=== PATIENT | male | born 1950 | race Caucasian/White ===

== ENCOUNTER 2016-10-02 22:45 | Emergency (ER) | payer BC ==
[~2016-10-02] VITALS: Ht 170.2 cm; Wt 103.9 kg
[~2016-10-02 22:45] MED LIST: ALT5 PO; ASPITAB67 PO; ATOR-24 PO; CLX20 PO; CYAN1TAB17 PO; INSDGIPEN SQ; INSU100I2 SQ; LEVO150T9 PO; METF500T5 PO; MULT-190 PO; MULT-506 PO
[2016-10-02 22:48] VITALS: TEMP 36.8; Ht 170.2 cm; Wt 103.9 kg
--- NOTE | 2016-10-02 23:25 | EMERGENCY ROOM VISIT NOTE ---
History Report prepared by Qing: Roverto Stone Under the Supervision of: Dr. Rafiq Larson M.D. First contact with patient: 23:08 Chief Complaint: OVERDOSE (ACCIDENTAL) Stated Complaint: TOOK 30 UNITS OF HUMALOG INSTEAD OF LANTUS History of Present Illness The patient is a 66 year old male who presents to the Emergency Room with complaints of a sudden insulin overdose occurring around 2200 tonight. The patient states that his sugar was up around 313, and he took 33 units of Humalog by accident, instead of his Lantus. The patient states that when his sugars get low he gets very argumentative. The patient denies any chest pain. Source of History: patient, spouse/significant other Onset: 2200 Position: other (global) Quality: other (insulin overdose) Timing: other (sudden) Associated Symptoms: No chest pain Review of Systems See HPI for pertinent positives & negatives. A total of 10 systems reviewed and were otherwise negative. Past Medical & Surgical Medical Problems: (1) Altered level of consciousness (2) Diabetes (3) Diabetic foot ulcer (4) Diabetic peripheral neuropathy associated with type 2 diabetes mellitus (5) Hyperlipidemia Nec/Nos (6) Hypertension Nos (7) Hypoglycemia (8) Hypothyroidism Nos (9) Loss of sensation Family History Cancer Diabetes mellitus Hypertension Social History Smoking Status: Never Smoker Marital Status: Housing Status: lives with significant other Occupation Status: employed, retired Current/Historical Medications Scheduled Atorvastatin (Lipitor), 40 MG PO QAM Brinzolamide-Brimonidine Tartr (Simbrinza), 1 DROP OP BID Citalopram (Citalopram Hydrobromide), 20 MG PO QAM Cyanocobalamin (B-12), 2,500 MCG PO QAM Insulin Glargine (Lantus Solostar), 32 UNITS SQ QPM Insulin Lispro (Human) (Humalog Kwikpen), UNITS SQ UD Levothyroxine Sodium (Levothyroxine Sodium), 1 TAB PO QAM Metformin Hcl Er (Glucophage Er), 1,000 MG PO DAILY @ EVENING MEAL Multivitamin (Multivitamin), 1 TAB PO QAM Ocuvite Preservision (Ocuvite Preservision), 1 TAB PO QAM Ramipril (Ramipril), 5 MG PO QAM Scheduled PRN Zogszqk-Ycxftqwredlxg-Bpaxujnz (Vanquish), 1 TAB PO TID PRN for Migraine Allergies Coded Allergies: Iodinated Diagnostic Agents (Verified Allergy, Unknown, PT UNSURE OF EXACT RXN BUT HAD ISSUE DURING TEST, 10/02/16) Iodine (Verified Allergy, Unknown, TOPICAL REDNESS AND EDEMA, 10/02/16) Physical Exam Vital Signs Date Time Temp Pulse Resp B/P Pulse Ox O2 Delivery O2 Flow Rate FiO2 10/03/16 00:48 73 18 139/71 97 10/03/16 00:32 73 18 139/71 97 Room Air 10/02/16 22:48 36.8 92 20 166/82 99 Room Air Physical Exam GENERAL: Patient is well appearing and in no acute distress. HEENT: No acute trauma, normocephalic atraumatic, mucous membranes moist, no nasal congestion, no scleral icterus. NECK: No stridor, no adenopathy, no meningismus, trachea is midline. LUNGS: No dyspnea. Clear to auscultation and equal bilaterally. No wheeze, no rhonchi. HEART: Regular rate and rhythm. No murmurs, rubs, gallops appreciated. ABDOMEN: Soft, nontender, bowel sounds positive, no masses appreciated, no peritonitis. BACK: No midline tenderness, no CVA tenderness EXTREMITIES: Normal motion all extremities, no cyanosis, no edema. NEUROLOGIC: Alert and oriented, no acute motor or sensory deficits, no focal weakness, cranial nerves grossly intact. SKIN: No rash, no jaundice, no diaphoresis. Medical Decision & Procedures Laboratory Results Test 10/03/16 00:35 Bedside Glucose 138 mg/dl (70-99) Laboratory results as reviewed by me. ED Course 2308: The patient was evaluated in room A2. A complete history and physical exam was performed. 0049: Reevaluated the patient, and he feels well. Discussed results and discharge instructions: He verbalized understanding and agreement. The patient is ready for discharge. Medical Decision Pleasant 66 yr old male arrives after accidentally giving himself 30 U of Humalog rather than his long acting lantus. This was not suicide attempt nor attempt at self harm. Given food on arrival. At 1.5-2 hours his BG troughed and then started coming back up. Stable, no distress and feels well. With improvement in BG and stable no indication for further monitoring, especially as he has at home. Will take half dose his Lantus when he gets home and monitor BG closely over next 12-24 hours. Impression Primary Impression: Accidental medication overdose Scribe Attestation The scribe's documentation has been prepared under my direction and personally reviewed by me in its entirety. I confirm that the note above accurately reflects all work, treatment, procedures, and medical decision making performed by me. Departure Information Dispostion Home / Self-Care Referrals Addy Dewitt M.D. (PCP) Forms HOME CARE DOCUMENTATION FORM, IMPORTANT VISIT INFORMATION Patient Instructions My [facility] Additional Instructions Take a half dose of your base Lantus dosing for the evening. Monitor your blood sugars closely over the next few hours and closely throughout the day. If confusion, altered mental status, seizures, vomiting, or other concerns, call 911 or return immediately. Problem Qualifiers Primary Impression: Accidental medication overdose Encounter type: initial encounter Qualified Codes: T50.901A - Poisoning by unspecified drugs, medicaments and biological substances, accidental ( unintentional), initial encounter
[2016-10-02] MEDS ORDERED: BRIN3SUS OP (23:36)
[2016-10-02] MEDS ORDERED: CLX20 PO (23:36)
[2016-10-02] MEDS ORDERED: RAMI5CAP PO (23:36)
[2016-10-03 00:48] VITALS: BP 139/71; PULSE 73; O2SAT 97
[2017-01-10] MEDS ORDERED: OXYC-57 PO (15:31)
[2017-01-10] MEDS ORDERED: INSDGIPEN SQ (15:31)
== END 2016-10-03 00:49 | disposition home or self-care (01) ==
LOC: C.EDB 22:46 → C.EDA 10-03 00:49
DX: T38.3X1A Poisoning by insulin and oral hypoglycemic [antidiabetic] drugs, accidental (unintentional), initial encounter (principal); X58.XXXA Exposure to other specified factors, initial encounter; E11.40 Type 2 diabetes mellitus with diabetic neuropathy, unspecified; E78.5 Hyperlipidemia, unspecified; I10 Essential (primary) hypertension; E03.9 Hypothyroidism, unspecified; Z79.4 Long term (current) use of insulin; Z79.84 Long term (current) use of oral hypoglycemic drugs; Z83.3 Family history of diabetes mellitus; Z82.49 Family history of ischemic heart disease and other diseases of the circulatory system

== ENCOUNTER 2017-01-08 13:01 | Inpatient (IN) | payer BC, OTHER ==
[~2017-01-08] VITALS: Ht 170.2 cm; Wt 100.4 kg
[~2017-01-08 13:01] MED LIST changes: -ALT5 PO; +BRIN3SUS OP; +RAMI5CAP PO
--- NOTE | 2017-01-08 13:26 | EMERGENCY ROOM VISIT NOTE ---
History Report prepared by Qing: Rachelle Yoon Under the Supervision of: Dr. Gregor Gabriel M.D. First contact with patient: 13:06 Chief Complaint: CHEST PAIN Stated Complaint: CHEST PAIN History of Present Illness The patient is a 66 year old white male who presents to the Emergency Room with complaints of a sudden fall that occurred around 0900. The patient states that he woke at 0900 and went go to upstairs to go to the bathroom. He states that he fell down approximately 6 stairs. The patient reports a positive LOC, noting that he woke up on the ground. He states that laid on the ground for an extended period of time, noting that he developed back pain and central chest pain. The patient denies any diaphoresis, shortness of breath, or chest pain prior to the fall. He denies being on any anti-coagulants. The patient denies any change in medications. He denies any headache, fever, chills, or abdominal pain. The patient denies taking anything for his pain. He states that he has noticed new pain to his bilateral legs due to the fall. Source of History: patient Onset: around 0900 Position: other (global) Quality: other (fall) Timing: other (sudden) Associated Symptoms: + LOC, + chest pain, + back pain, No fevers, No chills , No headache, No SOB, No abdominal pain Review of Systems See HPI for pertinent positives and negatives. A total of ten systems were reviewed and were otherwise negative. Past Medical & Surgical Medical Problems: (1) Altered level of consciousness (2) Diabetes (3) Diabetic foot ulcer (4) Diabetic peripheral neuropathy associated with type 2 diabetes mellitus (5) Fall (6) Hyperlipidemia Nec/Nos (7) Hypertension Nos (8) Hypoglycemia (9) Hypothyroidism Nos (10) Loss of sensation Family History Cancer Diabetes mellitus Hypertension Social History Smoking Status: Never Smoker Marital Status: Housing Status: lives with significant other Occupation Status: employed, retired Current/Historical Medications Scheduled Atorvastatin (Lipitor), 40 MG PO QAM Citalopram (Citalopram Hydrobromide), 20 MG PO QAM Cyanocobalamin (B-12), 2,500 MCG PO QAM Escitalopram Oxalate (Lexapro), 20 MG PO DAILY Insulin Glargine (Lantus Solostar), 32 UNITS SQ QPM Insulin Lispro (Human) (Humalog Kwikpen), UNITS SQ UD Levothyroxine Sodium (Levothyroxine Sodium), 1 TAB PO QAM Metformin Hcl Er (Glucophage Er), 1,000 MG PO DAILY @ EVENING MEAL Ramipril (Ramipril), 5 MG PO QAM Scheduled PRN Hydrocodone/Acetaminophen 5MG/325MG ([place] 5MG/325MG), 1 TABLET PO Q4 PRN for Pain Allergies Coded Allergies: Iodinated Diagnostic Agents (Verified Allergy, Unknown, PT UNSURE OF EXACT RXN BUT HAD ISSUE DURING TEST, 10/02/16) Iodine (Verified Allergy, Unknown, TOPICAL REDNESS AND EDEMA, 10/02/16) Physical Exam Vital Signs Date Time Temp Pulse Resp B/P (MAP) Pulse Ox O2 Delivery O2 Flow Rate FiO2 01/08/17 14:50 88 18 152/80 96 Room Air 01/08/17 13:22 96 Room Air 01/08/17 13:22 96 Room Air 01/08/17 13:22 36.9 85 16 169/82 96 Room Air 01/08/17 13:13 93 Physical Exam GENERAL: Awake, alert, well-appearing, NAD HENT: Normocephalic, atraumatic. EYES: Normal conjunctiva. Sclera non-icteric. Right greater than left anisocoria, but equally reactive to light, EOMI. Vision is grossly normal NECK: Supple. No nuchal rigidity. FROM. No c-spine tenderness. RESPIRATORY: CTAB, no rhonchi, wheezing, crackles CARDIAC: RRR, no MRG ABDOMEN: Soft, NTND, BS+ BACK: No paraspinal tenderness, no step-off, no lumbar or thoracic tenderness. MSK: Anterior chest wall pain, no crepitus, no bruising, mild right hip pain, left medial tibial pain, right lateral fibular pain, no LE edema NEURO: GCS 15, CN 2-12 intact, 5/5 upper and lower extremity strength, moves all 4s on command SKIN: No rash or jaundice noted. Medical Decision & Procedures ER Provider Diagnostic Interpretation: Radiology results as stated below per my review and radiologist interpretation: RIGHT TIBIA AND FIBULA 2 VIEWS CLINICAL HISTORY: Fall with leg pain. FINDINGS: AP and lateral views of the right tibia and fibula are obtained. No prior studies are available for comparison at the time of dictation. The skeletal structures are osteopenic. There is no radiographic evidence of right tibial or fibular fracture. The knee and ankle joints are grossly maintained. Dermal calcifications are noted in the calf. Mild soft tissue swelling is suggested. There is atherosclerotic calcification of the regional vessels. Advanced arthritic change is partially seen in the midfoot. There is a large plantar calcaneal enthesophyte. IMPRESSION: 1. Mild soft tissue swelling with no radiographic evidence of right tibial or fibular fracture. 2. Osteopenia and degenerative change as above. Electronically signed by: Ankit Lovell M.D. 01/08/2017 2:44 PM Dictated Date/Time: 01/08/2017 2:43 PM LEFT TIBIA/FIBULA 2 VIEWS ROUTINE CLINICAL HISTORY: Left lower leg pain status post trauma COMPARISON: None. DISCUSSION: The bones are osteopenic. No acute fractures or dislocations are visualized. There are vascular calcifications present. There is a plantar calcaneal spur. Arthritic changes are present within the midfoot. IMPRESSION: No acute fractures identified. Electronically signed by: Masoud Figueroa M.D. 01/08/2017 2:47 PM Dictated Date/Time: 01/08/2017 2:46 PM PELVIS MIN 3 VIEWS CLINICAL HISTORY: Pelvic pain status post trauma COMPARISON STUDY: No previous studies for comparison. FINDINGS: No acute fractures are visualized. There are mild degenerative changes within the hips. There is no SI joint diastases. There is no symphysis diastases. IMPRESSION: No fractures identified. Electronically signed by: Masoud Figueroa M.D. 01/08/2017 2:42 PM Dictated Date/Time: 01/08/2017 2:[address] HEAD WITHOUT CONTRAST (CT) CLINICAL HISTORY: Head trauma. Syncope. Anisocoria. COMPARISON STUDY: No previous studies for comparison. TECHNIQUE: Axial CT of the brain is performed from the vertex to the skull base. IV contrast was not administered for this examination. A dose lowering technique was utilized adhering to the principles of ALARA. CT DOSE: 1368.20 mGy.cm FINDINGS: No intra or extra-axial mass lesions are visualized. There is no CT evidence of acute cortical infarction. There is no evidence of midline shift. There is no acute hemorrhage. No calvarial fractures are visualized. There are patchy white matter hypodensities likely on a small vessel basis. There is no evidence of pathologic ventricular dilatation. There is no evidence of acute sinusitis. There is scalp edema at the right posterior at vertex IMPRESSION: No acute intracranial findings Electronically signed by: Masoud Figueroa M.D. 01/08/2017 2:12 PM Dictated Date/Time: 01/08/2017 2:11 PM (CHEST) THORAX WITHOUT CT DOSE: HISTORY: fall down stairs, anterior chest wall/sternal pain TECHNIQUE: Multiaxial CT images of the chest were performed without contrast. A dose lowering technique was utilized adhering to the principles of ALARA. COMPARISON: Chest 07/10/2007. FINDINGS: Nondisplaced bilateral upper manubrial fractures adjacent to the first rib articulations. Slightly displaced bilateral anterior first rib fractures. Mildly displaced right posterior right second through fifth rib fractures and nondisplaced right lateral third and fourth rib fractures. Nondisplaced fractures through the right anterior second and third costochondral junctions. No pneumothorax. The central airways are patent. A 4 mm nodule within the left lung apex on image 40. Mild dependent changes/atelectasis at the lung bases. Punctate calcified granulomas within the right middle lobe. A 4 mm nodule within the right lower lobe on image 209. Evaluation for mediastinal injury is suboptimal due to the lack of intravenous contrast. Small amount of retromanubrial hemorrhage. This is separate from the adjacent mediastinal vasculature structures. This is likely due to the manubrial fractures. The visualized liver, spleen, adrenal glands are unremarkable. No mediastinal or hilar lymphadenopathy. Normal caliber thoracic aorta. Trace pericardial fluid. Fluid-filled and mildly distended esophagus. Small amount pleural/extrapleural hemorrhage within the right lung apex adjacent to the rib fractures. IMPRESSION: 1. Multiple upper right rib fractures as described above. There is also an upper left first rib fracture. 2. Nondisplaced manubrial fractures near the bilateral first rib articulations. 3. Small amount of retromanubrial hemorrhage which is separate from the mediastinal vasculature structures. This is likely secondary to the manubrial fractures. Overall, there is suboptimal evaluation for injury to the mediastinal structures due to the lack of intravenous contrast. However, the aorta appears to be normal in caliber. 4. Small amount of pleural/extrapleural hemorrhage within the right lung apex adjacent to the rib fractures. 5. No pneumothorax. 6. Trace pericardial fluid. 7. There are total of 2 subcentimeter indeterminate pulmonary nodules within the lungs with the largest measuring 4 mm. Please refer to the chart below for recommended follow-up. Please refer to below summary of Fleischner criteria recommendations for follow-up of incidental CT nodules ([employer], Guidelines for management of small pulmonary nodules detected on CT scans: A statement from the Fleischner Society, Radiology 237: [phone].) SOLID NODULES Solitary nodule size: <6 mm * Low risk patients: no follow-up needed * high risk patients: optional CT at 12 months Solitary nodule size: 6-8 mm * Low risk patients: follow-up at 6-12 months, then consider further follow-up at 18-24 months * high risk patients: initial follow-up CT at 6-12 months and then at 18-24 months if no change Solitary nodule size: >8 mm * either low or high risk patients - consider follow-up CT at 3 months, and/or CT-PET, and/or biopsy Multiple nodules size: <6 mm * Low risk patients: no routine follow-up * high risk patients: optional CT at 12 months Multiple nodules size: 6-8 mm * Low risk patients: follow-up at 3-6 months, then consider further follow-up at 18-24 months * high risk patients: follow-up at 3-6 months, then at 18-24 months if no change Multiple nodules size: >8 mm * Low risk patients: follow-up at 3-6 months, then consider further follow-up at 18-24 months * high risk patients: follow-up at 3-6 months, then at 18-24 months if no change Note: newly detected indeterminate nodule in persons 35 years of age or older. * Low risk patients: minimal or absent history of smoking and/or other known risk factors * high risk patients: history of smoking or of other known risk factors (e.g. first degree relative with lung cancer, or exposure to asbestos, radon, uranium) * if a nodule up to 8 mm is partly solid or is ground glass further follow-up is required after 24 months to exclude possible slow growing adenocarcinoma (JESSICA) SUBSOLID NODULES Solitary pure ground-glass nodule * nodule size <6 mm - no CT follow-up required * nodule size >=6 mm - follow-up CT at 6-12 months, then every 2 years until 5 years Solitary part-solid nodule * nodule size <6 mm - no CT follow-up required * nodule size >=6 mm - follow-up CT at 3-6 months. If unchanged, and solid component remains <6 mm, then annual follow-up for 5 years Multiple subsolid nodules * nodule size <6 mm - follow-up CT at 3-6 months, consider further follow-up at 2 and 4 years if stable * nodule size >=6 mm - follow-up CT at 3-6 months, subsequent management based on the most suspicious nodule(s) Electronically signed by: Michael Cline M.D. 01/08/2017 2:26 PM Dictated Date/Time: 01/08/2017 2:11 PM Laboratory Results 01/08/17 13:40 Red Blood Count 4.13, Mean Corpuscular Volume 86.7, Mean Corpuscular Hemoglobin 30.0, Mean Corpuscular Hemoglobin Concent 34.6, Mean Platelet Volume 10.3, Neutrophils (%) (Auto) 87.1, Lymphocytes (%) (Auto) 7.1, Monocytes (%) (Auto) 4.9, Eosinophils (%) (Auto) 0.5, Basophils (%) (Auto) 0.1, Neutrophils # (Auto) 6.87, Lymphocytes # (Auto) 0.56, Monocytes # (Auto) 0.39, Eosinophils # (Auto) 0.04, Basophils # (Auto) 0.01 01/08/17 13:40 Test 01/08/17 13:40 01/08/17 13:47 01/08/17 13:48 01/08/17 14:52 White Blood Count 7.89 K/uL (4.8-10.8) Red Blood Count 4.13 M/uL (4.7-6.1) Hemoglobin 12.4 g/dL (14.0-18.0) Hematocrit 35.8 % (42-52) Mean Corpuscular Volume 86.7 fL (80-100) Mean Corpuscular Hemoglobin 30.0 pg (25-34) Mean Corpuscular Hemoglobin Concent 34.6 g/dl (32-36) Platelet Count 164 K/uL (130-400) Mean Platelet Volume 10.3 fL (7.4-10.4) Neutrophils (%) (Auto) 87.1 % Lymphocytes (%) (Auto) 7.1 % Monocytes (%) (Auto) 4.9 % Eosinophils (%) (Auto) 0.5 % Basophils (%) (Auto) 0.1 % Neutrophils # (Auto) 6.87 K/uL (1.4-6.5) Lymphocytes # (Auto) 0.56 K/uL (1.2-3.4) Monocytes # (Auto) 0.39 K/uL (0.11-0.59) Eosinophils # (Auto) 0.04 K/uL (0-0.5) Basophils # (Auto) 0.01 K/uL (0-0.2) RDW Standard Deviation 43.6 fL (36.4-46.3) RDW Coefficient of Variation 13.7 % (11.5-14.5) Immature Granulocyte % (Auto) 0.3 % Immature Granulocyte # (Auto) 0.02 K/uL (0.00-0.02) Prothrombin Time 10.0 SECONDS (9.0-12.0) Prothromb Time International Ratio 0.9 (0.9-1.1) Activated Partial Thromboplast Time 24.0 SECONDS (21.0-31.0) Partial Thromboplastin Ratio 0.9 Anion Gap 8.0 mmol/L (3-11) Est Creatinine Clear Calc Drug Dose 106.8 ml/min Estimated GFR () 109.2 Estimated GFR (Non- 94.3 BUN/Creatinine Ratio 18.4 (10-20) Calcium Level 8.6 mg/dl (8.5-10.1) Total Bilirubin 0.5 mg/dl (0.2-1) Direct Bilirubin 0.2 mg/dl (0-0.2) Aspartate Amino Transf (AST/SGOT) 31 U/L (15-37) Alanine Aminotransferase (ALT/SGPT) 31 U/L (12-78) Alkaline Phosphatase 101 U/L (45-117) Total Protein 6.2 gm/dl (6.4-8.2) Albumin 3.4 gm/dl (3.4-5.0) Bedside Troponin I < 0.030 ng/ml (0-0.045) Bedside Lactic Acid Venous 1.46 mmol/L (0.90-1.70) Venous Blood pH 7.35 (7.36-7.41) Venous Blood Partial Pressure CO2 48 mmHg (38.0-50.0) Venous Blood Partial Pressure O2 27 mmHg Venous Blood HCO3 26 mmol/L Venous Blood Oxygen Saturation < 60.0 % Venous Blood Base Excess 0.2 mEq/L Laboratory results reviewed by me Medications Administered Medications (Trade) Dose Ordered Sig/Victor Maunel Route Start Time Stop Time Status Last Admin Dose Admin Morphine Sulfate (MoRPHine SULFATE INJ) 2 mg Q3H PRN IV 01/08/17 16:30 01/22/17 16:29 01/08/17 17:27 2 MG Ondansetron HCl (Zofran Inj) 4 mg Q6H PRN IV 01/08/17 16:30 02/07/17 16:29 01/08/17 17:27 4 MG ECG Indication: chest pain Rate (beats per minute): 89 Rhythm: normal sinus Findings: other (normal MO and QRS intervals, questionable T wave flatteing in V2-V3, artifact noted, otherwise no ST-S changes or other T wave inversions) ED Course 1311: The patient was evaluated in room C5. A complete history and physical exam was performed. 1539: I reevaluated the patient and he is feeling breathing well. I discussed the exam findings with him and I discussed the treatment plan. He verbalized complete understanding and agreement. He will be evaluated for further treatment. 1546: I discussed the patients case with Dr. Smith, Cardiothoracic Surgery. He states that the patient should be evaluated under the hospitalist. He states that he will consult the patient. 1609: I discussed the patients [place] [facility] [place] is going to talk to Dr. Smith regarding who will evaluate the patient primarily. 1630: I spoke to Dr. Smith, Cardiothoracic Surgery. He is going to evaluate the patient primarily. Medical Decision Triage Nursing notes reviewed. The patient's presentation and history were concerning for syncope, electrolyte abnormality, anemia, dehydration, ACS, ICH, rib fracture, strain, sprain. Patient is 67-year-old history diabetes, hypothyroid, hypertension, hyperlipidemia presents with chief complaint of chest pain. Patient's chest pain is reproducible anterior left and right parts of the chest. Patient states he was going up some stairs and afterwards he had fallen down them and had been laying on his chest for a prolonged period time. Patient did have syncope. Patient denies any bleeding. He does not take any routine blood thinning medications. Patient had CT of the chest in addition to EKGs and blood work. Patient had a negative troponin presently normal EKG not concerning for acute ischemia. Patient did have multiple rib fractures. Patient was also noted to have a manubrial fracture and possible retrosternal hematoma. I spoke with CT surgery team who agreed that the patient would benefit from admission and observation. Patient's incentive spirometry was greater than 2000. Patient's pain is adequately controlled at the time of admission. Medication Reconcilliation Current Medication List: was personally reviewed by me Blood Pressure Screening Patient's blood pressure: Elevated blood pressure Blood pressure disposition: Elevated BP felt to be situational, Did not require urgent referral Consults Time Called: 1500 Consulting Physician: Dr. Smith, Cardiothoracic Surgery Returned Call: 1541 I discussed the patients case with Dr. Smith, Cardiothoracic Surgery. He states that the patient should be evaluated under the hospitalist. He states that he will consult the patient. Additional Consults: Time Called: 1558 Consulted Physician: SANDRITA Pereyra Returned Call: 1552 Additional Comments: I discussed the patients case with SANDRITA Pereyra. He is going to talk to Dr. Smith regarding who will evaluate the patient primarily. Impression Primary Impression: Fracture of manubrium Additional Impressions: Multiple fractures of ribs of right side Chest wall pain Chest wall hematoma Scribe Attestation The scribe's documentation has been prepared under my direction and personally reviewed by me in its entirety. I confirm that the note above accurately reflects all work, treatment, procedures, and medical decision making performed by me. Departure Information Dispostion Being Evaluated By Surgeon Addy No M.D. (PCP) Problem Qualifiers Primary Impression: Fracture of manubrium Encounter type: initial encounter Fracture type: closed Qualified Codes: S22.21XA - Fracture of manubrium, initial encounter for closed fracture Additional Impressions: Multiple fractures of ribs of right side Encounter type: initial encounter Fracture type: closed Qualified Codes: S22.41XA - Multiple fractures of ribs, right side, initial encounter for closed fracture Chest wall hematoma Encounter type: initial encounter Laterality: unspecified laterality Qualified Codes: S20.219A - Contusion of unspecified front wall of thorax, initial encounter
[2017-01-08 14:04] LABS: BASO % 0.1 %; BASO ABS # 0.01 K/uL (0-0.2); COMPLETE YES; EOS % 0.5 %; HEMATOCRIT 35.8 % (42-52); IG% 0.3 %; LYMPH % 7.1 %; LYMPH ABS # 0.56 K/uL (1.2-3.4); MEAN CELL VOLUME 86.7 fL (80-100); MEAN CORPUSCULAR HGB CONC 34.6 g/dl (32-36); MEAN PLATELET VOLUME 10.3 fL (7.4-10.4); MONO % 4.9 %; NEUT % 87.1 %; PLATELET COUNT 164 K/uL (130-400); RED BLOOD COUNT 4.13 M/uL (4.7-6.1); WHITE BLOOD COUNT 7.89 K/uL (4.8-10.8)
[2017-01-08 14:11] LABS: INR 0.9 (0.9-1.1); PARTIAL THROMBOPLASTIN RATIO 0.9
--- NOTE | 2017-01-08 14:13 | DIAGNOSTIC IMAGING REPORT ---
CT HEAD WITHOUT CONTRAST (CT) CLINICAL HISTORY: Head trauma. Syncope. Anisocoria. COMPARISON STUDY: No previous studies for comparison. TECHNIQUE: Axial CT of the brain is performed from the vertex to the skull base. IV contrast was not administered for this examination. A dose lowering technique was utilized adhering to the principles of ALARA. CT DOSE: 1368.20 mGy.cm FINDINGS: No intra or extra-axial mass lesions are visualized. There is no CT evidence of acute cortical infarction. There is no evidence of midline shift. There is no acute hemorrhage. No calvarial fractures are visualized. There are patchy white matter hypodensities likely on a small vessel basis. There is no evidence of pathologic ventricular dilatation. There is no evidence of acute sinusitis. There is scalp edema at the right posterior at vertex IMPRESSION: No acute intracranial findings Electronically signed by: Masoud Figueroa M.D. 01/08/2017 2:12 PM Dictated Date/Time: 01/08/2017 2:11 PM
[2017-01-08 14:20] LABS: BUN/CREATININE RATIO 18.4 (10-20); CALCIUM 8.6 mg/dl (8.5-10.1); CREATININE 0.75 mg/dl (0.60-1.40); POTASSIUM 3.8 mmol/L (3.5-5.1)
--- NOTE | 2017-01-08 14:28 | DIAGNOSTIC IMAGING REPORT ---
(CHEST) THORAX WITHOUT CT DOSE: HISTORY: fall down stairs, anterior chest wall/sternal pain TECHNIQUE: Multiaxial CT images of the chest were performed without contrast. A dose lowering technique was utilized adhering to the principles of ALARA. COMPARISON: Chest 07/10/2007. FINDINGS: Nondisplaced bilateral upper manubrial fractures adjacent to the first rib articulations. Slightly displaced bilateral anterior first rib fractures. Mildly displaced right posterior right second through fifth rib fractures and nondisplaced right lateral third and fourth rib fractures. Nondisplaced fractures through the right anterior second and third costochondral junctions. No pneumothorax. The central airways are patent. A 4 mm nodule within the left lung apex on image 40. Mild dependent changes/atelectasis at the lung bases. Punctate calcified granulomas within the right middle lobe. A 4 mm nodule within the right lower lobe on image 209. Evaluation for mediastinal injury is suboptimal due to the lack of intravenous contrast. Small amount of retromanubrial hemorrhage. This is separate from the adjacent mediastinal vasculature structures. This is likely due to the manubrial fractures. The visualized liver, spleen, adrenal glands are unremarkable. No mediastinal or hilar lymphadenopathy. Normal caliber thoracic aorta. Trace pericardial fluid. Fluid-filled and mildly distended esophagus. Small amount pleural/extrapleural hemorrhage within the right lung apex adjacent to the rib fractures. IMPRESSION: 1. Multiple upper right rib fractures as described above. There is also an upper left first rib fracture. 2. Nondisplaced manubrial fractures near the bilateral first rib articulations. 3. Small amount of retromanubrial hemorrhage which is separate from the mediastinal vasculature structures. This is likely secondary to the manubrial fractures. Overall, there is suboptimal evaluation for injury to the mediastinal structures due to the lack of intravenous contrast. However, the aorta appears to be normal in caliber. 4. Small amount of pleural/extrapleural hemorrhage within the right lung apex adjacent to the rib fractures. 5. No pneumothorax. 6. Trace pericardial fluid. 7. There are total of 2 subcentimeter indeterminate pulmonary nodules within the lungs with the largest measuring 4 mm. Please refer to the chart below for recommended follow-up. Please refer to below summary of Fleischner criteria recommendations for follow-up of incidental CT nodules ([employer] [facility], Guidelines for management of small pulmonary nodules detected on CT scans: A statement from the Fleischner Society, Radiology 237: [phone].) SOLID NODULES Solitary nodule size: <6 mm * Low risk patients: no follow-up needed * high risk patients: optional CT at 12 months Solitary nodule size: 6-8 mm * Low risk patients: follow-up at 6-12 months, then consider further follow-up at 18-24 months * high risk patients: initial follow-up CT at 6-12 months and then at 18-24 months if no change Solitary nodule size: >8 mm * either low or high risk patients - consider follow-up CT at 3 months, and/or CT-PET, and/or biopsy Multiple nodules size: <6 mm * Low risk patients: no routine follow-up * high risk patients: optional CT at 12 months Multiple nodules size: 6-8 mm * Low risk patients: follow-up at 3-6 months, then consider further follow-up at 18-24 months * high risk patients: follow-up at 3-6 months, then at 18-24 months if no change Multiple nodules size: >8 mm * Low risk patients: follow-up at 3-6 months, then consider further follow-up at 18-24 months * high risk patients: follow-up at 3-6 months, then at 18-24 months if no change Note: newly detected indeterminate nodule in persons 35 years of age or older. * Low risk patients: minimal or absent history of smoking and/or other known risk factors * high risk patients: history of smoking or of other known risk factors (e.g. first degree relative with lung cancer, or exposure to asbestos, radon, uranium) * if a nodule up to 8 mm is partly solid or is ground glass further follow-up is required after 24 months to exclude possible slow growing adenocarcinoma (JESSICA) SUBSOLID NODULES Solitary pure ground-glass nodule * nodule size <6 mm - no CT follow-up required * nodule size >=6 mm - follow-up CT at 6-12 months, then every 2 years until 5 years Solitary part-solid nodule * nodule size <6 mm - no CT follow-up required * nodule size >=6 mm - follow-up CT at 3-6 months. If unchanged, and solid component remains <6 mm, then annual follow-up for 5 years Multiple subsolid nodules * nodule size <6 mm - follow-up CT at 3-6 months, consider further follow-up at 2 and 4 years if stable * nodule size >=6 mm - follow-up CT at 3-6 months, subsequent management based on the most suspicious nodule(s) . Electronically signed by: Michael Cline M.D. 01/08/2017 2:26 PM Dictated Date/Time: 01/08/2017 2:11 PM
--- NOTE | 2017-01-08 14:44 | DIAGNOSTIC IMAGING REPORT ---
PELVIS MIN 3 VIEWS CLINICAL HISTORY: Pelvic pain status post trauma COMPARISON STUDY: No previous studies for comparison. FINDINGS: No acute fractures are visualized. There are mild degenerative changes within the hips. There is no SI joint diastases. There is no symphysis diastases. IMPRESSION: No fractures identified. Electronically signed by: Masoud Figueroa M.D. 01/08/2017 2:42 PM Dictated Date/Time: 01/08/2017 2:41 PM
--- NOTE | 2017-01-08 14:45 | DIAGNOSTIC IMAGING REPORT ---
RIGHT TIBIA AND FIBULA 2 VIEWS CLINICAL HISTORY: Fall with leg pain. FINDINGS: AP and lateral views of the right tibia and fibula are obtained. No prior studies are available for comparison at the time of dictation. The skeletal structures are osteopenic. There is no radiographic evidence of right tibial or fibular fracture. The knee and ankle joints are grossly maintained. Dermal calcifications are noted in the calf. Mild soft tissue swelling is suggested. There is atherosclerotic calcification of the regional vessels. Advanced arthritic change is partially seen in the midfoot. There is a large plantar calcaneal enthesophyte. IMPRESSION: 1. Mild soft tissue swelling with no radiographic evidence of right tibial or fibular fracture. 2. Osteopenia and degenerative change as above. Electronically signed by: Ankit Lovell M.D. 01/08/2017 2:44 PM Dictated Date/Time: 01/08/2017 2:43 PM
--- NOTE | 2017-01-08 14:49 | DIAGNOSTIC IMAGING REPORT ---
LEFT TIBIA/FIBULA 2 VIEWS ROUTINE CLINICAL HISTORY: Left lower leg pain status post trauma COMPARISON: None. DISCUSSION: The bones are osteopenic. No acute fractures or dislocations are visualized. There are vascular calcifications present. There is a plantar calcaneal spur. Arthritic changes are present within the midfoot. IMPRESSION: No acute fractures identified. Electronically signed by: Masoud Figueroa M.D. 01/08/2017 2:47 PM Dictated Date/Time: 01/08/2017 2:46 PM
[2017-01-08 15:03] LABS: VEN BLOOD GAS BASE EXCESS 0.2 mEq/L; VENOUS BLOOD GAS PCO2 48 mmHg (38.0-50.0); VENOUS BLOOD GAS PO2 27 mmHg
[2017-01-08 15:10] LABS: VEN BLD GAS O2 SATURATION < 60.0 %
[2017-01-08] MEDS ORDERED: ESCI1TAB10 PO (15:58)
[2017-01-08] MEDS ORDERED: HYDR-5688 PO (15:58)
[2017-01-08] MEDS ORDERED: ONDANSETRON INJ 2 MG/ML 2 ML VIAL IV PRN (16:30)
[2017-01-08] MEDS ORDERED: POLYETHYLENE (MIRALAX) 17 GM PACK PO PRN (16:30)
[2017-01-08] MEDS ORDERED: KETOROLAC TROMETHAMINE 15 MG/ML VIAL IV PRN (16:30)
[2017-01-08] MEDS ORDERED: GLUCOSE 40% GEL 15 GM TUBE PO PRN (17:00)
[2017-01-08] MEDS ORDERED: GLUCOSE 10 TABS/TUBE PO PRN (17:00)
[2017-01-08] MEDS ORDERED: GLUCAGON FOR INJ 1 MG VIAL SQ PRN (17:00)
[2017-01-08] MEDS ORDERED: DEXTROSE 50% 50 ML SYR IV PRN (17:00)
[2017-01-08 17:06] LABS: URINE APPEARANCE CLEAR (CLEAR); URINE BILIRUBIN NEG (NEG); URINE COLOR YELLOW; URINE NITRITE NEG (NEG); URINE PH 5.5 (4.5-7.5); UROBILINOGEN NEG (NEG)
[2017-01-08 17:14] LABS: MANUAL MICROSCOPIC REQUIRED? NO; REVIEW REQ? NO
[2017-01-08] MEDS ORDERED: KETOROLAC TROMETHAMINE 30 MG/ML VIAL ONE (17:23)
[2017-01-08] MEDS: MoRPHine SULFATE 2 MG/ML CARP IV PRN (17:27)
--- NOTE | 2017-01-08 18:30 | History and Physical ---
History & Physical Date of Service Jan 08, 2017. History & Physical H & P Dictated #[id number]
--- NOTE | 2017-01-08 18:34 | Medical Consult ---
Consultation Date of Consultation: Jan 08, 2017. Attending Physician: History of Present Illness This is a 66 yo M with PMHx of DM type 1 on insulin, retinopathy and peripheral neuropathy, hx of hypoglycemic episodes, HTN, HLD, hypothyroidism and depression who presents s/p fall this morning. He reports this occurred shortly after his went to work. He was carrying a watermelon up 6 steps to a landing from the first floor, and then had another 6 steps to go. He is unable to remember the even of falling, and it was unwitnessed. The patient admits to LOC, but no loss of bowel or bladder control. He reports waking up after an unknown amount of time on the step landing, and ate a piece of watermelon which was smashed into pieces near him on the landing because he thought he could have had a hypoglycemic episode. He did not take his morning insulin or other meds, but had not eaten. The patients chest pain led to being brought to the ER, here he was found to have multiple rib fractures, mostly on the R side. He sustained an injury to the R elbow, and a small abrasion on his right knee. He does not appear to have hit his head. Of note, the patient has been struggling with depression symptoms including excessive crying, low mood, and fatigue since last winter on outpatient record review. He reports his mother last Saturday, and that the was Saturday. He has been on Lexapro since end of August, and it was increased to 20 mg last month. He had been switched off celexa so had extra tablets so was taking both celexa 20 mg tab and Lexapro 20 mg together since Saturday. He denies any history of seizure activity. He denies any suicidal or homicidal ideations. Past Medical/Surgical History Medical Problems: (1) Accidental medication overdose Status: Acute (2) Chest wall hematoma Status: Acute (3) Chest wall pain Status: Acute (4) Diabetes Status: Chronic (5) Fracture of manubrium Status: Acute (6) Hyperlipidemia Nec/Nos Status: Chronic (7) Hypertension Nos Status: Chronic (8) Hypothyroidism Nos Status: Chronic (9) Multiple fractures of ribs of right side Status: Acute Family History Cancer Diabetes mellitus Hypertension Social History Smoking Status: Former Smoker (Remote 5-8 cigarrettes daily x 10 years while a teenager) Smokeless Tobacco Use: No Alcohol Use: none Drug Use: none Marital Status: Housing Status: lives with significant other Occupation Status: employed, retired Allergies Coded Allergies: Iodinated Diagnostic Agents (Verified Allergy, Unknown, PT UNSURE OF EXACT RXN BUT HAD ISSUE DURING TEST, 10/02/16) Iodine (Verified Allergy, Unknown, TOPICAL REDNESS AND EDEMA, 10/02/16) Current Inpatient Medications Current Inpatient Medications Medications (Trade) Dose Ordered Sig/Victor Manuel Route Start Time Stop Time Status Last Admin Dose Admin Atorvastatin Calcium (Lipitor Tab) 40 mg QAM PO 01/09/17 09:00 02/08/17 08:59 Citalopram Hydrobromide (celeXA TAB) 20 mg QAM PO 01/09/17 09:00 02/08/17 08:59 Escitalopram Oxalate (Lexapro Tab) 20 mg DAILY PO 01/09/17 09:00 02/08/17 08:59 Insulin Glargine (Lantus Solostar Pen) 32 units QPM SQ 01/08/17 21:00 02/07/17 20:59 Levothyroxine Sodium (Synthroid Tab) 150 mcg DAILYBB PO 01/09/17 07:00 02/08/17 06:59 Cyanocobalamin (Vitamin B-12 Tab) 2,500 mcg QAM PO 01/09/17 09:00 02/08/17 08:59 Enalapril Maleate (Vasotec Tab) 20 mg QAM PO 01/09/17 09:00 02/08/17 08:59 Insulin Aspart (novoLOG ASPART) SLIDING SCALE G... ACHS SC 01/08/17 21:00 02/07/17 20:59 Morphine Sulfate (MoRPHine SULFATE INJ) 2 mg Q3H PRN IV 01/08/17 16:30 01/22/17 16:29 Acetaminophen 1000 mg/Empty Bag 100 ml @ 400 mls/hr Q8H IV 01/08/17 16:30 02/07/17 16:29 UNV Oxycodone HCl (Roxicodone Immediate Rel Tab) 5 mg Q6H PRN PO 01/08/17 16:30 01/22/17 16:29 Ketorolac Tromethamine (Toradol Inj) 15 mg Q6H PRN IV 01/08/17 16:30 01/13/17 16:29 Enoxaparin Sodium (Lovenox Inj) 30 mg Q24H SC 01/08/17 21:00 02/07/17 20:59 Ondansetron HCl (Zofran Inj) 4 mg Q6H PRN IV 01/08/17 16:30 02/07/17 16:29 Polyethylene (Miralax Powder Packet) 17 gm DAILY PRN PO 01/08/17 16:30 02/07/17 16:29 Docusate Sodium (coLACE CAP) 100 mg BID PO 01/08/17 21:00 02/07/17 20:59 Glucose (Glucose 40% Gel) 15-30 GRAMS 15 GRAMS... UD PRN PO 01/08/17 17:00 02/07/17 16:59 Glucose (Glucose Chew Tab) 4-8 Tablets 4 Tabl... UD PRN PO 01/08/17 17:00 02/07/17 16:59 Dextrose (Dextrose 50% 50ML Syringe) 25-50ML OF 50% DW IV FOR... UD PRN IV 01/08/17 17:00 02/07/17 16:59 Glucagon (Glucagon Inj) 1 mg UD PRN SQ 01/08/17 17:00 02/07/17 16:59 Review of Systems Constitutional: No fever, No chills, No sweats Eyes: + problem reported (legally blind ), No worsening of vision, No redness ENT: No hearing loss, No trouble swallowing Respiratory: No cough, No shortness of breath, No dyspnea on exertion, No dyspnea at rest Cardiovascular: + chest pain, No edema, No palpitations Abdomen: No pain, No nausea, No vomiting, No diarrhea, No constipation Musculoskeletal: No joint pain, No swelling, No calf pain Neurologic: No memory loss, No paralysis, No weakness, No numbness/tingling, No balance problems Psychiatric: + depression symptoms, No anxiety, No substance abuse Endocrine: No fatigue Hematologic / Lymphatic: No abnormal bleeding/bruising Integumentary: No rash, No itch Physical Exam Date Time Temp Pulse Resp B/P (MAP) Pulse Ox O2 Delivery O2 Flow Rate FiO2 01/08/17 16:48 93 16 168/80 97 Room Air 01/08/17 14:50 88 18 152/80 96 Room Air 01/08/17 13:22 96 Room Air 01/08/17 13:22 96 Room Air 01/08/17 13:22 36.9 85 16 169/82 96 Room Air 01/08/17 13:13 93 General Appearance: WD/WN, no apparent distress Head: normocephalic, atraumatic Eyes: PERRL, EOMI ENT: hearing grossly normal, pharynx normal Neck: supple, thyroid normal Respiratory/Chest: lungs clear, no respiratory distress, no accessory muscle use, + rales, + pertinent finding (chest wall tenderness with palpation) Cardiovascular: regular rate, rhythm, no murmur, normal peripheral pulses Abdomen/GI: normal bowel sounds, non tender, soft Back: normal inspection Extremities/Musculoskelatal: no calf tenderness, no pedal edema, + pertinent finding (R elbow with developing ecchymosis, + R knee with small abraision) Neurologic/Psych: alert, normal reflexes, oriented x 3 Skin: normal color, warm/dry Laboratory Results Last 24 Hours Test 01/08/17 13:40 01/08/17 13:47 01/08/17 13:48 01/08/17 14:52 White Blood Count 7.89 K/uL Red Blood Count 4.13 M/uL Hemoglobin 12.4 g/dL Hematocrit 35.8 % Mean Corpuscular Volume 86.7 fL Mean Corpuscular Hemoglobin 30.0 pg Mean Corpuscular Hemoglobin Concent 34.6 g/dl Platelet Count 164 K/uL Mean Platelet Volume 10.3 fL Neutrophils (%) (Auto) 87.1 % Lymphocytes (%) (Auto) 7.1 % Monocytes (%) (Auto) 4.9 % Eosinophils (%) (Auto) 0.5 % Basophils (%) (Auto) 0.1 % Neutrophils # (Auto) 6.87 K/uL Lymphocytes # (Auto) 0.56 K/uL Monocytes # (Auto) 0.39 K/uL Eosinophils # (Auto) 0.04 K/uL Basophils # (Auto) 0.01 K/uL RDW Standard Deviation 43.6 fL RDW Coefficient of Variation 13.7 % Immature Granulocyte % (Auto) 0.3 % Immature Granulocyte # (Auto) 0.02 K/uL Prothrombin Time 10.0 SECONDS Prothromb Time International Ratio 0.9 Activated Partial Thromboplast Time 24.0 SECONDS Partial Thromboplastin Ratio 0.9 Sodium Level 142 mmol/L Potassium Level 3.8 mmol/L Chloride Level 110 mmol/L Carbon Dioxide Level 24 mmol/L Anion Gap 8.0 mmol/L Blood Urea Nitrogen 14 mg/dl Creatinine 0.75 mg/dl Est Creatinine Clear Calc Drug Dose 106.8 ml/min Estimated GFR () 109.2 Estimated GFR (Non- 94.3 BUN/Creatinine Ratio 18.4 Random Glucose 179 mg/dl Calcium Level 8.6 mg/dl Total Bilirubin 0.5 mg/dl Direct Bilirubin 0.2 mg/dl Aspartate Amino Transf (AST/SGOT) 31 U/L Alanine Aminotransferase (ALT/SGPT) 31 U/L Alkaline Phosphatase 101 U/L Total Protein 6.2 gm/dl Albumin 3.4 gm/dl Bedside Troponin I < 0.030 ng/ml Bedside Lactic Acid Venous 1.46 mmol/L Venous Blood pH 7.35 Venous Blood Partial Pressure CO2 48 mmHg Venous Blood Partial Pressure O2 27 mmHg Venous Blood HCO3 26 mmol/L Venous Blood Oxygen Saturation < 60.0 % Venous Blood Base Excess 0.2 mEq/L Test 01/08/17 16:42 Assessment & Plan This is a 66 yo M with PMHx of DM type 1 on insulin, retinopathy and peripheral neuropathy, hx of hypoglycemic episodes, HTN, HLD, hypothyroidism and depression who presents s/p fall this morning. S/p fall suffering Multiple Rib fractures - Thoracic medicine as the primary team - CT chest reviewed showing nondisplaced upper manubrial fractures, displaced bilateral anterior 1st rib fractures, R posterior 2-5th rib fx, small retromanubrial hemorrhage, pleural/extrapleural hemorrhage in the R lung apex, and a 2 subcentimeter pulmonary nodule - Analgesia per the primary team - Etiology of the fall possibly hypoglycemic vs seizure? Pt was doubling antidepressants- see below. DM Type I - Continue on home lantus 30 U QPM - Holding metformin 1000 mg QPM with contrast - ISS with accuchecks - Pt did not receive his medications this morning prior to the fall episode, so would less likely a hypoglycemic episode. Depression - major depressive disorder, recurrent - Continue on Lexapro 20 mg daily: The patient had been taking his old prescription of Celexa 20 mg and Lexapro 20 mg since his mothers last Saturday because of his excessive crying episodes. I have concern for seizure possibility since the patient was taking two SSRIs together which would decrease the seizure threshold, and had increased the dosage of Lexapro to 20 mg approximately 4 weeks ago. - Would consult neurology if this is not thought to be hypoglycemic - He does not see a counselor, so would recommend this as an outpatient HTN - Continue ramipril 5 mg daily HLD - Cont statin therapy Hypothyroidism - Continue levothyroxine 150 mcg daily Neutraceuticals - Continue MVI, Vit B 12 and Vit D as per [facility] meds DVT ppx: Teds, scds CODE STATUS: FULL CODE Disposition: From home, discharge when medically stable Consult Note & Attending Attestation: Pt seen/examined, chart reviewed, care plan d/w DON Hudson. I agree w/ the frank components of her consult documentation. 66yo male with T1DM on complex insulin regimen who presents after having been found on the landing of his stairs at his home by his family. He fell down at least 6-7 steps. He had loss of consciousness. He denies having had prodromal symptoms prior to the event. W/u in ER revealed numerous rib fractures and other intra-thoracic injuries. He was admitted by the thoracic surgical service. PMH, PSH, allergies, meds, sochx, famhx, ros - reviewed VSS gen - comfortable neck - no JVD heart - RRR lungs - CTA b/l chest - tender to palpation over sternal region abd - soft, NT, ND ext - no edema CT chest results reviewed CPK just over 1000 troponin neg cbc, bmp wnl A/P: 1. probable syncopal episode on stair well leading to a fall with numerous thoracic injuries including rib fractures etc 2. cannot r/o hypoglycemia as cause of #1 3. cannot r/o seizure as cause of #1 but odds of such are low 4. mild rhabdomyolysis from fall 5. uncontrolled T1DM with frequent hypoglycemia at home appreciate thoracic surgery service for assuming this patient's care continue lantus + novolog hydrate with NSS due to #4; serial CPK levels; hold statin while CPK is elevated will need PT, OT tez ANDRES MD
[2017-01-08 19:01] VITALS: BP 149/79; PULSE 89; TEMP 36.9; O2SAT 97
[2017-01-08 19:13] VITALS: BP 149/79; PULSE 89; TEMP 36.9; O2SAT 97; BMI 33.5
[2017-01-08] MEDS: ACETAMINOPHEN IV 1,000 MG in EMPTY BAG 0 ML IV SCH (19:30)
[2017-01-08] MEDS: INSULIN ASPART 100 UNITS/ML 3 ML PEN SC SCH ×2 (19:31→21:38)
--- NOTE | 2017-01-08 20:08 | DIAGNOSTIC IMAGING REPORT ---
CAROTID DOPPLER NECK ART HISTORY: Mental status change syncope COMPARISON: None. TECHNIQUE: Real-time, grayscale, and color Doppler sonography of the carotid arteries was performed. Imaging reviewed in the transverse and longitudinal planes. All measurements were calculated based on NASCET criteria. FINDINGS: Antegrade flow is seen in the bilateral vertebral arteries. The brachial pressures are hemodynamically similar. Moderate plaque bilaterally The peak systolic velocity within the right ICA is 112. The right systolic ratio is 1.5. The peak systolic velocity within the left ICA is 95. The left systolic ratio is 1.4. IMPRESSION: No hemodynamically significant stenosis seen within the carotid arteries. Moderate atherosclerotic narrowing of the external carotid arteries bilaterally. The above report was generated using voice recognition software. It may contain grammatical, syntax or spelling errors. Electronically signed by: Carlos Poole M.D. 01/08/2017 8:07 PM Dictated Date/Time: 01/08/2017 8:06 PM
[2017-01-08 20:26] LABS: CKMB/CK RATIO 0.9 (0-3.0)
[2017-01-08 20:30] VITALS: O2SAT 96
[2017-01-08] MEDS ORDERED: INSULIN GLARGINE SOLOSTAR 100 UNITS/ML 3 ML PEN SQ SCH (21:00)
[2017-01-08] MEDS ORDERED: IV FLUIDS COMPLETED PRN (21:30)
[2017-01-08] MEDS: ENOXAPARIN 30 MG/0.3 ML SYR SC SCH (21:37)
[2017-01-08] MEDS: DOCUSATE SODIUM 100 MG CAP PO SCH (21:37)
--- NOTE | 2017-01-08 22:21 | SURGICAL CONSULTATION ---
DATE OF CONSULTATION: 01/08/2017 Mr. Yoder was seen today, on 01/08/2017, on a referral, in the Emergency Room. He is a 66-year-old male, who is legally blind for many years due to his diabetic retinopathy. He was, apparently, going up the stairs and found himself at the bottom of the stairs. He does not remember falling. He had a syncopal episode. This happened about 7 hours before I saw him. A CT scan was obtained and there were questionable fractures of the manubrium as well as the first rib, although I am not convinced that those are actual fractures. He does have pain in his sternum when he coughs. I detect no crepitus. There is no evidence of pulmonary contusion. There is no evidence of any pleural fluid. There may be a hematoma in the retrosternal area or retro manubrial area; however, it is modest, at best. We are going to admit him to a monitored bed. I had a long talk with the patient and his 2 daughters. For specifics of this admission note, please refer to Mr. Rojelio Rodas's note.
[2017-01-08 23:43] VITALS: BP 122/67; PULSE 68; TEMP 36.9; O2SAT 95
[2017-01-09 02:54] LABS: CKMB/CK RATIO 0.7 (0-3.0)
[2017-01-09] MEDS: ACETAMINOPHEN IV 1,000 MG in EMPTY BAG 0 ML IV SCH ×3 (03:01→19:19)
[2017-01-09] MEDS: SODIUM CHLORIDE 0.9% 1000ML 1,000 ML IV SCH ×3 (04:02→19:20)
[2017-01-09 04:04] VITALS: BP 145/69; PULSE 74; TEMP 36.8; O2SAT 98
[2017-01-09] MEDS: LEVOTHYROXINE 150 MCG TAB PO SCH (06:09)
[2017-01-09 06:25] LABS: BASO % 0.2 %; BASO ABS # 0.01 K/uL (0-0.2); COMPLETE YES; EOS % 4.4 %; HEMATOCRIT 36.6 % (42-52); IG% 0.2 %; LYMPH ABS # 1.93 K/uL (1.2-3.4); MEAN CELL VOLUME 88.4 fL (80-100); MEAN CORPUSCULAR HEMOGLOBIN 28.5 pg (25-34); MEAN CORPUSCULAR HGB CONC 32.2 g/dl (32-36); MEAN PLATELET VOLUME 9.5 fL (7.4-10.4); MONO % 12.4 %; NEUT % 52.8 %; PLATELET COUNT 167 K/uL (130-400); RED BLOOD COUNT 4.14 M/uL (4.7-6.1); WHITE BLOOD COUNT 6.43 K/uL (4.8-10.8)
[2017-01-09] MEDS: INSULIN ASPART 100 UNITS/ML 3 ML PEN SC SCH ×4 (06:30→20:48)
[2017-01-09 07:05] LABS: BUN/CREATININE RATIO 19.9 (10-20); CALCIUM 8.3 mg/dl (8.5-10.1); CREATININE 0.88 mg/dl (0.60-1.40)
--- NOTE | 2017-01-09 07:43 | DIAGNOSTIC IMAGING REPORT ---
CHEST ONE VIEW PORTABLE CLINICAL HISTORY: 66 years-old Male presenting with blunt chest trauma. TECHNIQUE: Portable upright AP view of the chest was obtained. COMPARISON: CT chest from 01/08/2017. FINDINGS: Cardiomediastinal silhouette normal. Previously noted subcentimeter nodules at the left apex and right base are not visible on this radiograph. No focal infiltrate. Small amount of apparent pleural thickening along the apices laterally likely indicating extrapleural hematoma secondary to rib fractures. Previously identified fractures of the anterior first left rib and multiple posterior upper right ribs better appreciated on recent CT. Manubrial fracture not appreciated on this radiograph. Degenerative changes of the thoracic spine. Upper abdomen normal. IMPRESSION: 1. Small amount of extrapleural hematoma at the lung apices secondary to bilateral upper rib fractures. No other evidence of acute cardiopulmonary disease. Electronically signed by: Addy Bullock M.D. 01/09/2017 7:42 AM Dictated Date/Time: 01/09/2017 7:39 AM
[2017-01-09 07:55] VITALS: BP 148/78; PULSE 90; TEMP 36.6; O2SAT 92
[2017-01-09] MEDS: ESCITALOPRAM OXALATE 20 MG TAB PO SCH (08:10)
[2017-01-09] MEDS: DOCUSATE SODIUM 100 MG CAP PO SCH ×2 (08:10→20:48)
[2017-01-09] MEDS: ENALAPRIL MALEATE 10 MG TAB PO SCH (08:10)
[2017-01-09] MEDS: CYANOCOBALAMIN 2,500 MCG SUBL TAB PO SCH (08:11)
[2017-01-09] MEDS: OXYCODONE HCL IR 5 MG TAB (IMMEDIATE RELEASE) PO PRN (08:15)
[2017-01-09] MEDS ORDERED: ATORVASTATIN 40 MG TAB PO SCH (09:00)
[2017-01-09] MEDS ORDERED: CITALOPRAM 20 MG TAB PO SCH (09:00)
[2017-01-09] MEDS: MoRPHine SULFATE 2 MG/ML CARP IV PRN ×2 (09:13→19:21)
--- NOTE | 2017-01-09 09:27 | Neurology Consultation ---
Neurology Consultation Date of Consultation: Jan 09, 2017. Attending Physician: Dominick Smith MD Primary Care Physician: Addy Dewitt M.D. Reason for Consultation: Seizure? History of Present Illness Source: patient, hospital records The patient is a 66-year-old male who [facility] an unwitnessed fall that occurred at home yesterday morning while he was walking up the steps. He has a history of insulin-dependent diabetes mellitus for many years and had not eaten breakfast prior to the fall. He was carrying a watermelon at the time and may have fallen awkwardly as he fractured his sternum and several ribs. The patient is actually amnestic for the fall but recalls awakening on the floor. He states that he had difficulty getting up on his own mostly due to pain. 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 He has a history of recurrent falls and reports that he often has difficulty standing up afterwards. The patient also indicates that he consumed part of the broken watermelon while he was lying on the floor. He does not have a known history of seizure disorder or epilepsy either personally or in any immediate family member. He has experienced episodes of hypoglycemia in the past characterized by dizziness and other presyncopal symptoms. A blood glucose obtained this morning was 32. Past Medical/Surgical History Medical Problems: (1) Accidental medication overdose Status: Acute (2) Chest wall hematoma Status: Acute (3) Chest wall pain Status: Acute (4) Diabetes Status: Chronic (5) Fracture of manubrium Status: Acute (6) Hyperlipidemia Nec/Nos Status: Chronic (7) Hypertension Nos Status: Chronic (8) Hypothyroidism Nos Status: Chronic (9) Multiple fractures of ribs of right side Status: Acute Family History Patient denies a family history of epilepsy or seizure disorder Social History Smokeless Tobacco Use: No Alcohol Use: none Drug Use: none Marital Status: Housing Status: lives with significant other Occupation Status: employed, retired Allergies Coded Allergies: Iodinated Diagnostic Agents (Verified Allergy, Unknown, PT UNSURE OF EXACT RXN BUT HAD ISSUE DURING TEST, 10/02/16) Iodine (Verified Allergy, Unknown, TOPICAL REDNESS AND EDEMA, 10/02/16) Current Inpatient Medications Current Inpatient Medications Medications (Trade) Dose Ordered Sig/Victor Manuel Route Start Time Stop Time Status Last Admin Dose Admin Atorvastatin Calcium (Lipitor Tab) 40 mg QAM PO 01/09/17 09:00 02/08/17 08:59 Future Hold Citalopram Hydrobromide (celeXA TAB) 20 mg QAM PO 01/09/17 09:00 02/08/17 08:59 01/09/17 08:11 20 MG Escitalopram Oxalate (Lexapro Tab) 20 mg DAILY PO 01/09/17 09:00 02/08/17 08:59 01/09/17 08:10 20 MG Insulin Glargine (Lantus Solostar Pen) 32 units QPM SQ 01/08/17 21:00 02/07/17 20:59 01/08/17 21:38 32 UNITS Levothyroxine Sodium (Synthroid Tab) 150 mcg DAILYBB PO 01/09/17 06:30 02/08/17 06:59 01/09/17 06:09 150 MCG Cyanocobalamin (Vitamin B-12 Tab) 2,500 mcg QAM PO 01/09/17 09:00 02/08/17 08:59 01/09/17 08:11 2,500 MCG Enalapril Maleate (Vasotec Tab) 20 mg QAM PO 01/09/17 09:00 02/08/17 08:59 01/09/17 08:10 20 MG Insulin Aspart (novoLOG ASPART) SLIDING SCALE G... ACHS SC 01/08/17 21:00 02/07/17 20:59 01/08/17 21:38 3 UNITS Morphine Sulfate (MoRPHine SULFATE INJ) 2 mg Q3H PRN IV 01/08/17 16:30 01/22/17 16:29 01/08/17 17:27 2 MG Acetaminophen 1000 mg/Empty Bag 100 ml @ 400 mls/hr Q8H IV 01/08/17 19:00 02/07/17 16:29 01/09/17 03:01 400 MLS/HR Oxycodone HCl (Roxicodone Immediate Rel Tab) 5 mg Q6H PRN PO 01/08/17 16:30 01/22/17 16:29 01/09/17 08:15 5 MG Ketorolac Tromethamine (Toradol Inj) 15 mg Q6H PRN IV 01/08/17 16:30 01/13/17 16:29 Enoxaparin Sodium (Lovenox Inj) 30 mg Q24H SC 01/08/17 21:00 02/07/17 20:59 01/08/17 21:37 30 MG Ondansetron HCl (Zofran Inj) 4 mg Q6H PRN IV 01/08/17 16:30 02/07/17 16:29 01/08/17 17:27 4 MG Polyethylene (Miralax Powder Packet) 17 gm DAILY PRN PO 01/08/17 16:30 02/07/17 16:29 Docusate Sodium (coLACE CAP) 100 mg BID PO 01/08/17 21:00 02/07/17 20:59 01/09/17 08:10 100 MG Glucose (Glucose 40% Gel) 15-30 GRAMS 15 GRAMS... UD PRN PO 01/08/17 17:00 02/07/17 16:59 Glucose (Glucose Chew Tab) 4-8 Tablets 4 Tabl... UD PRN PO 01/08/17 17:00 02/07/17 16:59 Dextrose (Dextrose 50% 50ML Syringe) 25-50ML OF 50% DW IV FOR... UD PRN IV 01/08/17 17:00 02/07/17 16:59 Glucagon (Glucagon Inj) 1 mg UD PRN SQ 01/08/17 17:00 02/07/17 16:59 Miscellaneous (Iv Fluids Completed) 1 ea PRN PRN N/A 01/08/17 21:30 01/08/18 21:29 Sodium Chloride 1,000 ml @ 125 mls/hr Q8H IV 01/09/17 03:30 02/08/17 03:29 01/09/17 04:02 125 MLS/HR Review of Systems Constitutional: No fever or chills Eyes: No vision loss or diplopia ENT: No vertigo or hearing loss Neurological: As per history of present illness. Patient also complains of chronic numbness of the feet. Musculoskeletal: Patient complains of chest wall pain and low back pain A full 10 point review of systems was obtained in this patient with pertinent positives and negatives described in the history of present illness and otherwise listed above. All remaining systems reviewed and are negative Physical Exam Vital Signs (Past 24 Hrs): Date Time Temp Pulse Resp B/P (MAP) Pulse Ox O2 Delivery O2 Flow Rate FiO2 01/09/17 07:55 36.6 90 18 148/78 (101) 92 Room Air 01/09/17 04:04 36.8 74 18 145/69 (94) 98 Room Air 01/09/17 04:00 Room Air 01/09/17 00:00 Room Air 01/08/17 23:43 36.9 68 20 122/67 (85) 95 Room Air 01/08/17 20:30 96 Room Air 01/08/17 20:30 Room Air 01/08/17 19:13 36.9 89 18 149/79 97 Room Air 01/08/17 19:01 36.9 89 18 149/79 (102) 97 Room Air 01/08/17 18:12 91 20 139/84 97 01/08/17 17:21 91 20 139/84 Room Air 94 01/08/17 16:48 93 16 168/80 97 Room Air 01/08/17 14:50 88 18 152/80 96 Room Air 01/08/17 13:22 96 Room Air 01/08/17 13:22 96 Room Air 01/08/17 13:22 36.9 85 16 169/82 96 Room Air 01/08/17 13:13 93 The patient is an obese elderly male. He is lying comfortably in bed, no acute distress. The patient is alert and oriented to person place and time area recent and remote memory intact. Attention and concentration normal. Exhibits a normal spontaneous speech pattern as well as an age-appropriate fund of knowledge and normal vocabulary. Visual vines full to confrontation. Visual acuity normal. Pupils equal round reactive to light and accommodation. Eye movements normal. No nystagmus. Facial sensation intact. There is normal facial symmetry and strength. Hearing intact to finger rub bilaterally. Palate elevates to midline. Shoulder shrug strength intact bilaterally. Tongue protrudes to midline. Sensory examination reveals a rather profound length dependent deficits all modalities including vibration, proprioception, light touch, and temperature. Deep tendon reflexes are diffusely diminished. Plantar responses are silent. There is no dysmetria with finger to nose or heel to zamudio. Ophthalmoscopic examination reveals normal-appearing optic disks and posterior segments. No papilledema or hemorrhages. Carotid pulses normal bilaterally, no bruits to auscultation. Gait and station are ataxic. Patient exhibits normal muscle strength and tone for the arms and legs bilaterally. There is no atrophy. No abnormal movements observed. Laboratory Results Past 24 Hours: 01/09/17 06:05 Red Blood Count 4.14, Mean Corpuscular Volume 88.4, Mean Corpuscular Hemoglobin 28.5, Mean Corpuscular Hemoglobin Concent 32.2, Mean Platelet Volume 9.5, Neutrophils (%) (Auto) 52.8, Lymphocytes (%) (Auto) 30.0, Monocytes (%) (Auto) 12.4, Eosinophils (%) (Auto) 4.4, Basophils (%) (Auto) 0.2, Neutrophils # (Auto ) 3.40, Lymphocytes # (Auto) 1.93, Monocytes # (Auto) 0.80, Eosinophils # (Auto ) 0.28, Basophils # (Auto) 0.01 01/09/17 06:05 Test 01/08/17 13:40 01/08/17 13:47 01/08/17 13:48 01/08/17 14:52 Prothrombin Time 10.0 SECONDS (9.0-12.0) Prothromb Time International Ratio 0.9 (0.9-1.1) Activated Partial Thromboplast Time 24.0 SECONDS (21.0-31.0) Partial Thromboplastin Ratio 0.9 Total Bilirubin 0.5 mg/dl (0.2-1) Direct Bilirubin 0.2 mg/dl (0-0.2) Aspartate Amino Transf (AST/SGOT) 31 U/L (15-37) Alanine Aminotransferase (ALT/SGPT) 31 U/L (12-78) Alkaline Phosphatase 101 U/L (45-117) Total Protein 6.2 gm/dl (6.4-8.2) Albumin 3.4 gm/dl (3.4-5.0) Bedside Troponin I < 0.030 ng/ml (0-0.045) Bedside Lactic Acid Venous 1.46 mmol/L (0.90-1.70) Venous Blood pH 7.35 (7.36-7.41) Venous Blood Partial Pressure CO2 48 mmHg (38.0-50.0) Venous Blood Partial Pressure O2 27 mmHg Venous Blood HCO3 26 mmol/L Venous Blood Oxygen Saturation < 60.0 % Venous Blood Base Excess 0.2 mEq/L Test 01/08/17 16:42 01/09/17 01:51 01/09/17 06:05 01/09/17 07:53 Urine Color YELLOW Urine Appearance CLEAR (CLEAR) Urine pH 5.5 (4.5-7.5) Urine Specific [place] 1.020 (1.000-1.030) Urine Protein TRACE (NEG) Urine Glucose (UA) NEG (NEG) Urine Ketones 2+ (NEG) Urine Occult Blood NEG (NEG) Urine Nitrite NEG (NEG) Urine Bilirubin NEG (NEG) Urine Urobilinogen NEG (NEG) Urine Leukocyte Esterase NEG (NEG) Urine WBC (Auto) 1-5 /hpf (0-5) Urine RBC (Auto) 0-4 /hpf (0-4) Urine Hyaline Casts (Auto) 1-5 /lpf (0-5) Urine Epithelial Cells (Auto) 5-10 /lpf (0-5) Urine Bacteria (Auto) NEG (NEG) Total Creatine Kinase 1246 U/L (39-308) Creatine Kinase MB 8.4 ng/ml (0.5-3.6) Creatine Kinase MB Ratio 0.7 (0-3.0) Troponin I 0.018 ng/ml (0-0.045) White Blood Count 6.43 K/uL (4.8-10.8) Red Blood Count 4.14 M/uL (4.7-6.1) Hemoglobin 11.8 g/dL (14.0-18.0) Hematocrit 36.6 % (42-52) Mean Corpuscular Volume 88.4 fL (80-100) Mean Corpuscular Hemoglobin 28.5 pg (25-34) Mean Corpuscular Hemoglobin Concent 32.2 g/dl (32-36) Platelet Count 167 K/uL (130-400) Mean Platelet Volume 9.5 fL (7.4-10.4) Neutrophils (%) (Auto) 52.8 % Lymphocytes (%) (Auto) 30.0 % Monocytes (%) (Auto) 12.4 % Eosinophils (%) (Auto) 4.4 % Basophils (%) (Auto) 0.2 % Neutrophils # (Auto) 3.40 K/uL (1.4-6.5) Lymphocytes # (Auto) 1.93 K/uL (1.2-3.4) Monocytes # (Auto) 0.80 K/uL (0.11-0.59) Eosinophils # (Auto) 0.28 K/uL (0-0.5) Basophils # (Auto) 0.01 K/uL (0-0.2) RDW Standard Deviation 46.3 fL (36.4-46.3) RDW Coefficient of Variation 14.2 % (11.5-14.5) Immature Granulocyte % (Auto) 0.2 % Immature Granulocyte # (Auto) 0.01 K/uL (0.00-0.02) Anion Gap 4.0 mmol/L (3-11) Est Creatinine Clear Calc Drug Dose 89.7 ml/min Estimated GFR () 102.3 Estimated GFR (Non- 88.3 BUN/Creatinine Ratio 19.9 (10-20) Calcium Level 8.3 mg/dl (8.5-10.1) Bedside Glucose 94 mg/dl (70-99) Imaging I reviewed the images and radiologist's interpretation of the CT of the head completed upon presentation. There is no evidence of hemorrhage or other acute process. No significant abnormalities observed. A carotid duplex is unremarkable as well. An ECG reveals a normal sinus rhythm 89 bpm. Impression This is a 66-year-old male with a history of insulin-dependent diabetes mellitus who had an unwitnessed fall on the steps at home yesterday morning. He sustained fractures to several ribs and the sternum as a consequence of this fall. It is notable that he had eaten some watermelon that he had dropped after awakening on the floor potentially masking some hypoglycemia that I think was likely a factor. His blood glucose this morning was 30 and he may have had a similarly low blood glucose yesterday morning. Thus, I suspect this patient suffered a fall and associated loss of consciousness as a result of hypoglycemia rather than a seizure as questioned. Of course, the event was unwitnessed. One could also postulated as to whether or not this patient could have a significant cardiac arrhythmia that may predispose to loss of consciousness. There is no evidence of stroke or head injury at this time. 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 Plan I do not believe additional neurological testing is required at this time. This patient will need to optimize his blood glucose control to avoid episodes of significant hypoglycemia. He follows regularly with endocrinology and she should continue to do so. I do not have a specific treatment for his sensory ataxia related to diabetic peripheral neuropathy although he may benefit some PT for gait and balance. I've no further recommendations at this time. Please contact me if I may be of further assistance.
[2017-01-09 11:00] VITALS: BP 158/67; PULSE 76; TEMP 36.5; O2SAT 96
[2017-01-09 15:52] VITALS: BP 141/72; PULSE 72; TEMP 36.8; O2SAT 93
[2017-01-09] MEDS ORDERED: PHARMACY GLYCEMIC MGMT CONSULT PRN ×2 (16:15→16:38)
--- NOTE | 2017-01-09 16:40 | Pharmacy Progress Note ---
Glycemic Control Intl Consult Date of Service Jan 09, 2017. Scope Glycemic Pharmacist consulted by Dr Ambrocio on 01/10/17 for glycemic control and to write orders per [facility] inpatient glycemic control protocol Objective Weight (Kilograms): 98.200 Accuchecks BSG (last 24hrs): Test 01/08/17 19:04 01/08/17 21:34 01/09/17 06:05 01/09/17 07:08 Bedside Glucose 146 mg/dl (70-99) 202 mg/dl (70-99) 40 mg/dl (70-99) Random Glucose 32 mg/dl (70-99) Test 01/09/17 07:53 01/09/17 11:43 Bedside Glucose 94 mg/dl (70-99) 135 mg/dl (70-99) Laboratory Data (last 24hrs) Test 01/09/17 06:05 Anion Gap 4.0 mmol/L BUN/Creatinine Ratio 19.9 Blood Urea Nitrogen 18 mg/dl Creatinine 0.88 mg/dl Potassium Level 4.0 mmol/L Sodium Level 144 mmol/L White Blood Count 6.43 K/uL Red Blood Count 4.14 M/uL Hemoglobin 11.8 g/dL Hematocrit 36.6 % Mean Corpuscular Volume 88.4 fL Mean Corpuscular Hemoglobin 28.5 pg Mean Corpuscular Hemoglobin Concent 32.2 g/dl Platelet Count 167 K/uL Mean Platelet Volume 9.5 fL Neutrophils (%) (Auto) 52.8 % Lymphocytes (%) (Auto) 30.0 % Monocytes (%) (Auto) 12.4 % Eosinophils (%) (Auto) 4.4 % Basophils (%) (Auto) 0.2 % Neutrophils # (Auto) 3.40 K/uL Lymphocytes # (Auto) 1.93 K/uL Monocytes # (Auto) 0.80 K/uL Eosinophils # (Auto) 0.28 K/uL Basophils # (Auto) 0.01 K/uL Recent Pertinent Medications Outpatient Anti-diabetic Regimen: * Lantus 30 units qpm, Humalog sliding scale 35-50 units/day, Metformin ER 1000 mg w/supper * A1c = 7.3 % 04/16/16 (repeat pending 01/10/17 The patient is currently receiving: * Basal insulin: Lantus 32 units every pm * Correctional Insulin: Novolog Correction per scale ACHS Goal Range: Low 120 mg/dL - High 150 mg/dL Correction Factor: 25 mg/dL/unit * Prandial insulin: Per carb ratio of 1 unit per 20 grams CHO consumed * Oral Agents: none Risk Factors for Insulin Resistance: * Steroids: no * Infection: no * Pressors: no * IVF: NS @ 125 ml/hr * Recent Surgery: no * Diet: type 2 diabetic * Mechanical Ventilation: no Assessment & Plan ASSESSMENT: * ADA & AACE recommend a goal blood sugar range 140-180 mg/dl for the majority of critically ill & non-critically ill patients. However, more stringent targets may be selected in individual cases. * 66 yo type 1 diabetic with history of hypoglycemic episodes. Per [facility] records, A1c goal is 7.8% (higher to decrease risk of hypoglycemia). Admitted S/ P fall. Hypoglycemic this am following slightly higher than home dose of Lantus (resolved with orange juice). Will decrease Lantus ,tighten carb ratio, and check BSG overnight. Will reassess in am. PLAN FOR INPATIENT GLYCEMIC CONTROL: * Decreasing Lantus to 24 units SQ qpm * Continuing correction factor 25 mg/dl/unit * Changing carb ratio to 1 unit per 8 grams CHO consumed * Continuing goal range Low 120 mg/dL - High 150 mg/dL * Please note that the plan above was derived based on current level of insulin resistance and hospital stress. These recommendations are appropriate for inpatient admission only. Plan of care upon discharge will need to be reassessed to avoid potential outpatient hypo/hyperglycemia. Thank you.
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
--- NOTE | 2017-01-09 19:58 | SURGERY PROGRESS NOTE ---
DATE: 01/09/2017 Mr. Yoder was seen today. A chest x-ray was obtained and he is having bit more pain than he did yesterday. We are giving him narcotics. We are also giving stool softeners. Chest x-ray showed no evidence of pleural effusion, no contusions and he is still on room air with excellent saturations, although there was a questionable hematoma under both first ribs. Quite frankly, clinically, I do not believe this patient has first rib fracture, but I believe he does have manubrial fracture. He is in a bit more pain. We are going to watch him for another day given all of his comorbidities. It is important to note the fact that this patient has a manubrial fracture, possibly first rib fractures which connotes a high impact injury and they can develop major problems after such injuries. NORRIS
[2017-01-09 20:00] VITALS: BP 158/71; PULSE 71; TEMP 36.9; O2SAT 96
[2017-01-09] MEDS: ENOXAPARIN 30 MG/0.3 ML SYR SC SCH (20:48)
[2017-01-09] MEDS ORDERED: INSULIN GLARGINE SOLOSTAR 100 UNITS/ML 3 ML PEN SQ SCH (21:00)
[2017-01-09 23:05] VITALS: BP 160/74; PULSE 82; TEMP 36.9; O2SAT 95
[2017-01-10] VITALS (8 sets, daily range): BP systolic 132–169; BP diastolic 68–76; PULSE 66–78; TEMP 36.8–37; O2SAT 95–97; Ht 170.2 cm; Wt 100.4 kg
[2017-01-10] MEDS ORDERED: INSULIN ASPART 100 UNITS/ML 3 ML PEN SC SCH (02:00)
[2017-01-10] MEDS: ACETAMINOPHEN IV 1,000 MG in EMPTY BAG 0 ML IV SCH (02:21)
[2017-01-10] MEDS: SODIUM CHLORIDE 0.9% 1000ML 1,000 ML IV SCH (03:39)
[2017-01-10] MEDS: LEVOTHYROXINE 150 MCG TAB PO SCH (06:12)
[2017-01-10 07:51] LABS: BASO % 0.4 %; BASO ABS # 0.02 K/uL (0-0.2); COMPLETE YES; EOS % 4.8 %; HEMATOCRIT 33.2 % (42-52); IG% 0.2 %; LYMPH ABS # 1.29 K/uL (1.2-3.4); MEAN CORPUSCULAR HGB CONC 33.7 g/dl (32-36); MONO % 9.9 %; NEUT % 59.7 %; PLATELET COUNT 161 K/uL (130-400); RED BLOOD COUNT 3.73 M/uL (4.7-6.1); WHITE BLOOD COUNT 5.16 K/uL (4.8-10.8)
[2017-01-10] MEDS: OXYCODONE HCL IR 5 MG TAB (IMMEDIATE RELEASE) PO PRN (07:56)
[2017-01-10] MEDS: DOCUSATE SODIUM 100 MG CAP PO SCH (07:57)
[2017-01-10] MEDS: ENALAPRIL MALEATE 10 MG TAB PO SCH (07:57)
[2017-01-10] MEDS: CYANOCOBALAMIN 2,500 MCG SUBL TAB PO SCH (07:57)
[2017-01-10] MEDS: ESCITALOPRAM OXALATE 20 MG TAB PO SCH (07:57)
[2017-01-10 08:16] LABS: BUN/CREATININE RATIO 15.8 (10-20); CALCIUM 8.2 mg/dl (8.5-10.1); CREATININE 0.67 mg/dl (0.60-1.40); POTASSIUM 4.3 mmol/L (3.5-5.1)
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
[2017-01-10] MEDS: INSULIN ASPART 100 UNITS/ML 3 ML PEN SC SCH ×3 (08:56→17:59)
[2017-01-10] MEDS: IBUPROFEN 200 MG TAB PO PRN ×2 (08:58→12:50)
[2017-01-10 09:29] LABS: ESTIMATED AVERAGE GLUCOSE 157 mg/dl; HA1C FLAG Normal (Normal)
[2017-01-10] MEDS: OXYCODONE/ACETAMINOPHEN 5-325 TAB PO PRN ×2 (10:08→14:13)
--- NOTE | 2017-01-10 10:32 | Pharmacy Progress Note ---
Glycemic Control Progress Note Date of Service Jan 10, 2017. Scope Glycemic Pharmacist consulted for glycemic control to write orders per [facility] inpatient glycemic control protocol. Objective Accuchecks BSG (last 24hrs): Test 01/09/17 11:43 01/09/17 17:44 01/09/17 20:40 01/10/17 02:03 Bedside Glucose 135 mg/dl (70-99) 193 mg/dl (70-99) 234 mg/dl (70-99) 175 mg/dl (70-99) Test 01/10/17 06:58 01/10/17 07:34 Random Glucose 168 mg/dl (70-99) Bedside Glucose 156 mg/dl (70-99) HbA1c: Test 01/10/17 06:58 Hemoglobin A1c 7.1 % (4.5-5.6) H Recent Pertinent Medications The patient is currently receiving: * Basal insulin: Lantus 24 units every 24 hours - just decreased last night * Correctional Insulin: Novolog Correction per scale ACHS Goal Range: Low 120 mg/dL - High 150 mg/dL Correction Factor: 25 mg/dL/unit * Prandial insulin: Per carb ratio of 1 unit per 8 grams CHO consumed * Oral Agents: None at this time Outpatient Anti-Diabetic Meds * Lantus 30 units qpm, Humalog sliding scale 35-50 units/day, Metformin ER 1000 mg w/supper * A1c = 7.3 % 04/16/16 (repeat pending 01/10/17 Assessment & Plan ASSESSMENT: * See progress note from 01/09 for more background info, in short: * Pt receiving SQ basal bolus insulin regimen for hyperglycemia secondary to baseline DM (outpatient regimen on hold) * Patient is currently receiving an average of 40 units of insulin per day * 24 units of basal insulin * BSGs ranging 135 - 234 mg/dl over the past 24hrs * Changes needed to insulin regimen: * AM Fasting BSG = 156 mg/dl. This is improved significantly from yesterday so will continue same basal dose. May need to increase slightly if fasting continues to increase but hesitant to do so with recent episode of severe hypoglycemia * Post-prandial BSGs are somewhat elevated but CR was just tightened last evening so I would like to see how this does today prior to making any changes. PLAN FOR INPATIENT GLYCEMIC CONTROL: * Continue Lantus 24 units SQ qHS * Continue correction factor of 25 mg/dl/unit * Continue carb ratio of 1 unit per 8 grams CHO consumed * Continue goal range of Low 120 mg/dL - High 150 mg/dL RECOMMENDATIONS FOR DISCHARGE: * A1c acceptable but slightly below goal of 7.8%, as per outpatient provider. Also, patient having lows at home and may have had one that contributed to this admission. * Would recommend decreasing Lantus to 27 units qHS * Continue Humalog * Continue metformin * Continue to follow-up with outpatient endo office for adjustment of insulin Thank you.
[2017-01-10] MEDS ORDERED: PERFLUTREN LIPID MICROSPHERE (DEFINITY) IV ONE (13:05)
--- NOTE | 2017-01-10 15:21 | Hospitalist Progress Note ---
Hospitalist Progress Note Date of Service Jan 10, 2017. Subjective Pt evaluation today including: conversation w/ patient Pt feeling much better this afternoon. Pain controlled with po meds. He is getting his IS all the way up to the top consistently. He denies any other problems. Glucose readings much improved today. He was recommended for inpt rehab but he really wants to go home All Other Systems: Reviewed and Negative Objective Vital Signs Date Time Temp Pulse Resp B/P (MAP) Pulse Ox O2 Delivery O2 Flow Rate FiO2 01/10/17 12:00 96 Room Air 01/10/17 08:00 96 Room Air 01/10/17 07:42 36.8 78 16 169/76 (107) 96 Room Air 01/10/17 04:00 Room Air 01/10/17 03:11 37.0 76 20 146/70 (95) 95 Room Air 01/10/17 00:00 Room Air 01/09/17 23:05 36.9 82 20 160/74 (102) 95 Room Air 01/09/17 20:00 36.9 71 18 158/71 (100) 96 Room Air 01/09/17 20:00 Room Air 01/09/17 16:00 Room Air 01/09/17 15:52 36.8 72 18 141/72 (95) 93 Room Air Physical Exam General Appearance: WD/WN, no apparent distress Eyes: normal inspection, sclerae normal ENT: hearing grossly normal Neck: trachea midline Respiratory/Chest: lungs clear, normal breath sounds, no respiratory distress, no accessory muscle use Cardiovascular: regular rate, rhythm, no gallop, no murmur, + pertinent finding (trace pitting edema legs bilat) Abdomen: normal bowel sounds, non tender, soft Extremities: non-tender, no pedal edema Neurologic/Psychiatric: alert, normal mood/affect Skin: normal color, warm/dry, no rash Laboratory Results Last 24 Hours Test 01/09/17 17:44 01/09/17 20:40 01/10/17 02:03 01/10/17 06:58 Bedside Glucose 193 mg/dl 234 mg/dl 175 mg/dl White Blood Count 5.16 K/uL Red Blood Count 3.73 M/uL Hemoglobin 11.2 g/dL Hematocrit 33.2 % Mean Corpuscular Volume 89.0 fL Mean Corpuscular Hemoglobin 30.0 pg Mean Corpuscular Hemoglobin Concent 33.7 g/dl Platelet Count 161 K/uL Mean Platelet Volume 10.0 fL Neutrophils (%) (Auto) 59.7 % Lymphocytes (%) (Auto) 25.0 % Monocytes (%) (Auto) 9.9 % Eosinophils (%) (Auto) 4.8 % Basophils (%) (Auto) 0.4 % Neutrophils # (Auto) 3.08 K/uL Lymphocytes # (Auto) 1.29 K/uL Monocytes # (Auto) 0.51 K/uL Eosinophils # (Auto) 0.25 K/uL Basophils # (Auto) 0.02 K/uL RDW Standard Deviation 45.9 fL RDW Coefficient of Variation 14.0 % Immature Granulocyte % (Auto) 0.2 % Immature Granulocyte # (Auto) 0.01 K/uL Sodium Level 142 mmol/L Potassium Level 4.3 mmol/L Chloride Level 111 mmol/L Carbon Dioxide Level 29 mmol/L Anion Gap 2.0 mmol/L Blood Urea Nitrogen 11 mg/dl Creatinine 0.67 mg/dl Est Creatinine Clear Calc Drug Dose 119.1 ml/min Estimated GFR () 114.4 Estimated GFR (Non- 98.7 BUN/Creatinine Ratio 15.8 Random Glucose 168 mg/dl Estimated Average Glucose 157 mg/dl Hemoglobin A1c 7.1 % Calcium Level 8.2 mg/dl Total Creatine Kinase 823 U/L Test 01/10/17 07:34 01/10/17 11:58 Bedside Glucose 156 mg/dl 216 mg/dl Assessment and Plan This is a 66 yo M with PMHx of DM type 1 on insulin, retinopathy with legal blindness, frequent hypoglycemic episodes with unawareness, 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 Syncope vs severe hypoglycemia causing fall suffering Multiple Rib fractures and manubrium fracture-most likely secondary to hypoglycemic episode. Glucose check in EMS was 160 but he had eaten watermelon prior to having it checked. No h/o syncope or cardiac issues - Thoracic medicine as the primary team - CT chest reviewed showing nondisplaced upper manubrial fractures, displaced bilateral anterior 1st rib fractures, R posterior 2-5th rib fx, small retromanubrial hemorrhage, pleural/extrapleural hemorrhage in the R lung apex, and a 2 subcentimeter pulmonary nodule -repeat CRX improved today with less density at apices/resolving hemorrhage -no events on tele - Analgesia per the primary team-oxycodone, advil -DVT prophylaxis -IS encouraged -PT/OT bhanu recommending acute rehab but pt prefers to go home -advised moving bedroom (his recliner chair) to the main floor to avoid going up and down stairs as much -check ECHO for structural cardiac disease-awaiting result but if nothing significantly abnormal, fine for discharge Mild traumatic rhabdomyolysis from fall-CK stable at 2292-2018 down to 600 -stop IVFs -holding statin but can restart on dc DM Type I on insulin, retinopathy with legal blindness, frequent hypoglycemic episodes with unawareness, 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 Has not seen Endocrine since last Mar 2016. Glucose 32 on AM labs the day after admission and pt was asymptomatic. Lantus dose lowered to 24 units and glucose much improved today. HgbA1C 7.1% which is too low for him. - continue lower dose of Lantus at 24 units - Holding metformin due to recent IV contrast but can restart on dc - ISS with accuchecks -needs to f/u with Endo shortly after discharge Pulm nodule- seen on CT chest 4mm x two nodules -recommend repeat CT CHest in 12 months as he is a nonsmoker Depression-stable - major depressive disorder, recurrent - Continue on Lexapro 20 mg daily: The patient had been taking his old prescription of Celexa 20 mg and Lexapro 20 mg since his mother's last Saturday because of his excessive crying episodes. -Celexa was meant to be discontinued yesterday as he does not need 2 SSRIs--> dc Celexa today - He does not see a counselor, so would recommend this as an outpatient HTN-stable - Continue ramipril 5 mg daily HLD-stable - Cont statin therapy after rhabdo resolved Hypothyroidism-no recent TSH - Continue levothyroxine 150 mcg daily -check TSH in AM Neutraceuticals - Continue MVI, Vit B 12 and Vit D as per [employer] meds DVT ppx: Teds, scds, Lovenox CODE STATUS: FULL CODE Disposition: to home today
[2017-01-10] MEDS ORDERED: OXYC-57 PO (15:31)
[2017-01-10] MEDS ORDERED: INSDGIPEN SQ (15:31)
--- NOTE | 2017-01-10 15:35 | Discharge Instructions ---
Discharge Instructions Date of Service Jan 10, 2017. Admission Reason for Admission: FALL Discharge Discharge Diagnosis / Problem: Fracture Discharge Goals Goal(s): Decrease discomfort Activity Recommendations Activity Limitations: as noted below Lifting Limitations: gradually increase as tolerated Exercise/Sports Limitations: gradually increase as tolerated May Resume Sexual Activity: when tolerated Shower/Bathe: no limitations Driving or Machine Use: no driving for other reasons . Instructions / Follow-Up Instructions / Follow-Up My office will call for appointment and will set up chest xray. Current Hospital Diet Patient's current hospital diet: Diabetes Type 2 Diet Discharge Diet Recommended Diet: Diabetes Type 2 Diet Pending Studies Studies pending at discharge: no Laboratory Results Hemoglobin A1c Test 01/10/17 06:58 Range/Units Estimated Average Glucose 157 mg/dl Hemoglobin A1c 7.1 H 4.5-5.6 % Medical Emergencies . Who to Call and When: Medical Emergencies: If at any time you feel your situation is an emergency, please call 911 immediately. . Non-Emergent Contact Non-Emergency issues call your: Primary Care Provider . . "Provider Documentation" section prepared by Dominick Smith. . VTE Core Measure Inpt VTE Proph given/why not?: Enoxaparin (Lovenox)SQ
--- NOTE | 2017-01-10 18:41 | ECHOCARDIOGRAM REPORT ---
*NOTICE TO RECEIVING [employer]Y This information is strictly Confidential and protected under [place] law. [place] law prohibits you from making any further disclosure of this information unless further disclosure is expressly permitted by the written consent of the person to whom it pertains or is authorized by law. A general authorization for the release of medical or other information is not sufficient for this purpose. Hospital accepts no responsibility if the information is made available to any other person, INCLUDING THE PATIENT. Interpretation Summary * Name: MILLICENT HARVEY Study Date: 01/10/2017 11:21 AM BP: 146/70 mmHg * Patient Location: [facility]\S\N281\S\1 HR: 83 * : 1950 (M/d/yyyy) Gender: Male Height: 67 in * Age: 66 yrs Ethnicity: [place] Weight: 216 lb * Ordering Physician: Tosin Ambrocio * Referring Physician: Self, Referred * * BSA: 2.1 m2 * -- Conclusions -- * Technically difficult study. * 1. Normal LV size and wall thickness. * 2. Normal LV systolic function. LVEF 60-65%. No regional wall motion abnormalities. * 3. Normal RV size and function. * 4. No significant valvular pathology. * 5. No prior studies for comparison. Procedure Details * A contrast injection of Definity was performed to improve assessment of LV function. * Contrast was injected into an intravenous site in the left arm. * One vial of Definity ultrasound contrast was diluted in normal saline to a total volume of 10 ml. A total of '4' ml of solution was administered during imaging. * Lot # [id number] of Definity utilized for procedure. * Expiration date 1AUG18. * The attending nurse who injected the contrast agent was Rhiannon Chapa RN. Left Ventricle * The left ventricle is grossly normal size. * There is normal left ventricular wall thickness. * Ejection Fraction = 60-65%. * No regional wall motion abnormalities noted. Right Ventricle * The right ventricle is grossly normal size. * The right ventricular systolic function is normal as assessed by tricuspid annular plane systolic excursion (TAPSE) (normal >1.5 cm). Atria * The left atrial size is normal. * Right atrial size is normal. Mitral Valve * The mitral valve is grossly normal. * There is no mitral valve stenosis. * Significant mitral regurgitation is absent. Tricuspid Valve * The tricuspid valve is not well visualized. * Significant tricuspid regurgitation is absent. Aortic Valve * The aortic valve is not well visualized. * No hemodynamically significant valvular aortic stenosis. * There is no significant aortic regurgitation. Pulmonic Valve * The pulmonic valve is not well visualized. Great Vessels * The aortic root and proximal ascending aorta are normal sized. Pericardium/Pleural * There is no pericardial effusion. MMode 2D Measurements and Calculations IVSd 1.1 cm LVIDd 4.4 cm LVIDs 2.3 cm LVPWd 1.2 cm IVS/LVPW 0.93 FS 47.4 % EDV(Teich) 90.0 ml ESV(Teich) 18.9 ml EF(Teich) 79.0 % EDV(cubed) 88.1 ml ESV(cubed) 12.8 ml EF(cubed) 85.5 % LV mass(C)d 176.6 grams LV mass(C)dI 84.5 grams/m\S\2 SV(Teich) 71.1 ml SI(Teich) 34.0 ml/m\S\2 SV(cubed) 75.3 ml SI(cubed) 36.0 ml/m\S\2 Ao root diam 3.0 cm Ao root area 7.1 cm\S\2 LVOT diam 2.3 cm LVOT area 4.0 cm\S\2 LVAd ap4 22.0 cm\S\2 LVLd ap4 6.4 cm EDV(MOD-sp4) 62.2 ml EDV(sp4-el) 64.0 ml LVAs ap4 13.4 cm\S\2 LVLs ap4 5.9 cm ESV(MOD-sp4) 25.8 ml ESV(sp4-el) 25.7 ml EF(MOD-sp4) 58.4 % EF(sp4-el) 59.9 % LVAd ap2 22.4 cm\S\2 LVLd ap2 6.5 cm EDV(MOD-sp2) 64.6 ml EDV(sp2-el) 65.4 ml LVAs ap2 11.5 cm\S\2 LVLs ap2 5.6 cm ESV(MOD-sp2) 19.2 ml ESV(sp2-el) 20.2 ml EF(MOD-sp2) 70.3 % EF(sp2-el) 69.1 % LVLd %diff 1.8 % EDV(MOD-bp) 63.4 ml LVLs %diff -6.33 % ESV(MOD-bp) 22.6 ml EF(MOD-bp) 64.4 % SV(MOD-sp4) 36.4 ml SI(MOD-sp4) 17.4 ml/m\S\2 SV(MOD-sp2) 45.4 ml SI(MOD-sp2) 21.7 ml/m\S\2 SV(MOD-bp) 40.9 ml SI(MOD-bp) 19.6 ml/m\S\2 SV(sp4-el) 38.3 ml SI(sp4-el) 18.3 ml/m\S\2 SV(sp2-el) 45.2 ml SI(sp2-el) 21.6 ml/m\S\2 Doppler Measurements and Calculations MV E max cait 103.3 cm/sec MV A max cait 73.2 cm/sec MV E/A 1.4 MV dec time 0.12 sec Ao V2 max 119.4 cm/sec Ao max PG 5.7 mmHg Ao max PG (full) 1.7 mmHg TIFFANY(V,A) 3.4 cm\S\2 TIFFANY(V,D) 3.4 cm\S\2 LV V1 max PG 4.0 mmHg LV V1 max 100.4 cm/sec
[2017-01-11] MEDS ORDERED: INSULIN ASPART 100 UNITS/ML 3 ML PEN SC ONE (02:00)
--- NOTE | 2017-01-11 07:04 | DISCHARGE SUMMARY ---
DISCHARGE DIAGNOSES: Multiple fractures from blunt trauma: 1. Bilateral first rib fractures. 2. Manubrial fracture. 3. Right 2nd, 3rd, 4th and 5th rib fractures. 4. Retromanubrial hematoma. HOSPITAL COURSE: Mr. Paresh rick is a 66-year-old male who has type 1 diabetes mellitus and he is blind due to diabetic retinopathy as well as other problems with his eyes. He awoke at the bottom of the stairs and states about 6 hours before I evaluated him in the Emergency Room. He has multiple fractures as noted above. He looks fine on room air; however, I was quite concerned about him. He continued to have pain with deep breathing. I admitted him to the hospital and we followed him for a couple of days. We weaned him off of his parenteral narcotics and I was quite happy to see his x-ray had not really changed. He did become hypoglycemic with blood sugar of 32 and we did decrease his Lantus from 32-24 units. In addition, he had been on Lexapro and Celexa inadvertently and we discontinued his Celexa. He did not complain of seizures but one wonders as we did not really find a reason for his syncope. He could have been hyperglycemic also. The patient did quite well on his 3rd hospital day, he had improved and I elected to discharge him at his request. He was still on room air with excellent saturations. He was working hard on the incentive spirometer and actually walking with help. He is legally blind. We will discharge him home. I will see him back next week with a chest x-ray. I have instructed him to call me should any problems arise.
--- NOTE | 2017-01-11 08:35 | HISTORY & PHYSICAL EXAMINATION ---
DATE OF ADMISSION: 01/08/2017 CHIEF COMPLAINT: "I fell." HISTORY OF PRESENT ILLNESS: This is a 66-year-old male we are asked to evaluate in the Emergency Department following a fall, suffering a manubrial fracture. I visited with the patient in the Emergency Department and he said approximately 09:00 a.m. this morning, he fell while going up the steps. He could not provide any specific details. He did note, however, that he did not have any chest pain, shortness breath, nausea, or vomiting prior to falling. He also does not recollect any lightheadedness prior to falling. He says that he merely woke up at the bottom of the stairs after suffering an apparent fall. He is unsure if he lost consciousness. He is unsure if he hit his head and he is unsure what part of his body he landed on. At the time of my exam, he is only complaining of some pain at the top of his sternum that appeared to be worse with palpation and with deep inspirations. Concerning other symptomatology, the patient says that he has not had any recent falls or head injuries prior to today's episode. He says that he is legally blind. He denies any tinnitus, vertigo, epistaxis, or sore throat. He denies any neck pain. He does note some manubrial pain, but does not note any other substernal chest pain or pleurisy. He denies shortness of breath. He has no recent fevers, shakes or chills or other illnesses. He denies any nausea, vomiting, diarrhea or weight loss. He denies dysuria. The patient denies any myalgias. He has no history of stroke, seizure, migraine headache, anxiety, depression, DVT, or PE. In the Emergency Department, the patient had labs, where a chemistry profile showed sodium, potassium, BUN and creatinine were all normal. Cardiac enzymes were not elevated. CBC showed hemoglobin and hematocrit of 12.4 and 35.8. White blood cell count and platelet count are normal. Coagulation studies are normal. The patient had bilateral tib-fib x-rays that did not reveal any fractures. A pelvic x-ray was negative for fractures and a head CT was negative for acute intracranial pathology. The patient had a CT scan of his chest that did note nondisplaced manubrial fractures bilaterally near the articulation of the first ribs with a small amount of retromanubrial hemorrhage. There is no evidence of pneumothorax. Only trace pericardial fluid was noted. The patient was noted to have fractures in a nondisplaced fashion of the right anterior 2nd and 3rd ribs at the costochondral junctions. The patient was also noted to have 2 nodules noted in his lungs with the large measuring 4 mm. In addition, as noted above, the patient had an EKG that showed sinus rhythm without any evidence of heart block or ischemic changes. PAST MEDICAL HISTORY: Includes, 1. Diabetes. 2. Hypertension. 3. Hyperlipidemia. PAST SURGICAL HISTORY: Includes teeth extractions. ALLERGIES: IV CONTRAST AND IODINE. OUTPATIENT MEDICATIONS: Include the followin. Lipitor 40 mg daily. 2. Celexa 20 mg daily. 3. Vitamin B12 at 2500 mcg daily. 4. Lexapro 20 mg daily. 5. [place] 5/325 one tab every 4 hours as needed. 6. Lantus 32 units in the evening. 7. Humalog sliding scale insulin. 8. Levothyroxine 150 mcg daily. 9. Glucophage 1000 mg daily. 10. Ramipril 5 mg daily. SOCIAL HISTORY: The patient smoked for about 10 years, less than 1 pack of cigarettes per day, quit at age 48. FAMILY HISTORY: Positive for diabetes. REVIEW OF SYSTEMS: See above. PHYSICAL EXAMINATION: VITAL SIGNS: The patient is afebrile with temperature 36.9, pulse 80 and regular, respirations are 18 and unlabored, blood pressure 152/80, and pulse ox 96% on room air. SKIN: Warm with good turgor. GENERAL: He is alert and he is oriented x3, in no distress. HEENT: Head is atraumatic and normocephalic. There is no sign of mei signs or raccoon eyes. EYES: Pupils equal, round and reactive to light and accommodation. Extraocular motions are intact. EARS: Auditory acuity is grossly intact. There is no hemotympanum. NOSE: Nasal patency is intact. Sinuses are nontender. There is no epistaxis. MOUTH: Moist without exudates. His jaw and teeth appear to be in good alignment. NECK: Supple without tracheal shift or JVD. He has no cervical tenderness with palpation. CARDIOVASCULAR: Regular rate and rhythm with no rubs. LUNGS: Clear to auscultation. CHEST: Chest wall was examined. He did have some pain with palpation of the manubrium. There is no crepitus in the soft tissue. There is no bruising. ABDOMEN: Soft, nontender, and nondistended. There is no pain with palpation in all quadrants. There is no bruising. EXTREMITIES: Revealed no cyanosis or clubbing. The patient did have palpable radial and DP pulses bilaterally. NEUROLOGIC: Revealed cranial nerves II through XII are grossly intact. No focal deficits are noted. DIAGNOSTIC DATA: As noted above. IMPRESSION: A 66-year-old man with a fall with the above noted injuries. PLAN: It is unsure if the patient had a syncopal episode. The hospitalist will be consulted for medical management and we will place the patient on telemetry. We will trend his cardiac enzymes and EKGs and also get a carotid ultrasound to evaluate for potential syncope. Concerning the patient's fractures noted above, the mainstay of this will be incentive spirometry, early ambulation and pain management, all which will be undertaken. Concerning his diabetes, we will maintain him on insulin as well as his dose of Lantus. We will initiate Lovenox for DVT prevention. He will be a level 1 full code. In addition , we will also repeat labs in the morning to ensure stability. Finally, because of his fall, we will get PT and OT evaluations in help of discharge planning to help a safe disposition. The patient was evaluated at the bedside with Dr. Smith and the patient and his family at the bedside was updated and they agree with the above. NORRIS
== END 2017-01-10 19:37 | disposition home or self-care (01) | DRG 184 ==
LOC: EDBD 13:01 → C.EDC 13:02 → C.MED 16:36 → ENRESERV 16:52 → OBSVTOIN 01-09 13:46 → C.MED 01-10 11:22
PROVIDERS: ADMIT Surgery; ATTEND Surgery
DX: S22.43XA Multiple fractures of ribs, bilateral, initial encounter for closed fracture (principal); S22.21XA Fracture of manubrium, initial encounter for closed fracture; S20.211A Contusion of right front wall of thorax, initial encounter; M62.82 Rhabdomyolysis; H54.8 Legal blindness, as defined in USA; E11.40 Type 2 diabetes mellitus with diabetic neuropathy, unspecified; E78.5 Hyperlipidemia, unspecified; F32.9 Major depressive disorder, single episode, unspecified; E03.9 Hypothyroidism, unspecified; Z83.3 Family history of diabetes mellitus; E11.319 Type 2 diabetes mellitus with unspecified diabetic retinopathy without macular edema; W10.9XXA Fall (on) (from) unspecified stairs and steps, initial encounter; Y92.018 Other place in single-family (private) house as the place of occurrence of the external cause; Y93.01 Activity, walking, marching and hiking

== ENCOUNTER → 2017-01-15 | Outpatient (CLI) | payer BC ==
[~2017-01-15] MED LIST changes: -ASPITAB67 PO; -BRIN3SUS OP; +BRIN3SUS OPB; -CLX20 PO; +ESCI1TAB10 PO; +HYDR-5688 PO; +INSDGI SC; +NAPR1TAB9 PO; +OXYC-57 PO
--- NOTE | 2017-01-15 13:30 | DIAGNOSTIC IMAGING REPORT ---
CHEST 2 VIEWS ROUTINE HISTORY: Bilateral rib fractures. Bilateral chest pain. Sternal fracture. COMPARISON: Chest 01/10/2017. FINDINGS: The right apical pleural thickening has improved. Bilateral upper rib fractures are again noted. No pneumothorax. The heart is normal in size. Small right pleural effusion has progressed. There is suggestion of a trace left pleural effusion. No new focal lung consolidations. IMPRESSION: 1. Right apical pleural thickening has improved and almost completely resolved. 2. Upper rib fractures are again noted. 3. No pneumothorax. 4. Small right and trace left pleural effusions which have developed in the interval. Electronically signed by: Michael Cline M.D. 01/15/2017 1:29 PM Dictated Date/Time: 01/15/2017 1:19 PM
== END | disposition home or self-care (01) ==
LOC: C.RAD 12:44
PROVIDERS: ATTEND Surgery
DX: S22.39XA Fracture of one rib, unspecified side, initial encounter for closed fracture (principal); X58.XXXA Exposure to other specified factors, initial encounter

== ENCOUNTER → 2017-02-04 | Outpatient (CLI) | payer BC ==
--- NOTE | 2017-02-04 09:47 | DIAGNOSTIC IMAGING REPORT ---
CHEST 2 VIEWS ROUTINE CLINICAL HISTORY: Broken ribs COMPARISON STUDY: 01/15/2017 FINDINGS: The cardiac and mediastinal contours are normal. There is no focal pulmonary consolidation. There is been resolution of the previous identified pleural effusions. There is no pneumothorax. Bilateral rib fractures are again evident.[ There is a linear atelectasis the left lung base. IMPRESSION: 1. Interval resolution of the bilateral pleural effusions 2. No active disease in the chest. Electronically signed by: Masoud Figueroa M.D. 02/04/2017 9:46 AM Dictated Date/Time: 02/04/2017 9:44 AM
== END | disposition home or self-care (01) ==
LOC: C.RAD 09:18
PROVIDERS: ATTEND Physician Assistant
DX: S22.39XA Fracture of one rib, unspecified side, initial encounter for closed fracture (principal); X58.XXXA Exposure to other specified factors, initial encounter

== ENCOUNTER 2017-02-14 13:37 | Emergency (ER) | payer BC ==
[~2017-02-14] VITALS: Ht 170.2 cm; Wt 99.2 kg
[~2017-02-14 13:37] MED LIST changes: -BRIN3SUS OPB; -HYDR-5688 PO; -INSDGI SC; -MULT-190 PO; -MULT-506 PO; -NAPR1TAB9 PO
[2017-02-14 13:43] VITALS: Ht 170.2 cm; Wt 99.2 kg
[2017-02-14] MEDS ORDERED: ONDANSETRON INJ 2 MG/ML 2 ML VIAL IV STA (13:49)
[2017-02-14] MEDS ORDERED: MoRPHine SULFATE 4 MG/ML 1 ML CARP\\VIAL IV PRN (14:00)
--- NOTE | 2017-02-14 14:00 | EMERGENCY ROOM VISIT NOTE ---
History Report prepared by Qing: Timbo Jefferson Under the Supervision of: Dr. Ankit Willard M.D. First contact with patient: 13:47 Chief Complaint: SHOULDER PAIN Stated Complaint: rt arm pain History of Present Illness The patient is a 66 year old male who presents to the Emergency Room via EMS with complaints of persistent right shoulder pain that started a couple days ago. He says that the pain goes around his right shoulder blade and movement worsens the pain a lot. He adds that the pain was really bad last night. He states that he called 's office and his primary care physician's office, and was told to come here for evaluation. The patient had a fall around a month ago--he fell down the stairs while carrying a watermelon, and suffered a sternum fracture and 6 right rib fractures. He was in the hospital for 3 days , and was discharged on January 10 with pain medications. He had further x- rays on February 04, and things were improving. The patient adds that both nurses from the offices he called this morning said that his current shoulder pain is not related to the fall. He says that he has been taking Hydrocodone, Acetaminophen, and Aleve for the pain, but it has not worked since last night. He notes no history of shoulder issues. He is not on any blood thinners. Source of History: patient Onset: A few days ago Position: shoulder (right) Timing: other (persistent) Modifying Factors (Worsening): movement Associated Symptoms: + back pain (right shoulder blade) Note: No other associated symptoms noted. Review of Systems See HPI for pertinent positives & negatives. A total of 10 systems reviewed and were otherwise negative. Past Medical & Surgical Medical Problems: (1) Altered level of consciousness (2) Diabetes (3) Diabetic foot ulcer (4) Diabetic peripheral neuropathy associated with type 2 diabetes mellitus (5) Fall (6) Hyperlipidemia Nec/Nos (7) Hypertension Nos (8) Hypoglycemia (9) Hypothyroidism Nos (10) Loss of sensation Family History Cancer Diabetes mellitus Hypertension Social History Smoking Status: Former Smoker Drug Use: none Marital Status: Housing Status: lives with significant other Occupation Status: employed, retired Current/Historical Medications Scheduled Brinzolamide-Brimonidine Tartr (Simbrinza), 2 DROPS OPB DAILY Insulin Glargine (Lantus), 40 UNITS SC QPM Insulin Lispro (Human) (Humalog Kwikpen), UNITS SQ UD Levothyroxine Sodium (Levothyroxine Sodium), 1 TAB PO QAM Metformin Hcl Er (Glucophage Er), 1,000 MG PO DAILY @ EVENING MEAL Multivitamin (Multivitamin), 1 TAB PO DAILY Naproxen (Aleve), 220 MG PO DAILY Ocuvite Preservision (Ocuvite Preservision), 1 TAB PO DAILY Ramipril (Ramipril), 5 MG PO QAM Scheduled PRN Hydrocodone/Acetaminophen 5MG/325MG (Udall 5MG/325MG), 1 TABLET PO Q6 PRN for Pain Allergies Coded Allergies: Iodinated Diagnostic Agents (Verified Allergy, Unknown, PT UNSURE OF EXACT RXN BUT HAD ISSUE DURING TEST, 02/14/17) Iodine (Verified Allergy, Unknown, TOPICAL REDNESS AND EDEMA, 02/14/17) Physical Exam Vital Signs Date Time Temp Pulse Resp B/P (MAP) Pulse Ox O2 Delivery O2 Flow Rate FiO2 02/14/17 17:28 37.0 87 18 131/70 96 02/14/17 16:01 86 18 151/73 98 Room Air 02/14/17 14:07 82 18 169/80 98 Room Air 02/14/17 13:43 37.0 82 18 171/97 98 Room Air Physical Exam GENERAL: Patient is in no acute distress. HEENT: No acute trauma, normocephalic atraumatic, mucous membranes moist, no nasal congestion, no scleral icterus. NECK: No stridor, no adenopathy, no meningismus, trachea is midline. LUNGS: Clear to auscultation bilaterally, no wheeze, no rhonchi, breath sounds equal. HEART: Without murmurs gallops or rubs, regular rate and rhythm. ABDOMEN: Soft, nontender, bowel sounds positive, no hernias, no peritonitis. EXTREMITIES: Tender about entire right shoulder especially over right AC joint. No obvious dislocation to shoulder clinically. Pain worsens with shoulder movement, no contusion. NEUROLOGIC: Oriented x 3, no acute motor or sensory deficits, no focal weakness. SKIN: No rash, no jaundice, no diaphoresis. Medical Decision & Procedures ER Provider Diagnostic Interpretation: Radiology results as stated below per my review and radiologist interpretation: R SHOULDER MIN 3 VIEWS ROUTINE CLINICAL HISTORY: Right shoulder pain. Trauma. COMPARISON: None. DISCUSSION: No fractures or dislocations of the right proximal humerus are visualized. There are mild degenerative changes. There is borderline widening of the right acromial clavicular joint. This could indicate an AC joint separation. Supplemental views of the AC joints without and with weights could be obtained in follow-up as deemed clinically indicated. There are multiple old right-sided rib fractures. IMPRESSION: 1. No acute fractures 2. Multiple old right-sided rib fractures 3. Borderline widening of the AC joint. This could indicate an AC joint separation. Electronically signed by: Masoud Figueroa M.D. 02/14/2017 3:26 PM Dictated Date/Time: 02/14/2017 3:24 PM TWO VIEW CHEST CLINICAL HISTORY: Right-sided chest pain.. FINDINGS: PA and lateral chest radiographs are compared to study dated 02/04/2017. Correlation is made with chest CT dated 01/08/2017. The PA view is degraded by patient rotation. The cardiomediastinal silhouette is unremarkable. Chronic interstitial thickening similar to previous. Linear atelectasis is noted at the left lung base. No airspace consolidation is seen typical for pneumonia and there is no pleural effusion. There is no pneumothorax. The skeletal structures are osteopenic. Degenerative change is seen throughout the thoracic spine. There are healed bilateral rib fractures. IMPRESSION: No active disease in the chest. Electronically signed by: Ankit Lovell M.D. 02/14/2017 3:25 PM Dictated Date/Time: 02/14/2017 3:[address] SCAN OF THE ABDOMEN AND PELVIS WITHOUT CONTRAST CLINICAL HISTORY: Abdominal pain status post trauma. Patient allergic to contrast. COMPARISON STUDY: 2007 TECHNIQUE: CT scan of the abdomen and pelvis was performed from the lung bases to the proximal femurs. Images are reviewed in the axial, sagittal, and coronal planes. IV contrast was not administered for this examination. A dose lowering technique was utilized adhering to the principles of ALARA. CT DOSE: 898.31 mGycm FINDINGS: Lower chest: No pneumothorax is visualized. The lung bases are unremarkable. The exception of minor atelectatic change. Liver: The unenhanced liver is normal in size, contour, and attenuation. There is no intrahepatic biliary ductal dilatation. Gallbladder: Unremarkable. Spleen: Normal in size and attenuation. Pancreas: Unremarkable. Adrenal glands: Unremarkable. Kidneys: The unenhanced kidneys are normal in size without hydronephrosis. There is no contour deforming renal mass lesion. No renal calculi are identified. Bowel: There are no transition zones indicate bowel obstruction. There is no interloop fluid. There are no extraluminal gas collections. Peritoneum: There is no intraperitoneal free air or abdominal ascites. There is a small fat-containing umbilical hernia. There is minimal infiltration of the central mesentery, finding unchanged from the 2008 study. Vasculature: The abdominal aorta is normal in course and caliber. Adenopathy: There are mildly prominent central mesenteric lymph nodes, finding also similar to the preceding 2008 examination. Pelvic viscera: The bladder, and pelvic viscera are unremarkable. Skeletal structures: No destructive osseous lesions are seen. IMPRESSION: No acute intra-abdominal or pelvic findings. No evidence of acute intra-abdominal or pelvic injury given the limitations of a noncontrast study Electronically signed by: Masoud Figueroa M.D. 02/14/2017 2:40 PM Dictated Date/Time: 02/14/2017 2:37 PM Laboratory Results 02/14/17 14:05 02/14/17 14:05 Test 02/14/17 14:05 Red Blood Count 3.99 M/uL (4.7-6.1) Mean Corpuscular Volume 90.0 fL (80-100) Mean Corpuscular Hemoglobin 29.1 pg (25-34) Mean Corpuscular Hemoglobin Concent 32.3 g/dl (32-36) RDW Standard Deviation 46.2 fL (36.4-46.3) RDW Coefficient of Variation 14.0 % (11.5-14.5) Mean Platelet Volume 9.8 fL (7.4-10.4) Anion Gap 9.0 mmol/L (3-11) Est Creatinine Clear Calc Drug Dose 107.2 ml/min Estimated GFR () 109.8 Estimated GFR (Non- 94.8 BUN/Creatinine Ratio 22.7 (10-20) Calcium Level 9.1 mg/dl (8.5-10.1) Troponin I < 0.015 ng/ml (0-0.045) Laboratory results reviewed by me. Medications Administered Medications (Trade) Dose Ordered Sig/Victor Manuel Route Start Time Stop Time Status Last Admin Dose Admin Morphine Sulfate (MoRPHine SULFATE INJ) 4 mg Q15M PRN IV 02/14/17 14:00 02/14/17 17:53 DC 02/14/17 16:00 4 MG Ondansetron HCl (Zofran Inj) 4 mg STK-MED ONCE .ROUTE 02/14/17 15:56 02/14/17 15:57 DC 02/14/17 15:56 4 MG ECG Indication: other (shoulder pain) Rate (beats per minute): 85 Rhythm: normal sinus Findings: no acute ischemic change, prolonged QT (mildly), no ectopy ED Course 1347: The patient was evaluated in room C5. A complete history and physical exam was performed. 1349: Ordered Zofran Inj 4 mg IV. 1400: Ordered Morphine Sulfate Inj 4 mg IV PRN. 1537: Reevaluated the patient and he is resting comfortably. Discussed results and discharge instructions: he verbalized understanding and agreement. The patient is ready for discharge. Medical Decision Differential diagnosis includes but is not limited to intraabdominal bleeding, arthritis, shoulder strain, shoulder dislocation, AC strain, pneumonia, rib fracture, cardiac ischemia. There is no concerning leukocytosis or concerning anemia. No significant electrolyte abnormality or kidney failure. EKG shows a sinus rhythm, no acute ischemia. Cardiac enzyme testing times one is not consistent with acute cardiac injury. Abdominal and pelvis CT does not show any acute traumatic process. The liver and spleen were not bleeding. Right shoulder film showed a possible AC separation. No shoulder fracture, no dislocation. Chest film did not show pneumothorax or pulmonary contusion. Patient was tender at the area of the right AC joint. I suspect he does have a sprain to this ligament. The patient was placed in a sling. During the ER stay , he was given IV Zofran, IV saline, he was given IV morphine. He seems more comfortable. The patient is being discharged to follow with orthopedics. A small prescription of Udall was provided for pain control. [place] Drug [place] Search Results: patient reviewed within database Drug Monitoring Findings: Patient received Udall on the 6th of this month, no issues. Medication Reconcilliation Current Medication List: was personally reviewed by me Blood Pressure Screening Patient's blood pressure: Elevated blood pressure Blood pressure disposition: Elevated BP felt to be situational Impression Primary Impression: Right shoulder pain Additional Impression: Status post fall Scribe Attestation The scribe's documentation has been prepared under my direction and personally reviewed by me in its entirety. I confirm that the note above accurately reflects all work, treatment, procedures, and medical decision making performed by me. Departure Information Dispostion Home / Self-Care Prescriptions Hydrocodone/Acetaminophen 5MG/325MG (Udall 5MG/325MG) Tab 1 TABLET PO Q6 Y for Pain, #10 TAB Prov: Ankit Willard M.D. 02/14/17 Referrals Addy Dewtit M.D. (PCP) Devang Mcfadden M.D. Patient Instructions My [facility] Additional Instructions wear the sling for comfort call orthopedics for an appt--call kerwin to set things up ice for 30 minutes at a time for help with the pain norco 1-2 tab every 4 hours for pain return if worsening liver and blood work was ok today, ECG was ok Problem Qualifiers Primary Impression: Right shoulder pain Chronicity: acute Qualified Codes: M25.511 - Pain in right shoulder
[2017-02-14 14:17] LABS: HEMATOCRIT 35.9 % (42-52); MEAN CORPUSCULAR HEMOGLOBIN 29.1 pg (25-34); MEAN CORPUSCULAR HGB CONC 32.3 g/dl (32-36); MEAN PLATELET VOLUME 9.8 fL (7.4-10.4); PLATELET COUNT 166 K/uL (130-400); RED BLOOD COUNT 3.99 M/uL (4.7-6.1); WHITE BLOOD COUNT 3.73 K/uL (4.8-10.8)
[2017-02-14 14:33] LABS: BLOOD UREA NITROGEN 17 mg/dl (7-18); BUN/CREATININE RATIO 22.7 (10-20); CALCIUM 9.1 mg/dl (8.5-10.1); CARBON DIOXIDE 25 mmol/L (21-32); CHLORIDE 106 mmol/L (98-107); CREATININE 0.74 mg/dl (0.60-1.40); GLUCOSE 194 mg/dl (70-99); POTASSIUM 3.9 mmol/L (3.5-5.1); SODIUM 140 mmol/L (136-145)
--- NOTE | 2017-02-14 14:42 | DIAGNOSTIC IMAGING REPORT ---
CT SCAN OF THE ABDOMEN AND PELVIS WITHOUT CONTRAST CLINICAL HISTORY: Abdominal pain status post trauma. Patient allergic to contrast. COMPARISON STUDY: 2008 TECHNIQUE: CT scan of the abdomen and pelvis was performed from the lung bases to the proximal femurs. Images are reviewed in the axial, sagittal, and coronal planes. IV contrast was not administered for this examination. A dose lowering technique was utilized adhering to the principles of ALARA. CT DOSE: 898.31 mGycm FINDINGS: Lower chest: No pneumothorax is visualized. The lung bases are unremarkable. The exception of minor atelectatic change. Liver: The unenhanced liver is normal in size, contour, and attenuation. There is no intrahepatic biliary ductal dilatation. Gallbladder: Unremarkable. Spleen: Normal in size and attenuation. Pancreas: Unremarkable. Adrenal glands: Unremarkable. Kidneys: The unenhanced kidneys are normal in size without hydronephrosis. There is no contour deforming renal mass lesion. No renal calculi are identified. Bowel: There are no transition zones indicate bowel obstruction. There is no interloop fluid. There are no extraluminal gas collections. Peritoneum: There is no intraperitoneal free air or abdominal ascites. There is a small fat-containing umbilical hernia. There is minimal infiltration of the central mesentery, finding unchanged from the 2008 study. Vasculature: The abdominal aorta is normal in course and caliber. Adenopathy: There are mildly prominent central mesenteric lymph nodes, finding also similar to the preceding 2008 examination. Pelvic viscera: The bladder, and pelvic viscera are unremarkable. Skeletal structures: No destructive osseous lesions are seen. IMPRESSION: No acute intra-abdominal or pelvic findings. No evidence of acute intra-abdominal or pelvic injury given the limitations of a noncontrast study Electronically signed by: Masoud Figueroa M.D. 02/14/2017 2:40 PM Dictated Date/Time: 02/14/2017 2:37 PM
[2017-02-14] MEDS ORDERED: D5W AND 1/2NSS 1,000 ML IV STA (15:05)
[2017-02-14] MEDS ORDERED: DEXTROSE 50% 50 ML SYR IV ONE (15:15)
--- NOTE | 2017-02-14 15:26 | DIAGNOSTIC IMAGING REPORT ---
TWO VIEW CHEST CLINICAL HISTORY: Right-sided chest pain.. FINDINGS: PA and lateral chest radiographs are compared to study dated 02/04/2017. Correlation is made with chest CT dated 01/08/2017. The PA view is degraded by patient rotation. The cardiomediastinal silhouette is unremarkable. Chronic interstitial thickening similar to previous. Linear atelectasis is noted at the left lung base. No airspace consolidation is seen typical for pneumonia and there is no pleural effusion. There is no pneumothorax. The skeletal structures are osteopenic. Degenerative change is seen throughout the thoracic spine. There are healed bilateral rib fractures. IMPRESSION: No active disease in the chest. Electronically signed by: Ankit Lovell M.D. 02/14/2017 3:25 PM Dictated Date/Time: 02/14/2017 3:23 PM
[2017-02-14] MEDS ORDERED: MULT-190 PO (15:27)
[2017-02-14] MEDS ORDERED: MULT-506 PO (15:27)
[2017-02-14] MEDS ORDERED: INSDGI SC (15:27)
[2017-02-14] MEDS ORDERED: NAPR1TAB9 PO (15:28)
[2017-02-14] MEDS ORDERED: BRIN3SUS OPB (15:28)
--- NOTE | 2017-02-14 15:28 | DIAGNOSTIC IMAGING REPORT ---
R SHOULDER MIN 3 VIEWS ROUTINE CLINICAL HISTORY: Right shoulder pain. Trauma. COMPARISON: None. DISCUSSION: No fractures or dislocations of the right proximal humerus are visualized. There are mild degenerative changes. There is borderline widening of the right acromial clavicular joint. This could indicate an AC joint separation. Supplemental views of the AC joints without and with weights could be obtained in follow-up as deemed clinically indicated. There are multiple old right-sided rib fractures. IMPRESSION: 1. No acute fractures 2. Multiple old right-sided rib fractures 3. Borderline widening of the AC joint. This could indicate an AC joint separation. Electronically signed by: Masoud Figueroa M.D. 02/14/2017 3:26 PM Dictated Date/Time: 02/14/2017 3:24 PM
[2017-02-14] MEDS ORDERED: ONDANSETRON INJ 2 MG/ML 2 ML VIAL ONE (15:56)
[2017-02-14] MEDS ORDERED: HYDR-5688 PO (16:07)
[2017-02-14 17:28] VITALS: BP 131/70; PULSE 87; TEMP 37; O2SAT 96
== END 2017-02-14 17:30 | disposition home or self-care (01) ==
LOC: EDBD 13:37 → C.EDC 13:38
DX: M25.511 Pain in right shoulder (principal); W10.9XXD Fall (on) (from) unspecified stairs and steps, subsequent encounter; E11.43 Type 2 diabetes mellitus with diabetic autonomic (poly)neuropathy; E78.5 Hyperlipidemia, unspecified; I10 Essential (primary) hypertension; E03.9 Hypothyroidism, unspecified; Z80.9 Family history of malignant neoplasm, unspecified; Z83.3 Family history of diabetes mellitus; Z82.49 Family history of ischemic heart disease and other diseases of the circulatory system; Z87.891 Personal history of nicotine dependence; Z79.899 Other long term (current) drug therapy

== ENCOUNTER → 2017-06-05 | Outpatient (CLI) | payer BC ==
[~2017-06-05] MED LIST changes: -ATOR-24 PO; +BRIN3SUS OPB; -CYAN1TAB17 PO; -ESCI1TAB10 PO; +HYDR-5688 PO; +INSDGI SC; -INSDGIPEN SQ; +MULT-190 PO; +MULT-506 PO; +NAPR1TAB9 PO; -OXYC-57 PO
[2017-06-05 13:41] LABS: BASO % 0.5 %; BASO ABS # 0.02 K/uL (0-0.2); EOS ABS # 0.13 K/uL (0-0.5); HEMATOCRIT 38.1 % (42-52); HEMOGLOBIN 12.3 g/dL (14.0-18.0); IG# 0.01 K/uL (0.00-0.02); LYMPH ABS # 0.99 K/uL (1.2-3.4); MEAN CELL VOLUME 90.5 fL (80-100); MEAN CORPUSCULAR HEMOGLOBIN 29.2 pg (25-34); MEAN CORPUSCULAR HGB CONC 32.3 g/dl (32-36); MEAN PLATELET VOLUME 10.4 fL (7.4-10.4); MONO % 7.2 %; MONO ABS # 0.31 K/uL (0.11-0.59); NEUT % 66.1 %; NEUT ABS # 2.84 K/uL (1.4-6.5); PLATELET COUNT 184 K/uL (130-400); RED CELL DISTRIBUTION WIDTH CV 13.5 % (11.5-14.5); RED CELL DISTRIBUTION WIDTH SD 44.9 fL (36.4-46.3)
[2017-06-05 14:26] LABS: ALBUMIN 3.5 gm/dl (3.4-5.0); ALKALINE PHOSPHATASE 121 U/L (45-117); ALT/SGPT 33 U/L (12-78); AST/SGOT 19 U/L (15-37); BLOOD UREA NITROGEN 16 mg/dl (7-18); CALCIUM 8.9 mg/dl (8.5-10.1); CARBON DIOXIDE 27 mmol/L (21-32); CREATININE 0.94 mg/dl (0.60-1.40); GLUCOSE 237 mg/dl (70-99); POTASSIUM 4.3 mmol/L (3.5-5.1); SODIUM 138 mmol/L (136-145); TOTAL PROTEIN 6.5 gm/dl (6.4-8.2)
[2017-06-05 14:39] LABS: CHOLESTEROL 158 mg/dl (0-200); LDL CHOLESTEROL CALCULATED 73 mg/dl
[2017-06-06 05:52] LABS: HEMOGLOBIN A1C 8.2 % (4.5-5.6)
== END | disposition home or self-care (01) ==
LOC: C.LABBC 09:32
PROVIDERS: ATTEND Internal Medicine
DX: E03.9 Hypothyroidism, unspecified (principal); D63.8 Anemia in other chronic diseases classified elsewhere; E06.3 Autoimmune thyroiditis; E10.9 Type 1 diabetes mellitus without complications; I10 Essential (primary) hypertension; E55.9 Vitamin D deficiency, unspecified; E10.649 Type 1 diabetes mellitus with hypoglycemia without coma

== ENCOUNTER 2017-07-25 14:28 | Emergency (ER) | payer BC ==
[~2017-07-25] VITALS: Ht 170.2 cm; Wt 98.0 kg
[2017-07-25 14:30] VITALS: TEMP 36.9; Ht 170.2 cm; Wt 98.0 kg
[2017-07-25] MEDS ORDERED: LXP/20 PO (14:51)
--- NOTE | 2017-07-25 15:05 | EMERGENCY ROOM VISIT NOTE ---
ED Visit Note First contact with patient: 14:43 CHIEF COMPLAINT: knee pain HISTORY OF PRESENT ILLNESS: This 67-year-old male patient presents to the emergency department approximately 10 hours after sustaining an injury to the right knee while walking upstairs. He states he was walking up the steps when he heard and felt a loud snap in the right knee. He states the pain has been in the right anterior/medial aspect of the knee. He did not fall, simply felt the discomfort while walking up the steps. The patient denies any other injuries besides their knee. The patient denies swelling or bruising. There is pain in the anterior/medial aspect. They rate the pain as sharp and 8/10. The patient states they are able to walk on it with his walking stick/cane. No numbness or tingling. No previous injuries to this knee. No ankle, foot or hip pain. The patient has taken 2 doses of Thornwood with significant improvement in pain. He is in no pain at this time. The patient denies history of injury to the right knee. REVIEW OF SYSTEMS: A 6 system review of systems was completed with positives and pertinent negatives listed in the HPI. ALLERGIES: Iodine, contrast PMH: Diabetes, anemia, hypertension, dyslipidemia, Selma's, vitamin D deficiency, blindness SOCIAL HISTORY: The patient lives locally with family. He denies drug, alcohol , tobacco use. PHYSICAL EXAM: Vital Signs: Reviewed Nurse's notes, vital signs stable. GENERAL : This is a 67-year-old white male, no acute distress, but appears in pain, well -developed, well-nourished. MENTAL STATUS: Alert, oriented to person place and time, and cooperative. MUSCULOSKELETAL: The right knee is not swollen. There is no ecchymosis. There is no joint effusion present. The patient has no tenderness at this time. There is no joint line tenderness. The patella does appropriately subluxate. Range of motion is full. Strength of the quads and hamstrings is 5/5. Genaro's is negative. Malka's and Anterior Drawer tests are negative. There is no discomfort or laxity with varus and valgus stressing. The foot and toes are warm and well-perfused. Dorsalis pedis pulse 2+. Sensation to pain and light touch is intact. Capillary refill less than 2 seconds. RADIOLOGY: R KNEE 3 VIEWS CLINICAL HISTORY: Right knee pain following injury. COMPARISON: Right tibia and fibula radiographs January 08, 2017. FINDINGS: Alignment of the right knee is anatomic. There is minimal medial compartment joint space narrowing. There is no acute fracture. A small right knee joint effusion is noted. There is spurring of the tibial tubercle. There is moderate vascular calcification. IMPRESSION: 1. No acute fracture. 2. Small right knee joint effusion. Electronically signed by: Ang Park M.D. 07/25/2017 3:44 PM Dictated Date/Time: 07/25/2017 3:43 PM EMERGENCY DEPARTMENT COURSE: I examined the patient. X-rays of the right knee were reviewed by myself and read by radiology and reveal no acute fracture, but a small joint effusion. The patient was offered an KYLE wrap and walker, and declines. There is no indication on the patient's x-ray for acute injury or fracture, and I suspect a sprain or strain. I did discuss the case with Dr. Willard, who did independently see and evaluate the patient. Discharge instructions reviewed, and the patient was discharged home in good condition. I attest that I have personally reviewed the patient's current medication list. Patient was found to have normal blood pressure on screening and does not require follow-up. DIFFERENTIAL DIAGNOSIS: sprain/strain, contusion, fracture, lyme, arthritis, abscess, Yin's Cyst, malignancy, and others DIAGNOSIS: Right knee pain Problem List Medical Problems: (1) Altered level of consciousness Status: Resolved (2) Diabetes Status: Chronic (3) Hyperlipidemia Nec/Nos Status: Chronic (4) Hypertension Nos Status: Chronic (5) Hypoglycemia Status: Resolved (6) Hypothyroidism Nos Status: Chronic Current/Historical Medications Scheduled Brinzolamide-Brimonidine Tartr (Simbrinza), 2 DROPS OPB DAILY Escitalopram Oxalate (Escitalopram Oxalate), 20 MG PO DAILY Insulin Glargine (Lantus), 10 UNITS SC QAM Insulin Lispro (Human) (Humalog Kwikpen), UNITS SQ UD Levothyroxine Sodium (Levothyroxine Sodium), 1 TAB PO QAM Metformin Hcl Er (Glucophage Er), 1,000 MG PO DAILY @ EVENING MEAL Multivitamin (Multivitamin), 1 TAB PO DAILY Naproxen (Aleve), 220 MG PO DAILY Ocuvite Preservision (Ocuvite Preservision), 1 TAB PO DAILY Ramipril (Ramipril), 5 MG PO QAM Scheduled PRN Hydrocodone/Acetaminophen 5MG/325MG (Thornwood 5MG/325MG), 1 TABLET PO Q6 PRN for Pain Allergies Coded Allergies: Iodinated Diagnostic Agents (Verified Allergy, Unknown, PT UNSURE OF EXACT RXN BUT HAD ISSUE DURING TEST, 07/25/17) Iodine (Verified Allergy, Unknown, TOPICAL REDNESS AND EDEMA, 07/25/17) Vital Signs Date Time Temp Pulse Resp B/P (MAP) Pulse Ox O2 Delivery O2 Flow Rate FiO2 07/25/17 16:50 70 20 135/66 96 07/25/17 14:30 36.9 87 18 145/69 96 Room Air Departure Information Impression Primary Impression: Knee pain Dispostion Home / Self-Care Condition GOOD Referrals Addy Dewitt M.D. (PCP) Patient Instructions ED Knee Pain [facility]i [facility] Additional Instructions You have been treated in the Emergency Department for Knee Pain. Use the Hydrocodone-acetaminophen you have been previously prescribed for pain. This is a narcotic medication. You cannot drive or consume alcohol while on this medicine. This medicine should only be used for pain that cannot be controlled with [id number] pain medicines. For pain control, you can use the following [id number] medicines (if >12 yo): - Regular strength (325mg/tab) Tylenol (acetaminophen) 2 tabs every 4-6 hours as needed. Do not exceed 9 tablets in a 24 hour period. Avoid taking more than 3 grams (3000 mg) of Tylenol per day. This includes any other sources of acetaminophen you may take on a regular basis. - Regular strength (200 mg/tab) Advil (ibuprofen) 1-2 tabs every 4-6 hours as needed. Do not exceed a dose of 2400 mg per day. If this is a recent injury (<24 hrs), ice can be applied to the area of pain for the first 3 days to help decrease pain and inflammation. Ice massages can be performed by freezing water in a paper cup, peeling back the cup to expose the ice and then massaging over the affected area. Use your assistive devices to help with ambulation. Follow-up with your PCP within 1 week for re-evaluation and follow-up. Return to the Emergency Department if your current symptoms worsen despite treatment course outlined above. Problem Qualifiers Primary Impression: Knee pain Chronicity: acute Laterality: right Qualified Codes: M25.561 - Pain in right knee
--- NOTE | 2017-07-25 15:45 | DIAGNOSTIC IMAGING REPORT ---
R KNEE 3 VIEWS CLINICAL HISTORY: Right knee pain following injury. COMPARISON: Right tibia and fibula radiographs January 08, 2017. FINDINGS: Alignment of the right knee is anatomic. There is minimal medial compartment joint space narrowing. There is no acute fracture. A small right knee joint effusion is noted. There is spurring of the tibial tubercle. There is moderate vascular calcification. IMPRESSION: 1. No acute fracture. 2. Small right knee joint effusion. Electronically signed by: Ang Park M.D. 07/25/2017 3:44 PM Dictated Date/Time: 07/25/2017 3:43 PM
--- NOTE | 2017-07-25 16:08 | EMERGENCY ROOM VISIT NOTE ---
ED Visit Note First contact with patient: 14:43 Patient was seen by our PA/BILLBOARD MECHANIC. I was involved in the patient's care and did evaluate the patient myself. I was involved in the care throughout the ER stay. The patient presents with some right knee pain that began while walking upstairs. On exam, his knee is stable, there is no cellulitis. No evidence for patellar tendon rupture. Films show no fracture, a small joint effusion was appreciated. The patient is being discharged with conservative measures, the knee appears strained.
[2017-07-25 16:50] VITALS: BP 135/66; PULSE 70; O2SAT 96
== END 2017-07-25 16:53 | disposition home or self-care (01) ==
LOC: C.EDB 14:29 → C.EDD 16:53
DX: S89.91XA Unspecified injury of right lower leg, initial encounter (principal); M25.561 Pain in right knee; X58.XXXA Exposure to other specified factors, initial encounter

== ENCOUNTER → 2017-08-29 | Outpatient (CLI) | payer BC ==
--- NOTE | 2017-08-27 11:30 | DIAGNOSTIC IMAGING REPORT ---
ORBITS FOR MRI CLINICAL HISTORY: 67 years-old Male presenting with MRI CLEARANCE. TECHNIQUE: 3 views of the orbits were obtained. COMPARISON: CT head from 01/08/2017. FINDINGS: No radiopaque intraorbital foreign body. Bony orbits grossly intact. Paranasal sinuses grossly clear. Visualized portion of the calvarium intact. IMPRESSION: No intraorbital metallic foreign body to preclude MRI exam. Electronically signed by: Addy Bullock M.D. 08/27/2017 11:29 AM Dictated Date/Time: 08/27/2017 11:28 AM
[~2017-08-29] MED LIST changes: -HYDR-5688 PO; +LXP/20 PO
--- NOTE | 2017-08-29 08:39 | DIAGNOSTIC IMAGING REPORT ---
RIGHT KNEE MRI HISTORY: RT KNEE PAIN, EFFUSION OF RT KNEE COMPARISON STUDY: Right knee 07/25/2017. TECHNIQUE: Multiplanar multisequence MRI of the right knee was performed according to standard department protocol without the use of contrast. FINDINGS: Menisci: The lateral meniscus is intact. Focal 1 cm defect seen within the posterior horn of the medial meniscus near the meniscal root consistent with a tear. There is also abnormal signal within the junction of the body and posterior horn of the medial meniscus consistent with an additional tear. The medial meniscus is slightly extruded from the joint space. Ligaments: Slight increased signal within the proximal MCL best seen on coronal image 18. This suggests a partial tear. The ACL, PCL, and LCL are intact. Extensor mechanism: The quadriceps tendon and patellar ligament are intact. Articular cartilage and bone: Marrow edema within the medial femoral condyle and medial tibial plateau. Greater than 50% cartilage thinning within the medial compartment of the knee small focal areas of hypointense signal within the subchondral location of the medial femoral condyle and medial tibial plateau. This is likely due to to long-standing chondrosis. Small subchondral fractures or osteochondral defects are considered less likely but not entirely excluded. Joint effusion: Small. Soft tissues: Extensive subcutaneous edema throughout the knee. IMPRESSION: 1. Medial meniscal tears as described above. 2. Partial tear at the proximal attachment of the MCL. 3. Marrow edema within the medial femoral condyle and medial tibial plateau with small focal areas of subchondral hypointense signal. This is likely due to the long-standing chondrosis at this location. Small subchondral fractures or osteochondral defects could also have a similar appearance but are considered less likely. 4. Small joint effusion. 5. Extensive subcutaneous edema throughout the knee. Electronically signed by: Michael Cline M.D. 08/29/2017 8:23 AM Dictated Date/Time: 08/29/2017 8:13 AM
== END | disposition home or self-care (01) ==
LOC: C.MRIBC 08-27 10:58
PROVIDERS: ATTEND Internal Medicine
DX: M25.461 Effusion, right knee (principal); M25.561 Pain in right knee

== ENCOUNTER → 2018-01-01 | Outpatient (CLI) | payer BC, OTHER ==
[2017-12-30 08:34] VITALS: BMI 31.0
[~2018-01-01] VITALS: Ht 170.2 cm; Wt 100.9 kg
[~2018-01-01] MED LIST changes: +CEFAZOLIN 2000MG IV PUSH 15 ML IV SCH; +LACTATED RINGER'S 1000ML IV SCH; +LACTATED RINGER'S 500 ML IV SCH
--- NOTE | 2018-01-01 10:23 | HISTORY & PHYSICAL EXAMINATION ---
DATE OF ADMISSION: 01/02/2018 CHIEF COMPLAINT: Right knee pain. HISTORY OF PRESENT ILLNESS: Patient is a 67-year-old male with known osteoarthritis about his right knee. He has had several previous corticosteroid injections, the most recent giving him minimal relief. He continues to have ongoing pain and disability with activities of daily living. He has pain with prolonged weightbearing and standing activities. He has difficulty with any kneeling, bending, or squatting activities. Due to ongoing pain and disability, he now desires to proceed with total knee arthroplasty. PAST MEDICAL HISTORY: Type 1 diabetes, hypercholesterolemia. PAST SURGICAL HISTORY: Oral surgery, thumb surgery, foot surgery. MEDICATIONS: Atorvastatin 40 mg daily, vitamin B12 daily, citalopram 20 mg daily, Humalog insulin as directed, Lantus insulin as directed, Tirosint 150 mcg daily, metformin 500 mg 2 times daily, multivitamin daily, ramipril 5 mg daily. ALLERGIES: IODINE, CONTRAST DYE, SEASONAL ALLERGIES. SOCIAL HISTORY: Noncontributory. REVIEW OF SYSTEMS: Noncontributory. PHYSICAL EXAMINATION: GENERAL: Well-nourished and well-developed elderly male who appears his stated age. HEENT: Normocephalic and atraumatic. Extraocular movements intact. Oropharynx is pink and moist. NECK: Supple, without adenopathy. LUNGS: Clear to auscultation bilaterally. HEART: Regular rate and rhythm. ABDOMEN: Soft, nontender, nondistended. EXTREMITIES: Upper extremities are within normal limits. The right knee has a slight varus alignment. He complains primarily of medial compartment pain. His range of motion is approximately 0-120 degrees. IMAGING: X-rays are reviewed. He has a varus aligned knee. He has near bone on bone arthritis of the medial compartment. He has an osteochondral lesion of the medial femoral condyle. He has moderate degenerative change about the patellofemoral joint. ASSESSMENT: Right knee degenerative joint disease. PLAN: Risks versus benefits were discussed. Consent was obtained. We will proceed with right total knee arthroplasty as indicated.
[2018-01-01 11:55] VITALS: Ht 170.2 cm; Wt 100.9 kg
--- NOTE | 2018-01-01 12:16 | PAT Medication Instructions ---
Service Date Jan 01, 2018. Current Home Medication List Brinzolamide-Brimonidine Tartr (Simbrinza), 2 DROPS OPB DAILY Escitalopram Oxalate (Escitalopram Oxalate), 20 MG PO DAILY Insulin Glargine (Lantus), 10 UNITS SC QAM Insulin Lispro (Human) (Humalog Kwikpen), UNITS SQ UD Levothyroxine Sodium (Levothyroxine Sodium), 1 TAB PO QAM Metformin Hcl Er (Glucophage Er), 1,000 MG PO DAILY @ EVENING MEAL Multivitamin (Multivitamin), 1 TAB PO DAILY Naproxen (Aleve), 220 MG PO DAILY Ocuvite Preservision (Ocuvite Preservision), 1 TAB PO DAILY Ramipril (Ramipril), 5 MG PO QAM Medication Instructions For Your Scheduled Surgery - Hold the following medications the morning of surgery: Insulin Lispro (Human) (Humalog Kwikpen), UNITS SQ UD Multivitamin (Multivitamin), 1 TAB PO DAILY Naproxen (Aleve), 220 MG PO DAILY Ocuvite Preservision (Ocuvite Preservision), 1 TAB PO DAILY Ramipril (Ramipril), 5 MG PO QAM - Take the following medications the morning of surgery with a sip of water: Brinzolamide-Brimonidine Tartr (Simbrinza), 2 DROPS OPB DAILY Escitalopram Oxalate (Escitalopram Oxalate), 20 MG PO DAILY Levothyroxine Sodium (Levothyroxine Sodium), 1 TAB PO QAM - Take the following medications as scheduled the night before surgery: Brinzolamide-Brimonidine Tartr (Simbrinza), 2 DROPS OPB DAILY Metformin Hcl Er (Glucophage Er), 1,000 MG PO DAILY @ EVENING MEAL Insulin Lispro (Human) (Humalog Kwikpen), UNITS SQ UD - For Insulin Dependent Diabetic patients: Test blood sugar A.M. of surgery. - CONTINUE YOUR CGM AT THE BASAL RATE -- DO NOT BOLUS If you have any questions please call us at [phone] or [phone] or [phone]
[2018-01-01 12:23] LABS: BASO % 0.4 %; BASO ABS # 0.02 K/uL (0-0.2); EOS ABS # 0.19 K/uL (0-0.5); HEMATOCRIT 35.2 % (42-52); HEMOGLOBIN 11.7 g/dL (14.0-18.0); IG# 0.01 K/uL (0.00-0.02); LYMPH % 24.1 %; LYMPH ABS # 1.15 K/uL (1.2-3.4); MEAN CELL VOLUME 89.3 fL (80-100); MEAN CORPUSCULAR HEMOGLOBIN 29.7 pg (25-34); MEAN CORPUSCULAR HGB CONC 33.2 g/dl (32-36); MEAN PLATELET VOLUME 9.7 fL (7.4-10.4); MONO % 7.1 %; MONO ABS # 0.34 K/uL (0.11-0.59); NEUT % 64.2 %; NEUT ABS # 3.06 K/uL (1.4-6.5); PLATELET COUNT 179 K/uL (130-400); RED CELL DISTRIBUTION WIDTH CV 13.6 % (11.5-14.5); RED CELL DISTRIBUTION WIDTH SD 44.6 fL (36.4-46.3); WHITE BLOOD COUNT 4.77 K/uL (4.8-10.8)
[2018-01-01 12:49] LABS: INR 0.9 (0.9-1.1); PTT PATIENT 24.6 SECONDS (21.0-31.0)
[2018-01-01 13:37] LABS: ALBUMIN 3.5 gm/dl (3.4-5.0); CALCIUM 8.8 mg/dl (8.5-10.1); CREATININE 0.92 mg/dl (0.60-1.40); POTASSIUM 5.2 mmol/L (3.5-5.1)
--- NOTE | 2018-01-10 06:59 | CODING QUERY MEDICAL NECESSITY ---
: 1950 SUPPORTING DIAGNOSIS NEEDED A supporting diagnosis is required for the test/procedure performed on this patient in order for us to be reimbursed by the patient's insurance. Please provide a supporting diagnosis for the following test/procedure listed below next to the test name along with your signature. *If there is no additional diagnosis for this patient that would support the following test/procedure please document that below next to the test/procedure. Test(s)/Procedure(s) that require a supporting diagnosis: DOS: 01/01/18 * CBC WITH AUTO DIFFERENTIAL DIAGNOSIS: * PARTIAL RENAL PROFILE DIAGNOSIS: * PTT DIAGNOSIS: * PROTHROMBIN TIME PROFILE DIAGNOSIS: * TYPE/SCREEN PROFILE DIAGNOSIS: * UA CLEAN CATCH CULTURE DIAGNOSIS: * ALBUMIN DIAGNOSIS: * HEMOGLOBIN A1C DIAGNOSIS: * ECG ROUTINE DIAGNOSIS: Provider Signature: Date: Thank you Maryann Jernigan [employer] Information [employer] Once completed, please kindly fax back to [phone] For questions please call [phone]
== END | disposition home or self-care (01) ==
LOC: C.LAB 08:00 → EDSTATUS 01-02 07:47
DX: Z01.818 Encounter for other preprocedural examination (principal)

== ENCOUNTER 2020-02-22 10:30 | Observation (INO) ==
[2020-02-22] MEDS ORDERED: SODIUM CHLORIDE 0.9% 500 ML IV ONE (11:55)
--- NOTE | 2020-02-22 12:03 | Emergency Department Note ---
Impression & Plan Fracture, ribs, Fall, Fever, Tachycardia ED Provider Note NAME: MILLICENT HARVEY AGE: 69 SEX: M : 1950 ARRIVES VIA: Walk-In INFORMANT: Patient ED PROVIDER(S): Wilfred Wu DO CHIEF COMPLAINT: Left-sided chest and abdomen pain HPI: Patient is a 69-year-old diabetic who presents the ER following a mechanical fall on Saturday and Saturday. On Saturday he fell and hit his head. At that time he was holding an object that he was working on and it started to lean and he went down with it. He did hit his head. No loss consciousness. Saturday he tripped over an electrical cord while working and fell. He caught himself with his arms but did hit his left chest and abdomen. Since then he has been having pain in his left belly and chest with any kind of deep breaths. Denies any nausea vomiting. Notes his sugars have been up. He denies any fevers. No headache or neck pain. No cough or runny nose. No loss of taste or smell. Denies any dysuria urgency or frequency. He notes it was his right foot that got caught and following that he noticed a blister and some bruising on his right first and second toes. His pain is a 9 out of 10 with taking a deep breath. Taking shallow breaths improves the symptoms. ROS: See above HPI for pertinent positives & negatives. A total of 10 systems reviewed and were otherwise negative. PAST MEDICAL HISTORY:See Below PAST SURGICAL HISTORY:See Below FAMILY HISTORY:See Below SOCIAL HISTORY:See Below HOME MEDICATIONS:See Below ALLERGIES:See Below VITALS:See Below PHYSICAL EXAMINATION: GENERAL: alert, well appearing, well nourished, no distress, non-toxic HEAD: normal cephalic, small abrasion to right frontal forehead EYE EXAM: normal conjunctiva, PERRL and EOM's grossly intact OROPHARYNX: no exudate, no erythema, lips, buccal mucosa, and tongue normal and mucous membranes are moist NECK: supple, no nuchal rigidity, no adenopathy, non-tender CHEST: stable to compression anteriorly and posteriorly. Tenderness throughout the left mid axillary line tracking down to the left abdomen LUNGS: clear to auscultation. Normal chest wall mechanics HEART: no murmurs, S1 normal and S2 normal ABDOMEN: abdomen soft, non-tender, normo-active bowel sounds, no masses, no rebound or guarding. PELVIS: stable to compression anteriorly and posteriorly BACK: Back is symmetrical on inspection and there is no deformity, no midline tenderness, no CVA tenderness. UPPER EXTREMITIES: full active and passive range of motion of all joints without tenderness to palpation LOWER EXTREMITIES: Flexion-extension of bilateral hips, knees, and ankles intact. No tenderness throughout bilateral femurs or shins. Right first and second digit with bruising and a burst blister over the dorsal surface just proximal to the right first nailbed NEURO EXAM: Normal sensorium, cranial nerves II-XII grossly intact, normal speech, no gross weakness of arms, no gross weakness of legs. GCS: 15. MEDICAL DECISION MAKING: Patient is a 69-year-old male who presents the ER following mechanical fall Saturday. Complaining of left-sided chest pain. IV was established blood work was obtained. Upon presentation he was found to be tachycardic and febrile. Temperature was 38.3. Labs show no significant leukocytosis or anemia. INR was unremarkable. BMP with slightly elevated glucose at 254. Lactate was elevated at 2. LFTs bilirubin and troponin was negative. UA does show bacteria, epithelial cells and white cells. CT of the chest shows 2 rib fractures, CT abdomen pelvis was fairly unremarkable CT head and cervical spine was negative. X-rays of show no obvious foreign body. Patient was updated bedside. He has been on doxycycline. He was given IV vancomycin and cefepime for Pseudomonas and MRSA. Discussed with hospitalist for further evaluation. Triage Nursing notes reviewed. Prior medical records reviewed Vital Signs: reviewed and remarkable for febrile and tachycardic Differential diagnosis: Differential diagnosis includes etiologies such as sepsis, UTI, pneumonia, metabolic, electrolyte abnormalities, cardiac sources, intracerebral event, toxicologic, neurological, as well as others were entertained. ER treatment provided: See below Diagnostics interpreted by me: ECG: Sinus rhythm rate of 99 Normal axis No PVCs Normal QTC Cardiac Monitoring: An order was placed for continuous cardiac monitoring. The monitor shows a rate of 92 with sinus rhythm. Laboratory studies: As stated above and show below. Imaging studies: CTs as discussed above Consultation(s): Discussed with Dr. Kiran Davis for admission ED COURSE: Procedures: none Critical Care: None Past Med/Surg History Medical History (Updated 02/22/20 @ 18:25 by Wilfred Wu DO) Altered level of consciousness Anemia CHRONIC; BASELINE HGB 11-12 RANGE PER CHART REVIEW Anemia of chronic disease Balance problem Chronic pain of right knee Depression Diabetes mellitus IDDM "TYPE 1" PER ENDOCRINE (DIAGNOSED IN LATE 20'S, ON INSULIN WITHIN 2 Y EARS) Diabetes mellitus type 1, uncontrolled Diabetic peripheral neuropathy associated with type 1 diabetes mellitus Dyslipidemia Glaucoma Selma's thyroiditis Hypertension Hypoglycemia unawareness in type 1 diabetes mellitus Hypothyroidism Legally blind Loss of sensation Obesity Osteoarthritis Personal history of diabetic foot ulcer Proliferative diabetic retinopathy associated with type 1 diabetes mellitus Reactive depression (situational) Rib fractures Sensorineural hearing loss of both ears Temporomandibular joint disorder NO LOCKING Type 1 diabetes mellitus with complication Vitamin D deficiency Surgical History (Updated 02/22/20 @ 16:13 by Kiran Odonnell) H/O colonoscopy H/O cystoscopy H/O hand surgery RIGHT THUMB History of cataract surgery R/L History of tonsillectomy History of tooth extraction Hx of foot surgery DEBRIDEMENT RIGHT FOOT Family History (Updated 02/22/20 @ 15:25 by Kiran Odonnell) Father , age 84 - pulmonary embolism after hip surgery Pulmonary embolism Unknown Leukemia Diabetes Cancer Hypertension Mother , age 98 - biliary sepsis/cholecystitis? No problems noted. Denies family history of Ovarian cancer Prostate cancer Myocardial infarction Breast cancer Colorectal cancer Stroke Social History Smoking Status: Former smoker Tobacco Type: Cigarettes packs per day: 0.5; Years Smoked: 5; Second Hand Exposure: No; Hx Alcohol Use: No Hx Substance Use: No Preferred Language: Uzbek Communication Ability: Effective Communication Ability Comment: legally blind Visual Impairment: Severely Limited Hearing Ability: Normal Anesthesiology Physician Required: No Beliefs That Will Affect Care: None marital status: Current Living Situation: Spouse Current Living Situation Comment: lives with in [place] current 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 status: 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 How many Children do You have: 2 How many Children do You have Comment: daughters Other Information That Helps Us Care for You: No Feels Safe at Home: Yes Safety Concerns: Feels Safe At This Time Childhood Exposure to Second-Hand Smoke: Yes caffeine: Yes Dental Care, Regularly: Yes Physical Activity Frequency: Does not Exercise Seatbelt Use: always Sunscreen Use: No Assistive Devices: Special Shoe Allergies Allergies Allergy/AdvReac Type Severity Reaction Status Date / Time Iodinated Contrast Media Allergy Unknown UNKNOWN Verified 02/22/20 13:18 REACTION iodine Allergy Unknown TOPICAL Verified 02/22/20 13:18 REDNESS AND EDEMA Home Meds Home Medications Medication Instructions Recorded Confirmed Humalog U-100 Insulin 15 sliding scale dose SUBCUT UD 07/08/18 02/22/20 Ocuvite Adult 50 Plus 1 cap PO QAM 07/08/18 02/22/20 Simbrinza 1 drp OPHTHALMIC (EYE) BID 07/08/18 02/22/20 ibuprofen [Advil] 400 mg PO QID PRN 07/08/18 02/22/20 multivitamin 1 tab PO QAM 07/08/18 02/22/20 ammonium lactate 12 % topical cream 1 appln TOPICAL BID #1 gm 12/08/18 02/22/20 aspirin 81 mg tablet,delayed 81 mg PO DAILY #30 tab 12/08/18 02/22/20 release cholecalciferol (vitamin D3) 50 2,000 units PO DAILY 12/08/18 02/22/20 mcg (2,000 unit) capsule cyanocobalamin (vitamin B-12) 2,500 mcg PO DAILY tab 12/08/18 02/22/20 2,500 mcg tablet Previous Rx's Medication Instructions Recorded escitalopram oxalate 20 mg tablet 20 mg PO DAILY #90 tab 04/16/19 ramipril 5 mg capsule 5 mg PO DAILY #90 cap 04/16/19 levothyroxine 175 mcg tablet 175 mcg PO DAILY #90 tab 08/13/19 Lantus Solostar U-100 Insulin 100 See Rx Instructions SUBCUT HS #45 09/02/19 unit/mL (3 mL) subcutaneous pen ml NS metformin 500 mg tablet,extended 1,000 mg PO DAILY #180 tab 10/26/19 release 24hr atorvastatin 40 mg tablet 80 mg PO QPM #90 tab 12/02/19 diclofenac sodium 1 % topical gel 4 gm TOP QID #100 gm 12/16/19 Results & Data (ED) Vital Signs Vital Signs - 24 hr 02/22/20 10:48 02/22/20 12:43 02/22/20 12:45 Temperature 38.3 C H Temperature Source Oral Pulse Rate 103 H 97 H 92 H Respiratory Rate 20 19 16 Respiratory Effort / Characteristics Non-Labored Spontaneous Blood Pressure 171/77 H 133/77 Blood Pressure Mean 108 95 Pulse Oximetry 95 97 97 Oxygen Delivery Method Room Air Room Air Sepsis Recent Fever Within 48 Hours No Sepsis New/Unexplained Change in Mental Status N/A Sepsis Action Taken by Nursing No Action Required 02/22/20 14:26 02/22/20 14:28 02/22/20 15:00 Temperature Temperature Source Pulse Rate 100 H 94 H 94 H Respiratory Rate 23 16 Respiratory Effort / Characteristics Blood Pressure 151/73 H Blood Pressure Mean 110 Pulse Oximetry Oxygen Delivery Method Sepsis Recent Fever Within 48 Hours Sepsis New/Unexplained Change in Mental Status Sepsis Action Taken by Nursing 02/22/20 15:30 02/22/20 15:35 Temperature Temperature Source Pulse Rate 100 H 102 H Respiratory Rate 22 19 Respiratory Effort / Characteristics Blood Pressure 172/92 H Blood Pressure Mean 107 Pulse Oximetry Oxygen Delivery Method Sepsis Recent Fever Within 48 Hours Sepsis New/Unexplained Change in Mental Status Sepsis Action Taken by Nursing Laboratory Data Result diagrams: 02/22/20 12:48 02/22/20 12:48 Lab Results 02/22/20 02/22/20 02/22/20 Range/Units 12:48 12:48 12:48 WBC 6.71 (4.8-10.8) K/uL RBC 4.10 L (4.7-6.1) M/uL Hgb 11.9 L (14.0-18.0) g/dL Hct 36.9 L (42-52) % MCV 90.0 (80-100) fL MCH 29.0 (25-34) pg MCHC 32.2 (32-36) g/dL RDW Std Deviation 47.0 H (36.4-46.3) fL RDW Coeff of Roland 14.2 (11.5-14.5) % Plt Count 153 (130-400) K/uL MPV 10.6 H (7.4-10.4) fL Immature Gran % (Auto) 0.1 % Neut % (Auto) 80.4 % Lymph % (Auto) 10.7 % [place] % (Auto) 5.7 % Eos % (Auto) 3.0 % Baso % (Auto) 0.1 % Neut # (Auto) 5.39 (1.4-6.5) K/uL Lymph # (Auto) 0.72 L (1.2-3.4) K/uL [place] # (Auto) 0.38 (0.11-0.59) K/uL Eos # (Auto) 0.20 (0-0.5) K/uL Baso # (Auto) 0.01 (0-0.2) K/uL Immature Gran # (Auto) 0.01 (0.00-0.02) K/uL PT 10.3 (9.0-12.0) Seconds INR 1.0 (0.9-1.1) APTT 26.5 (21.0-31.0) Seconds PTT Ratio 0.9 Sodium 139 (136-145) mmol/L Potassium 4.2 (3.5-5.1) mmol/L Chloride 107 (98-107) mmol/L Carbon Dioxide 25 (21-32) mmol/L Anion Gap 7.0 (3-11) BUN 21 H (7-18) mg/dl Creatinine 0.98 (0.6-1.4) mg/dl Est Cr Clr Drug Dosing 80.2 ml/min Est GFR ( Amer) 89.5 Est GFR (Non-Af Amer) 77.3 BUN/Creatinine Ratio 20.9 H (10-20) Glucose 254 H (70-99) mg/dl Lactate (0.4-2.0) mmol/L Calcium 9.4 (8.5-10.1) mg/dl Magnesium 1.9 (1.8-2.4) mg/dl Total Bilirubin 0.6 (0.2-1) mg/dl AST 22 (15-37) U/L ALT 36 (12-78) U/L Alkaline Phosphatase 109 (45-117) U/L Troponin I < 0.015 (0-0.045) ng/ml Total Protein 7.1 (6.4-8.2) gm/dl Albumin 3.6 (3.4-5.0) gm/dl Globulin 3.5 (2.5-4.0) gm/dl Albumin/Globulin Ratio 1.0 (0.9-2) 02/22/20 Range/Units 12:48 WBC (4.8-10.8) K/uL RBC (4.7-6.1) M/uL Hgb (14.0-18.0) g/dL Hct (42-52) % MCV (80-100) fL MCH (25-34) pg MCHC (32-36) g/dL RDW Std Deviation (36.4-46.3) fL RDW Coeff of Roland (11.5-14.5) % Plt Count (130-400) K/uL MPV (7.4-10.4) fL Immature Gran % (Auto) % Neut % (Auto) % Lymph % (Auto) % [place] % (Auto) % Eos % (Auto) % Baso % (Auto) % Neut # (Auto) (1.4-6.5) K/uL Lymph # (Auto) (1.2-3.4) K/uL [place] # (Auto) (0.11-0.59) K/uL Eos # (Auto) (0-0.5) K/uL Baso # (Auto) (0-0.2) K/uL Immature Gran # (Auto) (0.00-0.02) K/uL PT (9.0-12.0) Seconds INR (0.9-1.1) APTT (21.0-31.0) Seconds PTT Ratio Sodium (136-145) mmol/L Potassium (3.5-5.1) mmol/L Chloride (98-107) mmol/L Carbon Dioxide (21-32) mmol/L Anion Gap (3-11) BUN (7-18) mg/dl Creatinine (0.6-1.4) mg/dl Est Cr Clr Drug Dosing ml/min Est GFR ( Amer) Est GFR (Non-Af Amer) BUN/Creatinine Ratio (10-20) Glucose (70-99) mg/dl Lactate 2.0 (0.4-2.0) mmol/L Calcium (8.5-10.1) mg/dl Magnesium (1.8-2.4) mg/dl Total Bilirubin (0.2-1) mg/dl AST (15-37) U/L ALT (12-78) U/L Alkaline Phosphatase (45-117) U/L Troponin I (0-0.045) ng/ml Total Protein (6.4-8.2) gm/dl Albumin (3.4-5.0) gm/dl Globulin (2.5-4.0) gm/dl Albumin/Globulin Ratio (0.9-2) Administered Medications Discontinued Medications Acetaminophen (Acetaminophen 325 Mg Tab) 650 mg PO NOW STA Stop: 02/22/20 13:57 Last Admin: 02/22/20 15:21 Dose: 650 mg Documented by: [id number] Sodium Chloride (Nss) 500 mls @ 999 mls/hr IV .Q31M ONE Stop: 02/22/20 12:25 Last Infusion: 02/22/20 13:15 Dose: 0 mls/hr Documented by: [id number] Admin: 02/22/20 12:44 Dose: 999 mls/hr Documented by: [id number] Ceftriaxone Sodium (Rocephin) 1,000 mg in 50 mls @ 100 mls/hr IV NOW STA Stop: 02/22/20 14:25 Last Infusion: 02/22/20 16:00 Dose: 0 mls/hr Documented by: [id number] Admin: 02/22/20 15:20 Dose: 100 mls/hr Documented by: [id number] Sodium Chloride (Nss 1000ml) 1,000 mls @ 999 mls/hr IV .Q1H1M ONE Stop: 02/22/20 14:56 Last Infusion: 02/22/20 16:28 Dose: 0 mls/hr Documented by: [id number] Admin: 02/22/20 15:20 Dose: 999 mls/hr Documented by: [id number] Ceftriaxone Sodium (Rocephin) 1,000 mg in 50 mls @ 100 mls/hr IV NOW STA Stop: 02/22/20 16:28 Last Admin: 02/22/20 16:36 Dose: Not Given Documented by: [id number] Morphine Sulfate (Morphine Sulfate 4 Mg/Ml 1 Ml Carp\\Vial) 4 mg IV NOW STA Stop: 02/22/20 14:23 Last Admin: 02/22/20 15:37 Dose: 4 mg Documented by: [id number] Discharge Plan Visit Data Chief Complaint: Fall Stated Complaint: FELL/PAIN UNDER LEFT ARM PIT ED Provider: Wilfred Wu Discharge Problem: Fracture, ribs, Fall, Fever, Tachycardia Patient Disposition: Admitted As Inpatient Discharge Instructions Interventions: ED Discharge Assessment Last Done: 02/22/20 17:19 Discharge Problem: Fracture, ribs Qualifiers: Encounter type: initial encounter Rib fracture type: multiple ribs Fracture type: closed Laterality: left Qualified Code(s): S22.42XA - Multiple fractures of ribs, left side, initial encounter for closed fracture Fall Qualifiers: Encounter type: initial encounter Qualified Code(s): W19.XXXA - Unspecified fall, initial encounter Fever Qualifiers: Fever type: unspecified Qualified Code(s): R50.9 - Fever, unspecified
--- NOTE | 2020-02-22 12:33 | XRay Report ---
SINGLE VIEW CHEST CLINICAL HISTORY: Sepsis. FINDINGS: An AP, portable, upright chest radiograph is compared to study dated 07/16/2018 and correlat ed with chest CT dated 01/08/2017. The heart is top normal for projection. The mediastinal contour is within normal limits. Chronic interstitial thickening is similar to previous. No airspace consolidati on or large pleural effusion is identified. There is mild bibasilar scarring/atelectasis. No pneumoth orax is seen. The skeletal structures are osteopenic. There are healed bilateral rib fractures. IMPRESSION: No active disease in the chest. ACT 112: Negative or not required by law. Electronically signed by: Ankit Lovell M.D. 02/22/2020 12:32 PM
[2020-02-22 12:59] LABS: Basophils # (auto) 0.01 K/uL (0-0.2); Basophils % (auto) 0.1 %; Hematocrit (blood only) 36.9 % (42-52); Hemoglobin 11.9 g/dL (14.0-18.0); Immature Granulocytes # (auto) 0.01 K/uL (0.00-0.02); Immature Granulocytes % (auto) 0.1 %; Lymphocytes # (auto) 0.72 K/uL (1.2-3.4); Lymphocytes % (auto) 10.7 %; Mean Corpuscular Hgb Conc 32.2 g/dL (32-36); Mean Platelet Volume 10.6 fL (7.4-10.4); Monocytes # (auto) 0.38 K/uL (0.11-0.59); Monocytes % (auto) 5.7 %; Neutrophils # (auto) 5.39 K/uL (1.4-6.5); Neutrophils % (auto) 80.4 %; Platelet Count 153 K/uL (130-400); RDW Coefficient of Variation 14.2 % (11.5-14.5); White Blood Count 6.71 K/uL (4.8-10.8)
--- NOTE | 2020-02-22 13:03 | XRay Report ---
XR foot RT min 3V routine CLINICAL HISTORY: Right foot pain. Great toe wound. COMPARISON: None FINDINGS: Tarsometatarsal joints are intact. Alignment of the right foot is anatomic. There is moder ate vascular calcification. There is an equivocal acute nondisplaced fracture within the lateral base of the distal phalanx of the right great toe. There is no evidence for osteomyelitis within the righ t foot. There is moderate mid foot osteoarthritis. Moderate plantar calcaneal spurring is noted. IMPRESSION: 1. Equivocal acute nondisplaced fracture within the lateral base of the distal phalanx of the right g reat toe. 2. No evidence for osteomyelitis within the right foot. ACT 112: Negative or not required by law. Electronically signed by: Ang Park M.D. 02/22/2020 1:02 PM
[2020-02-22 13:04] LABS: Appearance Urine Slightly Cloudy (Clear); Bilirubin Urine Negative (Negative); Blood Urine 1+ (Negative); Color Urine Yellow; Glucose Urine UA 2+ (Negative); Ketones Urine 3+ (Negative); Leukocyte Esterase Urine 1+ (Negative); Nitrite Urine Negative (Negative); Protein Urine 1+ (Negative); Specific Gravity Urine >= 1.030 (1.000-1.030); Urobilinogen Urine Negative (Negative); pH Urine 5.5 (4.5-7.5)
[2020-02-22 13:10] LABS: Epithelial Cell Urine >30 /lpf (0-5); RBC Urine >30 /hpf (0-4); WBC Urine >30 /hpf (0-5)
[2020-02-22 13:11] LABS: Bacteria Urine 2+ (Negative)
[2020-02-22 13:12] LABS: Partial Thromboplastin Ratio 0.9; Partial Thromboplastin Time 26.5 Seconds (21.0-31.0); Prothrombin Time 10.3 Seconds (9.0-12.0)
[2020-02-22 13:19] LABS: Alanine Aminotransferase 36 U/L (12-78); Albumin Level 3.6 gm/dl (3.4-5.0); Aspartate Aminotransferase 22 U/L (15-37); BUN Creatinine Ratio 20.9 (10-20); Blood Urea Nitrogen 21 mg/dl (7-18); Calcium 9.4 mg/dl (8.5-10.1); Carbon Dioxide 25 mmol/L (21-32); Chloride 107 mmol/L (98-107); Creatinine Clr Calc Pharmacy 80.2 ml/min; Est GFR (African American) 89.5; Est GFR (Non-African American) 77.3; Glucose 254 mg/dl (70-99); Magnesium 1.9 mg/dl (1.8-2.4); Potassium 4.2 mmol/L (3.5-5.1); Sodium 139 mmol/L (136-145)
--- NOTE | 2020-02-22 13:20 | CT Scan Report ---
HEAD CT NONCONTRAST CT DOSE: HISTORY: fall hit head TECHNIQUE: Multiaxial CT images of the head were performed without the use of intravenous contrast. A utomated exposure control was utilized for this study. A dose lowering technique was utilized adheri ng to the principles of ALARA. Comparison: Head CT 01/08/2017. Findings: The paranasal sinuses and mastoid air cells are clear. The calvarium and skull base are int act. There is no mass, hematoma, midline shift, acute infarct. White matter hypodensity is nonspecifi c but suggestive of microvascular ischemic change. The ventricles and sulci demonstrate mild age-rela louis involutional changes. Old punctate lacunar infarcts seen within the right basal ganglia, unchange d. Impression: No acute intracranial abnormality. Atrophy and microvascular ischemic changes. ACT 112: Negative or not required by law. Electronically signed by: Michael Cline M.D. 02/22/2020 1:19 PM
--- NOTE | 2020-02-22 13:21 | CT Scan Report ---
CT OF THE CERVICAL SPINE CLINICAL HISTORY: Neck pain status post trauma COMPARISON STUDY: No previous studies for comparison. CT DOSE: 3877.13 mGy.cm TECHNIQUE: CT scan of the cervical spine was performed from the skull base to the thoracic inlet. Sabina ges are reviewed in the axial, sagittal, and coronal planes. IV contrast was not administered for thi s examination. A dose lowering technique was utilized adhering to the principles of ALARA. FINDINGS: The visualized portions of the lung apices reveal no evidence of pneumothorax. The prevertebral soft tissues are normal. No fractures or subluxations are visualized. There are multilevel degenerative changes IMPRESSION: No evidence of acute fracture or traumatic subluxation. ACT 112: Negative or not required by law. Electronically signed by: Masoud Figueroa M.D. 02/22/2020 1:19 PM
[2020-02-22 13:24] LABS: Alkaline Phosphatase 109 U/L (45-117); Bilirubin,Total 0.6 mg/dl (0.2-1); Globulin 3.5 gm/dl (2.5-4.0); Total Protein 7.1 gm/dl (6.4-8.2); Troponin I < 0.015 ng/ml (0-0.045)
--- NOTE | 2020-02-22 13:30 | CT Scan Report ---
CT SCAN OF THE CHEST WITHOUT IV CONTRAST CLINICAL HISTORY: Recent fall. Left-sided chest wall pain. COMPARISON STUDY: Chest x-ray dated 02/22/2020. Chest CT dated 01/08/2017. TECHNIQUE: CT scan of the thorax was performed from the thoracic inlet to the upper abdomen. Images are reviewed in the axial, sagittal, and coronal planes. IV contrast was not administered for this ex amination as per the referring clinician. A dose lowering technique was utilized adhering to the caitlin reyes of RAMIRO. FINDINGS: Thyroid: Imaged atrophic and heterogeneous. Thoracic aorta: The thoracic aorta is normal in caliber and demonstrates standard 3-vessel arch anato my. Heart: The heart is top normal in size noting trace pericardial effusion. The coronary arteries are d ensely calcified. Lungs and pleural spaces: Trace pleural fluid is seen at the left lung base. No airspace consolidatio n is identified typical for pneumonia. There is no pneumothorax. There are foci of scarring/atelectas is seen at both lung bases. The trachea and central airways are clear. There are numerous (greater th an 10) tiny pulmonary nodules scattered throughout both lungs. The largest nodules measure up to 3 mm as seen in the right lower lobe on image #143 and at the left apex on image #38. These have not appr eciably changed in size or distribution as compared 01/08/2017 and are of low suspicion. Mediastinum: There is no mediastinal lymphadenopathy. Andree: Not well assessed without IV contrast. Axillae: There is no axillary lymphadenopathy. Upper abdomen: There is a small hiatal hernia. A 3 mm nonobstructing calculus is noted in the left ki dney. Skeletal structures: The skeletal structures are osteopenic. Degenerative change and mild hyperkyphos is is seen in the thoracic spine. No lytic or blastic bony lesions are seen. There are numerous chron ic/healed bilateral rib fractures. There are acute left lateral 9th and 10th rib fractures. IMPRESSION: 1. Acute left-sided rib fractures as above. 2. Trace pleural fluid is seen at the left lung base. 3. There is no airspace consolidation typical for pneumonia or pneumothorax. 4. Advanced coronary artery calcification. 5. Left-sided nephrolithiasis. 6. Scattered low suspicion pulmonary nodules measuring up to 3 mm have not significantly changed dati ng back to 01/08/2017. These are of doubtful significance. 7. Additional findings as above. ACT 112: Negative or not required by law. Electronically signed by: Ankit Lovell M.D. 02/22/2020 1:28 PM
--- NOTE | 2020-02-22 13:34 | CT Scan Report ---
CT SCAN OF THE ABDOMEN AND PELVIS WITHOUT CONTRAST CLINICAL HISTORY: Left-sided abdominal pain status post trauma. COMPARISON STUDY: January 2017 TECHNIQUE: CT scan of the abdomen and pelvis was performed from the lung bases to the proximal femurs . Images are reviewed in the axial, sagittal, and coronal planes. IV contrast was not administered fo r this examination. A dose lowering technique was utilized adhering to the principles of ALARA. CT DOSE: FINDINGS: Lower chest: There are coronary artery calcifications. No pneumothorax is visualized. There is basila r atelectasis. There are no pleural effusions. Liver: The unenhanced liver is normal in size, contour, and attenuation. There is no intrahepatic romel iary ductal dilatation. Gallbladder: Unremarkable. Spleen: Normal in size and attenuation. Pancreas: Unremarkable. Adrenal glands: Unremarkable. Kidneys: There is a nonobstructive 2 mm left renal calculus. There is no hydronephrosis. No ureteral or bladder calculi are visualized. Bowel: There are no transition zones indicate bowel obstruction. There is no evidence of acute divert iculitis. The appendix appears normal. Peritoneum: There is a fat-containing umbilical hernia. There is a 3.5 cm density within the hernia s ac possibly representing loculated fluid. Vasculature: The abdominal aorta is normal in course and caliber. Adenopathy: None. Pelvic viscera: There is mild prostatomegaly Skeletal structures: There are nondisplaced fractures of the left ninth and 10th ribs. IMPRESSION: 1. Nondisplaced fractures of the left ninth and 10th ribs 2. No evidence of intra-abdominal or pelvic injury given the limitations of a noncontrast study. 3. Nonobstructing 2 mm left renal calculus ACT 112: Negative or not required by law. Electronically signed by: Masoud Figueroa M.D. 02/22/2020 1:32 PM
[2020-02-22] MEDS ORDERED: SODIUM CHLORIDE 0.9% 1000ML 1,000 ML IV ONE (13:56)
[2020-02-22] MEDS ORDERED: ACETAMINOPHEN 325 MG TAB PO STA (13:56)
[2020-02-22] MEDS ORDERED: cefTRIAXone SODIUM 1,000 MG/50 ML BAG IV STA ×2 (13:56→15:59)
[2020-02-22] MEDS ORDERED: MoRPHine SULFATE 4 MG/ML 1 ML CARP\\VIAL IV STA (14:22)
--- NOTE | 2020-02-22 15:08 | History & Physical Report ---
Date of Service February 22, 2020 Assessment & Plan (1) Rib fractures: left 9th and 10th rib fractures, s/p fall this past weekend. lidoderm patches. norco prn. toradol prn. k-pad ordered. check 25-OH vit D in am. fortunately no complicating pneumothorax or hemothorax. incentive spirometry. (2) Fracture of right great toe: s/p fall this weekend. consulted Dr Cope for assessment and recommendations. in meantime - since nailbed is traumatized (apparently had had a blister that he popped yesterday) - bactroban ointment BID, kerlex dressing, and stiff post-op surgical shoe for ambulation. TDaP as below. (3) Fall: x 2 -- one on Saturday, one on Saturday. accidental falls. however, diabetic neuropathy likely contributes to balance issues and gait instability. brewing UTI may have contributed as well. PT, OT. fall precautions. (4) UTI (urinary tract infection): febrile at presentation from such. rocephin 2gm daily. follow blood and urine cx's. NO symptoms/signs of COVID-19 -- defer on testing for now. (5) Type 1 diabetes mellitus with complication: long-standing Type 1 diabetic going back to his 20s. reports frequent nocturnal lows -- cut lantus at HS from 40 units to 35 units. novolog correction and carb coverage. pharmacy consult for glycemic control. check a1c am. bsgs ac/hs. hold metformin. (6) Proliferative diabetic retinopathy associated with type 1 diabetes mellitus: patient is legally blind which likely enhances fall risk as well (7) Vitamin D deficiency: history of such. recheck 25-OH vit D level am. (8) Hypothyroidism: TSH 11/2019 wnl. cont synthroid. (9) Hypertension: continue KYLE. adjust as needed. (10) Dyslipidemia: cont statin. (11) Balance problem: diabetic peripheral neuropathy, blindness, etc likely all contribute to gait and ambulatory dysfunction with increased fall risk. PT/OT. (12) Vaccine for iiqxevtrgj-[id number], combined: patient's first fall involved hitting a large metal trailer for his car. multiple abrasions, etc from such. last TDaP - unknown. will give Adacel booster x 1. (13) DVT prophylaxis: lovenox daily NS x 1 liter repeat labs in am History of Present Illness Chief Complaint: falls Primary Care Provider: Addy Dewitt MD 69yo male with long-standing Type 1 DM who presents with multiple falls. First fall was Saturday, and then he had another on Saturday. On Saturday he was working on a metal trailer for his vehicle and fell forward into the trailer striking his head. He also struck his right great toe and right knee on Saturday. He denies syncope with Saturday's event - it was simply an accident. On Saturday he was working again on the trailer and tripped over an extension cord. He went to the ground on his porch. The left side of his body took the brunt of the fall on Saturday. No loss of consciousness. No head injury. Had mild pain over the left chest on Saturday pm. This pain got worse on Saturday, and then today it was severe. In the ER today he was noted to have a low-grade fever. No rigors/chills, loss of taste or smell, sore throat, nasal congestion, cough or dyspnea. No abdominal pain, nausea or emesis. No diarrhea. No dysuria, foul-smelling urine or incontinence. No rashes. Last Td booster? Denies sick contacts or travel outside the immediate area over the last 2 weeks. Has 2 daughters neither of which have been ill. 1 of the daughters visited with he and his this past . DM - lantus 40 units HS; 6-8 units of humalog with meals. He has a continuous glucose monitor. He reports lability in his sugars - low of 45 recently, and highs into the 300 range. Lows are typically about 0200/0300 in the middle of the night. His continuous monitor alarms waking him up. Denies feeling sweaty, etc about the time of the lows. Drinks OJ to get the sugars up. Allergies Allergy/AdvReac Type Severity Reaction Status Date / Time Iodinated Contrast Media Allergy Unknown UNKNOWN Verified 02/22/20 13:18 REACTION iodine Allergy Unknown TOPICAL Verified 02/22/20 13:18 REDNESS AND EDEMA Home Medications Home Medications Medication Instructions Recorded Confirmed Type Humalog U-100 Insulin 15 sliding scale dose SUBCUT UD 07/08/18 02/22/20 History Ocuvite Adult 50 Plus 1 cap PO QAM 07/08/18 02/22/20 History Simbrinza 1 drp OPHTHALMIC (EYE) BID 07/08/18 02/22/20 History ibuprofen [Advil] 400 mg PO QID PRN 07/08/18 02/22/20 History multivitamin 1 tab PO QAM 07/08/18 02/22/20 History ammonium lactate 12 % topical cream 1 appln TOPICAL BID #1 gm 12/08/18 02/22/20 History aspirin 81 mg tablet,delayed 81 mg PO DAILY #30 tab 12/08/18 02/22/20 History release cholecalciferol (vitamin D3) 50 2,000 units PO DAILY 12/08/18 02/22/20 History mcg (2,000 unit) capsule cyanocobalamin (vitamin B-12) 2,500 mcg PO DAILY tab 12/08/18 02/22/20 History 2,500 mcg tablet escitalopram oxalate 20 mg tablet 20 mg PO DAILY #90 tab 04/16/19 02/22/20 Rx ramipril 5 mg capsule 5 mg PO DAILY #90 cap 04/16/19 02/22/20 Rx levothyroxine 175 mcg tablet 175 mcg PO DAILY #90 tab 08/13/19 02/22/20 Rx Lantus Solostar U-100 Insulin 100 See Rx Instructions SUBCUT HS #45 09/02/19 02/22/20 Rx unit/mL (3 mL) subcutaneous pen ml NS metformin 500 mg tablet,extended 1,000 mg PO DAILY #180 tab 10/26/19 02/22/20 Rx release 24hr atorvastatin 40 mg tablet 80 mg PO QPM #90 tab 12/02/19 02/22/20 Rx diclofenac sodium 1 % topical gel 4 gm TOP QID #100 gm 12/16/19 02/22/20 Rx Past Med/Surg History Medical History (Updated 02/22/20 @ 18:25 by Wilfred Wu DO) Altered level of consciousness Anemia CHRONIC; BASELINE HGB 11-12 RANGE PER CHART REVIEW Anemia of chronic disease Balance problem Chronic pain of right knee Depression Diabetes mellitus IDDM "TYPE 1" PER ENDOCRINE (DIAGNOSED IN LATE , ON INSULIN WITHIN 2 YEARS) Diabetes mellitus type 1, uncontrolled Diabetic peripheral neuropathy associated with type 1 diabetes mellitus Dyslipidemia Glaucoma Selma's thyroiditis Hypertension Hypoglycemia unawareness in type 1 diabetes mellitus Hypothyroidism Legally blind Loss of sensation Obesity Osteoarthritis Personal history of diabetic foot ulcer Proliferative diabetic retinopathy associated with type 1 diabetes mellitus Reactive depression (situational) Rib fractures Sensorineural hearing loss of both ears Temporomandibular joint disorder NO LOCKING Type 1 diabetes mellitus with complication Vitamin D deficiency Surgical History (Updated 02/22/20 @ 16:13 by Kiran dOonnell) H/O colonoscopy H/O cystoscopy H/O hand surgery RIGHT THUMB History of cataract surgery R/L History of tonsillectomy History of tooth extraction Hx of foot surgery DEBRIDEMENT RIGHT FOOT Family History (Updated 02/22/20 @ 15:25 by Kiran Odonnell) Father , age 84 - pulmonary embolism after hip surgery Pulmonary embolism Unknown Leukemia Diabetes Cancer Hypertension Mother , age 98 - biliary sepsis/cholecystitis? No problems noted. Denies family history of Ovarian cancer Prostate cancer Myocardial infarction Breast cancer Colorectal cancer Stroke Social History Smoking Status: Former smoker Tobacco Type: Cigarettes packs per day: 0.5; Years Smoked: 5; Second Hand Exposure: No; Hx Alcohol Use: No Hx Substance Use: No Preferred Language: Turkmen Communication Ability: Effective Communication Ability Comment: legally blind Visual Impairment: Severely Limited Hearing Ability: Normal Certified Dialysis Technician Required: No Beliefs That Will Affect Care: None marital status: Current Living Situation: Spouse Current Living Situation Comment: lives with in [place] current 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 status: 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 How many Children do You have: 2 How many Children do You have Comment: daughters Other Information That Helps Us Care for You: No Feels Safe at Home: Yes Safety Concerns: Feels Safe At This Time Childhood Exposure to Second-Hand Smoke: Yes caffeine: Yes Dental Care, Regularly: Yes Physical Activity Frequency: Does not Exercise Seatbelt Use: always Sunscreen Use: No Assistive Devices: Special Shoe Review of Systems Constitutional: no fever, no chills, no fatigue, no weakness, no anorexia and no weight loss Eyes: legally blind Ear, Nose, Mouth, Throat: no nasal congestion, no sore throat and no dysphagia Respiratory: + pain on inspiration; no cough and no dyspnea Cardiovascular: as per Subjective / HPI, + chest pain and + edema (worse in the am, improves at night ) Gastrointestinal: + constipation; no abdominal pain, no nausea, no vomiting and no blood in stools Genitourinary: no dysuria and no difficulty urinating Musculoskeletal: + back pain (low back pain ); no neck pain denies big toe pain Integumentary: no rash Neurologic: + loss of sensation (hands/feet ) Psychiatric: no depression Endocrine: no fatigue and no cold intolerance Hematologic / Lymphatic: no easy bleeding and no easy bruising Physical Exam Constitutional: no acute distress, not obese and no altered mental status wearing a vision-assisted device around his head; abrasion right forehead Eyes: + anicteric sclerae right pupil is larger than left pupil; slightly irregular b/l; reactive; lens implants b/l ENMT: external ear and nose normal, oropharynx normal Neck: trachea midline, no thyromegaly Respiratory: normal respiratory effort, lungs clear to auscultation Cardiovascular: Rate/Rhythm: regular rate and regular rhythm Heart Sounds: normal S1 and normal S2; no murmur Vessels: posterior tibial pulses present and dorsalis pedis pulses present; no JVD Extremities: + edema (trace b/l; firm ) Chest (Breasts): Additional Comments: tender to palpation over lateral left chest Gastrointestinal (Abdomen): Inspection/Auscultation: + abdomen distended (marked) and normal bowel sounds Percussion/Palpation: + hernia (umbilical ); abdomen nontender and no hepatosplenomegaly Musculoskeletal: scar over right knee, vertical; abrasion b/l anterior knees. right great toe with trauma to base of toe. ecchymoses present. nontender to palpation over the right great toe. no ulcerations of either foot. Skin: no rashes Trauma: + evidence of skin trauma (right greaet toe ) and + abrasion (b/l knees) Neurologic: deep tendon reflexes 2+ bilaterally (upper extremities; 1+ knees; absent achilles b/l ) and moves all extremities; no focal motor deficits Psychiatric: A+Ox3, euthymic affect Lymphatic: no cervical lymphadenopathy Results & Data Results & Data ([facility]) Vital Signs (Past 12 Hours) Vital Signs Temp Pulse Resp BP Pulse Ox 02/22/20 14:28 94 H 23 02/22/20 14:26 100 H 151/73 H 02/22/20 12:45 92 H 16 97 02/22/20 12:43 97 H 19 133/77 97 02/22/20 10:48 38.3 C H 103 H 20 171/77 H 95 Laboratory Results Laboratory Results - last 24 hr 02/22/20 02/22/20 02/22/20 12:48 12:48 12:48 WBC 6.71 RBC 4.10 L Hgb 11.9 L Hct 36.9 L MCV 90.0 MCH 29.0 MCHC 32.2 RDW Std Deviation 47.0 H RDW Coeff of Roland 14.2 Plt Count 153 MPV 10.6 H Immature Gran % (Auto) 0.1 Neut % (Auto) 80.4 Lymph % (Auto) 10.7 [place] % (Auto) 5.7 Eos % (Auto) 3.0 Baso % (Auto) 0.1 Neut # (Auto) 5.39 Lymph # (Auto) 0.72 L [place] # (Auto) 0.38 Eos # (Auto) 0.20 Baso # (Auto) 0.01 Immature Gran # (Auto) 0.01 PT 10.3 INR 1.0 APTT 26.5 PTT Ratio 0.9 Sodium 139 Potassium 4.2 Chloride 107 Carbon Dioxide 25 Anion Gap 7.0 BUN 21 H Creatinine 0.98 Est Cr Clr Drug Dosing 80.2 Est GFR ( Amer) 89.5 Est GFR (Non-Af Amer) 77.3 BUN/Creatinine Ratio 20.9 H Glucose 254 H Lactate Calcium 9.4 Magnesium 1.9 Total Bilirubin 0.6 AST 22 ALT 36 Alkaline Phosphatase 109 Troponin I < 0.015 Total Protein 7.1 Albumin 3.6 Globulin 3.5 Albumin/Globulin Ratio 1.0 Urine Color Urine Appearance Urine pH Ur Specific Edwards Urine Protein Urine Glucose (UA) Urine Ketones Urine Blood Urine Nitrite Urine Bilirubin Urine Urobilinogen Ur Leukocyte Esterase Urine RBC Urine WBC Ur Epithelial Cells Urine Bacteria 02/22/20 02/22/20 12:48 Unknown WBC RBC Hgb Hct MCV MCH MCHC RDW Std Deviation RDW Coeff of Roland Plt Count MPV Immature Gran % (Auto) Neut % (Auto) Lymph % (Auto) [place] % (Auto) Eos % (Auto) Baso % (Auto) Neut # (Auto) Lymph # (Auto) [place] # (Auto) Eos # (Auto) Baso # (Auto) Immature Gran # (Auto) PT INR APTT PTT Ratio Sodium Potassium Chloride Carbon Dioxide Anion Gap BUN Creatinine Est Cr Clr Drug Dosing Est GFR ( Amer) Est GFR (Non-Af Amer) BUN/Creatinine Ratio Glucose Lactate 2.0 Calcium Magnesium Total Bilirubin AST ALT Alkaline Phosphatase Troponin I Total Protein Albumin Globulin Albumin/Globulin Ratio Urine Color Yellow Urine Appearance Slightly Cloudy Urine pH 5.5 Ur Specific Edwards >= 1.030 Urine Protein 1+ H Urine Glucose (UA) 2+ H Urine Ketones 3+ H Urine Blood 1+ H Urine Nitrite Negative Urine Bilirubin Negative Urine Urobilinogen Negative Ur Leukocyte Esterase 1+ H Urine RBC >30 H Urine WBC >30 H Ur Epithelial Cells >30 H Urine Bacteria 2+ H Diagnostic Findings 1. CT chest: IMPRESSION: 1. Acute left-sided rib fractures as above. 2. Trace pleural fluid is seen at the left lung base. 3. There is no airspace consolidation typical for pneumonia or pneumothorax. 4. Advanced coronary artery calcification. 5. Left-sided nephrolithiasis. 6. Scattered low suspicion pulmonary nodules measuring up to 3 mm have not significantly changed dating back to 01/08/2017. These are of doubtful significance. 2. CT abd/pelvis: IMPRESSION: 1. Nondisplaced fractures of the left ninth and 10th ribs 2. No evidence of intra-abdominal or pelvic injury given the limitations of a noncontrast study. 3. Nonobstructing 2 mm left renal calculus 3. CT head: no acute pathology, ICH, or fracture. Old punctate lacunar infarcts seen within the right basal ganglia, unchanged. 4. right foot x-rays: IMPRESSION: 1. Equivocal acute nondisplaced fracture within the lateral base of the distal phalanx of the right great toe. 2. No evidence for osteomyelitis within the right foot. 5. cervical spine CT: IMPRESSION: No evidence of acute fracture or traumatic subluxation. 6. chest x-ray: healed b/l rib fractures. Chronic interstitial thickening. No acute infiltrates. 7. EKG - my reading - NSR, no ST changes, mildly prolonged QTc. Code Status & VTE Plan Code Status full code VTE Prophylaxis Plan VTE Prophylaxis will be ordered: Yes PG Care Time/CCT Total # of Minutes Spent Total Time Spent with Patient: Total time spent is greater than 50% in coordination of care (as documented) at patient's floor/unit and/or counseling patient: Coding Level of Care Code 10731 Initial Inpt Care Lvl 3 Diagnoses Rib fractures S22.42XA Encounter type: initial encounter Fracture type: closed Laterality: left Rib fracture type: multiple ribs Fracture of right great toe S92.424A Encounter type: initial encounter Fracture alignment: nondisplaced Fracture type: closed Phalanx: distal Fall W19.XXXA Encounter type: initial encounter UTI (urinary tract infection) N30.00 Hematuria presence: without hematuria Urinary tract infection type: acute cystitis Type 1 diabetes mellitus with complication E10.8 Proliferative diabetic retinopathy associated with type 1 diabetes mellitus E10.3599 Laterality: unspecified laterality Proliferative retinopathy type: unspecified Vitamin D deficiency E55.9 Hypothyroidism E03.9 Hypothyroidism type: acquired Hypertension I10 Hypertension type: essential hypertension Dyslipidemia E78.5 Balance problem R26.89 Vaccine for [id number], combined Z23 DVT prophylaxis Z29.9 (1) UTI (urinary tract infection) Hematuria presence: without hematuria Urinary tract infection type: acute cystitis Qualified Code(s): N30.00 - Acute cystitis without hematuria (2) Rib fractures Encounter type: initial encounter Fracture type: closed Laterality: left Rib fracture type: multiple ribs Qualified Code(s): S22.42XA - Multiple fractures of ribs, left side, initial encounter for closed fracture (3) Hypothyroidism Hypothyroidism type: acquired Qualified Code(s): E03.9 - Hypothyroidism, unspecified (4) Proliferative diabetic retinopathy associated with type 1 diabetes mellitus Laterality: unspecified laterality Proliferative retinopathy type: unspecified Qualified Code(s): E10.3599 - Type 1 diabetes mellitus with prolife rative diabetic retinopathy without macular edema, unspecified eye (5) Fracture of right great toe Encounter type: initial encounter Fracture alignment: nondisplaced Fracture type: closed Phalanx: distal Qualified Code(s): S92.424A - Nondisplaced fracture of distal phalanx of right great toe, initial encounter for closed fracture (6) Hypertension Hypertension type: essential hypertension Qualified Code(s): I10 - Essential (primary) hypertension (7) Fall Encounter type: initial encounter Qualified Code(s): W19.XXXA - Unspecified fall, initial encounter
[2020-02-22] MEDS ORDERED: PHARMACY GLYCEMIC MGMT CONSULT STA (16:04)
[2020-02-22] MEDS ORDERED: SODIUM CHLORIDE 0.9% 1000ML 1,000 ML IV SCH (17:19)
[2020-02-22] MEDS ORDERED: ONDANSETRON INJ 2 MG/ML 2 ML VIAL IV PRN (17:19)
[2020-02-22] MEDS ORDERED: ACETAMINOPHEN 325 MG TAB PO PRN (17:19)
[2020-02-22] MEDS ORDERED: KETOROLAC TROMETHAMINE 15 MG/ML VIAL IV PRN (17:19)
[2020-02-22] MEDS: DICLOFENAC SOD 1% GEL 100 GM TUBE EXT SCH ×2 (18:38→20:17)
[2020-02-22] MEDS: LACTOBACILLUS ACIDOPHILUS (FLORANEX) TAB PO SCH (18:39)
[2020-02-22] MEDS: LIDOCAINE 5% 1 PATCH TD SCH (18:41)
[2020-02-22] MEDS: INSULIN ASPART 100 UNITS/ML 3 ML PEN SC SCH ×2 (18:42→20:14)
[2020-02-22] MEDS ORDERED: PHARMACY GLYCEMIC MGMT CONSULT PRN (19:24)
[2020-02-22] MEDS ORDERED: DIPHTHERIA/TETANUS/PERTUSSIS 0.5 ML SYR/VIAL IM ONE (20:00)
[2020-02-22] MEDS ORDERED: ENOXAPARIN INJ 40 MG/0.4 ML SYR SQ SCH (20:00)
[2020-02-22] MEDS: MUPIROCIN 2% OINT 22 GM TUBE EXT SCH (20:12)
[2020-02-22] MEDS: AMMONIUM LACTATE 12% LOTION 225 GM BTL EXT SCH (20:12)
[2020-02-22] MEDS ORDERED: ATORVASTATIN 40 MG TAB PO SCH (21:00)
[2020-02-22] MEDS ORDERED: INSULIN GLARGINE SOLOSTAR 100 UNITS/ML 3 ML PEN SQ SCH ×2 (21:00)
--- NOTE | 2020-02-22 21:54 | Pharmacy Report ---
Pharmacy Glycemic Short Note 2 - Date of Service February 22, 2020 - Glycemic Short BSG Results (Last 24 hours): 02/22/20 02/22/20 02/22/20 12:48 17:22 20:12 Glucose 254 H POC Glucose 200 H 279 H OUTPATIENT ANTIDIABETIC REGIMEN: * Lantus 30-40 units qhs * Humalog Sliding scake ASSESSMENT: * Patient admitted after multiple falls since Saturday. He also presents with acute cystitis. * He has a continuous glucose monitor and reports fluctuations (low 45/high 300s) with his blood sugars recently. PLAN FOR INPATIENT GLYCEMIC CONTROL: * Hold outpatient oral diabetes medications * Basal insulin * Lantus 30 units SQ HS * Bolus insulin * NovoLog per scale ACHS or Q6hrs while NPO * Goal Range: Low 120 mg/dL - High 160 mg/dL * Correction Factor: 20 mg/dL/unit * Nutritional / Prandial insulin per carb ratio of 1 unit per 7 grams CHO consumed PLAN FOR DISCHARGE: *
[2020-02-22] MEDS: HYDROCODONE/ACETAMOPHEN 5/325MG TAB PO PRN (23:54)
[2020-02-23] MEDS ORDERED: INSULIN ASPART 100 UNITS/ML 3 ML PEN SC SCH
[2020-02-23] MEDS ORDERED: HydrALAZINE HCL 20 MG/ML VIAL IV PRN (03:31)
[2020-02-23] MEDS ORDERED: LEVOTHYROXINE SODIUM 175 MCG TABLET PO SCH (06:30)
[2020-02-23] MEDS: HYDROCODONE/ACETAMOPHEN 5/325MG TAB PO PRN ×2 (06:36→12:54)
--- NOTE | 2020-02-23 06:48 | Electrocardiogram Report ---
Test Reason : Blood Pressure : / mmHG Vent. Rate : 099 BPM Atrial Rate : 099 BPM P-R Int : 178 ms QRS Dur : 092 ms QT Int : 378 ms P-R-T Axes : 063 036 052 degrees QTc Int : 485 ms Sinus rhythm with occasional Premature ventricular complexes Prolonged QT Abnormal ECG When compared with ECG of 16-JUL-2018 08:28, Premature ventricular complexes are now Present Confirmed by Xavier Vasquez ([id number]) on 02/23/2020 6:48:19 AM Referred By: REFERRED SELF Confirmed By:Xavier Vasquez
[2020-02-23 08:18] LABS: BUN Creatinine Ratio 18.4 (10-20); Creatinine Clr Calc Pharmacy 98.2 ml/min; Est GFR (African American) 104.2; Est GFR (Non-African American) 89.9
[2020-02-23] MEDS: LIDOCAINE 5% 1 PATCH TD SCH (08:34)
[2020-02-23] MEDS: AMMONIUM LACTATE 12% LOTION 225 GM BTL EXT SCH (08:35)
[2020-02-23] MEDS: DICLOFENAC SOD 1% GEL 100 GM TUBE EXT SCH ×2 (08:36→12:49)
[2020-02-23] MEDS: LACTOBACILLUS ACIDOPHILUS (FLORANEX) TAB PO SCH ×2 (08:36→12:48)
[2020-02-23] MEDS: MUPIROCIN 2% OINT 22 GM TUBE EXT SCH (08:36)
[2020-02-23] MEDS: INSULIN ASPART 100 UNITS/ML 3 ML PEN SC SCH ×2 (08:38→12:49)
[2020-02-23 09:00] LABS: Estimated Average Glucose 180 mg/dl; Hemoglobin A1C 7.9 % (4.5-5.6)
[2020-02-23] MEDS ORDERED: MULTIVITAMIN TAB PO SCH (09:00)
[2020-02-23] MEDS ORDERED: ESCITALOPRAM OXALATE 20 MG TAB PO SCH (09:00)
[2020-02-23] MEDS ORDERED: ENALAPRIL MALEATE 10 MG TAB PO SCH (09:00)
[2020-02-23] MEDS ORDERED: cefTRIAXone SODIUM 2,000 MG in DEXTROSE 5% 50 ML IV SCH (09:00)
[2020-02-23] MEDS ORDERED: CEROVITE ADV FORMULA TAB PO SCH (09:00)
[2020-02-23] MEDS ORDERED: ASPIRIN 81 MG ECTAB PO SCH (09:00)
[2020-02-23] MEDS ORDERED: SENNA 8.6 MG TAB PO SCH (09:00)
[2020-02-23] MEDS ORDERED: CYANOCOBALAMIN (VITAMIN B-12) 2,500 MCG TAB.SUBL SL SCH (09:00)
[2020-02-23] MEDS ORDERED: POLYETHYLENE (MIRALAX) 17 GM PACK PO SCH (09:00)
[2020-02-23] MEDS ORDERED: CHOLECALCIFEROL 1,000 UNITS 25 MCG TAB PO SCH ×2 (09:00)
--- NOTE | 2020-02-23 12:23 | Pharmacy Report ---
Pharmacy Glycemic Short Note 2 - Date of Service February 23, 2020 - Glycemic Short BSG Results (Last 24 hours): 02/22/20 02/22/20 02/22/20 12:48 17:22 20:12 Glucose 254 H POC Glucose 200 H 279 H 02/22/20 02/23/20 02/23/20 23:57 06:49 07:33 Glucose 135 H POC Glucose 75 129 H 02/23/20 11:35 Glucose POC Glucose 164 H OUTPATIENT ANTIDIABETIC REGIMEN: * Lantus 30-40 units qhs * Humalog Sliding scale * Metformin ASSESSMENT: 02/22 * Per H&P - long-standing Type 1 diabetic going back to his 20s. Patient reports frequent nocturnal lows. 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 Will add a scale to decrease dose if BSG on the lower side, but only a very mild reduction due to T1DM and AM fasing in goal range * Will loosen Novolog parameters based on estimation for a current basal dose of 30 units 02/21 * Patient admitted after multiple falls since Saturday. He also presents with acute cystitis. * He has a continuous glucose monitor and reports fluctuations (low 45/high 300s) with his blood sugars recently. PLAN FOR INPATIENT GLYCEMIC CONTROL: * Hold outpatient oral diabetes medications * Basal insulin * Lantus 28-30 units SQ HS * Bolus insulin * NovoLog per scale ACHS or Q6hrs while NPO * Goal Range: Low 120 mg/dL - High 150 mg/dL * Correction Factor: 25 mg/dL/unit * Nutritional / Prandial insulin per carb ratio of 1 unit per 8 grams CHO consumed
--- NOTE | 2020-02-23 12:59 | Podiatry Consultation ---
Date of Consultation February 23, 2020 Assessment & Plan (1) Diabetic nephropathy associated with type 1 diabetes mellitus: (2) Legally blind: (3) Toe fracture, right: History of Present Illness Attending Physician: Kiran Odonnell Patient is a very pleasant 69 year old diabetic male seen at bedside today due to an acute non displaced fracture of the right distal phalanx. Patient has a dressing over the toe from wound care due to a blister present dorsally, otherwise toe is stable. Patient is also in need of diabetic foot care and a new celery packer. Allergies Allergy/AdvReac Type Severity Reaction Status Date / Time Iodinated Contrast Media Allergy Unknown UNKNOWN Verified 02/22/20 13:18 REACTION iodine Allergy Unknown TOPICAL Verified 02/22/20 13:18 REDNESS AND EDEMA Home Medications Home Medications Medication Instructions Recorded Confirmed Type Humalog U-100 Insulin 15 sliding scale dose SUBCUT UD 07/08/18 02/22/20 History Ocuvite Adult 50 Plus 1 cap PO QAM 07/08/18 02/22/20 History Simbrinza 1 drp OPHTHALMIC (EYE) BID 07/08/18 02/22/20 History ibuprofen [Advil] 400 mg PO QID PRN 07/08/18 02/22/20 History multivitamin 1 tab PO QAM 07/08/18 02/22/20 History ammonium lactate 12 % topical cream 1 appln TOPICAL BID #1 gm 12/08/18 02/22/20 History aspirin 81 mg tablet,delayed 81 mg PO DAILY #30 tab 12/08/18 02/22/20 History release cholecalciferol (vitamin D3) 50 2,000 units PO DAILY 12/08/18 02/22/20 History mcg (2,000 unit) capsule cyanocobalamin (vitamin B-12) 2,500 mcg PO DAILY tab 12/08/18 02/22/20 History 2,500 mcg tablet escitalopram oxalate 20 mg tablet 20 mg PO DAILY #90 tab 04/16/19 02/22/20 Rx ramipril 5 mg capsule 5 mg PO DAILY #90 cap 04/16/19 02/22/20 Rx levothyroxine 175 mcg tablet 175 mcg PO DAILY #90 tab 08/13/19 02/22/20 Rx Lantus Solostar U-100 Insulin 100 See Rx Instructions SUBCUT HS #45 09/02/19 02/22/20 Rx unit/mL (3 mL) subcutaneous pen ml NS metformin 500 mg tablet,extended 1,000 mg PO DAILY #180 tab 10/26/19 02/22/20 Rx release 24hr atorvastatin 40 mg tablet 80 mg PO QPM #90 tab 12/02/19 02/22/20 Rx diclofenac sodium 1 % topical gel 4 gm TOP QID #100 gm 12/16/19 02/22/20 Rx Patient History Medical History Altered level of consciousness Anemia CHRONIC; BASELINE HGB 11-12 RANGE PER CHART REVIEW Anemia of chronic disease Balance problem Chronic pain of right knee Depression Diabetes mellitus IDDM "TYPE 1" PER ENDOCRINE (DIAGNOSED IN LATE , ON INSULIN WITHIN 2 YEARS) Diabetes mellitus type 1, uncontrolled Diabetic peripheral neuropathy associated with type 1 diabetes mellitus Dyslipidemia Glaucoma Selma's thyroiditis Hypertension Hypoglycemia unawareness in type 1 diabetes mellitus Hypothyroidism Legally blind Loss of sensation Obesity Osteoarthritis Personal history of diabetic foot ulcer Proliferative diabetic retinopathy associated with type 1 diabetes mellitus Reactive depression (situational) Rib fractures Sensorineural hearing loss of both ears Temporomandibular joint disorder NO LOCKING Type 1 diabetes mellitus with complication Vitamin D deficiency Surgical History H/O colonoscopy H/O cystoscopy H/O hand surgery RIGHT THUMB History of cataract surgery R/L History of tonsillectomy History of tooth extraction Hx of foot surgery DEBRIDEMENT RIGHT FOOT Family History Father , age 84 - pulmonary embolism after hip surgery Pulmonary embolism Unknown Leukemia Diabetes Cancer Hypertension Mother , age 98 - biliary sepsis/cholecystitis? No problems noted. Denies family history of Ovarian cancer Prostate cancer Myocardial infarction Breast cancer Colorectal cancer Stroke Social History Smoking Status: Former smoker Tobacco Type: Cigarettes packs per day: 0.5; Years Smoked: 5; Second Hand Exposure: No; Hx Alcohol Use: No Hx Substance Use: No Preferred Language: Kazakh Communication Ability: Effective Communication Ability Comment: legally blind Visual Impairment: Severely Limited Hearing Ability: Normal Weather Teacher Required: No Beliefs That Will Affect Care: None marital status: Current Living Situation: Spouse Current Living Situation Comment: lives with in [place] current 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 status: 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 How many Children do You have: 2 How many Children do You have Comment: daughters Other Information That Helps Us Care for You: No Feels Safe at Home: Yes Safety Concerns: Feels Safe At This Time Childhood Exposure to Second-Hand Smoke: Yes caffeine: Yes Dental Care, Regularly: Yes Physical Activity Frequency: Does not Exercise Seatbelt Use: always Sunscreen Use: No Assistive Devices: Special Shoe Review of Systems Review of Systems: All systems reviewed & are unremarkable except as noted in HPI & below Physical Exam Physical Exam: right hallux with blister present at the base of toenail, there is some mild swelling present but not severe, patient has neuropathy and has no sensation present. pedal pulses difficult to palpate secondary to swelling. wound care applying allyven foam dressing over the toe. No fluctuance of ascending erythema noted and WBC is within normal limits. Patient was recommended to use the surgical shoe when he is in his house, and to use a stiff soled shoe like his diabetic shoe for ambulation bc he is a fall risk and felt unstable in the surgical shoe. Patient will f/u with me 1 week after d/c in my office and I will continue to treat him for his diabetic foot care. Results & Data ([facility]) Vital Signs (Past 12 Hours) Vital Signs Temp Pulse Pulse Resp BP Pulse Ox 02/23/20 11:09 37.2 C 89 16 175/69 H 96 02/23/20 08:00 73 02/23/20 07:22 36.7 C 76 16 153/71 H 96 02/23/20 04:14 36.5 C 77 18 175/64 H 97
[2020-02-23 14:44] LABS: Appearance Urine Clear (Clear); Bilirubin Urine Negative (Negative); Blood Urine Negative (Negative); Color Urine Yellow; Glucose Urine UA 2+ (Negative); Ketones Urine 1+ (Negative); Leukocyte Esterase Urine Negative (Negative); Nitrite Urine Negative (Negative); Protein Urine Negative (Negative); Specific Gravity Urine 1.009 (1.000-1.030); Urobilinogen Urine Negative (Negative); pH Urine 6.5 (4.5-7.5)
--- NOTE | 2020-02-23 16:01 | Discharge Summary ---
Date of Service date of admission - February 22, 2020 date of discharge - February 23, 2020 Admission HPI Per Admitting Provider 69yo male with long-standing Type 1 DM who presents with multiple falls. First fall was Saturday, and then he had another on Saturday. On Saturday he was working on a metal trailer for his vehicle and fell forward into the trailer striking his head. He also struck his right great toe and right knee on Saturday. He denies syncope with Saturday's event - it was simply an accident. On Saturday he was working again on the trailer and tripped over an extension cord. He went to the ground on his porch. The left side of his body took the brunt of the fall on Saturday. No loss of consciousness. No head injury. Had mild pain over the left chest on Saturday pm. This pain got worse on Saturday, and then today it was severe. In the ER today he was noted to have a low-grade fever. No rigors/chills, loss of taste or smell, sore throat, nasal congestion, cough or dyspnea. No abdominal pain, nausea or emesis. No diarrhea. No dysuria, foul-smelling urine or incontinence. No rashes. Last Td booster? Denies sick contacts or travel outside the immediate area over the last 2 weeks. Has 2 daughters neither of which have been ill. 1 of the daughters visited with he and his this past . DM - lantus 40 units HS; 6-8 units of humalog with meals. He has a continuous glucose monitor. He reports lability in his sugars - low of 45 recently, and highs into the 300 range. Lows are typically about 0200/0300 in the middle of the night. His continuous monitor alarms waking him up. Denies feeling sweaty, etc about the time of the lows. Drinks OJ to get the sugars up. Principal Diagnosis 1. left-sided rib fractures and right great toe fracture 2nd to fall 2. likely UTI Discharge Exam Constitutional + obese; no acute distress and no altered mental status ENMT external ear and nose normal, oropharynx normal Neck trachea midline, no thyromegaly Respiratory normal respiratory effort, lungs clear to auscultation Cardiovascular Rate/Rhythm: regular rate and regular rhythm Heart Sounds: normal S1 and normal S2; no murmur Vessels: posterior tibial pulses present and dorsalis pedis pulses present; no JVD Extremities: + edema (trace b/l; firm ) Gastrointestinal (Abdomen) Inspection/Auscultation: + abdomen distended (similar to admission exam ) and normal bowel sounds Percussion/Palpation: + hernia (umbilical - reducible ); abdomen nontender and no hepatosplenomegaly Skin no rashes Trauma: + evidence of skin trauma (right great toe - nailbed area) and + abrasion (b/l knees, right forehead ) Neurologic moves all extremities; no focal motor deficits Psychiatric A+Ox3, euthymic affect Discharge Data Allergies Allergy/AdvReac Type Severity Reaction Status Date / Time Iodinated Contrast Media Allergy Unknown UNKNOWN Verified 02/22/20 13:18 REACTION iodine Allergy Unknown TOPICAL Verified 02/22/20 13:18 REDNESS AND EDEMA Vaccinations TDaP (Adacel) x 1 -- 02/22/2020 Consultations Podiatry - Mesha Cope DPM PT, OT Wound Care Ordered Studies 02/22/20 11:55 CT cervical spine wo con Stat - no evidence of fracture or subluxation. CT head/brain wo con Stat - Findings: The paranasal sinuses and mastoid air cells are clear. The calvarium and skull base are intact. There is no mass, hematoma, midline shift, acute infarct. White matter hypodensity is nonspecific but suggestive of microvascular ischemic change. The ventricles and sulci demonstrate mild age-related involutional changes. Old punctate lacunar infarcts seen within the right basal ganglia, unchanged. 02/22/20 11:59 CT abd pelvis wo con Stat - IMPRESSION: 1. Nondisplaced fractures of the left ninth and 10th ribs 2. No evidence of intra-abdominal or pelvic injury given the limitations of a noncontrast study. 3. Nonobstructing 2 mm left renal calculus CT chest wo con Stat - IMPRESSION: 1. Acute left-sided rib fractures as above. 2. Trace pleural fluid is seen at the left lung base. 3. There is no airspace consolidation typical for pneumonia or pneumothorax. 4. Advanced coronary artery calcification. 5. Left-sided nephrolithiasis. 6. Scattered low suspicion pulmonary nodules measuring up to 3 mm have not significantly changed dating back to 01/08/2017. These are of doubtful significance. Hospital Course (1) Rib fractures: left 9th and 10th rib fractures, s/p fall several days prior to admission. fortunately no complicating pneumothorax or hemothorax. lidoderm patches, norco prn prescribed at discharge. may use OTC motrin prn if desired as well. 25-OH vitamin D level about 28; had been taking 2000 IU vitamin D supplementation prior to admission - recommended increasing to 4000 units daily. continue incentive spirometry upon discharge. no hypoxia during the hospital stay. (2) Fracture of right great toe: s/p fall the weekend prior to admission. consulted Dr Mesha Cope from podiatry for assessment and recommendations. stiff walking shoe recommended at all times while ambulating. Dr Cope to see him 1 week post-discharge. nailbed was traumatized (apparently had had a blister that he popped 24 hours prior to admission) - was seen by wound care who recommended saline rinse, followed by aquacel silver, followed by optifoam dressing. TDaP was given on hospital day #1 as a metal trailer caused the trauma to the great toe. (3) Fall: x 2 -- one on Saturday, one on Saturday prior to admission. no syncope, presyncope, chest pain, dizziness or dyspnea. falls were accidental -- however, baseline diabetic neuropathy likely contributes to balance issues and gait instability. he is also legally blind which is significant risk factor for falls. brewing UTI may have contributed as well. PT, OT both advised ongoing therapy post-discharge and use of walker at all times. Encouraged to utilize his walker at home. patient was very resistant to home PT/OT but was agreeable to outpatient PT. patient stated he would go to [facility] in [place] - prescription given for such. (4) UTI (urinary tract infection): febrile at time of ER presentation. received 2 days of rocephin IV. blood cultures remained negative. urine culture was contaminated, but I still suspect he had a UTI. will send home with 8 additional days of keflex 500mg BID. This will also cover his right great toe. NO symptoms/signs of COVID-19 -- testing deferred during this brief stay. (5) Type 1 diabetes mellitus with complication: long-standing Type 1 diabetic going back to his 20s. reports frequent nocturnal lows -- cut his lantus at HS from 40 units to 35 units. Hba1c 7.9%. continue humalog with meals. resume metformin. (6) Proliferative diabetic retinopathy associated with type 1 diabetes mellitus: patient is legally blind which likely enhances fall risk as well (7) Vitamin D deficiency: 25-OH vit D level about 28. advised increasing his vitamin D supplementation from 2000 units/day to 4000 units/day. (8) Hypothyroidism: TSH 11/2019 wnl. cont synthroid. (9) Hypertension: continue KYLE. (10) Dyslipidemia: cont statin. (11) Balance problem: diabetic peripheral neuropathy, blindness, etc likely all contribute to gait and ambulatory dysfunction with increased fall risk. brewing UTI may have also contributed to falls. see above re: outpatient PT. patient also takes B12 supplementation and previous B12 level was robust. (12) Vaccine for psjglqeduq-bqocwwa-ycsbesygk, combined: patient's first fall involved hitting a large metal trailer for his car. multiple abrasions, etc from such. last TDaP - unknown. thus Adacel booster x 1 was given 02/22/20. Total Time Total Time Spent Total Time Spent (In Minutes): 45 Total Time Includes: Examination of the Patient, Discharge Planning, Medication Reconciliation and Communication With Other Providers Discharge Plan Discharge Items Patient Disposition: Home - Self-Care Reason For Visit: UTI, FALLS, L RIB FRACTURES, R GREAT TOE FRACTURE Discharge Diagnosis: 1. suspected urinary tract infection 2. recent falls 3. diabetic neuropathy - likely contributing to your falls 4. left-sided rib fractures x 2 5. right great toe fracture Activity: As commented below Activity Comment: WEAR A STIFF-SOLED SHOE WITH AMBULATION ON YOUR RIGHT FOOT AT ALL TIMES Non-emergency contact: Primary Care Provider and Surgeon Call non-emergency contact if: you have any medication questions, your symptoms worsen, your pain is not controlled, your pain is worsening, you have a fever, your wound has increased redness, your wound has increased drainage and your wound pain has increased Follow-up/Referrals: Addy Dewitt MD [Primary Care Provider] - (see Dr Dewitt in 1 week ) Mesha Cope DPM [Physician] - (See Dr Cope in 1 week ) Diet: Carb Count or DM1 Addtl Attending Provider Instructions: You were treated for the problems listed above in "discharge diagnoses." 1. Because of abrasions on your legs and trauma to your right big toe we gave you a Tetanus booster. This will cover you for 10 years. 2. You were seen by the patrol lady, Dr Cope, for your right big toe fracture and wound. Dr Cope recommends that you wear a stiff shoe on the right foot any time you walk. The toe needs plenty of support and protection in order to heal. Avoid using your slippers if possible. Wear your diabetic shoes in your house and also when you leave your house. 3. You were seen by PT and OT. They recommend that you use your walker at any time that you walk. This is important whether you are within your home or outside your home. They have also recommended additional PT and OT. Please take the prescription for PT/OT and call [facility] in [place] to set this up. 4. When you came to the ER you had a low-grade fever. Your urine was suspicious for urinary tract infection. You received 2 days of IV antibiotics for this. Please complete 8 more days of antibiotic starting the AM of 02/24/20. Your antibiotic is cephalexin 500mg. Take the cephalexin twice a day. 5. You have 2 broken ribs in the left chest from one of your recent falls. You can take a combination of the following for pain - * hydrocodone/acetaminophen 1 tablet every 6 hours as needed * this medication contains tylenol so don't take bztd-asy-jsrvubo tylenol at the same time * this medication may cause sleepiness; do not drink alcohol while using this medication * this medication may cause constipation; please take a combination of jcpt-mjg-qrmyjri miralax and senna (senakot) for prevention and treatment of constipation * lidoderm patches - up to 3 applied to the skin - at site of pain; place on for 12 hours, remove for 12 hours * ulok-lil-ppxadnc ibuprofen 600mg three times a day as needed or desired The ribs will take about 6 weeks to heal. 6. For the wound on your right big toe - * every 2 days please do the following - * rinse the wound with saline * cover with aquacel * then finally cover with optifoam dressing * next dressing change - morning of 02/25/20 7. Your vitamin D level was mildly low. Please increase your vitamin D to 4000 units daily. 8. Lastly, to prevent low blood sugars in the middle of the night, please LOWER your night-time lantus to 35 units. Follow-up -- see separate section Return to [facility] if -- * you have fevers over 100 degrees * you have worsening pain not relieved by your pain medication * you have worsening drainage from the right big toe * you have difficulty breathing or severe chest pain * any other concerns Pending Studies at Discharge: Yes Studies:: blood cultures, but thus far they are negative (no blood stream infection) Stand-Alone Forms: My [facility], Smoking Cessation Medications and DC Order Prescriptions: New sennosides [Senokot] 8.6 mg Tablet 17.2 mg PO QAM Qty: 60 RF: 0 polyethylene glycol 3350 [Miralax] 17 gram Powder In Packet 17 g PO DAILY Qty: 1 RF: 0 hydrocodone-acetaminophen [Seaman] 5-325 mg Tablet 1 tab PO Q6H PRN (Reason: pain) Qty: 15 RF: 0 lidocaine 5 % Adhesive Patch,Medicated 3 patch transdermal QAM Qty: 30 RF: 0 cephalexin [Keflex] 500 mg capsule 500 mg PO BID 8 Days Qty: 16 RF: 0 cholecalciferol (vitamin D3) 100 mcg (4,000 unit) capsule 4,000 unit PO DAILY Qty: 30 RF: 0 Continued escitalopram oxalate 20 mg tablet 20 mg PO DAILY Qty: 90 RF: 3 ramipril 5 mg capsule 5 mg PO DAILY Qty: 90 RF: 3 levothyroxine 175 mcg tablet 175 mcg PO DAILY Qty: 90 RF: 1 metformin 500 mg tablet extended release 24hr 1,000 mg PO DAILY Qty: 180 RF: 3 atorvastatin 40 mg tablet 80 mg PO QPM Qty: 90 RF: 3 ammonium lactate 12 % cream 1 appln topical BID Qty: 1 RF: 0 aspirin 81 mg tablet,delayed release (DR/EC) 81 mg PO DAILY Qty: 30 RF: 0 cyanocobalamin (vitamin B-12) 2,500 mcg tablet 2,500 mcg PO DAILY RF: 0 diclofenac sodium 1 % gel 4 gm TOP QID Qty: 100 RF: 2 Humalog U-100 Insulin 100 unit/mL Cartridge 15 sliding scale dose SUBCUT UD RF: 0 multivitamin Tablet 1 tab PO QAM RF: 0 Ocuvite Adult 50 Plus 250-5-1 mg Capsule 1 cap PO QAM RF: 0 ibuprofen [Advil] 200 mg Tablet 400 mg PO QID PRN (Reason: Pain) RF: 0 Simbrinza 1-0.2 % Drops,Suspension 1 drp OPHTHALMIC (EYE) BID RF: 0 Changed Lantus Solostar U-100 Insulin 100 unit/mL (3 mL) insulin pen 35 unit subcut HS Qty: 45 RF: 3 Discharge Orders: Discharge Order (Routine); Ordered 02/23/20 Ordered By: Kiran Odonnell Admission Data Admit Date/Time: 02/22/20 16:04 Attending Provider: Kiran Odonnell Admit Provider: Kiran Odonnell Primary Care Provider: Addy Dewitt Other Providers: Kiran Davis ; Mesha Cope Other Interventions: Discharge Summary Assessment (RN) Last Done: 02/23/20 16:13 Coding Level of Care Code D/C Day Management >30 mins Diagnoses Rib fractures S22.42XA Encounter type: initial encounter Fracture type: closed Laterality: left Rib fracture type: multiple ribs Fracture of right great toe S92.424A Encounter type: initial encounter Fracture alignment: nondisplaced Fracture type: closed Phalanx: distal Fall W19.XXXA Encounter type: initial encounter UTI (urinary tract infection) N30.00 Hematuria presence: without hematuria Urinary tract infection type: acute cystitis Type 1 diabetes mellitus with complication E10.8 Proliferative diabetic retinopathy associated with type 1 diabetes mellitus E10.3599 Laterality: unspecified laterality Proliferative retinopathy type: unspecified Vitamin D deficiency E55.9 Hypothyroidism E03.9 Hypothyroidism type: acquired Hypertension I10 Hypertension type: essential hypertension Dyslipidemia E78.5 Balance problem R26.89 Vaccine for gpxntesahv-mgniuzq-xhmnydhhu, combined Z23
[2020-02-23] MEDS ORDERED: INSULIN GLARGINE SOLOSTAR 100 UNITS/ML 3 ML PEN SQ SCH (21:00)
== END 2020-02-23 17:35 | disposition home or self-care (01) ==
LOC: ED 10:30 → 2N 16:04 → INTOOBSV 16:04 → 2N 17:19
DX: Z87.891 Personal history of nicotine dependence; S92.424A Nondisplaced fracture of distal phalanx of right great toe, initial encounter for closed fracture; E06.3 Autoimmune thyroiditis; F32.9 Major depressive disorder, single episode, unspecified; E03.9 Hypothyroidism, unspecified; Z91.041 Radiographic dye allergy status; E10.3599 Type 1 diabetes mellitus with proliferative diabetic retinopathy without macular edema, unspecified eye; Z79.890 Hormone replacement therapy; E10.42 Type 1 diabetes mellitus with diabetic polyneuropathy; H54.8 Legal blindness, as defined in USA; R26.89 Other abnormalities of gait and mobility; E78.5 Hyperlipidemia, unspecified; Z79.82 Long term (current) use of aspirin; E55.9 Vitamin D deficiency, unspecified; Z79.899 Other long term (current) drug therapy; S22.42XA Multiple fractures of ribs, left side, initial encounter for closed fracture; R50.9 Fever, unspecified; W18.00XA Striking against unspecified object with subsequent fall, initial encounter; N30.00 Acute cystitis without hematuria; E10.69 Type 1 diabetes mellitus with other specified complication; E66.9 Obesity, unspecified; Z79.4 Long term (current) use of insulin; I10 Essential (primary) hypertension

== ENCOUNTER 2023-07-14 16:01 | Observation (INO) ==
[2023-07-14 17:01] LABS: Basophils # (auto) 0.03 K/uL (0.00-0.20); Basophils % (auto) 0.6 %; Eosinophils # (auto) 0.16 K/uL (0.00-0.50); Eosinophils % (auto) 3.4 %; Hematocrit (blood only) 33.8 % (42.0-52.0); Immature Granulocytes # (auto) 0.01 K/uL (0.01-0.20); Immature Granulocytes % (auto) 0.2 %; Lymphocytes # (auto) 0.84 K/uL (1.20-3.40); Lymphocytes % (auto) 18.1 %; Mean Corpuscular Hemoglobin 29.3 pg (25.0-34.0); Mean Corpuscular Hgb Conc 32.5 g/dL (32.0-36.0); Mean Corpuscular Volume 90.1 fL (80.0-100.0); Mean Platelet Volume 9.7 fL (9.4-12.4); Monocytes # (auto) 0.34 K/uL (0.11-0.59); Monocytes % (auto) 7.3 %; Neutrophils # (auto) 3.27 K/uL (1.40-6.50); Neutrophils % (auto) 70.4 %; Platelet Count 203 K/uL (130-400); RDW Coefficient of Variation 14.2 % (11.5-14.5); RDW Standard Deviation 46.6 fL (36.4-46.3); Red Blood Count 3.75 M/uL (4.70-6.10); White Blood Count 4.65 K/ul (4.8-10.8)
--- NOTE | 2023-07-14 17:15 | XRay Report ---
XR chest 1V not portable CLINICAL HISTORY: Chest pain, nonspecific COMPARISON STUDY: Chest CT July 27, 2021. FINDINGS: Lung volumes are normal. Lungs are clear. There is no pneumothorax or pleural effusion. Car diac size is normal. Mediastinal contours are normal. There is no evidence for pulmonary edema. Sever al old bilateral rib fractures are incidentally noted. IMPRESSION: No acute cardiopulmonary findings. ACT 112: Negative or not required by law. Electronically signed by: Ang Park M.D. 07/14/2023 5:14 PM
[2023-07-14 17:16] LABS: Alanine Aminotransferase 13 U/L (7-52); Albumin Globulin Ratio 1.4 (0.9-2); Albumin Level 3.9 gm/dl (3.4-5.0); Alkaline Phosphatase 85 U/L (34-104); Anion Gap 8 (3-11); Aspartate Aminotransferase 18 U/L (13-39); BUN Creatinine Ratio 14.9 (10-20); Bilirubin,Total 0.4 mg/dl (0.2-1.0); Blood Urea Nitrogen 13 mg/dl (6-23); Calcium 8.9 mg/dl (8.6-10.3); Carbon Dioxide 25 mmol/L (21-32); Chloride 104 mmol/L (98-107); Est GFR (African American) 97.8 ml/min; Est GFR (Non-African American) 84.4 ml/min; Globulin 2.7 gm/dl (2.5-4.0); Glucose 243 mg/dl (70-99(Fasting)); Potassium 4.1 mmol/L (3.5-5.1); Sodium 137 mmol/L (136-145); Total Protein 6.6 gm/dl (6.0-8.3)
[2023-07-14 17:22] LABS: Troponin I High Sensitivity 17.6 pg/ml (0-20)
[2023-07-14 17:24] LABS: INR 0.9 (0.9-1.1); Partial Thromboplastin Ratio 0.9; Partial Thromboplastin Time 26 Seconds (21-31); Prothrombin Time 9.9 Seconds (9.0-12.0)
[2023-07-14 17:51] LABS: Magnesium 1.8 mg/dl (1.7-2.4)
--- NOTE | 2023-07-14 18:33 | Emergency Department Note ---
Impression & Plan Bilateral edema of lower extremity ED Provider Note HISTORY OF PRESENT ILLNESS: Patient is a 73-year-old male presenting with bilateral lower extremity edema. Patient reports that for the last 1.5 weeks has been having progressively worsening swelling of his legs that now extends up into his bilateral groins. He states that normally he sleeps in a lazy boy recliner, but his recently fell and broke her nose and arm and is sleeping in the recliner and he is currently sleeping in a computer chair. He states that he is not currently on a diuretic. He denies any chest pain or shortness of breath. However, in the last 48 hours he has been having significant difficulties getting around his home secondary to how swollen his legs are. Denies any fevers. Denies any DVT or PE history. ROS: as above PHYSICAL EXAM: Constitutional: Patient appears in no acute distress. HENT: Head: Normocephalic and atraumatic. Eyes: EOMI, PERRL Mouth/Throat: Mucous membranes moist. Neck: Trachea midline. Neck supple. Cardiovascular: Tachycardic with regular rhythm. No murmurs, rubs or gallops. Intact distal pulses. Pulmonary/Chest: No respiratory distress. Breath sounds clear and equal bilaterally. No wheezes or rales. Abdominal: Abdomen soft, no tenderness, rebound or guarding. Musculoskeletal: No tenderness or deformity noted. +3 pitting edema extending to bilateral groins. Skin: Warm and dry. No rash, erythema, pallor or cyanosis Psychiatric: Appropriate mood and affect for situation. Neurological: Alert and keenly responsive. CN II-XII grossly intact, moving all extremities equally and fully. MDM: - Vitals signs showed hypertension and borderline tachycardia. - History obtained via patient. Patient presents with bilateral lower extremity edema. Patient reports for the last 1.5 weeks has been having progressively worsening swelling of his bilateral legs that now extends up to his groins. He denies any chest pain or shortness of breath. He is not currently on any anticoagulation or diuretic therapy. He states he is unable to get around in the last 48 hours secondary to how swollen his legs are. Denies any DVT or PE history. - Chronic conditions affecting care: osteoarthritis; DM-1; HTN; HLD; hypothyroidism - Differential diagnoses include, but are not limited to: DVT; proximal occlusion; CHF exacerbation; lymphedema; electrolyte abnormality - Order placed for continuous cardiac monitoring. At this time, monitor showed rate of 95 bpm with normal sinus rhythm, per my interpretation. - External medical records reviewed. Primary care visit note dated 03/15/2023 was reviewed. Patient follows in their clinic for HTN and HLD - EKG interpreted by myself showed normal sinus rhythm. Rate 94 bpm. QT is prolonged at 388. No acute ischemic changes - Laboratory workup interpreted by myself showed leukopenia (WBC 4.65); normal PT/INR; normal electrolytes; hyperglycemia (glucose 243); normal troponin; normal BNP - CXR negative for pneumonia or pleural effusion, per my interpretation - Patient is significantly swollen - up to groins bilaterally. Given 40 mg IV lasix. Patient expresses concern that he is unable to ambulate secondary to how swollen he is. No evidence in the chart that he has had an echocardiogram. Despite his normal BNP and no pulmonary edema on his chest x-ray, concern for potential heart failure in the setting of his profound edema. - Discussion was had with patient care manager about patient's case and need for admission - Hospitalist consulted for admission - [facility] ASSESSMENT AND PLAN: Diagnosis: bilateral lower extremity edema Plan: admit Past Med/Surg History Medical History (Updated 07/14/23 @ 19:42 by Viviana Moser MD) H/O osteoporotic pathological fracture ribs Osteoporosis Left leg cellulitis Edema, lower extremity Sensorineural hearing loss of both ears Chronic pain of right knee Osteoarthritis Glaucoma Temporomandibular joint disorder NO LOCKING Surgical History H/O cystoscopy History of tonsillectomy H/O colonoscopy Hx of foot surgery DEBRIDEMENT RIGHT FOOT H/O hand surgery RIGHT THUMB History of tooth extraction History of cataract surgery R/L Family History Father Pulmonary embolism Unknown Leukemia Diabetes Cancer Hypertension Mother No problems noted. Other No family history of adverse response to anesthesia No family history of bleeding disorder Denies family history of Ovarian cancer Prostate cancer Myocardial infarction Breast cancer Colorectal cancer Stroke Social History Smoking Status: Never smoker Tobacco Type: Cigarettes Age Started Using Tobacco: 16; Age Quit Using Tobacco: 21; packs per day: 1; Second Hand Exposure: No; Do You Dip or Chew Tobacco: No; Hx Alcohol Use: No Hx Substance Use: No Preferred Language: Romanian Communication Ability: Effective Communication Ability Comment: legally blind Visual Impairment: Severely Limited Hearing Ability: Normal Operations Manager Assistant Required: No Beliefs That Will Affect Care: None marital status: Current Living Situation: Spouse Current Living Situation Comment: lives with in [place] current 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 status: retired 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 How many Children do You have: 2 How many Children do You have Comment: daughters Feels Safe at Home: Yes Childhood Exposure to Second-Hand Smoke: Yes caffeine: Yes Dental Care, Regularly: No Physical Activity Frequency: Does not Exercise Seatbelt Use: always Sunscreen Use: No Assistive Devices: Special Shoe Allergies Allergies Allergy/AdvReac Type Severity Reaction Status Date / Time Iodinated Contrast Media Allergy Unknown UNKNOWN Verified 07/14/23 21:32 REACTION iodine Allergy Unknown TOPICAL Verified 07/14/23 21:32 REDNESS AND EDEMA Home Meds Home Medications Medication Instructions Recorded Confirmed brinzolamide 1 %-brimonidine 0.2 % 1 drp ophthalmic (eye) BID 07/08/18 07/14/23 eye drops,suspension (Simbrinza) multivitamin 1 tab PO QAM 07/08/18 07/14/23 vit C,E,zinc,copper-bwrlg2u 250 1 cap PO QAM 07/08/18 07/14/23 mg-lutein 5 mg-zeaxanthin 1 mg capsule (Ocuvite Adult 50 Plus) cyanocobalamin (vitamin B-12) 2,500 mcg PO DAILY 12/08/18 07/14/23 2,500 mcg tablet insulin glargine 100 unit/mL (3 25 unit subcut .Q NOON 07/14/23 07/14/23 mL) subcutaneous pen (Lantus Solostar U-100 Insulin) triamcinolone acetonide 55 mcg 2 spray intranasal DAILY PRN Nasal 07/14/23 07/14/23 nasal spray aerosol (Nasacort) Congestion Previous Rx's Medication Instructions Recorded blood-glucose sensor (Dexcom G6 #3 ea 10/09/21 Sensor device) BD Ultra-Fine Verito Pen Needle 32 #500 ea 12/04/21 gauge x 5/32" (pen needle, diabetic) metformin 500 mg tablet,extended 1,000 mg (2 x 500 mg) PO DAILY 05/31/22 release 24hr (osmotic) #180 tabs calcitriol 0.5 mcg capsule 0.5 mcg PO DAILY #90 caps 07/09/22 escitalopram oxalate 20 mg tablet 20 mg PO DAILY #90 tabs 07/25/22 Humalog KwikPen Insulin 100 See Rx Instructions .Route 10/30/22 unit/mL subcutaneous (insulin .COMPLEX #60 mL lispro) omeprazole 40 mg capsule,delayed 40 mg PO DAILY #30 caps 11/09/22 release atorvastatin 80 mg tablet 80 mg PO QPM #90 tabs 12/27/22 ramipril 10 mg capsule 10 mg PO DAILY #90 caps 03/18/23 levothyroxine 200 mcg tablet 200 mcg PO DAILY #90 tabs 04/02/23 levothyroxine 50 mcg tablet 50 mcg PO DAILY #90 tabs 04/02/23 spironolactone 25 mg tablet 25 mg PO DAILY #90 tabs 04/02/23 (Aldactone) Results & Data (ED) Vital Signs Vital Signs - 24 hr 07/14/23 16:16 07/14/23 17:39 07/14/23 17:39 Temperature 36.3 C L 36.8 C Temperature Source Temporal Artery Scan Oral Pulse Rate 96 H Pulse Rate [Apical] 96 H Pulse Rhythm Pulse Rhythm [Apical] Regular Pulse Strength [Apical] Normal Respiratory Rate 18 16 Respiratory Effort / Characteristics Non-Labored Non-Labored Spontaneous Respiratory Depth Normal Normal Respiratory Pattern Regular Regular Blood Pressure 181/85 H Blood Pressure [Right Arm] 169/83 H Blood Pressure Mean 117 Blood Pressure Mean [Right Arm] 111 Blood Pressure Position [Right Arm] Semi-fowlers Pulse Oximetry 99 97 98 Oxygen Delivery Method Room Air Room Air Room Air Sepsis Recent Fever Within 48 Hours No Sepsis New/Unexplained Change in Mental Status N/A Sepsis Action Taken by Nursing No Action Required 07/14/23 17:39 07/14/23 18:00 07/14/23 19:43 Temperature Temperature Source Pulse Rate 96 H 96 H Pulse Rate [Apical] 98 H Pulse Rhythm Regular Pulse Rhythm [Apical] Pulse Strength [Apical] Respiratory Rate 20 Respiratory Effort / Characteristics Respiratory Depth Respiratory Pattern Blood Pressure Blood Pressure [Right Arm] 182/90 H Blood Pressure Mean Blood Pressure Mean [Right Arm] 120 Blood Pressure Position [Right Arm] Pulse Oximetry 98 99 Oxygen Delivery Method Room Air Room Air Sepsis Recent Fever Within 48 Hours Sepsis New/Unexplained Change in Mental Status Sepsis Action Taken by Nursing Laboratory Data 07/14/23 16:37 07/14/23 16:37 Lab Results 07/14/23 Range/Units 16:37 WBC 4.65 L (4.8-10.8) K/ul RBC 3.75 L (4.70-6.10) M/uL Hgb 11.0 L (14.0-18.0) g/dl Hct 33.8 L (42.0-52.0) % MCV 90.1 (80.0-100.0) fL MCH 29.3 (25.0-34.0) pg MCHC 32.5 (32.0-36.0) g/dL RDW Std Deviation 46.6 H (36.4-46.3) fL RDW Coeff of Roland 14.2 (11.5-14.5) % Plt Count 203 (130-400) K/uL MPV 9.7 (9.4-12.4) fL Immature Gran % (Auto) 0.2 % Neut % (Auto) 70.4 % Lymph % (Auto) 18.1 % Newton % (Auto) 7.3 % Eos % (Auto) 3.4 % Baso % (Auto) 0.6 % Neut # (Auto) 3.27 (1.40-6.50) K/uL Lymph # (Auto) 0.84 L (1.20-3.40) K/uL Newton # (Auto) 0.34 (0.11-0.59) K/uL Eos # (Auto) 0.16 (0.00-0.50) K/uL Baso # (Auto) 0.03 (0.00-0.20) K/uL Immature Gran # (Auto) 0.01 (0.01-0.20) K/uL PT 9.9 (9.0-12.0) Seconds INR 0.9 (0.9-1.1) APTT 26 (21-31) Seconds PTT Ratio 0.9 Sodium 137 (136-145) mmol/L Potassium 4.1 (3.5-5.1) mmol/L Chloride 104 (98-107) mmol/L Carbon Dioxide 25 (21-32) mmol/L Anion Gap 8 (3-11) BUN 13 (6-23) mg/dl Creatinine 0.87 (0.6-1.4) mg/dl Est Cr Clr Drug Dosing OB GYN Est GFR ( Amer) 97.8 ml/min Est GFR (Non-Af Amer) 84.4 ml/min BUN/Creatinine Ratio 14.9 (10-20) Glucose 243 H (70-99(Fasting)) mg/dl Calcium 8.9 (8.6-10.3) mg/dl Magnesium 1.8 (1.7-2.4) mg/dl Total Bilirubin 0.4 (0.2-1.0) mg/dl AST 18 (13-39) U/L ALT 13 (7-52) U/L Alkaline Phosphatase 85 (34-104) U/L Troponin I High Sens 17.6 (0-20) pg/ml B-Natriuretic Peptide 83 (0-100) pg/ml Total Protein 6.6 (6.0-8.3) gm/dl Albumin 3.9 (3.4-5.0) gm/dl Globulin 2.7 (2.5-4.0) gm/dl Albumin/Globulin Ratio 1.4 (0.9-2) TSH 23.030 H (0.300-4.500) uIu/ml Free T4 0.69 (0.61-1.60) ng/dl Administered Medications Discontinued Medications Furosemide (Furosemide 40 Mg/4 Ml Vial) 40 mg IV ONE ONE Stop: 07/14/23 19:29 Last Admin: 07/14/23 19:44 Dose: 40 mg Documented By: JAQUAN Imaging Data Radiologist's Impression: Chest X-Ray 07/14/23 16:20 XR chest 1V not portable CLINICAL HISTORY: Chest pain, nonspecific COMPARISON STUDY: Chest CT July 27, 2021. FINDINGS: Lung volumes are normal. Lungs are clear. There is no pneumothorax or pleural effusion. Cardiac size is normal. Mediastinal contours are normal. There is no evidence for pulmonary edema. Several old bilateral rib fractures are incidentally noted. IMPRESSION: No acute cardiopulmonary findings. ACT 112: Negative or not required by law. Electronically signed by: Ang Park M.D. 07/14/2023 5:14 PM Discharge Plan Visit Data Chief Complaint: Swelling/Edema to Extremity Stated Complaint: HAND/LEGS SWOLLEN, TROUBLE WALKING, LEG PAIN ED Provider: Viviana Moser Discharge Problem: Bilateral edema of lower extremity Forms Stand Alone Forms: My [facility] Prescriptions Prescriptions: No Action (DME) pen needle, diabetic [BD Ultra-Fine Verito Pen Needle] 32 gauge x 5/32" needle See Rx Instructions .ROUTE .MEDSUPPLY Qty: 500 3RF Rx Instructions: Use 5 daily to inject insulin metformin 500 mg tablet extended release 24hr 1,000 mg PO DAILY Qty: 180 3RF calcitriol 0.5 mcg capsule 0.5 mcg PO DAILY Qty: 90 1RF escitalopram oxalate 20 mg tablet 20 mg PO DAILY Qty: 90 3RF insulin lispro [Humalog KwikPen Insulin] 100 unit/mL insulin pen See Rx Instructions .ROUTE .COMPLEX Qty: 60 3RF Rx Instructions: Inject per sliding scale up to 60 units per day; atorvastatin 80 mg tablet 80 mg PO QPM Qty: 90 3RF Rx Instructions: for cholesterol ramipril 10 mg capsule 10 mg PO DAILY Qty: 90 3RF cyanocobalamin (vitamin B-12) 2,500 mcg tablet 2,500 mcg PO DAILY (DME) Dexcom G6 Sensor Device See Rx Instructions .Route Qty: 3 0RF Rx Instructions: As directed omeprazole 40 mg capsule,delayed release(DR/EC) 40 mg PO DAILY Qty: 30 2RF spironolactone [Aldactone] 25 mg tablet 25 mg PO DAILY Qty: 90 3RF levothyroxine 50 mcg tablet 50 mcg PO DAILY MDD 250mcg Qty: 90 1RF Rx Instructions: Take daily with Levothyroxine 200mcg for total daily dose of 250mcg. levothyroxine 200 mcg tablet 200 mcg PO DAILY MDD 250 mcg Qty: 90 1RF Rx Instructions: Take daily with Levothyroxine 50mcg for total daily dose of 250mcg. multivitamin Tablet 1 tab PO QAM Ocuvite Adult 50 Plus 250-5-1 mg Capsule 1 cap PO QAM Simbrinza 1-0.2 % Drops,Suspension 1 drp OPHTHALMIC (EYE) BID triamcinolone acetonide [Nasacort] 55 mcg aerosol,spray 2 spray intranasal DAILY PRN (Reason: Nasal Congestion) Rx Instructions: administer into each nostril insulin glargine [Lantus Solostar U-100 Insulin] 100 unit/mL (3 mL) insulin pen 25 unit subcut .Q NOON Referrals Referrals: Belinda Moreira MD [Primary Care Provider] -
[2023-07-14] MEDS: FUROSEMIDE 40 MG/4 ML VIAL IV ONE (19:44)
[2023-07-14 21:21] LABS: T4 Free Thyroxine 0.69 ng/dl (0.61-1.60)
--- NOTE | 2023-07-14 21:36 | CT Scan Report ---
Exam(s): CT ABDOMEN + PELVIS Without Contrast EXAM: CT Abdomen and Pelvis Without Intravenous Contrast CLINICAL HISTORY: Reason for exam: bilateral LE edema; r/o compress mass. TECHNIQUE: Axial computed tomography images of the abdomen and pelvis without intravenous contrast. CTDI is 27.79 mGy and DLP is 1301.51 mGy-cm. Automated exposure control was utilized for the study. A dose lowering technique was utilized adhering to the principles of ALARA. COMPARISON: 02/22/2020. FINDINGS: Lung bases: Minimal bilateral lower lobe and lingular atelectasis . Heart: Unremarkable. No cardiomegaly. No significant pericardial effusion. Normal cardiac size with coronary artery calcifications. ABDOMEN: Liver: Unremarkable. Gallbladder and bile ducts: Unremarkable. No calcified stones. No ductal dilation. Pancreas: Unremarkable. No ductal dilation. Spleen: Unremarkable. No splenomegaly. Adrenals: Unremarkable. No mass. Kidneys and ureters: Unremarkable. No obstructing stones. No hydronephrosis. Stomach and bowel: Moderate fecal debris within the colon. No obstruction. No mucosal thickening. PELVIS: Appendix: Normal appendix. Bladder: Unremarkable. No stones. Reproductive: Unremarkable as visualized. ABDOMEN and PELVIS: Intraperitoneal space: Minimal stranding in the central mesenteric fat suggestive of mild mesenteric panniculitis. No free air. No significant fluid collection. Bones/joints: Multilevel degenerative disease of the spine, more significant to the lower lumbar spine. Degenerative disease of bilateral SI joints, hips and pubic symphysis. No acute fracture. No dislocation. Soft tissues: There is a ventral hernia at the level of the umbilicus traversed by a small bowel loop with no signs of obstruction. Vasculature: Mild atherosclerotic disease of aorta with no aneurysm. Lymph nodes: Mild fullness of the lymph nodes in the inguinal region which may indicate nonspecific inflammatory response. IMPRESSION: 1. 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 2. No acute appendicitis or bowel obstruction. 3. Ventral hernia at the umbilicus level containing a small bowel loop with no signs of bowel obstruction. 4. Unremarkable abdominal viscera. 5. Mild fullness of the lymph nodes in the inguinal region which may indicate nonspecific inflammatory response. Electronically signed by: Mecca Avila MD 07/14/23 21:35 PM
--- NOTE | 2023-07-14 22:20 | History & Physical Report ---
Date of Service July 14, 2023 Assessment & Plan (1) Bilateral edema of lower extremity: Plan: 73-year-old male presenting with 1-1/2 weeks of progressive bilateral lower extremity edema. This occurs in the setting of him sleeping in a chair with his legs dangling. Patient denies cough, shortness of breath or worsening orthopnea. Labs as above with elevated TSH = 23, normal T4 Urinalysis has been ordered but not yet sent or resulted Patient has been given Lasix 40 mg IV with good diuretic effect Adjustment of Synthroid as below Check 2D echo Lasix 40 mg IV daily, monitor response (2) Hypothyroidism: Plan: Chronic. Elevated TSH = 23 with normal T4. Patient reports that he takes his medication. He is currently taking Synthroid 250 mcg daily. Will increase to 275 mcg daily Patient should follow-up with outpatient PCP for repeat TFTs in 4 to 6 weeks (3) Hypertension: Plan: Elevated blood pressure. Continue spironolactone 25 mg p.o. daily Will give lisinopril 40 mg p.o. daily while inpatient is substitution for ramipril Continue to monitor blood pressure (4) GERD (gastroesophageal reflux disease): Plan: Chronic. Stable. Continue omeprazole (5) Dyslipidemia: Plan: Chronic. Stable. Continue atorvastatin 80 mg p.o. every afternoon (6) Diabetes mellitus type 1, uncontrolled: Plan: Last hemoglobin A1c = 8.7 on 07/12/2023 Lantus 10 units twice daily with insulin sliding scale Goal blood sugar [id number] F/E/Ndiuresis with Lasix 40 mg IV daily, monitor renal function and el ectrolytes, carb consistent diet as tolerated ProphylaxisLovenox for DVT prophylaxis Codefull per discussion with patient at time of admission Dispositionobservation to medical floor History of Present Illness Chief Complaint: Bilateral lower extremity edema Primary Care Provider: Belinda Moreira MD Kvng Yoder is a 73-year-old male presenting with progressive bilateral lower extremity edema. Patient reports that he typically sleeps in a recliner chair with his feet propped up. However, his recently fell and broke her arm and has been sleeping in his chair for the last 1.5 weeks. Patient has been sleeping in an office chair with his legs dangling down. He reports significant bilateral lower extremity edema and heaviness/pain progressive over the last 1.5 weeks. He denies fever or chills. No history of CHF, liver disease or kidney disease. He does get edema at the end of the day which typically resolves by elevating his legs. No chest pain, palpitations or shortness of breath. Patient denies orthopnea but reports that he sleeps sitting upright in a chair because he breathes easier. This is stable and unchanged. He reports swelling in his hands as well. No additional complaints In the ER he is afebrile, hypertensive otherwise hemodynamically stable. Adequate oxygenation on room air ER course: Lasix 40 mg IV Allergies Allergy/AdvReac Type Severity Reaction Status Date / Time Iodinated Contrast Media Allergy Unknown UNKNOWN Verified 07/14/23 21:32 REACTION iodine Allergy Unknown TOPICAL Verified 07/14/23 21:32 REDNESS AND EDEMA Home Medications Medication Instructions Recorded Confirmed Type brinzolamide 1 %-brimonidine 0.2 % 1 drp ophthalmic (eye) BID 07/08/18 07/14/23 History eye drops,suspension (Simbrinza) multivitamin 1 tab PO QAM 07/08/18 07/14/23 History vit C,E,zinc,copper-qzskz6p 250 1 cap PO QAM 07/08/18 07/14/23 History mg-lutein 5 mg-zeaxanthin 1 mg capsule (Ocuvite Adult 50 Plus) cyanocobalamin (vitamin B-12) 2,500 mcg PO DAILY 12/08/18 07/14/23 History 2,500 mcg tablet blood-glucose sensor (Dexcom G6 #3 ea 10/09/21 07/14/23 Rx Sensor device) BD Ultra-Fine Verito Pen Needle 32 #500 ea 12/04/21 07/14/23 Rx gauge x 5/32" (pen needle, diabetic) metformin 500 mg tablet,extended 1,000 mg (2 x 500 mg) PO DAILY 05/31/22 07/14/23 Rx release 24hr (osmotic) #180 tabs calcitriol 0.5 mcg capsule 0.5 mcg PO DAILY #90 caps 07/09/22 07/14/23 Rx escitalopram oxalate 20 mg tablet 20 mg PO DAILY #90 tabs 07/25/22 07/14/23 Rx Humalog KwikPen Insulin 100 See Rx Instructions .Route 10/30/22 07/14/23 Rx unit/mL subcutaneous (insulin .COMPLEX #60 mL lispro) omeprazole 40 mg capsule,delayed 40 mg PO DAILY #30 caps 11/09/22 07/14/23 Rx release atorvastatin 80 mg tablet 80 mg PO QPM #90 tabs 12/27/22 07/14/23 Rx ramipril 10 mg capsule 10 mg PO DAILY #90 caps 03/18/23 07/14/23 Rx levothyroxine 200 mcg tablet 200 mcg PO DAILY #90 tabs 04/02/23 07/14/23 Rx levothyroxine 50 mcg tablet 50 mcg PO DAILY #90 tabs 04/02/23 07/14/23 Rx spironolactone 25 mg tablet 25 mg PO DAILY #90 tabs 04/02/23 07/14/23 Rx (Aldactone) insulin glargine 100 unit/mL (3 25 unit subcut .Q NOON 07/14/23 07/14/23 History mL) subcutaneous pen (Lantus Solostar U-100 Insulin) triamcinolone acetonide 55 mcg 2 spray intranasal DAILY PRN Nasal 07/14/23 07/14/23 History nasal spray aerosol (Nasacort) Congestion Past Med/Surg History Medical History H/O osteoporotic pathological fracture ribs Osteoporosis Left leg cellulitis Edema, lower extremity Sensorineural hearing loss of both ears Chronic pain of right knee Osteoarthritis Glaucoma Temporomandibular joint disorder NO LOCKING Surgical History H/O cystoscopy History of tonsillectomy H/O colonoscopy Hx of foot surgery DEBRIDEMENT RIGHT FOOT H/O hand surgery RIGHT THUMB History of tooth extraction History of cataract surgery R/L Family History Father , age 84 - pulmonary embolism after hip surgery Pulmonary embolism Unknown Leukemia Diabetes Cancer Hypertension Mother , age 98 - biliary sepsis/cholecystitis? No problems noted. Other No family history of adverse response to anesthesia No family history of bleeding disorder Denies family history of Ovarian cancer Prostate cancer Myocardial infarction Breast cancer Colorectal cancer Stroke Social History Smoking Status: Never smoker Tobacco Type: Cigarettes Age Started Using Tobacco: 16; Age Quit Using Tobacco: 21; packs per day: 1; Second Hand Exposure: No; Do You Dip or Chew Tobacco: No; Hx Alcohol Use: No Hx Substance Use: No Preferred Language: Maltese Communication Ability: Effective Communication Ability Comment: legally blind Visual Impairment: Severely Limited Hearing Ability: Normal Ophthalmologist Retina Specialist Required: No Beliefs That Will Affect Care: None marital status: Current Living Situation: Spouse Current Living Situation Comment: lives with in [place] current 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 status: retired 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 How many Children do You have: 2 How many Children do You have Comment: daughters Feels Safe at Home: Yes Childhood Exposure to Second-Hand Smoke: Yes caffeine: Yes Dental Care, Regularly: No Physical Activity Frequency: Does not Exercise Seatbelt Use: always Sunscreen Use: No Assistive Devices: Special Shoe Review of Systems Review of Systems: All systems reviewed & are unremarkable except as noted in HPI & below Physical Exam Physical Exam: General: patient resting comfortably, NAD, non-toxic in appearance, AA&O x 4 Skin: warm, dry, intact, no rashes or lesions HEENT: NC/AT, PERRL, EOMI, anicteric sclera, conjunctiva without injection, ex ternal ear normal to inspection and nontender, nares patent, moist mucus membranes, dentition intact, no oropharyngeal lesions, neck supple, trachea midline, no LAD, no thyromegaly, no JVD Heart: +S1/S2, regular, no m/r/g Lungs: equal air entry bilaterally, no rales/rhonchi/wheezes Abd: +BS, soft, NT/ND, no masses/organomegaly/ascites Ext: warm, 2+ pulses in UE/LE bilaterally, no clubbing/cyanosis, 3+ pitting edema of the legs bilaterally extending to the knees. Some swelling noted in bilateral thighs as well. Neuro: nonfocal, patient AA&O x 4, speech intact, no facial droop, moving all e xtremities on command with equal strength 5/5 Results & Data Results & Data Vital Signs (Past 12 Hours) Vital Signs Temp Pulse Pulse Resp BP BP Pulse Ox 07/14/23 22:12 93 H 12 164/94 H 98 07/14/23 19:43 98 H 20 182/90 H 99 07/14/23 18:00 96 H 07/14/23 17:39 96 H 98 07/14/23 17:39 98 07/14/23 17:39 36.8 C 96 H 16 169/83 H 97 07/14/23 16:16 36.3 C L 96 H 18 181/85 H 99 O2 Del Method 07/14/23 22:12 Room Air 07/14/23 19:43 Room Air 07/14/23 18:00 07/14/23 17:39 Room Air 07/14/23 17:39 Room Air 07/14/23 17:39 Room Air 07/14/23 16:16 Room Air Laboratory Results Laboratory Results WBC 4.65 K/ul (4.8-10.8) L 07/14/23 16:37 RBC 3.75 M/uL (4.70-6.10) L 07/14/23 16:37 Hgb 11.0 g/dl (14.0-18.0) L 07/14/23 16:37 Hct 33.8 % (42.0-52.0) L 07/14/23 16:37 MCV 90.1 fL (80.0-100.0) 07/14/23 16:37 MCH 29.3 pg (25.0-34.0) 07/14/23 16:37 MCHC 32.5 g/dL (32.0-36.0) 07/14/23 16:37 RDW Std Deviation 46.6 fL (36.4-46.3) H 07/14/23 16:37 RDW Coeff of Roland 14.2 % (11.5-14.5) 07/14/23 16:37 Plt Count 203 K/uL (130-400) 07/14/23 16:37 MPV 9.7 fL (9.4-12.4) 07/14/23 16:37 Immature Gran % (Auto) 0.2 % 07/14/23 16:37 Neut % (Auto) 70.4 % 07/14/23 16:37 Lymph % (Auto) 18.1 % 07/14/23 16:37 [place] % (Auto) 7.3 % 07/14/23 16:37 Eos % (Auto) 3.4 % 07/14/23 16:37 Baso % (Auto) 0.6 % 07/14/23 16:37 Neut # (Auto) 3.27 K/uL (1.40-6.50) 07/14/23 16:37 Lymph # (Auto) 0.84 K/uL (1.20-3.40) L 07/14/23 16:37 [place] # (Auto) 0.34 K/uL (0.11-0.59) 07/14/23 16:37 Eos # (Auto) 0.16 K/uL (0.00-0.50) 07/14/23 16:37 Baso # (Auto) 0.03 K/uL (0.00-0.20) 07/14/23 16:37 Immature Gran # (Auto) 0.01 K/uL (0.01-0.20) 07/14/23 16:37 PT 9.9 Seconds (9.0-12.0) 07/14/23 16:37 INR 0.9 (0.9-1.1) 07/14/23 16:37 APTT 26 Seconds (21-31) 07/14/23 16:37 PTT Ratio 0.9 07/14/23 16:37 Sodium 137 mmol/L (136-145) 07/14/23 16:37 Potassium 4.1 mmol/L (3.5-5.1) 07/14/23 16:37 Chloride 104 mmol/L (98-107) 07/14/23 16:37 Carbon Dioxide 25 mmol/L (21-32) 07/14/23 16:37 Anion Gap 8 (3-11) 07/14/23 16:37 BUN 13 mg/dl (6-23) 07/14/23 16:37 Creatinine 0.87 mg/dl (0.6-1.4) 07/14/23 16:37 Est Cr Clr Drug Dosing TICKET COLLECTOR 07/14/23 16:37 Est GFR ( Amer) 97.8 ml/min 07/14/23 16:37 Est GFR (Non-Af Amer) 84.4 ml/min 07/14/23 16:37 BUN/Creatinine Ratio 14.9 (10-20) 07/14/23 16:37 Glucose 243 mg/dl (70-99(Fasting)) H 07/14/23 16:37 Calcium 8.9 mg/dl (8.6-10.3) 07/14/23 16:37 Magnesium 1.8 mg/dl (1.7-2.4) 07/14/23 16:37 Total Bilirubin 0.4 mg/dl (0.2-1.0) 07/14/23 16:37 AST 18 U/L (13-39) 07/14/23 16:37 ALT 13 U/L (7-52) 07/14/23 16:37 Alkaline Phosphatase 85 U/L (34-104) 07/14/23 16:37 Troponin I High Sens 17.6 pg/ml (0-20) 07/14/23 16:37 B-Natriuretic Peptide 83 pg/ml (0-100) 07/14/23 16:37 Total Protein 6.6 gm/dl (6.0-8.3) 07/14/23 16:37 Albumin 3.9 gm/dl (3.4-5.0) 07/14/23 16:37 Globulin 2.7 gm/dl (2.5-4.0) 07/14/23 16:37 Albumin/Globulin Ratio 1.4 (0.9-2) 07/14/23 16:37 TSH 23.030 uIu/ml (0.300-4.500) H 07/14/23 16:37 Free T4 0.69 ng/dl (0.61-1.60) 07/14/23 16:37 Impressions Chest X-Ray 07/14/23 16:20 XR chest 1V not portable CLINICAL HISTORY: Chest pain, nonspecific COMPARISON STUDY: Chest CT July 27, 2021. FINDINGS: Lung volumes are normal. Lungs are clear. There is no pneumothorax or pleural effusion. Cardiac size is normal. Mediastinal contours are normal. There is no evidence for pulmonary edema. Several old bilateral rib fractures are incidentally noted. IMPRESSION: No acute cardiopulmonary findings. ACT 112: Negative or not required by law. Electronically signed by: Ang Park M.D. 07/14/2023 5:14 PM Abdomen/Pelvis CT 07/14/23 19:42 Exam(s): CT ABDOMEN + PELVIS Without Contrast EXAM: CT Abdomen and Pelvis Without Intravenous Contrast CLINICAL HISTORY: Reason for exam: bilateral LE edema; r/o compress mass. TECHNIQUE: Axial computed tomography images of the abdomen and pelvis without intravenous contrast. CTDI is 27.79 mGy and DLP is 1301.51 mGy-cm. Automated exposure control was utilized for the study. A dose lowering technique was utilized adhering to the principles of ALARA. COMPARISON: 02/22/2020. FINDINGS: Lung bases: Minimal bilateral lower lobe and lingular atelectasis . Heart: Unremarkable. No cardiomegaly. No significant pericardial effusion. Normal cardiac size with coronary artery calcifications. ABDOMEN: Liver: Unremarkable. Gallbladder and bile ducts: Unremarkable. No calcified stones. No ductal dilation. Pancreas: Unremarkable. No ductal dilation. Spleen: Unremarkable. No splenomegaly. Adrenals: Unremarkable. No mass. Kidneys and ureters: Unremarkable. No obstructing stones. No hydronephrosis. Stomach and bowel: Moderate fecal debris within the colon. No obstruction. No mucosal thickening. PELVIS: Appendix: Normal appendix. Bladder: Unremarkable. No stones. Reproductive: Unremarkable as visualized. ABDOMEN and PELVIS: Intraperitoneal space: Minimal stranding in the central mesenteric fat suggestive of mild mesenteric panniculitis. No free air. No significant fluid collection. Bones/joints: Multilevel degenerative disease of the spine, more significant to the lower lumbar spine. Degenerative disease of bilateral SI joints, hips and pubic symphysis. No acute fracture. No dislocation. Soft tissues: There is a ventral hernia at the level of the umbilicus traversed by a small bowel loop with no signs of obstruction. Vasculature: Mild atherosclerotic disease of aorta with no aneurysm. Lymph nodes: Mild fullness of the lymph nodes in the inguinal region which may indicate nonspecific inflammatory response. IMPRESSION: 1. 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 2. No acute appendicitis or bowel obstruction. 3. Ventral hernia at the umbilicus level containing a small bowel loop with no signs of bowel obstruction. 4. Unremarkable abdominal viscera. 5. Mild fullness of the lymph nodes in the inguinal region which may indicate nonspecific inflammatory response. Electronically signed by: Mecca Avila MD 07/14/23 21:35 PM ECG Additional Comments: EKG per my interpretation reveals normal sinus rhythm at 94 bpm, normal axis, NE = 190, QRS = 98, QTc = 45, nonspecific ST changes but no acute ischemia PG Care Time/CCT Total # of Minutes Spent Total Time Spent with Patient: Total time spent is greater than 50% in coordination of care (as documented) at patient's floor/unit and/or counseling patient: Coding Level of Care Code 45908 INT INP/OBS CARE 75MIN Diagnoses Bilateral edema of lower extremity R60.0 Acquired hypothyroidism E03.9 Hypothyroidism type: acquired Essential hypertension I10 Hypertension type: essential hypertension GERD (gastroesophageal reflux disease) K21.9 Dyslipidemia E78.5 Diabetes mellitus type 1, uncontrolled E10.65 (2) Hypothyroidism Hypothyroidism type: acquired Qualified Code(s): E03.9 - Hypothyroidism, unspecified (3) Hypertension Hypertension type: essential hypertension Qualified Code(s): I10 - Essential (primary) hypertension
[2023-07-15] MEDS ORDERED: CARBOHYDRATES FOR HYPOGLYCEMIA PO PRN (01:23)
[2023-07-15] MEDS ORDERED: GLUCOSE 10 TAB/TUBE PO PRN (01:23)
[2023-07-15] MEDS ORDERED: GLUCAGON FOR INJ 1 MG VIAL SQ PRN (01:23)
[2023-07-15] MEDS ORDERED: GLUCOSE 40% GEL 15 GM TUBE PO PRN (01:23)
[2023-07-15] MEDS ORDERED: ONDANSETRON INJ 2 MG/ML 2 ML VIAL IV PRN (01:23)
[2023-07-15] MEDS ORDERED: DEXTROSE 50% 50 ML SYRINGE IV PRN (01:23)
[2023-07-15 01:55] LABS: Appearance Urine Clear (Clear); Bilirubin Urine Negative (Negative); Blood Urine Negative (Negative); Color Urine Yellow; Glucose Urine UA Negative (Negative); Ketones Urine Trace (Negative); Leukocyte Esterase Urine Negative (Negative); Nitrite Urine Negative (Negative); Protein Urine Negative (Negative); Specific Gravity Urine 1.009 (1.000-1.030); Urobilinogen Urine Negative (Negative); pH Urine 5.5 (4.5-7.5)
[2023-07-15] MEDS: LEVOTHYROXINE SODIUM 75 MCG TABLET PO SCH (06:03)
[2023-07-15] MEDS: LEVOTHYROXINE SODIUM 200 MCG TABLET PO SCH (06:04)
[2023-07-15] MEDS: ESCITALOPRAM OXALATE 20 MG TAB PO SCH (08:55)
[2023-07-15] MEDS: lisinopril 40 MG TAB PO SCH (08:55)
[2023-07-15] MEDS: SPIRONOLACTONE 25 MG TAB PO SCH (08:56)
[2023-07-15] MEDS: CALCITRIOL 0.25 MCG CAPSULE PO SCH (08:56)
[2023-07-15] MEDS: ENOXAPARIN INJ 40 MG/0.4 ML SYR SQ SCH (08:57)
[2023-07-15] MEDS ORDERED: LANTUS PER UNIT CHARGE SQ SCH (09:00)
[2023-07-15] MEDS: INSULIN ASPART PER UNIT CHARGE SC SCH (09:04)
[2023-07-15] MEDS: FUROSEMIDE 40 MG/4 ML VIAL IV SCH (09:15)
--- NOTE | 2023-07-15 09:25 | Hospitalist Progress Note ---
Date of Service July 15, 2023 Assessment & Plan (1) Bilateral edema of lower extremity: Plan: 73-year-old male presenting with 1-1/2 weeks of progressive bilateral lower extremity edema. This occurs in the setting of him sleeping in a chair with his legs dangling. Patient denies cough, shortness of breath or worsening orthopnea. Labs as above with elevated TSH = 23, normal T4 Patient has been given Lasix 40 mg IV with good diuretic effect, feels some subjective improvement and will be given pm dose 07/15/23 Adjustment of Synthroid Echo with preserved EF, elevated r heart pressures, mild diastolic dysfunction (2) Hypothyroidism: Plan: Chronic. Elevated TSH = 23 with normal T4. Patient reports that he takes his medication. He is currently taking Synthroid 250 mcg daily. did increase to 275 mcg daily Patient should follow-up with outpatient PCP for repeat TFTs in 4 to 6 weeks (3) Hypertension: Plan: Elevated blood pressure. Continue spironolactone 25 mg p.o. daily Will give lisinopril 40 mg p.o. daily while inpatient is substitution for ramipril (4) GERD (gastroesophageal reflux disease): Plan: Chronic. Stable. Continue omeprazole (5) Dyslipidemia: Plan: Chronic. Stable. Continue atorvastatin 80 mg p.o. every afternoon (6) Diabetes mellitus type 1, uncontrolled: Plan: Last hemoglobin A1c = 8.7 on 07/12/2023 Lantus 10 units twice daily with insulin sliding scale due to elevated glucose did have one dose NPH, and increased lantus to 15 ProphylaxisLovenox for DVT prophylaxis Codefull per discussion with patient at time of admission Admission and Anticipated Discharge Date Admission Date: July 14, 2023 Subjective pt feels that the sole reason his legs are swollen was not sleeping in his recliner as he gave up his recliner for his to sleep in due to her broken humerus he feels good improvement but not yet back to baseline Physical Exam Physical Exam: pt with distal leg edema and erythema consistent with chronic venous stasis changes does not appear to be cellulitic Results & Data Results & Data Vital Signs (Past 12 Hours) Vital Signs Temp Pulse Pulse Pulse Resp BP BP 07/15/23 07:40 97.7 F 100 H 18 152/76 H 07/15/23 02:20 07/15/23 01:27 98.2 F 18 179/88 H 07/15/23 01:23 98.2 F 18 179/88 H 07/15/23 00:05 89 20 170/87 H 07/15/23 00:04 89 20 170/87 H 07/14/23 22:29 94 H 07/14/23 22:12 93 H 12 164/94 H Pulse Ox O2 Del Method 07/15/23 07:40 96 Room Air 07/15/23 02:20 Room Air 07/15/23 01:27 97 Room Air 07/15/23 01:23 97 Room Air 07/15/23 00:05 97 Room Air 07/15/23 00:04 97 Room Air 07/14/23 22:29 07/14/23 22:12 98 Room Air Laboratory Results Reviewed CBC Reviewed chemistry Reviewed [id number] glucose adjusted insulin due to elevated levels PG Care Time/CCT Total # of Minutes Spent Total Time Spent with Patient: Total time spent is greater than 50% in coordination of care (as documented) at patient's floor/unit and/or counseling patient: Coding Level of Care Code 68370 SUB INP/OBS CARE 2/35MIN Diagnoses Bilateral edema of lower extremity R60.0 Acquired hypothyroidism E03.9 Hypothyroidism type: acquired Essential hypertension I10 Hypertension type: essential hypertension GERD (gastroesophageal reflux disease) K21.9 Dyslipidemia E78.5 Diabetes mellitus type 1, uncontrolled E10.65 (2) Hypothyroidism Hypothyroidism type: acquired Qualified Code(s): E03.9 - Hypothyroidism, unspecified (3) Hypertension Hypertension type: essential hypertension Qualified Code(s): I10 - Essential (primary) hypertension
[2023-07-15] MEDS: NovoLIN-N (NPH) PER UNIT CHARGE SC SCH (09:28)
[2023-07-15] MEDS: LANTUS PER UNIT CHARGE SQ SCH (09:28)
--- NOTE | 2023-07-15 10:17 | XCELERA ---
[id number] [id number]
--- NOTE | 2023-07-15 10:51 | Electrocardiogram Report ---
Test Reason : Blood Pressure : / mmHG Vent. Rate : 094 BPM Atrial Rate : 094 BPM P-R Int : 190 ms QRS Dur : 098 ms QT Int : 388 ms P-R-T Axes : 086 027 045 degrees QTc Int : 485 ms Normal sinus rhythm Prolonged QT Abnormal ECG When compared with ECG of 06-JUN-2021 19:52, No significant change was found Confirmed by Keshav Carballo ([id number] on 07/15/2023 10:50:53 AM Referred By: REFERRED SELF Confirmed By:Joao Carballo
[2023-07-15] MEDS: ACETAMINOPHEN 325 MG TAB PO PRN (15:15)
[2023-07-15] MEDS: POTASSIUM CHLORIDE CRTAB 20 MEQ TABCR PO STA (16:51)
[2023-07-15] MEDS: FUROSEMIDE 40 MG/4 ML VIAL IV ONE (16:52)
[2023-07-15] MEDS: ATORVASTATIN 40 MG TAB PO SCH (20:36)
[2023-07-16 09:50] LABS: BUN Creatinine Ratio 14.4 (10-20); Calcium 9.3 mg/dl (8.6-10.3); Creatinine Clr Calc Pharmacy 75.6 ml/min; Est GFR (African American) 88.1 ml/min; Est GFR (Non-African American) 76.1 ml/min; Magnesium 1.9 mg/dl (1.7-2.4)
--- NOTE | 2023-07-16 14:39 | Discharge Summary ---
Date of Service July 16, 2023 Admission HPI Per Admitting Provider Kvng Yoder is a 73-year-old male presenting with progressive bilateral lower extremity edema. Patient reports that he typically sleeps in a recliner chair with his feet propped up. However, his recently fell and broke her arm and has been sleeping in his chair for the last 1.5 weeks. Patient has been sleeping in an office chair with his legs dangling down. He reports significant bilateral lower extremity edema and heaviness/pain progressive over the last 1.5 weeks. He denies fever or chills. No history of CHF, liver disease or kidney disease. He does get edema at the end of the day which typically resolves by elevating his legs. No chest pain, palpitations or shortness of breath. Patient denies orthopnea but reports that he sleeps sitting upright in a chair because he breathes easier. This is stable and unchanged. He reports swelling in his hands as well. No additional complaints In the ER he is afebrile, hypertensive otherwise hemodynamically stable. Adequate oxygenation on room air ER course: Lasix 40 mg IV Principal Diagnosis venous stasis dermatitis Discharge Exam pt has reddened hardened lower legs, somewhat tender has some looseness of skin edema is 1+ but improved Discharge Data Allergies Allergy/AdvReac Type Severity Reaction Status Date / Time Iodinated Contrast Media Allergy Unknown UNKNOWN Verified 07/14/23 21:32 REACTION iodine Allergy Unknown TOPICAL Verified 07/14/23 21:32 REDNESS AND EDEMA Consultations 07/14/23 21:33 ED Decision to Admit Stat Ordered Studies 07/14/23 19:42 CT Abdomen and Pelvis [CT abd pelvis wo con] Stat Hospital Course (1) Bilateral edema of lower extremity: 73-year-old male presenting with 1-1/2 weeks of progressive bilateral lower extremity edema. This occurs in the setting of him sleeping in a chair with his legs dangling. Patient denies cough, shortness of breath or worsening orthopnea. Labs as above with elevated TSH = 23, normal T4 Patient has been given Lasix 40 mg IV with good diuretic effect, feels some subjective improvement and will be given pm dose 07/15/23 Adjustment of Synthroid Echo with preserved EF, elevated r heart pressures, mild diastolic dysfunction (2) Hypothyroidism: Chronic. Elevated TSH = 23 with normal T4. Patient reports that he takes his medication. He is currently taking Synthroid 250 mcg daily. did increase to 275 mcg daily Patient should follow-up with outpatient PCP for repeat TFTs in 4 to 6 weeks (3) Hypertension: chronic stable blood pressure. Continue spironolactone 25 mg p.o. daily ramipril (4) GERD (gastroesophageal reflux disease): Chronic. Stable. Continue omeprazole (5) Dyslipidemia: Chronic. Stable. Continue atorvastatin 80 mg p.o. every afternoon (6) Diabetes mellitus type 1, uncontrolled: Last hemoglobin A1c = 8.7 on 07/12/2023 Lantus 10 units twice daily with insulin sliding scale due to elevated glucose did have one dose NPH, and increased lantus to 15 Codefull per discussion with patient at time of admission Total Time Total Time Spent Total Time Spent (In Minutes): It required greater than 30 minutes to prepare this patient for discharge. Discharge Plan Discharge Items Patient Disposition: Home - Self-Care Reason For Visit: BILATERAL LE EDEMA Discharge Diagnosis: venous stasis dermatitis thyroid medicine adjustment Activity: Resume your previous activity Non-emergency contact: Primary Care Provider Call non-emergency contact if: your symptoms worsen Follow-up/Referrals: Belinda Moreira MD [Primary Care Provider] - Diet: Low Sodium (2gm) Addtl Attending Provider Instructions: Chronic venous insufficiency (CVI) happens when your leg veins become damaged and cant work as they should. Normally, valves in your leg veins keep blood flowing back up to your heart. But CVI damages those valves, causing blood to pool in your legs. This increases pressure in your leg veins and causes symptoms like swelling and ulcers. Treatment for chronic venous sufficiency involves lifestyle changes and compression therapy. If these measures arent enough, your provider may recommend a procedure or surgery. The best treatment for you depends on how far your condition has progressed and other medical conditions you have. Your provider will tailor treatment to your individual needs. The goals of treatment are to: * Help your blood flow better in your veins. * Help ulcers heal and limit their chances of coming back. * Improve your skins appearance. * Reduce pain and swelling. Lifestyle changes Usually, providers recommend lifestyle changes as the first method of treatment for CVI. These include: * Leg elevation: Lifting your legs above the level of your heart can help reduce pressure in your leg veins. Your provider may suggest you do this for 30 minutes or longer at least three times per day. * Exercise: Walking and otherforms of exercise [email or web address] can help blood flow better in your leg veins. Each time you take a step, your calf muscle squeezes and helps your veins pump blood back up to your heart. This calf muscle pump is known as your second heart. It helps blood in your legs defy gravity, and its vital for your circulation. So, making your calf muscles stronger can help improve your blood flow. Your provider may also recommend foot and ankle flexing exercises. * Weight management: Extra weight can put pressure on your veins and damage the valves. Ask your provider what a healthy weight is for you. Work with your provider to come up with a healthy and manageable plan for achieving that weight. Compression therapy Providers commonly recommend compression therapy for treating CVI. Compression therapy helps ease swelling and discomfort in your legs. There are many types of compression bandages and stockings. Some offer more compression than others. Very tight stockings require a prescription. Some stockings are graduated, meaning theyre tighter down by your ankles and less tight further up your leg. Its essential that you follow your providers guidance on the type of compression you need and when to use it. Many people with CVI struggle to wear compression stockings over the fdc. But compression therapy is very important to help your veins work better and ease your symptoms. If you struggle with compression therapy, talk with your provider. You may need a different type of stocking. Or, your provider may offer advice to make the treatment plan more doable for you. Living with chronic venous insufficiency? Your provider will tell you how to manage CVI at home. Some general tips include: * Avoid long periods of standing or sitting. On long car or plane rides, flex and extend your legs, feet and ankles about 10 times every 30 minutes. This helps your blood flow through your leg veins. If you have to stand for a while, take breaks often to sit down and elevate your feet. * Check your skin.Each time you shower, check your skin. If you notice any changes, like new ulcers, call your provider. * Elevate your legs. When sitting or lying down, elevate your legs above the level of your heart. * Exercise on a regular basis. Walking is especially helpful for your leg veins. * Manage your weight. Keep a weight thats healthy for you. Talk with your provider about what that weight is. * Practice good skin hygiene. Wash and moisturize your skin every day. Ask your provider what kind of moisturizer is best for your skin. Keeping your skin moisturized will help prevent flaking and cracks, which could become infected. Your provider may also recommend creams to reduce itching, protect your skin or prevent fungal infections. * Wear compression stockings if your provider recommends them. This is one of the best ways to manage CVI. There are many different types, so follow your providers guidance on which type is best for you. Also, ask your provider how best to wash and care for your stockings. When should I see my healthcare provider? See your provider if you have any risk factors for chronic venous insufficiency. Your provider can assess your risk factors and help you lower them. If you have CVI, keep all your medical appointments, and follow your providers guidance on when to return. Call your provider if: * You have any questions about your condition. * You have new or changing symptoms. * Your compression stockings dont fit right. There shouldnt be any bunching. Elastic stockings that dont fit right can make your condition worse by blocking blood flow in the area where theyre bunched up. Addtl Retirement Manager Provider Instructions: please hve your thyroid checked in about 6 weeks by your primary care Pending Studies at Discharge: No Stand-Alone Forms: [facility], Smoking Cessation Medications and DC Order Prescriptions: Continued (DME) pen needle, diabetic [BD Ultra-Fine Verito Pen Needle] 32 gauge x 5/32" needle See Rx Instructions .ROUTE .MEDSUPPLY Qty: 500 3RF Rx Instructions: Use 5 daily to inject insulin metformin 500 mg tablet extended release 24hr 1,000 mg PO DAILY Qty: 180 3RF calcitriol 0.5 mcg capsule 0.5 mcg PO DAILY Qty: 90 1RF escitalopram oxalate 20 mg tablet 20 mg PO DAILY Qty: 90 3RF insulin lispro [Humalog KwikPen Insulin] 100 unit/mL insulin pen See Rx Instructions .ROUTE .COMPLEX Qty: 60 3RF Rx Instructions: Inject per sliding scale up to 60 units per day; atorvastatin 80 mg tablet 80 mg PO QPM Qty: 90 3RF Rx Instructions: for cholesterol ramipril 10 mg capsule 10 mg PO DAILY Qty: 90 3RF cyanocobalamin (vitamin B-12) 2,500 mcg tablet 2,500 mcg PO DAILY (DME) Dexcom G6 Sensor Device See Rx Instructions .Route Qty: 3 0RF Rx Instructions: As directed omeprazole 40 mg capsule,delayed release(DR/EC) 40 mg PO DAILY Qty: 30 2RF spironolactone [Aldactone] 25 mg tablet 25 mg PO DAILY Qty: 90 3RF levothyroxine 200 mcg tablet 200 mcg PO DAILY MDD 250 mcg Qty: 90 1RF Rx Instructions: Take daily with Levothyroxine 50mcg for total daily dose of 250mcg. multivitamin Tablet 1 tab PO QAM Ocuvite Adult 50 Plus 250-5-1 mg Capsule 1 cap PO QAM Simbrinza 1-0.2 % Drops,Suspension 1 drp OPHTHALMIC (EYE) BID triamcinolone acetonide [Nasacort] 55 mcg aerosol,spray 2 spray intranasal DAILY PRN (Reason: Nasal Congestion) Rx Instructions: administer into each nostril insulin glargine [Lantus Solostar U-100 Insulin] 100 unit/mL (3 mL) insulin pen 25 unit subcut .Q NOON Changed levothyroxine 75 mcg capsule 75 mcg PO DAILY Qty: 30 4RF Discharge Orders: Discharge Order (Routine); Ordered 07/16/23 Ordered By: Jevon Barboza Admission Data Admit Date/Time: 07/14/23 22:19 Attending Provider: Jevon Barboza Admit Provider: Rachelle Yanes Primary Care Provider: Belinda Moreira Other Providers: Rachelle Yanes Coding Level of Care Code 32107 INP/OBS DISCH >30 MIN Diagnoses Bilateral edema of lower extremity R60.0 Acquired hypothyroidism E03.9 Hypothyroidism type: acquired Essential hypertension I10 Hypertension type: essential hypertension GERD (gastroesophageal reflux disease) K21.9 Dyslipidemia E78.5 Diabetes mellitus type 1, uncontrolled E10.65
== END 2023-07-16 18:05 | disposition home or self-care (01) ==
LOC: 3W 16:01 → ED 16:01 → SUATTDRO 22:19 → 3W 07-15 00:05
DX: Z91.041 Radiographic dye allergy status; I10 Essential (primary) hypertension; Z79.899 Other long term (current) drug therapy; E78.5 Hyperlipidemia, unspecified; E03.9 Hypothyroidism, unspecified; K21.9 Gastro-esophageal reflux disease without esophagitis; E10.65 Type 1 diabetes mellitus with hyperglycemia; I87.2 Venous insufficiency (chronic) (peripheral); Z79.84 Long term (current) use of oral hypoglycemic drugs; Z79.4 Long term (current) use of insulin

== ENCOUNTER 2023-08-03 10:49 | Inpatient (IN) ==
[2023-08-03] MEDS: SODIUM CHLORIDE 0.9% 500 ML IV ONE ×2 (11:07→12:39)
[2023-08-03] MEDS: fentaNYL citrate PF 100 MCG/2 ML VIAL IV STA (11:12)
--- NOTE | 2023-08-03 11:12 | Emergency Department Note ---
Impression & Plan DKA (diabetic ketoacidosis), Right rib fracture, Ground-level fall ED Provider Note Name: MILLICENT HARVEY Age: 73 Sex: Male Arrives Via: Ambulance Informant: Patient, EMS who gave report of bedside ED Provider: Rafiq Larson MD Chief Complaint: Rib pain Impression: As per impression above Medical Decision Makin-year-old gentleman with insulin-dependent diabetes and chronic ambulatory dysfunction arrives for evaluation of acute right chest trauma. Patient tripped and fell landing against PNO bench on right lateral chest. He has significant tenderness palpation of the right chest. Chest x-ray reveals no evidence of pneumothorax. He was sent for CT imaging of the head neck chest and abdomen pelvis given trauma. His laboratory workup during this reveals significant elevation of his blood sugar and moderate acidosis. This is consistent with DKA. He was started with 1 L normal saline bolus which was followed by insulin bolus/drip. CT of the chest reveals 2 right rib fractures without pneumothorax or hemothorax. Patient is tolerating pain a bit better with some IV narcotics. Given otherwise unremarkable imaging I do not feel he requires transfer to higher level of care trauma center. He will clearly need hospitalization given his DKA and need for pain medications. Hospitalist consulted for further management. At this point I do not see a clear evidence of infectious etiology. With normal white blood cell count, no hypotension I do not feel we need to do septic workup at this time. Of note patient with chronic falls. He has no neurodeficits on examination. I do not feel this is secondary to acute stroke. Triage/Nursing Notes reviewed by Me Differential:Infection, dehydration, metabolic abnormality, hypo/hyperglycemia, electrolyte disturbance, anemia, hypoxia, cardiac sources, intracerebral event, toxicologic, neurologic, as well as other pathologies. Vital Signs: reviewed and remarkable for mild tachycardia Interventions: Normal Saline bolus 1 L IV, insulin drip, fentanyl IV, Dilaudid IV Labs:ED labs Reviewed by me and remarkable for elevated blood sugar, acidosis Imagin view chest x-ray as per my interpretation questionable acute fractures of the lateral aspect of mid ribs. Old fracture of ribs [address] of the head without contrast as per my informal interpretation no intracranial hemorrhage or mass effect. Confirmed by radiologist CT of the cervical spine without contrast as per my informal interpretation reveals no evidence of fracture or dislocation. There is moderate arthritic findings noted. Confirmed by radiologist. CT of the chest without contrast as per my informal interpretation reveals 2 lateral rib fractures (seventh and eighth ribs) without evidence of hemo or pneumothorax. Old fractures noted throughout. Confirmed by radiologist. CT of the ab pelvis without contrast as per my informal interpretation reveals no intra-abdominal free fluid or perforation. Confirmed by radiologist. Cardiac/Tele Monitoring: Cardiac Monitoring: An Order was placed for continuous cardiac monitoring. The monitor shows a rate of 90 with a normal sinus rhythm. Consults:[place] Hospitalist Plan: Disposition:Hospitalization. Condition: Fair History of Present Illness: 73-year-old gentleman arrives for evaluation of chest trauma. Patient notes that he is chronically unsteady usually using a cane to get around. He tripped and fell this morning landing on his right side against a bench. He primarily hit his right mid chest. Notes significant pain with deep inspiration and movement. Also has some mild left hip pain. He did not strike his head and has no headache or neck pain. He has no neurodeficits. He states he follows pretty regularly. Does admit that his blood sugars been running a bit high recently. EMS reports blood sugar of over 500. Patient denies that he is any weaker or more unsteady than typical. Denies any focal neurologic deficits. Denies any chest pain other than the right rib pain. Denies any difficulty breathing recently other than the pain with breathing following trauma. He is not having any abdominal pain urinary symptoms or other concerns. Does have chronic edema in his legs which is relatively stable. Past Medical History:See Below Home Medications:See Below Allergies:iv dye Vitals:Blood Pressure: 151/62, Pulse 106, RR 14, T 36.8C, O2 99% on RA Physical Exam: GENERAL: Patient is uncomfortable appearing and in moderate distress. Dry appearing HEAD: AT/NC NECK: AT, no step off CHEST: Significant point TTP over right lower lateral ribs, no crepitus appreciated. RESPIRATORY: No dyspnea. Clear to auscultation and equal bilaterally. CARDIOVASCULAR: Tachy.No murmur appreciated. GASTROINTESTINAL: Abdomen soft, non-tender, no peritonitis. BACK: No midline tenderness, mild right CVA tenderness EXTREMITIES: Normal motion all extremities, no cyanosis, ++ bilateral lower leg edema. NEUROLOGIC: Alert and oriented. No focal neurologic deficits appreciated SKIN: No rash, no jaundice, no diaphoresis. PSYCH: Appropriate GCS: 15 ED Course: Times/Reassessments: Patient is feeling bit better after some IV narcotics. He is agreeable to hospitalization. Critical Care: I have personally spent 40 minutes of critical care time in the direct management of this patient. Acidosis secondary to DKA requiring IV insulin drip and need for extensive trauma work up due to fall/injury. This was a life/limb threatening event. This 40 minutes is in excess of all separately billable procedures. Rafiq Larson MD Past Med/Surg History Medical History H/O osteoporotic pathological fracture ribs Osteoporosis Left leg cellulitis Edema, lower extremity Sensorineural hearing loss of both ears Chronic pain of right knee Osteoarthritis Glaucoma Temporomandibular joint disorder NO LOCKING Surgical History H/O cystoscopy History of tonsillectomy H/O colonoscopy Hx of foot surgery DEBRIDEMENT RIGHT FOOT H/O hand surgery RIGHT THUMB History of tooth extraction History of cataract surgery R/L Family History Father , age 84 - pulmonary embolism after hip surgery Pulmonary embolism Unknown Leukemia Diabetes Cancer Hypertension Mother , age 98 - biliary sepsis/cholecystitis? No problems noted. Other No family history of adverse response to anesthesia No family history of bleeding disorder Denies family history of Ovarian cancer Prostate cancer Myocardial infarction Breast cancer Colorectal cancer Stroke Social History Smoking Status: Never smoker Tobacco Type: Cigarettes Age Started Using Tobacco: 16; Age Quit Using Tobacco: 21; packs per day: 1; Second Hand Exposure: No; Do You Dip or Chew Tobacco: No; Tobacco Cessation Education Requested by Patient: No Hx Alcohol Use: No Hx Substance Use: No Preferred Language: Greenlandic Communication Ability: Effective Communication Ability Comment: legally blind Visual Impairment: Severely Limited Hearing Ability: Normal Fruit Stuffer Required: No Beliefs That Will Affect Care: None marital status: Current Living Situation: Spouse Current Living Situation Comment: lives with in [place] current 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 status: 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 How many Children do You have: 2 How many Children do You have Comment: daughters Other Information That Helps Us Care for You: No Feels Safe at Home: Yes Safety Concerns: Feels Safe At This Time Childhood Exposure to Second-Hand Smoke: Yes caffeine: Yes Dental Care, Regularly: No Physical Activity Frequency: Does not Exercise Seatbelt Use: always Sunscreen Use: No Assistive Devices: None Allergies Allergies Allergy/AdvReac Type Severity Reaction Status Date / Time Iodinated Contrast Media Allergy Unknown UNKNOWN Verified 08/03/23 12:56 REACTION iodine Allergy Unknown TOPICAL Verified 08/03/23 12:56 REDNESS AND EDEMA Home Meds Home Medications Medication Instructions Recorded Confirmed brinzolamide 1 %-brimonidine 0.2 % 1 drp ophthalmic (eye) BID 07/08/18 08/03/23 eye drops,suspension (Simbrinza) multivitamin 1 tab PO QAM 07/08/18 08/03/23 vit C,E,zinc,copper-[id number] 250 1 cap PO QAM 07/08/18 08/03/23 mg-lutein 5 mg-zeaxanthin 1 mg capsule (Ocuvite Adult 50 Plus) cyanocobalamin (vitamin B-12) 2,500 mcg PO DAILY 12/08/18 08/03/23 2,500 mcg tablet insulin glargine 100 unit/mL (3 25 unit subcut UD 07/14/23 08/03/23 mL) subcutaneous pen (Lantus Solostar U-100 Insulin) doxycycline hyclate 100 mg tablet 100 mg PO BID 07/30/23 08/03/23 levothyroxine 200 mcg tablet See Rx Instructions .Route .COMPLEX 08/03/23 08/03/23 levothyroxine 50 mcg tablet See Rx Instructions .Route .COMPLEX 08/03/23 08/03/23 ramipril 10 mg capsule 10 mg PO HS 08/03/23 08/03/23 spironolactone 25 mg tablet 25 mg PO QAM 08/03/23 08/03/23 (Aldactone) Previous Rx's Medication Instructions Recorded blood-glucose sensor (Dexcom G6 #3 ea 10/09/21 Sensor device) metformin 500 mg tablet,extended 1,000 mg (2 x 500 mg) PO DAILY 05/31/22 release 24hr (osmotic) #180 tabs calcitriol 0.5 mcg capsule 0.5 mcg PO DAILY #90 caps 07/09/22 escitalopram oxalate 20 mg tablet 20 mg PO DAILY #90 tabs 07/25/22 Humalog KwikPen Insulin 100 See Rx Instructions .Route 10/30/22 unit/mL subcutaneous (insulin .COMPLEX #60 mL lispro) omeprazole 40 mg capsule,delayed 40 mg PO DAILY #30 caps 11/09/22 release atorvastatin 80 mg tablet 80 mg PO QPM #90 tabs 12/27/22 furosemide 40 mg tablet 40 mg PO DAILY 4 days #4 tabs 07/25/23 BD Ultra-Fine Verito Pen Needle 32 #500 ea 07/29/23 gauge x 5/32" (pen needle, diabetic) glucagon 1 mg/0.2 mL subcutaneous 1 mg (0.2 mL) subcut ONCE PRN 07/30/23 auto-injector (Gvoke HypoPen severe hypoglycemia #0.2 mL 1-Pack) Results & Data (ED) Vital Signs Vital Signs - 24 hr 08/03/23 10:56 08/03/23 10:59 08/03/23 11:17 Temperature 36.8 C Temperature Source Oral Pulse Rate 104 H 106 H 104 H Pulse Rate from SpO2 Sensor 104 H Respiratory Rate 20 14 Blood Pressure 151/62 H 151/62 H Blood Pressure Mean 91 91 Pulse Oximetry 98 99 Sepsis Recent Fever Within 48 Hours No Sepsis New/Unexplained Change in Mental Status No Sepsis Action Taken by Nursing No Action Required 08/03/23 11:30 08/03/23 12:21 08/03/23 12:30 Temperature Temperature Source Pulse Rate 107 H 110 H 111 H Pulse Rate from SpO2 Sensor 107 H 105 H Respiratory Rate 16 11 L 26 H Blood Pressure 154/68 H 150/66 H 149/76 H Blood Pressure Mean 96 94 100 Pulse Oximetry 97 91 Sepsis Recent Fever Within 48 Hours Sepsis New/Unexplained Change in Mental Status Sepsis Action Taken by Nursing 08/03/23 13:00 08/03/23 13:00 Temperature Temperature Source Pulse Rate 113 H Pulse Rate from SpO2 Sensor 114 H Respiratory Rate 21 Blood Pressure 132/75 Blood Pressure Mean 86 Pulse Oximetry 99 Sepsis Recent Fever Within 48 Hours Sepsis New/Unexplained Change in Mental Status Sepsis Action Taken by Nursing Laboratory Data 08/03/23 11:00 08/03/23 15:49 Lab Results 08/03/23 08/03/23 Range/Units 11:00 11:12 WBC 8.25 (4.8-10.8) K/ul RBC 3.88 L (4.70-6.10) M/uL Hgb 11.3 L (14.0-18.0) g/dl POC Hgb 12.2 L (14.0-18.0) g/dl Hct 36.5 L (42.0-52.0) % POC Hct 36 L (42-52) % MCV 94.1 (80.0-100.0) fL MCH 29.1 (25.0-34.0) pg MCHC 31.0 L (32.0-36.0) g/dL RDW Std Deviation 49.6 H (36.4-46.3) fL RDW Coeff of Roland 14.4 (11.5-14.5) % Plt Count 211 (130-400) K/uL MPV 10.1 (9.4-12.4) fL Immature Gran % (Auto) 0.5 % Neut % (Auto) 86.8 % Lymph % (Auto) 8.5 % [place] % (Auto) 3.2 % Eos % (Auto) 0.6 % Baso % (Auto) 0.4 % Neut # (Auto) 7.17 H (1.40-6.50) K/uL Lymph # (Auto) 0.70 L (1.20-3.40) K/uL [place] # (Auto) 0.26 (0.11-0.59) K/uL Eos # (Auto) 0.05 (0.00-0.50) K/uL Baso # (Auto) 0.03 (0.00-0.20) K/uL Immature Gran # (Auto) 0.04 (0.01-0.20) K/uL VBG pH 7.22 L (7.36-7.41) VBG pCO2 32 L (38-50) mmHg VBG pO2 43 mmHg VBG HCO3 13 mmol/L VBG O2 Saturation 69.2 % VBG Base Excess -13.4 mEq/L POC Sodium 133 L (135-144) mmol/L Sodium 133 L (136-145) mmol/L POC Potassium 4.9 (3.3-5.0) mmol/L Potassium 4.9 (3.5-5.1) mmol/L POC Chloride 103 (101-112) mmol/L Chloride 99 (98-107) mmol/L Carbon Dioxide 14 L (21-32) mmol/L POC Total CO2 16 L (24-31) mmol/L Anion Gap 20 H (3-11) POC Anion Gap 20.0 (16-25) mmol/L POC BUN 19 H (7-18) mg/dl BUN 21 (6-23) mg/dl Creatinine 1.12 (0.6-1.4) mg/dl POC Creatinine 1.0 (0.6-1.3) mg/dl Est Cr Clr Drug Dosing 68.8 ml/min Est GFR ( Amer) 74.1 ml/min Est GFR (Non-Af Amer) 63.9 ml/min BUN/Creatinine Ratio 18.8 (10-20) Glucose 628 H* (70-99(Fasting)) mg/dl POC Glucose (other) 640 H* (70-99) mg/dl Estimat Average Glucose 206 mg/dl Hemoglobin A1c 8.8 H (4.5-5.6) % Calcium 8.4 L (8.6-10.3) mg/dl POC Ioniz Calcium Guillermo 1.10 L (1.12-1.32) mmol/l Phosphorus 3.4 (2.5-4.9) mg/dl Magnesium 1.9 (1.7-2.4) mg/dl Total Bilirubin 0.7 (0.2-1.0) mg/dl Direct Bilirubin 0.2 (0-0.2) mg/dl AST 16 (13-39) U/L ALT 13 (7-52) U/L Alkaline Phosphatase 108 H (34-104) U/L Total Protein 6.6 (6.0-8.3) gm/dl Albumin 3.9 (3.4-5.0) gm/dl Lipase 4 L (11-82) U/L Administered Medications Acetaminophen (Acetaminophen 325 Mg Tab) 650 mg PO QID ALEX Stop: 09/02/23 16:59 Last Admin: 08/03/23 17:58 Dose: 650 mg Documented By: KJS Insulin Human Regular 250 (units/ Sodium Chloride) 250 mls @ 8.6 mls/hr IV .Q24H ALEX; Protocol Stop: 09/02/23 11:44 Last Titration: 08/03/23 17:43 Dose: 8.6 units/hr, 8.6 mls/hr Documented By: ALEJANDRINA Co-signed By: ELIAS Titration: 08/03/23 17:00 Dose: 0 units/hr, 0 mls/hr Documented By: ALEJANDRINA Co-signed By: ELIAS Titration: 08/03/23 15:15 Dose: 14.4 units/hr, 14.4 mls/hr Documented By: ALEJANDRINA Co-signed By: ELIAS Titration: 08/03/23 13:39 Dose: 12 units/hr, 12 mls/hr Documented By: DIVINA Co-signed By: VIVIAN Admin: 08/03/23 12:20 Dose: 10 units/hr, 10 mls/hr Documented By: DIVINA Co-signed By: VIVIAN Magnesium Sulfate/Dextrose (Magnesium Sulfate / D5w) 1 gm in 100 mls @ 50 mls/hr IV Q2H [facility] Stop: 08/03/23 21:14 Last Admin: 08/03/23 17:59 Dose: 50 mls/hr Documented By: ALEJANDRINA Potassium Chloride/Sodium Chloride (1/2 Nss + 20meq Kcl 1000ml) 20 meq in 1,000 mls @ 110 mls/hr IV .Q9H6M ALEX Stop: 09/02/23 17:59 Last Admin: 08/03/23 18:00 Dose: 110 mls/hr Documented By: ALEJANDRINA Insulin Aspart (Insulin Aspart Per Unit Charge) 0 units SC ACHS [facility] Stop: 09/02/23 16:29 Last Admin: 08/03/23 17:21 Dose: Not Given Documented By: ALEJANDRINA Morphine Sulfate (Morphine Sulfate 4 Mg/Ml 1 Ml Carp\\Vial) 3 mg IV Q3H PRN PRN Reason: Severe Pain (Scale 7, 8, 9,10) Stop: 08/17/23 15:37 Last Admin: 08/03/23 15:54 Dose: 3 mg Documented By: ALEJANDRINA Discontinued Medications Fentanyl Citrate (Fentanyl Citrate Pf 100 Mcg/2 Ml Vial) 50 mcg IV NOW STA Stop: 08/03/23 10:55 Last Admin: 08/03/23 11:12 Dose: 50 mcg Documented By: VIVIAN Hydromorphone HCl (Hydromorphone Inj 0.5 Mg/0.5 Ml Syr) 0.5 mg IV NOW STA Stop: 08/03/23 12:27 Last Admin: 08/03/23 12:37 Dose: 0.5 mg Documented By: DIVINA Sodium Chloride (Nss) 500 mls @ 999 mls/hr IV .Q31M ONE Stop: 08/03/23 11:24 Last Infusion: 08/03/23 11:39 Dose: Infused Documented By: Admin: 08/03/23 11:07 Dose: 999 mls/hr Documented By: DIVINA Sodium Chloride (Nss) 500 mls @ 999 mls/hr IV .Q31M ONE Stop: 08/03/23 12:56 Last Infusion: 08/03/23 14:53 Dose: Infused Documented By: Admin: 08/03/23 12:39 Dose: 999 mls/hr Documented By: DIVINA Lactated Ringer's (Lr) 1,000 mls @ 999 mls/hr IV .Q1H1M ONE Stop: 08/03/23 14:09 Last Infusion: 08/03/23 14:52 Dose: Infused Documented By: Admin: 08/03/23 13:35 Dose: 999 mls/hr Documented By: DIVINA Lactated Ringer's (Lr) 1,000 mls @ 110 mls/hr IV .Q9H6M ALEX Stop: 09/02/23 14:59 Last Admin: 08/03/23 16:33 Dose: 110 mls/hr Documented By: ALEJANDRNIA Piperacillin Sod/Tazobactam (Sod 4.5 gm/ Dextrose) 100 mls @ 200 mls/hr IV 1545 ONE; Protocol Stop: 08/03/23 16:14 Last Admin: 08/03/23 17:58 Dose: 200 mls/hr Documented By: ALEJANDRINA Lidocaine (Lidocaine 5% 1 Patch) 1 patch TD NOW STA Stop: 08/03/23 15:39 Last Admin: 08/03/23 17:58 Dose: 1 patch Documented By: ALEJANDRINA Miscellaneous (Stat Iv Infusion Titration Per Protocol) 1 each N/A NOW STA Stop: 08/03/23 11:45 Last Admin: 08/03/23 15:00 Dose: 1 each Documented By: ALEJANDRINA Potassium Chloride (Potassium Chloride Crtab 20 Meq Tabcr) 20 meq PO NOW STA Stop: 08/03/23 13:20 Last Admin: 08/03/23 13:36 Dose: 20 meq Documented By: [facility] Imaging Data Radiologist's Impression: Chest X-Ray 08/03/23 10:55 XR chest 1V portable CLINICAL HISTORY: trauma, right rib trauma TECHNIQUE: Single frontal radiograph of the chest was obtained. Comparison: Comparison is made to chest radiograph 08/03/2023 FINDINGS: No lines and tubes are seen. The cardiomediastinal silhouette is normal. The lungs are clear. No evidence of pleural effusion or pneumothorax. IMPRESSION: No acute chest disease. ACT 112: Negative or not required by law. Electronically signed by: Mahamed Gunter M.D. 08/03/2023 12:12 PM Abdomen/Pelvis CT 08/03/23 11:46 CT abd pelvis wo con CLINICAL HISTORY: Right upper flank trauma. Left Hip trauma TECHNIQUE: Helical axial images of the abdomen and pelvis were obtained. Automated dose lowering techniques and/or adjustment according to patient size were utilized for this exam. This exam was performed without intravenous contrast. CT DOSE: 3366.03 mGy.cm COMPARISON: Comparison is made to CT abdomen pelvis 07/14/2023 FINDINGS: Lower chest: For findings above the diaphragm, please see CT chest performed same day. Liver: Unremarkable. No focal lesions are seen. Gallbladder and biliary tree: No calcified gallstones. Normal caliber wall. No intra- or extrahepatic biliary ductal dilation. Pancreas: The pancreas is atrophic. Spleen: Unremarkable. Adrenals: Unremarkable. Kidneys and ureters: Nonobstructive nephrolithiasis is seen. Bladder: Unremarkable. Reproductive organs: Unremarkable. Bowel: The appendix is normal. Lymph nodes Retroperitoneal: Unremarkable. Pelvic: Unremarkable. Mesenteric: Subcentimeter lymph nodes are noted. Peritoneum: Normal. Vessels: Atherosclerotic calcifications are seen. Abdominal wall: A fat-containing umbilical hernia is seen. There is a small amount of fluid. Bones: Degenerative changes in the visualized spine. Fractures of the seventh through 10th ribs are seen. IMPRESSION: Acute fractures of the seventh through 10th ribs are seen. No other acute abnormalities. ACT 112: Negative or not required by law. Electronically signed by: Mahamed Gunter M.D. 08/03/2023 12:[address] 08/03/23 11:46 CT cervical spine wo con CLINICAL HISTORY: Trauma TECHNIQUE: Multidetector row helical CT of the cervical spine was performed without administration of intravenous contrast. Coronal and sagittal reformations were obtained. Automated dose lowering techniques and/or adjustment according to patient size were utilized for this exam. Comparison: Comparison is made to CT cervical spine 02/22/2020 FINDINGS: No acute fractures or subluxations are identified. Degenerative changes are seen in the visualized spine. The alignment is normal. Soft tissues are unremarkable. IMPRESSION: Degenerative changes without evidence of acute bony injury. ACT 112: Negative or not required by law. Electronically signed by: Mahamed Gunter M.D. 08/03/2023 12:[address] 08/03/23 11:46 CT chest diagnostic wo con CLINICAL HISTORY: Trauma, right chest. TECHNIQUE: Multidetector row helical CT of the chest was performed. Coronal and sagittal reformations were obtained. Automated dose lowering techniques and/or adjustment according to patient size were utilized for this exam. Comparison: Comparison is made to CT chest 07/27/2021 FINDINGS: Lungs and pleura: Atelectasis versus scarring is seen in the dependent portions of the lungs. There is a 3 mm nodule in the left upper lobe (series 10 image 33), a 3 mm nodule in the left upper lobe (image 70), 3 mm nodule in the right lower lobe (image #21), and 3 mm nodule in the left lung base (image 188), unchanged from prior exam. Heart and pericardium: Heart size is normal. No pericardial effusion. Vessels: Moderate atherosclerotic changes in the aorta and coronary arteries. Mediastinum and diamond: Subcentimeter lymph nodes are seen. Mildly patulous and fluid-filled esophagus is seen. Chest wall and lower neck: Unremarkable. Abdomen: For findings below the diaphragm, please refer to CT of the abdomen dated the same. Bones: Degenerative changes of the thoracic spine. Old healed rib fractures are seen. There are mildly displaced fractures of the right seventh and eighth ribs. IMPRESSION: 1. There are right seventh and eighth rib fractures. No pneumothorax or other acute abnormalities. 2. Stable pulmonary nodules as above. 3. Fluid-filled esophagus is noted, nonspecific. ACT 112: Negative or not required by law. Electronically signed by: Mahamed Gunter M.D. 08/03/2023 12:[address] 08/03/23 11:46 CT head/brain wo con CLINICAL HISTORY: Trauma Technique: Contiguous axial CT images of the head were acquired from the base of the skull to the vertex without intravenous contrast administration. Images were viewed in brain, subdural and bone windows. Automated dose lowering techniques and/or adjustment according to patient size were utilized for this exam. Comparison: Comparison is made to CT head 02/22/2020 Findings: Areas of decreased attenuation are present in the periventricular and subcortical white matter bilaterally consistent with small vessel ischemic disease. Generalized cerebral atrophy with commensurate enlargement of the ventricles, sulci, and cisterns is also present. There is no acute intracranial hemorrhage or evidence of acute territorial infarction. No shift of the midline structures, mass effect, or extra-axial abnormalities are shown. Atherosclerotic calcifications are present in the intracranial segments of the internal carotid arteries. 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 Imaged portions of the paranasal sinuses and mastoid air cells are clear. The orbits appear normal. There are no acute fractures of the calvaria or scalp swelling. Impression: No acute intracranial hemorrhage, no evidence of acute territorial infarction or other acute intracranial disease process. ACT 112: Negative or not required by law. Electronically signed by: Mahamed Gunter M.D. 08/03/2023 12:13 PM Discharge Plan Visit Data Chief Complaint: Fall ED Provider: Rafiq Larson Discharge Problem: DKA (diabetic ketoacidosis), Right rib fracture, Ground-level fall Patient Disposition: Admitted As Inpatient Discharge Instructions Interventions: ED Discharge Assessment Last Done: 08/03/23 15:00 Discharge Problem: DKA (diabetic ketoacidosis) Qualifiers: Diabetes mellitus type: type 1 Diabetes mellitus complication detail: without coma Qualified Code(s): E10.10 - Type 1 diabetes mellitus with ketoacidosis without coma Right rib fracture Qualifiers: Encounter type: initial encounter Rib fracture type: multiple ribs Fracture type: closed Qualified Code(s): S22.41XA - Multiple fractures of ribs, right side, initial encounter for closed fracture
[2023-08-03 11:25] LABS: iSTAT Hemoglobin 12.2 g/dl (14.0-18.0); iSTAT Ionized Calcium 1.1 mmol/l (1.12-1.32); iSTAT Potassium 4.9 mmol/L (3.3-5.0)
[2023-08-03 11:28] LABS: Base Excess VBG -13.4 mEq/L; HCO3 VBG 13 mmol/L; Oxygen Saturation VBG 69.2 %; PCO2 VBG 32 mmHg (38-50); PO2 VBG 43 mmHg; pH VBG 7.22 (7.36-7.41)
[2023-08-03 11:34] LABS: Basophils # (auto) 0.03 K/uL (0.00-0.20); Basophils % (auto) 0.4 %; Eosinophils # (auto) 0.05 K/uL (0.00-0.50); Eosinophils % (auto) 0.6 %; Hematocrit (blood only) 36.5 % (42.0-52.0); Hemoglobin 11.3 g/dl (14.0-18.0); Immature Granulocytes # (auto) 0.04 K/uL (0.01-0.20); Immature Granulocytes % (auto) 0.5 %; Lymphocytes % (auto) 8.5 %; Mean Corpuscular Hemoglobin 29.1 pg (25.0-34.0); Mean Corpuscular Volume 94.1 fL (80.0-100.0); Mean Platelet Volume 10.1 fL (9.4-12.4); Monocytes # (auto) 0.26 K/uL (0.11-0.59); Monocytes % (auto) 3.2 %; Neutrophils # (auto) 7.17 K/uL (1.40-6.50); Neutrophils % (auto) 86.8 %; Platelet Count 211 K/uL (130-400); RDW Coefficient of Variation 14.4 % (11.5-14.5); RDW Standard Deviation 49.6 fL (36.4-46.3); Red Blood Count 3.88 M/uL (4.70-6.10); White Blood Count 8.25 K/ul (4.8-10.8)
[2023-08-03] MEDS ORDERED: GLUCOSE 10 TAB/TUBE PO PRN (11:44)
[2023-08-03] MEDS ORDERED: GLUCOSE 40% GEL 15 GM TUBE PO PRN (11:44)
[2023-08-03] MEDS ORDERED: GLUCAGON FOR INJ 1 MG VIAL SQ PRN (11:44)
[2023-08-03 12:11] LABS: Albumin Level 3.9 gm/dl (3.4-5.0); BUN Creatinine Ratio 18.8 (10-20); Bilirubin Direct 0.2 mg/dl (0-0.2); Bilirubin,Total 0.7 mg/dl (0.2-1.0); Calcium 8.4 mg/dl (8.6-10.3); Creatinine Clr Calc Pharmacy 68.8 ml/min; Est GFR (African American) 74.1 ml/min; Est GFR (Non-African American) 63.9 ml/min; Magnesium 1.9 mg/dl (1.7-2.4); Potassium 4.9 mmol/L (3.5-5.1); Total Protein 6.6 gm/dl (6.0-8.3)
--- NOTE | 2023-08-03 12:13 | XRay Report ---
XR chest 1V portable CLINICAL HISTORY: trauma, right rib trauma TECHNIQUE: Single frontal radiograph of the chest was obtained. Comparison: Comparison is made to chest radiograph 08/03/2023 FINDINGS: No lines and tubes are seen. The cardiomediastinal silhouette is normal. The lungs are clear. No evid ence of pleural effusion or pneumothorax. IMPRESSION: No acute chest disease. ACT 112: Negative or not required by law. Electronically signed by: Mahamed Gunter M.D. 08/03/2023 12:12 PM
--- NOTE | 2023-08-03 12:14 | CT Scan Report ---
CT head/brain wo con CLINICAL HISTORY: Trauma Technique: Contiguous axial CT images of the head were acquired from the base of the skull to the milena mary without intravenous contrast administration. Images were viewed in brain, subdural and bone [facility]. Automated dose lowering techniques and/or adjustment according to patient size were utilized for this exam. Comparison: Comparison is made to CT head 02/22/2020 Findings: Areas of decreased attenuation are present in the periventricular and subcortical white matter bilate rally consistent with small vessel ischemic disease. Generalized cerebral atrophy with commensurate e nlargement of the ventricles, sulci, and cisterns is also present. There is no acute intracranial hem orrhage or evidence of acute territorial infarction. No shift of the midline structures, mass effect, or extra-axial abnormalities are shown. Atherosclerotic calcifications are present in the intracran ial segments of the internal carotid arteries. 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 Imaged portions of the paranasal sinuses and mastoid air cells are clear. The orbits appear normal. There are no acute fractures of the calvaria or scalp swelling. Impression: No acute intracranial hemorrhage, no evidence of acute territorial infarction or other acute intracra nial disease process. ACT 112: Negative or not required by law. Electronically signed by: Mahamed Gunter M.D. 08/03/2023 12:13 PM
--- NOTE | 2023-08-03 12:18 | CT Scan Report ---
CT cervical spine wo con CLINICAL HISTORY: Trauma TECHNIQUE: Multidetector row helical CT of the cervical spine was performed without administration of intravenous contrast. Coronal and sagittal reformations were obtained. Automated dose lowering techn iques and/or adjustment according to patient size were utilized for this exam. Comparison: Comparison is made to CT cervical spine 02/22/2020 FINDINGS: No acute fractures or subluxations are identified. Degenerative changes are seen in the visualized sp ine. The alignment is normal. Soft tissues are unremarkable. IMPRESSION: Degenerative changes without evidence of acute bony injury. ACT 112: Negative or not required by law. Electronically signed by: Mahamed Gunter M.D. 08/03/2023 12:15 PM
[2023-08-03] MEDS: INSULIN REGULAR 250 UNITS in SODIUM CHLORIDE 0.9% 247.5 ML IV SCH (12:20)
[2023-08-03 12:22] LABS: Phosphorus 3.4 mg/dl (2.5-4.9)
--- NOTE | 2023-08-03 12:29 | CT Scan Report ---
CT chest diagnostic wo con CLINICAL HISTORY: Trauma, right chest. TECHNIQUE: Multidetector row helical CT of the chest was performed. Coronal and sagittal reformations were obtained. Automated dose lowering techniques and/or adjustment according to patient size were u tilized for this exam. Comparison: Comparison is made to CT chest 07/27/2021 FINDINGS: Lungs and pleura: Atelectasis versus scarring is seen in the dependent portions of the lungs. There i s a 3 mm nodule in the left upper lobe (series 10 image 33), a 3 mm nodule in the left upper lobe (im age 70), 3 mm nodule in the right lower lobe (image #21), and 3 mm nodule in the left lung base (imag e 188), unchanged from prior exam. Heart and pericardium: Heart size is normal. No pericardial effusion. Vessels: Moderate atherosclerotic changes in the aorta and coronary arteries. Mediastinum and diamond: Subcentimeter lymph nodes are seen. Mildly patulous and fluid-filled esophagus is seen. Chest wall and lower neck: Unremarkable. Abdomen: For findings below the diaphragm, please refer to CT of the abdomen dated the same. Bones: Degenerative changes of the thoracic spine. Old healed rib fractures are seen. There are mildl y displaced fractures of the right seventh and eighth ribs. IMPRESSION: 1. There are right seventh and eighth rib fractures. No pneumothorax or other acute abnormalities. 2. Stable pulmonary nodules as above. 3. Fluid-filled esophagus is noted, nonspecific. ACT 112: Negative or not required by law. Electronically signed by: Mahamed Gunter M.D. 08/03/2023 12:30 PM
[2023-08-03] MEDS: HYDROmorphone INJ 0.5 MG/0.5 ML SYR IV STA (12:37)
--- NOTE | 2023-08-03 12:38 | CT Scan Report ---
CT abd pelvis wo con CLINICAL HISTORY: Right upper flank trauma. Left Hip trauma TECHNIQUE: Helical axial images of the abdomen and pelvis were obtained. Automated dose lowering tech niques and/or adjustment according to patient size were utilized for this exam. This exam was perfor med without intravenous contrast. CT DOSE: 3366.03 mGy.cm COMPARISON: Comparison is made to CT abdomen pelvis 07/14/2023 FINDINGS: Lower chest: For findings above the diaphragm, please see CT chest performed same day. Liver: Unremarkable. No focal lesions are seen. Gallbladder and biliary tree: No calcified gallstones. Normal caliber wall. No intra- or extrahepatic biliary ductal dilation. Pancreas: The pancreas is atrophic. Spleen: Unremarkable. Adrenals: Unremarkable. Kidneys and ureters: Nonobstructive nephrolithiasis is seen. Bladder: Unremarkable. Reproductive organs: Unremarkable. Bowel: The appendix is normal. Lymph nodes Retroperitoneal: Unremarkable. Pelvic: Unremarkable. Mesenteric: Subcentimeter lymph nodes are noted. Peritoneum: Normal. Vessels: Atherosclerotic calcifications are seen. Abdominal wall: A fat-containing umbilical hernia is seen. There is a small amount of fluid. Bones: Degenerative changes in the visualized spine. Fractures of the seventh through 10th ribs are s een. IMPRESSION: Acute fractures of the seventh through 10th ribs are seen. No other acute abnormalities. ACT 112: Negative or not required by law. Electronically signed by: Mahamed Gunter M.D. 08/03/2023 12:36 PM
[2023-08-03 12:59] LABS: Estimated Average Glucose 206 mg/dl; Hemoglobin A1C 8.8 % (4.5-5.6)
--- NOTE | 2023-08-03 13:28 | History & Physical Report ---
Date of Service August 03, 2023 Assessment & Plan (1) DKA (diabetic ketoacidosis): Plan: DKA with Glucose > 600PH <7.2, AGAP 20, HCO3 14 - Reports that he did not get any alerts for his BG until on his way to the hosptial - Possibly infective related secondary to left heel wound- see below - LR bolus [id number] now then 110 ML/HR - D5/12NSwith KCL when BG <250 - Replete K orally- 20meq now - Follow labs q4 hour - PH, BMP, MG - Can drink water - no food until glucose <250 - Transition when appropriate (2) Fracture, ribs: Plan: S/P Fall at home- 7th and 8th posterior without pneumothorax or hemothorax noted - multifaceted pain control- tyelnol, lidocaine patch, oxy 5mg q6 prn, morphine q3 for severe pain- rescue narcan available of needed - splinting of of righ side with ICS, CDB - ICS q 1 hour - OOB to chair with assistance TID (3) Foot ulceration: Plan: Left heel ulceration with open skin, errythema and serous drainage - scab on left top of foot- healing - blood cultures x2 and PCT ordered - Will cover with Zosyn at this time for diabetic foot ulcer (4) GERD (gastroesophageal reflux disease): Plan: Continue with PPI - consider Reglan if needed in regards to likely diabetic gastroparesis with vomiting - noted CT imaging with particles in esophagus (5) ROHIT (acute kidney injury): Plan: 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 - Likely related to volume status with DKA - replete intravascular volume- hold KYLE/ARB and diuretics for 24 hours - follow renal indices in morning (6) Hypothyroidism: Plan: Continue Synthroid- chronic stable (7) Hypertension: Plan: Chronic stable - Will hold KYLE/ARB currently with ROHIT - Hold Diuretic Therapy at this time with ROHIT and hypovolemic picture on assessment - replete intravascular volume- likely able to restart in 24 hours - BP likely to be elevated secondary to pain from rib fractures as above- tiered pain control and follow (8) Dyslipidemia: Plan: Continue high intensity statin - atorvastatin 80mg nightly (9) DVT prophylaxis: Plan: SCDS - chemoprophylaxis with Heparin 5000 units sub q q12 hours to start on 08/04/23 at 0900- follow for any bleeding post fall (10) Heart failure: Plan: HFpEF with elevated RVSP - chronic problem not an acute exacerbation at this time - Follow fluid volume status- currently appears hypovolemic with dry mucous membranes, thirst, poor skin turgor - allow to drink to thirst History of Present Illness Chief Complaint: fall Primary Care Provider: Paulina Johns, DO 73 YOM with history of: HFpEF with elevated RVSP, Hypothyroidism, HTN, HLD, DMI uncontrolled, GERD, edema of lower extremities. Patient presents to the EMD today via EMS after he reports getting up around 1030 this morning to go to the restroom, following this he fell over striking his right back on corner of piano bench. His was able to get him up and into chair while EMS came. He was also able to assist getting into stretcher. In the EMD the patient had routine labs performed, CXR, ECG, and VBG performed. He was noted on his imaging to have 7th and 8th rib fractures. These fractures were not associated with pneumothorax or hemothorax. His labs returned with elevated glucose >600, AGAP 20, PH 7.22 and Hco3 of 14- consistent with DKA. He was given 1L in 500ml aliquots for volume and started on insulin infusion. He did receive pain medication in the form of fentanyl for his rib fractures. Hospitalist was consulted for admission. Patient noted to have left heel ulceration and scab on top of left foot, he reports that he was recently started on Antibiotic (doxycycline by his PCP) while awaiting wound care appointment next week. He is with guarding to his right side and arm. Remains with dry mucous membranes as well and reporting of thirst. Patient will be admitted to PCU for insulin infusion and DKA management. He will be given 1L of crystalloid at this time followed by 110ml of LR/hour. Tiered pain control with rescue Narcan will be available. BLood culture and PCT will be drawn. Zosyn for foot ulceration until evaluation completed. CODE: FULL Allergies Allergy/AdvReac Type Severity Reaction Status Date / Time Iodinated Contrast Media Allergy Unknown UNKNOWN Verified 08/03/23 12:56 REACTION iodine Allergy Unknown TOPICAL Verified 08/03/23 12:56 REDNESS AND EDEMA Home Medications Medication Instructions Recorded Confirmed Type brinzolamide 1 %-brimonidine 0.2 % 1 drp ophthalmic (eye) BID 07/08/18 08/03/23 History eye drops,suspension (Simbrinza) multivitamin 1 tab PO QAM 07/08/18 08/03/23 History vit C,E,zinc,copper-momha6z 250 1 cap PO QAM 07/08/18 08/03/23 History mg-lutein 5 mg-zeaxanthin 1 mg capsule (Ocuvite Adult 50 Plus) cyanocobalamin (vitamin B-12) 2,500 mcg PO DAILY 12/08/18 08/03/23 History 2,500 mcg tablet blood-glucose sensor (Dexcom G6 #3 ea 10/09/21 07/30/23 Rx Sensor device) metformin 500 mg tablet,extended 1,000 mg (2 x 500 mg) PO DAILY 05/31/22 08/03/23 Rx release 24hr (osmotic) #180 tabs calcitriol 0.5 mcg capsule 0.5 mcg PO DAILY #90 caps 07/09/22 08/03/23 Rx escitalopram oxalate 20 mg tablet 20 mg PO DAILY #90 tabs 07/25/22 08/03/23 Rx Humalog KwikPen Insulin 100 See Rx Instructions .Route 10/30/22 08/03/23 Rx unit/mL subcutaneous (insulin .COMPLEX #60 mL lispro) omeprazole 40 mg capsule,delayed 40 mg PO DAILY #30 caps 11/09/22 08/03/23 Rx release atorvastatin 80 mg tablet 80 mg PO QPM #90 tabs 12/27/22 08/03/23 Rx insulin glargine 100 unit/mL (3 25 unit subcut UD 07/14/23 08/03/23 History mL) subcutaneous pen (Lantus Solostar U-100 Insulin) furosemide 40 mg tablet 40 mg PO DAILY 4 days #4 tabs 07/25/23 08/03/23 Rx BD Ultra-Fine Verito Pen Needle 32 #500 ea 07/29/23 07/30/23 Rx gauge x 5/32" (pen needle, diabetic) doxycycline hyclate 100 mg tablet 100 mg PO BID 07/30/23 08/03/23 History glucagon 1 mg/0.2 mL subcutaneous 1 mg (0.2 mL) subcut ONCE PRN 07/30/23 08/03/23 Rx auto-injector (Gvoke HypoPen severe hypoglycemia #0.2 mL 1-Pack) levothyroxine 200 mcg tablet See Rx Instructions .Route .COMPLEX 08/03/23 08/03/23 History levothyroxine 50 mcg tablet See Rx Instructions .Route .COMPLEX 08/03/23 08/03/23 History ramipril 10 mg capsule 10 mg PO HS 08/03/23 08/03/23 History spironolactone 25 mg tablet 25 mg PO QAM 08/03/23 08/03/23 History (Aldactone) Past Med/Surg History Medical History H/O osteoporotic pathological fracture ribs Osteoporosis Left leg cellulitis Edema, lower extremity Sensorineural hearing loss of both ears Chronic pain of right knee Osteoarthritis Glaucoma Temporomandibular joint disorder NO LOCKING Surgical History H/O cystoscopy History of tonsillectomy H/O colonoscopy Hx of foot surgery DEBRIDEMENT RIGHT FOOT H/O hand surgery RIGHT THUMB History of tooth extraction History of cataract surgery R/L Family History Father , age 84 - pulmonary embolism after hip surgery Pulmonary embolism Unknown Leukemia Diabetes Cancer Hypertension Mother , age 98 - biliary sepsis/cholecystitis? No problems noted. Other No family history of adverse response to anesthesia No family history of bleeding disorder Denies family history of Ovarian cancer Prostate cancer Myocardial infarction Breast cancer Colorectal cancer Stroke Social History Smoking Status: Never smoker Tobacco Type: Cigarettes Age Started Using Tobacco: 16; Age Quit Using Tobacco: 21; packs per day: 1; Second Hand Exposure: No; Do You Dip or Chew Tobacco: No; Tobacco Cessation Education Requested by Patient: No Hx Alcohol Use: No Hx Substance Use: No Preferred Language: Czech Communication Ability: Effective Communication Ability Comment: legally blind Visual Impairment: Severely Limited Hearing Ability: Normal Job Interviewer Required: No Beliefs That Will Affect Care: None marital status: Current Living Situation: Spouse Current Living Situation Comment: lives with in [place] current 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 status: 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 [employer] How many Children do You have: 2 How many Children do You have Comment: daughters Other Information That Helps Us Care for You: No Feels Safe at Home: Yes Safety Concerns: Feels Safe At This Time Childhood Exposure to Second-Hand Smoke: Yes caffeine: Yes Dental Care, Regularly: No Physical Activity Frequency: Does not Exercise Seatbelt Use: always Sunscreen Use: No Assistive Devices: None Review of Systems Review of Systems: REVIEW OF SYSTEMS: Constitutional: No fever, sweats or chills Eyes: (+) legally blind from DM ENT: normal hearing, no trouble swallowing, mouth dry Respiratory: No cough, sputum, dyspnea at rest or on exertion Cardiovascular: (+) back chest pain from fall, No epigastric or substernal chest pain, tightness or palpitations Abdomen: (+) reflux with nausea, No pain, nausea, vomiting, diarrhea or constipation Neurologic: No weakness, numbness/tingling, or balance problems Psychiatric: No anxiety or depression Skin: (+) dry skin, foot ulcerations Physical Exam Physical Exam: PHYSICAL EXAM: General: awake, alert, no apparent distress Head: Normocephalic, atraumatic ENT: PERRLA, EOMI, no pharyngeal exudate, mucous membranes dry Neuro: AAO x 3, speech clear and appropriate, strength intact bilaterally 5/5, sensation intact and equal all extremities, no pronator drift, cervical spine without pain full ROM without pain, pain to right back below scapula with palpation. Chest: equal rise and fall of the chest, no accessory muscle use, no heaves or thrills, Clear to auscultation, on room air, Cardiac: Regular rate and rhythm, telemetry reviewed- NSR, skin warm dry, cap refill <3 seconds, peripheral pulses +2 no JVD, no murmur, no edema GI: NABS x 4 quadrants, soft, nontender to palpation, no rebound, guarding or tenderness : Spontaneously voiding, no pain, no CVA tenderness, MSK: No cervical pain full ROM, right shoulder/flank pain, left shoulder with full ROM, hips non-tender, pelvis stable, no pain in femur or knees with palpation or manipulation. Psych: Normal mood and affect Skin: Left heel ulceration with peeled back skin, erythema, serous drainage, scab to top of left foot intact, dry scaly skin to bilateral lower extremities from knee to feet. Results & Data Results & Data Vital Signs (Past 12 Hours) Vital Signs Temp Pulse Resp BP Pulse Ox 08/03/23 12:30 111 H 26 H 149/76 H 91 08/03/23 12:21 110 H 11 L 150/66 H 08/03/23 11:30 107 H 16 154/68 H 97 08/03/23 11:17 104 H 08/03/23 10:59 36.8 C 106 H 14 151/62 H 99 08/03/23 10:56 104 H 20 151/62 H 98 Laboratory Results Home Medications brinzolamide 1 %-brimonidine 0.2 % eye drops,suspension (Simbrinza) 1 drp ophthalmic (eye) BID 07/08/18 [History Confirmed 08/03/23] multivitamin 1 tab PO QAM 07/08/18 [History Confirmed 08/03/23] vit C,E,zinc,copper-naboj6e 250 mg-lutein 5 mg-zeaxanthin 1 mg capsule (Ocuvite Adult 50 Plus) 1 cap PO QAM 07/08/18 [History Confirmed 08/03/23] cyanocobalamin (vitamin B-12) 2,500 mcg tablet 2,500 mcg PO DAILY 12/08/18 [History Confirmed 08/03/23] blood-glucose sensor (Live Life 360 G6 Sensor device) #3 ea 10/09/21 [Rx Confirmed 07/30/23] metformin 500 mg tablet,extended release 24hr (osmotic) 1,000 mg (2 x 500 mg) PO DAILY #180 tabs 05/31/22 [Rx Confirmed 08/03/23] calcitriol 0.5 mcg capsule 0.5 mcg PO DAILY #90 caps 07/09/22 [Rx Confirmed 08/03/23] escitalopram oxalate 20 mg tablet 20 mg PO DAILY #90 tabs 07/25/22 [Rx Confirmed 08/03/23] Humalog KwikPen Insulin 100 unit/mL subcutaneous (insulin lispro) See Rx Instructions .Route .COMPLEX #60 mL 10/30/22 [Rx Confirmed 08/03/23] omeprazole 40 mg capsule,delayed release 40 mg PO DAILY #30 caps 11/09/22 [Rx Confirmed 08/03/23] atorvastatin 80 mg tablet 80 mg PO QPM #90 tabs 12/27/22 [Rx Confirmed 08/03/23] insulin glargine 100 unit/mL (3 mL) subcutaneous pen (Lantus Solostar U-100 Insulin) 25 unit subcut UD 07/14/23 [History Confirmed 08/03/23] furosemide 40 mg tablet 40 mg PO DAILY 4 days #4 tabs 07/25/23 [Rx Confirmed 08/03/23] BD Ultra-Fine Verito Pen Needle 32 gauge x 5/32" (pen needle, diabetic) #500 ea 07/29/23 [Rx Confirmed 07/30/23] doxycycline hyclate 100 mg tablet 100 mg PO BID 07/30/23 [History Confirmed 08/03/23] glucagon 1 mg/0.2 mL subcutaneous auto-injector (Gvoke HypoPen 1-Pack) 1 mg (0.2 mL) subcut ONCE PRN severe hypoglycemia #0.2 mL 07/30/23 [Rx Confirmed 08/03/23] levothyroxine 200 mcg tablet See Rx Instructions .Route .COMPLEX 08/03/23 [History Confirmed 08/03/23] levothyroxine 50 mcg tablet See Rx Instructions .Route .COMPLEX 08/03/23 [History Confirmed 08/03/23] ramipril 10 mg capsule 10 mg PO HS 08/03/23 [History Confirmed 08/03/23] spironolactone 25 mg tablet (Aldactone) 25 mg PO QAM 08/03/23 [History Confirmed 08/03/23] Active Medications Dextrose (Dextrose 50% 50 Ml Syringe) 25 - 50 ml IV UD PRN; Protocol PRN Reason: Hypoglycemia Protocol Stop: 09/02/23 11:43 Glucagon (Glucagon For Inj 1 Mg Vial) 1 mg SQ UD PRN; Protocol PRN Reason: Hypoglycemia Protocol Stop: 09/02/23 11:43 Glucose (Glucose 10 Tab/Tube) 4 - 8 tab PO UD PRN; Protocol PRN Reason: Hypoglycemia Treatment Stop: 09/02/23 11:43 Glucose (Glucose 40% Gel 15 Gm Tube) 15 - 30 gm PO UD PRN; Protocol PRN Reason: Hypoglycemia Protocol Stop: 09/02/23 11:43 Insulin Human Regular 250 (units/ Sodium Chloride) 250 mls @ 10 mls/hr IV .Q24H ALEX; Protocol Stop: 09/02/23 11:44 Last Titration: 08/03/23 13:39 Dose: 12 units/hr, 12 mls/hr Lactated Ringer's (Lr) 1,000 mls @ 999 mls/hr IV .Q1H1M ONE Stop: 08/03/23 14:09 Last Admin: 08/03/23 13:35 Dose: 999 mls/hr Insulin Aspart (Insulin Aspart Per Unit Charge) 0 units SC ACHS ALEX Stop: 09/02/23 16:29 Miscellaneous (Carbohydrates For Hypoglycemia ) 15 - 30 gm PO UD PRN PRN Reason: Hypoglycemia Protocol Stop: 09/02/23 11:43 Diagnostic Findings Chest X-Ray 08/03/23 10:55 XR chest 1V portable CLINICAL HISTORY: trauma, right rib trauma TECHNIQUE: Single frontal radiograph of the chest was obtained. Comparison: Comparison is made to chest radiograph 08/03/2023 FINDINGS: No lines and tubes are seen. The cardiomediastinal silhouette is normal. The lungs are clear. No evidence of pleural effusion or pneumothorax. IMPRESSION: No acute chest disease. ACT 112: Negative or not required by law. Electronically signed by: Mahamed Gunter M.D. 08/03/2023 12:12 PM Abdomen/Pelvis CT 08/03/23 11:46 CT abd pelvis wo con CLINICAL HISTORY: Right upper flank trauma. Left Hip trauma TECHNIQUE: Helical axial images of the abdomen and pelvis were obtained. Automated dose lowering techniques and/or adjustment according to patient size were utilized for this exam. This exam was performed without intravenous contrast. CT DOSE: 3366.03 mGy.cm COMPARISON: Comparison is made to CT abdomen pelvis 07/14/2023 FINDINGS: Lower chest: For findings above the diaphragm, please see CT chest performed same day. Liver: Unremarkable. No focal lesions are seen. Gallbladder and biliary tree: No calcified gallstones. Normal caliber wall. No intra- or extrahepatic biliary ductal dilation. Pancreas: The pancreas is atrophic. Spleen: Unremarkable. Adrenals: Unremarkable. Kidneys and ureters: Nonobstructive nephrolithiasis is seen. Bladder: Unremarkable. Reproductive organs: Unremarkable. Bowel: The appendix is normal. Lymph nodes Retroperitoneal: Unremarkable. Pelvic: Unremarkable. Mesenteric: Subcentimeter lymph nodes are noted. Peritoneum: Normal. Vessels: Atherosclerotic calcifications are seen. Abdominal wall: A fat-containing umbilical hernia is seen. There is a small amount of fluid. Bones: Degenerative changes in the visualized spine. Fractures of the seventh through 10th ribs are seen. IMPRESSION: Acute fractures of the seventh through 10th ribs are seen. No other acute abnormalities. ACT 112: Negative or not required by law. Electronically signed by: Mahamed Gunter M.D. 08/03/2023 12:[address] 08/03/23 11:46 CT cervical spine wo con CLINICAL HISTORY: Trauma TECHNIQUE: Multidetector row helical CT of the cervical spine was performed without administration of intravenous contrast. Coronal and sagittal reformations were obtained. Automated dose lowering techniques and/or adjustment according to patient size were utilized for this exam. Comparison: Comparison is made to CT cervical spine 02/22/2020 FINDINGS: No acute fractures or subluxations are identified. Degenerative changes are seen in the visualized spine. The alignment is normal. Soft tissues are unremarkable. IMPRESSION: Degenerative changes without evidence of acute bony injury. ACT 112: Negative or not required by law. Electronically signed by: Mahamed Gunter M.D. 08/03/2023 12:[address] 08/03/23 11:46 CT chest diagnostic wo con CLINICAL HISTORY: Trauma, right chest. TECHNIQUE: Multidetector row helical CT of the chest was performed. Coronal and sagittal reformations were obtained. Automated dose lowering techniques and/or adjustment according to patient size were utilized for this exam. Comparison: Comparison is made to CT chest 07/27/2021 FINDINGS: Lungs and pleura: Atelectasis versus scarring is seen in the dependent portions of the lungs. There is a 3 mm nodule in the left upper lobe (series 10 image 33), a 3 mm nodule in the left upper lobe (image 70), 3 mm nodule in the right lower lobe (image #21), and 3 mm nodule in the left lung base (image 188), unc hanged from prior exam. Heart and pericardium: Heart size is normal. No pericardial effusion. Vessels: Moderate atherosclerotic changes in the aorta and coronary arteries. Mediastinum and diamond: Subcentimeter lymph nodes are seen. Mildly patulous and fluid-filled esophagus is seen. Chest wall and lower neck: Unremarkable. Abdomen: For findings below the diaphragm, please refer to CT of the abdomen dated the same. Bones: Degenerative changes of the thoracic spine. Old healed rib fractures are seen. There are mildly displaced fractures of the right seventh and eighth ribs. IMPRESSION: 1. There are right seventh and eighth rib fractures. No pneumothorax or other acute abnormalities. 2. Stable pulmonary nodules as above. 3. Fluid-filled esophagus is noted, nonspecific. ACT 112: Negative or not required by law. Electronically signed by: Mahamed Gunter M.D. 08/03/2023 12:[address] 08/03/23 11:46 CT head/brain wo con CLINICAL HISTORY: Trauma Technique: Contiguous axial CT images of the head were acquired from the base of the skull to the vertex without intravenous contrast administration. Images were viewed in brain, subdural and bone windows. Automated dose lowering techniques and/or adjustment according to patient size were utilized for this exam. Comparison: Comparison is made to CT head 02/22/2020 Findings: Areas of decreased attenuation are present in the periventricular and subcortical white matter bilaterally consistent with small vessel ischemic disease. Generalized cerebral atrophy with commensurate enlargement of the ventricles, sulci, and cisterns is also present. There is no acute intracranial hemorrhage or evidence of acute territorial infarction. No shift of the midline structures, mass effect, or extra-axial abnormalities are shown. Atherosclerotic calcifications are present in the intracranial segments of the internal carotid arteries. 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 Imaged portions of the paranasal sinuses and mastoid air cells are clear. The orbits appear normal. There are no acute fractures of the calvaria or scalp swelling. Impression: No acute intracranial hemorrhage, no evidence of acute territorial infarction or other acute intracranial disease process. ACT 112: Negative or not required by law. Electronically signed by: Mahamed Gunter M.D. 08/03/2023 12:13 PM Medications Administered Insulin Human Regular 250 (units/ Sodium Chloride) 250 mls @ 10 mls/hr IV .Q24H ON LICENSE OF [facility]; Protocol Stop: 09/02/23 11:44 Last Titration: 08/03/23 13:39 Dose: 12 units/hr, 12 mls/hr Documented By: DIVINA Co-signed By: VIVIAN Admin: 08/03/23 12:20 Dose: 10 units/hr, 10 mls/hr Documented By: DIVINA Co-signed By: VIVIAN Lactated Ringer's (Lr) 1,000 mls @ 999 mls/hr IV .Q1H1M ONE Stop: 08/03/23 14:09 Last Admin: 08/03/23 13:35 Dose: 999 mls/hr Documented By: DIVINA Discontinued Medications Fentanyl Citrate (Fentanyl Citrate Pf 100 Mcg/2 Ml Vial) 50 mcg IV NOW STA Stop: 08/03/23 10:55 Last Admin: 08/03/23 11:12 Dose: 50 mcg Documented By: VIVIAN Hydromorphone HCl (Hydromorphone Inj 0.5 Mg/0.5 Ml Syr) 0.5 mg IV NOW STA Stop: 08/03/23 12:27 Last Admin: 08/03/23 12:37 Dose: 0.5 mg Documented By: DIVINA Sodium Chloride (Nss) 500 mls @ 999 mls/hr IV .Q31M ONE Stop: 08/03/23 11:24 Last Infusion: 08/03/23 11:39 Dose: Infused Documented By: Admin: 08/03/23 11:07 Dose: 999 mls/hr Documented By: DIVINA Sodium Chloride (Nss) 500 mls @ 999 mls/hr IV .Q31M ONE Stop: 08/03/23 12:56 Last Admin: 08/03/23 12:39 Dose: 999 mls/hr Documented By: DIVINA Potassium Chloride (Potassium Chloride Crtab 20 Meq Tabcr) 20 meq PO NOW STA Stop: 08/03/23 13:20 Last Admin: 08/03/23 13:36 Dose: 20 meq Documented By: DIVINA ECG Additional Comments: Normal sinus rhythm Prolonged QT Abnormal ECG When compared with ECG of 06-JUN-2021 19:52, No significant change was found Confirmed by Keshav Carballo ([id number]) on 07/15/2023 10:50:53 AM Code Status & VTE Plan VTE Prophylaxis Plan VTE Prophylaxis will be ordered: Yes Critical Care Time Critical Care Time: Yes Total Critical Care Time: 35 Supervising Physician Co-Signing Physician Notes During face to face encounter, I obtained a history or present illness and a physical examination, discussed plan of care with patient as well as Vale ESPOSITO I reviewed above note and agree with it except for the following: Likely the fall was a product of the patient's DKA. DKA has a high mortality if not treated, and patient's blood work is showing significant metabolic acidosis with anion gap. Insulin dripped ordered with IVF, will monitor BMP and VBG closely. Plan is as discussed above. Please refer to orders for further planning. 35 minutes of critical care time spent in the management clinical coronation care of this patient today this critical care time spent independent of and in addition to any other time or critical care time any other practitioner today's date. PG Care Time/CCT Total # of Minutes Spent Total Time Spent with Patient: Total time spent is greater than 50% in coordination of care (as documented) at patient's floor/unit and/or counseling patient: Critical Care Time: Yes Total Critical Care Time: 35 Coding Level of Care Code 02024 INT INP/OBS CARE 3/75MIN (25 - SIGNIFICANT, SEPARATELY IDENTIFIABLE ) Diagnoses DKA (diabetic ketoacidosis) E11.10 Fracture, ribs S22.42XA Encounter type: initial encounter Fracture type: closed Laterality: left Rib fracture type: multiple ribs Foot ulceration L97.509 GERD (gastroesophageal reflux disease) K21.9 ROHIT (acute kidney injury) N17.9 Acquired hypothyroidism E03.9 Hypothyroidism type: acquired Essential hypertension I10 Hypertension type: essential hypertension Dyslipidemia E78.5 DVT prophylaxis Z29.9 Heart failure I50.9 Additional Codes Critical Care Time - Critical Care Time: Yes ([id number]) (2) Fracture, ribs Encounter type: initial encounter Fracture type: closed Laterality: left Rib fracture type: multiple ribs Qualified Code(s): S22.42XA - Multiple fractures of ribs, left side, initial encounter for closed fracture (6) Hypothyroidism Hypothyroidism type: acquired Qualified Code(s): E03.9 - Hypothyroidism, unspecified (7) Hypertension Hypertension type: essential hypertension Qualified Code(s): I10 - Essential (primary) hypertension
[2023-08-03] MEDS: LACTATED RINGER'S 1,000 ML IV ONE (13:35)
[2023-08-03] MEDS: POTASSIUM CHLORIDE CRTAB 20 MEQ TABCR PO STA ×2 (13:36→19:44)
[2023-08-03 14:16] LABS: Appearance Urine Clear (Clear); Bilirubin Urine Negative (Negative); Blood Urine Negative (Negative); Color Urine Yellow; Glucose Urine UA 3+ (Negative); Ketones Urine 4+ (Negative); Leukocyte Esterase Urine Negative (Negative); Nitrite Urine Negative (Negative); Protein Urine Negative (Negative); Specific Gravity Urine 1.034 (1.000-1.030); Urobilinogen Urine Negative (Negative)
[2023-08-03] MEDS: STAT IV Infusion **Titration per Protocol STA (15:00)
[2023-08-03] MEDS ORDERED: LACTATED RINGER'S 1,000 ML IV SCH (15:38)
[2023-08-03] MEDS ORDERED: DKA GOAL RANGE 150-250 mg/dl ONE (15:38)
[2023-08-03] MEDS ORDERED: STAT IV Infusion **Titration per Protocol STA (15:38)
[2023-08-03] MEDS ORDERED: NALOXONE HCL 0.4 MG/1 ML VIAL/CARP IV PRN (15:38)
[2023-08-03] MEDS ORDERED: PHARMACY GLYCEMIC MGMT CONSULT PRN (15:38)
[2023-08-03] MEDS ORDERED: INSULIN REGULAR 250 UNITS in SODIUM CHLORIDE 0.9% 247.5 ML IV SCH (15:38)
[2023-08-03] MEDS ORDERED: ACETAMINOPHEN 325 MG TAB PO PRN (15:38)
[2023-08-03] MEDS: MoRPHine SULFATE 4 MG/ML 1 ML CARP\\VIAL IV PRN (15:54)
[2023-08-03] MEDS ORDERED: PENDING D5 1/2NS+40mEq KCL IVF SCH (16:00)
[2023-08-03] MEDS: LACTATED RINGER'S 1,000 ML IV SCH (16:33)
[2023-08-03 17:02] LABS: BUN Creatinine Ratio 18.3 (10-20); Calcium 8.3 mg/dl (8.6-10.3); Creatinine Clr Calc Pharmacy 67.7 ml/min; Est GFR (African American) 76.5 ml/min; Magnesium 1.8 mg/dl (1.7-2.4); Phosphorus 2.2 mg/dl (2.5-4.9); Potassium 4.1 mmol/L (3.5-5.1)
[2023-08-03] MEDS: INSULIN ASPART PER UNIT CHARGE SC SCH (17:21)
[2023-08-03] MEDS ORDERED: POTASSIUM CHLORIDE 40 MEQ in D5W AND 1/2NSS 1,000 ML IV SCH (17:30)
[2023-08-03] MEDS ORDERED: PENDING D5 1/2NS+20mEq KCL IVF SCH (17:30)
[2023-08-03] MEDS: LIDOCAINE 5% 1 PATCH TD STA (17:58)
[2023-08-03] MEDS: ACETAMINOPHEN 325 MG TAB PO SCH (17:58)
[2023-08-03] MEDS: PIPERACILLIN/TAZOBACTAM 4.5 GM in DEXTROSE 5% MINI-B 100 ML IV ONE (17:58)
[2023-08-03] MEDS: MAGNESIUM SULFATE / D5W 1 GM/100 ML BAG IV SCH (17:59)
[2023-08-03] MEDS: SODIUM CHLOR 0.45% + 20MEQ KCL 20 MEQ/1,000 ML BAG IV SCH (18:00)
[2023-08-03] MEDS: D5W AND 1/2NSS + 20MEQ KCL 20 MEQ/1,000 ML BAG IV SCH (19:17)
[2023-08-03] MEDS: PENDING 1/2NSS+20mEq KCL IVF SCH (19:45)
[2023-08-03 20:08] LABS: BUN Creatinine Ratio 17.3 (10-20); Calcium 8.1 mg/dl (8.6-10.3); Est GFR (Non-African American) 69.9 ml/min; Potassium 3.9 mmol/L (3.5-5.1)
[2023-08-03 20:10] LABS: Magnesium 1.9 mg/dl (1.7-2.4); Phosphorus 1.4 mg/dl (2.5-4.9)
[2023-08-03] MEDS ORDERED: POTASSIUM PHOS 3 MMOL/1 ML INFUSION IV STA (20:43)
[2023-08-03] MEDS: LANTUS PER UNIT CHARGE SQ ONE (21:21)
[2023-08-03] MEDS: PIPERACILLIN/TAZOBACTAM 4.5 GM in DEXTROSE 5% MINI-B 100 ML IV SCH (21:23)
[2023-08-03] MEDS: ATORVASTATIN 40 MG TAB PO SCH (21:23)
[2023-08-03] MEDS: oxyCODONE HCL IR 5 MG TAB (IMMEDIATE RELEASE) PO PRN (21:32)
--- NOTE | 2023-08-03 21:46 | Pharmacy Report ---
Pharmacy Glycemic Short Note 2 - Date of Service August 03, 2023 - Glycemic Short BSG Results (Last 24 hours): 08/03/23 08/03/23 08/03/23 11:00 11:12 13:25 Glucose 628 H* POC Glucose 503 H* POC Glucose (other) 640 H* 08/03/23 08/03/23 08/03/23 14:35 15:15 15:49 Glucose 332 H* POC Glucose 385 H* 365 H* POC Glucose (other) 08/03/23 08/03/23 08/03/23 16:02 17:05 18:01 Glucose POC Glucose 326 H* 228 H 201 H POC Glucose (other) 08/03/23 08/03/23 08/03/23 19:03 19:37 20:35 Glucose 222 H POC Glucose 197 H 204 H POC Glucose (other) OUTPATIENT ANTIDIABETIC REGIMEN: * Lantus 25 units daily, lispro SSI, metformin ASSESSMENT: * 73 year old admitted with DKA - started on insulin infusion per DKA protocol. Gap closing this evening and labs improving - Provider reaching out to pharmacy to help with drip transition - reasonable to start SQ basal insulin to help with drip transition. Insulin drip rate still running at high rate ~8 units/hr this evening, anticipate rate to decrease over next few hours. Will give full weight based stress of 2 dosing for Lantus. Plan to overlap with insulin drip until BSG < 150 or 6 hours whichever is first. PLAN FOR INPATIENT GLYCEMIC CONTROL: * Hold outpatient oral diabetes medications * Basal insulin * Lantus 35 units x 1 - to overlap with drip * Bolus insulin - plan to start after insulin infusion d/c * NovoLog per scale ACHS or Q6hrs while NPO * Goal Range: Low 110 mg/dL - High 140 mg/dL * Correction Factor: 15 mg/dL/unit * Nutritional / Prandial insulin per carb ratio of 1 unit per 5 grams CHO consumed
[2023-08-03] MEDS: POTASSIUM PHOSPHATE 30 MMOL in SODIUM CHLORIDE 0.9% 500 ML IV ONE (22:40)
[2023-08-03 23:16] LABS: Calcium 8.3 mg/dl (8.6-10.3); Magnesium 2.1 mg/dl (1.7-2.4)
[2023-08-03 23:22] LABS: BUN Creatinine Ratio 17.9 (10-20); Creatinine Clr Calc Pharmacy 77.7 ml/min; Est GFR (African American) 90.4 ml/min
[2023-08-03 23:26] LABS: Phosphorus 1.4 mg/dl (2.5-4.9)
[2023-08-04] MEDS ORDERED: INSULIN ASPART PER UNIT CHARGE SC SCH
[2023-08-04] MEDS ORDERED: DC IV INSULIN INFUSION 1 EA DEVI ONE (02:00)
[2023-08-04] MEDS: INSULIN ASPART PER UNIT CHARGE SC SCH (03:04)
[2023-08-04] MEDS: SODIUM CHLOR 0.45% + 20MEQ KCL 20 MEQ/1,000 ML BAG IV SCH (04:04)
[2023-08-04 05:16] LABS: Basophils # (auto) 0.02 K/uL (0.00-0.20); Basophils % (auto) 0.2 %; Eosinophils # (auto) 0.18 K/uL (0.00-0.50); Eosinophils % (auto) 1.9 %; Hematocrit (blood only) 32.1 % (42.0-52.0); Hemoglobin 10.4 g/dl (14.0-18.0); Immature Granulocytes # (auto) 0.04 K/uL (0.01-0.20); Immature Granulocytes % (auto) 0.4 %; Lymphocytes % (auto) 17.7 %; Mean Corpuscular Hemoglobin 29.4 pg (25.0-34.0); Mean Corpuscular Hgb Conc 32.4 g/dL (32.0-36.0); Mean Corpuscular Volume 90.7 fL (80.0-100.0); Mean Platelet Volume 9.8 fL (9.4-12.4); Monocytes # (auto) 0.69 K/uL (0.11-0.59); Monocytes % (auto) 7.2 %; Neutrophils # (auto) 6.98 K/uL (1.40-6.50); Neutrophils % (auto) 72.6 %; Platelet Count 232 K/uL (130-400); RDW Coefficient of Variation 14.5 % (11.5-14.5); RDW Standard Deviation 47.7 fL (36.4-46.3); Red Blood Count 3.54 M/uL (4.70-6.10); White Blood Count 9.61 K/ul (4.8-10.8)
[2023-08-04 05:23] LABS: Calcium 7.6 mg/dl (8.6-10.3); Creatinine Clr Calc Pharmacy 78.5 ml/min; Est GFR (African American) 91.6 ml/min; Magnesium 2.1 mg/dl (1.7-2.4); Phosphorus 4.4 mg/dl (2.5-4.9); Potassium 4.7 mmol/L (3.5-5.1)
[2023-08-04] MEDS: LEVOTHYROXINE SODIUM 200 MCG TABLET PO SCH (06:17)
[2023-08-04] MEDS: LEVOTHYROXINE SODIUM 50 MCG TABLET PO SCH (06:17)
[2023-08-04] MEDS: CYANOCOBALAMIN (B-12) 2,500 MCG TABLET PO SCH (08:42)
[2023-08-04] MEDS: ESCITALOPRAM OXALATE 20 MG TAB PO SCH (08:42)
[2023-08-04] MEDS: PANTOprazole 40 MG TAB PO SCH (08:42)
[2023-08-04] MEDS: CALCITRIOL 0.25 MCG CAPSULE PO SCH (08:43)
[2023-08-04] MEDS: HEPARIN SOD 5,000 UNIT/0.5 ML VIAL SQ SCH (08:43)
[2023-08-04 08:55] LABS: Calcium 7.6 mg/dl (8.6-10.3); Magnesium 2.1 mg/dl (1.7-2.4); Potassium 4.8 mmol/L (3.5-5.1)
[2023-08-04 09:04] LABS: BUN Creatinine Ratio 16.7 (10-20); Creatinine Clr Calc Pharmacy 81.4 ml/min; Est GFR (African American) 96.5 ml/min; Est GFR (Non-African American) 83.3 ml/min; Phosphorus 3.3 mg/dl (2.5-4.9)
[2023-08-04 12:59] LABS: BUN Creatinine Ratio 16.7 (10-20); Calcium 7.6 mg/dl (8.6-10.3); Creatinine Clr Calc Pharmacy 76.3 ml/min; Est GFR (African American) 89.3 ml/min; Potassium 4.6 mmol/L (3.5-5.1)
[2023-08-04 13:00] LABS: Phosphorus 2.6 mg/dl (2.5-4.9)
--- NOTE | 2023-08-04 13:38 | Pharmacy Report ---
Pharmacy Glycemic Short Note 2 - Date of Service August 04, 2023 - Glycemic Short BSG Results (Last 24 hours): 08/03/23 08/03/23 08/03/23 13:25 14:35 15:15 Glucose POC Glucose 503 H* 385 H* 365 H* 08/03/23 08/03/23 08/03/23 15:49 16:02 17:05 Glucose 332 H* POC Glucose 326 H* 228 H 08/03/23 08/03/23 08/03/23 18:01 19:03 19:37 Glucose 222 H POC Glucose 201 H 197 H 08/03/23 08/03/23 08/03/23 20:35 22:42 22:47 Glucose 122 H POC Glucose 204 H 103 H 08/03/23 08/04/23 08/04/23 23:33 00:38 01:57 Glucose POC Glucose 101 H 146 H 159 H 08/04/23 08/04/23 08/04/23 04:41 07:45 08:14 Glucose 131 H 173 H POC Glucose 146 H 08/04/23 08/04/23 11:58 12:30 Glucose 262 H POC Glucose 214 H OUTPATIENT ANTIDIABETIC REGIMEN: * Lantus 25 units daily, lispro SSI, metformin ASSESSMENT: 08/03: * Patient transitioned from insulin infusion last PM, fasting 146 mg/dL this morning. Will continue with same lantus for now. * Reviewed diabetes visit from 07/29- patient is a type 1 diabetic, typically takes 24 units of rapid acting insulin when BSGs are >300 * Has history of hypoglycemia unawareness. * Continue with same novolog parameters today, consider tightening if BSGs trend upward again 08/02 * 73 year old admitted with DKA - started on insulin infusion per DKA protocol. Gap closing this evening and labs improving - Provider reaching out to pharmacy to help with drip transition - reasonable to start SQ basal insulin to help with drip transition. Insulin drip rate still running at high rate ~8 units/hr this evening, anticipate rate to decrease over next few hours. Will give full weight based stress of 2 dosing for Lantus. Plan to overlap with insulin drip until BSG < 150 or 6 hours whichever is first. PLAN FOR INPATIENT GLYCEMIC CONTROL: * Hold outpatient oral diabetes medications * Basal insulin * Lantus 35 units HS * Bolus insulin - * NovoLog per scale ACHS or Q6hrs while NPO * Goal Range: Low 110 mg/dL - High 140 mg/dL * Correction Factor: 15 mg/dL/unit * Nutritional / Prandial insulin per carb ratio of 1 unit per 5 grams CHO consumed
[2023-08-04 17:46] LABS: A calco-baum cmplx NotReported Not Detected (NotDetected); Bact fragilis Not Reported Not Detected (NotDetected); Blood Culture Id Panel PCR Panel Negative (NotDetected); C auris Not Reported Not Detected (NotDetected); Calbicans Not Reported Not Detected (NotDetected); Candida glabrata Not Reported Not Detected (NotDetected); Candida krusei Not Reported Not Detected (NotDetected); Cneoformans/gatti Not Reported Not Detected (NotDetected); Cparapsilosis Not Reported Not Detected (NotDetected); E cloacae compx Not Reported Not Detected (NotDetected); Efaecalis Not Reported Not Detected (NotDetected); Efaecium Not Reported Not Detected (NotDetected); Enterobacterales Not Reported Not Detected (NotDetected); Escherichia coli Not Reported Not Detected (NotDetected); H influenzae Not Reported Not Detected (NotDetected); K aerogenes Not Reported Not Detected (NotDetected); Koxytoca Not Reported Not Detected (NotDetected); Kpneumoniae grp Not Reported Not Detected (NotDetected); Lmonocyt Not Reported Not Detected (NotDetected); N meningitidis Not Reported Not Detected (NotDetected); P aeruginosa Not Reported Not Detected (NotDetected); Proteus spp Not Reported Not Detected (NotDetected); Salmonella spp Not Reported Not Detected (NotDetected); Smarcescens Not Reported Not Detected (NotDetected); Staph lugdunensis Not Reported Not Detected (NotDetected); Staph spp. Not Reported Not Detected (NotDetected); Staphaureus Not Reported Not Detected (NotDetected); Staphepi Not Reported Not Detected (NotDetected); Stenmaltophilia Not Reported Not Detected (NotDetected); Strep agal(GrpB) Not Reported Not Detected (NotDetected); Strep pneum Not Reported Not Detected (NotDetected); Strep pyog (GrpA) Not Reported Not Detected (NotDetected); Strep spp Not Reported Not Detected (NotDetected)
--- NOTE | 2023-08-04 18:43 | Hospitalist Progress Note ---
Date of Service August 04, 2023 Assessment & Plan (1) DKA (diabetic ketoacidosis): Plan: DKA with Glucose > 600PH <7.2, AGAP 20, HCO3 14 treated with Insulin drip frequent blood draws IVF anion gap now closed. tolerating diet. - Possibly infective related secondary to left heel wound- see below (2) Fracture, ribs: Plan: S/P Fall at home- 7th and 8th posterior without pneumothorax or hemothorax noted - multifaceted pain control- tyelnol, lidocaine patch, oxy 5mg q6 prn, morphine q3 for severe pain- rescue narcan available of needed - splinting of of righ side with ICS, CDB - ICS q 1 hour - OOB to chair with assistance TID (3) Foot ulceration: Plan: Left heel ulceration with open skin, errythema and serous drainage - scab on left top of foot- healing - blood cultures x2 and PCT ordered - Will cover with Zosyn at this time for diabetic foot ulcer will consult wound care. (4) GERD (gastroesophageal reflux disease): Plan: Continue with PPI - consider Reglan if needed in regards to likely diabetic gastroparesis with vomiting - noted CT imaging with particles in esophagus (5) ROHIT (acute kidney injury): Plan: TAJ II with BUTTON CUTTER 1.12 baseline .09 - Likely related to volume status with DKA - replete intravascular volume- hold KYLE/ARB and diuretics for 24 hours - follow renal indices in morning (6) Hypothyroidism: Plan: Continue Synthroid- chronic stable (7) Hypertension: Plan: Chronic stable - Will hold KYLE/ARB currently with ROHIT - Hold Diuretic Therapy at this time with ROHIT and hypovolemic picture on assessment - replete intravascular volume- likely able to restart in 24 hours - BP likely to be elevated secondary to pain from rib fractures as above- tiered pain control and follow (8) Dyslipidemia: Plan: Continue high intensity statin - atorvastatin 80mg nightly (9) DVT prophylaxis: Plan: SCDS - chemoprophylaxis with Heparin 5000 units sub q q12 hours to start on 08/04/23 at 0900- follow for any bleeding post fall (10) Heart failure: Plan: HFpEF with elevated RVSP - chronic problem not an acute exacerbation at this time - Follow fluid volume status- currently appears hypovolemic with dry mucous membranes, thirst, poor skin turgor - allow to drink to thirst Admission and Anticipated Discharge Date Admission Date: August 03, 2023 Subjective Patient reports feeling much better. His pain appears to be controlled. Review of Systems Review of Systems: All systems reviewed & are unremarkable except as noted in HPI & below Physical Exam Physical Exam: General: awake, alert, no apparent distress Head: Normocephalic, atraumatic ENT: PERRLA, EOMI Neuro: AAO x 3 Chest: Clear to auscultation, on room air, Cardiac: Regular rate and rhythm, \ GI: NABS x 4 quadrants, soft, nontender to palpation, no rebound, guarding or tenderness Results & Data Results & Data Vital Signs (Past 12 Hours) Vital Signs Temp Pulse Resp BP Pulse Ox O2 Del Method 08/04/23 15:06 36.4 C L 75 16 125/66 98 Room Air 08/04/23 11:33 36.7 C 83 18 135/77 99 Room Air 08/04/23 07:10 36.7 C 86 18 146/73 H 98 Room Air PG Care Time/CCT Total # of Minutes Spent Total Time Spent with Patient: Total time spent is greater than 50% in coordination of care (as documented) at patient's floor/unit and/or counseling patient: Coding Level of Care Code 74036 SUB INP/OBS CARE 2/35MIN Diagnoses DKA (diabetic ketoacidosis) E10.10 Diabetes mellitus complication detail: without coma Diabetes mellitus type: type 1 Fracture, ribs S22.42XA Encounter type: initial encounter Fracture type: closed Laterality: left Rib fracture type: multiple ribs Foot ulceration L97.509 GERD (gastroesophageal reflux disease) K21.9 ROHIT (acute kidney injury) N17.9 Acquired hypothyroidism E03.9 Hypothyroidism type: acquired Essential hypertension I10 Hypertension type: essential hypertension Dyslipidemia E78.5 DVT prophylaxis Z29.9 Heart failure I50.9 (1) DKA (diabetic ketoacidosis) Diabetes mellitus complication detail: without coma Diabetes mellitus type: type 1 Qualified Code(s): E10.10 - Type 1 diabetes mellitus with ketoacidosis without coma (2) Fracture, ribs Encounter type: initial encounter Fracture type: closed Laterality: left Rib fracture type: multiple ribs Qualified Code(s): S22.42XA - Multiple fractures of ribs, left side, initial encounter for closed fracture (6) Hypothyroidism Hypothyroidism type: acquired Qualified Code(s): E03.9 - Hypothyroidism, unspecified (7) Hypertension Hypertension type: essential hypertension Qualified Code(s): I10 - Essential (primary) hypertension
[2023-08-04] MEDS: LANTUS PER UNIT CHARGE SQ SCH ×2 (21:41→22:16)
[2023-08-05] MEDS ORDERED: VANCOMYCIN CONSULT ACTIVE PRN (01:08)
[2023-08-05] MEDS: VANCOMYCIN HCL 2,250 MG in SODIUM CHLORIDE 0.9% 500 ML IV ONE (01:27)
[2023-08-05] MEDS: INSULIN ASPART PER UNIT CHARGE SC ONE (02:03)
[2023-08-05 06:30] LABS: Basophils # (auto) 0.03 K/uL (0.00-0.20); Basophils % (auto) 0.5 %; Eosinophils # (auto) 0.22 K/uL (0.00-0.50); Eosinophils % (auto) 3.6 %; Hematocrit (blood only) 33.2 % (42.0-52.0); Hemoglobin 10.8 g/dl (14.0-18.0); Immature Granulocytes # (auto) 0.02 K/uL (0.01-0.20); Immature Granulocytes % (auto) 0.3 %; Lymphocytes # (auto) 1.37 K/uL (1.20-3.40); Lymphocytes % (auto) 22.4 %; Mean Corpuscular Hemoglobin 29.4 pg (25.0-34.0); Mean Corpuscular Hgb Conc 32.5 g/dL (32.0-36.0); Mean Corpuscular Volume 90.5 fL (80.0-100.0); Mean Platelet Volume 9.8 fL (9.4-12.4); Monocytes # (auto) 0.42 K/uL (0.11-0.59); Monocytes % (auto) 6.9 %; Neutrophils # (auto) 4.05 K/uL (1.40-6.50); Neutrophils % (auto) 66.3 %; Platelet Count 218 K/uL (130-400); RDW Coefficient of Variation 14.6 % (11.5-14.5); RDW Standard Deviation 48.7 fL (36.4-46.3); Red Blood Count 3.67 M/uL (4.70-6.10); White Blood Count 6.11 K/ul (4.8-10.8)
[2023-08-05 06:40] LABS: BUN Creatinine Ratio 13.3 (10-20); Calcium 7.8 mg/dl (8.6-10.3); Creatinine Clr Calc Pharmacy 81.3 ml/min; Est GFR (African American) 96.5 ml/min; Est GFR (Non-African American) 83.3 ml/min; Magnesium 2.1 mg/dl (1.7-2.4); Potassium 4.6 mmol/L (3.5-5.1)
--- NOTE | 2023-08-05 09:07 | Pharmacy Report ---
Pharmacy PK ABX Note - Date of Service August 05, 2023 - Assessment and Plan Assessment 73 year old M receiving vancomycin/Zosyn for treatment of bacteremia. Pertinent microbiologic data includes: blood culture growing GPCs in both aerobic bottles. Day # 1 of vancomycin therapy. Plan Vancomycin * Loading dose: 2250 mg IV x 1 * Maintenance dose: 1000 mg IV every 12 hours * Regimen is predicted to achieve target AUC/YAMILE of 400-600 mg/L.hr * Random level ordered for: 08/07/23 with AM labs Pharmacy will continue to follow and will adjust dose/frequency as necessary. Thank you. Pharmacy has transitioned to AUC monitoring for vancomycin. AUC/YAMILE is the preferred PK/PD target and is associated with decreased risk of nephrotoxicity compared to traditional trough targets.
[2023-08-05] MEDS: VANCOMYCIN HCL 1,000 MG in SODIUM CHLORIDE 0.9% 250 ML IV SCH (10:46)
--- NOTE | 2023-08-05 12:28 | Pharmacy Report ---
Pharmacy Glycemic Short Note 2 - Date of Service August 05, 2023 - Glycemic Short BSG Results (Last 24 hours): 08/04/23 08/04/23 08/04/23 12:30 16:15 20:44 Glucose 262 H POC Glucose 145 H 122 H 08/05/23 08/05/23 08/05/23 02:01 05:43 07:34 Glucose 80 POC Glucose 87 90 08/05/23 11:36 Glucose POC Glucose 138 H OUTPATIENT ANTIDIABETIC REGIMEN: * Lantus 25 units daily, lispro SSI, metformin ASSESSMENT: 08/04: * Kvng received 47 units of insulin yesterday (30 were basal) * Fasting BSG this AM below goal range, decrease basal insulin back to home dosage * He is receiving Zosyn and vancomycin currently as well as 1/2NS with 20mEq KCl @ 110mLs/hr * Novolog appears to be adequately addressing needs at this time, continue. 08/03: * Patient transitioned from insulin infusion last PM, fasting 146 mg/dL this morning. Will continue with same lantus for now. * Reviewed diabetes visit from 07/29- patient is a type 1 diabetic, typically takes 24 units of rapid acting insulin when BSGs are >300 * Has history of hypoglycemia unawareness. * Continue with same novolog parameters today, consider tightening if BSGs trend upward again 08/02 * 73 year old admitted with DKA - started on insulin infusion per DKA protocol. Gap closing this evening and labs improving - Provider reaching out to pharmacy to help with drip transition - reasonable to start SQ basal insulin to help with drip transition. Insulin drip rate still running at high rate ~8 units/hr this evening, anticipate rate to decrease over next few hours. Will give full weight based stress of 2 dosing for Lantus. Plan to overlap with insulin drip until BSG < 150 or 6 hours whichever is first. PLAN FOR INPATIENT GLYCEMIC CONTROL: * Hold outpatient oral diabetes medications * Basal insulin * Lantus 26 units HS * Bolus insulin - * NovoLog per scale ACHS or Q6hrs while NPO * Goal Range: Low 110 mg/dL - High 140 mg/dL * Correction Factor: 15 mg/dL/unit * Nutritional / Prandial insulin per carb ratio of 1 unit per 5 grams CHO consumed
[2023-08-05] MEDS ORDERED: LANTUS PER UNIT CHARGE SQ SCH (16:30)
--- NOTE | 2023-08-05 17:25 | XCELERA ---
[id number]
[2023-08-05] MEDS: LANTUS PER UNIT CHARGE SQ SCH (17:49)
--- NOTE | 2023-08-05 21:40 | Hospitalist Progress Note ---
Date of Service August 05, 2023 Assessment & Plan (1) DKA (diabetic ketoacidosis): Plan: DKA with Glucose > 600PH <7.2, AGAP 20, HCO3 14 treated with Insulin drip frequent blood draws IVF anion gap now closed. tolerating diet. - Possibly infective related secondary to left heel wound- see below awaiting blood culture results (2) Fracture, ribs: Plan: S/P Fall at home- 7th and 8th posterior without pneumothorax or hemothorax noted - multifaceted pain control- tyelnol, lidocaine patch, oxy 5mg q6 prn, morphine q3 for severe pain- rescue narcan available of needed - splinting of of righ side with ICS, CDB - ICS q 1 hour - OOB to chair with assistance TID (3) Foot ulceration: Plan: Left heel ulceration with open skin, errythema and serous drainage - scab on left top of foot- healing - blood cultures x2 and PCT ordered - Will cover with Zosyn at this time for diabetic foot ulcer will consult wound care. awaiting input. 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 1.12 baseline .09 - Likely related to volume status with DKA - replete intravascular volume- hold KYLE/ARB and diuretics for 24 hours - follow renal indices in morning (6) Hypothyroidism: Plan: Continue Synthroid- chronic stable (7) Hypertension: Plan: Chronic stable - Will hold KYLE/ARB currently with ROHIT - Hold Diuretic Therapy at this time with ROHIT and hypovolemic picture on assessment - replete intravascular volume- likely able to restart in 24 hours - BP likely to be elevated secondary to pain from rib fractures as above- tiered pain control and follow (8) Dyslipidemia: Plan: Continue high intensity statin - atorvastatin 80mg nightly (9) DVT prophylaxis: Plan: SCDS - chemoprophylaxis with Heparin 5000 units sub q q12 hours to start on 08/04/23 at 0900- follow for any bleeding post fall (10) Heart failure: Plan: HFpEF with elevated RVSP - chronic problem not an acute exacerbation at this time - Follow fluid volume status- currently appears hypovolemic with dry mucous membranes, thirst, poor skin turgor - allow to drink to thirst Admission and Anticipated Discharge Date Admission Date: August 03, 2023 Subjective Patient reports no new symptoms. Review of Systems Review of Systems: All systems reviewed & are unremarkable except as noted in HPI & below Physical Exam Physical Exam: General: awake, alert, no apparent distress Head: Normocephalic, atraumatic ENT: PERRLA, EOMI Neuro: AAO x 3 Chest: Clear to auscultation, on room air, Cardiac: Regular rate and rhythm, \ GI: NABS x 4 quadrants, soft, nontender to palpation, no rebound, guarding or tenderness Results & Data Results & Data Vital Signs (Past 12 Hours) Vital Signs Temp Pulse Resp BP Pulse Ox O2 Del Method 08/05/23 19:57 36.7 C 89 18 155/82 H 98 Room Air 08/05/23 15:30 36.7 C 60 19 147/77 H 96 Room Air 08/05/23 11:00 36.6 C 74 20 158/81 H 94 Room Air PG Care Time/CCT Total # of Minutes Spent Total Time Spent with Patient: Total time spent is greater than 50% in coordination of care (as documented) at patient's floor/unit and/or counseling patient: Coding Level of Care Code 64025 SUB INP/OBS CARE 2/35MIN Diagnoses DKA (diabetic ketoacidosis) E10.10 Diabetes mellitus complication detail: without coma Diabetes mellitus type: type 1 Fracture, ribs S22.42XA Encounter type: initial encounter Fracture type: closed Laterality: left Rib fracture type: multiple ribs Foot ulceration L97.509 GERD (gastroesophageal reflux disease) K21.9 ROHIT (acute kidney injury) N17.9 Acquired hypothyroidism E03.9 Hypothyroidism type: acquired Essential hypertension I10 Hypertension type: essential hypertension Dyslipidemia E78.5 DVT prophylaxis Z29.9 Heart failure I50.9 (1) DKA (diabetic ketoacidosis) Diabetes mellitus complication detail: without coma Diabetes mellitus type: type 1 Qualified Code(s): E10.10 - Type 1 diabetes mellitus with ketoacidosis without coma (2) Fracture, ribs Encounter type: initial encounter Fracture type: closed Laterality: left Rib fracture type: multiple ribs Qualified Code(s): S22.42XA - Multiple fractures of ribs, left side, initial encounter for closed fracture (6) Hypothyroidism Hypothyroidism type: acquired Qualified Code(s): E03.9 - Hypothyroidism, unspecified (7) Hypertension Hypertension type: essential hypertension Qualified Code(s): I10 - Essential (primary) hypertension
[2023-08-06 06:24] LABS: Basophils # (auto) 0.02 K/uL (0.00-0.20); Basophils % (auto) 0.4 %; Eosinophils % (auto) 1.9 %; Hematocrit (blood only) 35.1 % (42.0-52.0); Hemoglobin 11.3 g/dl (14.0-18.0); Immature Granulocytes # (auto) 0.02 K/uL (0.01-0.20); Immature Granulocytes % (auto) 0.4 %; Lymphocytes # (auto) 0.81 K/uL (1.20-3.40); Lymphocytes % (auto) 15.1 %; Mean Corpuscular Hemoglobin 29.3 pg (25.0-34.0); Mean Corpuscular Hgb Conc 32.2 g/dL (32.0-36.0); Mean Corpuscular Volume 90.9 fL (80.0-100.0); Mean Platelet Volume 9.7 fL (9.4-12.4); Monocytes # (auto) 0.45 K/uL (0.11-0.59); Monocytes % (auto) 8.4 %; Neutrophils # (auto) 3.95 K/uL (1.40-6.50); Neutrophils % (auto) 73.8 %; Platelet Count 220 K/uL (130-400); RDW Coefficient of Variation 14.5 % (11.5-14.5); RDW Standard Deviation 48.4 fL (36.4-46.3); Red Blood Count 3.86 M/uL (4.70-6.10); White Blood Count 5.35 K/ul (4.8-10.8)
[2023-08-06 06:36] LABS: BUN Creatinine Ratio 11.3 (10-20); Calcium 8.1 mg/dl (8.6-10.3); Creatinine Clr Calc Pharmacy 91.7 ml/min; Est GFR (African American) 101.3 ml/min; Est GFR (Non-African American) 87.4 ml/min; Phosphorus 3.6 mg/dl (2.5-4.9)
[2023-08-06] MEDS: CARBOHYDRATES FOR HYPOGLYCEMIA PO PRN (06:40)
[2023-08-06] MEDS: DEXTROSE 50% 50 ML SYRINGE IV PRN (07:02)
[2023-08-06] MEDS ORDERED: LANTUS PER UNIT CHARGE SQ SCH ×2 (12:00→15:00)
--- NOTE | 2023-08-06 14:31 | Pharmacy Report ---
Pharmacy Glycemic Short Note 2 - Date of Service August 06, 2023 - Glycemic Short BSG Results (Last 24 hours): 08/05/23 08/05/23 08/06/23 20:20 20:22 06:04 Glucose 47 L* POC Glucose 40 L* 90 08/06/23 08/06/23 08/06/23 06:38 06:57 07:21 Glucose POC Glucose 47 L* 45 L* 175 H 08/06/23 08/06/23 09:07 12:02 Glucose POC Glucose 108 H 93 OUTPATIENT ANTIDIABETIC REGIMEN: * Lantus 25 units daily, lispro SSI, metformin ASSESSMENT: 08/04: * Kvng received 55 units of insulin (26 were basal) * Symptomatic hypoglycemic (shakiness) event this morning, treated with 2 orange juices and 50mL of D5W, BSGs recovered and then back below goal range at lunch, basal insulin deferred back to dinner at least 50% dose reduction, more reduction if BSGs in goal range. Overnight checks added with loose correction factor to supplement if basal dose insufficient. * Cause of hypoglycemia unclear, potentially from stressed basal insulin doses when transitioning from drip or stacking of Novolog from too tight parameters yesterday. Novolog loosened to a weight based stress of 2. BSG goal range increased to also help prevent hypoglycemia. * He continues on Zosyn for his foot ulcer 08/03: * Kvng received 47 units of insulin yesterday (30 were basal) * Fasting BSG this AM below goal range, decrease basal insulin back to home dosage * He is receiving Zosyn and vancomycin currently as well as 1/2NS with 20mEq KCl @ 110mLs/hr * Novolog appears to be adequately addressing needs at this time, continue. 08/03: * Patient transitioned from insulin infusion last PM, fasting 146 mg/dL this morning. Will continue with same lantus for now. * Reviewed diabetes visit from 07/29- patient is a type 1 diabetic, typically takes 24 units of rapid acting insulin when BSGs are >300 * Has history of hypoglycemia unawareness. * Continue with same novolog parameters today, consider tightening if BSGs trend upward again 08/02 * 73 year old admitted with DKA - started on insulin infusion per DKA protocol. Gap closing this evening and labs improving - Provider reaching out to pharmacy to help with drip transition - reasonable to start SQ basal insulin to help with drip transition. Insulin drip rate still running at high rate ~8 units/hr this evening, anticipate rate to decrease over next few hours. Will give full weight based stress of 2 dosing for Lantus. Plan to overlap with insulin drip until BSG < 150 or 6 hours whichever is first. PLAN FOR INPATIENT GLYCEMIC CONTROL: * Hold outpatient oral diabetes medications * Basal insulin * Lantus 5-10 units SQ QDD (5 units for BSG 180mg/dL or less, 10 units if BSG is ) * Bolus insulin- * NovoLog per scale ACHS or Q6hrs while NPO * Goal Range: Low 120 mg/dL - High 160 mg/dL * Correction Factor: 20 mg/dL/unit * Nutritional / Prandial insulin per carb ratio of 1 unit per 7 grams CHO consumed * Bolus insulin- overnight checks * NovoLog per scale AC or Q6hrs while NPO * Goal Range: Low 120 mg/dL - High 160 mg/dL * Correction Factor: 50 mg/dL/unit
--- NOTE | 2023-08-06 16:26 | Infectious Disease Consult ---
Date of Consultation August 06, 2023 Assessment & Plan (1) Foot ulceration: (2) Positive blood culture: (3) Right rib fracture: (4) ROHIT (acute kidney injury): (5) DKA (diabetic ketoacidosis): Plan 73yo M with h/o CHF, T1DM uncontrolled, hypothyroidism, LE edema, HTN, HLD, right partial knee replacement, who presented on 08/02 with fall. He tripped and fell against a piano bench on his right lateral chest. Of note, he was noted to have a left heel ulcer and was recently started on doxycycline by his PCP while waiting to see wound care the following week. Here, he has been afebrile, vss. Initial labs with WBC 8.25, Cr 1.12, AST/ALT wnl. PCT 0.62. UA negative. CXR with fractures of the right 7th and 8th ribs, CTAP noted rib fractures. CT C spine without acute findings. CT chest with rib fractures, no PTX, stable pulmonary nodules. CTH without acute findings. TTE technically difficult, no visualized vegetations. He was admitted with DKA as well as concerns for left foot infection. BCx from admission returned positive for Micrococcus and ID was consulted. Micrococcus is a common contaminant, however his BCx have 2 bottles from 2 separate sites that are positive. Unclear if this is a true infection vs contamination. Repeat blood cx are in process. If its a true infection, it could be from his left heel ulcer, though there doesnt appear to be significant cellulitis there. I will narrow abx as Micrococcus is often quite sensitive and follow up on blood cx drawn on 08/04. Will use Unasyn as this will also cover for diabetic ulcer. Will plan for a short duration of abx. I did add sensitivities to micrococcus but this has been sent out and may take time to result. # BCx with Micrococcus - ?true infection vs contaminant # Left heel ulcer # DKA - resolved # Right sided rib fractures # ROHIT improved - Chanell stopped vancomycin and zosyn - Chanell started Unasyn 3g IV q6h - will f/u BCx from 08/04 - if repeat cx are negative, then will plan to complete a short PO regimen ID will continue to follow. If questions or concerns, contact Infectious Disease Call Center . Kayley Moore MD [facility], Division of Infectious Diseases IDConnect: [phone] Consultation Information Consultation was provided via telemedicine using two-way real-time interactive telecommunication between the patient and the telemedicine provider. For the duration of the visit, the provider was performing the assessment from a different facility than the patient. This includesuse of bluetooth stethoscope forauscultationperformed by the telepresenter that the telemedicine provider can hear if described in the physical exam. Chief Embalmer contact information: Please call ID Connect Call Center . (Phone Number For Physician Use Only) After establishing a telemedicine visit, patient was: Patient was verified with two unique identifiers, Patient/authorized rep acknowledged consent and understanding and Gave permission to continue telehealth session Time Spent with Patient: Initial => 75 min History of Present Illness Reason for Consultation: bacteremia, foot ulcer Attending Physician: John Reina History of Present Illness 73yo M with h/o CHF, T1DM uncontrolled, hypothyroidism, LE edema, HTN, HLD, right partial knee replacement, who presented on 08/02 with fall. He tripped and fell against a piano bench on his right lateral chest and developed significant tenderness on the right side. Of note, he was noted to have a left heel ulcer and was recently started on doxycycline by his PCP while waiting to see wound care next week. Here, he has been afebrile, vss. Initial labs with WBC 8.25, Cr 1.12, AST/ALT wnl. PCT 0.62. UA negative. CXR with fractures of the right 7th and 8th ribs, CTAP noted rib fractures. CT C spine without acute findings. CT chest with rib fractures, no PTX, stable pulmonary nodules. CTH without acute findings. TTE technicaly difficult, no visualized vegetations. He was admitted with DKA as well as concerns for left foot infection. BCx from admission returned positive for Micrococcus and ID was consulted. On evaluation, patient reports feeling well. He notes pain in his right side in the ribs and has difficulty moving around because of it. He says he has an ulcer on his left heel that developed about 6 days ago. No other rash. He says he has back pain ever since his fall. No pain in his knee or swelling. No other hardware. Allergies Allergy/AdvReac Type Severity Reaction Status Date / Time Iodinated Contrast Media Allergy Unknown UNKNOWN Verified 08/03/23 12:56 REACTION iodine Allergy Unknown TOPICAL Verified 08/03/23 12:56 REDNESS AND EDEMA Home Medications Medication Instructions Recorded Confirmed Type brinzolamide 1 %-brimonidine 0.2 % 1 drp ophthalmic (eye) BID 07/08/18 08/03/23 History eye drops,suspension (Simbrinza) multivitamin 1 tab PO QAM 07/08/18 08/03/23 History vit C,E,zinc,copper-akjxr4r 250 1 cap PO QAM 07/08/18 08/03/23 History mg-lutein 5 mg-zeaxanthin 1 mg capsule (Ocuvite Adult 50 Plus) cyanocobalamin (vitamin B-12) 2,500 mcg PO DAILY 12/08/18 08/03/23 History 2,500 mcg tablet blood-glucose sensor (Dexcom G6 #3 ea 10/09/21 07/30/23 Rx Sensor device) metformin 500 mg tablet,extended 1,000 mg (2 x 500 mg) PO DAILY 05/31/22 08/03/23 Rx release 24hr (osmotic) #180 tabs calcitriol 0.5 mcg capsule 0.5 mcg PO DAILY #90 caps 07/09/22 08/03/23 Rx escitalopram oxalate 20 mg tablet 20 mg PO DAILY #90 tabs 07/25/22 08/03/23 Rx Humalog KwikPen Insulin 100 See Rx Instructions .Route 10/30/22 08/03/23 Rx unit/mL subcutaneous (insulin .COMPLEX #60 mL lispro) omeprazole 40 mg capsule,delayed 40 mg PO DAILY #30 caps 11/09/22 08/03/23 Rx release atorvastatin 80 mg tablet 80 mg PO QPM #90 tabs 12/27/22 08/03/23 Rx insulin glargine 100 unit/mL (3 25 unit subcut UD 07/14/23 08/03/23 History mL) subcutaneous pen (Lantus Solostar U-100 Insulin) furosemide 40 mg tablet 40 mg PO DAILY 4 days #4 tabs 07/25/23 08/03/23 Rx BD Ultra-Fine Verito Pen Needle 32 #500 ea 07/29/23 07/30/23 Rx gauge x 5/32" (pen needle, diabetic) doxycycline hyclate 100 mg tablet 100 mg PO BID 07/30/23 08/03/23 History glucagon 1 mg/0.2 mL subcutaneous 1 mg (0.2 mL) subcut ONCE PRN 07/30/23 08/03/23 Rx auto-injector (Gvoke HypoPen severe hypoglycemia #0.2 mL 1-Pack) levothyroxine 200 mcg tablet See Rx Instructions .Route .COMPLEX 08/03/23 08/03/23 History levothyroxine 50 mcg tablet See Rx Instructions .Route .COMPLEX 08/03/23 08/03/23 History ramipril 10 mg capsule 10 mg PO HS 08/03/23 08/03/23 History spironolactone 25 mg tablet 25 mg PO QAM 08/03/23 08/03/23 History (Aldactone) Patient History Medical History H/O osteoporotic pathological fracture ribs Osteoporosis Left leg cellulitis Edema, lower extremity Sensorineural hearing loss of both ears Chronic pain of right knee Osteoarthritis Glaucoma Temporomandibular joint disorder NO LOCKING Surgical History H/O cystoscopy History of tonsillectomy H/O colonoscopy Hx of foot surgery DEBRIDEMENT RIGHT FOOT H/O hand surgery RIGHT THUMB History of tooth extraction History of cataract surgery R/L Family History Father , age 84 - pulmonary embolism after hip surgery Pulmonary embolism Unknown Leukemia Diabetes Cancer Hypertension Mother , age 98 - biliary sepsis/cholecystitis? No problems noted. Other No family history of adverse response to anesthesia No family history of bleeding disorder Denies family history of Ovarian cancer Prostate cancer Myocardial infarction Breast cancer Colorectal cancer Stroke Social History Smoking Status: Never smoker Tobacco Type: Cigarettes Age Started Using Tobacco: 16; Age Quit Using Tobacco: 21; packs per day: 1; Second Hand Exposure: No; Do You Dip or Chew Tobacco: No; Tobacco Cessation Education Requested by Patient: No Hx Alcohol Use: No Hx Substance Use: No Preferred Language: Grenadian Communication Ability: Effective Communication Ability Comment: legally blind Visual Impairment: Severely Limited Hearing Ability: Normal Application Security Specialist Required: No Beliefs That Will Affect Care: None marital status: Current Living Situation: Spouse Current Living Situation Comment: lives with in [place] current 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 status: 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 Physical Exam Physical Exam: General: Awake, alert, no acute distress HEENT: NC/AT, EOMI, mmm Neck: supple Lungs: respirations non-labored Heart: nl peripheral perfusion Abdomen: soft, distended, nontender Back: tenderness in thoracic/lumbar area - pt says related to ribs Ext: no LE edema, left heel with open ulcer, very mild pink discoloration, no drainage Skin: as above Neuro: O x 3 Results & Data Vital Signs (Past 12 Hours) Vital Signs Temp Pulse Resp BP Pulse Ox O2 Del Method 08/06/23 15:06 36.7 C 83 16 150/75 H 96 Room Air 08/06/23 12:06 37.0 C 84 18 175/84 H 97 Room Air 08/06/23 08:00 Room Air 08/06/23 07:28 36.7 C 90 16 168/93 H 99 Room Air Laboratory Results labs reviewed Diagnostic Findings imaging reviewed (3) Right rib fracture Encounter type: initial encounter Fracture type: closed Rib fracture type: multiple ribs Qualified Code(s): S22.41XA - Multiple fractures of ribs, right side, initial encounter for closed fracture (5) DKA (diabetic ketoacidosis) Diabetes mellitus complication detail: without coma Diabetes mellitus type: type 1 Qualified Code(s): E10.10 - Type 1 diabetes mellitus with ketoacidosis without coma
[2023-08-06] MEDS: LANTUS PER UNIT CHARGE SC SCH (17:30)
[2023-08-06] MEDS: AMPICILLIN/SULBACTAM SOD 3,000 MG in SODIUM CHLOR 0.9% MINI-B 100 ML IV SCH (20:27)
--- NOTE | 2023-08-06 22:33 | Hospitalist Progress Note ---
Date of Service August 06, 2023 Assessment & Plan (1) DKA (diabetic ketoacidosis): Plan: DKA with Glucose > 600PH <7.2, AGAP 20, HCO3 14 treated with Insulin drip frequent blood draws IVF anion gap now closed. tolerating diet. - Possibly infective related secondary to left heel wound- see below awaiting blood culture results (2) Fracture, ribs: Plan: S/P Fall at home- 7th and 8th posterior without pneumothorax or hemothorax noted - multifaceted pain control- tyelnol, lidocaine patch, oxy 5mg q6 prn, morphine q3 for severe pain- rescue narcan available of needed - splinting of of righ side with ICS, CDB - ICS q 1 hour - OOB to chair with assistance TID (3) Foot ulceration: Plan: Left heel ulceration with open skin, errythema and serous drainage - scab on left top of foot- healing - blood cultures x2 and PCT ordered - Will cover with Zosyn at this time for diabetic foot ulcer will consult wound care: appreciate input patient with bacteremia, awaiting ID input (4) GERD (gastroesophageal reflux disease): Plan: Continue with PPI - consider Reglan if needed in regards to likely diabetic gastroparesis with vomiting - noted CT imaging with particles in esophagus (5) ROHIT (acute kidney injury): Plan: TAJ II with SOFTWARE TESTER 1.12 baseline .09 - Likely related to volume status with DKA - replete intravascular volume- hold KYLE/ARB and diuretics for 24 hours - follow renal indices in morning (6) Hypothyroidism: Plan: Continue Synthroid- chronic stable (7) Hypertension: Plan: Chronic stable - Will hold KYLE/ARB currently with ROHIT - Hold Diuretic Therapy at this time with ROHIT and hypovolemic picture on assessment - replete intravascular volume- likely able to restart in 24 hours - BP likely to be elevated secondary to pain from rib fractures as above- tiered pain control and follow (8) Dyslipidemia: Plan: Continue high intensity statin - atorvastatin 80mg nightly (9) DVT prophylaxis: Plan: SCDS - chemoprophylaxis with Heparin 5000 units sub q q12 hours to start on 08/04/23 at 0900- follow for any bleeding post fall (10) Heart failure: Plan: HFpEF with elevated RVSP - chronic problem not an acute exacerbation at this time - Follow fluid volume status- currently appears hypovolemic with dry mucous membranes, thirst, poor skin turgor - allow to drink to thirst Admission and Anticipated Discharge Date Admission Date: August 03, 2023 Subjective 73 yo male reports no new symptoms Review of Systems Review of Systems: All systems reviewed & are unremarkable except as noted in HPI & below Physical Exam Physical Exam: General: awake, alert, no apparent distress Head: Normocephalic, atraumatic ENT: PERRLA, EOMI Neuro: AAO x 3 Chest: Clear to auscultation, on room air, Cardiac: Regular rate and rhythm, \ GI: NABS x 4 quadrants, soft, nontender to palpation, no rebound, guarding or tenderness Results & Data Results & Data Vital Signs (Past 12 Hours) Vital Signs Temp Pulse Resp BP Pulse Ox O2 Del Method 08/06/23 19:57 Room Air 08/06/23 19:17 37.1 C 78 18 157/76 H 97 Room Air 08/06/23 15:06 36.7 C 83 16 150/75 H 96 Room Air 08/06/23 12:06 37.0 C 84 18 175/84 H 97 Room Air PG Care Time/CCT Total # of Minutes Spent Total Time Spent with Patient: Total time spent is greater than 50% in coordination of care (as documented) at patient's floor/unit and/or counseling patient: Coding Level of Care Code 06535 SUB INP/OBS CARE 2/35MIN Diagnoses DKA (diabetic ketoacidosis) E10.10 Diabetes mellitus complication detail: without coma Diabetes mellitus type: type 1 Fracture, ribs S22.42XA Encounter type: initial encounter Fracture type: closed Laterality: left Rib fracture type: multiple ribs Foot ulceration L97.509 GERD (gastroesophageal reflux disease) K21.9 ROHIT (acute kidney injury) N17.9 Acquired hypothyroidism E03.9 Hypothyroidism type: acquired Essential hypertension I10 Hypertension type: essential hypertension Dyslipidemia E78.5 DVT prophylaxis Z29.9 Heart failure I50.9 (1) DKA (diabetic ketoacidosis) Diabetes mellitus complication detail: without coma Diabetes mellitus type: type 1 Qualified Code(s): E10.10 - Type 1 diabetes mellitus with ketoacidosis without coma (2) Fracture, ribs Encounter type: initial encounter Fracture type: closed Laterality: left Rib fracture type: multiple ribs Qualified Code(s): S22.42XA - Multiple fractures of ribs, left side, initial encounter for closed fracture (6) Hypothyroidism Hypothyroidism type: acquired Qualified Code(s): E03.9 - Hypothyroidism, unspecified (7) Hypertension Hypertension type: essential hypertension Qualified Code(s): I10 - Essential (primary) hypertension
[2023-08-07] MEDS: INSULIN ASPART PER UNIT CHARGE SC SCH (00:45)
[2023-08-07 08:34] LABS: BUN Creatinine Ratio 9.8 (10-20); Calcium 8.2 mg/dl (8.6-10.3); Creatinine Clr Calc Pharmacy 87.3 ml/min; Est GFR (African American) 100.3 ml/min; Est GFR (Non-African American) 86.5 ml/min; Magnesium 2.1 mg/dl (1.7-2.4); Phosphorus 3.1 mg/dl (2.5-4.9); Potassium 4.5 mmol/L (3.5-5.1)
[2023-08-07] MEDS: LANTUS PER UNIT CHARGE SC SCH ×2 (12:37→12:42)
--- NOTE | 2023-08-07 13:00 | Infectious Disease Progress Nt ---
Date of Service August 07, 2023 Assessment & Plan (1) Foot ulceration: (2) Positive blood culture: (3) Right rib fracture: (4) ROHIT (acute kidney injury): (5) DKA (diabetic ketoacidosis): Plan 73yo M with h/o CHF, T1DM uncontrolled, hypothyroidism, LE edema, HTN, HLD, right partial knee replacement, who presented on 08/02 with fall. He tripped and fell against a piano bench on his right lateral chest. Of note, he was noted to have a left heel ulcer and was recently started on doxycycline by his PCP while waiting to see wound care the following week. Here, he has been afebrile, vss. Initial labs with WBC 8.25, Cr 1.12, AST/ALT wnl. PCT 0.62. UA negative. CXR with fractures of the right 7th and 8th ribs, CTAP noted rib fractures. CT C spine without acute findings. CT chest with rib fractures, no PTX, stable pulmonary nodules. CTH without acute findings. TTE technically difficult, no visualized vegetations. He was admitted with DKA as well as concerns for left foot infection. BCx from admission returned positive for Micrococcus and ID was consulted. Micrococcus is a common contaminant, however his BCx have 2 bottles from 2 separate sites that are positive. Unclear if this is a true infection vs contamination. Repeat blood cx are so far no growth. If its a true infection, it could be from his left heel ulcer, though there doesnt appear to be significant cellulitis there and I suspect this is more likely a contaminant. Hes on Unasyn for coverage of foot ulcer. If BCx from 08/04 remain negative, then will plan to complete 2 more days of abx (eot 08/08), which can be done with augmentin. Vancomycin 08/04-08/05 Zosyn 08/02-08/05 Unasyn 08/05-present 08/02 BCX: micrococcus in aerobic bottles of both sets 08/04 BCX: ngtd # BCx with Micrococcus - ?true infection vs contaminant # Left heel ulcer # DKA - resolved # Right sided rib fractures # ROHIT improved - continue Unasyn 3g IV q6h - f/u BCx from 08/04 - if 08/04 BCX remain negative by this afternoon (at 48hrs), then complete 2 more days of abx with Augmentin 875mg PO twice daily (last day on 08/08) Kayley Moore MD [facility], Division of Infectious Diseases [facility]Connect: [phone] Admission and Anticipated Discharge Date Admission Date: August 03, 2023 Subjective This patient recommendation is based on a telemedicine consult request which was completed asynchronously through chart review and information provided by the primary physician. The patient was not seen or examined today. The evaluation is consultative in nature and all patient care and treatment decisions can either be accepted or rejected by the patient's primary hospital-based treating physician using their own independent medical judgment for their patient. Time Spent Reviewing Chart: 31+ minutes Results & Data Vital Signs (Past 12 Hours) Vital Signs Temp Pulse Resp BP BP Pulse Ox O2 Del Method 08/07/23 11:50 37.1 C 84 20 147/76 H 100 Room Air 08/07/23 08:00 Room Air 08/07/23 07:33 36.9 C 87 19 179/87 H 97 Room Air 08/07/23 03:33 36.9 C 86 18 150/81 H 97 Room Air (3) Right rib fracture Encounter type: initial encounter Fracture type: closed Rib fracture type: multiple ribs Qualified Code(s): S22.41XA - Multiple fractures of ribs, right side, initial encounter for closed fracture (5) DKA (diabetic ketoacidosis) Diabetes mellitus complication detail: without coma Diabetes mellitus type: type 1 Qualified Code(s): E10.10 - Type 1 diabetes mellitus with ketoacidosis without coma
--- NOTE | 2023-08-07 13:54 | Pharmacy Report ---
Pharmacy Glycemic Short Note 2 - Date of Service August 07, 2023 - Glycemic Short BSG Results (Last 24 hours): 08/06/23 08/06/23 08/07/23 16:49 20:22 00:27 Glucose POC Glucose 106 H 103 H 79 08/07/23 08/07/23 08/07/23 03:47 07:32 07:47 Glucose 143 H POC Glucose 83 148 H 08/07/23 08/07/23 11:47 11:49 Glucose POC Glucose 326 H* 290 H OUTPATIENT ANTIDIABETIC REGIMEN: * Lantus 25 units daily, lispro SSI, metformin ASSESSMENT: 08/06: * Kvng received 13 units of insulin yesterday (5 were basal) * Fasting BSG within goal range this AM, trends in basal insulin tend to be reflected in BSGs slightly slower than expected (36-48 hours), expect he will need more then 5 units of basal. Will take the difference between basal regimens yesterday and 2 days ago for today's dose. Will start at lunchtime since lunchtime BSG significantly elevated and to mimic patient's home regimen. * He was switched to Unasyn for his antibiotics, no other glycemic stressors noted. * Novolog significantly loosened due to hypoglycemia yesterday, will continue for now, may need tighter coverage. Loose overnight checks added to monitor for overnight hypoglycemia and correct if needed. 08/04: * Kvng received 55 units of insulin (26 were basal) * Symptomatic hypoglycemic (shakiness) event this morning, treated with 2 orange juices and 50mL of D5W, BSGs recovered and then back below goal range at lunch, basal insulin deferred back to dinner at least 50% dose reduction, more reduction if BSGs in goal range. Overnight checks added with loose correction factor to supplement if basal dose insufficient. * Cause of hypoglycemia unclear, potentially from stressed basal insulin doses when transitioning from drip or stacking of Novolog from too tight parameters yesterday. Novolog loosened to a weight based stress of 2. BSG goal range increased to also help prevent hypoglycemia. * He continues on Zosyn for his foot ulcer 08/03: * Kvng received 47 units of insulin yesterday (30 were basal) * Fasting BSG this AM below goal range, decrease basal insulin back to home dosage * He is receiving Zosyn and vancomycin currently as well as 1/2NS with 20mEq KCl @ 110mLs/hr * Novolog appears to be adequately addressing needs at this time, continue. 08/03: * Patient transitioned from insulin infusion last PM, fasting 146 mg/dL this morning. Will continue with same lantus for now. * Reviewed diabetes visit from 07/29- patient is a type 1 diabetic, typically takes 24 units of rapid acting insulin when BSGs are >300 * Has history of hypoglycemia unawareness. * Continue with same novolog parameters today, consider tightening if BSGs trend upward again 08/02 * 73 year old admitted with DKA - started on insulin infusion per DKA protocol. Gap closing this evening and labs improving - Provider reaching out to pharmacy to help with drip transition - reasonable to start SQ basal insulin to help with drip transition. Insulin drip rate still running at high rate ~8 units/hr this evening, anticipate rate to decrease over next few hours. Will give full weight based stress of 2 dosing for Lantus. Plan to overlap with insulin drip until BSG < 150 or 6 hours whichever is first. PLAN FOR INPATIENT GLYCEMIC CONTROL: * Hold outpatient oral diabetes medications * Basal insulin * Lantus 15 units SQ daily at noon * Bolus insulin- * NovoLog per scale ACHS or Q6hrs while NPO * Goal Range: Low 120 mg/dL - High 160 mg/dL * Correction Factor: 30 mg/dL/unit * Nutritional / Prandial insulin per carb ratio of 1 unit per 7 grams CHO consumed * Bolus insulin- overnight checks * NovoLog per scale AC or Q6hrs while NPO * Goal Range: Low 120 mg/dL - High 160 mg/dL * Correction Factor: 50 mg/dL/unit
--- NOTE | 2023-08-07 22:41 | Hospitalist Progress Note ---
Date of Service August 07, 2023 Assessment & Plan (1) DKA (diabetic ketoacidosis): Plan: DKA with Glucose > 600PH <7.2, AGAP 20, HCO3 14 treated with Insulin drip frequent blood draws IVF anion gap now closed. tolerating diet. Bacteremia - Possibly infection related secondary to left heel wound- see below blood cultures showed micrococcus which is likely a contaminant. However, it is strange that 2 cultures grew the same organism. ID consulted, plan is to discharge on Augmentin if repeat cultures are negative at the 48 hour layne. However given patient's weaness, will have PT/OT re-eval patient on 08/07 (2) Fracture, ribs: Plan: S/P Fall at home- 7th and 8th posterior without pneumothorax or hemothorax noted - multifaceted pain control- tyelnol, lidocaine patch, oxy 5mg q6 prn, morphine q3 for severe pain- rescue narcan available of needed - splinting of of righ side with ICS, CDB - ICS q 1 hour - OOB to chair with assistance TID (3) Foot ulceration: Plan: Left heel ulceration with open skin, errythema and serous drainage - scab on left top of foot- healing - blood cultures x2 and PCT ordered - Will cover with Zosyn at this time for diabetic foot ulcer will consult wound care: appreciate input patient with bacteremia, appreciate input. 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 .09 - Likely related to volume status with DKA - replete intravascular volume- hold KYLE/ARB and diuretics for 24 hours - follow renal indices in morning (6) Hypothyroidism: Plan: Continue Synthroid- chronic stable (7) Hypertension: Plan: Chronic stable - Will hold KYLE/ARB currently with ROHIT - Hold Diuretic Therapy at this time with ROHIT and hypovolemic picture on assessment - replete intravascular volume- likely able to restart in 24 hours - BP likely to be elevated secondary to pain from rib fractures as above- tiered pain control and follow (8) Dyslipidemia: Plan: Continue high intensity statin - atorvastatin 80mg nightly (9) DVT prophylaxis: Plan: SCDS - chemoprophylaxis with Heparin 5000 units sub q q12 hours to start on 08/04/23 at 0900- follow for any bleeding post fall (10) Heart failure: Plan: HFpEF with elevated RVSP - chronic problem not an acute exacerbation at this time - Follow fluid volume status- currently appears hypovolemic with dry mucous membranes, thirst, poor skin turgor - allow to drink to thirst Admission and Anticipated Discharge Date Admission Date: August 03, 2023 Subjective Patient reports no new symptoms. Nurse reports patient has not been out of bed. Patient has appeared to be very weak. Nurse expresses concern if he can handle himself at home. Review of Systems Review of Systems: All systems reviewed & are unremarkable except as noted in HPI & below Physical Exam Physical Exam: General: awake, alert, no apparent distress Head: Normocephalic, atraumatic ENT: PERRLA, EOMI Neuro: AAO x 3 Chest: Clear to auscultation, on room air, Cardiac: Regular rate and rhythm, \ GI: NABS x 4 quadrants, soft, nontender to palpation, no rebound, guarding or tenderness Results & Data Results & Data Vital Signs (Past 12 Hours) Vital Signs Temp Pulse Resp BP BP Pulse Ox O2 Del Method 08/07/23 20:40 Room Air 08/07/23 19:27 37.1 C 87 16 138/70 99 Room Air 08/07/23 15:15 36.9 C 83 20 135/68 96 Room Air 08/07/23 11:50 37.1 C 84 20 147/76 H 100 Room Air PG Care Time/CCT Total # of Minutes Spent Total Time Spent with Patient: Total time spent is greater than 50% in coordination of care (as documented) at patient's floor/unit and/or counseling patient: Coding Level of Care Code 70240 SUB INP/OBS CARE 2/35MIN Diagnoses DKA (diabetic ketoacidosis) E10.10 Diabetes mellitus complication detail: without coma Diabetes mellitus type: type 1 Fracture, ribs S22.42XA Encounter type: initial encounter Fracture type: closed Laterality: left Rib fracture type: multiple ribs Foot ulceration L97.509 GERD (gastroesophageal reflux disease) K21.9 ROHIT (acute kidney injury) N17.9 Acquired hypothyroidism E03.9 Hypothyroidism type: acquired Essential hypertension I10 Hypertension type: essential hypertension Dyslipidemia E78.5 DVT prophylaxis Z29.9 Heart failure I50.9 (1) DKA (diabetic ketoacidosis) Diabetes mellitus complication detail: without coma Diabetes mellitus type: type 1 Qualified Code(s): E10.10 - Type 1 diabetes mellitus with ketoacidosis without coma (2) Fracture, ribs Encounter type: initial encounter Fracture type: closed Laterality: left Rib fracture type: multiple ribs Qualified Code(s): S22.42XA - Multiple fractures of ribs, left side, initial encounter for closed fracture (6) Hypothyroidism Hypothyroidism type: acquired Qualified Code(s): E03.9 - Hypothyroidism, unspecified (7) Hypertension Hypertension type: essential hypertension Qualified Code(s): I10 - Essential (primary) hypertension
[2023-08-08] MEDS: INSULIN ASPART PER UNIT CHARGE SC SCH (00:34)
[2023-08-08 06:30] LABS: Hematocrit (blood only) 33.9 % (42.0-52.0); Hemoglobin 10.8 g/dl (14.0-18.0); Mean Corpuscular Hgb Conc 31.9 g/dL (32.0-36.0); Mean Corpuscular Volume 90.9 fL (80.0-100.0); Platelet Count 212 K/uL (130-400); RDW Coefficient of Variation 14.6 % (11.5-14.5); RDW Standard Deviation 48.7 fL (36.4-46.3); Red Blood Count 3.73 M/uL (4.70-6.10)
[2023-08-08 06:39] LABS: BUN Creatinine Ratio 14.9 (10-20); Calcium 8.4 mg/dl (8.6-10.3); Creatinine Clr Calc Pharmacy 82.2 ml/min; Est GFR (African American) 97.8 ml/min; Est GFR (Non-African American) 84.4 ml/min; Potassium 4.2 mmol/L (3.5-5.1)
[2023-08-08] MEDS: POLYETHYLENE (MIRALAX) 17 GM PACK PO SCH (08:20)
--- NOTE | 2023-08-08 09:55 | Hospitalist Progress Note ---
Date of Service August 08, 2023 Assessment & Plan (1) DKA (diabetic ketoacidosis): Plan: DKA with Glucose > 600PH <7.2, AGAP 20, HCO3 14 treated with Insulin drip frequent blood draws IVF anion gap now closed. tolerating diet. on basal bolus insulin Bacteremia - Possibly infection related secondary to left heel wound- see below blood cultures showed micrococcus which is likely a contaminant. However, concern that 2 cultures grew the same organism. ID consulted, plan is to discharge on Augmentin as repeat cultures are negative at the 48 hour layne. However given patient's weakness, consideration for subacute rehab (2) Foot ulceration: Plan: Left heel ulceration with open skin, errythema and serous drainage, POA - scab on left top of foot- healing - blood cultures x2 and PCT ordered - Will cover with Zosyn at this time for diabetic foot ulcer, transition to augmentin will consult wound care: appreciate input (3) GERD (gastroesophageal reflux disease): Plan: Continue with PPI - consider Reglan if needed in regards to likely diabetic gastroparesis with vomiting - noted CT imaging with particles in esophagus (4) ROHIT (acute kidney injury): Plan: TAJ II with ckd 3 - Likely related to volume status with DKA - replete intravascular volume- hold KYLE/ARB and diuretics for 24 hours - follow renal indices in morning (5) Hypothyroidism: Plan: Continue Synthroid- chronic stable (6) Hypertension: Plan: Chronic stable - Will hold KYLE/ARB currently with ROHIT - Hold Diuretic Therapy at this time with ROHIT and hypovolemic picture on assessment - replete intravascular volume- likely able to restart in 24 hours - BP likely to be elevated secondary to pain from rib fractures as above- tiered pain control and follow (7) Dyslipidemia: Plan: Continue high intensity statin - atorvastatin 80mg nightly (8) DVT prophylaxis: Plan: SCDS - chemoprophylaxis with Heparin 5000 units sub q q12 hours to start on 08/04/23 at 0900- follow for any bleeding post fall (9) Heart failure: Plan: Chronic and stable HFpEF with elevated RVSP - chronic problem not an acute exacerbation at this time - Follow fluid volume status- currently appears hypovolemic with dry mucous membranes, thirst, poor skin turgor - allow to drink to thirst Admission and Anticipated Discharge Date Admission Date: August 03, 2023 Subjective Patient has persistent pain. This limits his ability to move about care for himself. Patient has no coughing. He is eating food he has gone to the bathroom today. Physical Exam Physical Exam: Keep he appears in mild distress he has some splinting to his right ribs. His diminished breath sounds at the bases but no overt loss of breath sounds. Card exam is regular without murmurs Extremities are without edema Results & Data Results & Data Vital Signs (Past 12 Hours) Vital Signs Temp Pulse Pulse Pulse Resp BP BP 08/08/23 08:14 95 H 08/08/23 07:19 97.9 F 90 19 160/81 H 08/08/23 06:45 85 08/07/23 22:57 98.8 F 84 18 156/66 H 08/07/23 21:56 84 Pulse Ox O2 Del Method 08/08/23 08:14 08/08/23 07:19 95 Room Air 08/08/23 06:45 08/07/23 22:57 97 Room Air 08/07/23 21:56 PG Care Time/CCT Total # of Minutes Spent Total Time Spent with Patient: Total time spent is greater than 50% in coordination of care (as documented) at patient's floor/unit and/or counseling patient: Coding Level of Care Code 74534 SUB INP/OBS CARE 2/35MIN Diagnoses DKA (diabetic ketoacidosis) E10.10 Diabetes mellitus complication detail: without coma Diabetes mellitus type: type 1 Foot ulceration L97.509 GERD (gastroesophageal reflux disease) K21.9 ROHIT (acute kidney injury) N17.9 Acquired hypothyroidism E03.9 Hypothyroidism type: acquired Essential hypertension I10 Hypertension type: essential hypertension Dyslipidemia E78.5 DVT prophylaxis Z29.9 Heart failure I50.9 (1) DKA (diabetic ketoacidosis) Diabetes mellitus complication detail: without coma Diabetes mellitus type: type 1 Qualified Code(s): E10.10 - Type 1 diabetes mellitus with ketoacidosis without coma (5) Hypothyroidism Hypothyroidism type: acquired Qualified Code(s): E03.9 - Hypothyroidism, unspecified (6) Hypertension Hypertension type: essential hypertension Qualified Code(s): I10 - Essential (primary) hypertension
[2023-08-08] MEDS: traMADol HCL 50 MG TABLET PO STA (13:55)
[2023-08-08] MEDS ORDERED: ACETAMINOPHEN 500 MG TAB PO SCH (14:00)
--- NOTE | 2023-08-08 15:16 | Infectious Disease Progress Nt ---
Date of Service August 08, 2023 Assessment & Plan (1) Foot ulceration: (2) Positive blood culture: (3) Right rib fracture: (4) ROHIT (acute kidney injury): (5) DKA (diabetic ketoacidosis): Plan 73yo M with h/o CHF, T1DM uncontrolled, hypothyroidism, LE edema, HTN, HLD, right partial knee replacement, who presented on 08/02 with fall. He tripped and fell against a piano bench on his right lateral chest. Of note, he was noted to have a left heel ulcer and was recently started on doxycycline by his PCP while waiting to see wound care the following week. Here, he has been afebrile, vss. Initial labs with WBC 8.25, Cr 1.12, AST/ALT wnl. PCT 0.62. UA negative. CXR with fractures of the right 7th and 8th ribs, CTAP noted rib fractures. CT C spine without acute findings. CT chest with rib fractures, no PTX, stable pulmonary nodules. CTH without acute findings. TTE technically difficult, no visualized vegetations. He was admitted with DKA as well as concerns for left foot infection. BCx from admission returned positive for Micrococcus and ID was consulted. Micrococcus is a common contaminant, however his BCx have 2 bottles from 2 separate sites that are positive. Unclear if this is a true infection vs contamination. Repeat blood cx are so far no growth. If its a true infection, it could be from his left heel ulcer, though there doesnt appear to be significant cellulitis there and I suspect this is more likely a contaminant. Hes on Unasyn for coverage of foot ulcer. BCx from 08/04 remain negative. Plan to complete short course of abx (eot 08/08), which can be done with augmentin. Abx: Vancomycin 08/04-08/05 Zosyn 08/02-08/05 Unasyn 08/05- 08/02 BCX: micrococcus in aerobic bottles of both sets 08/04 BCX: ngtd # BCx with Micrococcus - ?true infection vs contaminant # Left heel ulcer # DKA - resolved # Right sided rib fractures # ROHIT improved - continue Unasyn 3g IV q6h - complete abx through 08/08, can be done with Augmentin 875mg PO twice daily ID will discontinue active follow up at this time. Please do not hesitate to reconsult the Infectious Diseases service as needed. Kayley Moore MD [facility], Division of Infectious Diseases [employer]Connect: [phone] Admission and Anticipated Discharge Date Admission Date: August 03, 2023 Subjective This patient recommendation is based on a telemedicine consult request which was completed asynchronously through chart review and information provided by the primary physician. The patient was not seen or examined today. The evaluation is consultative in nature and all patient care and treatment decisions can either be accepted or rejected by the patient's primary hospital-based treating physician using their own independent medical judgment for their patient. Time Spent Reviewing Chart: 31+ minutes Results & Data Vital Signs (Past 12 Hours) Vital Signs Temp Pulse Pulse Pulse Resp BP Pulse Ox 08/08/23 11:13 36.9 C 88 19 133/75 99 08/08/23 10:49 97 08/08/23 08:14 95 H 08/08/23 07:19 36.6 C 90 19 160/81 H 95 08/08/23 06:45 85 O2 Del Method 08/08/23 11:13 Room Air 08/08/23 10:49 08/08/23 08:14 08/08/23 07:19 Room Air 08/08/23 06:45 (3) Right rib fracture Encounter type: initial encounter Fracture type: closed Rib fracture type: multiple ribs Qualified Code(s): S22.41XA - Multiple fractures of ribs, right side, initial encounter for closed fracture (5) DKA (diabetic ketoacidosis) Diabetes mellitus complication detail: without coma Diabetes mellitus type: type 1 Qualified Code(s): E10.10 - Type 1 diabetes mellitus with ketoacidosis without coma
[2023-08-08] MEDS: ACETAMINOPHEN 500 MG TAB PO SCH (16:49)
[2023-08-08] MEDS: traMADol HCL 50 MG TABLET PO SCH (21:04)
[2023-08-09] MEDS: LANTUS PER UNIT CHARGE SC SCH (09:34)
--- NOTE | 2023-08-09 09:55 | Pharmacy Report ---
Pharmacy Glycemic Short Note 2 - Date of Service August 09, 2023 - Glycemic Short BSG Results (Last 24 hours): 08/08/23 08/08/23 08/08/23 11:51 11:53 16:45 POC Glucose 354 H* 324 H* 414 H* 08/08/23 08/08/23 08/09/23 16:47 20:41 07:42 POC Glucose 364 H* 232 H 161 H OUTPATIENT ANTIDIABETIC REGIMEN: * Lantus 25 units daily, lispro SSI, metformin HbA1c: 8.8% (08/03/23) ASSESSMENT: 08/08: * Blood sugars poorly controlled yesterday, ranging 166-364 mg/dL * Received 57 units of insulin (15 units of basal and 42 units of prandial/correctional bolus) * Had been conservative for past couple of days due to previous episode of hypoglycemia and hypoglycemia unawareness * Will increase basal today and tighten carb ratio 08/06: * Kvng received 13 units of insulin yesterday (5 were basal) * Fasting BSG within goal range this AM, trends in basal insulin tend to be reflected in BSGs slightly slower than expected (36-48 hours), expect he will need more then 5 units of basal. Will take the difference between basal regimens yesterday and 2 days ago for today's dose. Will start at lunchtime since lunchtime BSG significantly elevated and to mimic patient's home regimen. * He was switched to Unasyn for his antibiotics, no other glycemic stressors noted. * Novolog significantly loosened due to hypoglycemia yesterday, will continue for now, may need tighter coverage. Loose overnight checks added to monitor for overnight hypoglycemia and correct if needed. 08/04: * Kvng received 55 units of insulin (26 were basal) * Symptomatic hypoglycemic (shakiness) event this morning, treated with 2 orange juices and 50mL of D5W, BSGs recovered and then back below goal range at lunch, basal insulin deferred back to dinner at least 50% dose reduction, more reduction if BSGs in goal range. Overnight checks added with loose correction factor to supplement if basal dose insufficient. * Cause of hypoglycemia unclear, potentially from stressed basal insulin doses when transitioning from drip or stacking of Novolog from too tight parameters yesterday. Novolog loosened to a weight based stress of 2. BSG goal range increased to also help prevent hypoglycemia. * He continues on Zosyn for his foot ulcer 08/02 * 73 year old admitted with DKA - started on insulin infusion per DKA protocol. Gap closing this evening and labs improving - Provider reaching out to pharmacy to help with drip transition - reasonable to start SQ basal insulin to help with drip transition. Insulin drip rate still running at high rate ~8 units/hr this evening, anticipate rate to decrease over next few hours. Will give full weight based stress of 2 dosing for Lantus. Plan to overlap with insulin drip until BSG < 150 or 6 hours whichever is first. PLAN FOR INPATIENT GLYCEMIC CONTROL: * Hold outpatient oral diabetes medications * Basal insulin - increase * Lantus 18 units SC daily * Bolus insulin- * NovoLog per scale ACHS or Q6hrs while NPO * Goal Range: Low 110 mg/dL - High 140 mg/dL * Correction Factor: 20 mg/dL/unit * Nutritional / Prandial insulin per carb ratio of 1 unit per 5 grams CHO consumed
--- NOTE | 2023-08-09 17:01 | Hospitalist Progress Note ---
Date of Service August 09, 2023 Assessment & Plan (1) DKA (diabetic ketoacidosis): Plan: DKA with Glucose > 600PH <7.2, AGAP 20, HCO3 14 treated with Insulin drip, converted to basal bolus insulin (2) Foot ulceration: Plan: Left heel ulceration with open skin, errythema and serous drainage, POA - scab on left top of foot- healing - blood cultures x2 and PCT ordered -Completed course of antibiotic therapy while here will consult wound care continue surveillance wound care at rehab (3) GERD (gastroesophageal reflux disease): Plan: Continue with PPI - consider Reglan if needed in regards to likely diabetic gastroparesis with vomiting - noted CT imaging with particles in esophagus however no clinical issues with swallowing while here (4) ROHIT (acute kidney injury): Plan: ROHIT with ckd 3AKI resolved - Likely related to volume status with DKA - replete intravascular volume- hold KYLE/ARB and diuretics for 24 hours - follow renal indices in morning (5) Hypothyroidism: Plan: Continue Synthroid- chronic stable (6) Hypertension: Plan: Chronic stable - Will hold KYLE/ARB currently with ROHIT - Hold Diuretic Therapy at this time with ROHIT and hypovolemic picture on assessment - replete intravascular volume- likely able to restart in 24 hours - BP likely to be elevated secondary to pain from rib fractures as above- tiered pain control and follow (7) Dyslipidemia: Plan: Continue high intensity statin - atorvastatin 80mg nightly (8) Heart failure: Plan: Chronic and stable HFpEF with elevated RVSP - chronic problem not an acute exacerbation at this time - Follow fluid volume status- currently appears hypovolemic with dry mucous membranes, thirst, poor skin turgor - allow to drink to thirst Plan Bacteremia - Possibly infection related secondary to left heel wound- see below blood cultures showed micrococcus which is likely a contaminant. However, concern that 2 cultures grew the same organism. ID consulted, plan is to discharge on Augmentin as repeat cultures are negative at the 48 hour layne. Recommendation continue antibiotics through 08/08 which was accomplished However given patient's weakness, consideration for subacute rehab Admission and Anticipated Discharge Date Admission Date: August 03, 2023 Subjective Much improved pain with Ultram. No [employer] effects. Patient looking forward to rehab. Moving better with Ultram. Physical Exam Physical Exam: Awake alert and appropriate. Patient still with some pleuritic chest pain with inspiration Results & Data Results & Data Vital Signs (Past 12 Hours) Vital Signs Temp Pulse Resp BP Pulse Ox O2 Del Method 08/09/23 11:00 97.7 F 82 16 128/74 97 Room Air 08/09/23 08:00 97.5 F L 71 18 148/69 H 96 Room Air Laboratory Results Reviewed [id number] glucose some suboptimal control pharmacy glycemic oversight PG Care Time/CCT Total # of Minutes Spent Total Time Spent with Patient: Total time spent is greater than 50% in coordination of care (as documented) at patient's floor/unit and/or counseling patient: Coding Level of Care Code 53618 SUB INP/OBS CARE 3/50MIN Diagnoses DKA (diabetic ketoacidosis) E10.10 Diabetes mellitus complication detail: without coma Diabetes mellitus type: type 1 Foot ulceration L97.509 GERD (gastroesophageal reflux disease) K21.9 ROHIT (acute kidney injury) N17.9 Acquired hypothyroidism E03.9 Hypothyroidism type: acquired Essential hypertension I10 Hypertension type: essential hypertension Dyslipidemia E78.5 Heart failure I50.9 (1) DKA (diabetic ketoacidosis) Diabetes mellitus complication detail: without coma Diabetes mellitus type: type 1 Qualified Code(s): E10.10 - Type 1 diabetes mellitus with ketoacidosis without coma (5) Hypothyroidism Hypothyroidism type: acquired Qualified Code(s): E03.9 - Hypothyroidism, unspecified (6) Hypertension Hypertension type: essential hypertension Qualified Code(s): I10 - Essential (primary) hypertension
[2023-08-10 06:51] LABS: Hematocrit (blood only) 30.2 % (42.0-52.0); Hemoglobin 9.9 g/dl (14.0-18.0); Mean Corpuscular Hemoglobin 29.5 pg (25.0-34.0); Mean Corpuscular Hgb Conc 32.8 g/dL (32.0-36.0); Mean Corpuscular Volume 89.9 fL (80.0-100.0); Mean Platelet Volume 10.1 fL (9.4-12.4); Platelet Count 194 K/uL (130-400); RDW Coefficient of Variation 14.8 % (11.5-14.5); RDW Standard Deviation 48.7 fL (36.4-46.3); Red Blood Count 3.36 M/uL (4.70-6.10); White Blood Count 4.06 K/ul (4.8-10.8)
[2023-08-10 07:18] LABS: BUN Creatinine Ratio 20.9 (10-20); Calcium 9.3 mg/dl (8.6-10.3); Creatinine Clr Calc Pharmacy 84.8 ml/min; Est GFR (African American) 98.3 ml/min; Est GFR (Non-African American) 84.8 ml/min; Potassium 4.2 mmol/L (3.5-5.1)
--- NOTE | 2023-08-10 08:08 | Discharge Summary ---
Date of Service August 11, 2023 Admission HPI Per Admitting Provider 73 YOM with history of: HFpEF with elevated RVSP, Hypothyroidism, HTN, HLD, DMI uncontrolled, GERD, edema of lower extremities. Patient presents to the EMD today via EMS after he reports getting up around 1030 this morning to go to the restroom, following this he fell over striking his right back on corner of piano bench. His was able to get him up and into chair while EMS came. He was also able to assist getting into stretcher. In the EMD the patient had routine labs performed, CXR, ECG, and VBG performed. He was noted on his imaging to have 7th and 8th rib fractures. These fractures were not associated with pneumothorax or hemothorax. His labs returned with elevated glucose >600, AGAP 20, PH 7.22 and Hco3 of 14- consistent with DKA. He was given 1L in 500ml aliquots for volume and started on insulin infusion. He did receive pain medication in the form of fentanyl for his rib fractures. Hospitalist was consulted for admission. Patient noted to have left heel ulceration and scab on top of left foot, he reports that he was recently started on Antibiotic (doxycycline by his PCP) while awaiting wound care appointment next week. He is with guarding to his right side and arm. Remains with dry mucous membranes as well and reporting of thirst. Patient will be admitted to PCU for insulin infusion and DKA management. He will be given 1L of crystalloid at this time followed by 110ml of LR/hour. Tiered pain control with rescue Narcan will be available. BLood culture and PCT will be drawn. Zosyn for foot ulceration until evaluation completed. CODE: FULL Principal Diagnosis rib fractures with intractable pain Discharge Exam pt is in little distress cardiac is regular lungs are clear Discharge Data Allergies Allergy/AdvReac Type Severity Reaction Status Date / Time Iodinated Contrast Media Allergy Unknown UNKNOWN Verified 08/03/23 12:56 REACTION iodine Allergy Unknown TOPICAL Verified 08/03/23 12:56 REDNESS AND EDEMA Consultations 08/03/23 13:11 ED Decision to Admit Stat 08/06/23 09:34 Consult Infectious Diseases Routine Ordered Studies 08/03/23 11:46 CT abd pelvis wo con Stat CT cervical spine wo con Stat CT chest diagnostic wo con Stat CT head/brain wo con Stat Hospital Course (1) DKA (diabetic ketoacidosis): DKA with Glucose > 600PH <7.2, AGAP 20, HCO3 14 treated with Insulin drip, converted to basal bolus insulin home on metformin, is held at transition (2) Foot ulceration: Left heel ulceration with open skin, errythema and serous drainage, POA - scab on left top of foot- healing - blood cultures x2 and PCT ordered -Completed course of antibiotic therapy while here will consult wound care continue surveillance wound care at rehab Pressure ulcer of left heel, unstageable, POA (3) GERD (gastroesophageal reflux disease): Continue with PPI - consider Reglan if needed in regards to likely diabetic gastroparesis with vomiting - noted CT imaging with particles in esophagus however no clinical issues with swallowing while here (4) ROHIT (acute kidney injury): ROHIT with ckd 3AKI resolved - Likely related to volume status with DKA - (5) Hypothyroidism: Continue Synthroid- chronic stable (6) Hypertension: Chronic stable - BP likely to be elevated secondary to pain from rib fractures as above- good pain control with ultram and tylenol (7) Dyslipidemia: Continue high intensity statin - atorvastatin 80mg nightly (8) Heart failure: Chronic and stable HFpEF with elevated RVSP - chronic problem not an acute exacerbation at this time diuretics and ramipril held at discharge Plan Bacteremia - Possibly infection related secondary to left heel wound- see below blood cultures showed micrococcus which is likely a contaminant. However, concern that 2 cultures grew the same organism. ID consulted, plan is to discharge on Augmentin as repeat cultures are negative at the 48 hour layne. Recommendation continue antibiotics through 08/08 which was accomplished However given patient's weakness, consideration for subacute rehab Total Time Total Time Spent Total Time Spent (In Minutes): It required greater than 30 minutes to prepare this patient for discharge. Discharge Plan Discharge Items Patient Disposition: Transfer Intermediate Fac Reason For Visit: FALL/DKA Discharge Diagnosis: mechanical fall with right rib fractures Diabetic ketoacidosis heel decubitus ulcer poa, with infection Activity: Per Instructions section Activity Comment: PT/OT Non-emergency contact: Primary Care Provider Call non-emergency contact if: your symptoms worsen Follow-up/Referrals: Paulina Johns DO [Primary Care Provider] - 08/19/23 11:00 am Diet: Carb Consistent or DM2 Addtl Attending Provider Instructions: please eval for pain control and reinforce incentive spirometry watch and follow glucose with recent DKA, pt typically on home metformin not restarted at discharge Pending Studies at Discharge: No Stand-Alone Forms: My [facility] Skilled Items Patient informed of condition?: Yes DNR: No Discharge Level of Care: Skilled Communicable Disease: No Discharge Prognosis: Stable Lines: None Urinary Catheter: No Medications and DC Order Prescriptions: New acetaminophen [Tylenol Extra Strength] 500 mg Tablet 1,000 mg PO Q8H Qty: 30 0RF insulin glargine [Lantus U-100 Insulin] 100 unit/mL Solution 18 unit SC DAILY Qty: 1 0RF tramadol 50 mg Tablet 50 mg PO BID Qty: 14 0RF insulin aspart U-100 [Novolog U-100 Insulin aspart] 100 unit/mL Solution 1 unit SC ACHS Qty: 10 0RF Rx Instructions: -Goal BSG Range: Low 110 mg/dL, High 140 mg/dL --Correction Factor: 30 mg/dL/unit --Carbohydrate ratio = 5 g/unit oxycodone 5 mg Tablet 5 mg PO Q8 PRN (Reason: pain) Qty: 10 0RF Continued calcitriol 0.5 mcg capsule 0.5 mcg PO DAILY Qty: 90 1RF escitalopram oxalate 20 mg tablet 20 mg PO DAILY Qty: 90 3RF atorvastatin 80 mg tablet 80 mg PO QPM Qty: 90 3RF Rx Instructions: for cholesterol (DME) pen needle, diabetic [BD Ultra-Fine Verito Pen Needle] 32 gauge x 5/32" needle See Rx Instructions .ROUTE .MEDSUPPLY Qty: 500 3RF Rx Instructions: Use 5 daily to inject insulin cyanocobalamin (vitamin B-12) 2,500 mcg tablet 2,500 mcg PO DAILY (DME) Dexcom G6 Sensor Device See Rx Instructions .Route Qty: 3 0RF Rx Instructions: As directed omeprazole 40 mg capsule,delayed release(DR/EC) 40 mg PO DAILY Qty: 30 2RF multivitamin Tablet 1 tab PO QAM Simbrinza 1-0.2 % Drops,Suspension 1 drp OPHTHALMIC (EYE) BID levothyroxine 50 mcg tablet See Rx Instructions .ROUTE .COMPLEX Rx Instructions: Take 200mcg w/ 50mcg to equal 250mcg once every morning levothyroxine 200 mcg tablet See Rx Instructions .ROUTE .COMPLEX Rx Instructions: Take 200mcg w/ 50mcg to equal 250mcg once every morning Discontinued metformin 500 mg tablet extended release 24hr 1,000 mg PO DAILY Qty: 180 3RF insulin lispro [Humalog KwikPen Insulin] 100 unit/mL insulin pen See Rx Instructions .ROUTE .COMPLEX Qty: 60 3RF Rx Instructions: Inject per sliding scale up to 60 units per day; doxycycline hyclate 100 mg tablet 100 mg PO BID Rx Instructions: Start Date 07/30/23 - End Date 08/09/23 Gvoke HypoPen 1-Pack 1 mg/0.2 mL auto-injector 1 mg subcut ONCE PRN (Reason: severe hypoglycemia) Qty: 0.2 1RF furosemide 40 mg tablet 40 mg PO DAILY 4 Days Qty: 4 2RF Ocuvite Adult 50 Plus 250-5-1 mg Capsule 1 cap PO QAM insulin glargine [Lantus Solostar U-100 Insulin] 100 unit/mL (3 mL) insulin pen 25 unit subcut UD Rx Instructions: Daily at noon spironolactone [Aldactone] 25 mg tablet 25 mg PO QAM ramipril 10 mg capsule 10 mg PO HS Discharge Orders: Discharge Order (Routine); Ordered 08/11/23 Ordered By: Jevon Duran/Other Patient Handouts: High Blood Sugar (Hyperglycemia), Managing Type 1 Diabetes Admission Data Admit Date/Time: 08/03/23 13:18 Attending Provider: Jevon Barboza Admit Provider: John Reina Primary Care Provider: Paulina Johns Other Providers: Jevon Barboza; Heather Mancini; Jesika Bañuelos; Saqib Ward; Milana Kong; Kayley Moore; Sony Marcial; Dalia Bailey; Sindi Deluna; Vianney Spring [facility]; [place],[facility] Other Interventions: Discharge Summary Assessment (RN) Last Done: 08/11/23 12:35 Coding Level of Care Code 76654 INP/OBS DISCH >30 MIN Diagnoses DKA (diabetic ketoacidosis) E10.10 Diabetes mellitus complication detail: without coma Diabetes mellitus type: type 1 Foot ulceration L97.509 GERD (gastroesophageal reflux disease) K21.9 ROHIT (acute kidney injury) N17.9 Acquired hypothyroidism E03.9 Hypothyroidism type: acquired Essential hypertension I10 Hypertension type: essential hypertension Dyslipidemia E78.5 Heart failure I50.9
--- NOTE | 2023-08-10 14:02 | Hospitalist Progress Note ---
Date of Service August 10, 2023 Assessment & Plan (1) DKA (diabetic ketoacidosis): Plan: DKA with Glucose > 600PH <7.2, AGAP 20, HCO3 14 treated with Insulin drip, converted to basal bolus insulin has been slightly high but stable (2) Foot ulceration: Plan: Left heel ulceration with open skin, errythema and serous drainage, POA - scab on left top of foot- healing - blood cultures x2 and PCT ordered -Completed course of antibiotic therapy while here will consult wound care continue surveillance wound care at rehab Pressure ulcer of left heel, unstageable, POA (3) GERD (gastroesophageal reflux disease): Plan: Continue with PPI - consider Reglan if needed in regards to likely diabetic gastroparesis with vomiting - noted CT imaging with particles in esophagus however no clinical issues with swallowing while here (4) ROHIT (acute kidney injury): Plan: ROHIT with ckd 3AKI resolved - Likely related to volume status with DKA - ramipril can restart , holding spironolactone - (5) Hypothyroidism: Plan: Continue Synthroid- chronic stable (6) Hypertension: Plan: Chronic stable - - Hold Diuretic Therapy at this time with ROHIT and hypovolemic picture on assessment - - BP likely to be elevated secondary to pain from rib fractures as above- tiered pain control and follow (7) Dyslipidemia: Plan: Continue high intensity statin - atorvastatin 80mg nightly (8) Heart failure: Plan: Chronic and stable HFpEF with elevated RVSP - chronic problem not an acute exacerbation at this time - Follow fluid volume status- currently appears hypovolemic with dry mucous membranes, thirst, poor skin turgor - allow to drink to thirst Plan Bacteremia - Possibly infection related secondary to left heel wound- see below blood cultures showed micrococcus which is likely a contaminant. However, concern that 2 cultures grew the same organism. ID consulted, plan is to discharge on Augmentin as repeat cultures are negative at the 48 hour layne. Recommendation continue antibiotics through 08/08 which was accomplished However given patient's weakness, consideration for subacute rehab Admission and Anticipated Discharge Date Admission Date: August 03, 2023 Subjective Much improved pain with Ultram. No CODING VALIDATOR effects. Patient looking forward to rehab. Moving better with Ultram. Results & Data Results & Data Vital Signs (Past 12 Hours) Vital Signs Temp Pulse Pulse Resp BP BP Pulse Ox 08/10/23 11:30 98.1 F 87 18 138/63 139/65 97 08/10/23 10:00 78 08/10/23 08:00 08/10/23 07:30 97.9 F 76 16 122/71 96 08/10/23 03:55 98.1 F 80 18 139/66 95 O2 Del Method 08/10/23 11:30 Room Air 08/10/23 10:00 08/10/23 08:00 Room Air 08/10/23 07:30 Room Air 08/10/23 03:55 Room Air Laboratory Results Reviewed CBC reviewed chemistry PG Care Time/CCT Total # of Minutes Spent Total Time Spent with Patient: Total time spent is greater than 50% in coordination of care (as documented) at patient's floor/unit and/or counseling patient: Coding Level of Care Code 18764 SUB INP/OBS CARE 2/35MIN Diagnoses DKA (diabetic ketoacidosis) E10.10 Diabetes mellitus complication detail: without coma Diabetes mellitus type: type 1 Foot ulceration L97.509 GERD (gastroesophageal reflux disease) K21.9 ROHIT (acute kidney injury) N17.9 Acquired hypothyroidism E03.9 Hypothyroidism type: acquired Essential hypertension I10 Hypertension type: essential hypertension Dyslipidemia E78.5 Heart failure I50.9 (1) DKA (diabetic ketoacidosis) Diabetes mellitus complication detail: without coma Diabetes mellitus type: type 1 Qualified Code(s): E10.10 - Type 1 diabetes mellitus with ketoacidosis without coma (5) Hypothyroidism Hypothyroidism type: acquired Qualified Code(s): E03.9 - Hypothyroidism, unspecified (6) Hypertension Hypertension type: essential hypertension Qualified Code(s): I10 - Essential (primary) hypertension
[2023-08-10] MEDS: PROCHLORPERAZINE 5 MG in SYRINGE 4 ML IV PRN (14:28)
[2023-08-10] MEDS: INSULIN ASPART PER UNIT CHARGE SC SCH (18:03)
== END 2023-08-11 13:31 | DRG 638 ==
LOC: ED 10:49 → 4W 13:18 → SUATTDRO 13:18 → 4W 15:00

== ENCOUNTER 2023-08-30 12:01 | Inpatient (IN) ==
--- NOTE | 2023-08-30 12:09 | Emergency Department Note ---
Impression & Plan DKA (diabetic ketoacidosis), ROHIT (acute kidney injury), Acute hyperkalemia, Elevated troponin, Acute confusion ED Provider Note Provider: Geraldo Hernandez MD DATE OF SERVICE: 08/30/2023 CHIEF COMPLAINT: Confusion, hyperglycemia HISTORY OF PRESENT ILLNESS: Patient is a 73-year-old gentleman history of type 1 diabetes presenting here via ambulance from home. Evidently at home found him around 1045 this morning confused and he just slumped to the ground with weakness after coming from the bathroom. Patient's blood sugar greater than 600. Patient denies any medications or insulin or food today. States he got nauseous overnight. Denies significantly falling or significant pain at this time prickly abdominal pain. Little bit slow to answer at times and according to EMS he had somewhat confused. History of falls and rib fractures in the recent past hospitalization for DKA. later arrived and states that he got home from [facility] on Saturday. She is unsure if he has been taking any of his medications since coming home and they have been having issues with the patient's glucose monitor. Patient intermittently believing that there is a coffee cup in the room which is not present. PAST MEDICAL HISTORY: As noted above MEDICATIONS: Reviewed home medications but no meds yet today by report. SOCIAL HISTORY: PHYSICAL EXAM: GENERAL: alert in no acute distress on stretcher and mostly oriented but a little bit slow to answer at times but easily arousable to verbal stimuli. Head: normocephalic and atraumatic EYES: No injection, discharge or icterus. PERRL, EOMI. NECK: Trachea midline. ENT: Mucous membranes pink and moist. LUNGS: Airway patent. No retractions. Breath sounds clear with significant tachypnea HEART: Regular tachycardic rate and rhythm. No chest wall tenderness ABDOMEN: Soft and non-tender, without guarding or rebound. SKIN: Acyanotic, warm, dry, without rashes EXTREMITIES: Without swelling, tenderness or deformity NEUROLOGICAL: No focal deficits moving all extremities. No aphasia. No facial droop or slurred speech. EK bpm atrial fibrillation. Peaked T waves noted. No acute ST segment elevation with a QTc of 510. CONTINUOUS CARDIAC MONITORING: was ordered and showed a heart rate of 90s-110s bpm in normal sinus rhythm to sinus tachycardia Patient's laboratory studies and imaging reviewed. Differential includes Infection, dehydration, metabolic abnormality, hypo/hyperglycemia, electrolyte disturbance, anemia, hypoxia, cardiac sources, intracerebral event, toxicologic, neurologic, as well as other pathologies. IMPRESSION/MEDICAL DECISION MAKING: Patient with weakness and confusion but no significant trauma by report. No significant focal numbness or weakness. Maybe a little bit slower confused to answer. No significant trauma will obtain a head CT given his age and reported some confusion. Benign abdomen but quite tachypneic. [id number] blood work here with severely elevated blood sugar. Question DKA given recent history. Will complete a CT abdomen pelvis. Without contrast given evidence of acute kidney injury on blood work today. Point care blood work also shows evidence of hyperkalemia and he has peaked T waves. Will give IV fluids in addition to insulin and calcium gluconate. Lower suspicion at this time this represents stroke. Again afebrile here and lower suspicion for meningitis at this point. Blood work returns with hemoglobin of 10.9anemia similar to previous. Leukocytosis of almost 17 today but question of this more reactive to his metabolic derangements and illness rather than bacterial infection. Procalcitonin is not significantly elevated & will hold off antibiotics at this time. VBG with a pH less than 7. Pseudohyponatremia with a sodium reported of 126. Hyperkalemia with a potassium on formal labs of 7.4. Again significant anion gap and elevated creatinine today. Blood sugar 942. Troponin 100 which is a new abnormality in question demand related to his metabolic derangements and DKA. Doubt acute ACS/DE. Again receiving IV fluid hydration and 2 L normal saline and a liter of Plasma-Lyte fluid hydration ordered thus far. Head CT radiology without acute abnormality reported. CT abdomen pelvis without Again question possible medication noncompliance and citing his DKA today. Discussed with the hospitalist team as well as ICU attending. Nursing updated. T waves on telemetry appear to be somewhat smaller. Repeat VBG, troponin, and CMP pending at time of admission. DIAGNOSIS: DKA, hyperkalemia, acute kidney injury, confusion, elevated troponin DISPOSITION: Hospitalist will evaluate Patient was agreeable with this plan. Critical Care I have personally spent 49 minutes of critical care time in the direct management of this patient. This includes bedside care, interpretation of diagnostic studies, and testing, discussion with consultants, patient, and family members, and other required patient management activities. These 49 minutes is in excess of all separately billable procedures. Past Med/Surg History Medical History H/O osteoporotic pathological fracture Osteoporosis Left leg cellulitis Edema, lower extremity Sensorineural hearing loss of both ears Chronic pain of right knee Osteoarthritis Glaucoma Temporomandibular joint disorder Surgical History H/O cystoscopy History of tonsillectomy H/O colonoscopy Hx of foot surgery H/O hand surgery History of tooth extraction History of cataract surgery Family History Father Pulmonary embolism Unknown Leukemia Diabetes Cancer Hypertension Mother No problems noted. Other No family history of adverse response to anesthesia No family history of bleeding disorder Denies family history of Ovarian cancer Prostate cancer Myocardial infarction Breast cancer Colorectal cancer Stroke Social History Smoking Status: Never smoker Tobacco Type: Cigarettes Age Started Using Tobacco: 16; Age Quit Using Tobacco: 21; packs per day: 1; Second Hand Exposure: No; Do You Dip or Chew Tobacco: No; Hx Alcohol Use: No Hx Substance Use: No Preferred Language: Bengali Communication Ability: Effective Communication Ability Comment: legally blind Visual Impairment: Severely Limited Hearing Ability: Normal Furnace Firer Required: No Beliefs That Will Affect Care: None marital status: Current Living Situation: Spouse Current Living Situation Comment: lives with in [place] current 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 status: 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 How many Children do You have: 2 How many Children do You have Comment: daughters Feels Safe at Home: Yes Childhood Exposure to Second-Hand Smoke: Yes caffeine: Yes Dental Care, Regularly: No Physical Activity Frequency: Does not Exercise Seatbelt Use: always Sunscreen Use: No Assistive Devices: Cane and Walker Allergies Allergies Allergy/AdvReac Type Severity Reaction Status Date / Time Iodinated Contrast Media Allergy Unknown UNKNOWN Verified 08/29/23 10:28 REACTION iodine Allergy Unknown TOPICAL Verified 08/29/23 10:28 REDNESS AND EDEMA Home Meds Home Medications Medication Instructions Recorded Confirmed brinzolamide 1 %-brimonidine 0.2 % 1 drp ophthalmic (eye) BID 07/08/18 08/29/23 eye drops,suspension (Simbrinza) multivitamin 1 tab PO QAM 07/08/18 08/29/23 cyanocobalamin (vitamin B-12) 2,500 mcg PO DAILY 12/08/18 08/29/23 2,500 mcg tablet levothyroxine 200 mcg tablet See Rx Instructions .Route .COMPLEX 08/03/23 08/29/23 levothyroxine 50 mcg tablet See Rx Instructions .Route .COMPLEX 08/03/23 08/29/23 insulin glargine 100 unit/mL 25 unit subcut DAILY 08/27/23 08/29/23 subcutaneous solution Previous Rx's Medication Instructions Recorded blood-glucose sensor ([employer] G6 #3 ea 10/09/21 Sensor device) calcitriol 0.5 mcg capsule 0.5 mcg PO DAILY #90 caps 07/09/22 escitalopram oxalate 20 mg tablet 20 mg PO DAILY #90 tabs 07/25/22 omeprazole 40 mg capsule,delayed 40 mg PO DAILY #30 caps 11/09/22 release atorvastatin 80 mg tablet 80 mg PO QPM #90 tabs 12/27/22 BD Ultra-Fine Verito Pen Needle 32 #500 ea 07/29/23 gauge x 5/32" (pen needle, diabetic) acetaminophen 500 mg tablet 1,000 mg (2 x 500 mg) PO Q8H #30 08/09/23 (Tylenol Extra Strength) tabs insulin aspart U-100 100 unit/mL 1 unit (0.01 mL) SC ACHS #10 mL 08/09/23 subcutaneous solution (Novolog U-100 Insulin aspart) oxycodone 5 mg tablet 5 mg PO Q8 PRN pain #10 tabs 08/09/23 tramadol 50 mg tablet 50 mg PO BID #14 tabs 08/09/23 Results & Data (ED) Vital Signs Vital Signs - 24 hr 08/30/23 12:14 08/30/23 12:29 Temperature 36.9 C Temperature Source Oral Pulse Rate 110 H 111 H Respiratory Rate 32 H Respiratory Pattern Tachypnea Blood Pressure 122/47 L Blood Pressure Mean 72 Blood Pressure Position Lying Pulse Oximetry 96 Oxygen Delivery Method Room Air Sepsis Recent Fever Within 48 Hours No Sepsis New/Unexplained Change in Mental Status No Sepsis Action Taken by Nursing Physician Notified Laboratory Data 08/30/23 12:29 08/30/23 12:29 Lab Results 08/30/23 08/30/23 08/30/23 Range/Units 12:08 12:29 12:32 WBC 16.98 H (4.8-10.8) K/ul RBC 3.57 L (4.70-6.10) M/uL Hgb 10.9 L (14.0-18.0) g/dl POC Hgb 12.2 L (14.0-18.0) g/dl Hct 37.6 L (42.0-52.0) % POC Hct 36 L (42-52) % MCV 105.3 H (80.0-100.0) fL MCH 30.5 (25.0-34.0) pg MCHC 29.0 L (32.0-36.0) g/dL RDW Std Deviation 53.3 H (36.4-46.3) fL RDW Coeff of Roland 13.7 (11.5-14.5) % Plt Count 380 (130-400) K/uL MPV 10.7 (9.4-12.4) fL Immature Gran % (Auto) 1.2 % Neut % (Auto) 79.1 % Lymph % (Auto) 11.0 % [place] % (Auto) 8.1 % Eos % (Auto) 0.2 % Baso % (Auto) 0.4 % Neut # (Auto) 13.42 H (1.40-6.50) K/uL Lymph # (Auto) 1.87 (1.20-3.40) K/uL [place] # (Auto) 1.38 H (0.11-0.59) K/uL Eos # (Auto) 0.03 (0.00-0.50) K/uL Baso # (Auto) 0.07 (0.00-0.20) K/uL Immature Gran # (Auto) 0.21 H (0.01-0.20) K/uL VBG pH Cancelled VBG pCO2 Cancelled VBG pO2 Cancelled VBG HCO3 Cancelled VBG O2 Saturation Cancelled VBG Base Excess Cancelled Barometric Pressure Cancelled POC Sodium 124 L (135-144) mmol/L Sodium 126 L (136-145) mmol/L POC Potassium 7.3 H* (3.3-5.0) mmol/L Potassium 7.4 H* (3.5-5.1) mmol/L POC Chloride 98 L (101-112) mmol/L Chloride 88 L (98-107) mmol/L Carbon Dioxide 4 L* (21-32) mmol/L POC Total CO2 6 L* (24-31) mmol/L Anion Gap 34 H (3-11) POC Anion Gap 28.0 H (16-25) mmol/L POC BUN 27 H (7-18) mg/dl BUN 31 H (6-23) mg/dl Creatinine 2.07 H (0.6-1.4) mg/dl POC Creatinine 2.0 H (0.6-1.3) mg/dl Est Cr Clr Drug Dosing 33.7 ml/min Est GFR ( Amer) 35.3 ml/min Est GFR (Non-Af Amer) 30.4 ml/min BUN/Creatinine Ratio 15.0 (10-20) Glucose 942 H* (70-99(Fasting)) mg/dl POC Glucose > 600 H* (70-99) mg/dl POC Glucose (other) > 700 H* (70-99) mg/dl Calcium 8.8 (8.6-10.3) mg/dl POC Ioniz Calcium Guillermo 1.17 (1.12-1.32) mmol/l Phosphorus 10.1 H (2.5-4.9) mg/dl Magnesium 2.5 H (1.7-2.4) mg/dl Total Bilirubin 0.4 (0.2-1.0) mg/dl AST 107 H (13-39) U/L ALT 56 H (7-52) U/L Alkaline Phosphatase 151 H (34-104) U/L Troponin I High Sens 100.3 H* (0-20) pg/ml Total Protein 7.0 (6.0-8.3) gm/dl Albumin 4.1 (3.4-5.0) gm/dl Globulin 2.9 (2.5-4.0) gm/dl Albumin/Globulin Ratio 1.4 (0.9-2) Procalcitonin 0.37 (0-0.5) ng/ml TSH 5.408 H (0.300-4.500) uIu/ml Free T4 1.13 (0.61-1.60) ng/dl SARS-CoV-2, RNA, NAAT (NEGATIVE) 08/30/23 08/30/23 08/30/23 Range/Units 13:08 13:53 Unknown WBC (4.8-10.8) K/ul RBC (4.70-6.10) M/uL Hgb (14.0-18.0) g/dl POC Hgb (14.0-18.0) g/dl Hct (42.0-52.0) % POC Hct (42-52) % MCV (80.0-100.0) fL MCH (25.0-34.0) pg MCHC (32.0-36.0) g/dL RDW Std Deviation (36.4-46.3) fL RDW Coeff of Roland (11.5-14.5) % Plt Count (130-400) K/uL MPV (9.4-12.4) fL Immature Gran % (Auto) % Neut % (Auto) % Lymph % (Auto) % [place] % (Auto) % Eos % (Auto) % Baso % (Auto) % Neut # (Auto) (1.40-6.50) K/uL Lymph # (Auto) (1.20-3.40) K/uL [place] # (Auto) (0.11-0.59) K/uL Eos # (Auto) (0.00-0.50) K/uL Baso # (Auto) (0.00-0.20) K/uL Immature Gran # (Auto) (0.01-0.20) K/uL VBG pH < 7.00 L VBG pCO2 19 L VBG pO2 56 VBG HCO3 TNP VBG O2 Saturation 77.9 VBG Base Excess TNP Barometric Pressure POC Sodium (135-144) mmol/L Sodium (136-145) mmol/L POC Potassium (3.3-5.0) mmol/L Potassium (3.5-5.1) mmol/L POC Chloride (101-112) mmol/L Chloride (98-107) mmol/L Carbon Dioxide (21-32) mmol/L POC Total CO2 (24-31) mmol/L Anion Gap (3-11) POC Anion Gap (16-25) mmol/L POC BUN (7-18) mg/dl BUN (6-23) mg/dl Creatinine (0.6-1.4) mg/dl POC Creatinine (0.6-1.3) mg/dl Est Cr Clr Drug Dosing ml/min Est GFR ( Amer) ml/min Est GFR (Non-Af Amer) ml/min BUN/Creatinine Ratio (10-20) Glucose (70-99(Fasting)) mg/dl POC Glucose > 600 H* (70-99) mg/dl POC Glucose (other) (70-99) mg/dl Calcium (8.6-10.3) mg/dl POC Ioniz Calcium Guillermo (1.12-1.32) mmol/l Phosphorus (2.5-4.9) mg/dl Magnesium (1.7-2.4) mg/dl Total Bilirubin (0.2-1.0) mg/dl AST (13-39) U/L ALT (7-52) U/L Alkaline Phosphatase (34-104) U/L Troponin I High Sens (0-20) pg/ml Total Protein (6.0-8.3) gm/dl Albumin (3.4-5.0) gm/dl Globulin (2.5-4.0) gm/dl Albumin/Globulin Ratio (0.9-2) Procalcitonin (0-0.5) ng/ml TSH (0.300-4.500) uIu/ml Free T4 (0.61-1.60) ng/dl SARS-CoV-2, RNA, NAAT NEGATIVE (NEGATIVE) Administered Medications Insulin Human Regular 250 (units/ Sodium Chloride) 250 mls @ 9.4 mls/hr IV .Q24H ALEX; Protocol Stop: 09/29/23 12:44 Last Admin: 08/30/23 12:56 Dose: 9.4 units/hr, 9.4 mls/hr Documented By: MICK Co-signed By: JLT Discontinued Medications Sodium Chloride (Nss) 1,000 mls @ 999 mls/hr IV .Q1H1M ALEX Stop: 08/30/23 13:30 Last Infusion: 08/30/23 13:50 Dose: Infused Documented By: Admin: 08/30/23 12:30 Dose: 999 mls/hr Documented By: MICK Sodium Chloride (Nss) 1,000 mls @ 999 mls/hr IV .Q1H1M ONE Stop: 08/30/23 13:35 Last Infusion: 08/30/23 13:50 Dose: Infused Documented By: Admin: 08/30/23 12:48 Dose: 999 mls/hr Documented By: MICK Calcium Gluconate () 1,000 mg in 60 mls @ 240 mls/hr IV Q15M ALEX Stop: 08/30/23 13:14 Last Infusion: 08/30/23 13:17 Dose: Infused Documented By: Admin: 08/30/23 13:02 Dose: 240 mls/hr Documented By: Infusion: 08/30/23 13:02 Dose: Infused Documented By: Admin: 08/30/23 12:47 Dose: 240 mls/hr Documented By: MICK Insulin Human Regular (Novolin-R Bolus From Bag) 9 units IV ONE ONE Stop: 08/30/23 12:46 Last Admin: 08/30/23 12:56 Dose: 9 units Documented By: MICK Co-signed By: CORINNE Miscellaneous (Stat Iv Infusion Titration Per Protocol) 1 each N/A NOW STA Stop: 08/30/23 12:36 Last Admin: 08/30/23 12:54 Dose: 1 each Documented By: MICK Sodium Bicarbonate (Sodium Bicarb 8.4% Inj 50 Meq/50 Ml Syr) 50 meq IV NOW STA Stop: 08/30/23 12:36 Last Admin: 08/30/23 12:48 Dose: 50 meq Documented By: GA Imaging Data Radiologist's Impression: Chest X-Ray 08/30/23 12:25 XR chest 1V portable CLINICAL HISTORY: weakness COMPARISON STUDY: Chest radiograph and chest CT August 03, 2023. FINDINGS: Lung volumes are normal. Lungs are clear. There is no pneumothorax or pleural effusion. Cardiac size is normal. Mediastinal contours are normal. There is no evidence for pulmonary edema. Multiple subacute and chronic right-sided rib fractures are noted. There are old left-sided rib fractures. IMPRESSION: No acute cardiopulmonary findings. ACT 112: Negative or not required by law. Electronically signed by: Ang Park M.D. 08/30/2023 1:[address] 08/30/23 12:25 CT OF THE HEAD WITHOUT CONTRAST CLINICAL HISTORY: weak, confused COMPARISON STUDY: MRI of the brain February 28, 2012. Head CT August 03, 2023. TECHNIQUE: Helical axial images of the head were obtained without IV contrast. Automated exposure control was utilized for the study. A dose lowering technique was utilized adhering to the principles of ALARA. FINDINGS: No acute intracranial hemorrhage, midline shift or mass effect is present. White matter hypodensities are unchanged and favor small vessel disease. The ventricular system is unremarkable. The basal cisterns are patent. No extra-axial collections are present. There are no findings to suggest acute dural sinus thrombosis or acute territorial infarct. No significant calvarial abnormalities are present. Visualized portions of the sinuses and mastoid air cells are clear. IMPRESSION: No acute intracranial findings. ACT 112: Negative or not required by law. Electronically signed by: Ang Park M.D. 08/30/2023 1:58 PM Abdomen/Pelvis CT 08/30/23 12:38 CT OF THE ABDOMEN AND PELVIS WITHOUT CONTRAST CLINICAL HISTORY: Acute kidney injury, weak, confusion. COMPARISON STUDY: CT of the abdomen and pelvis August 03, 2023. TECHNIQUE: Axial images of the abdomen and pelvis were obtained without IV contrast. Images were reviewed in the axial, sagittal, and coronal planes. Automated exposure control was utilized for the study. A dose lowering technique was utilized adhering to the principles of ALARA. FINDINGS: Multiple healing right-sided rib fractures are incidentally noted. No pneumatosis, free air or portal venous gas is present. There is a 3 mm left renal calculus. No ureteral calculi are present and there is no hydronephrosis. Moderate bladder wall thickening is present. Evaluation of the remainder of the abdomen and pelvis is suboptimal on this unenhanced exam. Liver, spleen, adrenal glands and pancreas are unremarkable. There is no biliary or pancreatic ductal dilatation. Mesenteric stranding is of doubtful significance. There is no evidence for a bowel obstruction. The appendix is normal. No fluid collections are present. There is no ascites. No lymphadenopathy. No acute fractures are identified. IMPRESSION: 1. 3 mm left renal calculus. No ureteral calculi. No hydronephrosis. 2. No bowel obstruction. 3. Bladder wall thickening. This is likely chronic although could be correlated with urinalysis. ACT 112: Negative or not required by law. Electronically signed by: Ang Park M.D. 08/30/2023 2:04 PM Discharge Plan Visit Data Chief Complaint: Hyperglycemia Stated Complaint: confusion ED Provider: Geraldo Heranndez Discharge Problem: DKA (diabetic ketoacidosis), ROHIT (acute kidney injury), Acute hyperkalemia, Elevated troponin, Acute confusion Patient Disposition: Being Evaluated by Hospitalist Forms Stand Alone Forms: [facility] Prescriptions Prescriptions: No Action calcitriol 0.5 mcg capsule 0.5 mcg PO DAILY Qty: 90 1RF escitalopram oxalate 20 mg tablet 20 mg PO DAILY Qty: 90 3RF atorvastatin 80 mg tablet 80 mg PO QPM Qty: 90 3RF Rx Instructions: for cholesterol (DME) pen needle, diabetic [BD Ultra-Fine Verito Pen Needle] 32 gauge x 5/32" needle See Rx Instructions .ROUTE .MEDSUPPLY Qty: 500 3RF Rx Instructions: Use 5 daily to inject insulin cyanocobalamin (vitamin B-12) 2,500 mcg tablet 2,500 mcg PO DAILY (DME) Dexcom G6 Sensor Device See Rx Instructions .Route Qty: 3 0RF Rx Instructions: As directed omeprazole 40 mg capsule,delayed release(DR/EC) 40 mg PO DAILY Qty: 30 2RF insulin glargine 100 unit/mL solution 25 unit subcut DAILY multivitamin Tablet 1 tab PO QAM Simbrinza 1-0.2 % Drops,Suspension 1 drp OPHTHALMIC (EYE) BID levothyroxine 50 mcg tablet See Rx Instructions .ROUTE .COMPLEX Rx Instructions: Take 200mcg w/ 50mcg to equal 250mcg once every morning levothyroxine 200 mcg tablet See Rx Instructions .ROUTE .COMPLEX Rx Instructions: Take 200mcg w/ 50mcg to equal 250mcg once every morning acetaminophen [Tylenol Extra Strength] 500 mg Tablet 1,000 mg PO Q8H Qty: 30 0RF tramadol 50 mg Tablet 50 mg PO BID Qty: 14 0RF insulin aspart U-100 [Novolog U-100 Insulin aspart] 100 unit/mL Solution 1 unit SC ACHS Qty: 10 0RF Rx Instructions: -Goal BSG Range: Low 110 mg/dL, High 140 mg/dL --Correction Factor: 30 mg/dL/unit --Carbohydrate ratio = 5 g/unit oxycodone 5 mg Tablet 5 mg PO Q8 PRN (Reason: pain) Qty: 10 0RF Referrals Referrals: Paulina Johns DO [Physician] -
[2023-08-30] MEDS: SODIUM CHLORIDE 0.9% 1,000 ML IV SCH (12:30)
[2023-08-30] MEDS ORDERED: PHARMACY GLYCEMIC MGMT CONSULT PRN (12:35)
[2023-08-30] MEDS ORDERED: GLUCAGON FOR INJ 1 MG VIAL IM PRN (12:45)
[2023-08-30] MEDS ORDERED: GLUCOSE 10 TAB/TUBE PO PRN (12:45)
[2023-08-30] MEDS ORDERED: GLUCOSE 40% GEL 15 GM TUBE PO PRN (12:45)
[2023-08-30] MEDS ORDERED: DEXTROSE 50% 50 ML SYRINGE IV PRN (12:45)
[2023-08-30 12:46] LABS: iSTAT Blood Urea Nitrogen 27 mg/dl (7-18); iSTAT Carbon Dioxide 6 mmol/L (24-31); iSTAT Chloride 98 mmol/L (101-112); iSTAT Glucose > 700 mg/dl (70-99); iSTAT Hematocrit 36 % (42-52); iSTAT Hemoglobin 12.2 g/dl (14.0-18.0); iSTAT Ionized Calcium 1.17 mmol/l (1.12-1.32); iSTAT Potassium 7.3 mmol/L (3.3-5.0); iSTAT Sodium 124 mmol/L (135-144)
[2023-08-30] MEDS: CALCIUM GLUCONATE 1,000 MG/60 ML BAG IV SCH (12:47)
[2023-08-30] MEDS: SODIUM BICARB 8.4% INJ 50 MEQ/50 ML SYR IV STA ×2 (12:48→16:27)
[2023-08-30] MEDS: SODIUM CHLORIDE 0.9% 1,000 ML IV ONE (12:48)
[2023-08-30] MEDS: STAT IV Infusion **Titration per Protocol STA (12:54)
[2023-08-30] MEDS: INSULIN REGULAR 250 UNITS in SODIUM CHLORIDE 0.9% 247.5 ML IV SCH (12:56)
[2023-08-30] MEDS: NovoLIN-R BOLUS FROM BAG IV ONE (12:56)
[2023-08-30 13:02] LABS: Basophils # (auto) 0.07 K/uL (0.00-0.20); Basophils % (auto) 0.4 %; Eosinophils # (auto) 0.03 K/uL (0.00-0.50); Eosinophils % (auto) 0.2 %; Hematocrit (blood only) 37.6 % (42.0-52.0); Hemoglobin 10.9 g/dl (14.0-18.0); Immature Granulocytes # (auto) 0.21 K/uL (0.01-0.20); Immature Granulocytes % (auto) 1.2 %; Lymphocytes # (auto) 1.87 K/uL (1.20-3.40); Mean Corpuscular Hemoglobin 30.5 pg (25.0-34.0); Mean Corpuscular Volume 105.3 fL (80.0-100.0); Mean Platelet Volume 10.7 fL (9.4-12.4); Monocytes # (auto) 1.38 K/uL (0.11-0.59); Monocytes % (auto) 8.1 %; Neutrophils # (auto) 13.42 K/uL (1.40-6.50); Neutrophils % (auto) 79.1 %; Platelet Count 380 K/uL (130-400); RDW Coefficient of Variation 13.7 % (11.5-14.5); RDW Standard Deviation 53.3 fL (36.4-46.3); Red Blood Count 3.57 M/uL (4.70-6.10); White Blood Count 16.98 K/ul (4.8-10.8)
--- NOTE | 2023-08-30 13:29 | XRay Report ---
XR chest 1V portable CLINICAL HISTORY: weakness COMPARISON STUDY: Chest radiograph and chest CT August 03, 2023. FINDINGS: Lung volumes are normal. Lungs are clear. There is no pneumothorax or pleural effusion. Car diac size is normal. Mediastinal contours are normal. There is no evidence for pulmonary edema. Multi ple subacute and chronic right-sided rib fractures are noted. There are old left-sided rib fractures. IMPRESSION: No acute cardiopulmonary findings. ACT 112: Negative or not required by law. Electronically signed by: Ang Park M.D. 08/30/2023 1:27 PM
[2023-08-30 13:33] LABS: Oxygen Saturation VBG 77.9 %; PCO2 VBG 19 mmHg (38-50); PO2 VBG 56 mmHg; pH VBG < 7.00 (7.36-7.41)
[2023-08-30 13:51] LABS: Albumin Globulin Ratio 1.4 (0.9-2); Albumin Level 4.1 gm/dl (3.4-5.0); Bilirubin,Total 0.4 mg/dl (0.2-1.0); Calcium 8.8 mg/dl (8.6-10.3); Creatinine Clr Calc Pharmacy 33.7 ml/min; Est GFR (African American) 35.3 ml/min; Est GFR (Non-African American) 30.4 ml/min; Globulin 2.9 gm/dl (2.5-4.0); Magnesium 2.5 mg/dl (1.7-2.4); Phosphorus 10.1 mg/dl (2.5-4.9); Potassium 7.4 mmol/L (3.5-5.1); Thyroid Stimulating Hormone 5.408 uIu/ml (0.300-4.500); Troponin I High Sensitivity 100.3 pg/ml (0-20)
--- NOTE | 2023-08-30 13:59 | CT Scan Report ---
CT OF THE HEAD WITHOUT CONTRAST CLINICAL HISTORY: weak, confused COMPARISON STUDY: MRI of the brain February 28, 2012. Head CT August 03, 2023. TECHNIQUE: Helical axial images of the head were obtained without IV contrast. Automated exposure con trol was utilized for the study. A dose lowering technique was utilized adhering to the principles o f ALARA. FINDINGS: No acute intracranial hemorrhage, midline shift or mass effect is present. White matter hyp odensities are unchanged and favor small vessel disease. The ventricular system is unremarkable. The basal cisterns are patent. No extra-axial collections are present. There are no findings to suggest a cute dural sinus thrombosis or acute territorial infarct. No significant calvarial abnormalities are present. Visualized portions of the sinuses and mastoid air cells are clear. IMPRESSION: No acute intracranial findings. ACT 112: Negative or not required by law. Electronically signed by: Ang Park M.D. 08/30/2023 1:58 PM
--- NOTE | 2023-08-30 14:06 | CT Scan Report ---
CT OF THE ABDOMEN AND PELVIS WITHOUT CONTRAST CLINICAL HISTORY: Acute kidney injury, weak, confusion. COMPARISON STUDY: CT of the abdomen and pelvis August 03, 2023. TECHNIQUE: Axial images of the abdomen and pelvis were obtained without IV contrast. Images were revi ewed in the axial, sagittal, and coronal planes. Automated exposure control was utilized for the juany dy. A dose lowering technique was utilized adhering to the principles of ALARA. FINDINGS: Multiple healing right-sided rib fractures are incidentally noted. No pneumatosis, free air or portal venous gas is present. There is a 3 mm left renal calculus. No ureteral calculi are presen t and there is no hydronephrosis. Moderate bladder wall thickening is present. Evaluation of the adriana abbie of the abdomen and pelvis is suboptimal on this unenhanced exam. Liver, spleen, adrenal glands and pancreas are unremarkable. There is no biliary or pancreatic ductal dilatation. Mesenteric strand ing is of doubtful significance. There is no evidence for a bowel obstruction. The appendix is normal . No fluid collections are present. There is no ascites. No lymphadenopathy. No acute fractures are i dentified. IMPRESSION: 1. 3 mm left renal calculus. No ureteral calculi. No hydronephrosis. 2. No bowel obstruction. 3. Bladder wall thickening. This is likely chronic although could be correlated with urinalysis. ACT 112: Negative or not required by law. Electronically signed by: Ang Park M.D. 08/30/2023 2:04 PM
--- NOTE | 2023-08-30 14:26 | History & Physical Report ---
Date of Service August 30, 2023 Assessment & Plan (1) DKA (diabetic ketoacidosis): Plan: Life-threatening diabetic ketoacidosis with pH < 7.0, bicarb 4, anion gap 34 - admit to ICU Secondary to not taking insulin. Low suspicion of infective cause with procalcitonin negative, UA pending, however in setting of recent micrococcus species bacteremia will get repeat blood cultures and empirically treat with one dose Zosyn, ongoing antibiotics UA and deferred to ICU team NSS 1L bolus x2, now receiving Plasma-lyte 1L bolus, very dry on exam, cherry catheter to be placed for accurate I&Os in ROHIT - defer ongoing IV fluids to ICU team Continue insulin IV drip per DKA protocol BMP/Mg/PO q4h (2) Atrial fibrillation with RVR: Plan: New onset PTT, INR added stat, will defer IV heparin to ICU team once more stable from TTE - no urgency for this Appreopriate rate for current illness, no need for AV elder blocking agents on admission (3) SIRS (systemic inflammatory response syndrome): Plan: No source to diagnosis sepsis on admission however UA not yet collected and recent micrococcus bacteremia concerning (treat with Unasyn -> Augmentin last admission) Blood cultures taken Empirically treat with IV Zosyn one dose, ongoing antibiotics deferred to ICU team (4) Acute hyperkalemia: Plan: Secondary to lack of insulin, s/p calcium gluconate 1g IV x2 in the ER, now on insulin drip should continue to improve, repeat labs stat pending then q4h (5) Metabolic acidosis, increased anion gap: Plan: Secondary to ketosis. pH < 7.0 therefore sodium bicarb 50 meq IV given. Repeat pending to determine need for repeat dosing if remains < 7.0, otherwise should improve with insulin (6) ROHIT (acute kidney injury): Plan: Insert cherry catheter - monitor output closely for worsening renal failure UA ordered Pre-renal in setting of severe dehydration - IV hydration as above CT without obstructive cause (7) Elevated troponin: Plan: Low suspicion of ACS, suspected demand-ischemia, repeat pending TTE as above for a. fib RVR (8) Legally blind: (9) Hypothyroidism: Plan: TSH 5.408, improving since December 2022 Continue his usual levothyroxine (10) GERD (gastroesophageal reflux disease): Plan: Switch omeprazole for pantoprazole 40mg IV Plan VTE Prophylaxis - IV heparin Diet - NPO Disposition - admit to ICU Admission and Anticipated Discharge Date Admission Date: August 30, 2023 History of Present Illness Chief Complaint: Shortness of breath, dehydration Primary Care Provider: Belinda Moreira MD Kvng Yoder is a 73 year old male who presents to the ER with shortness of breath, dehydration, slurred speech. He was recently admitted with a fall and rib fractures in July and was discharged to [facility] for acute rehabilitation. Since discharge from [facility] on August 25 he has not taken any medications. He is unable to tell me why he hasn't taken any medication. His was expecting him to do all his medications. The patient tells me he was not trying to harm himself and wishes to be for full resuscitation. He is a type 1 diabetic. Allergies Allergy/AdvReac Type Severity Reaction Status Date / Time Iodinated Contrast Media Allergy Unknown UNKNOWN Verified 08/29/23 10:28 REACTION iodine Allergy Unknown TOPICAL Verified 08/29/23 10:28 REDNESS AND EDEMA Home Medications Medication Instructions Recorded Confirmed Type brinzolamide 1 %-brimonidine 0.2 % 1 drp ophthalmic (eye) BID 07/08/18 08/30/23 History eye drops,suspension (Simbrinza) multivitamin 1 tab PO QAM 07/08/18 08/30/23 History cyanocobalamin (vitamin B-12) 2,500 mcg PO DAILY 12/08/18 08/30/23 History 2,500 mcg tablet blood-glucose sensor (Dexcom G6 #3 ea 10/09/21 08/30/23 Rx Sensor device) calcitriol 0.5 mcg capsule 0.5 mcg PO DAILY #90 caps 07/09/22 08/30/23 Rx escitalopram oxalate 20 mg tablet 20 mg PO DAILY #90 tabs 07/25/22 08/30/23 Rx omeprazole 40 mg capsule,delayed 40 mg PO DAILY #30 caps 11/09/22 08/30/23 Rx release atorvastatin 80 mg tablet 80 mg PO QPM #90 tabs 12/27/22 08/30/23 Rx BD Ultra-Fine Verito Pen Needle 32 #500 ea 07/29/23 08/30/23 Rx gauge x 5/32" (pen needle, diabetic) levothyroxine 200 mcg tablet See Rx Instructions .Route .COMPLEX 08/03/23 08/30/23 History levothyroxine 50 mcg tablet See Rx Instructions .Route .COMPLEX 08/03/23 08/30/23 History acetaminophen 500 mg tablet 1,000 mg (2 x 500 mg) PO Q8H #30 08/09/23 08/30/23 Rx (Tylenol Extra Strength) tabs insulin aspart U-100 100 unit/mL 1 unit (0.01 mL) SC ACHS #10 mL 08/09/23 08/30/23 Rx subcutaneous solution (Novolog U-100 Insulin aspart) oxycodone 5 mg tablet 5 mg PO Q8 PRN pain #10 tabs 08/09/23 08/30/23 Rx tramadol 50 mg tablet 50 mg PO BID #14 tabs 08/09/23 08/30/23 Rx insulin glargine 100 unit/mL 25 unit subcut DAILY 08/27/23 08/30/23 History subcutaneous solution Past Med/Surg History Medical History H/O osteoporotic pathological fracture Osteoporosis Left leg cellulitis Edema, lower extremity Sensorineural hearing loss of both ears Chronic pain of right knee Osteoarthritis Glaucoma Temporomandibular joint disorder Surgical History H/O cystoscopy History of tonsillectomy H/O colonoscopy Hx of foot surgery H/O hand surgery History of tooth extraction History of cataract surgery Family History Father Pulmonary embolism Unknown Leukemia Diabetes Cancer Hypertension Mother No problems noted. Other No family history of adverse response to anesthesia No family history of bleeding disorder Denies family history of Ovarian cancer Prostate cancer Myocardial infarction Breast cancer Colorectal cancer Stroke Social History Smoking Status: Former smoker Tobacco Type: Cigarettes Age Started Using Tobacco: 16; Age Quit Using Tobacco: 21; packs per day: 1; Second Hand Exposure: No; Do You Dip or Chew Tobacco: No; Hx Alcohol Use: No Hx Substance Use: No Preferred Language: Haitian Communication Ability: Effective Communication Ability Comment: legally blind Visual Impairment: Severely Limited Hearing Ability: Normal Assessment Rn Required: No Beliefs That Will Affect Care: None marital status: Current Living Situation: Spouse Current Living Situation Comment: lives with in [place] 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 How many Children do You have: 2 How many Children do You have Comment: daughters Feels Safe at Home: Yes Childhood Exposure to Second-Hand Smoke: Yes caffeine: Yes Dental Care, Regularly: No Physical Activity Frequency: Does not Exercise Seatbelt Use: always Sunscreen Use: No Assistive Devices: None Review of Systems Review of Systems: All systems reviewed & are unremarkable except as noted in HPI & below Physical Exam Constitutional: well developed and + acute distress (respiratory); + not well nourished ENMT: Mouth: + dry oral mucous membranes (very) Respiratory: normal respiratory effort, + labored breathing, + uses accessory muscles and + tachypneic Auscultation: lungs clear to auscultation bilaterally Cardiovascular: Rate/Rhythm: + tachycardic and + irregularly irregular Heart Sounds: no murmur Extremities: no pedal edema Gastrointestinal (Abdomen): normal bowel sounds, soft, nontender, no hepatosplenomegaly Skin: + turgor decreased, + crusts and + dry s kin Neurologic: moves all extremities and awake; no focal motor deficits and not confused Psychiatric: A+Ox3, euthymic affect Genitourinary: no CVA tenderness Results & Data Results & Data Vital Signs (Past 12 Hours) Vital Signs Temp Pulse Resp BP Pulse Ox O2 Del Method 08/30/23 12:29 111 H 08/30/23 12:14 36.9 C 110 H 32 H 122/47 L 96 Room Air Laboratory Results Abnormal lab results 08/30/23 08/30/23 08/30/23 Range/Units 12:08 12:29 12:32 WBC 16.98 H (4.8-10.8) K/ul RBC 3.57 L (4.70-6.10) M/uL Hgb 10.9 L (14.0-18.0) g/dl POC Hgb 12.2 L (14.0-18.0) g/dl Hct 37.6 L (42.0-52.0) % POC Hct 36 L (42-52) % MCV 105.3 H (80.0-100.0) fL MCHC 29.0 L (32.0-36.0) g/dL RDW Std Deviation 53.3 H (36.4-46.3) fL Neut # (Auto) 13.42 H (1.40-6.50) K/uL [place] # (Auto) 1.38 H (0.11-0.59) K/uL Immature Gran # (Auto) 0.21 H (0.01-0.20) K/uL VBG pH (7.36-7.41) VBG pCO2 (38-50) mmHg POC Sodium 124 L (135-144) mmol/L Sodium 126 L (136-145) mmol/L POC Potassium 7.3 H* (3.3-5.0) mmol/L Potassium 7.4 H* (3.5-5.1) mmol/L POC Chloride 98 L (101-112) mmol/L Chloride 88 L (98-107) mmol/L Carbon Dioxide 4 L* (21-32) mmol/L POC Total CO2 6 L* (24-31) mmol/L Anion Gap 34 H (3-11) POC Anion Gap 28.0 H (16-25) mmol/L POC BUN 27 H (7-18) mg/dl BUN 31 H (6-23) mg/dl Creatinine 2.07 H (0.6-1.4) mg/dl POC Creatinine 2.0 H (0.6-1.3) mg/dl Glucose 942 H* (70-99(Fasting)) mg/dl POC Glucose > 600 H* (70-99) mg/dl POC Glucose (other) > 700 H* (70-99) mg/dl Phosphorus 10.1 H (2.5-4.9) mg/dl Magnesium 2.5 H (1.7-2.4) mg/dl AST 107 H (13-39) U/L ALT 56 H (7-52) U/L Alkaline Phosphatase 151 H (34-104) U/L Troponin I High Sens 100.3 H* (0-20) pg/ml TSH 5.408 H (0.300-4.500) uIu/ml 08/30/23 08/30/23 08/30/23 Range/Units 13:08 13:53 14:32 WBC (4.8-10.8) K/ul RBC (4.70-6.10) M/uL Hgb (14.0-18.0) g/dl POC Hgb (14.0-18.0) g/dl Hct (42.0-52.0) % POC Hct (42-52) % MCV (80.0-100.0) fL MCHC (32.0-36.0) g/dL RDW Std Deviation (36.4-46.3) fL Neut # (Auto) (1.40-6.50) K/uL [place] # (Auto) (0.11-0.59) K/uL Immature Gran # (Auto) (0.01-0.20) K/uL VBG pH < 7.00 L < 7.00 L (7.36-7.41) VBG pCO2 19 L 17 L (38-50) mmHg POC Sodium (135-144) mmol/L Sodium (136-145) mmol/L POC Potassium (3.3-5.0) mmol/L Potassium (3.5-5.1) mmol/L POC Chloride (101-112) mmol/L Chloride (98-107) mmol/L Carbon Dioxide (21-32) mmol/L POC Total CO2 (24-31) mmol/L Anion Gap (3-11) POC Anion Gap (16-25) mmol/L POC BUN (7-18) mg/dl BUN (6-23) mg/dl Creatinine (0.6-1.4) mg/dl POC Creatinine (0.6-1.3) mg/dl Glucose (70-99(Fasting)) mg/dl POC Glucose > 600 H* (70-99) mg/dl POC Glucose (other) (70-99) mg/dl Phosphorus (2.5-4.9) mg/dl Magnesium (1.7-2.4) mg/dl AST (13-39) U/L ALT (7-52) U/L Alkaline Phosphatase (34-104) U/L Troponin I High Sens (0-20) pg/ml TSH (0.300-4.500) uIu/ml Diagnostic Findings CT OF THE HEAD WITHOUT CONTRAST CLINICAL HISTORY: weak, confused COMPARISON STUDY: MRI of the brain February 28, 2012. Head CT August 03, 2023. TECHNIQUE: Helical axial images of the head were obtained without IV contrast. Automated exposure control was utilized for the study. A dose lowering technique was utilized adhering to the principles of ALARA. FINDINGS: No acute intracranial hemorrhage, midline shift or mass effect is present. White matter hypodensities are unchanged and favor small vessel disease. The ventricular system is unremarkable. The basal cisterns are patent. No extra-axial collections are present. There are no findings to suggest acute dural sinus thrombosis or acute territorial infarct. No significant calvarial abnormalities are present. Visualized portions of the sinuses and mastoid air cells are clear. IMPRESSION: No acute intracranial findings. XR chest 1V portable CLINICAL HISTORY: weakness COMPARISON STUDY: Chest radiograph and chest CT August 03, 2023. FINDINGS: Lung volumes are normal. Lungs are clear. There is no pneumothorax or pleural effusion. Cardiac size is normal. Mediastinal contours are normal. There is no evidence for pulmonary edema. Multiple subacute and chronic right-sided rib fractures are noted. There are old left-sided rib fractures. IMPRESSION: No acute cardiopulmonary findings. CT OF THE ABDOMEN AND PELVIS WITHOUT CONTRAST CLINICAL HISTORY: Acute kidney injury, weak, confusion. COMPARISON STUDY: CT of the abdomen and pelvis August 03, 2023. TECHNIQUE: Axial images of the abdomen and pelvis were obtained without IV contrast. Images were reviewed in the axial, sagittal, and coronal planes. Automated exposure control was utilized for the study. A dose lowering technique was utilized adhering to the principles of ALARA. FINDINGS: Multiple healing right-sided rib fractures are incidentally noted. No pneumatosis, free air or portal venous gas is present. There is a 3 mm left renal calculus. No ureteral calculi are present and there is no hydronephrosis. Moderate bladder wall thickening is present. Evaluation of the remainder of the abdomen and pelvis is suboptimal on this unenhanced exam. Liver, spleen, adrenal glands and pancreas are unremarkable. There is no biliary or pancreatic ductal dilatation. Mesenteric stranding is of doubtful significance. There is no evidence for a bowel obstruction. The appendix is normal. No fluid collections are present. There is no ascites. No lymphadenopathy. No acute fractures are identified. IMPRESSION: 1. 3 mm left renal calculus. No ureteral calculi. No hydronephrosis. 2. No bowel obstruction. 3. Bladder wall thickening. This is likely chronic although could be correlated with urinalysis. Medications Administered ER medications given: Normal saline 1 L bolus Normal saline 1 L bolus Calcium gluconate 1 g IV x 2 Saline bicarbonate 8.4% 50 mEq IV Insulin IV bolus 9 units and drip ECG Rate (beats per minute): 98 Rhythm: atrial fibrillation Findings: + ST depression (Inferior) Comparison ECG Date: from (July 14, 2023) Change: the following changes noted (atrial fibrillation replaced sinus rhythm) Code Status & VTE Plan Code Status Full VTE Prophylaxis Plan VTE Prophylaxis will be ordered: Yes Critical Care Time Critical Care Time: Yes Total Critical Care Time: 40 PG Care Time/CCT Total # of Minutes Spent Total Time Spent with Patient: Total time spent is greater than 50% in coordination of care (as documented) at patient's floor/unit and/or counseling patient: Critical Care Time: Yes Total Critical Care Time: 40 Coding Level of Care Code 03214 INT INP/OBS CARE 3/75MIN Diagnoses DKA (diabetic ketoacidosis) E11.10 Atrial fibrillation with RVR I48.91 SIRS (systemic inflammatory response syndrome) R65.10 Acute hyperkalemia E87.5 Metabolic acidosis, increased anion gap E87.29 ROHIT (acute kidney injury) N17.9 Elevated troponin R79.89 Legally blind H54.8 Acquired hypothyroidism E03.9 Hypothyroidism type: acquired GERD (gastroesophageal reflux disease) K21.9 Additional Codes Critical Care Time - Critical Care Time: Yes ([id number]) (9) Hypothyroidism Hypothyroidism type: acquired Qualified Code(s): E03.9 - Hypothyroidism, unspecified
[2023-08-30 14:30] LABS: T4 Free Thyroxine 1.13 ng/dl (0.61-1.60)
[2023-08-30 14:41] LABS: Oxygen Saturation VBG 72.5 %; PCO2 VBG 17 mmHg (38-50); PO2 VBG 47 mmHg; pH VBG < 7.00 (7.36-7.41)
[2023-08-30] MEDS: PLASMA-LYTE A 1,000 ML IV ONE (15:00)
[2023-08-30 15:11] LABS: Albumin Globulin Ratio 1.5 (0.9-2); Albumin Level 3.8 gm/dl (3.4-5.0); BUN Creatinine Ratio 15.6 (10-20); Bilirubin,Total 0.3 mg/dl (0.2-1.0); Calcium 8.5 mg/dl (8.6-10.3); Est GFR (African American) 35.7 ml/min; Est GFR (Non-African American) 30.8 ml/min; Globulin 2.6 gm/dl (2.5-4.0); Potassium 5.7 mmol/L (3.5-5.1); Total Protein 6.4 gm/dl (6.0-8.3); Troponin I High Sensitivity 110.2 pg/ml (0-20)
--- NOTE | 2023-08-30 15:31 | Critical Care Consultation ---
Date of Consultation August 30, 2023 Assessment & Plan (1) DKA (diabetic ketoacidosis): (2) Metabolic acidosis, increased anion gap: (3) Atrial fibrillation with RVR: (4) ROHIT (acute kidney injury): Plan Medically complex 73-year-old male with a past medical history of type 1 di abetes mellitus which is uncontrolled, ambulatory dysfunction, GERD, anemia of chronic disease and obesity who presents to the hospital with severe diabetic ketoacidosis and atrial fibrillation with rapid ventricular response. Neurologic: No issues at present. Possible mild cognitive impairment at baseline. CT head negative on admission. Pulmonary: Patient with Kussmaul respirations secondary to DKA. No significant pulmonary issues at this time otherwise. Chest x-ray clear. Patient does have a history of multiple subacute and chronic right-sided rib fractures. Cardiovascular: Atrial fibrillation with rapid ventricular response noted on EKG. Possible new onset related to DKA. Prior echo was generally unremarkable with a normal EF. Gastrointestinal: CT abdomen pelvis unremarkable aside for 3 mm left renal calculus and bladder wall thickening. Maintain n.p.o. status. Renal: ROHIT secondary to dehydration. 3 mm left renal calculus noted on CT abdomen pelvis. Continue crystalloid infusion. Patient with evidence of hyperkalemia which is improving with insulin infusion. Will follow labs every 4 hours. pH remains below 7. Will give additional sodium bicarb amp at this time. Infectious disease: History of Micrococcus bacteremia and prior foot ulcer on previous admission. Patient received Zosyn in the ER. Will start Rocephin empirically at this time. Will follow-up blood and urine cultures. Hematologic: Patient with anemia of chronic disease noted. Platelet counts unremarkable. Will start heparin infusion without bolus given atrial fibrillation noted on admission. Endocrine: DKA protocol as noted above. TSH mildly elevated to 5.0. Patient with known history of hypothyroidism. Continue home levothyroxine when more stable. Lines and tubes: PIV's and Brice catheter in place. Brice was placed in the ER for VTE prophylaxis: Heparin infusion CODE STATUS: Full Family at bedside: updated at bedside Disposition: ICU. Care coordinated with the hospitalist service, ER physician, ER nurse and ICU nurse. I have personally spent 48 minutes of critical care time in the direct management of this patient. This is a life/limb threatening event. This includes time spent evaluating patient, direct bedside care, chart review, placing orders, interpretation of diagnostic studies, discussion with consultants, patient, and family members, as well as other required patient management activities. This time is exclusive of all separately billable procedures, and teaching time and separate from and in addition to any other critical care service time. Thank you for allowing us to participate in the care of this patient. History of Present Illness Reason for Consultation: Severe DKA Attending Physician: Kiran Davis MD History of Present Illness 73-year-old male with a history of diastolic heart failure, hypothyroidism, hypertension, hyperlipidemia and diabetes mellitus type 1 presenting to the hospital due to elevated blood sugars and altered mental status. He was recently discharged from hospital 08/10/2023 due to diabetic ketoacidosis and foot ulceration. Patient notes that he has not received his insulin from the rehab for the past 3 days which she feels is the cause of his DKA at this time. He denies any shortness of breath, cough, fevers, chills, chest pain, abdominal pain, nausea or vomiting. He has received approximately 3 L of crystalloid infusion and is currently on an insulin infusion at this time. His labs are remarkable for ROHIT, hyperkalemia and leukocytosis. Allergies Allergy/AdvReac Type Severity Reaction Status Date / Time Iodinated Contrast Media Allergy Unknown UNKNOWN Verified 08/29/23 10:28 REACTION iodine Allergy Unknown TOPICAL Verified 08/29/23 10:28 REDNESS AND EDEMA Home Medications Medication Instructions Recorded Confirmed Type brinzolamide 1 %-brimonidine 0.2 % 1 drp ophthalmic (eye) BID 07/08/18 08/30/23 History eye drops,suspension (Simbrinza) multivitamin 1 tab PO QAM 07/08/18 08/30/23 History cyanocobalamin (vitamin B-12) 2,500 mcg PO DAILY 12/08/18 08/30/23 History 2,500 mcg tablet blood-glucose sensor (Dexcom G6 #3 ea 10/09/21 08/30/23 Rx Sensor device) calcitriol 0.5 mcg capsule 0.5 mcg PO DAILY #90 caps 07/09/22 08/30/23 Rx escitalopram oxalate 20 mg tablet 20 mg PO DAILY #90 tabs 07/25/22 08/30/23 Rx omeprazole 40 mg capsule,delayed 40 mg PO DAILY #30 caps 11/09/22 08/30/23 Rx release atorvastatin 80 mg tablet 80 mg PO QPM #90 tabs 12/27/22 08/30/23 Rx BD Ultra-Fine Verito Pen Needle 32 #500 ea 07/29/23 08/30/23 Rx gauge x 5/32" (pen needle, diabetic) levothyroxine 200 mcg tablet See Rx Instructions .Route .COMPLEX 08/03/23 08/30/23 History levothyroxine 50 mcg tablet See Rx Instructions .Route .COMPLEX 08/03/23 08/30/23 History acetaminophen 500 mg tablet 1,000 mg (2 x 500 mg) PO Q8H #30 08/09/23 08/30/23 Rx (Tylenol Extra Strength) tabs insulin aspart U-100 100 unit/mL 1 unit (0.01 mL) SC ACHS #10 mL 08/09/23 08/30/23 Rx subcutaneous solution (Novolog U-100 Insulin aspart) oxycodone 5 mg tablet 5 mg PO Q8 PRN pain #10 tabs 08/09/23 08/30/23 Rx tramadol 50 mg tablet 50 mg PO BID #14 tabs 08/09/23 08/30/23 Rx insulin glargine 100 unit/mL 25 unit subcut DAILY 08/27/23 08/30/23 History subcutaneous solution Patient History Medical History H/O osteoporotic pathological fracture Osteoporosis Left leg cellulitis Edema, lower extremity Sensorineural hearing loss of both ears Chronic pain of right knee Osteoarthritis Glaucoma Temporomandibular joint disorder Surgical History H/O cystoscopy History of tonsillectomy H/O colonoscopy Hx of foot surgery H/O hand surgery History of tooth extraction History of cataract surgery Family History Father Pulmonary embolism Unknown Leukemia Diabetes Cancer Hypertension Mother No problems noted. Other No family history of adverse response to anesthesia No family history of bleeding disorder Denies family history of Ovarian cancer Prostate cancer Myocardial infarction Breast cancer Colorectal cancer Stroke Social History Smoking Status: Never smoker Tobacco Type: Cigarettes Age Started Using Tobacco: 16; Age Quit Using Tobacco: 21; packs per day: 1; Second Hand Exposure: No; Do You Dip or Chew Tobacco: No; Hx Alcohol Use: No Hx Substance Use: No Preferred Language: Bermudian Communication Ability: Effective Communication Ability Comment: legally blind Visual Impairment: Severely Limited Hearing Ability: Normal Store Consultant Required: No Beliefs That Will Affect Care: None marital status: Current Living Situation: Spouse Current Living Situation Comment: lives with in [place] 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 Patient is in no apparent distress. Patient is well-developed. Eyes: Pupils are equal round and reactive to light. Conjunctivae are normal. Anicteric sclera. Ears nose, mouth and throat: Mallampati class 2. Normal posterior oropharynx. Uvula is midline. Neck: Trachea is midline. Visual inspection is normal. Respiratory: Tachypnea. Clear to auscultation otherwise. Cardiovascular: Irregularly irregular. No murmurs, rubs or gallops. Gastrointestinal: Normal bowel sounds, soft, nontender and nondistended. No hepatosplenomegaly noted. Musculoskeletal: No cyanosis. Patient is able to move all extremities. Strength is 5 out of 5 in the upper and lower extremities. Skin: No rashes, warm dry and intact. Neurologic: No obvious focal neurological deficits seen. Psychiatric: Alert and oriented x3 with a euthymic affect. Results & Data Results & Data Vital Signs (Past 12 Hours) Vital Signs Temp Pulse Resp BP Pulse Ox O2 Del Method 08/30/23 12:29 111 H 08/30/23 12:14 36.9 C 110 H 32 H 122/47 L 96 Room Air Coding Level of Care Code 76885 CRITICAL CARE 1ST 30-74M Diagnoses Diabetic ketoacidosis without coma associated with type 1 diabetes mellitus E10.10 Diabetes mellitus type: type 1 Diabetes mellitus complication detail: without coma Metabolic acidosis, increased anion gap E87.29 Atrial fibrillation with RVR I48.91 ROHIT (acute kidney injury) N17.9 (1) DKA (diabetic ketoacidosis) Diabetes mellitus type: type 1 Diabetes mellitus complication detail: without coma Qualified Code(s): E10.10 - Type 1 diabetes mellitus with ketoacidosis without coma
[2023-08-30] MEDS: PIPERACILLIN/TAZOBACTAM 4.5 GM/100 ML BAG IV ONE (16:08)
[2023-08-30] MEDS: PANTOprazole 40 MG in SYRINGE 0 ML IV SCH (16:22)
[2023-08-30] MEDS: cefTRIAXone SODIUM 2,000 MG in DEXTROSE 5 % MINI-B 50 ML IV SCH (16:23)
[2023-08-30] MEDS: PLASMA-LYTE A 1,000 ML IV SCH (16:27)
[2023-08-30] MEDS ORDERED: ICU Protocol for HYPERglycemia SCH (16:30)
[2023-08-30] MEDS ORDERED: Heparin IV Adult Wt-Based Low-Dose *NO* INITIAL Bolus Protocol IV SCH (16:45)
[2023-08-30 16:55] LABS: Basophils # (auto) 0.05 K/uL (0.00-0.20); Basophils % (auto) 0.3 %; Eosinophils # (auto) 0.01 K/uL (0.00-0.50); Eosinophils % (auto) 0.1 %; Hematocrit (blood only) 32.2 % (42.0-52.0); Hemoglobin 9.8 g/dl (14.0-18.0); Immature Granulocytes # (auto) 0.17 K/uL (0.01-0.20); Lymphocytes # (auto) 1.15 K/uL (1.20-3.40); Mean Corpuscular Hemoglobin 30.3 pg (25.0-34.0); Mean Corpuscular Hgb Conc 30.4 g/dL (32.0-36.0); Mean Corpuscular Volume 99.7 fL (80.0-100.0); Mean Platelet Volume 10.1 fL (9.4-12.4); Monocytes # (auto) 0.82 K/uL (0.11-0.59); Neutrophils # (auto) 14.32 K/uL (1.40-6.50); Neutrophils % (auto) 86.6 %; Platelet Count 288 K/uL (130-400); RDW Coefficient of Variation 13.5 % (11.5-14.5); Red Blood Count 3.23 M/uL (4.70-6.10); White Blood Count 16.52 K/ul (4.8-10.8)
[2023-08-30] MEDS ORDERED: PENDING D5 1/2NS+20mEq KCL IVF SCH (17:00)
[2023-08-30] MEDS ORDERED: PENDING 1/2NSS+20mEq KCL IVF SCH (17:00)
[2023-08-30 17:11] LABS: BUN Creatinine Ratio 15.8 (10-20); Calcium 8.1 mg/dl (8.6-10.3); Creatinine Clr Calc Pharmacy 34.7 ml/min; Est GFR (African American) 36.1 ml/min; Est GFR (Non-African American) 31.1 ml/min; Magnesium 2.3 mg/dl (1.7-2.4); Phosphorus 7.6 mg/dl (2.5-4.9); Potassium 4.9 mmol/L (3.5-5.1)
[2023-08-30] MEDS: INSULIN ASPART PER UNIT CHARGE SC SCH (17:35)
[2023-08-30] MEDS: Heparin IV Adult Wt-Based Low-Dose *NO* INITIAL Bolus Protocol IV STA (17:49)
[2023-08-30] MEDS: HEPARIN SODIUM/DEXTROSE 25,000 UNITS/500 ML BAG IV SCH (17:50)
[2023-08-30] MEDS: SODIUM CHLOR 0.45% + 20MEQ KCL 20 MEQ/1,000 ML BAG IV SCH (17:58)
[2023-08-30 18:00] LABS: ANTI-Xa, UFH(UnfractionatedHep < 0.10 IU/ml (0.3-0.7); Partial Thromboplastin Ratio 0.9; Partial Thromboplastin Time 26 Seconds (21-31); Prothrombin Time 10.6 Seconds (9.0-12.0)
[2023-08-30] MEDS: LACTATED RINGER'S 500 ML IV ONE (19:45)
[2023-08-30] MEDS: BENZOCAINE/TETRACAIN/BUTAM 50 APPLN/5 GM CAN EXT PRN (20:09)
[2023-08-30] MEDS: LORazepam 0.5 MG in SYRINGE 0.25 ML IV STA (20:36)
[2023-08-30 21:56] LABS: BUN Creatinine Ratio 14.2 (10-20); Calcium 7.9 mg/dl (8.6-10.3); Creatinine Clr Calc Pharmacy 31.1 ml/min; Est GFR (African American) 31.7 ml/min; Est GFR (Non-African American) 27.4 ml/min; Magnesium 1.9 mg/dl (1.7-2.4); Phosphorus 3.3 mg/dl (2.5-4.9)
[2023-08-31 00:17] LABS: ANTI-Xa, UFH(UnfractionatedHep 0.33 IU/ml (0.3-0.7)
[2023-08-31] MEDS: MAGNESIUM SULFATE / D5W 1 GM/100 ML BAG IV ONE (00:19)
[2023-08-31 01:18] LABS: Appearance Urine Turbid (Clear); Bilirubin Urine Negative (Negative); Blood Urine 3+ (Negative); Color Urine Yellow; Epithelial Cell Urine Auto >30 /lpf (0-5); Glucose Urine UA 1+ (Negative); Ketones Urine 2+ (Negative); Leukocyte Esterase Urine Trace (Negative); Nitrite Urine Negative (Negative); Protein Urine 2+ (Negative); Specific Gravity Urine 1.023 (1.000-1.030); Urobilinogen Urine Negative (Negative); WBC Urine Automated >30 /hpf (0-5)
[2023-08-31 01:18] LABS: BUN Creatinine Ratio 13.9 (10-20); Calcium 7.6 mg/dl (8.6-10.3); Creatinine Clr Calc Pharmacy 30.5 ml/min; Est GFR (African American) 30.9 ml/min; Est GFR (Non-African American) 26.6 ml/min; Magnesium 1.9 mg/dl (1.7-2.4); Phosphorus 2.1 mg/dl (2.5-4.9); Potassium 3.9 mmol/L (3.5-5.1)
[2023-08-31 01:34] LABS: Bacteria Urine Automated 1+ (Negative)
[2023-08-31] MEDS: D5W AND 1/2NSS + 20MEQ KCL 20 MEQ/1,000 ML BAG IV SCH (01:44)
[2023-08-31 04:29] LABS: BUN Creatinine Ratio 14.2 (10-20); Creatinine Clr Calc Pharmacy 30.2 ml/min; Est GFR (African American) 30.6 ml/min; Est GFR (Non-African American) 26.4 ml/min; Phosphorus 1.7 mg/dl (2.5-4.9); Potassium 3.7 mmol/L (3.5-5.1)
[2023-08-31 06:36] LABS: Basophils # (auto) 0.01 K/uL (0.00-0.20); Basophils % (auto) 0.1 %; Hematocrit (blood only) 27.1 % (42.0-52.0); Hemoglobin 9.1 g/dl (14.0-18.0); Immature Granulocytes # (auto) 0.06 K/uL (0.01-0.20); Immature Granulocytes % (auto) 0.7 %; Lymphocytes # (auto) 0.81 K/uL (1.20-3.40); Lymphocytes % (auto) 9.5 %; Mean Corpuscular Hemoglobin 29.9 pg (25.0-34.0); Mean Corpuscular Hgb Conc 33.6 g/dL (32.0-36.0); Mean Corpuscular Volume 89.1 fL (80.0-100.0); Mean Platelet Volume 10.4 fL (9.4-12.4); Monocytes # (auto) 0.83 K/uL (0.11-0.59); Monocytes % (auto) 9.7 %; Neutrophils # (auto) 6.82 K/uL (1.40-6.50); Platelet Count 204 K/uL (130-400); RDW Coefficient of Variation 14.1 % (11.5-14.5); RDW Standard Deviation 45.9 fL (36.4-46.3); Red Blood Count 3.04 M/uL (4.70-6.10); White Blood Count 8.53 K/ul (4.8-10.8)
[2023-08-31] MEDS ORDERED: STAT IV/IM STA (07:19)
[2023-08-31] MEDS ORDERED: SODIUM PHOSPHATE 3 MMOL/1 ML INFUSION IV STA (07:19)
--- NOTE | 2023-08-31 07:32 | Critical Care Progress Note ---
Date of Service August 31, 2023 Assessment & Plan (1) DKA (diabetic ketoacidosis): (2) Metabolic acidosis, increased anion gap: (3) Atrial fibrillation with RVR: (4) ROHIT (acute kidney injury): Plan Impression: Medically complex 73-year-old male with a past medical history of ty pe 1 diabetes mellitus which is uncontrolled, ambulatory dysfunction, GERD, anemia of chronic disease and obesity who presents to the hospital with severe diabetic ketoacidosis and atrial fibrillation with rapid ventricular response. 24-hour events: Patient was admitted to the ICU. He was treated with fluids electrolyte replacement and insulin. He is improved overnight. Recommendations Neurologic: Mildly encephalopathic. Unclear if baseline cognitive impairment exists. Continue to follow. Avoid sedating medications which may contribute to delirium. Maintain sleep-wake cycles is much as possible. No indication for additional evaluation or imaging at this point in time Pulmonary: Respiratory compensation due to severe acidosis much improved. On room air. Rib fractures of unclear timing but do not appear acute. Patient denies pain. No acute indication for intervention Cardiovascular: Patient presented with atrial fibrillation with rapid ventricular response. He is rate controlled currently and appears to be regular. Will check EKG. He is converted to sinus, discontinuation of anticoagulation may be appropriate. May still be volume down. Almost 5 L positive yesterday but volume deficit may be twice that much given his markedly elevated glucose. Will give an additional 2 L of crystalloid now and follow Gastrointestinal: No acute issues. Continue noncaloric clears until off insulin drip. PPI in place Renal: ROHIT secondary to volume depletion. Serum creatinine remains slightly elevated this morning. Replacing phosphate and calcium. Serum creatinine norm al 2 weeks prior to admission sodium doubt underlying kidney disease related to diabetes. Infectious disease: History of Micrococcus bacteremia and prior foot ulcer on previous admission. Cultures negative and white count down to normal. Leukocytosis likely secondary to stress response. Discontinue antibiotics and follow clinically. Hematologic: Patient with anemia of chronic disease noted. Platelet counts unremarkable. Stable. No indication for transfusion. Endocrine: Severe DKA. Continue insulin drip. Anion gap is improved significantly. If repeat labs this morning showed that the gap is closed we will transition to subcutaneous insulin and likely transition to the floor. DKA protocol as noted above. TSH mildly elevated to 5.0. Patient with known history of hypothyroidism. Continue home levothyroxine when more stable. Lines and tubes: PIV's and Brice catheter in place. Can likely discontinue Brice as mental status improves VTE prophylaxis: Heparin infusion CODE STATUS: Full Disposition: Anticipate the patient's labs will show improvement this morning and he can likely downgrade out of the intensive care unit. Critical care services will likely sign off and the patient can be managed by the hospitalist. Admission and Anticipated Discharge Date Admission Date: August 30, 2023 Subjective Patient seen and examined. MR becca. Discussed with off going employee communications manager and with bedside critical care nurse and on multidisciplinary rounds. The patient's breathing pattern has improved significantly. His metabolic derangements are improving. He remains mildly confused and encephalopathic but this is improved from yesterday. Has been hemodynamically stable. Review of Systems Review of Systems: Patient unreliable due to encephalopathy Physical Exam Constitutional: WD/WN, vitals as above Neck: trachea midline, no thyromegaly Respiratory: normal respiratory effort, lungs clear to auscultation Cardiovascular: RRR, no murmur, no edema Gastrointestinal (Abdomen): normal bowel sounds, soft, nontender, no hepatosplenomegaly Musculoskeletal: Extremities: extremities normal to inspection Skin: no rashes, warm and dry Neurologic: Nonfocal exam Lymphatic: no cervical lymphadenopathy Results & Data Results & Data Vital Signs (Past 12 Hours) Vital Signs Temp Pulse Pulse Resp BP BP Pulse Ox 08/31/23 07:00 37.8 C H 85 26 H 91 08/31/23 07:00 119/53 L 08/31/23 06:00 37.8 C H 84 33 H 95 08/31/23 06:00 114/53 L 08/31/23 06:00 37.8 C H 89 20 114/53 L 93 08/31/23 05:30 37.8 C H 85 20 93 08/31/23 05:00 115/52 L 08/31/23 05:00 37.8 C H 83 24 93 08/31/23 05:00 37.8 C H 85 18 115/52 L 94 08/31/23 04:30 37.9 C H 85 19 94 08/31/23 04:00 37.9 C H 85 24 97 08/31/23 04:00 117/55 L 08/31/23 04:00 37.9 C H 84 20 117/55 L 94 08/31/23 03:30 38.0 C H 85 20 95 08/31/23 03:00 38.0 C H 85 14 95 08/31/23 03:00 112/49 L 08/31/23 03:00 38 C H 85 20 112/49 L 95 08/31/23 02:30 38.0 C H 85 20 96 08/31/23 02:00 114/56 L 08/31/23 02:00 38.0 C H 84 25 H 98 08/31/23 02:00 38 C H 85 20 114/56 L 98 08/31/23 01:30 38.0 C H 86 21 98 08/31/23 01:00 122/56 L 08/31/23 01:00 38.0 C H 81 20 94 08/31/23 01:00 38 C H 86 20 118/56 L 94 08/31/23 00:30 38.0 C H 87 14 98 08/31/23 00:00 37.9 C H 89 17 99 08/31/23 00:00 38.0 C H 86 20 122/56 L 94 08/31/23 00:00 104 H 08/30/23 23:50 90 08/30/23 23:30 37.9 C H 90 22 99 08/30/23 23:00 118/56 L 08/30/23 23:00 37.8 C H 93 H 22 97 08/30/23 23:00 37.6 C H 87 20 121/58 L 100 08/30/23 22:30 37.7 C H 94 H 21 99 08/30/23 22:24 08/30/23 22:00 37.6 C H 96 H 25 H 99 08/30/23 22:00 119/57 L 99 08/30/23 22:00 37.6 C H 95 H 22 99 08/30/23 21:45 37.6 C H 96 H 20 119/57 L 94 08/30/23 21:30 37.5 C 99 H 26 H 83 L 08/30/23 21:00 117/54 L 08/30/23 21:00 37.3 C 103 H 25 H 96 08/30/23 20:30 37.1 C 105 H 35 H 93 08/30/23 20:00 123/51 L 08/30/23 20:00 37.1 C 108 H 17 98 08/30/23 20:00 37.6 C H 91 H 22 99 08/30/23 19:30 36.9 C 108 H 31 H 99 O2 Del Method O2 Flow Rate 08/31/23 07:00 08/31/23 07:00 08/31/23 06:00 08/31/23 06:00 08/31/23 06:00 Nasal Cannula 2 08/31/23 05:30 Nasal Cannula 2 08/31/23 05:00 Room Air 08/31/23 05:00 08/31/23 05:00 Room Air 08/31/23 04:30 08/31/23 04:00 Room Air 08/31/23 04:00 08/31/23 04:00 Room Air 08/31/23 03:30 Room Air 08/31/23 03:00 08/31/23 03:00 Room Air 08/31/23 03:00 Room Air 08/31/23 02:30 Room Air 08/31/23 02:00 08/31/23 02:00 08/31/23 02:00 Room Air 08/31/23 01:30 Room Air 08/31/23 01:00 08/31/23 01:00 Room Air 08/31/23 01:00 Room Air 08/31/23 00:30 08/31/23 00:00 Room Air 08/31/23 00:00 Room Air 08/31/23 00:00 08/30/23 23:50 08/30/23 23:30 08/30/23 23:00 08/30/23 23:00 08/30/23 23:00 Room Air 08/30/23 22:30 Room Air 08/30/23 22:24 Nasal Cannula 2 08/30/23 22:00 08/30/23 22:00 08/30/23 22:00 Nasal Cannula 2 08/30/23 21:45 Nasal Cannula 2 08/30/23 21:30 Nasal Cannula 2 08/30/23 21:00 08/30/23 21:00 08/30/23 20:30 08/30/23 20:00 08/30/23 20:00 08/30/23 20:00 Room Air 08/30/23 19:30 Critical Care Results & Data Vital Signs (Past 12 Hours) Vital Signs Temp Pulse Pulse Resp BP BP Pulse Ox 04/06/24 07:00 37.8 C H 85 26 H 91 08/31/23 07:00 119/53 L 08/31/23 06:00 37.8 C H 84 33 H 95 08/31/23 06:00 114/53 L 08/31/23 06:00 37.8 C H 89 20 114/53 L 93 08/31/23 05:30 37.8 C H 85 20 93 08/31/23 05:00 115/52 L 08/31/23 05:00 37.8 C H 83 24 93 08/31/23 05:00 37.8 C H 85 18 115/52 L 94 08/31/23 04:30 37.9 C H 85 19 94 08/31/23 04:00 37.9 C H 85 24 97 08/31/23 04:00 117/55 L 08/31/23 04:00 37.9 C H 84 20 117/55 L 94 08/31/23 03:30 38.0 C H 85 20 95 08/31/23 03:00 38.0 C H 85 14 95 08/31/23 03:00 112/49 L 08/31/23 03:00 38 C H 85 20 112/49 L 95 08/31/23 02:30 38.0 C H 85 20 96 08/31/23 02:00 114/56 L 08/31/23 02:00 38.0 C H 84 25 H 98 08/31/23 02:00 38 C H 85 20 114/56 L 98 08/31/23 01:30 38.0 C H 86 21 98 08/31/23 01:00 122/56 L 08/31/23 01:00 38.0 C H 81 20 94 08/31/23 01:00 38 C H 86 20 118/56 L 94 08/31/23 00:30 38.0 C H 87 14 98 08/31/23 00:00 37.9 C H 89 17 99 08/31/23 00:00 38.0 C H 86 20 122/56 L 94 08/31/23 00:00 104 H 08/30/23 23:50 90 08/30/23 23:30 37.9 C H 90 22 99 08/30/23 23:00 118/56 L 08/30/23 23:00 37.8 C H 93 H 22 97 08/30/23 23:00 37.6 C H 87 20 121/58 L 100 08/30/23 22:30 37.7 C H 94 H 21 99 08/30/23 22:24 08/30/23 22:00 37.6 C H 96 H 25 H 99 08/30/23 22:00 119/57 L 99 08/30/23 22:00 37.6 C H 95 H 22 99 08/30/23 21:45 37.6 C H 96 H 20 119/57 L 94 08/30/23 21:30 37.5 C 99 H 26 H 83 L 08/30/23 21:00 117/54 L 08/30/23 21:00 37.3 C 103 H 25 H 96 08/30/23 20:30 37.1 C 105 H 35 H 93 08/30/23 20:00 123/51 L 08/30/23 20:00 37.1 C 108 H 17 98 08/30/23 20:00 37.6 C H 91 H 22 99 08/30/23 19:30 36.9 C 108 H 31 H 99 O2 Del Method O2 Flow Rate 08/31/23 07:00 08/31/23 07:00 08/31/23 06:00 08/31/23 06:00 08/31/23 06:00 Nasal Cannula 2 08/31/23 05:30 Nasal Cannula 2 08/31/23 05:00 Room Air 08/31/23 05:00 08/31/23 05:00 Room Air 08/31/23 04:30 08/31/23 04:00 Room Air 08/31/23 04:00 08/31/23 04:00 Room Air 08/31/23 03:30 Room Air 08/31/23 03:00 08/31/23 03:00 Room Air 08/31/23 03:00 Room Air 08/31/23 02:30 Room Air 08/31/23 02:00 08/31/23 02:00 08/31/23 02:00 Room Air 08/31/23 01:30 Room Air 08/31/23 01:00 08/31/23 01:00 Room Air 08/31/23 01:00 Room Air 08/31/23 00:30 08/31/23 00:00 Room Air 08/31/23 00:00 Room Air 08/31/23 00:00 08/30/23 23:50 08/30/23 23:30 08/30/23 23:00 08/30/23 23:00 08/30/23 23:00 Room Air 08/30/23 22:30 Room Air 08/30/23 22:24 Nasal Cannula 2 08/30/23 22:00 08/30/23 22:00 08/30/23 22:00 Nasal Cannula 2 08/30/23 21:45 Nasal Cannula 2 08/30/23 21:30 Nasal Cannula 2 08/30/23 21:00 08/30/23 21:00 08/30/23 20:30 08/30/23 20:00 08/30/23 20:00 08/30/23 20:00 Room Air 08/30/23 19:30 Lab & Micro Results (Past 24 Hours) RBC 3.04 M/uL (4.70-6.10) L 08/31/23 WBC 8.53 K/ul (4.8-10.8) 08/31/23 Hgb 9.1 g/dl (14.0-18.0) L 08/31/23 Hct 27.1 % (42.0-52.0) L 08/31/23 MCV 89.1 fL (80.0-100.0) 08/31/23 MCH 29.9 pg (25.0-34.0) 08/31/23 MCHC 33.6 g/dL (32.0-36.0) 08/31/23 RDW Standard Deviation 45.9 fL (36.4-46.3) 08/31/23 RDW Coefficient of Variation 14.1 % (11.5-14.5) 08/31/23 Plt Count 204 K/uL (130-400) 08/31/23 MPV 10.4 fL (9.4-12.4) 08/31/23 Neutrophils (%) (Auto) 80.0 % 08/31/23 Lymphocytes (%) (Auto) 9.5 % 08/31/23 Monocytes # (Auto) 0.83 K/uL (0.11-0.59) H 08/31/23 Eosinophils # (Auto) 0.00 K/uL (0.00-0.50) 08/31/23 Immature Granulocyte % (Auto) 0.7 % 08/31/23 Neutrophils # (Auto) 6.82 K/uL (1.40-6.50) H 08/31/23 Lymphocytes # (Auto) 0.81 K/uL (1.20-3.40) L 08/31/23 Monocytes # (Auto) 0.83 K/uL (0.11-0.59) H 08/31/23 Eosinophils # (Auto) 0.00 K/uL (0.00-0.50) 08/31/23 Basophils # (Auto) 0.01 K/uL (0.00-0.20) 08/31/23 Immature Granulocyte # (Auto) 0.06 K/uL (0.01-0.20) 4 Na 137 mmol/L (136-145) 08/31/23 K 3.7 mmol/L (3.5-5.1) 08/31/23 Cl 103 mmol/L (98-107) 08/31/23 CO2 21 mmol/L (21-32) 08/31/23 Anion Gap 13 (3-11) H 08/31/23 BUN 33 mg/dl (6-23) H 08/31/23 Creatinine 2.33 mg/dl (0.6-1.4) H 08/31/23 Estimated GFR ( Amer) 30.6 ml/min 08/31/23 Estimated GFR (Non-Af Amer) 26.4 ml/min 08/31/23 BUN/Creatinine Ratio 14.2 (10-20) 08/31/23 Glu 204 mg/dl (70-99(Fasting)) H 08/31/23 Ca 8.0 mg/dl (8.6-10.3) L 08/31/23 Phosphorus Level 1.7 mg/dl (2.5-4.9) L 08/31/23 Total Bilirubin 0.3 mg/dl (0.2-1.0) 08/30/23 AST 94 U/L (13-39) H 08/30/23 ALT 52 U/L (7-52) 08/30/23 Alkaline Phosphatase 141 U/L (34-104) H 08/30/23 TP 6.4 gm/dl (6.0-8.3) 08/30/23 Albumin 3.8 gm/dl (3.4-5.0) 08/30/23 Globulin 2.6 gm/dl (2.5-4.0) 08/30/23 Albumin/Globulin Ratio 1.5 (0.9-2) 08/30/23 Mg 2.0 mg/dl (1.7-2.4) 08/31/23 03:55 Calcium Level 8.0 mg/dl (8.6-10.3) L 08/31/23 03:55 Prothromb Time International Ratio 1.0 (0.9-1.1) 08/30/23 16:2 4 Venous Blood pH 7.35 (7.36-7.41) L 08/31/23 03:55 Venous Blood Partial Pressure CO2 17 mmHg (38-50) L 08/30/23 14 :32 Venous Blood Partial Pressure O2 47 mmHg 08/30/23 14:32 Venous Blood HCO3 TNP 08/30/23 14:32 Venous Blood Base Excess TNP 08/30/23 14:32 Venous Blood Oxygen Saturation 72.5 % 08/30/23 14:32 Diagnostic Findings (Past 24 Hours) Chest X-Ray 08/30/23 12:25 XR chest 1V portable CLINICAL HISTORY: weakness COMPARISON STUDY: Chest radiograph and chest CT August 03, 2023. FINDINGS: Lung volumes are normal. Lungs are clear. There is no pneumothorax or pleural effusion. Cardiac size is normal. Mediastinal contours are normal. There is no evidence for pulmonary edema. Multiple subacute and chronic right-sided rib fractures are noted. There are old left-sided rib fractures. IMPRESSION: No acute cardiopulmonary findings. ACT 112: Negative or not required by law. Electronically signed by: Ang Park M.D. 08/30/2023 1:[address] 08/30/23 12:25 CT OF THE HEAD WITHOUT CONTRAST CLINICAL HISTORY: weak, confused COMPARISON STUDY: MRI of the brain February 28, 2012. Head CT August 03, 2023. TECHNIQUE: Helical axial images of the head were obtained without IV contrast. Automated exposure control was utilized for the study. A dose lowering technique was utilized adhering to the principles of ALARA. FINDINGS: No acute intracranial hemorrhage, midline shift or mass effect is present. White matter hypodensities are unchanged and favor small vessel disease. The ventricular system is unremarkable. The basal cisterns are patent. No extra-axial collections are present. There are no findings to suggest acute dural sinus thrombosis or acute territorial infarct. No significant calvarial abnormalities are present. Visualized portions of the sinuses and mastoid air cells are clear. IMPRESSION: No acute intracranial findings. ACT 112: Negative or not required by law. Electronically signed by: Ang Park M.D. 08/30/2023 1:58 PM Abdomen/Pelvis CT 08/30/23 12:38 CT OF THE ABDOMEN AND PELVIS WITHOUT CONTRAST CLINICAL HISTORY: Acute kidney injury, weak, confusion. COMPARISON STUDY: CT of the abdomen and pelvis August 03, 2023. TECHNIQUE: Axial images of the abdomen and pelvis were obtained without IV contrast. Images were reviewed in the axial, sagittal, and coronal planes. Automated exposure control was utilized for the study. A dose lowering technique was utilized adhering to the principles of ALARA. FINDINGS: Multiple healing right-sided rib fractures are incidentally noted. No pneumatosis, free air or portal venous gas is present. There is a 3 mm left renal calculus. No ureteral calculi are present and there is no hydronephrosis. Moderate bladder wall thickening is present. Evaluation of the remainder of the abdomen and pelvis is suboptimal on this unenhanced exam. Liver, spleen, adrenal glands and pancreas are unremarkable. There is no biliary or pancreatic ductal dilatation. Mesenteric stranding is of doubtful significance. There is no evidence for a bowel obstruction. The appendix is normal. No fluid collections are present. There is no ascites. No lymphadenopathy. No acute fractures are identified. IMPRESSION: 1. 3 mm left renal calculus. No ureteral calculi. No hydronephrosis. 2. No bowel obstruction. 3. Bladder wall thickening. This is likely chronic although could be correlated with urinalysis. ACT 112: Negative or not required by law. Electronically signed by: Ang Park M.D. 08/30/2023 2:04 PM I & O Totals 24 Hours 08/30/23 08/31/23 09/01/23 06:59 06:59 06:59 Intake Total 5457.075 / 5457.075 130.313 / 130.313 Output Total 550 / 550 Balance 4907.075 / 4907.075 130.313 / 130.313 Cumulative 08/30/23 11:51 thru 08/31/23 07:10 Intake Total 5587.388 Output Total 550 Balance 5037.388 RT Ventilator Mngmt (Last Documented) Ventilator Ordered Settings Respiratory Rate 26 08/31/23 07:00 Ventilator - PT Measurements Respiratory Rate 26 Coding Level of Care Code 17779 SUB INP/OBS CARE 3/50MIN Diagnoses DKA (diabetic ketoacidosis) E11.10 Metabolic acidosis, increased anion gap E87.29 Atrial fibrillation with RVR I48.91 ROHIT (acute kidney injury) N17.9
--- NOTE | 2023-08-31 07:35 | Electrocardiogram Report ---
Test Reason : Blood Pressure : / mmHG Vent. Rate : 098 BPM Atrial Rate : 000 BPM P-R Int : 000 ms QRS Dur : 132 ms QT Int : 400 ms P-R-T Axes : 000 057 045 degrees QTc Int : 510 ms Uncertain supraventricular rhythm, may be an accelerated juntional tachycardia Non-specific intra-ventricular conduction block Abnormal ECG When compared with ECG of 14-JUL-2023 16:35, QRS duration has increased Nonspecific T wave abnormality no longer evident in Inferior leads Confirmed by Kurt Pendleton ([id number]) on 08/31/2023 7:34:55 AM Referred By: REFERRED SELF Confirmed By:Kurt Pendleton
--- NOTE | 2023-08-31 07:44 | Electrocardiogram Report ---
Test Reason : Blood Pressure : / mmHG Vent. Rate : 105 BPM Atrial Rate : 105 BPM P-R Int : 000 ms QRS Dur : 108 ms QT Int : 426 ms P-R-T Axes : 000 068 048 degrees QTc Int : 563 ms Uncertain supraventricular tachycardia, possibly sinus Prolonged QT Abnormal ECG When compared with ECG of 30-AUG-2023 12:12, (unconfirmed) Questionable change in QRS duration Confirmed by Kurt Pendleton ([id number] on 08/31/2023 7:43:32 AM Referred By: REFERRED SELF Confirmed By:Kurt Pendleton
[2023-08-31] MEDS: CALCIUM GLUCONATE 10% 1,000 MG in SODIUM CHLOR 0.9% MINI-B 50 ML IV SCH (07:57)
[2023-08-31] MEDS: SODIUM PHOSPHATE 12 MMOL in SODIUM CHLORIDE 0.9% 250 ML IV ONE (07:57)
[2023-08-31] MEDS: LACTATED RINGER'S 1,000 ML IV SCH (08:01)
[2023-08-31] MEDS: LANTUS PER UNIT CHARGE SC STA (08:39)
[2023-08-31 10:05] LABS: Potassium 3.7 mmol/L (3.5-5.1)
[2023-08-31 10:06] LABS: Calcium 8.1 mg/dl (8.6-10.3); Creatinine Clr Calc Pharmacy 35.4 ml/min; Est GFR (African American) 36.7 ml/min; Est GFR (Non-African American) 31.7 ml/min; Magnesium 1.9 mg/dl (1.7-2.4); Phosphorus 2.1 mg/dl (2.5-4.9)
[2023-08-31 10:23] LABS: ANTI-Xa, UFH(UnfractionatedHep 0.21 IU/ml (0.3-0.7)
--- NOTE | 2023-08-31 10:38 | Pharmacy Report ---
Pharmacy Glycemic Short Note 2 - Date of Service August 31, 2023 - Glycemic Short BSG Results (Last 24 hours): 08/30/23 08/30/23 08/30/23 12:08 12:29 12:32 Glucose 942 H* POC Glucose > 600 H* POC Glucose (other) > 700 H* Fasting Glucose 08/30/23 08/30/23 08/30/23 13:53 14:27 15:42 Glucose 800 H* POC Glucose > 600 H* > 600 H* POC Glucose (other) Fasting Glucose 08/30/23 08/30/23 08/30/23 16:24 16:48 17:45 Glucose 662 H* POC Glucose > 600 H* POC Glucose (other) Fasting Glucose 606 H* 08/30/23 08/30/23 08/30/23 17:46 18:57 20:47 Glucose POC Glucose 557 H* 575 H* 397 H* POC Glucose (other) Fasting Glucose 08/30/23 08/30/23 08/30/23 21:01 21:51 22:46 Glucose 418 H* POC Glucose 369 H* 363 H* POC Glucose (other) Fasting Glucose 08/30/23 08/31/23 08/31/23 23:47 00:39 00:53 Glucose 276 H POC Glucose 289 H 250 H POC Glucose (other) Fasting Glucose 08/31/23 08/31/23 08/31/23 01:48 02:47 03:48 Glucose POC Glucose 258 H 250 H 203 H POC Glucose (other) Fasting Glucose 08/31/23 08/31/23 08/31/23 03:55 04:50 05:48 Glucose 204 H POC Glucose 189 H 163 H POC Glucose (other) Fasting Glucose 08/31/23 08/31/23 08/31/23 06:41 07:47 08:30 Glucose POC Glucose 140 H 131 H 105 H POC Glucose (other) Fasting Glucose 08/31/23 08/31/23 09:22 09:47 Glucose 93 POC Glucose 95 POC Glucose (other) Fasting Glucose OUTPATIENT ANTIDIABETIC REGIMEN: * Lantus 25 units SC daily * Novolog ACHS: CF 30, CR 5 * HbA1c: 8.5% (08/15/23) ASSESSMENT: * 73 yo M admitted on 08/30/23 secondary to DKA. Pharmacy has been consulted to assist with inpatient glycemic management. Patient is a Type 1 diabetic as an outpatient. Please refer to outpatient regimen and most recent HbA1c above. * Started on insulin drip for DKA yesterday afternoon. Unable to calculate true usage as first bag of insulin had questions if adsorption occurred because rates were extremely high without improvement in BSGs for a T1 diabetic. * Gap closed on AM labs with CO2 and pH normal. Gave 20 units of basal and overlapped with drip for approximately 2 hours this morning. At time of transition, insulin drip was running at 3.8 units/hr and most recent BSG was 95 mg/dL. * Dextrose fluids discontinued. T1DM diet entered for lunch. Patient will be transferred to hospitalist service. * Based on previous admission data from 07/2023 when patient was admitted for same reason, will start Novolog ACHS at CF20,CR5 and order daily basal starting tomorrow. Follow to see if tolerating diet. PLAN FOR INPATIENT GLYCEMIC CONTROL: * Discontinue Insulin drip * Basal insulin * Lantus 20 units SC x 1 this AM * Lantus 18 units SC daily starting tomorrow * Bolus insulin * NovoLog per scale ACHS or Q6hrs while NPO * Goal Range: Low 120 mg/dL - High 160 mg/dL * Correction Factor: 20 mg/dL/unit * Nutritional / Prandial insulin per carb ratio of 1 unit per 5 grams CHO consumed
[2023-08-31] MEDS: CALCITRIOL 0.25 MCG CAPSULE PO SCH (11:15)
[2023-08-31] MEDS: ESCITALOPRAM OXALATE 20 MG TAB PO SCH (11:15)
[2023-08-31] MEDS: INSULIN ASPART PER UNIT CHARGE SC SCH (11:41)
--- NOTE | 2023-08-31 11:48 | Electrocardiogram Report ---
Test Reason : Blood Pressure : / mmHG Vent. Rate : 085 BPM Atrial Rate : 085 BPM P-R Int : 160 ms QRS Dur : 106 ms QT Int : 404 ms P-R-T Axes : 093 054 071 degrees QTc Int : 480 ms Normal sinus rhythm Prolonged QT Nonspecific ST abnormality Abnormal ECG When compared with ECG of 30-AUG-2023 16:55, Criteria for Septal infarct are no longer Present QT has shortened Confirmed by Xavier Vasquez ([id number]) on 08/31/2023 11:47:44 AM Referred By: REFERRED SELF Confirmed By:Xavier Vasquez
[2023-08-31] MEDS: METOPROLOL SUCC 25MG EXT REL TAB PO SCH (12:05)
--- NOTE | 2023-08-31 14:55 | Hospitalist Progress Note ---
Date of Service August 31, 2023 Assessment & Plan (1) DKA (diabetic ketoacidosis): Plan: Life-threatening diabetic ketoacidosis with pH < 7.0, bicarb 4, anion gap 34 - admitted to ICU and treated with insulin drip, IV fluids and electrolyte replacement per DKA protocol Antibiotics stopped by critical care team. Leukocytosis could be related to stress response. DKA was triggered because he was not taking his insulin at home. Recent endocrine note mentions the broken Dexcom but instructed him to continue insulin and use glucometer. UA abnormal but also contaminated with epi cells, possibly could have UTI Anion gap has closed, more alert and able to advance diet, transitioning off insulin drip today. Resume glargine and Premeal/correctional aspart, pharmacist glycemic consult (2) ROHIT (acute kidney injury): Plan: CT without obstructive cause, prerenal injury related to DKA, Cr improved slightly to 2.0 overnight but UOP low (250 output today), granular casts on UA c/w ATN -continue IV NS at 125/h -cont cherry for now, monitor UOP -AM BMP (3) Atrial fibrillation with RVR: Plan: New onset. Currently NSR but has been in and out of afib thus far TSH 5.4 on replacement TTE - pending reading Ordered po metoprolol [id number] is 4, would benefit from anticoagulation for stroke risk reduction. Stroke risk around 5% per year so benefits of treatment outweigh bleeding risk. Will discuss with patient when mentation improved Cont tele (4) SIRS (systemic inflammatory response syndrome): Plan: No source to diagnosis sepsis on admission. recent micrococcus bacteremia concerning (treat with Unasyn -> Augmentin last admission) Blood cultures P UA appears contaminated with epi cells and granular casts consistent with ATN. Also WBC RBC and bacteria. Possible UTI. Had antibiotics on admission, ceftriaxone yesterday afternoon. Will continue ceftriaxone awaiting urine culture (5) Acute hyperkalemia: Plan: Secondary to DKA/lack of insulin and ROHIT treated with calcium gluconate 1g IV x2 in the ER, insulin drip - resolved (6) Metabolic acidosis, increased anion gap: Plan: caused by DKA, resolved (7) Elevated troponin: Plan: Low suspicion of ACS, suspected demand-ischemia, repeat pending TTE as above for a. fib RVR (8) Legally blind: (9) Hypothyroidism: Plan: TSH 5.408, improving since December 2022 Continue his usual levothyroxine (10) GERD (gastroesophageal reflux disease): Plan: Switch omeprazole for pantoprazole 40mg IV Plan VTE Prophylaxis - start apixaban Admission and Anticipated Discharge Date Admission Date: August 30, 2023 Subjective Remains confused but now alert and improved compared to yesterday Can't articulate why he didn't take his insulin except stated that his dexcom was broken No chest or abdominal pain, no N/V Physical Exam 2 Physical Exam: PHYSICAL EXAMINATION Last 24h vital signs reviewed, see documentation in flowsheet General: comfortable appearing, no distress HEENT: Normocephalic, atraumatic, pupils round and equal, sclerae anicteric, no conjunctival injection, moist mucus membranes Lungs: Normal respiratory effort. Clear to auscultation bilaterally. No RRW Heart: Regular rate and rhythm, no murmurs. No JVD Abdomen: Soft, nontender, nondistended. Bowel sounds present. Extremities: Warm, dry, well-perfused. No extremity edema. Neuro: Alert and oriented x person hospital is confused not fully oriented to situation, face symmetric, moves 4 extremities well Psych: Normal affect and behavior Results & Data Results & Data Vital Signs (Past 12 Hours) Vital Signs Temp Pulse Pulse Resp BP BP Pulse Ox 08/31/23 13:00 121/65 08/31/23 13:00 37.7 C H 88 29 H 94 08/31/23 12:00 131/61 08/31/23 12:00 37.6 C H 88 29 H 97 08/31/23 11:01 37.5 C 88 15 91 08/31/23 11:01 145/54 H 08/31/23 11:00 37.5 C 86 22 91 08/31/23 10:00 37.6 C H 82 27 H 97 08/31/23 09:00 37.6 C H 84 24 89 L 08/31/23 09:00 117/52 L 08/31/23 08:01 37.6 C H 85 17 90 08/31/23 08:01 111/46 L 08/31/23 08:00 37.6 C H 87 20 90 08/31/23 08:00 88 08/31/23 07:30 08/31/23 07:00 37.8 C H 85 26 H 91 08/31/23 07:00 119/53 L 08/31/23 06:00 37.8 C H 84 33 H 95 08/31/23 06:00 114/53 L 08/31/23 06:00 37.8 C H 89 20 114/53 L 93 08/31/23 05:30 37.8 C H 85 20 93 08/31/23 05:00 115/52 L 08/31/23 05:00 37.8 C H 83 24 93 08/31/23 05:00 37.8 C H 85 18 115/52 L 94 08/31/23 04:30 37.9 C H 85 19 94 08/31/23 04:00 37.9 C H 85 24 97 08/31/23 04:00 117/55 L 08/31/23 04:00 37.9 C H 84 20 117/55 L 94 08/31/23 03:30 38.0 C H 85 20 95 08/31/23 03:00 38.0 C H 85 14 95 08/31/23 03:00 112/49 L 08/31/23 03:00 38 C H 85 20 112/49 L 95 O2 Del Method O2 Flow Rate 08/31/23 13:00 08/31/23 13:00 08/31/23 12:00 08/31/23 12:00 08/31/23 11:01 08/31/23 11:01 08/31/23 11:00 08/31/23 10:00 08/31/23 09:00 08/31/23 09:00 08/31/23 08:01 08/31/23 08:01 08/31/23 08:00 08/31/23 08:00 08/31/23 07:30 Room Air 08/31/23 07:00 08/31/23 07:00 08/31/23 06:00 08/31/23 06:00 08/31/23 06:00 Nasal Cannula 2 08/31/23 05:30 Nasal Cannula 2 08/31/23 05:00 Room Air 08/31/23 05:00 08/31/23 05:00 Room Air 08/31/23 04:30 08/31/23 04:00 Room Air 08/31/23 04:00 08/31/23 04:00 Room Air 08/31/23 03:30 Room Air 08/31/23 03:00 08/31/23 03:00 Room Air 08/31/23 03:00 Room Air Laboratory Results 08/31/23 03:55 08/31/23 09:22 PG Care Time/CCT Total # of Minutes Spent Total Time Spent with Patient: Total time spent is greater than 50% in coordination of care (as documented) at patient's floor/unit and/or counseling patient: Coding Level of Care Code 78382 SUB INP/OBS CARE 3/50MIN Diagnoses DKA (diabetic ketoacidosis) E11.10 ROHIT (acute kidney injury) N17.9 Atrial fibrillation with RVR I48.91 SIRS (systemic inflammatory response syndrome) R65.10 Acute hyperkalemia E87.5 Metabolic acidosis, increased anion gap E87.29 Elevated troponin R79.89 Legally blind H54.8 Acquired hypothyroidism E03.9 Hypothyroidism type: acquired GERD (gastroesophageal reflux disease) K21.9 (9) Hypothyroidism Hypothyroidism type: acquired Qualified Code(s): E03.9 - Hypothyroidism, unspecified
[2023-08-31] MEDS: cefTRIAXone SODIUM 2,000 MG in DEXTROSE 5 % MINI-B 50 ML IV SCH (16:16)
[2023-08-31] MEDS: SODIUM CHLORIDE 0.9% 1,000 ML IV SCH (16:16)
[2023-08-31] MEDS: ACETAMINOPHEN 325 MG TAB PO PRN (20:16)
[2023-08-31] MEDS: ATORVASTATIN 40 MG TAB PO SCH (20:16)
[2023-08-31] MEDS: HEPARIN SOD 5,000 UNIT/0.5 ML VIAL SQ SCH (20:17)
--- NOTE | 2023-08-31 22:32 | XCELERA ---
[id number] [id number]
[2023-09-01] MEDS: LEVOTHYROXINE SODIUM 125 MCG TABLET PO SCH (06:22)
[2023-09-01] MEDS: PANTOprazole 40 MG TAB PO SCH (07:57)
[2023-09-01 08:37] LABS: Basophils # (auto) 0.01 K/uL (0.00-0.20); Basophils % (auto) 0.2 %; Eosinophils # (auto) 0.01 K/uL (0.00-0.50); Eosinophils % (auto) 0.2 %; Hematocrit (blood only) 28.1 % (42.0-52.0); Hemoglobin 9.4 g/dl (14.0-18.0); Immature Granulocytes # (auto) 0.05 K/uL (0.01-0.20); Immature Granulocytes % (auto) 0.9 %; Lymphocytes # (auto) 0.65 K/uL (1.20-3.40); Lymphocytes % (auto) 12.3 %; Mean Corpuscular Hgb Conc 33.5 g/dL (32.0-36.0); Mean Corpuscular Volume 89.8 fL (80.0-100.0); Monocytes # (auto) 0.54 K/uL (0.11-0.59); Monocytes % (auto) 10.2 %; Neutrophils # (auto) 4.02 K/uL (1.40-6.50); Neutrophils % (auto) 76.2 %; Platelet Count 155 K/uL (130-400); RDW Coefficient of Variation 15.1 % (11.5-14.5); RDW Standard Deviation 49.2 fL (36.4-46.3); Red Blood Count 3.13 M/uL (4.70-6.10); White Blood Count 5.28 K/ul (4.8-10.8)
[2023-09-01 09:02] LABS: A calco-baum cmplx NotReported Not Detected (NotDetected); Bact fragilis Not Reported Not Detected (NotDetected); Blood Culture Id Panel PCR Panel Negative (NotDetected); C auris Not Reported Not Detected (NotDetected); Calbicans Not Reported Not Detected (NotDetected); Candida glabrata Not Reported Not Detected (NotDetected); Candida krusei Not Reported Not Detected (NotDetected); Cneoformans/gatti Not Reported Not Detected (NotDetected); Cparapsilosis Not Reported Not Detected (NotDetected); E cloacae compx Not Reported Not Detected (NotDetected); Efaecalis Not Reported Not Detected (NotDetected); Efaecium Not Reported Not Detected (NotDetected); Enterobacterales Not Reported Not Detected (NotDetected); Escherichia coli Not Reported Not Detected (NotDetected); H influenzae Not Reported Not Detected (NotDetected); K aerogenes Not Reported Not Detected (NotDetected); Koxytoca Not Reported Not Detected (NotDetected); Kpneumoniae grp Not Reported Not Detected (NotDetected); Lmonocyt Not Reported Not Detected (NotDetected); N meningitidis Not Reported Not Detected (NotDetected); P aeruginosa Not Reported Not Detected (NotDetected); Proteus spp Not Reported Not Detected (NotDetected); Salmonella spp Not Reported Not Detected (NotDetected); Smarcescens Not Reported Not Detected (NotDetected); Staph lugdunensis Not Reported Not Detected (NotDetected); Staph spp. Not Reported Not Detected (NotDetected); Staphaureus Not Reported Not Detected (NotDetected); Staphepi Not Reported Not Detected (NotDetected); Stenmaltophilia Not Reported Not Detected (NotDetected); Strep agal(GrpB) Not Reported Not Detected (NotDetected); Strep pneum Not Reported Not Detected (NotDetected); Strep pyog (GrpA) Not Reported Not Detected (NotDetected); Strep spp Not Reported Not Detected (NotDetected)
[2023-09-01] MEDS ORDERED: LANTUS PER UNIT CHARGE SQ ONE (09:21)
[2023-09-01] MEDS: LANTUS PER UNIT CHARGE SC STA (09:54)
[2023-09-01] MEDS: LANTUS PER UNIT CHARGE SC SCH (11:50)
--- NOTE | 2023-09-01 14:32 | Pharmacy Report ---
Pharmacy Glycemic Short Note 2 - Date of Service September 01, 2023 - Glycemic Short BSG Results (Last 24 hours): 08/31/23 08/31/23 08/31/23 17:12 20:48 21:15 POC Glucose 106 H 74 83 09/01/23 09/01/23 08:16 12:08 POC Glucose 293 H 256 H OUTPATIENT ANTIDIABETIC REGIMEN: * Lantus 25 units SC daily * Novolog ACHS: CF 30, CR 5 * HbA1c: 8.5% (08/15/23) ASSESSMENT: 08/31: * Kvng received 41 units of insulin yesterday, 20 basal + 21 bolus. BSGs were: 664-17-187-83 mg/dL. * Fasting BSG up to 293 mg/dL today. No report of snacking. Provider wants to increase to home dose of 25 units daily. * No change to Novolog. 08/30: * 73 yo M admitted on 08/30/23 secondary to DKA. Pharmacy has been consulted to assist with inpatient glycemic management. Patient is a Type 1 diabetic as an outpatient. Please refer to outpatient regimen and most recent HbA1c above. * Started on insulin drip for DKA yesterday afternoon. Unable to calculate true usage as first bag of insulin had questions if adsorption occurred because rates were extremely high without improvement in BSGs for a T1 diabetic. * Gap closed on AM labs with CO2 and pH normal. Gave 20 units of basal and overlapped with drip for approximately 2 hours this morning. At time of transition, insulin drip was running at 3.8 units/hr and most recent BSG was 95 mg/dL. * Dextrose fluids discontinued. T1DM diet entered for lunch. Patient will be transferred to hospitalist service. * Based on previous admission data from 07/2023 when patient was admitted for same reason, will start Novolog ACHS at CF20,CR5 and order daily basal starting tomorrow. Follow to see if tolerating diet. PLAN FOR INPATIENT GLYCEMIC CONTROL: * Basal insulin * Lantus 25 units SC AM - per provider * Bolus insulin * NovoLog per scale ACHS or Q6hrs while NPO * Goal Range: Low 120 mg/dL - High 160 mg/dL * Correction Factor: 20 mg/dL/unit * Nutritional / Prandial insulin per carb ratio of 1 unit per 5 grams CHO consumed
--- NOTE | 2023-09-01 17:01 | Hospitalist Progress Note ---
Date of Service September 01, 2023 Assessment & Plan (1) DKA (diabetic ketoacidosis): Plan: Life-threatening diabetic ketoacidosis with pH < 7.0, bicarb 4, anion gap 34 - admitted to ICU and treated with insulin drip, IV fluids and electrolyte replacement per DKA protocol Antibiotics stopped by critical care team. Leukocytosis could be related to stress response. DKA was triggered because he was not taking his insulin at home. Recent endocrine note mentions the broken Dexcom but instructed him to continue insulin and use glucometer. UA abnormal but also contaminated with epi cells, possibly could have UTI Anion gap has closed, transitioned off insulin drip 08/30. Resumed glargine and Premeal/correctional aspart, pharmacist glycemic consult - back to usual dose of glargine this AM, discussed with pharmacist -missed BMP today, serial labs were ordered but starting 09/01 (2) ROHIT (acute kidney injury): Plan: CT without obstructive cause, prerenal injury related to DKA, Cr improved slightly to 2.0 overnight but UOP low (250 output today), granular casts on UA c/w ATN -saline lock IV and DC cherry -missed BMP today but UOP much improved -AM BMP (3) Atrial fibrillation with RVR: Plan: New onset. has been in and out of afib TSH 5.4 on replacement TTE - nl EF 60-65% no rwma's mild LVH, borderline LA enlargement, grossly normal MV, AV not well seen, limited study technically difficult continue po metoprolol, start apixaban [id number] is 4, would benefit from anticoagulation for stroke risk reduction. Stroke risk around 5% per year so benefits of treatment outweigh bleeding risk. Cont tele (4) SIRS (systemic inflammatory response syndrome): Plan: No source to diagnosis sepsis on admission. recent micrococcus bacteremia concerning (treat with Unasyn -> Augmentin last admission) UA appears contaminated with epi cells and granular casts consistent with ATN. Also WBC RBC and bacteria. Urine Cx prelim negative however. One bottle from blood with GPR but likely a contaminant. WBC normalized, no further fevers. Will continue ceftriaxone awaiting urine and blood culture (5) Acute hyperkalemia: Plan: Secondary to DKA/lack of insulin and ROHIT treated with calcium gluconate 1g IV x2 in the ER, insulin drip - resolved (6) Metabolic acidosis, increased anion gap: Plan: caused by DKA, resolved (7) Elevated troponin: Plan: Low suspicion of ACS, elevated troponin from demand ischemia TTE as above for a. fib RVR, no rwma's. (8) Legally blind: (9) Hypothyroidism: Plan: TSH 5.408, improving since December 2022 Continue his usual levothyroxine (10) GERD (gastroesophageal reflux disease): Plan: oral PPI Plan VTE Prophylaxis - start apixaban Admission and Anticipated Discharge Date Admission Date: August 30, 2023 Subjective Mental status improved. Alert and oriented to situation today. His visited midday and I went back but missed her. No dyspnea CP or abdominal pain. no more fever Physical Exam 2 Physical Exam: PHYSICAL EXAMINATION Last 24h vital signs reviewed, see documentation in flowsheet General: comfortable appearing, no distress, sitting up in bed HEENT: Normocephalic, atraumatic, pupils round and equal, sclerae anicteric, no conjunctival injection, moist mucus membranes Lungs: Normal respiratory effort. Clear to auscultation bilaterally. No RRW Heart: Regular rate and rhythm, no murmurs. No JVD Abdomen: Soft, nontender, nondistended. Bowel sounds present. Extremities: Warm, dry, well-perfused. No extremity edema. Neuro: Alert and oriented x 4, face symmetric, moves 4 extremities well Psych: Normal affect and behavior Results & Data Results & Data Vital Signs (Past 12 Hours) Vital Signs Temp Pulse Pulse Resp BP Pulse Ox O2 Del Method 09/01/23 16:25 36.9 C 76 16 119/61 94 Room Air 09/01/23 15:15 70 09/01/23 11:45 37.2 C 59 L 16 132/69 97 Room Air 09/01/23 08:29 37.4 C 76 16 124/61 91 Room Air 09/01/23 08:00 77 Laboratory Results 09/01/23 08:14 08/31/23 09:22 PG Care Time/CCT Total # of Minutes Spent Total Time Spent with Patient: Total time spent is greater than 50% in coordination of care (as documented) at patient's floor/unit and/or counseling patient: Coding Level of Care Code 39825 SUB INP/OBS CARE 2/35MIN Diagnoses DKA (diabetic ketoacidosis) E11.10 ROHIT (acute kidney injury) N17.9 Atrial fibrillation with RVR I48.91 SIRS (systemic inflammatory response syndrome) R65.10 Acute hyperkalemia E87.5 Metabolic acidosis, increased anion gap E87.29 Elevated troponin R79.89 Legally blind H54.8 Acquired hypothyroidism E03.9 Hypothyroidism type: acquired GERD (gastroesophageal reflux disease) K21.9 (9) Hypothyroidism Hypothyroidism type: acquired Qualified Code(s): E03.9 - Hypothyroidism, unspecified
[2023-09-01] MEDS: APIXABAN 5 MG TABLET PO SCH (20:36)
[2023-09-02 07:34] LABS: Basophils # (auto) 0.01 K/uL (0.00-0.20); Basophils % (auto) 0.3 %; Eosinophils # (auto) 0.13 K/uL (0.00-0.50); Eosinophils % (auto) 3.4 %; Hematocrit (blood only) 26.9 % (42.0-52.0); Hemoglobin 9.1 g/dl (14.0-18.0); Immature Granulocytes # (auto) 0.02 K/uL (0.01-0.20); Immature Granulocytes % (auto) 0.5 %; Lymphocytes # (auto) 0.76 K/uL (1.20-3.40); Lymphocytes % (auto) 19.8 %; Mean Corpuscular Hemoglobin 30.6 pg (25.0-34.0); Mean Corpuscular Hgb Conc 33.8 g/dL (32.0-36.0); Mean Corpuscular Volume 90.6 fL (80.0-100.0); Mean Platelet Volume 10.1 fL (9.4-12.4); Monocytes # (auto) 0.27 K/uL (0.11-0.59); Neutrophils # (auto) 2.64 K/uL (1.40-6.50); Platelet Count 142 K/uL (130-400); RDW Standard Deviation 50.5 fL (36.4-46.3); Red Blood Count 2.97 M/uL (4.70-6.10); White Blood Count 3.83 K/ul (4.8-10.8)
[2023-09-02 07:50] LABS: BUN Creatinine Ratio 23.3 (10-20); Calcium 7.7 mg/dl (8.6-10.3); Creatinine Clr Calc Pharmacy 80.6 ml/min; Est GFR (African American) 96.5 ml/min; Est GFR (Non-African American) 83.3 ml/min; Magnesium 1.9 mg/dl (1.7-2.4); Phosphorus 1.9 mg/dl (2.5-4.9); Potassium 3.8 mmol/L (3.5-5.1)
--- NOTE | 2023-09-02 09:31 | Pharmacy Report ---
Pharmacy Glycemic Short Note 2 - Date of Service September 02, 2023 - Glycemic Short BSG Results (Last 24 hours): 09/01/23 09/01/23 09/01/23 12:08 17:08 20:15 Glucose POC Glucose 256 H 138 H 124 H 09/02/23 09/02/23 07:03 08:10 Glucose 281 H POC Glucose 262 H OUTPATIENT ANTIDIABETIC REGIMEN: * Lantus 25 units SC daily * Novolog ACHS: CF 30, CR 5 * HbA1c: 8.5% (08/15/23) ASSESSMENT: 09/01 * 68 units SQ insulin given over last 24 hours while tolerating a diet * Fasting BSGs elevated last 2 days (significant change vs prior days) - suspect patient may have eaten prior to BSG checks or snacked overnight given HS BSGs at goal. Patient unsure if he ate prior to BSG checks. Will continue current Lantus dose for now as there is danger in uptitrating basal dose given uncertainty of "fasting" values. * Post-prandial BSGs improved with current Novolog doses - continue 08/31: * Kvng received 41 units of insulin yesterday, 20 basal + 21 bolus. BSGs were: 807-66-450-83 mg/dL. * Fasting BSG up to 293 mg/dL today. No report of snacking. Provider wants to increase to home dose of 25 units daily. * No change to Novolog. 08/30: * 73 yo M admitted on 08/30/23 secondary to DKA. Pharmacy has been consulted to assist with inpatient glycemic management. Patient is a Type 1 diabetic as an outpatient. Please refer to outpatient regimen and most recent HbA1c above. * Started on insulin drip for DKA yesterday afternoon. Unable to calculate true usage as first bag of insulin had questions if adsorption occurred because rates were extremely high without improvement in BSGs for a T1 diabetic. * Gap closed on AM labs with CO2 and pH normal. Gave 20 units of basal and overlapped with drip for approximately 2 hours this morning. At time of transition, insulin drip was running at 3.8 units/hr and most recent BSG was 95 mg/dL. * Dextrose fluids discontinued. T1DM diet entered for lunch. Patient will be transferred to hospitalist service. * Based on previous admission data from 07/2023 when patient was admitted for same reason, will start Novolog ACHS at CF20,CR5 and order daily basal starting tomorrow. Follow to see if tolerating diet. PLAN FOR INPATIENT GLYCEMIC CONTROL: * Basal insulin * Lantus 25 units SC Q AM (pt's home dose) - continue for now, follow fasting BSGs * Bolus insulin * NovoLog per scale ACHS or Q6hrs while NPO * Goal Range: Low 120 mg/dL - High 160 mg/dL * Correction Factor: 20 mg/dL/unit * Nutritional / Prandial insulin per carb ratio of 1 unit per 5 grams CHO consumed
[2023-09-02] MEDS: LANTUS PER UNIT CHARGE SC SCH (09:47)
--- NOTE | 2023-09-02 16:54 | Hospitalist Progress Note ---
Date of Service September 02, 2023 Assessment & Plan (1) DKA (diabetic ketoacidosis): Plan: Life-threatening diabetic ketoacidosis with pH < 7.0, bicarb 4, anion gap 34 - admitted to ICU and treated with insulin drip, IV fluids and electrolyte replacement per DKA protocol Antibiotics stopped, cultures negative. Leukocytosis could be related to stress response. DKA was triggered because he was not taking his insulin at home. Recent endocrine note mentions the broken Dexcom but instructed him to continue insulin and use glucometer. Apparently does not have glucometer. UA abnormal but also contaminated with epi cells, culture negative. Blood culture with corynebacterium in 1 bottle c/w contaminant. Leukocytosis resolved Anion gap has closed, transitioned off insulin drip 08/30. Resumed glargine and Premeal/correctional aspart, pharmacist glycemic consult - back to usual dose of glargine -BMP reviewed today, ROHIT has resolved no anion gap, electrolytes adequate (2) ROHIT (acute kidney injury): Plan: CT without obstructive cause, prerenal injury related to DKA, Cr peak 2.33 with low UOP resolved, granular casts on UA c/w ATN -saline lock IV and DC cherry -resolved - Cr 0.9 today -not on KYLE/ARB per home medlist (3) Atrial fibrillation with RVR: Plan: New onset. has been in and out of afib TSH 5.4 on replacement TTE - nl EF 60-65% no rwma's mild LVH, borderline LA enlargement, grossly normal MV, AV not well seen, limited study technically difficult continue po metoprolol, start apixaban [id number] is 4, would benefit from anticoagulation for stroke risk reduction. Stroke risk around 5% per year so benefits of treatment outweigh bleeding risk. Cont tele (4) SIRS (systemic inflammatory response syndrome): Plan: Resolved, related to DKA, sepsis ruled out. (5) Acute hyperkalemia: Plan: Secondary to DKA/lack of insulin and ROHIT treated with calcium gluconate 1g IV x2 in the ER, insulin drip - resolved (6) Metabolic acidosis, increased anion gap: Plan: caused by DKA, resolved (7) Elevated troponin: Plan: Low suspicion of ACS, elevated troponin from demand ischemia TTE as above for a. fib RVR, no rwma's. (8) Legally blind: (9) Hypothyroidism: Plan: TSH 5.408, improving since December 2022 Continue his usual levothyroxine (10) GERD (gastroesophageal reflux disease): Plan: oral PPI Plan [facility], where he uses lift chair stays on 1 level and 2 JORGE. Needing a lot of assistance with PT today, recommending SNF states he hated [facility] and has a referral for outpatient PT at [facility] I updated his 09/01 by phone she is not sure why he did not take his insulin and that he's never done that before. she also says they do have regular meters/lancets at home he has one and she has one. Acute metabolic encephalopathy present on admission related to DKA, improving It seems he has some cognitive impairment had score of 3 on mini-cog this summer in clinic, his says he had some confusion last night when he called her but seemed pretty much his usual self today. VTE Prophylaxis - started apixaban Admission and Anticipated Discharge Date Admission Date: August 30, 2023 Subjective sitting up in chair, gives brief answers to direct Qs but not really conversational has his new dexcom, functioning, at his side Physical Exam 2 Physical Exam: PHYSICAL EXAMINATION Last 24h vital signs reviewed, see documentation in flowsheet General: comfortable appearing, no distress, sitting up in chair HEENT: Normocephalic, atraumatic, pupils round and equal, sclerae anicteric, no conjunctival injection, moist mucus membranes Lungs: Normal respiratory effort. Clear to auscultation bilaterally. No RRW Heart: Regular rate and rhythm, no murmurs. No JVD Abdomen: Soft, nontender, nondistended. Bowel sounds present. Extremities: Warm, dry, well-perfused. 2+ nonpitting extremity edema. Neuro: Alert and oriented x self hospital basic situation, gives brief answers to direct Qs but not really conversational, face symmetric somewhat masked, no tremor, moves 4 extremities Psych: Normal affect and behavior Results & Data Results & Data Vital Signs (Past 12 Hours) Vital Signs Temp Pulse Pulse Resp BP Pulse Ox O2 Del Method 09/02/23 15:38 58 L 09/02/23 15:31 37.1 C 69 16 127/73 98 Room Air 09/02/23 11:21 37.0 C 67 16 146/72 H 97 Room Air 09/02/23 10:04 69 09/02/23 08:00 80 09/02/23 07:39 36.8 C 85 16 160/80 H 95 Room Air Laboratory Results 09/02/23 07:03 09/02/23 07:03 PG Care Time/CCT Total # of Minutes Spent Total Time Spent with Patient: Total time spent is greater than 50% in coordination of care (as documented) at patient's floor/unit and/or counseling patient: Coding Level of Care Code 47838 SUB INP/OBS CARE 2/35MIN Diagnoses DKA (diabetic ketoacidosis) E11.10 ROHIT (acute kidney injury) N17.9 Atrial fibrillation with RVR I48.91 SIRS (systemic inflammatory response syndrome) R65.10 Acute hyperkalemia E87.5 Metabolic acidosis, increased anion gap E87.29 Elevated troponin R79.89 Legally blind H54.8 Acquired hypothyroidism E03.9 Hypothyroidism type: acquired GERD (gastroesophageal reflux disease) K21.9 (9) Hypothyroidism Hypothyroidism type: acquired Qualified Code(s): E03.9 - Hypothyroidism, unspecified
[2023-09-02] MEDS: BRIMONIDINE TARTRATE 0.2% 5ML OP SCH (21:04)
[2023-09-02] MEDS ORDERED: Nursing to Pharmacy Communication SCH (21:30)
[2023-09-02] MEDS: BRINZOLAMIDE (AZOPT) OPS 10 ML BTL OP SCH (21:39)
[2023-09-03 07:36] LABS: BUN Creatinine Ratio 18.1 (10-20); Creatinine Clr Calc Pharmacy 88.4 ml/min; Est GFR (African American) 99.8 ml/min; Est GFR (Non-African American) 86.1 ml/min; Potassium 3.6 mmol/L (3.5-5.1)
--- NOTE | 2023-09-03 20:04 | Hospitalist Progress Note ---
Date of Service September 03, 2023 Assessment & Plan (1) DKA (diabetic ketoacidosis): Plan: required ICU admission at onset of hospitalization due to severity of the DKA. treated in customary fashion with insulin drip, IV fluids, etc. DKA resolved, transitioned off insulin drip 08/30. Now on basal-bolus insulin; requiring 10-15 units of novolog/meal; back on home dose of lantus 25 units daily. 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 Will reach out to them tomorrow for guidance. Appreciate pharmacy glycemic team assistance. Recent a1c - 8.5% (2) ROHIT (acute kidney injury): Plan: 2nd ATN (granular casts on u/a at admission) Peak Cr - 2.3 now <1 (3) Atrial fibrillation with RVR: Plan: New diagnosis. Echo with preserved EF 60-65% without valvular disease. Initiated on meto succ 25mg daily + Eliquis 5mg BID. (4) SIRS (systemic inflammatory response syndrome): Plan: Resolved / blood cultures + for corynebacterium --> likely contamination (5) Acute hyperkalemia: Plan: Secondary to DKA resolved has not recurred (6) Elevated troponin: Plan: peak troponin 110 at minimum this was 2nd to myocardial demand ischemia in setting of severe DKA, a.fib, etc echo with preserved EF and normal LV wall motion (7) Legally blind: (8) Hypothyroidism: Plan: TSH 5.408, improving since December 2022 Continue his usual levothyroxine Managed by [facility] (9) GERD (gastroesophageal reflux disease): Plan: cont PPI (10) Acute metabolic encephalopathy: Plan: 2nd to DKA, etc resolved (11) Rib fractures: Plan: 07/2023 multiple on right - #6-#10 check 25-OH vit D level am pain is controlled at this time (12) Diabetes mellitus type 1, uncontrolled: Plan: see #1 above I am concerned that after his d/c from [facility] to home he was not checking sugars, was not taking his insulin correctly, etc will reach out to his primary manager metal tomorrow (13) Hypoglycemia unawareness in type 1 diabetes mellitus: (14) Anemia: Plan: check FE studies, B12 and folate in am Plan PT, OT both advising another inpatient rehab stay I called & spoke with pt's by phone this evening we discussed his recurrent hospitalizations, the concerns I have for his noncompliance with his insulins, etc discussed the PT/OT recommendations for another rehab stay - she supports him returning to rehab will d/w social work in am Admission and Anticipated Discharge Date Admission Date: August 30, 2023 Subjective no events overnight sitting in chair comfortably offers no complaints asks when he can go home voices that he is not really interested in going back to rehab, especially [facility] he didn't like the food there told him that PT/OT here feel he should go back to rehab he states his is supportive of him coming home he did mention that his is currently ill with GI illness Review of Systems Review of Systems: gen - no fevers or chills cv - no chest pain pulm - no dyspnea or BUCKLEY GI - no abd pain or N/V Physical Exam Physical Exam: gen - NAD HENT - MMM, no thrush; hearing impaired neck - no JVD heart - RRR, s1 s2, no murmur lungs - scattered b/l fine/dry rales posteriorly, otherwise CTA b/l abd - soft NT ND BS+ ext - no edema, pulses 2+ b/l skin - no ulcers on feet but severe xerosis all portions of feet and distal shins Results & Data Results & Data Vital Signs (Past 12 Hours) Vital Signs Temp Pulse Pulse Resp BP Pulse Ox O2 Del Method 09/03/23 19:13 37 C 90 18 167/70 H 97 Room Air 09/03/23 16:00 84 09/03/23 15:44 37.2 C 80 18 149/72 H 97 Room Air 09/03/23 12:13 36.9 C 78 16 145/55 H 94 Room Air 09/03/23 08:10 37.0 C 80 16 180/75 H 95 Room Air Laboratory Results Laboratory Results - last 24 hr 09/02/23 09/03/23 09/03/23 20:28 06:40 08:22 Sodium 139 Potassium 3.6 Chloride 108 H Carbon Dioxide 26 Anion Gap 5 BUN 15 Creatinine 0.83 Est Cr Clr Drug Dosing 88.4 Est GFR ( Amer) 99.8 Est GFR (Non-Af Amer) 86.1 BUN/Creatinine Ratio 18.1 Glucose 160 H POC Glucose 168 H 188 H Calcium 8.0 L 09/03/23 09/03/23 12:15 16:53 Sodium Potassium Chloride Carbon Dioxide Anion Gap BUN Creatinine Est Cr Clr Drug Dosing Est GFR ( Amer) Est GFR (Non-Af Amer) BUN/Creatinine Ratio Glucose POC Glucose 185 H 125 H Calcium PG Care Time/CCT Total # of Minutes Spent Total Time Spent with Patient: Total time spent is greater than 50% in coordination of care (as documented) at patient's floor/unit and/or counseling patient: Coding Level of Care Code 78132 SUB INP/OBS CARE 3/50MIN Diagnoses DKA (diabetic ketoacidosis) E11.10 ROHIT (acute kidney injury) N17.9 Atrial fibrillation with RVR I48.91 SIRS (systemic inflammatory response syndrome) R65.10 Acute hyperkalemia E87.5 Elevated troponin R79.89 Legally blind H54.8 Acquired hypothyroidism E03.9 Hypothyroidism type: acquired GERD (gastroesophageal reflux disease) K21.9 Acute metabolic encephalopathy G93.41 Rib fractures S22.49XA Diabetes mellitus type 1, uncontrolled E10.65 Hypoglycemia unawareness in type 1 diabetes mellitus E10.649 Anemia D64.9 (8) Hypothyroidism Hypothyroidism type: acquired Qualified Code(s): E03.9 - Hypothyroidism, unspecified
[2023-09-04 07:22] LABS: Troponin I High Sensitivity 348.8 pg/ml (0-20)
[2023-09-04 07:35] LABS: Ferritin 58.1 ng/ml (8-388)
[2023-09-04 08:19] LABS: Folate (Folic Acid),Ser orPlas 10.64 ng/ml (>5.38)
[2023-09-04] MEDS: CHOLECALCIFEROL 125 MCG (5,000 UNITS) TAB PO SCH (11:10)
--- NOTE | 2023-09-04 12:27 | Pharmacy Report ---
Pharmacy Glycemic Short Note 2 - Date of Service September 04, 2023 - Glycemic Short BSG Results (Last 24 hours): 09/03/23 09/03/23 09/04/23 16:53 20:16 08:19 POC Glucose 125 H 181 H 183 H 09/04/23 12:11 POC Glucose 160 H OUTPATIENT ANTIDIABETIC REGIMEN: * Lantus 25 units SC daily * Novolog ACHS: CF 30, CR 5 * HbA1c: 8.5% (08/15/23) ASSESSMENT: 09/03: * Kvng received 55 units of insulin yesterday (25 were basal) * Fasting BSGs still above goal range, but downtrending after basal increase 08/31. Historically he is very sensitive to insulin adjustments and trends are not always apparent immediately, will slightly increase basal insulin tomorrow if fasting BSG still above goal range. * No change to Novolog at this time, post-prandial BSGs acceptable yesterday. * No glycemic stressors noted at this time, awaiting discharge disposition. 09/01 * 68 units SQ insulin given over last 24 hours while tolerating a diet * Fasting BSGs elevated last 2 days (significant change vs prior days) - suspect patient may have eaten prior to BSG checks or snacked overnight given HS BSGs at goal. Patient unsure if he ate prior to BSG checks. Will continue current Lantus dose for now as there is danger in uptitrating basal dose given uncertainty of "fasting" values. * Post-prandial BSGs improved with current Novolog doses - continue 08/31: * Kvng received 41 units of insulin yesterday, 20 basal + 21 bolus. BSGs were: 704-48-363-83 mg/dL. * Fasting BSG up to 293 mg/dL today. No report of snacking. Provider wants to increase to home dose of 25 units daily. * No change to Novolog. 08/30: * 73 yo M admitted on 08/30/23 secondary to DKA. Pharmacy has been consulted to assist with inpatient glycemic management. Patient is a Type 1 diabetic as an outpatient. Please refer to outpatient regimen and most recent HbA1c above. * Started on insulin drip for DKA yesterday afternoon. Unable to calculate true usage as first bag of insulin had questions if adsorption occurred because rates were extremely high without improvement in BSGs for a T1 diabetic. * Gap closed on AM labs with CO2 and pH normal. Gave 20 units of basal and overlapped with drip for approximately 2 hours this morning. At time of transition, insulin drip was running at 3.8 units/hr and most recent BSG was 95 mg/dL. * Dextrose fluids discontinued. T1DM diet entered for lunch. Patient will be transferred to hospitalist service. * Based on previous admission data from 07/2023 when patient was admitted for same reason, will start Novolog ACHS at CF20,CR5 and order daily basal starting tomorrow. Follow to see if tolerating diet. PLAN FOR INPATIENT GLYCEMIC CONTROL: * Basal insulin * Lantus 25 units SC Q AM (pt's home dose) - continue for now, follow fasting BSGs * Bolus insulin * NovoLog per scale ACHS or Q6hrs while NPO * Goal Range: Low 120 mg/dL - High 160 mg/dL * Correction Factor: 20 mg/dL/unit * Nutritional / Prandial insulin per carb ratio of 1 unit per 5 grams CHO consumed
--- NOTE | 2023-09-04 20:49 | Hospitalist Progress Note ---
Date of Service September 04, 2023 Assessment & Plan (1) DKA (diabetic ketoacidosis): Plan: required ICU admission at onset of hospitalization due to severity of the DKA. treated in customary fashion with insulin drip, IV fluids, etc. DKA resolved, transitioned off insulin drip 08/30. Now on basal-bolus insulin; requiring 10-15 units of novolog/meal; back on home dose of lantus 25 units daily. Follows with DM clinic in endo. Appreciate pharmacy glycemic team assistance. Recent a1c - 8.5% After discharge needs to get back with [facility] Endo clinic (2) ROHIT (acute kidney injury): Plan: 2nd ATN (granular casts on u/a at admission) Peak Cr - 2.3 now <1 resolved (3) Atrial fibrillation with RVR: Plan: New diagnosis. Echo with preserved EF 60-65% without valvular disease. Initiated on meto succ 25mg daily + Eliquis 5mg BID. Back in NSR and remains in such. (4) SIRS (systemic inflammatory response syndrome): Plan: Resolved / blood cultures + for corynebacterium --> likely contamination no Rx needed (5) Acute hyperkalemia: Plan: Secondary to DKA resolved has not recurred (6) Elevated troponin: Plan: troponin 110 early in the stay but was not followed up to see the peak thus, trop rechecked this am -- 348 at minimum this was 2nd to myocardial demand ischemia in setting of severe DKA, a.fib, etc echo with preserved EF and normal LV wall motion I took an extensive history today -- prior to this admission and during this admission -- NO CHEST PAIN, NO DYSPNEA AT REST or with exertion, no L arm pain or jaw pain with activity, no diaphoresis or other CV symptoms will d/w cardiology to see if anything else is needed (outpatient stress test, etc) (7) Legally blind: (8) Hypothyroidism: Plan: TSH 5.408, improving since December 2022 Continue his usual levothyroxine Managed by [facility] (9) GERD (gastroesophageal reflux disease): Plan: cont PPI (10) Acute metabolic encephalopathy: Plan: 2nd to DKA, etc resolved (11) Rib fractures: Plan: 07/2023 multiple on right - #6-#10 checked 25-OH vit D level am - low - see below pain is controlled at this time (12) Diabetes mellitus type 1, uncontrolled: Plan: see #1 above I am concerned that after his d/c from [facility] to home he was not checking sugars, was not taking his insulin correctly, etc (13) Hypoglycemia unawareness in type 1 diabetes mellitus: (14) Anemia: Plan: b12/folate wnl Fe studies c/w Fe deficiency supplement (15) Iron deficiency: Plan: ferritin low-normal transferrin sat <20% supplement iron deserves w/u post-discharge - send to GI (16) Vitamin D deficiency: Plan: 17.2 level today had been taking calcitriol d/c calcitriol change to vit D 5000 IU daily (17) Demand ischemia of myocardium: Plan: troponin today >300 this is in the absence of any cardiovascular symptoms at minimum his troponin is due to demand ischemia unfortunately we do not know how high the troponin actually went since there was a 5-day gap recheck trop in am to ensure it is coming down will d/w cardiology any next steps for this fortunately, again, no cardiovascular symptoms at this time Plan PT, OT both advising another inpatient rehab stay group meeting between myself, patient, by phone, and his case management associate Esme patient likely agreeable to [facility] for rehab dispo planning Admission and Anticipated Discharge Date Admission Date: August 30, 2023 Subjective no events overnight feels well today "I'm ready to go home" we had lengthy discussion about his elevated troponin earlier in the stay and the level today over the last few months he denies ANY dyspnea on exertion denies ANY chest pain at rest or with exertion denies personal h/o CAD no family history of CAD tele - wnl during my 2nd visit I was joined by Esme from case management we had his on speaker phone we discussed short-term rehab highly encouraged him to go back to such nursing staff report concerns of him going home supportive of rehab we discussed [facility] Review of Systems Review of Systems: gen - feels well, no fevers, good appetite cv - no chest pain, orthopnea, edema pulm - no dyspnea or BUCKLEY GI - no abd pain Physical Exam Physical Exam: gen - NAD, sitting in chair, looks good HENT - MMM, no thrush; hearing impaired neck - no JVD heart - RRR, s1 s2, no murmur lungs - scattered b/l fine/dry rales posteriorly, otherwise CTA b/l abd - soft NT ND BS+ ext - no edema, pulses 2+ b/l skin - severe xerosis all portions of distal shins Results & Data Results & Data Vital Signs (Past 12 Hours) Vital Signs Temp Pulse Pulse Resp BP BP Pulse Ox 09/04/23 19:22 37 C 89 18 154/74 H 97 09/04/23 15:42 37 C 76 17 155/72 H 97 09/04/23 14:55 75 09/04/23 11:28 36.7 C 75 17 159/73 H 98 09/04/23 10:31 86 O2 Del Method 09/04/23 19:22 Room Air 09/04/23 15:42 Room Air 09/04/23 14:55 09/04/23 11:28 Room Air 09/04/23 10:31 Laboratory Results Laboratory Results - last 24 hr 09/04/23 09/04/23 09/04/23 06:29 08:19 12:11 POC Glucose 183 H 160 H Iron 30 L TIBC 226 L Unsaturated IBC 196 Transferrin % Sat 13 L Ferritin 58.1 Troponin I High Sens 348.8 H* Vitamin B1 Pending Vitamin B12 1494 H 25-OH Vitamin D Total 17.2 L Folate 10.64 PG Care Time/CCT Total # of Minutes Spent Total Time Spent with Patient: Total time spent is greater than 50% in coordination of care (as documented) at patient's floor/unit and/or counseling patient: Coding Level of Care Code 11752 SUB INP/OBS CARE 2/35MIN Diagnoses DKA (diabetic ketoacidosis) E11.10 ROHIT (acute kidney injury) N17.9 Atrial fibrillation with RVR I48.91 SIRS (systemic inflammatory response syndrome) R65.10 Acute hyperkalemia E87.5 Elevated troponin R79.89 Legally blind H54.8 Acquired hypothyroidism E03.9 Hypothyroidism type: acquired GERD (gastroesophageal reflux disease) K21.9 Acute metabolic encephalopathy G93.41 Rib fractures S22.49XA Diabetes mellitus type 1, uncontrolled E10.65 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
[2023-09-05 07:35] LABS: BUN Creatinine Ratio 11.3 (10-20); Creatinine Clr Calc Pharmacy 90.3 ml/min; Est GFR (African American) 101.3 ml/min; Est GFR (Non-African American) 87.4 ml/min; Potassium 3.7 mmol/L (3.5-5.1)
[2023-09-05 07:52] LABS: Troponin I High Sensitivity 248.8 pg/ml (0-20)
[2023-09-05] MEDS: LANTUS PER UNIT CHARGE SC SCH (09:21)
[2023-09-05] MEDS: LOSARTAN POTASSIUM 25 MG TAB PO SCH (11:37)
[2023-09-05] MEDS: APIXABAN 5 MG TABLET PO SCH (15:07)
--- NOTE | 2023-09-05 19:36 | Hospitalist Progress Note ---
Date of Service September 05, 2023 Assessment & Plan (1) Atrial fibrillation with RVR: Plan: New diagnosis earlier this admission. Echo with preserved EF 60-65% without valvular disease. Initiated on meto succ 25mg daily + Eliquis 5mg BID. Has been NSR most of the stay since, then had a.fib today for about 3 hours. Was rate-controlled and had NO symptoms while in fib. Cont BB and Eliquis. (2) DKA (diabetic ketoacidosis): Plan: required ICU admission at onset of hospitalization due to severity of the DKA. treated in customary fashion with insulin drip, IV fluids, etc. DKA resolved, transitioned off insulin drip 08/30. Now on basal-bolus insulin; requiring 10-15 units of novolog/meal; lantus 26 units daily. Follows with DM clinic in endo. Appreciate pharmacy glycemic team assistance. Recent a1c - 8.5% After discharge needs to get back with [facility] Endo clinic (3) ROHIT (acute kidney injury): Plan: 2nd ATN (granular casts on u/a at admission) Peak Cr - 2.3 now <1 resolved (4) SIRS (systemic inflammatory response syndrome): Plan: Resolved / blood cultures + for corynebacterium --> likely contamination no Rx needed (5) Acute hyperkalemia: Plan: Secondary to DKA resolved has not recurred (6) Elevated troponin: Plan: troponin 110 early in the stay but was not followed up to see the peak thus, trop rechecked 09/04/23 -- was 348 at minimum this was 2nd to myocardial demand ischemia in setting of severe DKA, a.fib, etc echo with preserved EF and normal LV wall motion I took an extensive history -- prior to this admission and during this admission -- NO CHEST PAIN, NO DYSPNEA AT REST or with exertion, no L arm pain or jaw pain with activity, no diaphoresis or other CV symptoms repeat trop today noted (now 248) I spoke with cardiology informally -- given stable EKG (no ischemic changes), stable echo, and NO cardiopulmonary symptoms no need for ischemic evaluation at this time (7) Legally blind: (8) Hypothyroidism: Plan: TSH 5.408, improving since December 2022 Continue his usual levothyroxine Managed by [facility] Endo (9) GERD (gastroesophageal reflux disease): Plan: cont PPI (10) Acute metabolic encephalopathy: Plan: 2nd to DKA, etc resolved (11) Rib fractures: Plan: 07/2023 multiple on right - #6-#10 checked 25-OH vit D level - low - see below pain is controlled at this time (12) Diabetes mellitus type 1, uncontrolled: Plan: see #1 above I am concerned that after his d/c from [facility] to home he was not checking sugars, was not taking his insulin correctly, etc (13) Hypoglycemia unawareness in type 1 diabetes mellitus: (14) Anemia: Plan: b12/folate wnl Fe studies c/w Fe deficiency supplement (15) Iron deficiency: Plan: ferritin low-normal transferrin sat <20% supplement iron deserves w/u post-discharge - send to GI (16) Vitamin D deficiency: Plan: 17.2 level had been taking calcitriol d/c calcitriol change to vit D 5000 IU daily (17) Demand ischemia of myocardium: Plan: peak HS troponin >300 this is in the absence of any cardiovascular symptoms at minimum his troponin is due to demand ischemia unfortunately we do not know how high the troponin actually went since there was a 5-day gap between previous trop and the peak trop rechecked trop today and it is coming down see #6 above Plan PT, OT both advising another inpatient rehab stay patient agreeable to [facility] for rehab plan d/c tomorrow am left message for his on her voicemail 09/05/23 Admission and Anticipated Discharge Date Admission Date: August 30, 2023 Subjective this am on tele patient had about 3 hours of rate-controlled a.fib rates were 60s/70s patient rhythm unaware - NO palpitations, cp, dyspnea spontaneously converted back to NSR there was suspicion he was having a.fib runs earlier this admission no new events overnight feels well eating well Review of Systems Review of Systems: CV - no cp, no orthopnea, no edema pulm - no dyspnea or [place] Physical Exam Physical Exam: gen - NAD, sitting in chair, looks great HENT - MMM, no thrush; hearing impaired neck - no JVD heart - irregularly irregular, s1 s2, no murmur lungs - scant b/l fine/dry rales posteriorly, otherwise CTA b/l abd - soft NT ND BS+ ext - no edema, pulses 2+ b/l skin - severe xerosis all portions of distal shins Results & Data Results & Data Vital Signs (Past 12 Hours) Vital Signs Temp Pulse Pulse Resp BP Pulse Ox O2 Del Method 09/05/23 15:39 78 09/05/23 12:10 36.5 C 71 18 137/69 98 Room Air 09/05/23 09:49 Room Air 09/05/23 09:27 76 09/05/23 07:51 37.3 C 79 20 178/79 H 91 Room Air Laboratory Results Laboratory Results - last 24 hr 09/04/23 09/04/23 09/04/23 20:13 20:15 20:16 Sodium Potassium Chloride Carbon Dioxide Anion Gap BUN Creatinine Est Cr Clr Drug Dosing Est GFR ( Amer) Est GFR (Non-Af Amer) BUN/Creatinine Ratio Glucose POC Glucose 305 H* 147 H 127 H 09/05/23 09/05/23 09/05/23 06:55 08:22 12:02 Sodium 139 Potassium 3.7 Chloride 106 Carbon Dioxide 28 Anion Gap 5 BUN 9 Creatinine 0.80 Est Cr Clr Drug Dosing 90.3 Est GFR ( Amer) 101.3 Est GFR (Non-Af Amer) 87.4 BUN/Creatinine Ratio 11.3 Glucose 165 H POC Glucose 181 H 183 H Calcium 9.0 Troponin I High Sens 248.8 H* D 09/05/23 16:51 POC Glucose 104 H Diagnostic Findings EKG - my reading - a.fib, rate <100, flat ST segments diffusely PG Care Time/CCT Total # of Minutes Spent Total Time Spent with Patient: Total time spent is greater than 50% in coordination of care (as documented) at patient's floor/unit and/or counseling patient: Coding Level of Care Code 82196 SUB INP/OBS CARE 2/35MIN Diagnoses Atrial fibrillation with RVR I48.91 DKA (diabetic ketoacidosis) E11.10 ROHIT (acute kidney injury) N17.9 SIRS (systemic inflammatory response syndrome) R65.10 Acute hyperkalemia E87.5 Elevated troponin R79.89 Legally blind H54.8 Acquired hypothyroidism E03.9 Hypothyroidism type: acquired GERD (gastroesophageal reflux disease) K21.9 Acute metabolic encephalopathy G93.41 Rib fractures S22.49XA Diabetes mellitus type 1, uncontrolled E10.65 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
[2023-09-06] MEDS: CARBOHYDRATES FOR HYPOGLYCEMIA PO PRN (05:57)
[2023-09-06 06:20] LABS: BUN Creatinine Ratio 11.9 (10-20); Calcium 9.3 mg/dl (8.6-10.3); Creatinine Clr Calc Pharmacy 85.4 ml/min; Est GFR (African American) 99.3 ml/min; Est GFR (Non-African American) 85.7 ml/min; Potassium 3.8 mmol/L (3.5-5.1)
[2023-09-06] MEDS: LANTUS PER UNIT CHARGE SC SCH (08:51)
[2023-09-06] MEDS: SENNA 8.6 MG TAB PO SCH (08:53)
[2023-09-06] MEDS: POLYETHYLENE (MIRALAX) 17 GM PACK PO SCH (08:53)
[2023-09-06] MEDS: DOCUSATE SODIUM 100 MG CAP PO SCH (08:53)
[2023-09-06] MEDS: NYSTATIN POWDER 15GM BTL EXT SCH (10:23)
--- NOTE | 2023-09-06 11:53 | Discharge Summary ---
Date of Service September 06, 2023 Admission HPI Per Admitting Provider Kvng Yoder is a 73 year old male who presents to the ER with shortness of breath, dehydration, slurred speech. He was recently admitted with a fall and rib fractures in July and was discharged to [facility] for acute rehabilitation. Since discharge from [facility] on August 25 he has not taken any medications. He is unable to tell me why he hasn't taken any medication. His was expecting him to do all his medications. The patient tells me he was not trying to harm himself and wishes to be for full resuscitation. He is a type 1 diabetic. Discharge Exam gen - NAD, sitting in chair, looks great HENT - MMM, no thrush; hearing impaired neck - no JVD heart - irregularly irregular, s1 s2, no murmur lungs - scant b/l fine/dry rales posteriorly, otherwise CTA b/l abd - soft NT ND BS+ ext - no edema, pulses 2+ b/l skin - severe xerosis all portions of distal shins Discharge Data Allergies Allergy/AdvReac Type Severity Reaction Status Date / Time Iodinated Contrast Media Allergy Unknown UNKNOWN Verified 08/29/23 10:28 REACTION iodine Allergy Unknown TOPICAL Verified 08/29/23 10:28 REDNESS AND EDEMA Consultations 08/30/23 14:13 ED Decision to Admit Stat 08/30/23 14:29 Consult Lens Shaper Grinder Routine 08/30/23 15:38 Consult Lens Shaper Grinder Routine Ordered Studies 08/30/23 12:25 CT head/brain wo con Stat 08/30/23 12:38 CT abd pelvis wo con Stat Hospital Course (1) Atrial fibrillation with RVR: New diagnosis earlier this admission. Echo with preserved EF 60-65% without valvular disease. Initiated on meto succ 25mg daily + Eliquis 5mg BID. Has been NSR most of the stay since, then had a.fib today for about 3 hours. Was rate-controlled and had NO symptoms while in fib. Cont BB and Eliquis. (2) DKA (diabetic ketoacidosis): required ICU admission at onset of hospitalization due to severity of the DKA. treated in customary fashion with insulin drip, IV fluids, etc. DKA resolved, transitioned off insulin drip 08/30. Now on basal-bolus insulin; requiring 10-15 units of novolog/meal; lantus 26 units daily. Follows with DM clinic in endo. Appreciate pharmacy glycemic team assistance. Recent a1c - 8.5% After discharge needs to get back with [facility] Endo clinic (3) ROHIT (acute kidney injury): 2nd ATN (granular casts on u/a at admission) Peak Cr - 2.3 now <1 resolved (4) SIRS (systemic inflammatory response syndrome): Resolved / blood cultures + for corynebacterium --> likely contamination no Rx needed (5) Acute hyperkalemia: Secondary to DKA resolved has not recurred (6) Elevated troponin: troponin 110 early in the stay but was not followed up to see the peak thus, trop rechecked 09/04/23 -- was 348 at minimum this was 2nd to myocardial demand ischemia in setting of severe DKA, a.fib, etc echo with preserved EF and normal LV wall motion I took an extensive history -- prior to this admission and during this admission -- NO CHEST PAIN, NO DYSPNEA AT REST or with exertion, no L arm pain or jaw pain with activity, no diaphoresis or other CV symptoms repeat trop today noted (now 248) I spoke with cardiology informally -- given stable EKG (no ischemic changes), stable echo, and NO cardiopulmonary symptoms no need for ischemic evaluation at this time (7) Legally blind: (8) Hypothyroidism: TSH 5.408, improving since December 2022 Continue his usual levothyroxine Managed by [facility] Endo (9) GERD (gastroesophageal reflux disease): cont PPI (10) Acute metabolic encephalopathy: 2nd to DKA, etc resolved (11) Rib fractures: 07/2023 multiple on right - #6-#10 checked 25-OH vit D level - low - see below pain is controlled at this time (12) Diabetes mellitus type 1, uncontrolled: see #1 above I am concerned that after his d/c from [facility] to home he was not checking sugars, was not taking his insulin correctly, etc (13) Hypoglycemia unawareness in type 1 diabetes mellitus: (14) Anemia: b12/folate wnl Fe studies c/w Fe deficiency supplement (15) Iron deficiency: ferritin low-normal transferrin sat <20% supplement iron deserves w/u post-discharge - send to GI (16) Vitamin D deficiency: 17.2 level had been taking calcitriol d/c calcitriol change to vit D 5000 IU daily (17) Demand ischemia of myocardium: peak HS troponin >300 this is in the absence of any cardiovascular symptoms at minimum his troponin is due to demand ischemia unfortunately we do not know how high the troponin actually went since there was a 5-day gap between previous trop and the peak trop rechecked trop today and it is coming down see #6 above Plan PT, OT both advising another inpatient rehab stay patient agreeable to [facility] for rehab plan d/c tomorrow am left message for his on her voicemail 09/05/23 Discharge Plan Discharge Items Patient Disposition: Transfer [facility] Reason For Visit: DKA Discharge Diagnosis: 1. diabetic ketoacidosis (DKA) - resolved 2. uncontrolled type 1 diabetes - has had such for decades - hemoglobin a1c 8.5% 3. new diagnosis of atrial fibrillation 4. hypertension 5. vitamin D deficiency - 25 OH vit D level 17 6. hypothyroidism 7. hearing impairment 8. legal blindness 9. candidal rash of groin 10. constipation 11. hyperlipidemia 12. elevated troponin level - likely myocardial demand ischemia in setting of severe DKA, new onset atrial fibrillation, etc; low suspicion for ACS; echocardiogram normal 13. deconditioning 14. right-sided rib fractures in 07/2023 -- seventh through 10th ribs; due to fall 15. pulmonary nodules on CT chest - stable over time Activity: Resume your previous activity Non-emergency contact: Primary Care Provider and Specialist Call non-emergency contact if: you have any medication questions, your symptoms worsen and you have a fever Follow-up/Referrals: Zacarias Silav PA-C [Physician Manufactured Buildings Supervisor] - (Mr Silva or any cardiology provider - within the next few weeks; new diagnosis of atrial fibrillation, coronary calcifications on chest CT, etc.) Daniel Bowser MD [Physician] - (ideally within 1-2 weeks due to severe DKA ) Belinda Moreira MD [Primary Care Provider] - (within 1 week of discharge from rehab ) Diet: Carb Count or DM1 Addtl Attending Provider Instructions: Mr Yoder was hospitalized due to severe DKA requiring a brief stay in the ICU. He received customary treatment including IV insulin, fluids, etc. We did not find any infectious cause. His reports that after getting out of acute rehab and returning home in July 2023 he simply stopped taking all of his insulins. Our pharmacy glycemic team was involved in adjusting his insulins. His stay was complicated by several runs of atrial fibrillation. He was asymptomatic from the [facility]. His heart rates are controlled when he does go into [facility]. He has been started on Eliquis for anticoagulation purposes. The majority of the time he is in normal rhythm. Echocardiogram was normal with preserved ejection fraction. His rib fractures that he had experienced in July are largely healed and not causing pain at this time. Follow-up - PCP, Endocrinology, and Cardiology via the [facility]; he would be a new patient to cardiology; he previously has been following with endocrinology for his type 1 diabetes Recheck CBC, BMP, and magnesium in 4-5 days for stability; results to medical imaging specialist PT, OT services - eval and treat Return to [facility] if - * he has fever over 100 degrees * has chest pain or shortness of breath * uncontrolled diabetes - persistently high sugars (>350) or persistently low sugars (less than 70) * has bleeding from any source as listed below * any other concerns It was our pleasure to care for Mr Yoder! -Dr Belle Reyes Welt Rougher Provider Instructions: Blood thinner (anticoagulant) Medication Instructions: Your atrial fibrillation condition is typically treated with an anticoagulant. Anticoagulants will thin your blood to help prevent the formation of clots in your heart. By thinning the blood you reduce your risk of stroke from atrial fibrillation. Your blood thinner is Eliquis - 5mg twice daily. * You should take your medication exactly as directed. * Never skip a dose. * Never take a double dose. If you miss a dose, take it as soon as you remember. Call your Primary Care doctor if you experience any of the following: * Pain that worsens when you are active or when you stand still for a long time * Chest Pain * Sudden Shortness of Breath * Rapid or pounding heart beat * Fainting * Dizziness * Cough with blood or bloody sputum * Sweating more than normal * Bruises * Heavy or uncontrolled bleeding * Blood in your urine, stool or vomit * Black or tarry stools * Heavy nose bleeding Pending Studies at Discharge: No Stand-Alone Forms: My [facility] Skilled Items Patient informed of condition?: Yes DNR: No Discharge Level of Care: Skilled Communicable Disease: No Discharge Prognosis: Stable Lines: None Urinary Catheter: No Medications and DC Order Prescriptions: New losartan 25 mg Tablet 25 mg PO QAM Qty: 30 2RF docusate sodium 100 mg Capsule 100 mg PO BID Qty: 30 0RF metoprolol succinate 25 mg Tablet Extended Release 24 Hr 25 mg PO QAM Qty: 30 2RF Eliquis 5 mg Tablet 5 mg PO BID Qty: 60 2RF polyethylene glycol 3350 [Miralax] 17 gram Powder In Packet 17 g PO DAILY Qty: 30 0RF sennosides [Senokot] 8.6 mg Tablet 17.2 mg PO QAM Qty: 60 0RF nystatin [Nystop] 100,000 unit/gram Powder 1 applic EXT TID Qty: 45 0RF Rx Instructions: apply to groin/scrotal area x 7 days cholecalciferol (vitamin D3) 125 mcg (5,000 unit) Tablet 125 mcg PO QAM Qty: 30 0RF bisacodyl [Dulcolax (bisacodyl)] 10 mg suppository 10 mg KS DAILY PRN (Reason: constipation) Qty: 12 0RF Continued escitalopram oxalate 20 mg tablet 20 mg PO DAILY Qty: 90 3RF atorvastatin 80 mg tablet 80 mg PO QPM Qty: 90 3RF Rx Instructions: for cholesterol (DME) pen needle, diabetic [BD Ultra-Fine Verito Pen Needle] 32 gauge x 5/32" needle See Rx Instructions .ROUTE .MEDSUPPLY Qty: 500 3RF Rx Instructions: Use 5 daily to inject insulin cyanocobalamin (vitamin B-12) 2,500 mcg tablet 2,500 mcg PO DAILY (DME) Dexcom G6 Sensor Device See Rx Instructions .Route Qty: 3 0RF Rx Instructions: As directed omeprazole 40 mg capsule,delayed release(DR/EC) 40 mg PO DAILY Qty: 30 2RF insulin glargine 100 unit/mL solution 25 unit subcut DAILY multivitamin Tablet 1 tab PO QAM Simbrinza 1-0.2 % Drops,Suspension 1 drp OPHTHALMIC (EYE) BID levothyroxine 50 mcg tablet See Rx Instructions .ROUTE .COMPLEX Rx Instructions: Take 200mcg w/ 50mcg to equal 250mcg once every morning levothyroxine 200 mcg tablet See Rx Instructions .ROUTE .COMPLEX Rx Instructions: Take 200mcg w/ 50mcg to equal 250mcg once every morning Changed tramadol 50 mg Tablet 50 mg PO Q6H PRN (Reason: pain) Qty: 14 0RF insulin aspart U-100 [Novolog U-100 Insulin aspart] 100 unit/mL Solution See Rx Instructions .ROUTE .COMPLEX Qty: 10 0RF Rx Instructions: -Goal BSG Range: Low 120 mg/dL, High 160 mg/dL --Correction Factor: 20 mg/dL/unit --Carbohydrate ratio = 6 g/unit Use novolog at MEAL TIMES only; DO NOT give at bedtime. acetaminophen [Tylenol Extra Strength] 500 mg Tablet 1,000 mg PO Q8H PRN (Reason: pain) Qty: 30 0RF Discontinued calcitriol 0.5 mcg capsule 0.5 mcg PO DAILY Qty: 90 1RF oxycodone 5 mg Tablet 5 mg PO Q8 PRN (Reason: pain) Qty: 10 0RF Discharge Orders: Discharge Order (Routine); Ordered 09/06/23 Ordered By: Kiran Duran/Other Patient Handouts: AFib Preventing Stroke, AFib Admission Data Admit Date/Time: 08/30/23 14:22 Attending Provider: Kiran Odonnell Admit Provider: Kiran Davis Primary Care Provider: Belinda Moreira Other Providers: Zane Le; Kiran Davis; Vianney Spring [facility]; [place],[facility] Coding Diagnoses Atrial fibrillation with RVR I48.91 DKA (diabetic ketoacidosis) E11.10 ROHIT (acute kidney injury) N17.9 SIRS (systemic inflammatory response syndrome) R65.10 Acute hyperkalemia E87.5 Elevated troponin R79.89 Legally blind H54.8 Acquired hypothyroidism E03.9 Hypothyroidism type: acquired GERD (gastroesophageal reflux disease) K21.9 Acute metabolic encephalopathy G93.41 Rib fractures S22.49XA Diabetes mellitus type 1, uncontrolled E10.65 Hypoglycemia unawareness in type 1 diabetes mellitus E10.649 Anemia D64.9 Iron deficiency E61.1 Vitamin D deficiency E55.9 Demand ischemia of myocardium I24.89
--- NOTE | 2023-09-07 00:02 | Electrocardiogram Report ---
Test Reason : Blood Pressure : / mmHG Vent. Rate : 063 BPM Atrial Rate : 300 BPM P-R Int : 000 ms QRS Dur : 092 ms QT Int : 440 ms P-R-T Axes : 000 044 039 degrees QTc Int : 450 ms Atrial fibrillation /flutter Nonspecific T wave abnormality Abnormal ECG When compared with ECG of 31-AUG-2023 07:33, Atrial fibrillation /flutter has replaced Sinus rhythm Confirmed by Xavier Vasquez ([id number]) on 09/07/2023 12:02:08 AM Referred By: REFERRED SELF Confirmed By:Xavier Vasquez
== END 2023-09-06 14:42 | DRG 637 ==
LOC: ED 12:01 → SUATTDRO 14:22 → 1E 14:22 → 2N 08-31 15:00

== ENCOUNTER 2024-03-19 15:07 | Inpatient (IN) ==
[2024-03-19 15:53] LABS: Basophils # (auto) 0.03 K/uL (0.00-0.20); Basophils % (auto) 0.4 %; Hematocrit (blood only) 35.7 % (42.0-52.0); Hemoglobin 10.2 g/dl (14.0-18.0); Immature Granulocytes # (auto) 0.06 K/uL (0.01-0.20); Immature Granulocytes % (auto) 0.8 %; Lymphocytes # (auto) 0.57 K/uL (1.20-3.40); Lymphocytes % (auto) 7.8 %; Mean Corpuscular Hemoglobin 27.1 pg (25.0-34.0); Mean Corpuscular Hgb Conc 28.6 g/dL (32.0-36.0); Mean Corpuscular Volume 94.7 fL (80.0-100.0); Mean Platelet Volume 11.1 fL (9.4-12.4); Monocytes # (auto) 0.28 K/uL (0.11-0.59); Monocytes % (auto) 3.8 %; Neutrophils # (auto) 6.39 K/uL (1.40-6.50); Neutrophils % (auto) 87.2 %; Platelet Count 209 K/uL (130-400); RDW Coefficient of Variation 15.9 % (11.5-14.5); RDW Standard Deviation 55.7 fL (36.4-46.3); Red Blood Count 3.77 M/uL (4.70-6.10); White Blood Count 7.33 K/ul (4.8-10.8)
[2024-03-19 16:09] LABS: iSTAT Blood Urea Nitrogen 37 mg/dl (7-18); iSTAT Carbon Dioxide 9 mmol/L (24-31); iSTAT Chloride 101 mmol/L (101-112); iSTAT Creatinine 1.5 mg/dl (0.6-1.3); iSTAT Glucose > 700 mg/dl (70-99); iSTAT Hematocrit 34 % (42-52); iSTAT Hemoglobin 11.6 g/dl (14.0-18.0); iSTAT Ionized Calcium 1.21 mmol/l (1.12-1.32); iSTAT Potassium 7.1 mmol/L (3.3-5.0); iSTAT Sodium 126 mmol/L (135-144)
[2024-03-19 16:23] LABS: Prothrombin Time 10.5 Seconds (9.0-12.0)
[2024-03-19 16:53] LABS: Albumin Globulin Ratio 1.5 (0.9-2); Albumin Level 4.3 gm/dl (3.4-5.0); BUN Creatinine Ratio 19.8 (10-20); Bilirubin,Total 0.4 mg/dl (0.2-1.0); Calcium 9.4 mg/dl (8.6-10.3); Creatinine Clr Calc Pharmacy 42.7 ml/min; Globulin 2.9 gm/dl (2.5-4.0); Magnesium 2.4 mg/dl (1.7-2.4); Potassium 6.4 mmol/L (3.5-5.1); Total Protein 7.2 gm/dl (6.0-8.3); Troponin I High Sensitivity 17.3 pg/ml (0-20)
[2024-03-19] MEDS ORDERED: GLUCOSE 40% GEL 15 GM TUBE PO PRN (16:57)
[2024-03-19] MEDS ORDERED: GLUCOSE 10 TAB/TUBE PO PRN (16:57)
[2024-03-19] MEDS ORDERED: GLUCAGON FOR INJ 1 MG VIAL SQ PRN (16:57)
[2024-03-19] MEDS ORDERED: STAT IV Infusion **Titration per Protocol STA (16:57)
[2024-03-19] MEDS ORDERED: CARBOHYDRATES FOR HYPOGLYCEMIA PO PRN (16:57)
[2024-03-19] MEDS: SODIUM CHLORIDE 0.9% 2,000 ML IV ONE (17:11)
[2024-03-19 17:25] LABS: Appearance Urine Clear (Clear); Bacteria Urine Automated None Seen (None Seen); Bilirubin Urine Negative (Negative); Blood Urine Negative (Negative); Color Urine Yellow; Epithelial Cell Urine Auto 0-2 /hpf (0-2); Glucose Urine UA 3+ (Negative); Ketones Urine 3+ (Negative); Leukocyte Esterase Urine Negative (Negative); Nitrite Urine Negative (Negative); Protein Urine 1+ (Negative); RBC Urine Automated 0-2 /hpf (0-2); Specific Gravity Urine 1.023 (1.000-1.030); Urobilinogen Urine Negative (Negative); WBC Urine Automated 0-5 /hpf (0-5)
--- NOTE | 2024-03-19 17:35 | Emergency Department Note ---
Impression & Plan DKA (diabetic ketoacidosis), ROHIT (acute kidney injury), Acute dehydration, Fall from standing, Elevated lactic acid level ED Provider Note HISTORY OF PRESENT ILLNESS: Patient is a 73-year-old male presenting with hyperglycemia. Patient reportedly was standing at the kitchen sink washing his hands when he felt very unsteady and fell to the side, landing on his right side and striking his head. No reported loss of consciousness. Patient states that he did not feel lightheaded or have any chest pain prior to the fall. called EMS and was concerned that the patient is dehydrated. Reports the patient has not ate or drink anything today. He is a type I diabetic and had a fingerstick glucose reading as high for EMS. Patient reports he is normally supposed to take 26 units of Lantus at around noon but he did not take any today. He states he has not take any insulin today. He reports some blurred vision over the last few days and urinary frequency. Denies any abdominal pain, nausea or vomiting. ROS: as above PHYSICAL EXAM: Constitutional: Patient appears in no acute distress. HENT: Head: Normocephalic. Abrasion noted to the top of the head. Eyes: EOMI, PERRL Mouth/Throat: Mucous membranes moist. Neck: Trachea midline. Neck supple. Cardiovascular: RRR, No murmurs, rubs or gallops. Intact distal pulses. Pulmonary/Chest: No respiratory distress. Breath sounds clear and equal bilaterally. No wheezes or rales. Abdominal: Abdomen soft, no tenderness, rebound or guarding. Musculoskeletal: No edema, tenderness or deformity noted. Skin: Warm and dry. No rash, erythema, pallor or cyanosis Psychiatric: Appropriate mood and affect for situation. Neurological: Alert and keenly responsive. CN II-XII grossly intact, moving all extremities equally and fully. MDM: - Vitals signs stable. POC glucose >600 on arrival. - History obtained via patient. History as above. - Chronic conditions affecting care: DM-1; HTN; hypothyroidism; HLD; CAD; GERD; paroxysmal Afib (on Eliquis) - Differential diagnoses include, but are not limited to: DKA; HHS; electrolyte abnormality; ACS; dysrhythmia; intracranial hemorrhage - Order placed for continuous cardiac monitoring. At this time, monitor showed rate of 88 bpm with normal sinus rhythm, per my interpretation. - External medical records reviewed. Wellness visit note dated 03/17/2024 was reviewed. Patient was seen in clinic for his multiple medical problems. He has been having recurrent falls at home. It is noted the patient has a history of medical nonadherence. - EKG interpreted by myself showed normal sinus rhythm. Rate 86 bpm. QT 422. No acute ischemic changes. - Laboratory workup interpreted by myself showed normal WBC; anemia (Hgb 10.2); normal PT/INR; hyperkalemia (K 6.4); hyponatremia (Na 127 - when corrected for hyperglycemia sodium is normal); ROHIT (Cr 1.67); hyperglycemia (glucose 791); normal troponin; normal lipase; normal liver function; elevated anion gap (27); elevated lactate (2.3) - UA negative for infection. Noted to have ketonuria and glucosuria. - VBG showed metabolic acidosis (pH 7.00; hCO3 4) - Patient given 2L NS in ER. Started on insulin drip - CT head wo contrast negative for acute intracranial pathology. - Discussion was had with geriatric case manager about patient's case and need for admission - Hospitalist, Dr. Leal, consulted for admission [facility]. I have personally spent 43 minutes of critical care time in the direct management of this patient. This includes bedside care, interpretation of diagnostic studies, and testing, discussion with consultants, patient, and family members, and other required patient management activities. This 43 minutes is in excess of all separately billable procedures. ASSESSMENT AND PLAN: Diagnosis: Diabetic ketoacidosis; ROHIT; acute dehydration; fall from standing; elevated lactic acid level Plan: Admit Past Med/Surg History Problem List (Updated 03/19/24 @ 18:44 by Regine Leal MD) Hyperkalemia DKA (diabetic ketoacidosis) (Acute) Type 1 diabetes mellitus with obesity Iron deficiency anemia Paroxysmal atrial fibrillation Low back pain Recurrent falls Coronary artery calcification seen on CAT scan Osteoporosis Albuminuria Diabetic nephropathy associated with type 1 diabetes mellitus Proliferative diabetic retinopathy associated with type 1 diabetes mellitus Hypothyroidism Hypertension Dyslipidemia Diabetic peripheral neuropathy associated with type 1 diabetes mellitus Diabetes mellitus type 1, uncontrolled (Chronic) Balance problem Anemia of chronic disease Medical History (Updated 03/19/24 @ 18:44 by Regine Leal MD) Anemia of chronic disease Balance problem Dyslipidemia Hypertension Hypothyroidism Coronary artery calcification Diabetic nephropathy associated with type 1 diabetes mellitus Osteoporosis Recurrent falls Paroxysmal atrial fibrillation currently on eliquis; f/u hasmukh madera cardio Type 1 diabetes mellitus Personal history of diabetic foot ulcer Obesity Reactive depression (situational) Bilateral edema of lower extremity GERD (gastroesophageal reflux disease) Chronic allergic rhinitis Sensorineural hearing loss of both ears Vitamin D deficiency Legally blind H/O osteoporotic pathological fracture ribs Osteoarthritis Glaucoma 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 Other No family history of adverse response to anesthesia No family history of bleeding disorder Denies family history of Ovarian cancer Prostate cancer Myocardial infarction Breast cancer Colorectal cancer Stroke Social History Smoking Status: Former smoker Tobacco Type: Cigarettes Age Started Using Tobacco: 16; Age Quit Using Tobacco: 21; packs per day: 1; Second Hand Exposure: No; Do You Dip or Chew Tobacco: No; Hx Alcohol Use: No Hx Substance Use: No Preferred Language: Armenian Communication Ability: Effective Communication Ability Comment: legally blind Visual Impairment: Severely Limited Hearing Ability: Normal Customer Service Teller Required: No Beliefs That Will Affect Care: None marital status: Current Living Situation: Spouse Current Living Situation Comment: lives with in [place] current 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 status: 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 How many Children do You have: 2 How many Children do You have Comment: daughters Feels Safe at Home: Yes Childhood Exposure to Second-Hand Smoke: Yes Diet: regular caffeine: Yes Dental Care, Regularly: No Physical Activity Frequency: Does not Exercise Seatbelt Use: always Sunscreen Use: No Assistive Devices: Cane, Denture - Upper, Denture - Lower, Hearing Aid - Bilateral, Walker and Other Allergies Allergies Allergy/AdvReac Type Severity Reaction Status Date / Time Iodinated Contrast Media Allergy Unknown UNKNOWN Verified 03/18/24 14:54 REACTION iodine Allergy Unknown TOPICAL Verified 03/18/24 14:54 REDNESS AND EDEMA Home Meds Home Medications Medication Instructions Recorded Confirmed brinzolamide 1 %-brimonidine 0.2 % 1 drp ophthalmic (eye) BID 07/08/18 03/18/24 eye drops,suspension (Simbrinza) polyethylene glycol 3350 17 gram 17 g PO DAILY PRN Constipation 10/16/23 03/18/24 oral powder packet (Miralax) cyanocobalamin (vitamin B-12) 1,000 mcg PO QAM 03/18/24 03/18/24 1,000 mcg tablet escitalopram oxalate 20 mg tablet 20 mg PO QAM 03/18/24 03/18/24 insulin glargine 100 unit/mL (3 25 unit subcut QPM 03/18/24 03/18/24 mL) subcutaneous pen (Lantus Solostar U-100 Insulin) levothyroxine 200 mcg tablet 200 mcg PO QAM 03/18/24 03/18/24 levothyroxine 50 mcg tablet 50 mcg PO QAM 03/18/24 03/18/24 metoprolol succinate 50 mg 50 mg PO QAM 03/18/24 03/18/24 tablet,extended release 24 hr omeprazole 40 mg capsule,delayed 40 mg PO QAM 03/18/24 03/18/24 release Previous Rx's Medication Instructions Recorded blood-glucose sensor (Dexcom G6 #3 ea 10/09/21 Sensor device) BD Ultra-Fine Verito Pen Needle 32 #500 ea 07/29/23 gauge x 5/32" (pen needle, diabetic) docusate sodium 100 mg capsule 100 mg PO BID #30 caps 09/06/23 sennosides 8.6 mg tablet (Senokot) 17.2 mg (2 x 8.6 mg) PO QAM #60 09/06/23 tabs acetone (urine) test (Ketostix #25 ea 10/04/23 strips) peg 3350-electrolytes 236 240 ml PO .COMPLEX #4,000 mL 03/09/24 gram-22.74 gram-6.74 gram-5.86 gram solution (Golytely) acetaminophen 500 mg tablet 500 - 1,000 mg (1 - 2 x 500 mg) PO 03/18/24 (Tylenol Extra Strength) Q8H PRN pain #90 tabs apixaban 5 mg tablet (Eliquis) 5 mg PO BID #180 tabs 03/18/24 atorvastatin 80 mg tablet 80 mg PO QPM #90 tabs 03/18/24 cholecalciferol (vitamin D3) 125 125 mcg PO QAM #90 tabs 03/18/24 mcg (5,000 unit) tablet insulin lispro 100 unit/mL See Rx Instructions .Route 03/18/24 subcutaneous pen (Humalog KwikPen .COMPLEX #75 mL (U-100) Insulin) losartan 25 mg tablet 25 mg PO QAM #90 tabs 03/18/24 metformin 500 mg tablet 500 mg PO BID #180 tabs 03/18/24 Results & Data (ED) Vital Signs Vital Signs - 24 hr 03/19/24 15:19 03/19/24 15:34 03/19/24 15:36 Temperature 36.7 C Temperature Source Oral Pulse Rate 84 84 88 Pulse Rate [Apical] Respiratory Rate 21 20 Respiratory Effort / Characteristics Non-Labored Spontaneous Respiratory Depth Normal Respiratory Pattern Regular Blood Pressure 124/65 Blood Pressure [Right Arm] Blood Pressure Mean 84 Blood Pressure Mean [Right Arm] Blood Pressure Position Semi-fowlers Blood Pressure Position [Right Arm] Pulse Oximetry 100 99 Oxygen Delivery Method Room Air Room Air Sepsis Recent Fever Within 48 Hours No Sepsis New/Unexplained Change in Mental Status No Sepsis Action Taken by Nursing No Action Required 03/19/24 16:04 03/19/24 17:09 Temperature Temperature Source Pulse Rate Pulse Rate [Apical] 87 86 Respiratory Rate 20 15 Respiratory Effort / Characteristics Non-Labored Spontaneous Non-Labored Spontaneous Respiratory Depth Normal Normal Respiratory Pattern Regular Regular Blood Pressure Blood Pressure [Right Arm] 128/59 L 126/61 Blood Pressure Mean Blood Pressure Mean [Right Arm] 82 82 Blood Pressure Position Blood Pressure Position [Right Arm] Semi-fowlers Pulse Oximetry 99 98 Oxygen Delivery Method Room Air Room Air Sepsis Recent Fever Within 48 Hours Sepsis New/Unexplained Change in Mental Status Sepsis Action Taken by Nursing Laboratory Data 03/19/24 15:30 03/19/24 15:30 Lab Results 03/19/24 03/19/24 03/19/24 Range/Units 15:30 15:43 15:53 WBC 7.33 (4.8-10.8) K/ul RBC 3.77 L (4.70-6.10) M/uL Hgb 10.2 L (14.0-18.0) g/dl POC Hgb 11.6 L (14.0-18.0) g/dl Hct 35.7 L (42.0-52.0) % POC Hct 34 L (42-52) % MCV 94.7 (80.0-100.0) fL MCH 27.1 (25.0-34.0) pg MCHC 28.6 L (32.0-36.0) g/dL RDW Std Deviation 55.7 H (36.4-46.3) fL RDW Coeff of Roland 15.9 H (11.5-14.5) % Plt Count 209 (130-400) K/uL MPV 11.1 (9.4-12.4) fL Immature Gran % (Auto) 0.8 % Neut % (Auto) 87.2 % Lymph % (Auto) 7.8 % [place] % (Auto) 3.8 % Eos % (Auto) 0.0 % Baso % (Auto) 0.4 % Neut # (Auto) 6.39 (1.40-6.50) K/uL Lymph # (Auto) 0.57 L (1.20-3.40) K/uL [place] # (Auto) 0.28 (0.11-0.59) K/uL Eos # (Auto) 0.00 (0.00-0.50) K/uL Baso # (Auto) 0.03 (0.00-0.20) K/uL Immature Gran # (Auto) 0.06 (0.01-0.20) K/uL PT 10.5 (9.0-12.0) Seconds INR 1.0 (0.9-1.1) ABG pCO2 (35-46) mmHg ABG pO2 (80-95) mmHg ABG HCO3 (19-24) mmol/L ABG O2 Saturation (90-95) % ABG Base Excess (-9-1.8) mEq/L James Test (Pos) VBG pH VBG pCO2 VBG pO2 VBG HCO3 VBG O2 Saturation VBG Base Excess Barometric Pressure Oxygen Given POC Sodium 126 L (135-144) mmol/L Sodium 127 L (136-145) mmol/L POC Potassium 7.1 H* (3.3-5.0) mmol/L Potassium 6.4 H* (3.5-5.1) mmol/L POC Chloride 101 (101-112) mmol/L Chloride 93 L (98-107) mmol/L Carbon Dioxide 7 L* (21-32) mmol/L POC Total CO2 9 L* (24-31) mmol/L Anion Gap 27 H (3-11) POC Anion Gap 24.0 (16-25) mmol/L POC BUN 37 H (7-18) mg/dl BUN 33 H (6-23) mg/dl Creatinine 1.67 H (0.6-1.4) mg/dl POC Creatinine 1.5 H (0.6-1.3) mg/dl Est Cr Clr Drug Dosing 42.7 ml/min eGFR 42.42 BUN/Creatinine Ratio 19.8 (10-20) Glucose 791 H* (70-99(Fasting)) mg/dl POC Glucose > 600 H* (70-99) mg/dl POC Glucose (other) > 700 H* (70-99) mg/dl Lactate (0.4-2.0) mmol/L Calcium 9.4 (8.6-10.3) mg/dl POC Ioniz Calcium Guillermo 1.21 (1.12-1.32) mmol/l Magnesium 2.4 (1.7-2.4) mg/dl Total Bilirubin 0.4 (0.2-1.0) mg/dl AST 18 (13-39) U/L ALT 16 (7-52) U/L Alkaline Phosphatase 92 (34-104) U/L Troponin I High Sens 17.3 (0-20) pg/ml Total Protein 7.2 (6.0-8.3) gm/dl Albumin 4.3 (3.4-5.0) gm/dl Globulin 2.9 (2.5-4.0) gm/dl Albumin/Globulin Ratio 1.5 (0.9-2) Lipase 13 (11-82) U/L Urine Color Urine Appearance (Clear) Urine pH (4.5-7.5) Ur Specific Victor (1.000-1.030) Urine Protein (Negative) Urine Glucose (UA) (Negative) Urine Ketones (Negative) Urine Blood (Negative) Urine Nitrite (Negative) Urine Bilirubin (Negative) Urine Urobilinogen (Negative) Ur Leukocyte Esterase (Negative) Urine WBC (Auto) (0-5) /hpf Urine RBC (Auto) (0-2) /hpf U Hyaline Cast (Auto) (0-2) /lpf U Epithel Cells (Auto) (0-2) /hpf Urine Bacteria (Auto) (None Seen) 03/19/24 03/19/24 03/19/24 Range/Units 16:45 17:38 18:00 WBC (4.8-10.8) K/ul RBC (4.70-6.10) M/uL Hgb (14.0-18.0) g/dl POC Hgb (14.0-18.0) g/dl Hct (42.0-52.0) % POC Hct (42-52) % MCV (80.0-100.0) fL MCH (25.0-34.0) pg MCHC (32.0-36.0) g/dL RDW Std Deviation (36.4-46.3) fL RDW Coeff of Roland (11.5-14.5) % Plt Count (130-400) K/uL MPV (9.4-12.4) fL Immature Gran % (Auto) % Neut % (Auto) % Lymph % (Auto) % [place] % (Auto) % Eos % (Auto) % Baso % (Auto) % Neut # (Auto) (1.40-6.50) K/uL Lymph # (Auto) (1.20-3.40) K/uL [place] # (Auto) (0.11-0.59) K/uL Eos # (Auto) (0.00-0.50) K/uL Baso # (Auto) (0.00-0.20) K/uL Immature Gran # (Auto) (0.01-0.20) K/uL PT (9.0-12.0) Seconds INR (0.9-1.1) ABG pCO2 17 L (35-46) mmHg ABG pO2 109 H (80-95) mmHg ABG HCO3 4 L (19-24) mmol/L ABG O2 Saturation 97.5 H (90-95) % ABG Base Excess -25.5 L (-9-1.8) mEq/L James Test Pos (Pos) VBG pH Cancelled VBG pCO2 Cancelled VBG pO2 Cancelled VBG HCO3 Cancelled VBG O2 Saturation Cancelled VBG Base Excess Cancelled Barometric Pressure Cancelled Oxygen Given ROOM AIR POC Sodium (135-144) mmol/L Sodium (136-145) mmol/L POC Potassium (3.3-5.0) mmol/L Potassium (3.5-5.1) mmol/L POC Chloride (101-112) mmol/L Chloride (98-107) mmol/L Carbon Dioxide (21-32) mmol/L POC Total CO2 (24-31) mmol/L Anion Gap (3-11) POC Anion Gap (16-25) mmol/L POC BUN (7-18) mg/dl BUN (6-23) mg/dl Creatinine (0.6-1.4) mg/dl POC Creatinine (0.6-1.3) mg/dl Est Cr Clr Drug Dosing ml/min eGFR BUN/Creatinine Ratio (10-20) Glucose (70-99(Fasting)) mg/dl POC Glucose (70-99) mg/dl POC Glucose (other) (70-99) mg/dl Lactate (0.4-2.0) mmol/L Calcium (8.6-10.3) mg/dl POC Ioniz Calcium Guillermo (1.12-1.32) mmol/l Magnesium (1.7-2.4) mg/dl Total Bilirubin (0.2-1.0) mg/dl AST (13-39) U/L ALT (7-52) U/L Alkaline Phosphatase (34-104) U/L Troponin I High Sens (0-20) pg/ml Total Protein (6.0-8.3) gm/dl Albumin (3.4-5.0) gm/dl Globulin (2.5-4.0) gm/dl Albumin/Globulin Ratio (0.9-2) Lipase (11-82) U/L Urine Color Yellow Urine Appearance Clear (Clear) Urine pH 5.0 (4.5-7.5) Ur Specific Victor 1.023 (1.000-1.030) Urine Protein 1+ H (Negative) Urine Glucose (UA) 3+ H (Negative) Urine Ketones 3+ H (Negative) Urine Blood Negative (Negative) Urine Nitrite Negative (Negative) Urine Bilirubin Negative (Negative) Urine Urobilinogen Negative (Negative) Ur Leukocyte Esterase Negative (Negative) Urine WBC (Auto) 0-5 (0-5) /hpf Urine RBC (Auto) 0-2 (0-2) /hpf U Hyaline Cast (Auto) 3-5 H (0-2) /lpf U Epithel Cells (Auto) 0-2 (0-2) /hpf Urine Bacteria (Auto) None Seen (None Seen) 03/19/24 03/19/24 Range/Units 18:03 18:10 WBC (4.8-10.8) K/ul RBC (4.70-6.10) M/uL Hgb (14.0-18.0) g/dl POC Hgb (14.0-18.0) g/dl Hct (42.0-52.0) % POC Hct (42-52) % MCV (80.0-100.0) fL MCH (25.0-34.0) pg MCHC (32.0-36.0) g/dL RDW Std Deviation (36.4-46.3) fL RDW Coeff of Roland (11.5-14.5) % Plt Count (130-400) K/uL MPV (9.4-12.4) fL Immature Gran % (Auto) % Neut % (Auto) % Lymph % (Auto) % [place] % (Auto) % Eos % (Auto) % Baso % (Auto) % Neut # (Auto) (1.40-6.50) K/uL Lymph # (Auto) (1.20-3.40) K/uL [place] # (Auto) (0.11-0.59) K/uL Eos # (Auto) (0.00-0.50) K/uL Baso # (Auto) (0.00-0.20) K/uL Immature Gran # (Auto) (0.01-0.20) K/uL PT (9.0-12.0) Seconds INR (0.9-1.1) ABG pCO2 (35-46) mmHg ABG pO2 (80-95) mmHg ABG HCO3 (19-24) mmol/L ABG O2 Saturation (90-95) % ABG Base Excess (-9-1.8) mEq/L James Test (Pos) VBG pH VBG pCO2 VBG pO2 VBG HCO3 VBG O2 Saturation VBG Base Excess Barometric Pressure Oxygen Given POC Sodium (135-144) mmol/L Sodium (136-145) mmol/L POC Potassium (3.3-5.0) mmol/L Potassium (3.5-5.1) mmol/L POC Chloride (101-112) mmol/L Chloride (98-107) mmol/L Carbon Dioxide (21-32) mmol/L POC Total CO2 (24-31) mmol/L Anion Gap (3-11) POC Anion Gap (16-25) mmol/L POC BUN (7-18) mg/dl BUN (6-23) mg/dl Creatinine (0.6-1.4) mg/dl POC Creatinine (0.6-1.3) mg/dl Est Cr Clr Drug Dosing ml/min eGFR BUN/Creatinine Ratio (10-20) Glucose (70-99(Fasting)) mg/dl POC Glucose > 600 H* (70-99) mg/dl POC Glucose (other) (70-99) mg/dl Lactate 2.3 H* (0.4-2.0) mmol/L Calcium (8.6-10.3) mg/dl POC Ioniz Calcium Guillermo (1.12-1.32) mmol/l Magnesium (1.7-2.4) mg/dl Total Bilirubin (0.2-1.0) mg/dl AST (13-39) U/L ALT (7-52) U/L Alkaline Phosphatase (34-104) U/L Troponin I High Sens (0-20) pg/ml Total Protein (6.0-8.3) gm/dl Albumin (3.4-5.0) gm/dl Globulin (2.5-4.0) gm/dl Albumin/Globulin Ratio (0.9-2) Lipase (11-82) U/L Urine Color Urine Appearance (Clear) Urine pH (4.5-7.5) Ur Specific Victor (1.000-1.030) Urine Protein (Negative) Urine Glucose (UA) (Negative) Urine Ketones (Negative) Urine Blood (Negative) Urine Nitrite (Negative) Urine Bilirubin (Negative) Urine Urobilinogen (Negative) Ur Leukocyte Esterase (Negative) Urine WBC (Auto) (0-5) /hpf Urine RBC (Auto) (0-2) /hpf U Hyaline Cast (Auto) (0-2) /lpf U Epithel Cells (Auto) (0-2) /hpf Urine Bacteria (Auto) (None Seen) Administered Medications Sodium Chloride (Nss) 2,000 mls @ 999 mls/hr IV .Q2H1M ONE Stop: 03/19/24 18:57 Last Admin: 03/19/24 17:11 Dose: 999 mls/hr Documented By: FRANK Insulin Human Regular 250 (units/ Sodium Chloride) 250 mls @ 9.8 mls/hr IV .Q24H ALEX; Protocol Stop: 04/18/24 16:59 Last Admin: 03/19/24 18:10 Dose: 9.8 units/hr, 9.8 mls/hr Documented By: FRANK Co-signed By: NAREN Imaging Data Radiologist's Impression: Head CT 03/19/24 16:50 CT SCAN OF THE BRAIN WITHOUT IV CONTRAST CLINICAL HISTORY: Fall. COMPARISON STUDY: CT of the brain dated 02/27/2024. TECHNIQUE: Unenhanced axial CT scan of the brain is performed from the vertex to the skull base. A dose lowering technique was utilized adhering to the principles of ALARA. The examination is degraded by motion artifact. CT DOSE: 900.54 mGy.cm FINDINGS: Brain parenchyma: There is age-related involutional change noting mild to moderate subcortical and periventricular microangiopathic disease. There is no hemorrhage, mass effect, or evidence of acute territorial ischemia by CT criteria. A chronic lacunar infarct is noted in the right basal ganglia. Osei- white matter differentiation is preserved. No extra-axial fluid collection is seen. Ventricles, sulci, cisterns: Prominent secondary to involutional change. Intracranial vasculature: There is atherosclerotic calcification of the cavernous carotid and vertebral arteries. Calvarium: Unremarkable. Sinuses and mastoids: The visualized paranasal sinuses are clear. The mastoid air cells are well pneumatized. Orbits: The bony orbits are grossly intact. There are bilateral ocular lens implants. IMPRESSION: There is no hemorrhage, mass effect, or evidence of acute territorial ischemia by CT criteria. ACT 112: Negative or not required by law. Electronically signed by: Ankit Lovell M.D. 03/19/2024 5:44 PM Discharge Plan Visit Data Chief Complaint: Hyperglycemia Stated Complaint: HYPERGYLCEMIA, ED Provider: Viviana Moser Discharge Problem: DKA (diabetic ketoacidosis), ROHIT (acute kidney injury), Acute dehydration, Fall from standing, Elevated lactic acid level Forms Stand Alone Forms: My [facility] Prescriptions Prescriptions: No Action (DME) pen needle, diabetic [BD Ultra-Fine Verito Pen Needle] 32 gauge x 5/32" needle See Rx Instructions .ROUTE .MEDSUPPLY Qty: 500 3RF Rx Instructions: Use 5 daily to inject insulin peg 3350-electrolytes [Golytely] 236-22.74-6.74 -5.86 gram recon soln 240 ml PO .COMPLEX Qty: 4000 0RF Rx Instructions: 240 mL PO take as directed per split dose instructions acetaminophen [Tylenol Extra Strength] 500 mg tablet 500 - 1,000 mg PO Q8H PRN (Reason: pain) Qty: 90 3RF Eliquis 5 mg tablet 5 mg PO BID Qty: 180 3RF atorvastatin 80 mg tablet 80 mg PO QPM Qty: 90 3RF Rx Instructions: for cholesterol cholecalciferol (vitamin D3) 125 mcg (5,000 unit) tablet 125 mcg PO QAM Qty: 90 3RF losartan 25 mg tablet 25 mg PO QAM Qty: 90 3RF metformin 500 mg tablet 500 mg PO BID Qty: 180 3RF insulin lispro [Humalog KwikPen Insulin] 100 unit/mL insulin pen See Rx Instructions .ROUTE .COMPLEX MDD 75 units Qty: 75 3RF Rx Instructions: Inject 30 units with breakfast and Lunch 10-15 units with dinner (DME) Dexcom G6 Sensor Device See Rx Instructions .Route Qty: 3 0RF Rx Instructions: As directed polyethylene glycol 3350 [Miralax] 17 gram powder in packet 17 g PO DAILY PRN (Reason: Constipation) (DME) Ketostix Strip See Rx Instructions .ROUTE .MEDSUPPLY Qty: 25 11RF Rx Instructions: Check if blood sugars are high > 4 to 6 hours Simbrinza 1-0.2 % Drops,Suspension 1 drp OPHTHALMIC (EYE) BID levothyroxine 50 mcg tablet 50 mcg PO QAM metoprolol succinate 50 mg tablet extended release 24 hr 50 mg PO QAM cyanocobalamin (vitamin B-12) 1,000 mcg tablet 1,000 mcg PO QAM omeprazole 40 mg capsule,delayed release(DR/EC) 40 mg PO QAM escitalopram oxalate 20 mg tablet 20 mg PO QAM insulin glargine [Lantus Solostar U-100 Insulin] 100 unit/mL (3 mL) insulin pen 25 unit subcut QPM Patient Comments: noon levothyroxine 200 mcg tablet 200 mcg PO QAM docusate sodium 100 mg Capsule 100 mg PO BID Qty: 30 0RF sennosides [Senokot] 8.6 mg Tablet 17.2 mg PO QAM Qty: 60 0RF Referrals Referrals: Belinda Moreira MD [Primary Care Provider] -
--- NOTE | 2024-03-19 17:47 | CT Scan Report ---
CT SCAN OF THE BRAIN WITHOUT IV CONTRAST CLINICAL HISTORY: Fall. COMPARISON STUDY: CT of the brain dated 02/27/2024. TECHNIQUE: Unenhanced axial CT scan of the brain is performed from the vertex to the skull base. A do se lowering technique was utilized adhering to the principles of ALARA. The examination is degraded b y motion artifact. CT DOSE: 900.54 mGy.cm FINDINGS: Brain parenchyma: There is age-related involutional change noting mild to moderate subcortical and pe riventricular microangiopathic disease. There is no hemorrhage, mass effect, or evidence of acute ter ritorial ischemia by CT criteria. A chronic lacunar infarct is noted in the right basal ganglia. Osei -white matter differentiation is preserved. No extra-axial fluid collection is seen. Ventricles, sulci, cisterns: Prominent secondary to involutional change. Intracranial vasculature: There is atherosclerotic calcification of the cavernous carotid and vertebr al arteries. Calvarium: Unremarkable. Sinuses and mastoids: The visualized paranasal sinuses are clear. The mastoid air cells are well pneu matized. Orbits: The bony orbits are grossly intact. There are bilateral ocular lens implants. IMPRESSION: There is no hemorrhage, mass effect, or evidence of acute territorial ischemia by CT nbat lilian. ACT 112: Negative or not required by law. Electronically signed by: Ankit Lovell M.D. 03/19/2024 5:44 PM
[2024-03-19 17:56] LABS: Base Excess ABG -25.5 mEq/L (-9-1.8); HCO3 ABG 4 mmol/L (19-24); Oxygen Saturation ABG 97.5 % (90-95); PCO2 ABG 17 mmHg (35-46); PO2 ABG 109 mmHg (80-95)
[2024-03-19] MEDS: INSULIN REGULAR 250 UNITS in SODIUM CHLORIDE 0.9% 247.5 ML IV SCH (18:10)
[2024-03-19] MEDS ORDERED: PHARMACY GLYCEMIC MGMT CONSULT PRN (18:27)
[2024-03-19 18:35] LABS: Allen Test Pos (Pos)
[2024-03-19] MEDS ORDERED: POLYETHYLENE (MIRALAX) 17 GM PACK PO PRN (18:52)
--- NOTE | 2024-03-19 18:52 | History & Physical Report ---
Date of Service March 19, 2024 Assessment & Plan (1) DKA (diabetic ketoacidosis): Plan: He checks his blood sugar regularly and has been taking his insulin as directed Denies to have any missing of insulin doses or any dietary indiscretion Blood sugar noted to be 600 in the emergency room with a CO2 level of 9 He has diabetic ketoacidosis and was started with intravenous insulin and IV fluid Glycemic pharmacist has been consulted Hemoglobin A1c will be checked Hyponatremia Noted to have a sodium of 126 likely secondary to hyperglycemia Will monitor Lactic acid of 2.3 Doubt any infection will not give any antibiotic (2) Recurrent falls: Plan: He tripped at home and ended up with a fall with minor injury of the head No confusion was noted in the emergency room CT of the head was unremarkable PT/OT eval (3) Hyperkalemia: Plan: Noted to have hyperkalemia with potassium of 7.1, no EKG changes Calcium gluconate and sodium bicarb point were administered Lokelma 1 dose was given as well. Will check PRP at around 830 tonight He was started with intravenous fluid insulin that would also decrease the potassium level and in fact he may need potassium down the line (4) Type 1 diabetes mellitus with obesity: Plan: As above (5) Paroxysmal atrial fibrillation: Plan: Heart rate is controlled at 86 (6) Hypertension: Plan: Will continue current blood pressure medications (7) Hypothyroidism: Plan: Continue supplement (8) Dyslipidemia: (9) Anemia of chronic disease: Plan: Hemoglobin remains stable at 11.6 Plan DVT prophylaxis On Eliquis CODE STATUS Full History of Present Illness Chief Complaint: Fall at home noted to have very high blood sugar on arrival Primary Care Provider: Belinda Moreira MD Is a 73-year-old male significant past medical history of type 1 diabetes, hypertension, hyperlipidemia, hypothyroidism, calcified coronary artery disease and anemia of chronic disease apparently tripped at home and fell at around noon today. Did not have any symptoms prior to the fall and did not lose any consciousness. Minor head injury noted following the fall and he was brought into the emergency room. The reported to have some confusion before the fall but did not have any confusion in the emergency room. He was noted to have very high blood sugar and low CO2 and very high potassium. He denies any symptoms of any infection and does not have any abdominal pain nausea no vomiting. He was started with insulin drip and was admitted to telemetry unit for continued care. His apparent CT scan of the head was negative for any injury and/or bleed. Allergies Allergy/AdvReac Type Severity Reaction Status Date / Time Iodinated Contrast Media Allergy Unknown UNKNOWN Verified 03/18/24 14:54 REACTION iodine Allergy Unknown TOPICAL Verified 03/18/24 14:54 REDNESS AND EDEMA Home Medications Medication Instructions Recorded Confirmed Type brinzolamide 1 %-brimonidine 0.2 % 1 drp ophthalmic (eye) BID 07/08/18 03/19/24 History eye drops,suspension (Simbrinza) blood-glucose sensor (Dexcom G6 #3 ea 10/09/21 03/17/24 Rx Sensor device) BD Ultra-Fine Verito Pen Needle 32 #500 ea 07/29/23 03/17/24 Rx gauge x 5/32" (pen needle, diabetic) acetone (urine) test (Ketostix #25 ea 10/04/23 03/17/24 Rx strips) acetaminophen 500 mg tablet 500 - 1,000 mg (1 - 2 x 500 mg) PO 03/18/24 03/19/24 Rx (Tylenol Extra Strength) Q8H PRN pain #90 tabs apixaban 5 mg tablet (Eliquis) 5 mg PO BID #180 tabs 03/18/24 03/19/24 Rx atorvastatin 80 mg tablet 80 mg PO QPM #90 tabs 03/18/24 03/19/24 Rx cyanocobalamin (vitamin B-12) 1,000 mcg PO QAM 03/18/24 03/19/24 History 1,000 mcg tablet escitalopram oxalate 20 mg tablet 20 mg PO QAM 03/18/24 03/19/24 History insulin glargine 100 unit/mL (3 25 unit subcut QPM 03/18/24 03/19/24 History mL) subcutaneous pen (Lantus Solostar U-100 Insulin) insulin lispro 100 unit/mL See Rx Instructions .Route 03/18/24 03/19/24 Rx subcutaneous pen (Humalog KwikPen .COMPLEX #75 mL (U-100) Insulin) levothyroxine 200 mcg tablet 200 mcg PO QAM 03/18/24 03/19/24 History levothyroxine 50 mcg tablet 50 mcg PO QAM 03/18/24 03/19/24 History metformin 500 mg tablet 500 mg PO BID #180 tabs 03/18/24 03/19/24 Rx metoprolol succinate 50 mg 50 mg PO QAM 03/18/24 03/19/24 History tablet,extended release 24 hr omeprazole 40 mg capsule,delayed 40 mg PO QAM 03/18/24 03/19/24 History release Past Med/Surg History Problem List (Updated 03/19/24 @ 18:44 by Regine Leal MD) Hyperkalemia DKA (diabetic ketoacidosis) (Acute) Type 1 diabetes mellitus with obesity Iron deficiency anemia Paroxysmal atrial fibrillation Low back pain Recurrent falls Coronary artery calcification seen on CAT scan Osteoporosis Albuminuria Diabetic nephropathy associated with type 1 diabetes mellitus Proliferative diabetic retinopathy associated with type 1 diabetes mellitus Hypothyroidism Hypertension Dyslipidemia Diabetic peripheral neuropathy associated with type 1 diabetes mellitus Diabetes mellitus type 1, uncontrolled (Chronic) Balance problem Anemia of chronic disease Medical History (Updated 03/19/24 @ 18:44 by Regine Leal MD) Anemia of chronic disease Balance problem Dyslipidemia Hypertension Hypothyroidism Coronary artery calcification Diabetic nephropathy associated with type 1 diabetes mellitus Osteoporosis Recurrent falls Paroxysmal atrial fibrillation currently on eliquis; f/u hasmukh [facility] cardio Type 1 diabetes mellitus Personal history of diabetic foot ulcer Obesity Reactive depression (situational) Bilateral edema of lower extremity GERD (gastroesophageal reflux disease) Chronic allergic rhinitis Sensorineural hearing loss of both ears Vitamin D deficiency Legally blind H/O osteoporotic pathological fracture ribs Osteoarthritis Glaucoma 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 Other No family history of adverse response to anesthesia No family history of bleeding disorder Denies family history of Ovarian cancer Prostate cancer Myocardial infarction Breast cancer Colorectal cancer Stroke Social History Smoking Status: Former smoker Tobacco Type: Cigarettes Age Started Using Tobacco: 16; Age Quit Using Tobacco: 21; packs per day: 1; Second Hand Exposure: No; Do You Dip or Chew Tobacco: No; Hx Alcohol Use: No Hx Substance Use: No Preferred Language: Zambian Communication Ability: Effective Communication Ability Comment: legally blind Visual Impairment: Severely Limited Hearing Ability: Normal Automotive Instructor Required: No Beliefs That Will Affect Care: None marital status: Current Living Situation: Spouse Current Living Situation Comment: lives with in [place] current 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 status: retired 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 How many Children do You have: 2 How many Children do You have Comment: daughters Feels Safe at Home: Yes Childhood Exposure to Second-Hand Smoke: Yes Diet: regular caffeine: Yes Dental Care, Regularly: No Physical Activity Frequency: Does not Exercise Seatbelt Use: always Sunscreen Use: No Assistive Devices: Cane, Denture - Upper, Denture - Lower, Hearing Aid - Bilateral, Walker and Other Review of Systems Review of Systems: All systems reviewed and are unremarkable except as noted below Physical Exam Physical Exam: Lying in bed without any apparent distress Constitutional: well developed, well nourished and + ill appearing Eyes: PERRL, conjunctivae normal, anicteric sclerae ENMT: external ear and nose normal, oropharynx normal Neck: trachea midline, no thyromegaly Respiratory: no respiratory distress Auscultation: lungs clear to auscultation bilaterally Cardiovascular: Rate/Rhythm: regular rate and regular rhythm; not tachycardic Gastrointestinal (Abdomen): Inspection/Auscultation: normal bowel sounds; abdomen not distended Percussion/Palpation: abdomen soft; abdomen nontender Musculoskeletal: No acute arthritis involving any of the joint Neurologic: normal touch/pain/proprioception and moves all extremities; no focal motor deficits Psychiatric: A+Ox3, euthymic affect Lymphatic: no cervical or axillary lymphadenopathy Results & Data Results & Data Vital Signs (Past 12 Hours) Vital Signs Temp Pulse Pulse Resp BP BP Pulse Ox 03/19/24 17:09 86 15 126/61 98 03/19/24 16:04 87 20 128/59 L 99 03/19/24 15:36 88 20 99 03/19/24 15:34 84 03/19/24 15:19 36.7 C 84 21 124/65 100 O2 Del Method 03/19/24 17:09 Room Air 03/19/24 16:04 Room Air 03/19/24 15:36 Room Air 03/19/24 15:34 03/19/24 15:19 Room Air Laboratory Results Short CBC 03/19/24 Range/Units 15:30 WBC 7.33 (4.8-10.8) K/ul Hgb 10.2 L (14.0-18.0) g/dl Hct 35.7 L (42.0-52.0) % Plt Count 209 (130-400) K/uL BMP 03/19/24 15:30 Sodium 127 L Potassium 6.4 H* Chloride 93 L Carbon Dioxide 7 L* BUN 33 H Creatinine 1.67 H Glucose 791 H* Calcium 9.4 Liver Function 03/19/24 Range/Units 15:30 Total Bilirubin 0.4 (0.2-1.0) mg/dl AST 18 (13-39) U/L ALT 16 (7-52) U/L Alkaline Phosphatase 92 (34-104) U/L Albumin 4.3 (3.4-5.0) gm/dl Urine 03/19/24 Range/Units 16:45 Urine Color Yellow Urine Appearance Clear (Clear) Urine pH 5.0 (4.5-7.5) Ur Specific [place] 1.023 (1.000-1.030) Urine Protein 1+ H (Negative) Urine Glucose (UA) 3+ H (Negative) Medications Administered Current Inpatient Medications Dextrose (Dextrose 50% 50 Ml Syringe) 25 - 50 ml IV UD PRN; Protocol PRN Reason: Hypoglycemia Protocol Stop: 04/18/24 16:56 Glucagon (Glucagon For Inj 1 Mg Vial) 1 mg SQ UD PRN; Protocol PRN Reason: Hypoglycemia Protocol Stop: 04/18/24 16:56 Glucose (Glucose 40% Gel 15 Gm Tube) 15 - 30 gm PO UD PRN; Protocol PRN Reason: Hypoglycemia Protocol Stop: 04/18/24 16:56 Glucose (Glucose 10 Tab/Tube) 4 - 8 tab PO UD PRN; Protocol PRN Reason: Hypoglycemia Protocol Stop: 04/18/24 16:56 Sodium Chloride (Nss) 2,000 mls @ 999 mls/hr IV .Q2H1M ONE Stop: 03/19/24 18:57 Last Admin: 03/19/24 17:11 Dose: 999 mls/hr Insulin Human Regular 250 (units/ Sodium Chloride) 250 mls @ 9.8 mls/hr IV .Q24H ALEX; Protocol Stop: 04/18/24 16:59 Last Admin: 03/19/24 18:10 Dose: 9.8 units/hr, 9.8 mls/hr Calcium Chloride 1,000 mg/ (Dextrose) 60 mls @ 240 mls/hr IV NOW STA Stop: 03/19/24 18:51 Insulin Aspart (Insulin Aspart Per Unit Charge) 0 units SC ACHS ALEX Stop: 04/18/24 20:59 Miscellaneous (Carbohydrates For Hypoglycemia ) 15 - 30 gm PO UD PRN PRN Reason: Hypoglycemia Protocol Stop: 04/18/24 16:56 Miscellaneous Information (Pharmacy Glycemic Mgmt Consult) 1 each N/A UD PRN; Protocol PRN Reason: Consult Stop: 04/18/24 18:26 Code Status & VTE Plan VTE Prophylaxis Plan VTE Prophylaxis will be ordered: Yes (6) Hypertension Hypertension type: essential hypertension Qualified Code(s): I10 - Essential (primary) hypertension (7) Hypothyroidism Hypothyroidism type: acquired Qualified Code(s): E03.9 - Hypothyroidism, unspecified
[2024-03-19] MEDS: CALCIUM CHLORIDE 10% 1,000 MG in DEXTROSE 5% 50 ML IV STA (19:23)
[2024-03-19] MEDS: NovoLIN-R BOLUS FROM BAG IV ONE (19:29)
[2024-03-19 19:52] LABS: BUN Creatinine Ratio 20.5 (10-20); Calcium 8.7 mg/dl (8.6-10.3); Creatinine Clr Calc Pharmacy 40.5 ml/min; Magnesium 2.4 mg/dl (1.7-2.4); Phosphorus 7.9 mg/dl (2.5-4.9); Potassium 6.1 mmol/L (3.5-5.1)
[2024-03-19] MEDS: SODIUM ZIRCONIUM CYCLOSILICATE 10 GM PACKET PO STA (20:06)
[2024-03-19] MEDS: SODIUM BICARB 8.4% INJ 50 MEQ/50 ML SYR IV STA (20:06)
[2024-03-19 20:18] LABS: Estimated Average Glucose 200 mg/dl; Hemoglobin A1C 8.6 % (4.5-5.6)
[2024-03-19] MEDS: SODIUM CHLORIDE 0.9% 1,000 ML IV SCH (22:52)
[2024-03-19] MEDS: INSULIN ASPART PER UNIT CHARGE SC SCH (22:57)
[2024-03-19 23:26] LABS: BUN Creatinine Ratio 18.4 (10-20); Calcium 9.4 mg/dl (8.6-10.3); Creatinine Clr Calc Pharmacy 33.3 ml/min; Potassium 4.6 mmol/L (3.5-5.1)
[2024-03-19] MEDS: APIXABAN 5 MG TABLET PO SCH (23:38)
[2024-03-19] MEDS: ATORVASTATIN 40 MG TAB PO SCH (23:38)
[2024-03-20 02:01] LABS: Calcium 9.2 mg/dl (8.6-10.3); Creatinine Clr Calc Pharmacy 31.8 ml/min; Magnesium 2.1 mg/dl (1.7-2.4); Phosphorus 3.4 mg/dl (2.5-4.9)
[2024-03-20] MEDS ORDERED: POTASSIUM CHLORIDE 20 MEQ in SODIUM CHLORIDE 0.9% 1,000 ML IV SCH (05:09)
[2024-03-20] MEDS: D5W AND 1/2NSS + 20MEQ KCL 20 MEQ/1,000 ML BAG IV SCH (05:53)
[2024-03-20] MEDS: LEVOTHYROXINE SODIUM 200 MCG TABLET PO SCH (06:26)
[2024-03-20] MEDS: LEVOTHYROXINE SODIUM 50 MCG TABLET PO SCH (06:26)
[2024-03-20 06:32] LABS: BUN Creatinine Ratio 19.3 (10-20); Basophils # (auto) 0.02 K/uL (0.00-0.20); Basophils % (auto) 0.2 %; Calcium 9.4 mg/dl (8.6-10.3); Creatinine Clr Calc Pharmacy 32.4 ml/min; Eosinophils # (auto) 0.01 K/uL (0.00-0.50); Eosinophils % (auto) 0.1 %; Hematocrit (blood only) 30.1 % (42.0-52.0); Hemoglobin 9.9 g/dl (14.0-18.0); Immature Granulocytes # (auto) 0.07 K/uL (0.01-0.20); Immature Granulocytes % (auto) 0.6 %; Lymphocytes % (auto) 11.7 %; Magnesium 2.1 mg/dl (1.7-2.4); Mean Corpuscular Hemoglobin 27.5 pg (25.0-34.0); Mean Corpuscular Hgb Conc 32.9 g/dL (32.0-36.0); Mean Corpuscular Volume 83.6 fL (80.0-100.0); Mean Platelet Volume 10.1 fL (9.4-12.4); Monocytes # (auto) 1.51 K/uL (0.11-0.59); Monocytes % (auto) 13.6 %; Neutrophils # (auto) 8.19 K/uL (1.40-6.50); Neutrophils % (auto) 73.8 %; Phosphorus 2.4 mg/dl (2.5-4.9); Platelet Count 195 K/uL (130-400); RDW Coefficient of Variation 15.9 % (11.5-14.5); RDW Standard Deviation 48.7 fL (36.4-46.3)
[2024-03-20] MEDS: DEXTROSE 50% 50 ML SYRINGE IV PRN (06:42)
[2024-03-20 06:43] LABS: Thyroid Stimulating Hormone 21.024 uIu/ml (0.300-4.500)
[2024-03-20] MEDS: ESCITALOPRAM OXALATE 20 MG TAB PO SCH (09:04)
[2024-03-20] MEDS: PANTOprazole 40 MG TAB PO SCH (09:04)
[2024-03-20] MEDS: CYANOCOBALAMIN (B-12) 500 MCG TABLET PO SCH (09:04)
[2024-03-20] MEDS: METOPROLOL SUCC 50MG EXT REL TAB PO SCH (09:05)
[2024-03-20] MEDS: SENNA 8.6 MG TAB PO SCH (09:09)
--- NOTE | 2024-03-20 10:51 | Pharmacy Report ---
Pharmacy Glycemic Short Note 2 - Date of Service March 20, 2024 - Glycemic Short BSG Results (Last 24 hours): 03/19/24 03/19/24 03/19/24 15:30 15:43 15:53 Glucose 791 H* POC Glucose > 600 H* POC Glucose (other) > 700 H* 03/19/24 03/19/24 03/19/24 18:03 19:08 19:17 Glucose 751 H* POC Glucose > 600 H* > 600 H* POC Glucose (other) 03/19/24 03/19/24 03/19/24 20:59 22:02 22:46 Glucose 506 H* POC Glucose 583 H* 523 H* POC Glucose (other) 03/19/24 03/20/24 03/20/24 23:02 00:08 01:04 Glucose POC Glucose 499 H* 426 H* 341 H* POC Glucose (other) 03/20/24 03/20/24 03/20/24 01:19 02:16 03:03 Glucose 312 H* POC Glucose 272 H 223 H POC Glucose (other) 03/20/24 03/20/24 03/20/24 04:01 05:11 05:41 Glucose POC Glucose 198 H 131 H 127 H POC Glucose (other) 03/20/24 03/20/24 03/20/24 05:48 06:13 07:12 Glucose 105 H POC Glucose 116 H 200 H POC Glucose (other) 03/20/24 03/20/24 03/20/24 07:36 08:01 08:17 Glucose POC Glucose 200 H 197 H 202 H POC Glucose (other) 03/20/24 03/20/24 09:18 10:19 Glucose POC Glucose 196 H 168 H POC Glucose (other) OUTPATIENT ANTIDIABETIC REGIMEN: * Lantus 25 units daily, Humalog 30 units with breakfast and lunch, 10-15 units with dinner ASSESSMENT: * 73 year old admitted with hyperglycemia/DKA - started on insulin infusion per protocol. Continues on insulin drip this morning at 9.4 units/hr - dextrose fluids ordered per protocol. Labs improving, AG slightly elevated but trending down, reasonable to add on some basal insulin and overlap with insulin drip. Will resume home basal insulin, patient eating breakfast/lunch. Patient known to glycemic service from prior admission 08/30/23, will plan to utilize similar parameters from admission. BSGs stable this afternoon, anion gap closed will d/c insulin drip and continue with SQ insulin only PLAN FOR INPATIENT GLYCEMIC CONTROL: * Continue insulin drip per DKA protocol * Basal insulin * Lantus - 25 units x 1 (overlap with insulin drip) * Bolus insulin * Start after insulin drip d/c * ACHS 110-140 / CF 20 / CR 7
[2024-03-20 11:41] LABS: Calcium 9.2 mg/dl (8.6-10.3); Magnesium 2.1 mg/dl (1.7-2.4); Potassium 3.8 mmol/L (3.5-5.1)
[2024-03-20 11:47] LABS: BUN Creatinine Ratio 20.4 (10-20); Creatinine Clr Calc Pharmacy 34.3 ml/min; Phosphorus 2.6 mg/dl (2.5-4.9)
[2024-03-20] MEDS: LANTUS PER UNIT CHARGE SC ONE (13:04)
[2024-03-20 13:29] LABS: BUN Creatinine Ratio 22.4 (10-20); Phosphorus 2.8 mg/dl (2.5-4.9); Potassium 4.1 mmol/L (3.5-5.1)
[2024-03-20] MEDS: ACETAMINOPHEN 500 MG TAB PO PRN (15:14)
[2024-03-20] MEDS: INSULIN ASPART PER UNIT CHARGE SC SCH (16:56)
--- NOTE | 2024-03-20 18:13 | Hospitalist Progress Note ---
Date of Service March 20, 2024 Assessment & Plan (1) DKA (diabetic ketoacidosis): Plan: He checks his blood sugar regularly and has been taking his insulin as directed Denies to have any missing of insulin doses or any dietary indiscretion. Unclear cause but his does report that he has frequently been missing some of his medications. It is possible that noncompliance/cognitive issues are playing a role. His TSH is elevated at 21 which could also reflect noncompliance with medications. No evidence of infection or MS. Blood sugar noted to be 600 in the emergency room with a CO2 level of 9, anion gap of 27 Placed on insulin drip and given IV fluids, anion gap has now closed and pharmacy glycemic consult appreciated. Has now switched to Lantus and NovoLog He is tolerating a diabetic diet Hemoglobin A1c elevated to 8.6% which is around where he typically is Continue to check blood sugars and give Lantus and NovoLog adjustments as needed Holding home metformin (2) Recurrent falls: Plan: He tripped at home and ended up with a fall with minor injury of the head. Likely from DKA and severe dehydration CT of the head was unremarkable except for old right basal ganglia lacunar in farct PT/OT eval ordered and will likely need rehab (3) Acute metabolic encephalopathy: Plan: With confusion on arrival secondary to DKA Improving now with improvement of DKA Is having some memory issues as per at home Check vitamin B1 and B12 level in the morning and address hypothyroidism as above (4) Anemia of chronic disease: Plan: Hemoglobin 9.9 today likely hemodilutional drop from 11 on admission. Normocytic anemia B12, folate checked in 08/2023 were normal. Iron studies at that time reflected anemia of chronic disease but possible iron deficiency with transferrin saturation 13% but ferritin normal TSH is quite elevated which could be contributing Check iron studies, B12, folate again in the morning and replace as needed Management of hypothyroidism as above Follow CBC No bleeding overtly (5) Hyperkalemia: Plan: Noted to have hyperkalemia with potassium of 7.1, no EKG changes Calcium gluconate and sodium bicarb point were administered Lokelma 1 dose was given as well. He was given IV fluid hydration and insulin drip Potassium is now normalized-finish out 1 more liter of IV fluids with K and then discontinue fluids Follow BMP (6) Type 1 diabetes mellitus with obesity: Plan: As above (7) Paroxysmal atrial fibrillation: Plan: He is in a normal sinus rhythm here Continue home Eliquis Follow on telemetry Continue home metoprolol (8) Hypertension: Plan: Will continue current blood pressure medications (9) Hypothyroidism: Plan: TSH here is elevated at 21 up from 5.5 several months ago. He has been quite elevated in the past as well which is likely a reflection of noncompliance Will discuss medications with him and he would benefit from having someone oversee his medication intake and ensure that levothyroxine is being taken on an empty stomach Continue home levothyroxine 250 mcg daily Check TSH in 2 to 3 weeks (10) Dyslipidemia: Plan: Continue home atorvastatin Plan DVT prophylaxis-Eliquis CODE STATUS Full Disposition-continued stay on telemetry, PT/OT evaluations pending-May need rehab placement Discussed his care with his on the phone on 03/20 Admission and Anticipated Discharge Date Admission Date: March 19, 2024 Subjective Patient still confused, was not restraints overnight but they were removed this morning. He was able to tell me that he was in the hospital but it first said that he was in "[facility]" and later was able to say [facility]. He is able to tell me how he takes his insulin at home. He denies pain except for in his back which was relieved with Tylenol. Telemetry with normal sinus rhythm with rates in the 70s to 80s Physical Exam Constitutional: WD/WN, vitals as above Respiratory: normal respiratory effort, lungs clear to auscultation Cardiovascular: RRR, no murmur, no edema Gastrointestinal (Abdomen): normal bowel sounds, soft, nontender, no hepatosplenomegaly Psychiatric: Orientation: alert, oriented to person, oriented to place and cooperative; + not oriented to time Results & Data Results & Data Vital Signs (Past 12 Hours) Vital Signs Temp Pulse Pulse Resp BP Pulse Ox O2 Del Method 03/20/24 16:11 65 03/20/24 15:03 37.3 C 63 16 134/63 96 Room Air 03/20/24 11:30 36.7 C 65 18 104/57 L 98 Room Air 03/20/24 07:27 68 03/20/24 07:11 36.8 C 67 18 124/64 100 Room Air Laboratory Results CBC, BMP x 2, VBG, magnesium, phosphorus reviewed PG Care Time/CCT Total # of Minutes Spent Total Time Spent with Patient: Total time spent is greater than 50% in coordination of care (as documented) at patient's floor/unit and/or counseling patient: Coding Level of Care Code 10149 SUB INP/OBS CARE 3/50MIN Diagnoses DKA (diabetic ketoacidosis) E11.10 Recurrent falls R29.6 Acute metabolic encephalopathy G93.41 Anemia of chronic disease D63.8 Hyperkalemia E87.5 Type 1 diabetes mellitus with obesity E10.69; E66.9 Paroxysmal atrial fibrillation I48.0 Essential hypertension I10 Hypertension type: essential hypertension Acquired hypothyroidism E03.9 Hypothyroidism type: acquired Dyslipidemia E78.5 (8) Hypertension Hypertension type: essential hypertension Qualified Code(s): I10 - Essential (primary) hypertension (9) Hypothyroidism Hypothyroidism type: acquired Qualified Code(s): E03.9 - Hypothyroidism, unspecified
[2024-03-21] MEDS: INSULIN ASPART PER UNIT CHARGE SC SCH (01:00)
--- NOTE | 2024-03-21 01:01 | Electrocardiogram Report ---
Test Reason : Blood Pressure : */* mmHG Vent. Rate : 86 BPM Atrial Rate : * BPM P-R Int : 256 ms QRS Dur : 122 ms QT Int : 422 ms P-R-T Axes : * 54 55 degrees QTcB Int : 504 ms Sinus rhythm with 1st degree A-V block Non-specific intra-ventricular conduction delay Nonspecific ST abnormality Abnormal ECG When compared with ECG of 11-Dec-2023 13:11, [place] interval has increased Confirmed by Xavier Vasquez ([id number]) on 03/21/2024 1:01:09 AM Referred By: REFERRED SELF Confirmed By: Xavier Vasquez
[2024-03-21 07:41] LABS: Albumin Globulin Ratio 1.5 (0.9-2); Albumin Level 3.7 gm/dl (3.4-5.0); BUN Creatinine Ratio 21.4 (10-20); Bilirubin,Total 0.4 mg/dl (0.2-1.0); Creatinine Clr Calc Pharmacy 45.5 ml/min; Globulin 2.5 gm/dl (2.5-4.0); Magnesium 2.1 mg/dl (1.7-2.4); Potassium 4.1 mmol/L (3.5-5.1); Total Protein 6.2 gm/dl (6.0-8.3)
[2024-03-21 07:45] LABS: Basophils # (auto) 0.01 K/uL (0.00-0.20); Basophils % (auto) 0.1 %; Eosinophils # (auto) 0.18 K/uL (0.00-0.50); Eosinophils % (auto) 2.3 %; Hematocrit (blood only) 33.5 % (42.0-52.0); Hemoglobin 10.8 g/dl (14.0-18.0); Immature Granulocytes # (auto) 0.04 K/uL (0.01-0.20); Immature Granulocytes % (auto) 0.5 %; Lymphocytes # (auto) 1.75 K/uL (1.20-3.40); Lymphocytes % (auto) 22.8 %; Mean Corpuscular Hemoglobin 27.3 pg (25.0-34.0); Mean Corpuscular Hgb Conc 32.2 g/dL (32.0-36.0); Mean Corpuscular Volume 84.6 fL (80.0-100.0); Mean Platelet Volume 10.7 fL (9.4-12.4); Monocytes # (auto) 0.56 K/uL (0.11-0.59); Monocytes % (auto) 7.3 %; Neutrophils # (auto) 5.12 K/uL (1.40-6.50); Platelet Count 198 K/uL (130-400); RDW Standard Deviation 52.7 fL (36.4-46.3); Red Blood Count 3.96 M/uL (4.70-6.10); White Blood Count 7.66 K/ul (4.8-10.8)
[2024-03-21 08:00] LABS: Ferritin 47.6 ng/ml (8-388)
[2024-03-21 08:01] LABS: Vitamin B12 > 1500 pg/ml (180-914)
[2024-03-21] MEDS: DOCUSATE SODIUM 100 MG CAP PO SCH (08:22)
[2024-03-21] MEDS: LANTUS PER UNIT CHARGE SC SCH (08:23)
[2024-03-21] MEDS: FERROUS SULFATE 325 MG TAB PO SCH (09:06)
--- NOTE | 2024-03-21 14:31 | Hospitalist Progress Note ---
Date of Service March 21, 2024 Assessment & Plan (1) DKA (diabetic ketoacidosis): Plan: He checks his blood sugar regularly and has been taking his insulin as directed. Denies to have any missing of insulin doses or any dietary indiscretion. Unclear cause but his does report that he has frequently been missing some of his medications. It is possible that noncompliance/cognitive issues are playing a role. His TSH is elevated at 21 which could also reflect noncompliance with medications. No evidence of infection or CA. Blood sugar noted to be 600 in the emergency room with a CO2 level of 9, anion gap of 27 Placed on insulin drip and given IV fluids, anion gap has now closed and pharmacy glycemic consult appreciated. Has now switched to Lantus and NovoLog He is tolerating a diabetic diet Hemoglobin A1c elevated to 8.6% which is around where he typically is Continue to check blood sugars and give Lantus and NovoLog adjustments as needed Holding home metformin (2) Recurrent falls: Plan: He tripped at home and ended up with a fall with minor injury of the head. Likely from DKA and severe dehydration CT of the head was unremarkable except for old right basal ganglia lacunar i nfarct PT/OT eval ordered -he needs rehab-case management placed referrals (3) Acute metabolic encephalopathy: Plan: With confusion on arrival secondary to DKA Now much improved with resolution of DKA Is having some memory issues as per at home Check vitamin B1-pending B12 normal address hypothyroidism as above (4) Anemia of chronic disease: Plan: Hemoglobin 10.8 and improved from previous after stopping IV fluids. Normocytic anemia B12, folate checked in 08/2023 were normal. Iron studies at that time reflected anemia of chronic disease with possible iron deficiency with transferrin saturation 13% and a normal ferritin B12 and folate checked again here-normal Iron studies checked here in show iron deficiency with transferrin saturation very low at 6%, ferritin 47-start ferrous sulfate 325 mg p.o. twice daily with docusate 100 Mg p.o. twice daily TSH is quite elevated which could be contributing- Management of hypothyroidism as above Follow CBC No bleeding overtly (5) Hyperkalemia: Plan: Noted to have hyperkalemia with potassium of 7.1, no EKG changes Calcium gluconate and sodium bicarb point were administered Lokelma 1 dose was given as well. He was given IV fluid hydration and insulin drip Potassium is now normalized Follow BMP (6) Type 1 diabetes mellitus with obesity: Plan: As above (7) Paroxysmal atrial fibrillation: Plan: He has been going in and out of Atrial flutter on 03/21, rates in the 60s in flutter, asymptomatic Continue home Eliquis Follow on telemetry Continue home metoprolol (8) Hypertension: Plan: Blood pressure stable-continue metoprolol (9) Hypothyroidism: Plan: TSH here is elevated at 21 up from 5.5 several months ago. He has been quite elevated in the past as well which is likely a reflection of noncompliance Will discuss medications with him and he would benefit from having someone oversee his medication intake and ensure that levothyroxine is being taken on an empty stomach Continue home levothyroxine 250 mcg daily Check TSH in 2 to 3 weeks as an outpatient with PCP (10) Dyslipidemia: Plan: Continue home atorvastatin Plan DVT prophylaxis-Eliquis CODE STATUS Full Disposition-improving, PT evaluation performed today recommends rehab-case management has made referrals Discussed his care with his on the phone on 03/20 Admission and Anticipated Discharge Date Admission Date: March 19, 2024 Subjective Patient has no complaints. No nausea or vomiting, no chest pains or shortness of breath. Telemetry with paroxysms of atrial flutter with rates in the 60s and normal sinus rhythm with rates in the 60s. Physical Exam Constitutional: WD/WN, vitals as above Respiratory: normal respiratory effort, lungs clear to auscultation Cardiovascular: RRR, no murmur, no edema Gastrointestinal (Abdomen): normal bowel sounds, soft, nontender, no hepatosplenomegaly Psychiatric: Orientation: alert, oriented to person, oriented to place and cooperative; + not oriented to time Results & Data Results & Data Vital Signs (Past 12 Hours) Vital Signs Temp Pulse Pulse Resp BP Pulse Ox O2 Del Method 03/21/24 10:48 36.9 C 56 L 18 139/74 98 Room Air 03/21/24 07:27 79 03/21/24 07:20 37.0 C 64 18 137/60 96 Room Air 03/21/24 03:16 37.1 C 66 18 128/62 97 Room Air Laboratory Results CBC, BMP, magnesium, LFTs, iron studies, B12, folate reviewed PG Care Time/CCT Total # of Minutes Spent Total Time Spent with Patient: Total time spent is greater than 50% in coordination of care (as documented) at patient's floor/unit and/or counseling patient: Coding Level of Care Code 03933 SUB INP/OBS CARE 2MIN Diagnoses DKA (diabetic ketoacidosis) E11.10 Recurrent falls R29.6 Acute metabolic encephalopathy G93.41 Anemia of chronic disease D63.8 Hyperkalemia E87.5 Type 1 diabetes mellitus with obesity E10.69; E66.9 Paroxysmal atrial fibrillation I48.0 Essential hypertension I10 Hypertension type: essential hypertension Acquired hypothyroidism E03.9 Hypothyroidism type: acquired Dyslipidemia E78.5 (8) Hypertension Hypertension type: essential hypertension Qualified Code(s): I10 - Essential (primary) hypertension (9) Hypothyroidism Hypothyroidism type: acquired Qualified Code(s): E03.9 - Hypothyroidism, unspecified
[2024-03-21] MEDS: THIAMINE HCL 100 MG TAB PO SCH (15:21)
[2024-03-22 06:56] LABS: Basophils # (auto) 0.02 K/uL (0.00-0.20); Basophils % (auto) 0.4 %; Eosinophils # (auto) 0.19 K/uL (0.00-0.50); Eosinophils % (auto) 4.1 %; Hematocrit (blood only) 33.4 % (42.0-52.0); Hemoglobin 10.8 g/dl (14.0-18.0); Immature Granulocytes # (auto) 0.01 K/uL (0.01-0.20); Immature Granulocytes % (auto) 0.2 %; Lymphocytes # (auto) 1.49 K/uL (1.20-3.40); Mean Corpuscular Hemoglobin 27.6 pg (25.0-34.0); Mean Corpuscular Hgb Conc 32.3 g/dL (32.0-36.0); Mean Corpuscular Volume 85.2 fL (80.0-100.0); Mean Platelet Volume 10.3 fL (9.4-12.4); Monocytes # (auto) 0.42 K/uL (0.11-0.59); Neutrophils # (auto) 2.52 K/uL (1.40-6.50); Neutrophils % (auto) 54.3 %; Platelet Count 169 K/uL (130-400); RDW Coefficient of Variation 17.2 % (11.5-14.5); RDW Standard Deviation 54.1 fL (36.4-46.3); Red Blood Count 3.92 M/uL (4.70-6.10); White Blood Count 4.65 K/ul (4.8-10.8)
[2024-03-22 07:19] LABS: Albumin Globulin Ratio 1.4 (0.9-2); Albumin Level 3.4 gm/dl (3.4-5.0); BUN Creatinine Ratio 23.6 (10-20); Bilirubin,Total 0.5 mg/dl (0.2-1.0); Calcium 8.7 mg/dl (8.6-10.3); Creatinine Clr Calc Pharmacy 78.7 ml/min; Globulin 2.4 gm/dl (2.5-4.0); Potassium 3.8 mmol/L (3.5-5.1); Total Protein 5.8 gm/dl (6.0-8.3)
--- NOTE | 2024-03-22 12:47 | Hospitalist Progress Note ---
Date of Service March 22, 2024 Assessment & Plan (1) DKA (diabetic ketoacidosis): Plan: He checks his blood sugar regularly and has been taking his insulin as directed. Denies to have any missing of insulin doses or any dietary indiscretion. Unclear cause but his does report that he has frequently been missing some of his medications. It is possible that noncompliance/cognitive issues are playing a role. His TSH is elevated at 21 which could also reflect noncompliance with medications. No evidence of infection or [place]. Blood sugar noted to be 600 in the emergency room with a CO2 level of 9, anion gap of 27 Placed on insulin drip and given IV fluids, anion gap has now closed and pharmacy glycemic consult appreciated. Has now switched to Lantus and NovoLog He is tolerating a diabetic diet Hemoglobin A1c elevated to 8.6% which is around where he typically is Continue to check blood sugars and give Lantus and NovoLog adjustments as needed Holding home metformin, however review of endocrinology note from 11/2023 says that he is not to be taking metformin due to polypharmacy-discontinue on discharge (2) Recurrent falls: Plan: He tripped at home and ended up with a fall with minor injury of the head. Likely from DKA and severe dehydration He has a long history of many falls at home as per review of endocrinology notes CT of the head was unremarkable except for old right basal ganglia lacunar infarct PT/OT eval ordered -he needs rehab-case management placed referrals (3) Acute metabolic encephalopathy: Plan: With confusion on arrival secondary to DKA Now much improved with resolution of DKA Is having some memory issues as per at home Check vitamin B1-pending and started empiric p.o. thiamine B12 normal address hypothyroidism as above Suspect some underlying cognitive impairment as well Continue Lexapro from home for depression (4) Hypothyroidism: Plan: TSH here is elevated at 21 up from 5.5 several months ago. He has been quite elevated in the past as well which is likely a reflection of noncompliance Will discuss medications with him and he would benefit from having someone oversee his medication intake and ensure that levothyroxine is being taken on an empty stomach Continue home levothyroxine 250 mcg daily Check TSH in 2 to 3 weeks as an outpatient with PCP/endocrinology (5) Anemia of chronic disease: Plan: Hemoglobin 10.8 and improved from previous after stopping IV fluids. Normocytic anemia B12 and folate checked again here-normal and is on B12 supplement at home Iron studies checked here show iron deficiency with transferrin saturation very low at 6%, ferritin 47-start ferrous sulfate 325 mg p.o. twice daily with docusate 100 Mg p.o. twice daily TSH is quite elevated which could be contributing- Management of hypothyroidism as above Follow CBC No bleeding overtly Has an upcoming colonoscopy as per -consider adding EGD for iron deficiency anemia (6) Hyperkalemia: Plan: Noted to have hyperkalemia with potassium of 7.1 on admission, no EKG changes Calcium gluconate and sodium bicarb point were administered and Lokelma 1 dose was given as well. He was given IV fluid hydration and insulin drip Potassium is now normalized Follow BMP (7) Paroxysmal atrial fibrillation: Plan: He has been going in and out of Atrial flutter on 03/21, rates in the 60s in flutter, asymptomatic. None further since then Continue home Eliquis Okay to downgrade off telemetry Continue home metoprolol (8) Hypertension: Plan: Blood pressure stable-continue metoprolol Okay to resume home losartan now that acute kidney injury is resolved Plan Chronic medical problems: Type 1 diabetes with obesity- As above, since he was in his early 20s Follows with endocrinology at [facility] Dyslipidemia-continue home statin GERD-continue PPI DVT prophylaxis-Eliquis CODE STATUS Full Disposition-improved, medically stable for discharge, PT recommends rehab-case management has made referrals on 03/21 but he will need insurance authorization after bed is obtained. Hopeful for discharge on Saturday but not likely given need for SNF Downgrade off PCU to medical/surgical unit Discussed his care with his on the phone on 03/20 and will call again on 03/21 Admission and Anticipated Discharge Date Admission Date: March 19, 2024 Anticipated date of discharge: 03/23/24 Subjective Patient has no complaints. He is out of bed to chair and eating lunch. He tells me that he thought I was his daughter talking to him because I look like her. Telemetry with normal sinus rhythm normal rates, no further atrial flutter since yesterday Physical Exam Constitutional: WD/WN, vitals as above Respiratory: normal respiratory effort, lungs clear to auscultation Cardiovascular: RRR, no murmur, no edema Gastrointestinal (Abdomen): normal bowel sounds, soft, nontender, no hepatosplenomegaly Psychiatric: Orientation: alert, oriented to person, oriented to place and cooperative; + not oriented to time Results & Data Results & Data Vital Signs (Past 12 Hours) Vital Signs Temp Pulse Pulse Resp BP Pulse Ox O2 Del Method 03/22/24 10:37 66 03/22/24 10:30 36.9 C 66 17 129/75 98 Room Air 03/22/24 07:16 36.3 C L 72 16 172/75 H 96 Room Air 03/22/24 03:02 36.5 C 71 18 150/69 H 97 Room Air Laboratory Results CBC, BMP, magnesium, LFTs reviewed PG Care Time/CCT Total # of Minutes Spent Total Time Spent with Patient: Total time spent is greater than 50% in coordination of care (as documented) at patient's floor/unit and/or counseling patient: Coding Level of Care Code 62909 SUB INP/OBS CARE 2/35MIN Diagnoses DKA (diabetic ketoacidosis) E11.10 Recurrent falls R29.6 Acute metabolic encephalopathy G93.41 Acquired hypothyroidism E03.9 Hypothyroidism type: acquired Anemia of chronic disease D63.8 Hyperkalemia E87.5 Paroxysmal atrial fibrillation I48.0 Essential hypertension I10 Hypertension type: essential hypertension (4) Hypothyroidism Hypothyroidism type: acquired Qualified Code(s): E03.9 - Hypothyroidism, unspecified (8) Hypertension Hypertension type: essential hypertension Qualified Code(s): I10 - Essential (primary) hypertension
[2024-03-23] MEDS: LOSARTAN POTASSIUM 25 MG TAB PO SCH (08:07)
[2024-03-23 08:53] LABS: Basophils # (auto) 0.02 K/uL (0.00-0.20); Basophils % (auto) 0.5 %; Eosinophils # (auto) 0.19 K/uL (0.00-0.50); Eosinophils % (auto) 4.4 %; Hematocrit (blood only) 36.5 % (42.0-52.0); Hemoglobin 11.5 g/dl (14.0-18.0); Immature Granulocytes # (auto) 0.02 K/uL (0.01-0.20); Immature Granulocytes % (auto) 0.5 %; Lymphocytes # (auto) 1.49 K/uL (1.20-3.40); Lymphocytes % (auto) 34.8 %; Mean Corpuscular Hgb Conc 31.5 g/dL (32.0-36.0); Mean Corpuscular Volume 85.7 fL (80.0-100.0); Mean Platelet Volume 9.9 fL (9.4-12.4); Monocytes # (auto) 0.42 K/uL (0.11-0.59); Monocytes % (auto) 9.8 %; Neutrophils # (auto) 2.14 K/uL (1.40-6.50); Platelet Count 158 K/uL (130-400); RDW Standard Deviation 53.2 fL (36.4-46.3); Red Blood Count 4.26 M/uL (4.70-6.10); White Blood Count 4.28 K/ul (4.8-10.8)
[2024-03-23 09:04] LABS: BUN Creatinine Ratio 19.3 (10-20); Creatinine Clr Calc Pharmacy 84.4 ml/min
--- NOTE | 2024-03-23 13:27 | Pharmacy Report ---
Pharmacy Glycemic Short Note 2 - Date of Service March 23, 2024 - Glycemic Short BSG Results (Last 24 hours): 03/22/24 03/22/24 03/23/24 16:06 20:26 07:32 Glucose POC Glucose 128 H 129 H 229 H 03/23/24 03/23/24 08:22 11:31 Glucose 222 H POC Glucose 106 H OUTPATIENT ANTIDIABETIC REGIMEN: * Lantus 25 units daily, Humalog 30 units with breakfast and lunch, 10-15 units with dinner HbA1c: 8.6% (03/19/24) ASSESSMENT: 03/23/24 * Blood sugars remain labile, but overall reasonably improved yesterday * Fasting blood sugar still elevated this morning, but will use caution as historically patient has experienced hypoglycemia at basal doses > 25 units * May require tightened parameters w/ breakfast and slightly looser rest of day 03/20/24 * 73 year old admitted with hyperglycemia/DKA - started on insulin infusion per protocol. Continues on insulin drip this morning at 9.4 units/hr - dextrose fluids ordered per protocol. Labs improving, AG slightly elevated but trending down, reasonable to add on some basal insulin and overlap with insulin drip. Will resume home basal insulin, patient eating breakfast/lunch. Patient known to glycemic service from prior admission 08/30/23, will plan to utilize similar parameters from admission. BSGs stable this afternoon, anion gap closed will d/c insulin drip and continue with SQ insulin only PLAN FOR INPATIENT GLYCEMIC CONTROL: * Basal insulin * Lantus 25 units SC daily * Bolus insulin * NovoLog per scale ACHS or Q6hrs while NPO * Goal Range: Low 110 mg/dL - High 140 mg/dL * Correction Factor: 20 mg/dL/unit * Nutritional / Prandial insulin per carb ratio of 1 unit per 5 grams CHO consumed
--- NOTE | 2024-03-23 19:39 | Hospitalist Progress Note ---
Date of Service March 23, 2024 Assessment & Plan (1) DKA (diabetic ketoacidosis): Plan: He checks his blood sugar regularly and has been taking his insulin as directed. Denies to have any missing of insulin doses or any dietary indiscretion. Unclear cause but his does report that he has frequently been missing some of his medications. It is possible that noncompliance/cognitive issues are playing a role. His TSH is elevated at 21 which could also reflect noncompliance with medications. No evidence of infection or [place]. Blood sugar noted to be 600 in the emergency room with a CO2 level of 9, anion gap of 27 Placed on insulin drip and given IV fluids, anion gap has now closed and pharmacy glycemic consult appreciated. Has now switched to Lantus and NovoLog He is tolerating a diabetic diet Hemoglobin A1c elevated to 8.6% which is around where he typically is Continue to check blood sugars and give Lantus and NovoLog adjustments as needed Holding home metformin, however review of endocrinology note from 11/2023 says that he is not to be taking metformin due to polypharmacy-discontinue on discharge. awaiting placement/ (2) Recurrent falls: Plan: He tripped at home and ended up with a fall with minor injury of the head. Likely from DKA and severe dehydration He has a long history of many falls at home as per review of endocrinology notes CT of the head was unremarkable except for old right basal ganglia lacunar infarct PT/OT eval ordered -he needs rehab-case management placed referrals (3) Acute metabolic encephalopathy: Plan: With confusion on arrival secondary to DKA Now much improved with resolution of DKA Is having some memory issues as per at home Check vitamin B1-pending and started empiric p.o. thiamine B12 normal address hypothyroidism as above Suspect some underlying cognitive impairment as well Continue Lexapro from home for depression (4) Hypothyroidism: Plan: TSH here is elevated at 21 up from 5.5 several months ago. He has been quite elevated in the past as well which is likely a reflection of noncompliance Will discuss medications with him and he would benefit from having someone oversee his medication intake and ensure that levothyroxine is being taken on an empty stomach Continue home levothyroxine 250 mcg daily Check TSH in 2 to 3 weeks as an outpatient with PCP/endocrinology (5) Anemia of chronic disease: Plan: Hemoglobin 10.8 and improved from previous after stopping IV fluids. Normocytic anemia B12 and folate checked again here-normal and is on B12 supplement at home Iron studies checked here show iron deficiency with transferrin saturation very low at 6%, ferritin 47-start ferrous sulfate 325 mg p.o. twice daily with docusate 100 Mg p.o. twice daily TSH is quite elevated which could be contributing- Management of hypothyroidism as above Follow CBC No bleeding overtly Has an upcoming colonoscopy as per -consider adding EGD for iron deficiency anemia (6) Hyperkalemia: Plan: Noted to have hyperkalemia with potassium of 7.1 on admission, no EKG changes Calcium gluconate and sodium bicarb point were administered and Lokelma 1 dose was given as well. He was given IV fluid hydration and insulin drip Potassium is now normalized Follow BMP (7) Paroxysmal atrial fibrillation: Plan: He has been going in and out of Atrial flutter on 03/21, rates in the 60s in flutter, asymptomatic. None further since then Continue home Eliquis Okay to downgrade off telemetry Continue home metoprolol (8) Hypertension: Plan: Blood pressure stable-continue metoprolol Okay to resume home losartan now that acute kidney injury is resolved Plan Chronic medical problems: Type 1 diabetes with obesity- As above, since he was in his early 20s Follows with endocrinology at [facility] Dyslipidemia-continue home statin GERD-continue PPI DVT prophylaxis-Eliquis CODE STATUS Full Disposition-improved, medically stable for discharge, PT recommends rehab-case management has made referrals on 03/21 but he will need insurance authorization after bed is obtained. Hopeful for discharge on Saturday but not likely given need for SNF Downgrade off PCU to medical/surgical unit Discussed his care with his on the phone on 03/20 and will call again on 03/21 Admission and Anticipated Discharge Date Admission Date: March 19, 2024 Subjective 73 yo male reports no new symptoms. Review of Systems Review of Systems: All systems reviewed & are unremarkable except as noted in HPI & below Physical Exam Constitutional: WD/WN, vitals as above Respiratory: normal respiratory effort, lungs clear to auscultation Cardiovascular: RRR, no murmur, no edema Gastrointestinal (Abdomen): normal bowel sounds, soft, nontender, no hepatosplenomegaly Psychiatric: Orientation: alert, oriented to person, oriented to place and cooperative; + not oriented to time Results & Data Results & Data Vital Signs (Past 12 Hours) Vital Signs Temp Pulse Resp BP Pulse Ox O2 Del Method 03/23/24 14:59 37.0 C 72 18 137/63 98 Room Air 03/23/24 07:50 Room Air 03/23/24 07:49 36.9 C 73 16 145/78 H 96 Room Air PG Care Time/CCT Total # of Minutes Spent Total Time Spent with Patient: Total time spent is greater than 50% in coordination of care (as documented) at patient's floor/unit and/or counseling patient: Coding Level of Care Code 31786 SUB INP/OBS CARE 2/35MIN Diagnoses DKA (diabetic ketoacidosis) E11.10 Recurrent falls R29.6 Acute metabolic encephalopathy G93.41 Acquired hypothyroidism E03.9 Hypothyroidism type: acquired Anemia of chronic disease D63.8 Hyperkalemia E87.5 Paroxysmal atrial fibrillation I48.0 Essential hypertension I10 Hypertension type: essential hypertension (4) Hypothyroidism Hypothyroidism type: acquired Qualified Code(s): E03.9 - Hypothyroidism, unsp ecified (8) Hypertension Hypertension type: essential hypertension Qualified Code(s): I10 - Essential (primary) hypertension
[2024-03-24 09:53] LABS: Hemoglobin 11.7 g/dl (14.0-18.0); Mean Corpuscular Hemoglobin 27.7 pg (25.0-34.0); Mean Corpuscular Hgb Conc 32.5 g/dL (32.0-36.0); Mean Corpuscular Volume 85.1 fL (80.0-100.0); Mean Platelet Volume 9.6 fL (9.4-12.4); Platelet Count 162 K/uL (130-400); RDW Coefficient of Variation 16.6 % (11.5-14.5); RDW Standard Deviation 51.5 fL (36.4-46.3); Red Blood Count 4.23 M/uL (4.70-6.10); White Blood Count 6.21 K/ul (4.8-10.8)
[2024-03-24 10:16] LABS: BUN Creatinine Ratio 15.8 (10-20); Creatinine Clr Calc Pharmacy 69.4 ml/min; Potassium 3.8 mmol/L (3.5-5.1)
[2024-03-24 20:39] VITALS: RESP 18; O2SAT 97
--- NOTE | 2024-03-24 21:50 | Hospitalist Progress Note ---
Date of Service March 24, 2024 Assessment & Plan (1) DKA (diabetic ketoacidosis): Plan: He checks his blood sugar regularly and has been taking his insulin as directed. Denies to have any missing of insulin doses or any dietary indiscretion. Unclear cause but his does report that he has frequently been missing some of his medications. It is possible that noncompliance/cognitive issues are playing a role. His TSH is elevated at 21 which could also reflect noncompliance with medications. No evidence of infection or AK. Blood sugar noted to be 600 in the emergency room with a CO2 level of 9, anion gap of 27 Placed on insulin drip and given IV fluids, anion gap has now closed and pharmacy glycemic consult appreciated. Has now switched to Lantus and NovoLog He is tolerating a diabetic diet Hemoglobin A1c elevated to 8.6% which is around where he typically is Continue to check blood sugars and give Lantus and NovoLog adjustments as needed Holding home metformin, however review of endocrinology note from 11/2023 says that he is not to be taking metformin due to polypharmacy-discontinue on discharge. awaiting placement/ reviewed bmp on 03/24 (2) Recurrent falls: Plan: He tripped at home and ended up with a fall with minor injury of the head. Likely from DKA and severe dehydration He has a long history of many falls at home as per review of endocrinology notes CT of the head was unremarkable except for old right basal ganglia lacunar infarct PT/OT eval ordered -he needs rehab-case management placed referrals (3) Acute metabolic encephalopathy: Plan: With confusion on arrival secondary to DKA Now much improved with resolution of DKA Is having some memory issues as per at home Check vitamin B1-pending and started empiric p.o. thiamine B12 normal address hypothyroidism as above Suspect some underlying cognitive impairment as well Continue Lexapro from home for depression (4) Hypothyroidism: Plan: TSH here is elevated at 21 up from 5.5 several months ago. He has been quite elevated in the past as well which is likely a reflection of noncompliance Will discuss medications with him and he would benefit from having someone oversee his medication intake and ensure that levothyroxine is being taken on an empty stomach Continue home levothyroxine 250 mcg daily Check TSH in 2 to 3 weeks as an outpatient with PCP/endocrinology (5) Anemia of chronic disease: Plan: Hemoglobin 10.8 and improved from previous after stopping IV fluids. Normocytic anemia B12 and folate checked again here-normal and is on B12 supplement at home Iron studies checked here show iron deficiency with transferrin saturation very low at 6%, ferritin 47-start ferrous sulfate 325 mg p.o. twice daily with docusate 100 Mg p.o. twice daily TSH is quite elevated which could be contributing- Management of hypothyroidism as above Follow CBC No bleeding overtly Has an upcoming colonoscopy as per -consider adding EGD for iron deficiency anemia (6) Hyperkalemia: Plan: Noted to have hyperkalemia with potassium of 7.1 on admission, no EKG changes Calcium gluconate and sodium bicarb point were administered and Lokelma 1 dose was given as well. He was given IV fluid hydration and insulin drip Potassium is now normalized Follow BMP (7) Paroxysmal atrial fibrillation: Plan: He has been going in and out of Atrial flutter on 03/21, rates in the 60s in flutter, asymptomatic. None further since then Continue home Eliquis Okay to downgrade off telemetry Continue home metoprolol (8) Hypertension: Plan: Blood pressure stable-continue metoprolol Okay to resume home losartan now that acute kidney injury is resolved Plan Chronic medical problems: Type 1 diabetes with obesity- As above, since he was in his early 20s Follows with endocrinology at [facility] Dyslipidemia-continue home statin GERD-continue PPI DVT prophylaxis-Eliquis CODE STATUS Full Disposition-improved, medically stable for discharge, PT recommends rehab-case management has made referrals on 03/21 but he will need insurance authorization after bed is obtained. Hopeful for discharge on Saturday but not likely given need for SNF Downgrade off PCU to medical/surgical unit Discussed his care with his on the phone on 03/20 and will call again on 03/21 Admission and Anticipated Discharge Date Admission Date: March 19, 2024 Subjective Patient reports no new symptoms. Physical Exam Constitutional: WD/WN, vitals as above Respiratory: normal respiratory effort, lungs clear to auscultation Cardiovascular: RRR, no murmur, no edema Gastrointestinal (Abdomen): normal bowel sounds, soft, nontender, no hepatosplenomegaly Psychiatric: Orientation: alert, oriented to person, oriented to place and cooperative; + not oriented to time Results & Data Results & Data Vital Signs (Past 12 Hours) Vital Signs Temp Pulse Resp BP Pulse Ox O2 Del Method 03/24/24 20:37 37.1 C 78 18 138/62 97 Room Air 03/24/24 15:03 37 C 72 20 129/55 L 95 Room Air PG Care Time/CCT Total # of Minutes Spent Total Time Spent with Patient: Total time spent is greater than 50% in coordination of care (as documented) at patient's floor/unit and/or counseling patient: Coding Level of Care Code 90307 SUB INP/OBS CARE 2/35MIN Diagnoses DKA (diabetic ketoacidosis) E11.10 Recurrent falls R29.6 Acute metabolic encephalopathy G93.41 Acquired hypothyroidism E03.9 Hypothyroidism type: acquired Anemia of chronic disease D63.8 Hyperkalemia E87.5 Paroxysmal atrial fibrillation I48.0 Essential hypertension I10 Hypertension type: essential hypertension (4) Hypothyroidism Hypothyroidism type: acquired Qualified Code(s): E03.9 - Hypothyroidism, unspecified (8) Hypertension Hypertension type: essential hypertension Qualified Code(s): I10 - Essential (primary) hypertension
[2024-03-25 07:19] VITALS: BP 141/54; TEMP 98.1
[2024-03-25 07:31] LABS: Hemoglobin 10.7 g/dl (14.0-18.0); Mean Corpuscular Hemoglobin 27.6 pg (25.0-34.0); Mean Corpuscular Hgb Conc 32.4 g/dL (32.0-36.0); Mean Corpuscular Volume 85.3 fL (80.0-100.0); Platelet Count 182 K/uL (130-400); RDW Coefficient of Variation 16.6 % (11.5-14.5); RDW Standard Deviation 51.2 fL (36.4-46.3); Red Blood Count 3.87 M/uL (4.70-6.10); White Blood Count 6.72 K/ul (4.8-10.8)
[2024-03-25 07:43] LABS: BUN Creatinine Ratio 16.2 (10-20); Calcium 8.9 mg/dl (8.6-10.3); Creatinine Clr Calc Pharmacy 70.8 ml/min; Potassium 3.9 mmol/L (3.5-5.1)
--- NOTE | 2024-03-25 08:44 | Pharmacy Report ---
Pharmacy Glycemic Short Note 2 - Date of Service March 25, 2024 - Glycemic Short BSG Results (Last 24 hours): 03/24/24 03/24/24 03/24/24 09:40 11:30 17:07 Glucose 333 H* POC Glucose 232 H 122 H 03/24/24 03/25/24 03/25/24 20:25 06:36 07:39 Glucose 132 H POC Glucose 104 H 162 H OUTPATIENT ANTIDIABETIC REGIMEN: * Lantus 25 units daily, Humalog 30 units with breakfast and lunch, 10-15 units with dinner HbA1c: 8.6% (03/19/24) ASSESSMENT: 03/25/24 * Blood sugar trend continues with highs earlier in the day with improvement in evening * Carb ratio tightened yesterday, will continue today * Fasting blood sugar improved today, will continue current basal 03/23/24 * Blood sugars remain labile, but overall reasonably improved yesterday * Fasting blood sugar still elevated this morning, but will use caution as historically patient has experienced hypoglycemia at basal doses > 25 units * May require tightened parameters w/ breakfast and slightly looser rest of day 03/20/24 * 73 year old admitted with hyperglycemia/DKA - started on insulin infusion per protocol. Continues on insulin drip this morning at 9.4 units/hr - dextrose fluids ordered per protocol. Labs improving, AG slightly elevated but trending down, reasonable to add on some basal insulin and overlap with insulin drip. Will resume home basal insulin, patient eating breakfast/lunch. Patient known to glycemic service from prior admission 08/30/23, will plan to utilize similar parameters from admission. BSGs stable this afternoon, anion gap closed will d/c insulin drip and continue with SQ insulin only PLAN FOR INPATIENT GLYCEMIC CONTROL: * Basal insulin * Lantus 25 units SC daily * Bolus insulin * NovoLog per scale ACHS or Q6hrs while NPO * Goal Range: Low 110 mg/dL - High 140 mg/dL * Correction Factor: 20 mg/dL/unit * Nutritional / Prandial insulin per carb ratio of 1 unit per 4.5 grams CHO consumed
[2024-03-25 11:42] VITALS: PULSE 62
[2024-03-25] MEDS ORDERED: ONDANSETRON INJ 2 MG/ML 2 ML VIAL IV STA (13:03)
[2024-03-25] MEDS: ONDANSETRON INJ 2 MG/ML 2 ML VIAL ONE (13:38)
--- NOTE | 2024-03-26 08:31 | Discharge Summary ---
Discharge Summary Date of Service March 25, 2024 Principal Dx & Hospital Course #1 = Principal Diagnosis (1) DKA (diabetic ketoacidosis): He checks his blood sugar regularly and has been taking his insulin as directed. Denies to have any missing of insulin doses or any dietary indiscretion. Unclear cause but his does report that he has frequently been missing some of his medications. It is possible that noncompliance/cognitive issues are playing a role. His TSH is elevated at 21 which could also reflect noncompliance with medications. No evidence of infection or AK. Blood sugar noted to be 600 in the emergency room with a CO2 level of 9, anion gap of 27 Placed on insulin drip and given IV fluids, anion gap has now closed and pharmacy glycemic consult appreciated. Has now switched to Lantus and NovoLog He is tolerating a diabetic diet Hemoglobin A1c elevated to 8.6% which is around where he typically is Anion gap closed. Holding home metformin, however review of endocrinology note from 11/2023 says that he is not to be taking metformin due to polypharmacy-discontinue on discharge. Discharged torehab. (2) Recurrent falls: He tripped at home and ended up with a fall with minor injury of the head. Likely from DKA and severe dehydration He has a long history of many falls at home as per review of endocrinology notes CT of the head was unremarkable except for old right basal ganglia lacunar infarct PT/OT eval ordered -he needs rehab-case management placed referrals (3) Acute metabolic encephalopathy: With confusion on arrival secondary to DKA Now much improved with resolution of DKA Is having some memory issues as per at home Check vitamin B1-pending and started empiric p.o. thiamine B12 normal address hypothyroidism as above Suspect some underlying cognitive impairment as well Continue Lexapro from home for depression (4) Hypothyroidism: TSH here is elevated at 21 up from 5.5 several months ago. He has been quite elevated in the past as well which is likely a reflection of noncompliance Will discuss medications with him and he would benefit from having someone oversee his medication intake and ensure that levothyroxine is being taken on an empty stomach Continue home levothyroxine 250 mcg daily Check TSH in 2 to 3 weeks as an outpatient with PCP/endocrinology (5) Anemia of chronic disease: Hemoglobin 10.8 and improved from previous after stopping IV fluids. Normocytic anemia B12 and folate checked again here-normal and is on B12 supplement at home Iron studies checked here show iron deficiency with transferrin saturation very low at 6%, ferritin 47-start ferrous sulfate 325 mg p.o. twice daily with docusate 100 Mg p.o. twice daily TSH is quite elevated which could be contributing- Management of hypothyroidism as above Follow CBC No bleeding overtly Has an upcoming colonoscopy as per -consider adding EGD for iron deficiency anemia (6) Hyperkalemia: Noted to have hyperkalemia with potassium of 7.1 on admission, no EKG changes Calcium gluconate and sodium bicarb point were administered and Lokelma 1 dose was given as well. He was given IV fluid hydration and insulin drip Potassium is now normalized (7) Paroxysmal atrial fibrillation: He has been going in and out of Atrial flutter on 03/21, rates in the 60s in flutter, asymptomatic. None further since then Continue home Eliquis Okay to downgrade off telemetry Continue home metoprolol (8) Hypertension: Blood pressure stable-continue metoprolol Okay to resume home losartan now that acute kidney injury is resolved Plan Chronic medical problems: Type 1 diabetes with obesity- As above, since he was in his early 20s Follows with endocrinology at [facility] Dyslipidemia-continue home statin GERD-continue PPI Admission HPI Per Admitting Provider Is a 73-year-old male significant past medical history of type 1 diabetes, hypertension, hyperlipidemia, hypothyroidism, calcified coronary artery disease and anemia of chronic disease apparently tripped at home and fell at around noon today. Did not have any symptoms prior to the fall and did not lose any consciousness. Minor head injury noted following the fall and he was brought into the emergency room. The reported to have some confusion before the fall but did not have any confusion in the emergency room. He was noted to have very high blood sugar and low CO2 and very high potassium. He denies any symptoms of any infection and does not have any abdominal pain nausea no vomiting. He was started with insulin drip and was admitted to telemetry unit for continued care. His apparent CT scan of the head was negative for any injury and/or bleed. Discharge Exam Constitutional WD/WN, vitals as above Respiratory normal respiratory effort, lungs clear to auscultation Cardiovascular RRR, no murmur, no edema Gastrointestinal (Abdomen) normal bowel sounds, soft, nontender, no hepatosplenomegaly Psychiatric Orientation: alert, oriented to person, oriented to place and cooperative; + not oriented to time Discharge Plan Discharge Items Patient Disposition: Transfer [facility] Fac Reason For Visit: FALL,HYPERGYLCEMIA Discharge Diagnosis: fall Activity: Resume your previous activity Non-emergency contact: Primary Care Provider Call non-emergency contact if: you have any medication questions Follow-up/Referrals: Belinda Moreira MD [Primary Care Provider] - Diet: Carb Consistent or DM2 Addtl Attending Provider Instructions: recommend followup with endocrinology within 1 month. Recommend followup with PCP in 1-2 weeks. Pending Studies at Discharge: No Stand-Alone Forms: My Zoom Skilled Items Patient informed of condition?: Yes DNR: No Discharge Level of Care: Skilled Communicable Disease: No Discharge Prognosis: Stable Lines: None Urinary Catheter: No Medications and DC Order Prescriptions: New thiamine HCl (vitamin B1) 100 mg Tablet 200 mg PO QAM Qty: 30 0RF Continued (DME) pen needle, diabetic [BD Ultra-Fine Verito Pen Needle] 32 gauge x 5/32" needle See Rx Instructions .ROUTE .MEDSUPPLY Qty: 500 3RF Rx Instructions: Use 5 daily to inject insulin acetaminophen [Tylenol Extra Strength] 500 mg tablet 500 - 1,000 mg PO Q8H PRN (Reason: pain) Qty: 90 3RF Eliquis 5 mg tablet 5 mg PO BID Qty: 180 3RF atorvastatin 80 mg tablet 80 mg PO QPM Qty: 90 3RF Rx Instructions: for cholesterol insulin lispro [Humalog KwikPen Insulin] 100 unit/mL insulin pen See Rx Instructions .ROUTE .COMPLEX MDD 75 units Qty: 75 3RF Rx Instructions: Inject 30 units with breakfast and Lunch 10-15 units with dinner (DME) Dexcom G6 Sensor Device See Rx Instructions .Route Qty: 3 0RF Rx Instructions: As directed (DME) Ketostix Strip See Rx Instructions .ROUTE .MEDSUPPLY Qty: 25 11RF Rx Instructions: Check if blood sugars are high > 4 to 6 hours Simbrinza 1-0.2 % Drops,Suspension 1 drp OPHTHALMIC (EYE) BID levothyroxine 50 mcg tablet 50 mcg PO QAM metoprolol succinate 50 mg tablet extended release 24 hr 50 mg PO QAM cyanocobalamin (vitamin B-12) 1,000 mcg tablet 1,000 mcg PO QAM omeprazole 40 mg capsule,delayed release(DR/EC) 40 mg PO QAM escitalopram oxalate 20 mg tablet 20 mg PO QAM insulin glargine [Lantus Solostar U-100 Insulin] 100 unit/mL (3 mL) insulin pen 25 unit subcut QPM Patient Comments: noon levothyroxine 200 mcg tablet 200 mcg PO QAM losartan 25 mg tablet 25 mg PO DAILY Discontinued metformin 500 mg tablet 500 mg PO BID Qty: 180 3RF Discharge Orders: Discharge Order (Routine); Ordered 03/25/24 Ordered By: John Reina Admission Data Admit Date/Time: 03/19/24 18:27 Attending Provider: John Reina Admit Provider: Regine Leal Primary Care Provider: Belinda Moreira Other Providers: Tosin Ambrocio; Vianney Spring at [facility] Other Interventions: Discharge Summary Assessment (RN) Last Done: 03/25/24 11:35 Hospital Stay Data Consultations 03/19/24 18:13 ED Decision to Admit Stat Diagnostic Imagining Performed 03/19/24 16:50 CT head/brain wo con Stat Pending Results Patient Have Any Pending Studies at Discharge: No Discharge Instructions Given to Patient (Per Discharging Provider) recommend followup with endocrinology within 1 month. Recommend followup with PCP in 1-2 weeks. Total Time Total Time Spent Total Time Spent (In Minutes): 35 Coding Level of Care Code 07811 INP/OBS DISCH >30 MIN Diagnoses DKA (diabetic ketoacidosis) E11.10 Recurrent falls R29.6 Acute metabolic encephalopathy G93.41 Acquired hypothyroidism E03.9 Hypothyroidism type: acquired Anemia of chronic disease D63.8 Hyperkalemia E87.5 Paroxysmal atrial fibrillation I48.0 Essential hypertension I10 Hypertension type: essential hypertension
== END 2024-03-25 14:06 | DRG 637 ==
LOC: ED 15:07 → SUATTDRO 18:27 → 2S 18:27 → 3W 03-22 18:37

== ENCOUNTER 2024-07-22 14:05 | Inpatient (IN) ==
[2024-07-22 15:03] LABS: Hematocrit (blood only) 35.5 % (42.0-52.0); Hemoglobin 10.6 g/dl (14.0-18.0); Mean Corpuscular Hemoglobin 28.1 pg (25.0-34.0); Mean Corpuscular Hgb Conc 29.9 g/dL (32.0-36.0); Mean Corpuscular Volume 94.2 fL (80.0-100.0); Platelet Count 201 K/uL (130-400); RDW Coefficient of Variation 13.6 % (11.5-14.5); RDW Standard Deviation 46.4 fL (36.4-46.3); Red Blood Count 3.77 M/uL (4.70-6.10); White Blood Count 10.57 K/ul (4.8-10.8)
[2024-07-22 15:29] LABS: Acanthocytes 2+; Basophilic Stippling 1+; Basophils # (auto) 0.03 K/uL (0.00-0.20); Basophils % (auto) 0.3 %; Echinocytes 2+; Eosinophils # (auto) 0.02 K/uL (0.00-0.50); Eosinophils % (auto) 0.2 %; Immature Granulocytes # (auto) 0.09 K/uL (0.01-0.20); Immature Granulocytes % (auto) 0.9 %; Lymphocytes # (auto) 0.47 K/uL (1.20-3.40); Lymphocytes % (auto) 4.4 %; Monocytes # (auto) 0.28 K/uL (0.11-0.59); Monocytes % (auto) 2.6 %; Neutrophils # (auto) 9.68 K/uL (1.40-6.50); Neutrophils % (auto) 91.6 %; Poikilocytosis Present; Polychromasia 1+
[2024-07-22] MEDS: SODIUM CHLORIDE 0.9% 1,000 ML IV SCH ×2 (15:39→17:39)
[2024-07-22 15:43] LABS: Albumin Globulin Ratio 1.3 (0.9-2); Albumin Level 3.9 gm/dl (3.4-5.0); BUN Creatinine Ratio 18.4 (10-20); Bilirubin,Total 0.6 mg/dl (0.2-1.0); Calcium 8.4 mg/dl (8.6-10.3); Creatinine Clr Calc Pharmacy 47.4 ml/min; Potassium 5.6 mmol/L (3.5-5.1); Total Protein 6.9 gm/dl (6.0-8.3)
[2024-07-22 15:45] LABS: Base Excess VBG -22.4 mEq/L; HCO3 VBG 7 mmol/L; Oxygen Saturation VBG 87.6 %; PCO2 VBG 24 mmHg (38-50); PO2 VBG 62 mmHg; pH VBG 7.05 (7.36-7.41)
[2024-07-22] MEDS ORDERED: GLUCAGON FOR INJ 1 MG VIAL SQ PRN (15:45)
[2024-07-22] MEDS ORDERED: GLUCOSE 40% GEL 15 GM TUBE PO PRN (15:45)
[2024-07-22 15:50] LABS: Appearance Urine Clear (Clear); Bacteria Urine Automated None Seen (None Seen); Bilirubin Urine Negative (Negative); Blood Urine Negative (Negative); Color Urine Yellow; Epithelial Cell Urine Auto 0-2 /hpf (0-2); Glucose Urine UA 2+ (Negative); Ketones Urine 2+ (Negative); Leukocyte Esterase Urine Negative (Negative); Nitrite Urine Negative (Negative); Protein Urine 1+ (Negative); RBC Urine Automated 0-2 /hpf (0-2); Specific Gravity Urine 1.026 (1.000-1.030); Urobilinogen Urine Negative (Negative); WBC Urine Automated 0-5 /hpf (0-5)
--- NOTE | 2024-07-22 15:52 | Emergency Department Note ---
Impression & Plan DKA (diabetic ketoacidosis), Acute confusion ED Provider Note NAME: MILLICENT HARVEY AGE: 74 SEX: M : 1950 ARRIVES VIA: Walk-In INFORMANT: Patient, ED PROVIDER(S): Ryan Demarco MD CHIEF COMPLAINT: Confusion, elevated blood sugar HPI: This is a 74-year-old male presenting for confusion elevated blood sugar. Patient was seen about 1 week ago with a subdural hematoma. He was sent to outside facility where he was observed and sent home. Otherwise he had a repeat scan today which appears to be negative. He presenting for more confusion at this time. They checked a blood sugar at the lab and is over 600 presenting for further evaluation. Has had previous elevated blood sugar and confusion similar to this with sugars over 900. He is admitted for multiple days at that time. Patient has been falling more frequently over the last few days since he returned home. No head trauma reported by . ROS: See above HPI for pertinent positives & negatives. A total of 10 systems reviewed and were otherwise negative. PAST MEDICAL HISTORY: See Below PAST SURGICAL HISTORY: See Below FAMILY HISTORY: See Below SOCIAL HISTORY: See Below HOME MEDICATIONS: See Below ALLERGIES: See Below VITALS: See Below PHYSICAL EXAMINATION: General: resting comfortably in no acute distress Head: Normocephalic and atraumatic Eyes: Normal inspection, extraocular muscles intact Ear, nose, throat: Normal external exam Neck: Normal range of motion Respiratory: lungs clear to auscultation bilaterally Cardiovascular: Regular rate/rhythm, no murmur GI: soft, nontender, no guarding or rebound Extremities: nontender, moves all extremities Neuro: Confused, not oriented, no focal deficits Skin: Warm, dry, and intact MEDICAL DECISION MAKING: This is a 74-year-old male presented for confusion and elevated blood sugar. Concern for HHS versus DKA. Patient blood sugar is over 600 on [id number]. Lab values 795. He appears to be significant confused, attempted to eat the blanket currently. He has no focal deficits however. Will check urinalysis, basic blood work, VBG. -CT scan done today reveals resolved intracranial hemorrhage. -Patient appears to be in DKA/HHS with a pH of 7.05, elevated blood glucose of 95. Corrected sodium is 143, potassium 5.6 -Patient given 2 L of resuscitation initially. Will start IV insulin due to the new acidosis that is noted -Patient admitted to hospitalist service for DKA/HHS Differential diagnosis: DKA, HHS, intracranial hemorrhage, sepsis, UTI Independent History obtained from: Diagnostics interpreted by me: ECG: None Cardiac Monitoring: An order was placed for continuous cardiac monitoring. The monitor shows a rate of 94 with sinus rhythm. Critical Care Note: I have personally spent 35 minutes of critical care time in the direct management of this patient. This includes bedside care, interpretation of diagnostic studies, and testing, discussion with consultants, patient, and family members, and other required patient management activities. This 35 minutes is in excess of all separately billable procedures. Past Med/Surg History Problem List (Updated 07/22/24 @ 18:00 by Ryan Demarco MD) Acute confusion (Acute) DKA (diabetic ketoacidosis) (Acute) History of subdural hematoma Diabetic ketoacidosis SDH (subdural hematoma) (Acute) Anticoagulant long-term use (Acute) Reactive depression (situational) Personal history of diabetic foot ulcer Type 1 diabetes mellitus with obesity (Acute) Iron deficiency anemia Paroxysmal atrial fibrillation Low back pain Recurrent falls Coronary artery calcification seen on CAT scan Osteoporosis Albuminuria Diabetic nephropathy associated with type 1 diabetes mellitus Proliferative diabetic retinopathy associated with type 1 diabetes mellitus Hypothyroidism Hypertension Dyslipidemia Diabetic peripheral neuropathy associated with type 1 diabetes mellitus Diabetes mellitus type 1, uncontrolled (Chronic) Balance problem Medical History History of diabetic ketoacidosis Bilateral edema of lower extremity GERD (gastroesophageal reflux disease) Chronic allergic rhinitis Sensorineural hearing loss of both ears Vitamin D deficiency Legally blind H/O osteoporotic pathological fracture Glaucoma Temporomandibular joint disorder Surgical History History of partial knee replacement H/O cystoscopy History of tonsillectomy H/O colonoscopy Hx of foot surgery H/O hand surgery History of tooth extraction History of cataract surgery Family History Father Pulmonary embolism Unknown Leukemia Diabetes Cancer Hypertension Mother No problems noted. Other No family history of adverse response to anesthesia No family history of bleeding disorder Denies family history of Ovarian cancer Prostate cancer Myocardial infarction Breast cancer Colorectal cancer Stroke Social History Smoking Status: Former smoker Tobacco Type: Cigarettes Age Started Using Tobacco: 16; Age Quit Using Tobacco: 21; packs per day: 1; Second Hand Exposure: No; Do You Dip or Chew Tobacco: No; Hx Alcohol Use: No Hx Substance Use: No Preferred Language: Bengali Communication Ability: Effective Communication Ability Comment: Legally Blind Visual Impairment: Severely Limited Hearing Ability: Normal [employer] Consultant Required: No Beliefs That Will Affect Care: None marital status: Current Living Situation: Spouse Current Living Situation Comment: lives with in [place] current 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 status: 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 How many Children do You have: 2 How many Children do You have Comment: daughters Feels Safe at Home: Yes Childhood Exposure to Second-Hand Smoke: Yes Diet: regular caffeine: Yes Dental Care, Regularly: No Physical Activity Frequency: Does not Exercise Seatbelt Use: always Sunscreen Use: No Assistive Devices: Cane, Denture - Upper, Denture - Lower, Hearing Aid - Bilateral, Walker and Other Allergies Allergies Allergy/AdvReac Type Severity Reaction Status Date / Time Iodinated Contrast Media Allergy Intermediate Redness/Sore/Swelling Verified 07/22/24 11:29 at site iodine Allergy Intermediate Redness/Chato Verified 07/22/24 11:29 fl Home Meds Home Medications Medication Instructions Recorded Confirmed brinzolamide 1 %-brimonidine 0.2 % 1 drp ophthalmic (eye) BID 07/08/18 07/22/24 eye drops,suspension (Simbrinza) blood-glucose sensor (Dexcom G7 04/20/24 07/22/24 Sensor device) [id number] 250 mg-dha 90 1 cap PO DAILY 04/21/24 07/22/24 mg-epa 160 [id number]-[id number] capsule (Ocuvite Adult 50 Plus) multivitamin (One Daily 1 tab PO DAILY 04/21/24 07/22/24 Multivitamin tablet) docusate sodium 100 mg capsule 200 mg PO HS 06/03/24 07/22/24 (Colace) escitalopram oxalate 20 mg tablet 20 mg PO QAM 06/03/24 07/22/24 (Lexapro) losartan 25 mg tablet 25 mg PO QAM 06/03/24 07/22/24 omeprazole 40 mg capsule,delayed 40 mg PO HS 06/03/24 07/22/24 release ferrous sulfate 324 mg (65 mg 324 mg PO BID 06/08/24 07/22/24 iron) tablet,delayed release insulin glargine 100 unit/mL (3 17 unit subcut BID 07/17/24 07/22/24 mL) subcutaneous pen (Lantus Solostar U-100 Insulin) levetiracetam 500 mg tablet 500 mg PO BID 07/17/24 07/22/24 Previous Rx's Medication Instructions Recorded BD Ultra-Fine Verito Pen Needle 32 #500 ea 07/29/23 gauge x 5/32" (pen needle, diabetic) acetone (urine) test (Ketostix #25 ea 10/04/23 strips) thiamine HCl (vitamin B1) 100 mg 200 mg (2 x 100 mg) PO QAM #30 tabs 03/25/24 tablet acetaminophen 500 mg tablet 500 - 1,000 mg (1 - 2 x 500 mg) PO 05/06/24 (Tylenol Extra Strength) Q8H PRN pain #90 tabs apixaban 5 mg tablet (Eliquis) 5 mg PO BID #180 tabs 05/06/24 atorvastatin 80 mg tablet 80 mg PO QPM #90 tabs 05/06/24 cyanocobalamin (vitamin B-12) 1,000 mcg PO QAM #90 tabs 05/06/24 1,000 mcg tablet insulin lispro 100 unit/mL See Rx Instructions .Route 05/06/24 subcutaneous pen (Humalog KwikPen .COMPLEX #75 mL (U-100) Insulin) levothyroxine 200 mcg tablet 200 mcg PO QAM #90 tabs 05/06/24 levothyroxine 50 mcg tablet 50 mcg PO QAM #90 tabs 05/06/24 metoprolol succinate 50 mg 50 mg PO QAM #90 tabs 05/06/24 tablet,extended release 24 hr cholecalciferol (vitamin D3) 125 250 mcg (2 x 125 mcg (5,000 unit)) 06/15/24 mcg (5,000 unit) tablet (Vitamin PO QAM #60 tabs D3) Results & Data (ED) Vital Signs Vital Signs - 24 hr 07/22/24 14:10 07/22/24 14:39 07/22/24 14:45 Temperature 36.4 C L Temperature Source Oral Pulse Rate 96 H 96 H Pulse Rate [Apical] Pulse Rate from SpO2 Sensor 97 H Respiratory Rate 16 28 H Respiratory Effort / Characteristics Non-Labored Spontaneous Respiratory Depth Normal Respiratory Pattern Regular Blood Pressure 133/69 113/46 L 112/49 L Blood Pressure [Left Arm] Blood Pressure Mean 90 88 63 Blood Pressure Mean [Left Arm] Pulse Oximetry 99 Oxygen Delivery Method Room Air Sepsis Recent Fever Within 48 Hours No Sepsis New/Unexplained Change in Mental Status No Sepsis Action Taken by Nursing No Action Required 07/22/24 15:00 07/22/24 15:15 07/22/24 15:53 Temperature Temperature Source Pulse Rate 97 H 94 H 90 Pulse Rate [Apical] Pulse Rate from SpO2 Sensor 96 H 93 H 90 Respiratory Rate 22 23 23 Respiratory Effort / Characteristics Respiratory Depth Respiratory Pattern Blood Pressure 111/45 L 112/47 L 80/61 L Blood Pressure [Left Arm] Blood Pressure Mean 67 68 67 Blood Pressure Mean [Left Arm] Pulse Oximetry 98 97 97 Oxygen Delivery Method Sepsis Recent Fever Within 48 Hours Sepsis New/Unexplained Change in Mental Status Sepsis Action Taken by Nursing 07/22/24 16:05 07/22/24 16:05 07/22/24 16:07 Temperature Temperature Source Pulse Rate 91 H Pulse Rate [Apical] 90 Pulse Rate from SpO2 Sensor Respiratory Rate 14 Respiratory Effort / Characteristics Respiratory Depth Respiratory Pattern Blood Pressure 113/49 L Blood Pressure [Left Arm] 113/49 L Blood Pressure Mean 68 Blood Pressure Mean [Left Arm] 70 Pulse Oximetry 97 Oxygen Delivery Method Room Air Sepsis Recent Fever Within 48 Hours Sepsis New/Unexplained Change in Mental Status Sepsis Action Taken by Nursing 07/22/24 16:17 07/22/24 16:30 07/22/24 16:45 Temperature Temperature Source Pulse Rate 88 88 88 Pulse Rate [Apical] Pulse Rate from SpO2 Sensor 88 91 H 88 Respiratory Rate 23 24 24 Respiratory Effort / Characteristics Respiratory Depth Respiratory Pattern Blood Pressure 113/48 L 108/58 L 111/52 L Blood Pressure [Left Arm] Blood Pressure Mean 69 74 71 Blood Pressure Mean [Left Arm] Pulse Oximetry 98 81 L 98 Oxygen Delivery Method Sepsis Recent Fever Within 48 Hours Sepsis New/Unexplained Change in Mental Status Sepsis Action Taken by Nursing 07/22/24 17:02 07/22/24 17:16 07/22/24 17:32 Temperature Temperature Source Pulse Rate 87 92 H Pulse Rate [Apical] Pulse Rate from SpO2 Sensor 88 92 H Respiratory Rate 24 27 H Respiratory Effort / Characteristics Respiratory Depth Respiratory Pattern Blood Pressure 98/78 L 80/64 L 115/46 L Blood Pressure [Left Arm] Blood Pressure Mean 84 66 69 Blood Pressure Mean [Left Arm] Pulse Oximetry 98 100 Oxygen Delivery Method Sepsis Recent Fever Within 48 Hours Sepsis New/Unexplained Change in Mental Status Sepsis Action Taken by Nursing 07/22/24 17:47 Temperature Temperature Source Pulse Rate 94 H Pulse Rate [Apical] Pulse Rate from SpO2 Sensor Respiratory Rate 24 Respiratory Effort / Characteristics Respiratory Depth Respiratory Pattern Blood Pressure Blood Pressure [Left Arm] Blood Pressure Mean Blood Pressure Mean [Left Arm] Pulse Oximetry 96 Oxygen Delivery Method Sepsis Recent Fever Within 48 Hours Sepsis New/Unexplained Change in Mental Status Sepsis Action Taken by Nursing Laboratory Data 07/22/24 14:41 07/22/24 14:41 Lab Results 07/22/24 07/22/24 07/22/24 Range/Units 14:13 14:41 15:12 WBC 10.57 (4.8-10.8) K/ul RBC 3.77 L (4.70-6.10) M/uL Hgb 10.6 L (14.0-18.0) g/dl Hct 35.5 L (42.0-52.0) % MCV 94.2 (80.0-100.0) fL MCH 28.1 (25.0-34.0) pg MCHC 29.9 L (32.0-36.0) g/dL RDW Std Deviation 46.4 H (36.4-46.3) fL RDW Coeff of Roland 13.6 (11.5-14.5) % Plt Count 201 (130-400) K/uL MPV 11.0 (9.4-12.4) fL Immature Gran % (Auto) 0.9 % Neut % (Auto) 91.6 % Lymph % (Auto) 4.4 % Antelope % (Auto) 2.6 % Eos % (Auto) 0.2 % Baso % (Auto) 0.3 % Neut # (Auto) 9.68 H (1.40-6.50) K/uL Lymph # (Auto) 0.47 L (1.20-3.40) K/uL Antelope # (Auto) 0.28 (0.11-0.59) K/uL Eos # (Auto) 0.02 (0.00-0.50) K/uL Baso # (Auto) 0.03 (0.00-0.20) K/uL Immature Gran # (Auto) 0.09 (0.01-0.20) K/uL Polychromasia 1+ Poikilocytosis Present Basophilic Stippling 1+ Echinocytes 2+ Acanthocytes (Spur) 2+ VBG pH (7.36-7.41) VBG pCO2 (38-50) mmHg VBG pO2 mmHg VBG HCO3 mmol/L VBG O2 Saturation % VBG Base Excess mEq/L Sodium 126 L (136-145) mmol/L Potassium 5.6 H (3.5-5.1) mmol/L Chloride 90 L (98-107) mmol/L Carbon Dioxide 10 L (21-32) mmol/L Anion Gap 26 H (3-11) BUN 26 H (6-23) mg/dl Creatinine 1.41 H (0.6-1.4) mg/dl Est Cr Clr Drug Dosing 47.4 ml/min eGFR 51.65 BUN/Creatinine Ratio 18.4 (10-20) Glucose 795 H* (70-99(Fasting)) mg/dl POC Glucose > 600 H* (70-99) mg/dl Calcium 8.4 L (8.6-10.3) mg/dl Total Bilirubin 0.6 (0.2-1.0) mg/dl AST 13 (13-39) U/L ALT 13 (7-52) U/L Alkaline Phosphatase 101 (34-104) U/L Total Protein 6.9 (6.0-8.3) gm/dl Albumin 3.9 (3.4-5.0) gm/dl Globulin 3.0 (2.5-4.0) gm/dl Albumin/Globulin Ratio 1.3 (0.9-2) Urine Color Yellow Urine Appearance Clear (Clear) Urine pH 5.0 (4.5-7.5) Ur Specific [place] 1.026 (1.000-1.030) Urine Protein 1+ H (Negative) Urine Glucose (UA) 2+ H (Negative) Urine Ketones 2+ H (Negative) Urine Blood Negative (Negative) Urine Nitrite Negative (Negative) Urine Bilirubin Negative (Negative) Urine Urobilinogen Negative (Negative) Ur Leukocyte Esterase Negative (Negative) Urine WBC (Auto) 0-5 (0-5) /hpf Urine RBC (Auto) 0-2 (0-2) /hpf U Hyaline Cast (Auto) 6-10 H (0-2) /lpf U Epithel Cells (Auto) 0-2 (0-2) /hpf Urine Bacteria (Auto) None Seen (None Seen) Adenovirus (PCR) (NotDetected) B. pertussis DNA (PCR) (NotDetected) B.parapertussis DNA PCR (NotDetected) C. pneumoniae DNA (PCR) (NotDetected) Coronavirus OC43 (PCR) (NotDetected) Coronavirus HKU1 (PCR) (NotDetected) Coronavirus 229E (PCR) (NotDetected) SARS-CoV-2 (PCR) (NotDetected) Coronavirus NL63 (PCR) (NotDetected) Human Metapneumovir PCR (NotDetected) Influenza Type A (PCR) (NotDetected) Influenza Type B (PCR) (NotDetected) M. pneumoniae (PCR) (NotDetected) Parainfluenza 1 (PCR) (NotDetected) Parainfluenza 2 (PCR) (NotDetected) Parainfluenza 3 (PCR) (NotDetected) Parainfluenza 4 (PCR) (NotDetected) RSV (PCR) (NotDetected) Entero/Rhino (PCR) (NotDetected) 07/22/24 07/22/24 Range/Units 15:37 16:49 WBC (4.8-10.8) K/ul RBC (4.70-6.10) M/uL Hgb (14.0-18.0) g/dl Hct (42.0-52.0) % MCV (80.0-100.0) fL MCH (25.0-34.0) pg MCHC (32.0-36.0) g/dL RDW Std Deviation (36.4-46.3) fL RDW Coeff of Roland (11.5-14.5) % Plt Count (130-400) K/uL MPV (9.4-12.4) fL Immature Gran % (Auto) % Neut % (Auto) % Lymph % (Auto) % Antelope % (Auto) % Eos % (Auto) % Baso % (Auto) % Neut # (Auto) (1.40-6.50) K/uL Lymph # (Auto) (1.20-3.40) K/uL Antelope # (Auto) (0.11-0.59) K/uL Eos # (Auto) (0.00-0.50) K/uL Baso # (Auto) (0.00-0.20) K/uL Immature Gran # (Auto) (0.01-0.20) K/uL Polychromasia Poikilocytosis Basophilic Stippling Echinocytes Acanthocytes (Spur) VBG pH 7.05 L (7.36-7.41) VBG pCO2 24 L (38-50) mmHg VBG pO2 62 mmHg VBG HCO3 7 mmol/L VBG O2 Saturation 87.6 % VBG Base Excess -22.4 mEq/L Sodium (136-145) mmol/L Potassium (3.5-5.1) mmol/L Chloride (98-107) mmol/L Carbon Dioxide (21-32) mmol/L Anion Gap (3-11) BUN (6-23) mg/dl Creatinine (0.6-1.4) mg/dl Est Cr Clr Drug Dosing ml/min eGFR BUN/Creatinine Ratio (10-20) Glucose (70-99(Fasting)) mg/dl POC Glucose > 600 H* (70-99) mg/dl Calcium (8.6-10.3) mg/dl Total Bilirubin (0.2-1.0) mg/dl AST (13-39) U/L ALT (7-52) U/L Alkaline Phosphatase (34-104) U/L Total Protein (6.0-8.3) gm/dl Albumin (3.4-5.0) gm/dl Globulin (2.5-4.0) gm/dl Albumin/Globulin Ratio (0.9-2) Urine Color Urine Appearance (Clear) Urine pH (4.5-7.5) Ur Specific [place] (1.000-1.030) Urine Protein (Negative) Urine Glucose (UA) (Negative) Urine Ketones (Negative) Urine Blood (Negative) Urine Nitrite (Negative) Urine Bilirubin (Negative) Urine Urobilinogen (Negative) Ur Leukocyte Esterase (Negative) Urine WBC (Auto) (0-5) /hpf Urine RBC (Auto) (0-2) /hpf U Hyaline Cast (Auto) (0-2) /lpf U Epithel Cells (Auto) (0-2) /hpf Urine Bacteria (Auto) (None Seen) Adenovirus (PCR) Not Detected (NotDetected) B. pertussis DNA (PCR) Not Detected (NotDetected) B.parapertussis DNA PCR Not Detected (NotDetected) C. pneumoniae DNA (PCR) Not Detected (NotDetected) Coronavirus OC43 (PCR) Not Detected (NotDetected) Coronavirus HKU1 (PCR) Not Detected (NotDetected) Coronavirus 229E (PCR) Not Detected (NotDetected) SARS-CoV-2 (PCR) Not Detected (NotDetected) Coronavirus NL63 (PCR) Not Detected (NotDetected) Human Metapneumovir PCR Not Detected (NotDetected) Influenza Type A (PCR) Not Detected (NotDetected) Influenza Type B (PCR) Not Detected (NotDetected) M. pneumoniae (PCR) Not Detected (NotDetected) Parainfluenza 1 (PCR) Not Detected (NotDetected) Parainfluenza 2 (PCR) Not Detected (NotDetected) Parainfluenza 3 (PCR) Not Detected (NotDetected) Parainfluenza 4 (PCR) Not Detected (NotDetected) RSV (PCR) Not Detected (NotDetected) Entero/Rhino (PCR) Not Detected (NotDetected) Administered Medications Insulin Human Regular 250 (units/ Sodium Chloride) 250 mls @ 9 mls/hr IV .Q24H [facility]; Protocol Stop: 08/21/24 15:44 Last Admin: 07/22/24 16:52 Dose: 9 units/hr, 9 mls/hr Documented By: BMK Co-signed By: ITZEL Sodium Chloride (Nss) 1,000 mls @ 150 mls/hr IV .Q6H40M ALEX Stop: 07/23/24 06:34 Last Admin: 07/22/24 17:39 Dose: 150 mls/hr Documented By: BCN Discontinued Medications Sodium Chloride (Nss) 1,000 mls @ 999 mls/hr IV .Q1H1M ALEX Stop: 07/22/24 17:30 Last Infusion: 07/22/24 17:30 Dose: Infused Documented By: Admin: 07/22/24 16:08 Dose: 999 mls/hr Documented By: MARIA EUGENIA Infusion: 07/22/24 16:08 Dose: Infused Documented By: MARIA EUGENIA Admin: 07/22/24 15:39 Dose: 999 mls/hr Documented By: MARIA EUGENIA Miscellaneous (Hhs Goal Range 250-350 Mg/Dl) 1 each N/A ONE ONE Stop: 07/22/24 15:46 Last Admin: 07/22/24 17:30 Dose: 1 each Documented By: MONI Miscellaneous (Stat Iv Infusion Titration Per Protocol) 1 each N/A NOW STA Stop: 07/22/24 15:46 Last Admin: 07/22/24 17:09 Dose: Not Given Documented By: MNE Discharge Plan Visit Data Chief Complaint: Hyperglycemia Stated Complaint: HIGH BLOOD SUGAR ED Provider: Ryan Demarco Discharge Problem: DKA (diabetic ketoacidosis), Acute confusion Forms Stand Alone Forms: [facility] Prescriptions Prescriptions: No Action (DME) pen needle, diabetic [BD Ultra-Fine Verito Pen Needle] 32 gauge x 5/32" needle See Rx Instructions .ROUTE .MEDSUPPLY Qty: 500 3RF Rx Instructions: Use 5 daily to inject insulin (DME) Dexcom G7 Sensor Device See Rx Instructions .Route Rx Instructions: As directed acetaminophen [Tylenol Extra Strength] 500 mg tablet 500 - 1,000 mg PO Q8H PRN (Reason: pain) Qty: 90 3RF Eliquis 5 mg tablet 5 mg PO BID Qty: 180 3RF Hold Instructions: DO NOT TAKE UNTIL 07/22 MORNING DOSE. atorvastatin 80 mg tablet 80 mg PO QPM Qty: 90 3RF Rx Instructions: for cholesterol cyanocobalamin (vitamin B-12) 1,000 mcg tablet 1,000 mcg PO QAM Qty: 90 3RF insulin lispro [Humalog KwikPen Insulin] 100 unit/mL insulin pen See Rx Instructions .ROUTE .COMPLEX MDD 75 units Qty: 75 3RF Rx Instructions: Lispro 15U w/ B, 12U L, 7U supper + additional per sliding scale levothyroxine 50 mcg tablet 50 mcg PO QAM Qty: 90 3RF levothyroxine 200 mcg tablet 200 mcg PO QAM Qty: 90 3RF metoprolol succinate 50 mg tablet extended release 24 hr 50 mg PO QAM Qty: 90 3RF cholecalciferol (vitamin D3) [Vitamin D3] 125 mcg (5,000 unit) tablet 250 mcg PO QAM Qty: 60 11RF Ocuvite Adult 50 Plus 250 mg (90 mg-160 mg) capsule 1 cap PO DAILY multivitamin [One Daily Multivitamin] Tablet 1 tab PO DAILY ferrous sulfate 324 mg (65 mg iron) tablet,delayed release (DR/EC) 324 mg PO BID insulin glargine [Lantus Solostar U-100 Insulin] 100 unit/mL (3 mL) insulin pen 17 unit subcut BID Patient Comments: CONFIRMED ON 07/17/24 W/ PT'S Rx Instructions: 17 UNITS AT LUNCH, 17 UNITS HS levetiracetam 500 mg tablet 500 mg PO BID Patient Comments: CONFIRMED W/ PT'S ON 07/17/24 Rx Instructions: X7 DAYS (DME) Ketostix Strip See Rx Instructions .ROUTE .MEDSUPPLY Qty: 25 11RF Rx Instructions: Check if blood sugars are high > 4 to 6 hours Simbrinza 1-0.2 % Drops,Suspension 1 drp OPHTHALMIC (EYE) BID omeprazole 40 mg capsule,delayed release(DR/EC) 40 mg PO HS losartan 25 mg tablet 25 mg PO QAM docusate sodium [Colace] 100 mg capsule 200 mg PO HS escitalopram oxalate [Lexapro] 20 mg tablet 20 mg PO QAM thiamine HCl (vitamin B1) 100 mg Tablet 200 mg PO QAM Qty: 30 0RF Referrals Referrals: Belinda Wilcox MD [Primary Care Provider] -
--- NOTE | 2024-07-22 16:20 | History & Physical Report ---
Date of Service July 22, 2024 Assessment & Plan (1) Diabetic ketoacidosis: (2) Diabetes mellitus type 1, uncontrolled: (3) History of subdural hematoma: Plan Kvng is a 74-year-old male with PMH of uncontrolled T1DM, DKA, osteoporosis, recurrent falls, CAD, paroxysmal atrial fibrillation (apixaban on hold), iron deficiency anemia, and subdermal hematoma. He presented on 07/[address] scan, but was found to have a BSG greater than 600 on arrival. Patient is a poor historian at this time. #Diabetic ketoacidosis VBG pH 7.05 on arrival Anion gap elevated at 26 on arrival Ketones 2+ in urine BioFire negative While no leukocytosis or fever, will order CXR and blood cultures to r/o infectious etiology Insulin drip started as per DKA protocol Trend BMP, Mag, Phos, and VBGs q4h NSS 1000 mg IV x 2 given in the ED Continue IV fluids with NSS at 150 mL/hr K okay at 5.6 on arrival Once K <5.1, will change to D5 1/2 NSS + K supp Once glucose is <250, will switch to D5 1/2 NS + K supp Strict I&O monitoring Diabetic education consult appreciated #T1DM Last A1c at 8.2% on 06/08/2024 Glucose 795 on arrival Insulin per DKA protocol T1DM diet BSG q1h while on insulin drip Adjust regimen as needed Pharmacy glycemic management consult appreciated in the setting of DKA #Remote history of subdural hematoma Traumatic 6mm subdural hematoma on 07/13 due to fall on Eliquis Transferred to [facility] on 07/[address] on 07/22 reveals resolution of previously described intracranial hemorrhage It was recommended the patient take Keppra x 7 days following discharge on 07/15 He was also recommended that he hold Eliquis x 7 days following discharge on 07/15 Patient is currently being admitted on 07/22 Will discontinue Keppra at this time In the setting of acute confusion and recurrent falls at home, will continue to hold Eliquis, but may be able to restart during hospital course #Altered mental status Patient is unable to provide history at time of admission #Recurrent falls Fall precautions PT/OT evaluations appreciated #ROHIT Mild; BUN 26, creatinine 1.41 (baseline might be around 1.1) Will temporarily hold losartan IV fluids (as above) Trend BMP #Anemia Hgb 10.6 on arrival, down from prior, but around his baseline No signs of active bleeding on clinical exam Suspect chronic, but will trend H&H for now Disposition: Admit to ICU Full code T1DM diet VTE PPx: Hold Eliquis in the setting of recurrent falls/recent subdural; SCDs History of Present Illness Chief Complaint: Hyperglycemia Primary Care Provider: Belinda Wilcox MD Kvng is a 74-year-old male with PMH of uncontrolled T1DM, DKA, osteoporosis, recurrent falls, CAD, paroxysmal atrial fibrillation (apixaban on hold), iron deficiency anemia, and subdermal hematoma. He presented on 07/[address] scan, but was found to have a BSG greater than 600 on arrival. Patient is a poor historian at this time. He is able to convey some recent events, such as his fall, which he reports occurred last Saturday where he hit the back of his head very hard, and had to go to [place] for brain bleed. No sick contacts to his knowledge. He is initially unsure why he came to the hospital today, and does not respond appropriately to all questioning. No family at bedside. However, the ED spoke with his , who reported increased confusion and recurrent falls at home over the past couple days. Patient reports that he not take his medicine today, such as his insulin. Patient is mildly hypotensive at 113/49 at time of admission; vitals otherwise stable. ED course: NSS 1000 mL IV x 2 IV insulin drip Difficult to obtain given patient's altered mental status, however: Patient endorses fatigue, headache, dizziness, and lightheadedness. Patient denies fever, chills, night-sweats, rashes, tick bites, chest pain, SOB, cough, abdominal pain, nausea, vomiting, diarrhea, dysuria, or burning with urination. Attempted to call patient's (Roselia) x 2, but was unable to reach. Left brief voicemail message requesting callback. While patient is currently altered, will plan to leave patient is a full code at this time, as he was a full code in February 2024 and during all prior visits. Attempted to call patient's daughter (Mary), but was unable to reach. Allergies Allergy/AdvReac Type Severity Reaction Status Date / Time Iodinated Contrast Media Allergy Intermediate Redness/Sore/Swelling Verified 07/22/24 11:29 at site iodine Allergy Intermediate Redness/Chato Verified 07/22/24 11:29 ma Home Medications Medication Instructions Recorded Confirmed Type brinzolamide 1 %-brimonidine 0.2 % 1 drp ophthalmic (eye) BID 07/08/18 07/22/24 History eye drops,suspension (Simbrinza) BD Ultra-Fine Verito Pen Needle 32 #500 ea 07/29/23 07/22/24 Rx gauge x 5/32" (pen needle, diabetic) acetone (urine) test (Ketostix #25 ea 10/04/23 07/22/24 Rx strips) thiamine HCl (vitamin B1) 100 mg 200 mg (2 x 100 mg) PO QAM #30 tabs 03/25/24 07/22/24 Rx tablet blood-glucose sensor (Dexcom G7 04/20/24 07/22/24 History Sensor device) [id number] 250 mg-dha 90 1 cap PO DAILY 04/21/24 07/22/24 History mg-epa 160 [id number] capsule (Ocuvite Adult 50 Plus) multivitamin (One Daily 1 tab PO DAILY 04/21/24 07/22/24 History Multivitamin tablet) acetaminophen 500 mg tablet 500 - 1,000 mg (1 - 2 x 500 mg) PO 05/06/24 07/22/24 Rx (Tylenol Extra Strength) Q8H PRN pain #90 tabs apixaban 5 mg tablet (Eliquis) 5 mg PO BID #180 tabs 05/06/24 07/22/24 Rx atorvastatin 80 mg tablet 80 mg PO QPM #90 tabs 05/06/24 07/22/24 Rx cyanocobalamin (vitamin B-12) 1,000 mcg PO QAM #90 tabs 05/06/24 07/22/24 Rx 1,000 mcg tablet insulin lispro 100 unit/mL See Rx Instructions .Route 05/06/24 07/22/24 Rx subcutaneous pen (Humalog KwikPen .COMPLEX #75 mL (U-100) Insulin) levothyroxine 200 mcg tablet 200 mcg PO QAM #90 tabs 05/06/24 07/22/24 Rx levothyroxine 50 mcg tablet 50 mcg PO QAM #90 tabs 05/06/24 07/22/24 Rx metoprolol succinate 50 mg 50 mg PO QAM #90 tabs 05/06/24 07/22/24 Rx tablet,extended release 24 hr docusate sodium 100 mg capsule 200 mg PO HS 06/03/24 07/22/24 History (Colace) escitalopram oxalate 20 mg tablet 20 mg PO QAM 06/03/24 07/22/24 History (Lexapro) losartan 25 mg tablet 25 mg PO QAM 06/03/24 07/22/24 History omeprazole 40 mg capsule,delayed 40 mg PO HS 06/03/24 07/22/24 History release ferrous sulfate 324 mg (65 mg 324 mg PO BID 06/08/24 07/22/24 History iron) tablet,delayed release cholecalciferol (vitamin D3) 125 250 mcg (2 x 125 mcg (5,000 unit)) 06/15/24 07/22/24 Rx mcg (5,000 unit) tablet (Vitamin PO QAM #60 tabs D3) insulin glargine 100 unit/mL (3 17 unit subcut BID 07/17/24 07/22/24 History mL) subcutaneous pen (Lantus Solostar U-100 Insulin) levetiracetam 500 mg tablet 500 mg PO BID 07/17/24 07/22/24 History Past Med/Surg History Problem List (Updated 07/22/24 @ 17:24 by Michael Ramirez PA-C) History of subdural hematoma Diabetic ketoacidosis SDH (subdural hematoma) (Acute) Anticoagulant long-term use (Acute) Reactive depression (situational) Personal history of diabetic foot ulcer Type 1 diabetes mellitus with obesity (Acute) Iron deficiency anemia Paroxysmal atrial fibrillation Low back pain Recurrent falls Coronary artery calcification seen on CAT scan Osteoporosis Albuminuria Diabetic nephropathy associated with type 1 diabetes mellitus Proliferative diabetic retinopathy associated with type 1 diabetes mellitus Hypothyroidism Hypertension Dyslipidemia Diabetic peripheral neuropathy associated with type 1 diabetes mellitus Diabetes mellitus type 1, uncontrolled (Chronic) Balance problem Medical History History of diabetic ketoacidosis Bilateral edema of lower extremity GERD (gastroesophageal reflux disease) Chronic allergic rhinitis Sensorineural hearing loss of both ears Vitamin D deficiency Legally blind H/O osteoporotic pathological fracture Glaucoma Temporomandibular joint disorder Surgical History History of partial knee replacement H/O cystoscopy History of tonsillectomy H/O colonoscopy Hx of foot surgery H/O hand surgery History of tooth extraction History of cataract surgery Family History Father Pulmonary embolism Unknown Leukemia Diabetes Cancer Hypertension Mother No problems noted. Other No family history of adverse response to anesthesia No family history of bleeding disorder Denies family history of Ovarian cancer Prostate cancer Myocardial infarction Breast cancer Colorectal cancer Stroke Social History Smoking Status: Former smoker Tobacco Type: Cigarettes Age Started Using Tobacco: 16; Age Quit Using Tobacco: 21; packs per day: 1; Second Hand Exposure: No; Do You Dip or Chew Tobacco: No; Hx Alcohol Use: No Hx Substance Use: No Preferred Language: Lithuanian Communication Ability: Effective Communication Ability Comment: Legally Blind Visual Impairment: Severely Limited Hearing Ability: Normal 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 Beliefs That Will Affect Care: None marital status: Current Living Situation: Spouse Current Living Situation Comment: lives with in [place] current 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 status: 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 How many Children do You have: 2 How many Children do You have Comment: daughters Feels Safe at Home: Yes Childhood Exposure to Second-Hand Smoke: Yes Diet: regular caffeine: Yes Dental Care, Regularly: No Physical Activity Frequency: Does not Exercise Seatbelt Use: always Sunscreen Use: No Assistive Devices: Cane, Denture - Upper, Denture - Lower, Hearing Aid - Bilateral, Walker and Other Review of Systems Review of Systems: See HPI above Physical Exam Physical Exam: General: no acute distress; disoriented/lethargic; non-toxic appearing; cooperative; SpO2 97% on RA HEENT: normocephalic, atraumatic; no scleral icterus; PERRLA; hearing intact Neck: supple; no lymphadenopathy; trachea midline Skin: warm, dry without signs of tenting; no cyanosis; no rashes, bruising, lesions, or erythema noted CV: chest wall NTP; RRR; S1/S2 normal; no murmurs/rubs/gallops; pulses intact and symmetric at radial, DP, and PT Lungs: no acute respiratory distress; symmetrical chest wall expansion; clear breath sounds across all lung vines w/o adventitious sounds; no wheezing ABD: Soft, NTP; BS present; no rebound/guarding; no distention MSK: no tics or fasciculations; no edema noted in the LEs b/l, nonerythematous Neuro: Patient is oriented to name/; not oriented to location or purpose in the hospital; does not respond appropriately to certain questions, for instance when asked what day of the week it was, he said "May"; normal mood and affect; no facial droop; patient reports sensation is intact and symmetric in the upper and lower extremities bilaterally Results & Data Results & Data Vital Signs (Past 12 Hours) Vital Signs Temp Pulse Pulse Resp BP BP Pulse Ox 07/22/24 16:07 91 H 07/22/24 16:05 90 14 113/49 L 97 07/22/24 14:10 36.4 C L 96 H 16 133/69 99 O2 Del Method 07/22/24 16:07 07/22/24 16:05 Room Air 07/22/24 14:10 Room Air Laboratory Results Abnormal lab results 07/22/24 07/22/24 07/22/24 Range/Units 14:13 14:41 15:12 RBC 3.77 L (4.70-6.10) M/uL Hgb 10.6 L (14.0-18.0) g/dl Hct 35.5 L (42.0-52.0) % MCHC 29.9 L (32.0-36.0) g/dL RDW Std Deviation 46.4 H (36.4-46.3) fL Neut # (Auto) 9.68 H (1.40-6.50) K/uL Lymph # (Auto) 0.47 L (1.20-3.40) K/uL VBG pH (7.36-7.41) VBG pCO2 (38-50) mmHg Sodium 126 L (136-145) mmol/L Potassium 5.6 H (3.5-5.1) mmol/L Chloride 90 L (98-107) mmol/L Carbon Dioxide 10 L (21-32) mmol/L Anion Gap 26 H (3-11) BUN 26 H (6-23) mg/dl Creatinine 1.41 H (0.6-1.4) mg/dl Glucose 795 H* (70-99(Fasting)) mg/dl POC Glucose > 600 H* (70-99) mg/dl Calcium 8.4 L (8.6-10.3) mg/dl Urine Protein 1+ H (Negative) Urine Glucose (UA) 2+ H (Negative) Urine Ketones 2+ H (Negative) U Hyaline Cast (Auto) 6-10 H (0-2) /lpf 07/22/24 Range/Units 15:37 RBC (4.70-6.10) M/uL Hgb (14.0-18.0) g/dl Hct (42.0-52.0) % MCHC (32.0-36.0) g/dL RDW Std Deviation (36.4-46.3) fL Neut # (Auto) (1.40-6.50) K/uL Lymph # (Auto) (1.20-3.40) K/uL VBG pH 7.05 L (7.36-7.41) VBG pCO2 24 L (38-50) mmHg Sodium (136-145) mmol/L Potassium (3.5-5.1) mmol/L Chloride (98-107) mmol/L Carbon Dioxide (21-32) mmol/L Anion Gap (3-11) BUN (6-23) mg/dl Creatinine (0.6-1.4) mg/dl Glucose (70-99(Fasting)) mg/dl POC Glucose (70-99) mg/dl Calcium (8.6-10.3) mg/dl Urine Protein (Negative) Urine Glucose (UA) (Negative) Urine Ketones (Negative) U Hyaline Cast (Auto) (0-2) /lpf ECG Additional Comments: ECG ordered, pending Code Status & VTE Plan Code Status Full code VTE Prophylaxis Plan VTE Prophylaxis will be ordered: Yes Supervising Physician Co-Signing Physician Notes I have personally seen, evaluated and examined the patient. I have also personally discussed the management of the patient with the resident physician/DEVORAH and I agree with the exam findings documented in the history and physical examination and the documented assessment and plan unless otherwise stated below. Brief Exam: In general 74-year-old man. When asked where he was he states "". He is really only oriented to self and partially to place certainly not to time. CT of the brain was reassuring. It appears the patient has not received his full saline bolus was ordered in the ER because he pulled out his IV and he has not been getting his insulin either. Registered nurse at the bedside reobtaining IV access for fluid boluses and insulin drip. Stat labs been ordered as well as a chest x-ray. HEENT: Normocephalic atraumatic. Mucous membranes extraordinarily dry. Heart: Regular no víctor murmur. Lungs: Clear but diminished due to poor inspiratory effort. Abdomen: Soft, nontender. Positive bowel sounds. No appreciable organomegaly. Extremities: Poor skin turgor. Intact. No obvious wounds cutaneously. Neurologically: Pleasantly confused he tells me he is retired from [employer] but cannot tell me exactly what he did at [employer]. Appears to be no focal deficit on examination but he is confused enough to be unable to cooperate fully with cranial nerve exam. Assessment/plan: Admit to the ICU given his altered mental status recent history of subdural hematoma and severe DKA. DKA protocol. Stat chest x-ray and repeat stat labs for assessment. Follow-up on stat labs as well as chest x-ray. Please refer to orders for further planning. Attempt has been made to reach family without success as documented above. I did asked the patient about advanced directives in February he was a full code and I asked if he want attempted cardiopulmonary resuscitation if his heart stops or he quit breathing if he did not answer "yes that is the way it is". PG Care Time/CCT Total # of Minutes Spent Total Time Spent with Patient: Total time spent is greater than 50% in coordination of care (as documented) at patient's floor/unit and/or counseling patient: C[place] [address] INT INP/OBS CARE 3/75MIN Patient Type Established Medical Decision Making High Complexity Diagnoses Diabetic ketoacidosis E11.10 Diabetes mellitus type 1, uncontrolled E10.65 History of subdural hematoma Z86.79
[2024-07-22 16:40] LABS: Adenovirus PCR Not Detected (NotDetected); Bordetella parapertussis PCR Not Detected (NotDetected); Bordetella pertussis PCR Not Detected (NotDetected); Chlamydia pneumoniae PCR Not Detected (NotDetected); Coronavirus 229E PCR Not Detected (NotDetected); Coronavirus CoV-2 (COVID19)PCR Not Detected (NotDetected); Coronavirus HKU1 PCR Not Detected (NotDetected); Coronavirus NL63 PCR Not Detected (NotDetected); Coronavirus OC43PCR Not Detected (NotDetected); Human Metapneumovirus PCR Not Detected (NotDetected); Influenza A PCR Not Detected (NotDetected); Influenza B PCR Not Detected (NotDetected); Mycoplasma pneumoniae PCR Not Detected (NotDetected); Parainfluenza Virus 1 PCR Not Detected (NotDetected); Parainfluenza Virus 2 PCR Not Detected (NotDetected); Parainfluenza Virus 3 PCR Not Detected (NotDetected); Parainfluenza Virus 4 PCR Not Detected (NotDetected); Respiratory Syncytial VirusPCR Not Detected (NotDetected); Rhinovirus/Enterovirus PCR Not Detected (NotDetected)
[2024-07-22] MEDS: INSULIN REGULAR 250 UNITS in SODIUM CHLORIDE 0.9% 247.5 ML IV SCH (16:52)
[2024-07-22] MEDS: STAT IV Infusion **Titration per Protocol STA (17:09)
[2024-07-22] MEDS: HHS GOAL RANGE 250-350 mg/dl ONE (17:30)
[2024-07-22 18:40] LABS: Hematocrit (blood only) 34.9 % (42.0-52.0); Hemoglobin 10.6 g/dl (14.0-18.0)
[2024-07-22 19:06] LABS: BUN Creatinine Ratio 17.9 (10-20); Calcium 7.7 mg/dl (8.6-10.3); Creatinine Clr Calc Pharmacy 41.2 ml/min; Potassium 5.5 mmol/L (3.5-5.1)
[2024-07-22 19:12] LABS: Thyroid Stimulating Hormone 0.479 uIu/ml (0.300-4.500)
[2024-07-22] MEDS: LACTATED RINGER'S 1,000 ML IV SCH (19:20)
[2024-07-22] MEDS: PENDING D5 1/2NS+20mEq KCL IVF SCH (19:22)
[2024-07-22] MEDS: INSULIN ASPART PER UNIT CHARGE SC SCH (19:22)
[2024-07-22] MEDS: PENDING 1/2NSS+20mEq KCL IVF SCH (19:22)
[2024-07-22] MEDS: LACTATED RINGER'S 1,000 ML IV ONE (19:28)
[2024-07-22] MEDS: DKA GOAL RANGE 150-250 mg/dl ONE (19:28)
--- NOTE | 2024-07-22 19:39 | XRay Report ---
Technique: A frontal view of the chest was obtained Comparison is made to the prior examination dated 07/13/2024 Findings: There are no definite pulmonary infiltrates. The heart size is within normal limits. No pleural effusion or pneumothorax is seen. There is no definite pulmonary nodule. There are old healed right rib fractures Impression: No active disease Electronically signed by Tae Gentile 07-22-2024 7:38 PM
[2024-07-22 20:25] LABS: BUN Creatinine Ratio 17.8 (10-20); Calcium 7.8 mg/dl (8.6-10.3); Creatinine Clr Calc Pharmacy 40.2 ml/min; Magnesium 2.1 mg/dl (1.7-2.4); Phosphorus 6.1 mg/dl (2.5-4.9); Potassium 4.7 mmol/L (3.5-5.1)
[2024-07-22] MEDS: ATORVASTATIN 40 MG TAB PO SCH (20:35)
[2024-07-22] MEDS: DOCUSATE SODIUM 100 MG CAP PO SCH (20:35)
[2024-07-22] MEDS: PANTOprazole 40 MG TAB PO SCH (20:36)
[2024-07-22] MEDS: FERROUS GLUCONATE 324 MG TAB PO SCH (20:36)
--- NOTE | 2024-07-22 20:49 | Critical Care Consultation ---
Date of Consultation July 22, 2024 Assessment & Plan (1) Metabolic encephalopathy: (2) DKA (diabetic ketoacidosis): (3) History of subdural hematoma: (4) Type 1 diabetes mellitus with obesity: (5) Recurrent falls: Plan Reason Critically Ill: DKA Acute metabolic encephalopathy ROHIT on CKD, prerenal Hypovolemia Rx noncompliance Frequent falls SDH, resolved HAGMA 2/2 ketosis and lactic acidosis Prolonged QTc Junctional rhythm replacing NSR Neuro RASS GOAL 0 Hopeful that mentation will improve with resolution of underlying issues, can consider Precedex if needed APAP PRN pain/fever Fall risk, PT/OT. Patient declined discharged to rehab last admission CTH shows resolution of small SDH Cardiac - IVF as below MAP goal > 65mmHg Admit EKG accelerated junctional rhythm with PVCs, prolonged QTc Avoid QT-prolonging medications Home statin, BB as clinically feasible Respiratory - Compensatory tachypnea SpO2 goal > 92% CXR no acute issues GI - Diet: Strict NPO until improvement SUP: Home PPI Bowel regimen: Miralax RENAL/LYTES - Prerenal ROHIT Replete electrolytes as indicated Brice for accurate I/Os, remove in AM Additional 1L LR now, continue mIVF at 150cc/hr ENDO - Continue insulin infusion protocol Once BG < 250 will transition to D5-containing IVF Hold if K < 3.2 BMP Q4H until gap closed x2 HEME - No acute concerns Holding Eliquis given recent falls Consider restarting in next 24-48 hours ID - No acute concerns Monitor off antibiotics, trend fever curve, WBC RVP (-), UA (-), BC x2 pending LINES/TUBES/DRAINS - Brice (Day #1) PIVx2 DVT PROPHYLAXIS - Start SQH in AM I have personally spent 35 minutes of critical care time in the direct management of this patient. This is a life/limb threatening event. This includes time spent evaluating patient, direct bedside care, chart review, placing orders, interpretation of diagnostic studies, discussion with consultants, patient, and family members, as well as other required patient management activities. This time is exclusive of all separately billable procedures, and teaching time and separate from and in addition to any other critical care service time. Thank you for allowing us to participate in the care of this patient. Please refer to my attending physician's documentation for any further recommendations. History of Present Illness Reason for Consultation: DKA Requesting Physician: Uribe Attending Physician: Anthony Uribe, PhD, DO History of Present Illness Mr. Kvng Yoder is a 74YOM with a history of SDH (2024), falls, pAF on Eliquis, GERD, DMI (8.2) who presented to [facility] from home for routine follow up CT head for his known SDH. He was found to have a BG > 600 as well as confusion. He was found to be in DKA and encephalopathic. His CT head showed resolved bleed without acute intracranial abnormality. Hemodynamically stable, though labs show significant metabolic abnormalities. BG 795. ROHIT with K 5.6. pH 7.05. He received 2L NSS and started on insulin infusion. Kvng is admitted to ICU for continuation of care in the setting of DKA. Patient seen in ICU 112. He is awake and alert, not oriented, agitated at times, attempting to get up and out of bed continuously. Denies pain, otherwise unable to elicit. Hemodynamically stable, saturating well on room air. Based on chart reviewed, it appears he has not been taking his Rx for about 1 day according to . This is secondary to confusion. He has also had some recent falls in addition to his fall last week which resulted in SDH and transfer to [facility]. At [facility] patient was observed, discharged on Keppra x7 days and instructed to hold Eliquis x7 days. Allergies Allergy/AdvReac Type Severity Reaction Status Date / Time Iodinated Contrast Media Allergy Intermediate Redness/Sore/Swelling Verified 07/22/24 11:29 at site iodine Allergy Intermediate Redness/Chato Verified 07/22/24 11:29 ma Home Medications Medication Instructions Recorded Confirmed Type brinzolamide 1 %-brimonidine 0.2 % 1 drp ophthalmic (eye) BID 07/08/18 07/22/24 History eye drops,suspension (Simbrinza) BD Ultra-Fine Verito Pen Needle 32 #500 ea 07/29/23 07/22/24 Rx gauge x 5/32" (pen needle, diabetic) acetone (urine) test (Ketostix #25 ea 10/04/23 07/22/24 Rx strips) thiamine HCl (vitamin B1) 100 mg 200 mg (2 x 100 mg) PO QAM #30 tabs 03/25/24 07/22/24 Rx tablet blood-glucose sensor (Dexcom G7 04/20/24 07/22/24 History Sensor device) oolrrekg-hpu- 250 mg-dha 90 1 cap PO DAILY 04/21/24 07/22/24 History mg-epa 160 nl-vglj-uosx-zeax capsule (Ocuvite Adult 50 Plus) multivitamin (One Daily 1 tab PO DAILY 04/21/24 07/22/24 History Multivitamin tablet) acetaminophen 500 mg tablet 500 - 1,000 mg (1 - 2 x 500 mg) PO 05/06/24 07/22/24 Rx (Tylenol Extra Strength) Q8H PRN pain #90 tabs apixaban 5 mg tablet (Eliquis) 5 mg PO BID #180 tabs 05/06/24 07/22/24 Rx atorvastatin 80 mg tablet 80 mg PO QPM #90 tabs 05/06/24 07/22/24 Rx cyanocobalamin (vitamin B-12) 1,000 mcg PO QAM #90 tabs 05/06/24 07/22/24 Rx 1,000 mcg tablet insulin lispro 100 unit/mL See Rx Instructions .Route 05/06/24 07/22/24 Rx subcutaneous pen (Humalog KwikPen .COMPLEX #75 mL (U-100) Insulin) levothyroxine 200 mcg tablet 200 mcg PO QAM #90 tabs 05/06/24 07/22/24 Rx levothyroxine 50 mcg tablet 50 mcg PO QAM #90 tabs 05/06/24 07/22/24 Rx metoprolol succinate 50 mg 50 mg PO QAM #90 tabs 05/06/24 07/22/24 Rx tablet,extended release 24 hr docusate sodium 100 mg capsule 200 mg PO HS 06/03/24 07/22/24 History (Colace) escitalopram oxalate 20 mg tablet 20 mg PO QAM 06/03/24 07/22/24 History (Lexapro) losartan 25 mg tablet 25 mg PO QAM 06/03/24 07/22/24 History omeprazole 40 mg capsule,delayed 40 mg PO HS 06/03/24 07/22/24 History release ferrous sulfate 324 mg (65 mg 324 mg PO BID 06/08/24 07/22/24 History iron) tablet,delayed release cholecalciferol (vitamin D3) 125 250 mcg (2 x 125 mcg (5,000 unit)) 06/15/24 07/22/24 Rx mcg (5,000 unit) tablet (Vitamin PO QAM #60 tabs D3) insulin glargine 100 unit/mL (3 17 unit subcut BID 07/17/24 07/22/24 History mL) subcutaneous pen (Lantus Solostar U-100 Insulin) levetiracetam 500 mg tablet 500 mg PO BID 07/17/24 07/22/24 History Patient History Medical History History of diabetic ketoacidosis Bilateral edema of lower extremity GERD (gastroesophageal reflux disease) Chronic allergic rhinitis Sensorineural hearing loss of both ears Vitamin D deficiency Legally blind H/O osteoporotic pathological fracture Glaucoma Temporomandibular joint disorder Surgical History History of partial knee replacement H/O cystoscopy History of tonsillectomy H/O colonoscopy Hx of foot surgery H/O hand surgery History of tooth extraction History of cataract surgery Family History Father Pulmonary embolism Unknown Leukemia Diabetes Cancer Hypertension Mother No problems noted. Other No family history of adverse response to anesthesia No family history of bleeding disorder Denies family history of Ovarian cancer Prostate cancer Myocardial infarction Breast cancer Colorectal cancer Stroke Social History Smoking Status: Unknown if ever smoked Tobacco Type: Cigarettes Age Started Using Tobacco: 16; Age Quit Using Tobacco: 21; packs per day: 1; Second Hand Exposure: No; Do You Dip or Chew Tobacco: No; Hx Alcohol Use: No Hx Substance Use: No Preferred Language: Azerbaijani Communication Ability: Impaired Communication Ability Comment: Legally Blind Visual Impairment: Severely Limited Hearing Ability: Normal Framing Inspector Required: No Beliefs That Will Affect Care: None marital status: Current Living Situation: Spouse Current Living Situation Comment: lives with in [place] current 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 status: 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 How many Children do You have: 2 How many Children do You have Comment: daughters Feels Safe at Home: Yes Safety Concerns: Feels Safe At This Time Childhood Exposure to Second-Hand Smoke: Yes Diet: regular caffeine: Yes Dental Care, Regularly: No Physical Activity Frequency: Does not Exercise Seatbelt Use: always Sunscreen Use: No Assistive Devices: None Review of Systems Review of Systems: Unobtainable due to cognitive status Physical Exam Constitutional: well developed, well nourished and + behavioral limitations Eyes: PERRL, conjunctivae normal, anicteric sclerae ENMT: Dry MM Neck: trachea midline, no thyromegaly Respiratory: + tachypneic Auscultation: no diminis hed lung sounds, no crackles, no rhonchi and no wheezes Cardiovascular: RRR, no murmur, no edema Gastrointestinal (Abdomen): normal bowel sounds, soft, nontender, no hepatosplenomegaly Skin: no rashes, warm and dry Neurologic: + confused Cranial Nerves: PERRL Moving all extremities ad gu[place] Psychiatric: Orientation: + not oriented to person, + not oriented to place, + not oriented to time and + uncooperative Apperance: + disheveled Eye Contact: + poor eye contact Genitourinary: Brice in place draining light yellow urine Results & Data Results & Data Vital Signs (Past 12 Hours) Vital Signs Temp Pulse Pulse Resp BP BP Pulse Ox 07/22/24 19:32 119/54 L 07/22/24 19:30 96 H 26 H 98 07/22/24 19:03 101 H 26 H 100 07/22/24 19:01 135/49 L 07/22/24 18:43 37.0 C 103 H 16 129/63 99 07/22/24 18:43 104 H 07/22/24 18:43 07/22/24 17:57 118/48 L 07/22/24 17:47 94 H 24 96 07/22/24 17:32 92 H 27 H 115/46 L 100 07/22/24 17:16 80/64 L 07/22/24 17:02 87 24 98/78 L 98 07/22/24 16:45 88 24 111/52 L 98 07/22/24 16:30 88 24 108/58 L 81 L 07/22/24 16:17 88 23 113/48 L 98 07/22/24 16:07 91 H 07/22/24 16:05 113/49 L 07/22/24 16:05 90 14 113/49 L 97 07/22/24 15:53 90 23 80/61 L 97 07/22/24 15:15 94 H 23 112/47 L 97 07/22/24 15:00 97 H 22 111/45 L 98 07/22/24 14:45 96 H 28 H 112/49 L 07/22/24 14:39 113/46 L 07/22/24 14:10 36.4 C L 96 H 16 133/69 99 Pulse Ox O2 Del Method O2 Del Method 07/22/24 19:32 07/22/24 19:30 07/22/24 19:03 07/22/24 19:01 07/22/24 18:43 Room Air 07/22/24 18:43 07/22/24 18:43 99 Room Air 07/22/24 17:57 07/22/24 17:47 07/22/24 17:32 07/22/24 17:16 07/22/24 17:02 07/22/24 16:45 07/22/24 16:30 07/22/24 16:17 07/22/24 16:07 07/22/24 16:05 07/22/24 16:05 Room Air 07/22/24 15:53 07/22/24 15:15 07/22/24 15:00 07/22/24 14:45 07/22/24 14:39 07/22/24 14:10 Room Air Laboratory Results Reviewed Diagnostic Findings Reviewed Medications Administered See MAR Coding Level of Care Code 36823 CRITICAL CARE 1ST 30-74M Diagnoses Metabolic encephalopathy G93.41 DKA (diabetic ketoacidosis) E11.10 History of subdural hematoma Z86.79 Type 1 diabetes mellitus with obesity E10.69; E66.9 Recurrent falls R29.6 Time Spent (min) 35
[2024-07-22] MEDS: ICU Protocol for HYPERglycemia SCH (21:41)
[2024-07-23 01:08] LABS: BUN Creatinine Ratio 17.3 (10-20); Calcium 7.5 mg/dl (8.6-10.3); Creatinine Clr Calc Pharmacy 40.9 ml/min; Magnesium 1.9 mg/dl (1.7-2.4); Phosphorus 2.9 mg/dl (2.5-4.9); Potassium 3.9 mmol/L (3.5-5.1)
[2024-07-23] MEDS ORDERED: POTASSIUM PHOS 3 MMOL/1 ML INFUSION IV STA (01:17)
[2024-07-23] MEDS: POTASSIUM CHLORIDE / WTR 10 MEQ/100 ML PLCT IV SCH ×2 (01:40→05:15)
[2024-07-23] MEDS: MAGNESIUM SULFATE / D5W 1 GM/100 ML BAG IV ONE (01:40)
[2024-07-23] MEDS: POTASSIUM PHOSPHATE 15 MMOL in SODIUM CHLORIDE 0.9% 250 ML IV ONE (01:50)
[2024-07-23 04:36] LABS: BUN Creatinine Ratio 18.3 (10-20); Calcium 7.6 mg/dl (8.6-10.3); Creatinine Clr Calc Pharmacy 44.9 ml/min; Phosphorus 2.3 mg/dl (2.5-4.9); Potassium 3.3 mmol/L (3.5-5.1)
[2024-07-23 04:57] LABS: Basophils # (auto) 0.01 K/uL (0.00-0.20); Basophils % (auto) 0.1 %; Eosinophils # (auto) 0.06 K/uL (0.00-0.50); Eosinophils % (auto) 0.6 %; Hematocrit (blood only) 29.9 % (42.0-52.0); Hemoglobin 9.9 g/dl (14.0-18.0); Immature Granulocytes # (auto) 0.06 K/uL (0.01-0.20); Immature Granulocytes % (auto) 0.6 %; Lymphocytes # (auto) 1.44 K/uL (1.20-3.40); Lymphocytes % (auto) 13.8 %; Mean Corpuscular Hemoglobin 28.6 pg (25.0-34.0); Mean Corpuscular Hgb Conc 33.1 g/dL (32.0-36.0); Mean Corpuscular Volume 86.4 fL (80.0-100.0); Monocytes # (auto) 0.76 K/uL (0.11-0.59); Monocytes % (auto) 7.3 %; Neutrophils # (auto) 8.13 K/uL (1.40-6.50); Neutrophils % (auto) 77.6 %; Platelet Count 203 K/uL (130-400); RDW Coefficient of Variation 13.5 % (11.5-14.5); RDW Standard Deviation 42.5 fL (36.4-46.3); Red Blood Count 3.46 M/uL (4.70-6.10); White Blood Count 10.46 K/ul (4.8-10.8)
[2024-07-23] MEDS: POTASSIUM CHLORIDE 40 MEQ in D5W AND 1/2NSS 1,000 ML IV SCH (05:24)
[2024-07-23] MEDS: LEVOTHYROXINE SODIUM 50 MCG TABLET PO SCH (06:18)
[2024-07-23] MEDS: LEVOTHYROXINE SODIUM 200 MCG TABLET PO SCH (06:18)
[2024-07-23] MEDS: CYANOCOBALAMIN (B-12) 500 MCG TABLET PO SCH (07:45)
[2024-07-23] MEDS: THIAMINE HCL 100 MG TAB PO SCH (07:45)
[2024-07-23] MEDS: ESCITALOPRAM OXALATE 20 MG TAB PO SCH (07:45)
[2024-07-23 08:20] LABS: Calcium 7.3 mg/dl (8.6-10.3); Creatinine Clr Calc Pharmacy 49.7 ml/min; Magnesium 1.9 mg/dl (1.7-2.4); Phosphorus 2.7 mg/dl (2.5-4.9); Potassium 4.4 mmol/L (3.5-5.1)
[2024-07-23] MEDS: HEPARIN SOD 5,000 UNIT/0.5 ML VIAL SQ SCH (08:27)
[2024-07-23 08:30] LABS: Estimated Average Glucose 200 mg/dl; Hemoglobin A1C 8.6 % (4.5-5.6)
[2024-07-23] MEDS: METOPROLOL SUCC 50MG EXT REL TAB PO SCH (08:30)
--- NOTE | 2024-07-23 09:11 | Critical Care Progress Note ---
Date of Service July 23, 2024 Assessment & Plan (1) Metabolic encephalopathy: (2) DKA (diabetic ketoacidosis): (3) History of subdural hematoma: (4) Type 1 diabetes mellitus with obesity: (5) Recurrent falls: Plan Reason Critically Ill: DKA Acute metabolic encephalopathy ROHIT on CKD, prerenal Hypovolemia Rx noncompliance Frequent falls SDH, resolved HAGMA 2/2 ketosis and lactic acidosis Prolonged QTc Junctional rhythm replacing NSR Neuro -- Metabolic encephalopathy Likely secondary to DKA TSH 0.479, within normal limit Corrected calcium within normal limit --History of subdural hematoma [address] head on presentation shows resolution of small SDH Cardiac - -- Prolonged QTc Avoid QT-prolonging medications Home statin, BB as clinically feasible Respiratory - Compensatory tachypnea SpO2 goal > 92% CXR no acute issues GI - -- No acute issues RENAL/LYTES - --Prerenal ROHIT Replete electrolytes as indicated Monitor BUNs/creatinine Avoid nephrotoxic medications ENDO - -- HAGMA Secondary to DKA Continue with insulin drip until anion gap closes Decreasing blood glucose no more than 100 in an hour Replace potassium IV when potassium level between 3.3-5.3 BMP every 4 hours Continue with IV fluids HEME - No acute concerns Holding Eliquis given recent falls ID - No acute concerns Monitor off antibiotics, trend fever curve, WBC UA (-), BC x2 pending --Prophylaxis VTE: Heparin GI: None Lines: Peripheral Diet: N.p.o. Plan: In/out: +5220, urine output 522 Patient's anion gap did close on the labs around 10 AM. Will bridged to subcu insulin and get him off the insulin drip Patient's urine output has been decreasing. Bladder ultrasound was done which did not show any residual urine with Brice in place. While the patient is off of D5 half NS. Will start him on Plasma-Lyte 80 mL/h. Once the patient once he is off insulin drip, we will downgrade the patient to the floor Phosphorus and potassium being replaced Continue with one-to-one for the time being I have personally spent 36 minutes of critical care time in the direct management of this patient. This is a life/limb threatening event. This includes time spent evaluating patient, direct bedside care, chart review, placing orders, interpretation of diagnostic studies, discussion with consultants, patient, and family members, as well as other required patient management activities. This time is exclusive of all separately billable procedures, and teaching time and separate from and in addition to any other critical care service time. Thank you for allowing us to participate in the care of this patient. Please refer to my attending physician's documentation for any further recommendations. Admission and Anticipated Discharge Date Admission Date: July 22, 2024 Subjective Patient seen and examined at bedside. No acute distress, no adverse events overnight Patient was on one-to-one sitter as he still has bouts of confusion and restlessness where he pulls his lines out He denied any chest pain, no shortness of breath No abdominal pain He was oriented to only self Denied any nausea vomiting, no dizziness, no headache Review of Systems 2 Review of Systems: All systems reviewed & are unremarkable except as noted in Subjective Physical Exam 2 Physical Exam: Constitutional: No acute distress HEENT: EOMI, PERRLA Respiratory system: Good air entry bilaterally, no wheeze, no rhonchi, no crackles CVS: S1-S2 positive, no murmurs or gallops Abdomen: Soft, nontender, nondistended, positive bowel sounds x4, obese Extremities: +2 pulses bilaterally radialis/ dorsalis pedis, no cyanosis, minimal pitting edema bilateral lower extremity Neuro: Awake alert oriented only to self Psych: Normal mood and affect G/U: Positive Brice Skin: no rashes, warm and dry Lymphatic: no cervical or axillary lymphadenopathy Results & Data Results & Data Vital Signs (Past 12 Hours) Vital Signs Temp Pulse Pulse Resp BP BP Pulse Ox 07/23/24 08:06 36.8 C 07/23/24 08:04 145/61 H 07/23/24 07:57 77 19 97 07/23/24 07:33 77 17 99 07/23/24 07:15 78 15 100 07/23/24 06:01 119/60 07/23/24 05:48 78 22 100 07/23/24 05:09 80 21 91 07/23/24 04:00 36.4 C L 83 24 144/86 H 100 07/23/24 03:04 108/69 07/23/24 02:39 85 21 100 07/23/24 01:02 120/57 L 07/23/24 00:00 125/57 L 07/23/24 00:00 82 17 100 07/23/24 00:00 81 07/22/24 23:00 110/50 L 07/22/24 22:57 91 H 19 100 07/22/24 22:15 88 21 100 07/22/24 22:01 120/51 L 07/22/24 21:42 36.4 C L 91 H 22 102/44 L 99 O2 Del Method 07/23/24 08:06 07/23/24 08:04 07/23/24 07:57 Room Air 07/23/24 07:33 07/23/24 07:15 07/23/24 06:01 07/23/24 05:48 07/23/24 05:09 07/23/24 04:00 07/23/24 03:04 07/23/24 02:39 07/23/24 01:02 07/23/24 00:00 07/23/24 00:00 07/23/24 00:00 07/22/24 23:00 07/22/24 22:57 07/22/24 22:15 07/22/24 22:01 07/22/24 21:42 Room Air Laboratory Results 07/23/24 03:55 07/23/24 07:42 Coding Level of Care Code 24855 CRITICAL CARE 1ST 30-74M Diagnoses Metabolic encephalopathy G93.41 DKA (diabetic ketoacidosis) E11.10 History of subdural hematoma Z86.79 Type 1 diabetes mellitus with obesity E10.69; E66.9 Recurrent falls R29.6
[2024-07-23] MEDS ORDERED: PHARMACY GLYCEMIC MGMT CONSULT PRN (10:31)
[2024-07-23 13:33] LABS: BUN Creatinine Ratio 20.1 (10-20); Calcium 7.2 mg/dl (8.6-10.3); Magnesium 1.8 mg/dl (1.7-2.4); Phosphorus 1.5 mg/dl (2.5-4.9); Potassium 4.1 mmol/L (3.5-5.1)
--- NOTE | 2024-07-23 14:02 | Pharmacy Report ---
Pharmacy Glycemic Short Note 2 - Date of Service July 23, 2024 - Glycemic Short BSG Results (Last 24 hours): 07/22/24 07/22/24 07/22/24 14:13 14:41 16:49 Glucose 795 H* POC Glucose > 600 H* > 600 H* 07/22/24 07/22/24 07/22/24 18:00 18:20 19:19 Glucose 760 H* POC Glucose > 600 H* > 600 H* 07/22/24 07/22/24 07/22/24 19:39 20:03 21:00 Glucose 700 H* POC Glucose > 600 H* > 600 H* 07/22/24 07/22/24 07/22/24 21:16 21:53 22:31 Glucose 606 H* POC Glucose 560 H* 525 H* 07/22/24 07/23/24 07/23/24 22:59 00:06 00:14 Glucose 412 H* POC Glucose 509 H* 464 H* 07/23/24 07/23/24 07/23/24 01:01 01:57 02:59 Glucose POC Glucose 378 H* 334 H* 290 H 07/23/24 07/23/24 07/23/24 03:55 03:58 04:16 Glucose 187 H POC Glucose 191 H 188 H 07/23/24 07/23/24 07/23/24 04:34 04:56 05:18 Glucose POC Glucose 180 H 204 H 175 H 07/23/24 07/23/24 07/23/24 05:42 06:01 06:29 Glucose POC Glucose 200 H 194 H 247 H 07/23/24 07/23/24 07/23/24 06:47 07:02 07:29 Glucose POC Glucose 234 H 247 H 304 H* 07/23/24 07/23/24 07/23/24 07:42 08:36 09:34 Glucose 319 H* POC Glucose 305 H* 310 H* 07/23/24 07/23/24 07/23/24 11:26 11:41 11:43 Glucose 147 H POC Glucose 159 H 155 H 07/23/24 07/23/24 07/23/24 11:58 12:13 12:29 Glucose POC Glucose 149 H 172 H 159 H 07/23/24 07/23/24 07/23/24 12:45 13:16 13:34 Glucose POC Glucose 155 H 212 H 199 H OUTPATIENT ANTIDIABETIC REGIMEN: * Lantus 17 units BID, Humalog 15 units w/ breakfast, 12 units w/Lunch, 7 units w/ supper + sliding scale. * A1c 8.6% 07/22/24 ASSESSMENT: * Patient with history of type I diabetes admitted with DKA and started on an insulin infusion which is currently running @ 2.4 units/hr after being held for BSG below initial goal range of 250-350 mg/dL. * On most recent labs, carbon dioxide 22, anion gap 7. Will begin to transition from insulin drip. Patient currently has D51/2NS + 40 kcl @ 150 ml/hr which will continue until insulin infusion is discontinued. * Reviewed recent endocrinology visits, BSGs have been running in the 200s and basal was recently increased to 17 units BID. Will give 30 units of basal x 1. Insulin infusion to be d/c if rate < 2.5 units/hr and two BSGs within goal OR held per protocol and two hours have elapsed since lantus was given. Otherwise will plan to discontinue at 6 hours if these criteria not previous met, if appropriate. * Will begin Novolog ~ stress of 2 outpatient dose/between weight based 2/3. PLAN FOR INPATIENT GLYCEMIC CONTROL: * Hold outpatient oral diabetes medications * Basal insulin * Lantus 30 units x 1 now * Bolus insulin ---> once transitioned off of insulin infusion begin * NovoLog per scale ACHS or Q6hrs while NPO * Goal Range: Low 120 mg/dL - High 160 mg/dL * Correction Factor: 20 mg/dL/unit * Nutritional / Prandial insulin per carb ratio of 1 unit per 7 grams CHO consumed
[2024-07-23] MEDS: LANTUS PER UNIT CHARGE SC SCH (14:10)
[2024-07-23] MEDS ORDERED: SODIUM PHOSPHATE 3 MMOL/1 ML INFUSION IV STA (14:39)
[2024-07-23] MEDS: MAGNESIUM SULFATE / D5W 1 GM/100 ML BAG IV SCH (15:50)
[2024-07-23] MEDS: SODIUM PHOSPHATE 21 MMOL in DEXTROSE 5% 500 ML IV ONE (15:56)
[2024-07-23] MEDS: PLASMA-LYTE A 1,000 ML IV SCH (15:57)
[2024-07-23] MEDS ORDERED: INSULIN INFUSION~PENDING ORDER SCH (16:00)
[2024-07-23 16:24] LABS: BUN Creatinine Ratio 19.1 (10-20); Calcium 7.5 mg/dl (8.6-10.3); Creatinine Clr Calc Pharmacy 51.2 ml/min; Magnesium 1.8 mg/dl (1.7-2.4); Phosphorus 1.8 mg/dl (2.5-4.9); Potassium 4.2 mmol/L (3.5-5.1)
[2024-07-23] MEDS: INSULIN ASPART PER UNIT CHARGE SC SCH (18:10)
--- NOTE | 2024-07-23 18:13 | Hospitalist Progress Note ---
Date of Service July 23, 2024 Assessment & Plan (1) Diabetic ketoacidosis: Plan: h/o noncompliance with insulin regimen recent stress of illness/injury (subdural hematoma) likely also to blame no infectious cause found - BioFire resp panel negative, no pneumonia on cxr, u/a not suspicious for UTI, etc. appreciate pharmacy glycemic team & their assistance anion gap is closed, BSGs have improved, acidosis improved/resolved insulin drip weaned off long-acting insulin in the form of lantus given this afternoon novolog for meal coverage/correction hemoglobin a1c 8.6% - has not had a hemoglobin a1c <7% dating back to at least 2018 (2) Diabetes mellitus type 1, uncontrolled: Plan: see #1 above (3) History of subdural hematoma: Plan: right-sided 07/13/24 - 2nd to fall transferred to [facility] [place] was observed for 24 hours no surgical intervention needed CT head 07/22 negative for residual SDH Eliquis remains on hold was taking keppra for seizure prophylaxis as recommended by [facility] - now off such (4) Metabolic encephalopathy: Plan: 2nd to DKA mental status improving relative to his admission mental status continue to provide supportive care if mental status remains altered then MRI brain (5) Paroxysmal atrial fibrillation: Plan: in NSR cont meto succ daily holding Eliquis due to #3 (6) Recurrent falls: Plan: suspect diabetic neuropathy contributes heavily to fall risk legal blindness also contributes to fall risk B12 level 2023 wnl will need PT/OT of note -- inpatient rehab advised when patient was at [facility] but patient refused (7) Hypothyroidism: Plan: TSH wnl cont synthroid (8) Hypertension: Plan: cont meto succ (9) Dyslipidemia: Plan: cont statin (10) Iron deficiency anemia: Plan: ferritin 35 earlier this month transferrin sat <10% in fall 2023 cont ferrous sulfate (11) Legally blind: Plan: noted Plan DVT proph - heparin SC BID replace low mag replace low phos BMP in am Admission and Anticipated Discharge Date Admission Date: July 22, 2024 Subjective events of overnight reviewed insulin drip weaned off this afternoon has remained confused during my visit he knew he was in [facility]" he c/o headache over the posterior occipital region states he had the headache at home and also while in [facility] no frontal headache no neck pain Review of Systems Review of Systems: cv - no chest pain pulm - no dyspnea GI - no abd pain or N/V Physical Exam Physical Exam: gen - laying flat in bed, falling asleep at times, confused eyes - PERRL neck - no tenderness to palpation over c-spine head - no signs of trauma mouth - MMM; no thrush heart - RRR, s1 s2 lungs - CTA b/l abd - soft NT ND BS+ ext - no edema, pulses 2+ b/l neuro - strength 5/5 b/l handgrip; moves all toes symmetrically Results & Data Results & Data Vital Signs (Past 12 Hours) Vital Signs Temp Pulse Pulse Resp BP BP Pulse Ox 07/23/24 18:00 66 20 118/65 100 07/23/24 17:06 64 13 95 07/23/24 17:00 64 20 130/58 L 100 07/23/24 16:20 36.8 C 07/23/24 16:06 66 100 07/23/24 16:00 67 20 117/59 L 98 07/23/24 15:00 67 27 H 98 07/23/24 15:00 74 20 124/56 L 96 07/23/24 14:09 66 20 97 07/23/24 14:01 117/55 L 07/23/24 14:01 117/55 L 07/23/24 13:57 67 15 99 07/23/24 13:03 67 20 99 07/23/24 13:01 121/52 L 07/23/24 13:01 121/52 L 07/23/24 12:51 66 21 100 07/23/24 12:00 62 19 98 07/23/24 11:44 36.7 C 07/23/24 11:07 119/57 L 07/23/24 11:06 70 8 L 100 07/23/24 11:00 103/70 07/23/24 10:54 69 22 99 07/23/24 10:00 117/56 L 07/23/24 10:00 117/56 L 07/23/24 10:00 73 16 100 07/23/24 09:12 77 17 99 07/23/24 08:30 79 19 99 07/23/24 08:06 36.8 C 07/23/24 08:04 145/61 H 07/23/24 08:04 145/61 H 07/23/24 07:57 77 19 97 07/23/24 07:33 77 17 99 07/23/24 07:15 78 15 100 O2 Del Method 07/23/24 18:00 Room Air 07/23/24 17:06 07/23/24 17:00 Room Air 07/23/24 16:20 07/23/24 16:06 07/23/24 16:00 Room Air 07/23/24 15:00 07/23/24 15:00 Room Air 07/23/24 14:09 07/23/24 14:01 07/23/24 14:01 07/23/24 13:57 Room Air 07/23/24 13:03 07/23/24 13:01 07/23/24 13:01 07/23/24 12:51 07/23/24 12:00 07/23/24 11:44 07/23/24 11:07 07/23/24 11:06 07/23/24 11:00 07/23/24 10:54 07/23/24 10:00 07/23/24 10:00 07/23/24 10:00 07/23/24 09:12 07/23/24 08:30 07/23/24 08:06 07/23/24 08:04 07/23/24 08:04 07/23/24 07:57 Room Air 07/23/24 07:33 07/23/24 07:15 Laboratory Results Laboratory Results - last 24 hr 07/22/24 07/22/24 07/22/24 14:41 18:20 19:19 WBC RBC Hgb 10.6 L Hct 34.9 L MCV MCH MCHC RDW Std Deviation RDW Coeff of Roland Plt Count MPV Immature Gran % (Auto) Neut % (Auto) Lymph % (Auto) [place] % (Auto) Eos % (Auto) Baso % (Auto) Neut # (Auto) Lymph # (Auto) [place] # (Auto) Eos # (Auto) Baso # (Auto) Immature Gran # (Auto) VBG pH Sodium 127 L Potassium 5.5 H Chloride 95 L Carbon Dioxide 7 L* Anion Gap 25 H BUN 29 H Creatinine 1.62 H Est Cr Clr Drug Dosing 41.2 eGFR 43.72 BUN/Creatinine Ratio 17.9 Glucose 760 H* POC Glucose > 600 H* Estimat Average Glucose 200 Hemoglobin A1c 8.6 H Lactate 3.3 H* Calcium 7.7 L Phosphorus Magnesium TSH 0.479 Nasal Screen MRSA (PCR) 07/22/24 07/22/24 07/22/24 19:39 20:03 20:09 WBC RBC Hgb Hct MCV MCH MCHC RDW Std Deviation RDW Coeff of Roland Plt Count MPV Immature Gran % (Auto) Neut % (Auto) Lymph % (Auto) [place] % (Auto) Eos % (Auto) Baso % (Auto) Neut # (Auto) Lymph # (Auto) [place] # (Auto) Eos # (Auto) Baso # (Auto) Immature Gran # (Auto) VBG pH 7.06 L Sodium 130 L Potassium 4.7 Chloride 96 L Carbon Dioxide 7 L* Anion Gap 27 H BUN 30 H Creatinine 1.69 H Est Cr Clr Drug Dosing 40.2 eGFR 41.56 BUN/Creatinine Ratio 17.8 Glucose 700 H* POC Glucose > 600 H* Estimat Average Glucose Hemoglobin A1c Lactate 3.2 H* Calcium 7.8 L Phosphorus 6.1 H Magnesium 2.1 TSH Nasal Screen MRSA (PCR) 07/22/24 07/22/24 07/22/24 21:00 21:16 21:53 WBC RBC Hgb Hct MCV MCH MCHC RDW Std Deviation RDW Coeff of Roland Plt Count MPV Immature Gran % (Auto) Neut % (Auto) Lymph % (Auto) [place] % (Auto) Eos % (Auto) Baso % (Auto) Neut # (Auto) Lymph # (Auto) [place] # (Auto) Eos # (Auto) Baso # (Auto) Immature Gran # (Auto) VBG pH Sodium Potassium Chloride Carbon Dioxide Anion Gap BUN Creatinine Est Cr Clr Drug Dosing eGFR BUN/Creatinine Ratio Glucose 606 H* POC Glucose > 600 H* 560 H* Estimat Average Glucose Hemoglobin A1c Lactate Calcium Phosphorus Magnesium TSH Nasal Screen MRSA (PCR) 07/22/24 07/22/24 07/22/24 22:31 22:59 Unknown WBC RBC Hgb Hct MCV MCH MCHC RDW Std Deviation RDW Coeff of Roland Plt Count MPV Immature Gran % (Auto) Neut % (Auto) Lymph % (Auto) [place] % (Auto) Eos % (Auto) Baso % (Auto) Neut # (Auto) Lymph # (Auto) [place] # (Auto) Eos # (Auto) Baso # (Auto) Immature Gran # (Auto) VBG pH Sodium Potassium Chloride Carbon Dioxide Anion Gap BUN Creatinine Est Cr Clr Drug Dosing eGFR BUN/Creatinine Ratio Glucose POC Glucose 525 H* 509 H* Estimat Average Glucose Hemoglobin A1c Lactate Calcium Phosphorus Magnesium TSH Nasal Screen MRSA (PCR) Negative 07/23/24 07/23/24 07/23/24 00:06 00:14 01:01 WBC RBC Hgb Hct MCV MCH MCHC RDW Std Deviation RDW Coeff of Roland Plt Count MPV Immature Gran % (Auto) Neut % (Auto) Lymph % (Auto) [place] % (Auto) Eos % (Auto) Baso % (Auto) Neut # (Auto) Lymph # (Auto) [place] # (Auto) Eos # (Auto) Baso # (Auto) Immature Gran # (Auto) VBG pH 7.27 L Sodium 132 L Potassium 3.9 Chloride 101 Carbon Dioxide 15 L Anion Gap 16 H BUN 29 H Creatinine 1.68 H Est Cr Clr Drug Dosing 40.9 eGFR 41.85 BUN/Creatinine Ratio 17.3 Glucose 412 H* POC Glucose 464 H* 378 H* Estimat Average Glucose Hemoglobin A1c Lactate Calcium 7.5 L Phosphorus 2.9 D Magnesium 1.9 TSH Nasal Screen MRSA (PCR) 07/23/24 07/23/24 07/23/24 01:57 02:59 03:55 WBC 10.46 RBC 3.46 L Hgb 9.9 L Hct 29.9 L MCV 86.4 D MCH 28.6 MCHC 33.1 D RDW Std Deviation 42.5 RDW Coeff of Roland 13.5 Plt Count 203 MPV 10.0 Immature Gran % (Auto) 0.6 Neut % (Auto) 77.6 Lymph % (Auto) 13.8 [place] % (Auto) 7.3 Eos % (Auto) 0.6 Baso % (Auto) 0.1 Neut # (Auto) 8.13 H Lymph # (Auto) 1.44 [place] # (Auto) 0.76 H Eos # (Auto) 0.06 Baso # (Auto) 0.01 Immature Gran # (Auto) 0.06 VBG pH Sodium 133 L Potassium 3.3 L Chloride 104 Carbon Dioxide 19 L Anion Gap 10 BUN 28 H Creatinine 1.53 H Est Cr Clr Drug Dosing 44.9 eGFR 46.82 BUN/Creatinine Ratio 18.3 Glucose 187 H POC Glucose 334 H* 290 H Estimat Average Glucose Hemoglobin A1c Lactate Calcium 7.6 L Phosphorus 2.3 L Magnesium 2.0 TSH Nasal Screen MRSA (PCR) 07/23/24 07/23/24 07/23/24 03:58 04:16 04:34 WBC RBC Hgb Hct MCV MCH MCHC RDW Std Deviation RDW Coeff of Roland Plt Count MPV Immature Gran % (Auto) Neut % (Auto) Lymph % (Auto) [place] % (Auto) Eos % (Auto) Baso % (Auto) Neut # (Auto) Lymph # (Auto) [place] # (Auto) Eos # (Auto) Baso # (Auto) Immature Gran # (Auto) VBG pH Sodium Potassium Chloride Carbon Dioxide Anion Gap BUN Creatinine Est Cr Clr Drug Dosing eGFR BUN/Creatinine Ratio Glucose POC Glucose 191 H 188 H 180 H Estimat Average Glucose Hemoglobin A1c Lactate Calcium Phosphorus Magnesium TSH Nasal Screen MRSA (PCR) 07/23/24 07/23/24 07/23/24 04:56 05:18 05:42 WBC RBC Hgb Hct MCV MCH MCHC RDW Std Deviation RDW Coeff of Roland Plt Count MPV Immature Gran % (Auto) Neut % (Auto) Lymph % (Auto) [place] % (Auto) Eos % (Auto) Baso % (Auto) Neut # (Auto) Lymph # (Auto) [place] # (Auto) Eos # (Auto) Baso # (Auto) Immature Gran # (Auto) VBG pH Sodium Potassium Chloride Carbon Dioxide Anion Gap BUN Creatinine Est Cr Clr Drug Dosing eGFR BUN/Creatinine Ratio Glucose POC Glucose 204 H 175 H 200 H Estimat Average Glucose Hemoglobin A1c Lactate Calcium Phosphorus Magnesium TSH Nasal Screen MRSA (PCR) 07/23/24 07/23/24 07/23/24 06:01 06:29 06:47 WBC RBC Hgb Hct MCV MCH MCHC RDW Std Deviation RDW Coeff of Roland Plt Count MPV Immature Gran % (Auto) Neut % (Auto) Lymph % (Auto) [place] % (Auto) Eos % (Auto) Baso % (Auto) Neut # (Auto) Lymph # (Auto) [place] # (Auto) Eos # (Auto) Baso # (Auto) Immature Gran # (Auto) VBG pH Sodium Potassium Chloride Carbon Dioxide Anion Gap BUN Creatinine Est Cr Clr Drug Dosing eGFR BUN/Creatinine Ratio Glucose POC Glucose 194 H 247 H 234 H Estimat Average Glucose Hemoglobin A1c Lactate Calcium Phosphorus Magnesium TSH Nasal Screen MRSA (PCR) 07/23/24 07/23/24 07/23/24 07:02 07:29 07:42 WBC RBC Hgb Hct MCV MCH MCHC RDW Std Deviation RDW Coeff of Roland Plt Count MPV Immature Gran % (Auto) Neut % (Auto) Lymph % (Auto) [place] % (Auto) Eos % (Auto) Baso % (Auto) Neut # (Auto) Lymph # (Auto) [place] # (Auto) Eos # (Auto) Baso # (Auto) Immature Gran # (Auto) VBG pH Sodium 133 L Potassium 4.4 D Chloride 102 Carbon Dioxide 18 L Anion Gap 13 H BUN 28 H Creatinine 1.40 Est Cr Clr Drug Dosing 49.7 eGFR 52.09 BUN/Creatinine Ratio 20.0 Glucose 319 H* POC Glucose 247 H 304 H* Estimat Average Glucose Hemoglobin A1c Lactate Calcium 7.3 L Phosphorus 2.7 Magnesium 1.9 TSH Nasal Screen MRSA (PCR) 07/23/24 07/23/24 07/23/24 08:36 09:34 11:26 WBC RBC Hgb Hct MCV MCH MCHC RDW Std Deviation RDW Coeff of Roland Plt Count MPV Immature Gran % (Auto) Neut % (Auto) Lymph % (Auto) [place] % (Auto) Eos % (Auto) Baso % (Auto) Neut # (Auto) Lymph # (Auto) [place] # (Auto) Eos # (Auto) Baso # (Auto) Immature Gran # (Auto) VBG pH Sodium Potassium Chloride Carbon Dioxide Anion Gap BUN Creatinine Est Cr Clr Drug Dosing eGFR BUN/Creatinine Ratio Glucose POC Glucose 305 H* 310 H* 159 H Estimat Average Glucose Hemoglobin A1c Lactate Calcium Phosphorus Magnesium TSH Nasal Screen MRSA (PCR) 07/23/24 07/23/24 07/23/24 11:41 11:43 11:58 WBC RBC Hgb Hct MCV MCH MCHC RDW Std Deviation RDW Coeff of Roland Plt Count MPV Immature Gran % (Auto) Neut % (Auto) Lymph % (Auto) [place] % (Auto) Eos % (Auto) Baso % (Auto) Neut # (Auto) Lymph # (Auto) [place] # (Auto) Eos # (Auto) Baso # (Auto) Immature Gran # (Auto) VBG pH Sodium 134 L Potassium 4.1 Chloride 105 Carbon Dioxide 22 Anion Gap 7 BUN 27 H Creatinine 1.34 Est Cr Clr Drug Dosing 52.0 eGFR 54.90 BUN/Creatinine Ratio 20.1 H Glucose 147 H POC Glucose 155 H 149 H Estimat Average Glucose Hemoglobin A1c Lactate Calcium 7.2 L Phosphorus 1.5 L* D Magnesium 1.8 TSH Nasal Screen MRSA (PCR) 07/23/24 07/23/24 07/23/24 12:13 12:29 12:45 WBC RBC Hgb Hct MCV MCH MCHC RDW Std Deviation RDW Coeff of Roland Plt Count MPV Immature Gran % (Auto) Neut % (Auto) Lymph % (Auto) [place] % (Auto) Eos % (Auto) Baso % (Auto) Neut # (Auto) Lymph # (Auto) [place] # (Auto) Eos # (Auto) Baso # (Auto) Immature Gran # (Auto) VBG pH Sodium Potassium Chloride Carbon Dioxide Anion Gap BUN Creatinine Est Cr Clr Drug Dosing eGFR BUN/Creatinine Ratio Glucose POC Glucose 172 H 159 H 155 H Estimat Average Glucose Hemoglobin A1c Lactate Calcium Phosphorus Magnesium TSH Nasal Screen MRSA (PCR) 07/23/24 07/23/24 07/23/24 13:16 13:34 14:38 WBC RBC Hgb Hct MCV MCH MCHC RDW Std Deviation RDW Coeff of Roland Plt Count MPV Immature Gran % (Auto) Neut % (Auto) Lymph % (Auto) [place] % (Auto) Eos % (Auto) Baso % (Auto) Neut # (Auto) Lymph # (Auto) [place] # (Auto) Eos # (Auto) Baso # (Auto) Immature Gran # (Auto) VBG pH Sodium Potassium Chloride Carbon Dioxide Anion Gap BUN Creatinine Est Cr Clr Drug Dosing eGFR BUN/Creatinine Ratio Glucose POC Glucose 212 H 199 H 177 H Estimat Average Glucose Hemoglobin A1c Lactate Calcium Phosphorus Magnesium TSH Nasal Screen MRSA (PCR) 07/23/24 07/23/24 15:51 15:53 WBC RBC Hgb Hct MCV MCH MCHC RDW Std Deviation RDW Coeff of Roland Plt Count MPV Immature Gran % (Auto) Neut % (Auto) Lymph % (Auto) [place] % (Auto) Eos % (Auto) Baso % (Auto) Neut # (Auto) Lymph # (Auto) [place] # (Auto) Eos # (Auto) Baso # (Auto) Immature Gran # (Auto) VBG pH Sodium 133 L Potassium 4.2 Chloride 106 Carbon Dioxide 22 Anion Gap 5 BUN 26 H Creatinine 1.36 Est Cr Clr Drug Dosing 51.2 eGFR 53.93 BUN/Creatinine Ratio 19.1 Glucose 164 H POC Glucose 158 H Estimat Average Glucose Hemoglobin A1c Lactate Calcium 7.5 L Phosphorus 1.8 L Magnesium 1.8 TSH Nasal Screen MRSA (PCR) PG Care Time/CCT Total # of Minutes Spent Total Time Spent with Patient: Total time spent is greater than 50% in coordination of care (as documented) at patient's floor/unit and/or counseling patient: Coding Level of Care Code 05941 SUB INP/OBS CARE 2/35MIN Diagnoses Diabetic ketoacidosis E11.10 Diabetes mellitus type 1, uncontrolled E10.65 History of subdural hematoma Z86.79 Metabolic encephalopathy G93.41 Paroxysmal atrial fibrillation I48.0 Recurrent falls R29.6 Acquired hypothyroidism E03.9 Hypothyroidism type: acquired Essential hypertension I10 Hypertension type: essential hypertension Dyslipidemia E78.5 Iron deficiency anemia D50.9 Legally blind H54.8 (7) Hypothyroidism Hypothyroidism type: acquired Qualified Code(s): E03.9 - Hypothyroidism, unspecified (8) Hypertension Hypertension type: essential hypertension Qualified Code(s): I10 - Essential (primary) hypertension
[2024-07-24 00:06] LABS: BUN Creatinine Ratio 17.2 (10-20); Calcium 7.2 mg/dl (8.6-10.3); Magnesium 2.3 mg/dl (1.7-2.4); Phosphorus 3.4 mg/dl (2.5-4.9); Potassium 3.8 mmol/L (3.5-5.1)
[2024-07-24] MEDS: INSULIN ASPART PER UNIT CHARGE SC ONE (02:00)
[2024-07-24] MEDS: DEXTROSE 50% 50 ML SYRINGE IV PRN (04:37)
[2024-07-24 08:56] LABS: Hematocrit (blood only) 34.9 % (42.0-52.0); Hemoglobin 11.8 g/dl (14.0-18.0); Mean Corpuscular Hemoglobin 28.9 pg (25.0-34.0); Mean Corpuscular Hgb Conc 33.8 g/dL (32.0-36.0); Mean Corpuscular Volume 85.3 fL (80.0-100.0); Mean Platelet Volume 10.2 fL (9.4-12.4); Platelet Count 208 K/uL (130-400); RDW Coefficient of Variation 14.2 % (11.5-14.5); RDW Standard Deviation 43.8 fL (36.4-46.3); Red Blood Count 4.09 M/uL (4.70-6.10); White Blood Count 8.77 K/ul (4.8-10.8)
[2024-07-24 09:15] LABS: Calcium 7.4 mg/dl (8.6-10.3); Creatinine Clr Calc Pharmacy 74.1 ml/min; Potassium 4.1 mmol/L (3.5-5.1)
--- NOTE | 2024-07-24 13:51 | Pharmacy Report ---
Pharmacy Glycemic Short Note 2 - Date of Service July 24, 2024 - Glycemic Short BSG Results (Last 24 hours): 07/23/24 07/23/24 07/23/24 11:41 13:34 14:38 Glucose 147 H POC Glucose 199 H 177 H 07/23/24 07/23/24 07/23/24 15:51 15:53 20:38 Glucose 164 H POC Glucose 158 H 168 H 07/23/24 07/24/24 07/24/24 22:53 04:29 04:33 Glucose 118 H POC Glucose 46 L* 35 L* 07/24/24 07/24/24 07/24/24 04:53 07:29 08:13 Glucose 72 POC Glucose 118 H 79 07/24/24 11:50 Glucose POC Glucose 95 OUTPATIENT ANTIDIABETIC REGIMEN: * Lantus 17 units BID, Humalog 15 units w/ breakfast, 12 units w/Lunch, 7 units w/ supper + sliding scale. * A1c 8.6% 07/22/24 ASSESSMENT: 07/24 * Patient transitioned off of insulin at 1600 yesterday. Dextrose removed from fluid and received 1 unit of novolog for BSG > 168 mg/dL at bedtime. 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 * BSG 79 mg/dL on 0730 check. Will reduce basal dose ~35% to 20 units. This will be given with dinner in an attempt to move to evening dosing at recommendation of fresh foods cake decorator, as patient remembers this dose * Novolog parameters loosened and goal range adjusted to 140-180 mg/dL for now- monitor. 07/23 * Patient with history of type I diabetes admitted with DKA and started on an insulin infusion which is currently running @ 2.4 units/hr after being held for BSG below initial goal range of 250-350 mg/dL. * On most recent labs, carbon dioxide 22, anion gap 7. Will begin to transition from insulin drip. Patient currently has D51/2NS + 40 kcl @ 150 ml/hr which will continue until insulin infusion is discontinued. * Reviewed recent endocrinology visits, BSGs have been running in the 200s and basal was recently increased to 17 units BID. Will give 30 units of basal x 1. Insulin infusion to be d/c if rate < 2.5 units/hr and two BSGs within goal OR held per protocol and two hours have elapsed since lantus was given. Otherwise will plan to discontinue at 6 hours if these criteria not previous met, if appropriate. * Will begin Novolog ~ stress of 2 outpatient dose/between weight based 2/3. PLAN FOR INPATIENT GLYCEMIC CONTROL: * Hold outpatient oral diabetes medications * Basal insulin * Lantus 20 units x 1 @ 1630 * Bolus insulin ---> once transitioned off of insulin infusion begin * NovoLog per scale ACHS or Q6hrs while NPO * Goal Range: Low 140 mg/dL - High 180 mg/dL * Correction Factor: 30 mg/dL/unit * Nutritional / Prandial insulin per carb ratio of 1 unit per 10 grams CHO consumed
[2024-07-24] MEDS: LANTUS PER UNIT CHARGE SC SCH (17:22)
--- NOTE | 2024-07-24 19:06 | Hospitalist Progress Note ---
Date of Service July 24, 2024 Assessment & Plan (1) Diabetic ketoacidosis: Plan: h/o noncompliance with insulin regimen recent stress of illness/injury (subdural hematoma) likely also to blame no infectious cause found - BioFire resp panel negative, no pneumonia on cxr, u/a not suspicious for UTI, etc. appreciate pharmacy glycemic team & their assistance DKA resolved insulin drip weaned off 07/23/24 long-acting insulin in the form of lantus resumed 07/23/24 novolog for meal coverage/correction also resumed at that time hemoglobin a1c 8.6% - has not had a hemoglobin a1c <7% dating back to at least 2017 had hypoglycemia overnight - pharmacy to make insulin adjustments (2) Diabetes mellitus type 1, uncontrolled: Plan: see #1 above (3) History of subdural hematoma: Plan: right-sided 07/13/24 - to fall [place] [facility] [place] observed for 24 hours no surgical intervention needed CT head 07/22 negative for residual SDH Eliquis remains on hold - can potentially resume next 48 hours was taking keppra for seizure prophylaxis as recommended by [facility] - now off such (4) Metabolic encephalopathy: Plan: 2nd to DKA mental status near baseline today defer on MRI brain for now recent SDH also likely contributed to acute met encephalopathy suspect he had concussion in the setting of his brain injury (5) Paroxysmal atrial fibrillation: Plan: in NSR cont meto succ daily holding Eliquis due to #3 can likely resume sometime this weekend (6) Recurrent falls: Plan: suspect diabetic neuropathy contributes heavily to fall risk legal blindness also contributes to fall risk B12 level 2023 wnl PT/OT tez completed - rehab recommended of note -- inpatient rehab advised when patient was at [facility] but patient refused spoke with pt's by phone this evening - she is agreeable to rehab placement for her (7) Hypothyroidism: Plan: TSH wnl cont synthroid (8) Hypertension: Plan: cont meto succ resume losartan (9) Dyslipidemia: Plan: cont statin (10) Iron deficiency anemia: Plan: ferritin 35 earlier this month transferrin sat <10% in fall 2023 cont ferrous sulfate stool heme negative today (11) Legally blind: Plan: noted Plan DVT proph - heparin SC BID stop IV fluids advance diet to regular/DM diet remove cherry when able updated by phone this evening 2/28 Admission and Anticipated Discharge Date Admission Date: July 22, 2024 Subjective much more awake/alert today sitting in chair during the visit states headache is resolved no pain in any other location staff report he is 2+ assist to get OOB to chair tele overnight wnl eating fair; tolerating diet (full liquids) Review of Systems Review of Systems: gen - no fevers or chills cv - no chest pain pulm - no dyspnea GI - no abd pain or N/V Physical Exam Physical Exam: gen - sitting in chair, NAD neck - no JVD head - no signs of trauma mouth - MMM; no thrush heart - RRR, s1 s2, no murmur lungs - CTA b/l abd - soft NT ND BS+ ext - no edema, pulses 2+ b/l Results & Data Results & Data Vital Signs (Past 12 Hours) Vital Signs Temp Pulse Pulse Resp BP Pulse Ox O2 Del Method 07/24/24 16:00 71 07/24/24 15:11 37.2 C 78 18 183/72 H 97 Room Air 07/24/24 08:00 83 07/24/24 08:00 Room Air 07/24/24 07:41 168/80 H 07/24/24 07:31 36.8 C 74 18 97 Room Air Laboratory Results Laboratory Results - last 24 hr 07/23/24 07/23/24 07/24/24 20:38 22:53 04:29 WBC RBC Hgb Hct MCV MCH MCHC RDW Std Deviation RDW Coeff of Roland Plt Count MPV Sodium 137 Potassium 3.8 Chloride 108 H Carbon Dioxide 24 Anion Gap 5 BUN 20 Creatinine 1.16 Est Cr Clr Drug Dosing 60.0 eGFR 65.28 BUN/Creatinine Ratio 17.2 Glucose 118 H POC Glucose 168 H 46 L* Calcium 7.2 L Phosphorus 3.4 D Magnesium 2.3 Stool Occult Bld Scrn 07/24/24 07/24/24 07/24/24 04:33 04:53 07:29 WBC RBC Hgb Hct MCV MCH MCHC RDW Std Deviation RDW Coeff of Roland Plt Count MPV Sodium Potassium Chloride Carbon Dioxide Anion Gap BUN Creatinine Est Cr Clr Drug Dosing eGFR BUN/Creatinine Ratio Glucose POC Glucose 35 L* 118 H 79 Calcium Phosphorus Magnesium Stool Occult Bld Scrn 07/24/24 07/24/24 07/24/24 08:13 11:50 13:22 WBC 8.77 RBC 4.09 L Hgb 11.8 L Hct 34.9 L MCV 85.3 MCH 28.9 MCHC 33.8 RDW Std Deviation 43.8 RDW Coeff of Roland 14.2 Plt Count 208 MPV 10.2 Sodium 140 Potassium 4.1 Chloride 111 H Carbon Dioxide 26 Anion Gap 3 BUN 15 Creatinine 0.94 Est Cr Clr Drug Dosing 74.1 eGFR 84.01 BUN/Creatinine Ratio 16.0 Glucose 72 POC Glucose 95 Calcium 7.4 L Phosphorus Magnesium Stool Occult Bld Scrn Negative 07/24/24 16:26 WBC RBC Hgb Hct MCV MCH MCHC RDW Std Deviation RDW Coeff of Roland Plt Count MPV Sodium Potassium Chloride Carbon Dioxide Anion Gap BUN Creatinine Est Cr Clr Drug Dosing eGFR BUN/Creatinine Ratio Glucose POC Glucose 167 H Calcium Phosphorus Magnesium Stool Occult Bld Scrn PG Care Time/CCT Total # of Minutes Spent Total Time Spent with Patient: Total time spent is greater than 50% in coordination of care (as documented) at patient's floor/unit and/or counseling patient: Coding Level of Care Code 76047 SUB INP/OBS CARE 2/35MIN Diagnoses Diabetic ketoacidosis E11.10 Diabetes mellitus type 1, uncontrolled E10.65 History of subdural hematoma Z86.79 Metabolic encephalopathy G93.41 Paroxysmal atrial fibrillation I48.0 Recurrent falls R29.6 Acquired hypothyroidism E03.9 Hypothyroidism type: acquired Essential hypertension I10 Hypertension type: essential hypertension Dyslipidemia E78.5 Iron deficiency anemia D50.9 Legally blind H54.8 (7) Hypothyroidism Hypothyroidism type: acquired Qualified Code(s): E03.9 - Hypothyroidism, unspecified (8) Hypertension Hypertension type: essential hypertension Qualified Code(s): I10 - Essential (primary) hypertension
[2024-07-24] MEDS: LOSARTAN POTASSIUM 25 MG TAB PO SCH (20:45)
--- NOTE | 2024-07-25 06:59 | Electrocardiogram Report ---
Test Reason : Blood Pressure : */* mmHG Vent. Rate : 95 BPM Atrial Rate : * BPM P-R Int : * ms QRS Dur : 108 ms QT Int : 430 ms P-R-T Axes : * 58 62 degrees QTcB Int : 540 ms Probable Sinus rhythm with 1st degree A-V block with occasional Premature ventricular complexes Nonspecific ST and T wave abnormality Prolonged QT Abnormal ECG When compared with ECG of 13-Jul-2024 20:01, ST now depressed in Anterior leads QT has lengthened Confirmed by Xavier Vasquez ([id number]) on 07/25/2024 6:59:30 AM Referred By: REFERRED SELF Confirmed By: Xavier Vasquez
--- NOTE | 2024-07-25 07:04 | Electrocardiogram Report ---
Test Reason : Blood Pressure : */* mmHG Vent. Rate : 68 BPM Atrial Rate : 68 BPM P-R Int : 178 ms QRS Dur : 96 ms QT Int : 460 ms P-R-T Axes : 83 52 90 degrees QTcB Int : 489 ms Sinus rhythm with frequent Premature ventricular complexes Nonspecific ST abnormality Prolonged QT Abnormal ECG When compared with ECG of 22-Jul-2024 20:04, QT has shortened Confirmed by Xavier Vasquez ([id number]) on 07/25/2024 7:04:44 AM Referred By: REFERRED SELF Confirmed By: Xavier Vasquez
--- NOTE | 2024-07-25 12:52 | Hospitalist Progress Note ---
Date of Service July 25, 2024 Assessment & Plan (1) Diabetic ketoacidosis: Plan: resolved h/o noncompliance with insulin regimen recent stress of illness/injury (subdural hematoma) likely also to blame no infectious cause found - BioFire resp panel negative, no pneumonia on cxr, u/a not suspicious for UTI, etc. appreciate pharmacy glycemic team & their assistance insulin drip weaned off 07/23/24 long-acting insulin in the form of lantus resumed 07/23/24 novolog for meal coverage/correction also resumed at that time hemoglobin a1c 8.6% - has not had a hemoglobin a1c <7% dating back to at least 2018 had hypoglycemia 2 nights ago - pharmacy made insulin adjustments - no lows since (2) Diabetes mellitus type 1, uncontrolled: Plan: see #1 above (3) History of subdural hematoma: Plan: right-sided 07/13/24 - to fall [place] [facility] observed for 24 hours no surgical intervention needed CT head 07/22 negative for residual SDH Eliquis remains on hold - can potentially resume next 48 hours fecal occult is negative was taking keppra for seizure prophylaxis as recommended by [facility] - [facility] d/c (4) Metabolic encephalopathy: Plan: 2nd to DKA resolved recent SDH also likely contributed to acute met encephalopathy suspect he had concussion in the setting of his head trauma/SDH (5) Paroxysmal atrial fibrillation: Plan: in NSR cont meto succ daily holding Eliquis due to #3 can likely resume sometime this weekend (6) Recurrent falls: Plan: suspect diabetic neuropathy contributes heavily to fall risk legal blindness also contributes to fall risk B12 level 2023 wnl PT/OT tez completed - rehab recommended of note -- inpatient rehab advised when patient was at [facility] but patient refused spoke with pt's - she is agreeable to rehab placement for her check set of orthostatics in the am tomorrow (7) Hypothyroidism: Plan: TSH wnl cont synthroid (8) Hypertension: Plan: cont meto succ resumed losartan BPs still high but check orthostatic BPs first before titrating (9) Dyslipidemia: Plan: cont statin (10) Iron deficiency anemia: Plan: ferritin 35 earlier this month transferrin sat <10% in fall 2023 cont ferrous sulfate stool heme negative here (11) Legally blind: Plan: noted contributes heavily to fall risk, etc Plan DVT proph - heparin SC BID remove jo ann updated by phone 07/24 can d/c tele tomorrow Admission and Anticipated Discharge Date Admission Date: July 22, 2024 Subjective no events overnight tele wnl eating well during the visit he denies any & all complaints he did not remember our prior conversation about getting inpatient rehab post- discharge Review of Systems Review of Systems: cv - no chest pain pulm - no dyspnea GI - no abd pain or N/V neuro - no headache Physical Exam Physical Exam: gen - laying in bed, NAD, looks well neck - no JVD head - no signs of trauma mouth - MMM; no thrush heart - RRR, s1 s2, no murmur lungs - CTA b/l abd - soft NT ND BS+ ext - no edema, pulses 2+ b/l neuro - strength 5/5 x 4 exts; no facial droop Results & Data Results & Data Vital Signs (Past 12 Hours) Vital Signs Temp Pulse Pulse Resp BP Pulse Ox O2 Del Method 07/25/24 11:45 36.7 C 75 20 163/77 H 98 Room Air 07/25/24 08:05 36.7 C 90 18 187/79 H 96 Room Air 07/25/24 08:00 Room Air 07/25/24 08:00 88 07/25/24 02:54 36.8 C 74 22 168/73 H 95 Room Air Laboratory Results Laboratory Results - last 24 hr 07/25/24 07/25/24 11:30 16:30 POC Glucose 260 H 167 H PG Care Time/CCT Total # of Minutes Spent Total Time Spent with Patient: Total time spent is greater than 50% in coordination of care (as documented) at patient's floor/unit and/or counseling patient: Coding Level of Care Code 75145 SUB INP/OBS CARE 2/35MIN Diagnoses Diabetic ketoacidosis E11.10 Diabetes mellitus type 1, uncontrolled E10.65 History of subdural hematoma Z86.79 Metabolic encephalopathy G93.41 Paroxysmal atrial fibrillation I48.0 Recurrent falls R29.6 Acquired hypothyroidism E03.9 Hypothyroidism type: acquired Essential hypertension I10 Hypertension type: essential hypertension Dyslipidemia E78.5 Iron deficiency anemia D50.9 Legally blind H54.8 (7) Hypothyroidism Hypothyroidism type: acquired Qualified Code(s): E03.9 - Hypothyroidism, unspecified (8) Hypertension Hypertension type: essential hypertension Qualified Code(s): I10 - Essential (primary) hypertension
[2024-07-26 08:42] LABS: Hematocrit (blood only) 37.8 % (42.0-52.0); Hemoglobin 12.1 g/dl (14.0-18.0)
[2024-07-26 08:54] LABS: BUN Creatinine Ratio 11.2 (10-20); Calcium 8.7 mg/dl (8.6-10.3); Creatinine Clr Calc Pharmacy 77.6 ml/min; Potassium 4.9 mmol/L (3.5-5.1)
[2024-07-26] MEDS: amLODIPine BESYLATE 5 MG TAB PO SCH (10:56)
--- NOTE | 2024-07-26 14:41 | Pharmacy Report ---
Pharmacy Glycemic Short Note 2 - Date of Service July 26, 2024 - Glycemic Short BSG Results (Last 24 hours): 07/25/24 07/25/24 07/26/24 16:30 20:28 07:27 Glucose POC Glucose 167 H 186 H 189 H 07/26/24 07/26/24 08:22 11:07 Glucose 232 H POC Glucose 244 H OUTPATIENT ANTIDIABETIC REGIMEN: * Lantus 17 units BID, Humalog 15 units w/ breakfast, 12 units w/Lunch, 7 units w/ supper + sliding scale. * A1c 8.6% 07/22/24 ASSESSMENT: 07/26 * Patient received total of 43 units of insulin yesterday, of which 20 units were basal insulin * Fasting BSG 189 mg/dL - will titrate basal ~10% today * Continue same CF/CR 07/24 * Patient transitioned off of insulin at 1600 yesterday. Dextrose removed from fluid and received 1 unit of novolog for BSG > 168 mg/dL at bedtime. 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 * BSG 79 mg/dL on 0730 check. Will reduce basal dose ~35% to 20 units. This will be given with dinner in an attempt to move to evening dosing at recommendation of early childhood educator aide, as patient remembers this dose * Novolog parameters loosened and goal range adjusted to 140-180 mg/dL for now- monitor. 07/23 * Patient with history of type I diabetes admitted with DKA and started on an insulin infusion which is currently running @ 2.4 units/hr after being held for BSG below initial goal range of 250-350 mg/dL. * On most recent labs, carbon dioxide 22, anion gap 7. Will begin to transition from insulin drip. Patient currently has D51/2NS + 40 kcl @ 150 ml/hr which wi ll continue until insulin infusion is discontinued. * Reviewed recent endocrinology visits, BSGs have been running in the 200s and basal was recently increased to 17 units BID. Will give 30 units of basal x 1. Insulin infusion to be d/c if rate < 2.5 units/hr and two BSGs within goal OR held per protocol and two hours have elapsed since lantus was given. Otherwise will plan to discontinue at 6 hours if these criteria not previous met, if appropriate. * Will begin Novolog ~ stress of 2 outpatient dose/between weight based 2/3. PLAN FOR INPATIENT GLYCEMIC CONTROL: * Hold outpatient oral diabetes medications * Basal insulin * Lantus 22 units once daily in evening * Bolus insulin * NovoLog per scale ACHS or Q6hrs while NPO * Goal Range: Low 140 mg/dL - High 180 mg/dL * Correction Factor: 30 mg/dL/unit * Nutritional / Prandial insulin per carb ratio of 1 unit per 10 grams CHO consumed
[2024-07-26] MEDS: LANTUS PER UNIT CHARGE SC SCH (17:08)
--- NOTE | 2024-07-26 17:32 | Hospitalist Progress Note ---
Date of Service July 26, 2024 Assessment & Plan (1) Diabetic ketoacidosis: Plan: resolved h/o noncompliance with insulin regimen recent stress of illness/injury (subdural hematoma) likely also to blame no infectious cause found - BioFire resp panel negative, no pneumonia on cxr, u/a not suspicious for UTI, etc. appreciate pharmacy glycemic team & their assistance insulin drip weaned off 07/23/24 basal-bolus SC regimen resumed at that time hemoglobin a1c 8.6% - has not had a hemoglobin a1c <7% dating back to at least 2017 had hypoglycemia several nights ago - pharmacy made insulin adjustments - no lows since BSG control overall acceptable (2) Diabetes mellitus type 1, uncontrolled: Plan: see #1 above (3) History of subdural hematoma: Plan: right-sided 07/13/24 - 2nd to fall transferred to [facility] [place] was observed for 24 hours no surgical intervention needed CT head 07/22 negative for residual SDH told me today he had had several falls at home on 07/22 before his admission for DKA Eliquis was been on hold since 07/13/24 fecal occult is negative was taking keppra for seizure prophylaxis as recommended by Melvi - now d/c had a lengthy discussion with the pt's about pros/cons & risks/benefits of resuming his Eliquis stroke risk per CHADs-VASC calculator is at least 5% or so HAS-BLED risk score is 4-5% as well no clear cut right answer about resuming Eliquis however, given he had had falls AFTER the recent SDH I plan to continue to hold Eliquis for now we can revisit this in a few days from now plans to talk with their daughters about this complex issue as well (4) Metabolic encephalopathy: Plan: 2nd to DKA resolved recent SDH also likely contributed to acute met encephalopathy suspect he had concussion in the setting of his head trauma/SDH (5) Paroxysmal atrial fibrillation: Plan: had been in NSR since admission then converted to rate-controlled a.fib/a.flutter this am cont meto succ daily holding Eliquis due to #3 keep on tele for now (6) Recurrent falls: Plan: suspect diabetic neuropathy contributes heavily to fall risk legal blindness also contributes to fall risk B12 level 2023 wnl PT/OT tez completed - rehab recommended of note -- inpatient rehab advised when patient was at [facility] but patient refused spoke with pt's - she is agreeable to rehab placement for her orthostatic BPs were negative today (7) Hypothyroidism: Plan: TSH wnl cont synthroid (8) Hypertension: Plan: uncontrolled cont meto succ cont losartan add low-dose amlodipine 2.5mg daily (9) Dyslipidemia: Plan: cont statin (10) Iron deficiency anemia: Plan: ferritin 35 earlier this month transferrin sat <10% in fall 2023 cont ferrous sulfate stool heme negative here (11) Legally blind: Plan: noted contributes heavily to fall risk, etc Plan DVT proph - heparin SC BID voiding fine after cherry removed updated by phone 07/24 and again today, 07/26/24 Admission and Anticipated Discharge Date Admission Date: July 22, 2024 Subjective tele had been NSR overnight, then flipped to rate controlled a.flutter/a.fib no symptoms during the visit he was resting comfortably in bed denied any complaints of headache, chest pain, dyspnea, abd pain eating well no hypoglycemia Physical Exam Physical Exam: gen - laying in bed, NAD neck - no JVD mouth - MMM; no thrush heart - irregular, s1 s2, no murmur lungs - CTA b/l abd - soft NT ND BS+ ext - no edema, pulses 2+ b/l Results & Data Results & Data Vital Signs (Past 12 Hours) Vital Signs Temp Pulse Pulse Resp BP Pulse Ox O2 Del Method 07/26/24 16:00 61 07/26/24 15:02 37.0 C 60 17 152/62 H 95 Room Air 07/26/24 11:04 36.6 C 75 18 137/71 94 Room Air 07/26/24 07:36 Room Air 07/26/24 07:33 71 07/26/24 07:24 36.6 C 73 18 179/81 H 96 Room Air Laboratory Results Laboratory Results - last 24 hr 07/25/24 07/26/24 07/26/24 20:28 07:27 08:22 Hgb 12.1 L Hct 37.8 L Sodium 134 L Potassium 4.9 Chloride 101 Carbon Dioxide 31 Anion Gap 2 L BUN 10 Creatinine 0.89 Est Cr Clr Drug Dosing 77.6 eGFR 88.81 BUN/Creatinine Ratio 11.2 Glucose 232 H POC Glucose 186 H 189 H Calcium 8.7 07/26/24 07/26/24 11:07 16:24 Hgb Hct Sodium Potassium Chloride Carbon Dioxide Anion Gap BUN Creatinine Est Cr Clr Drug Dosing eGFR BUN/Creatinine Ratio Glucose POC Glucose 244 H 185 H Calcium PG Care Time/CCT Total # of Minutes Spent Total Time Spent with Patient: Total time spent is greater than 50% in coordination of care (as documented) at patient's floor/unit and/or counseling patient: Coding Level of Care Code 70635 SUB INP/OBS CARE 2/35MIN Diagnoses Diabetic ketoacidosis E11.10 Diabetes mellitus type 1, uncontrolled E10.65 History of subdural hematoma Z86.79 Metabolic encephalopathy G93.41 Paroxysmal atrial fibrillation I48.0 Recurrent falls R29.6 Acquired hypothyroidism E03.9 Hypothyroidism type: acquired Essential hypertension I10 Hypertension type: essential hypertension Dyslipidemia E78.5 Iron deficiency anemia D50.9 Legally blind H54.8 (7) Hypothyroidism Hypothyroidism type: acquired Qualified Code(s): E03.9 - Hypothyroidism, unspecified (8) Hypertension Hypertension type: essential hypertension Qualified Code(s): I10 - Essential (primary) hypertension
--- NOTE | 2024-07-27 18:47 | Hospitalist Progress Note ---
Date of Service July 27, 2024 Assessment & Plan (1) Diabetic ketoacidosis: Plan: present on admission resolved h/o noncompliance with insulin regimen recent stress of illness/injury (subdural hematoma) likely also to blame no infectious cause found - BioFire resp panel negative, no pneumonia on cxr, u/a not suspicious for UTI, etc. appreciate pharmacy glycemic team & their assistance insulin drip weaned off 07/23/24 basal-bolus SC regimen resumed at that time hemoglobin a1c 8.6% - has not had a hemoglobin a1c <7% dating back to at least 2018 had hypoglycemia several nights ago - pharmacy made insulin adjustments - no lows since BSGs remain labile - defer insulin adjustments to pharmacy glycemic team (2) Diabetes mellitus type 1, uncontrolled: Plan: see #1 above (3) History of subdural hematoma: Plan: right-sided 07/13/24 - 2nd to fall [place] [facility] [place] observed for 24 hours no surgical intervention needed CT head 07/22 negative for residual SDH told me he had had several falls at home on 07/22 before his admission for DKA Eliquis was been on hold since 07/13/24 fecal occult is negative was taking keppra for seizure prophylaxis as recommended by Melvi - now d/c had a lengthy discussion with the pt's about pros/cons & risks/benefits of resuming his Eliquis on 07/26/24 by phone stroke risk per CHADs-VASC calculator is at least 5% or so HAS-BLED risk score is 4-5% as well no clear cut right answer about resuming Eliquis however, given he had had falls AFTER the recent SDH - and he was very unsteady & nearly fell during his PT session today - I plan to continue to hold Eliquis for now we can revisit this in a few days from now plans to talk with their daughters about this complex issue as well (4) Metabolic encephalopathy: Plan: 2nd to DKA resolved recent SDH also likely contributed to acute met encephalopathy suspect he had concussion in the setting of his head trauma/SDH (5) Paroxysmal atrial fibrillation: Plan: had been in NSR since admission then converted to rate-controlled a.fib/a.flutter AM of 07/26/24 cont meto succ daily holding Eliquis due to #3 since 07/26/24 all HRs have been <100 at all times reasonable to d/c tele (6) Recurrent falls: Plan: suspect diabetic neuropathy contributes heavily to fall risk legal blindness also contributes to fall risk B12 level 2023 wnl PT/OT tez completed - rehab recommended of note -- inpatient rehab advised when patient was at [facility] but patient refused spoke with pt's - she is agreeable to rehab placement for her orthostatic BPs were negative over the weekend (7) Hypothyroidism: Plan: TSH wnl cont synthroid (8) Hypertension: Plan: uncontrolled but improved with addition of low-dose amlodipine 2.5mg daily cont meto succ daily cont losartan daily (9) Dyslipidemia: Plan: cont statin (10) Iron deficiency anemia: Plan: ferritin 35 earlier this month transferrin sat <10% in fall 2023 cont ferrous sulfate stool heme negative here (11) Legally blind: Plan: noted contributes heavily to fall risk, etc Plan DVT proph - heparin SC BID (cautiously in light of recent SDH) voiding fine after cherry removed updated by phone 07/24 and 07/26/24 can d/c tele move to med/surg dispo - SNF placement Admission and Anticipated Discharge Date Admission Date: July 22, 2024 Subjective no events tele - remains in rate controlled afib/flutter during his PT session today he was very unsteady and nearly fell several times eating well no hypoglycemia during the visit he denied any complaints last documented stool - 07/25/24 Review of Systems Review of Systems: CV - no chest pain pulm - no dyspnea GI - no abd pain or N/V neuro - denies focal motor weakness or any headache Physical Exam Physical Exam: gen - laying in bed, NAD, good spirits neck - no JVD mouth - MMM; no thrush heart - irregular, s1 s2, no murmur lungs - CTA b/l abd - soft NT ND BS+ ext - no edema, pulses 2+ b/l Results & Data Results & Data Vital Signs (Past 12 Hours) Vital Signs Temp Pulse Pulse Resp BP Pulse Ox O2 Del Method 07/27/24 16:00 78 07/27/24 14:52 36.9 C 88 18 146/79 H 95 Room Air 07/27/24 11:30 37.0 C 74 20 150/77 H 97 Room Air 07/27/24 08:00 Room Air 07/27/24 08:00 59 L 07/27/24 08:00 36.8 C 60 18 145/76 H 96 Room Air Laboratory Results Laboratory Results - last 48 hr 07/26/24 07/26/24 07/26/24 07:27 08:22 11:07 Hgb 12.1 L Hct 37.8 L Sodium 134 L Potassium 4.9 Chloride 101 Carbon Dioxide 31 Anion Gap 2 L BUN 10 Creatinine 0.89 Est Cr Clr Drug Dosing 77.6 eGFR 88.81 BUN/Creatinine Ratio 11.2 Glucose 232 H POC Glucose 189 H 244 H Calcium 8.7 07/26/24 07/26/24 07/27/24 16:24 20:31 07:20 Hgb Hct Sodium Potassium Chloride Carbon Dioxide Anion Gap BUN Creatinine Est Cr Clr Drug Dosing eGFR BUN/Creatinine Ratio Glucose POC Glucose 185 H 192 H 293 H Calcium PG Care Time/CCT Total # of Minutes Spent Total Time Spent with Patient: Total time spent is greater than 50% in coordination of care (as documented) at patient's floor/unit and/or counseling patient: Coding Level of Care Code 97812 SUB INP/OBS CARE 2/35MIN Diagnoses Diabetic ketoacidosis E11.10 Diabetes mellitus type 1, uncontrolled E10.65 History of subdural hematoma Z86.79 Metabolic encephalopathy G93.41 Paroxysmal atrial fibrillation I48.0 Recurrent falls R29.6 Acquired hypothyroidism E03.9 Hypothyroidism type: acquired Essential hypertension I10 Hypertension type: essential hypertension Dyslipidemia E78.5 Iron deficiency anemia D50.9 Legally blind H54.8 (7) Hypothyroidism Hypothyroidism type: acquired Qualified Code(s): E03.9 - Hypothyroidism, unspecified (8) Hypertension Hypertension type: essential hypertension Qualified Code(s): I10 - Essential (primary) hypertension
[2024-07-27] MEDS ORDERED: INSULIN ASPART PER UNIT CHARGE SC STA (21:28)
[2024-07-28] MEDS: INSULIN ASPART PER UNIT CHARGE SC SCH ×2 (02:13→08:32)
[2024-07-28 07:40] LABS: BUN Creatinine Ratio 18.3 (10-20); Calcium 9.2 mg/dl (8.6-10.3); Potassium 4.3 mmol/L (3.5-5.1)
[2024-07-28] MEDS ORDERED: LANTUS PER UNIT CHARGE SC SCH (09:00)
--- NOTE | 2024-07-28 09:03 | Pharmacy Report ---
Pharmacy Glycemic Short Note 2 - Date of Service July 28, 2024 - Glycemic Short BSG Results (Last 24 hours): 07/27/24 07/27/24 07/27/24 11:54 16:26 20:56 Glucose POC Glucose 281 H 122 H 300 H 07/27/24 07/28/24 07/28/24 20:57 02:01 07:01 Glucose 214 H POC Glucose 300 H 154 H 07/28/24 07:43 Glucose POC Glucose 207 H OUTPATIENT ANTIDIABETIC REGIMEN: * Lantus 17 units BID, Humalog 15 units w/ breakfast, 12 units w/Lunch, 7 units w/ supper + sliding scale. * A1c 8.6% 07/22/24 ASSESSMENT: 07/28: * Kvng received 66 units of insulin yesterday, 22 of which were basal. BSGs we re: [phone] mg/dL. * Fasting BSG this AM was 207 mg/dL, well above goal. Will increase basal slightly this evening. * Novolog was tightened yesterday. Will continue with these parameters for now. Did show some signs of stacking last evening. Will monitor. * Tolerating T2DM diet. 07/26: * Patient received total of 43 units of insulin yesterday, of which 20 units were basal insulin * Fasting BSG 189 mg/dL - will titrate basal ~10% today * Continue same CF/CR 07/24: * Patient transitioned off of insulin at 1600 yesterday. Dextrose removed from fluid and received 1 unit of novolog for BSG > 168 mg/dL at bedtime. 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 * BSG 79 mg/dL on 0730 check. Will reduce basal dose ~35% to 20 units. This will be given with dinner in an attempt to move to evening dosing at recommendation of agricultural extension educator, as patient remembers this dose * Novolog parameters loosened and goal range adjusted to 140-180 mg/dL for now- monitor. 07/23: * Patient with history of type I diabetes admitted with DKA and started on an insulin infusion which is currently running @ 2.4 units/hr after being held for BSG below initial goal range of 250-350 mg/dL. * On most recent labs, carbon dioxide 22, anion gap 7. Will begin to transition from insulin drip. Patient currently has D51/2NS + 40 kcl @ 150 ml/hr which will continue until insulin infusion is discontinued. * Reviewed recent endocrinology visits, BSGs have been running in the 200s and basal was recently increased to 17 units BID. Will give 30 units of basal x 1. Insulin infusion to be d/c if rate < 2.5 units/hr and two BSGs within goal OR held per protocol and two hours have elapsed since lantus was given. Otherwise will plan to discontinue at 6 hours if these criteria not previous met, if appropriate. * Will begin Novolog ~ stress of 2 outpatient dose/between weight based 2/3. PLAN FOR INPATIENT GLYCEMIC CONTROL: * Basal insulin * Lantus 24 units once daily in evening * Bolus insulin * NovoLog per scale ACHS or Q6hrs while NPO * Goal Range: Low 110 mg/dL - High 140 mg/dL * Correction Factor: 20 mg/dL/unit * Nutritional / Prandial insulin per carb ratio of 1 unit per 6 grams CHO consumed
[2024-07-28] MEDS: CARBOHYDRATES FOR HYPOGLYCEMIA PO PRN (16:46)
[2024-07-28] MEDS: GLUCOSE 10 TAB/TUBE PO PRN (17:12)
[2024-07-28] MEDS: LANTUS PER UNIT CHARGE SC SCH (18:05)
--- NOTE | 2024-07-28 21:39 | Hospitalist Progress Note ---
Date of Service July 28, 2024 Assessment & Plan (1) Diabetic ketoacidosis: Plan: present on admission resolved h/o noncompliance with insulin regimen recent stress of illness/injury (subdural hematoma) likely also to blame no infectious cause found - BioFire resp panel negative, no pneumonia on cxr, u/a not suspicious for UTI, etc. appreciate pharmacy glycemic team & their assistance insulin drip weaned off 07/23/24 basal-bolus SC regimen resumed at that time hemoglobin a1c 8.6% - has not had a hemoglobin a1c <7% dating back to at least 2018 had hypoglycemia several nights ago - pharmacy made insulin adjustments - no lows since BSGs remain labile - defer insulin adjustments to pharmacy glycemic team (2) Diabetes mellitus type 1, uncontrolled: Plan: see #1 above (3) History of subdural hematoma: Plan: right-sided 07/13/24 - 2nd to fall transferred to [facility] [place] was observed for 24 hours no surgical intervention needed CT head 07/22 negative for residual SDH told me he had had several falls at home on 07/22 before his admission for DKA Eliquis was been on hold since 07/13/24 fecal occult is negative was taking keppra for seizure prophylaxis as recommended by Melvi - now d/c had a lengthy discussion with the pt's about pros/cons & risks/benefits of resuming his Eliquis on 07/26/24 by phone stroke risk per CHADs-VASC calculator is at least 5% or so HAS-BLED risk score is 4-5% as well no clear cut right answer about resuming Eliquis however, given he had had falls AFTER the recent SDH - and he was very unsteady & nearly fell during his PT session today - I plan to continue to hold Eliquis for now we can revisit this in a few days from now plans to talk with their daughters about this complex issue as well (4) Metabolic encephalopathy: Plan: 2nd to DKA resolved recent SDH also likely contributed to acute met encephalopathy suspect he had concussion in the setting of his head trauma/SDH (5) Paroxysmal atrial fibrillation: Plan: had been in NSR since admission then converted to rate-controlled a.fib/a.flutter AM of 07/26/24 cont meto succ daily holding Eliquis due to #3 since 3/2/25 all HRs have been <100 at all times reasonable to d/c tele (6) Recurrent falls: Plan: suspect diabetic neuropathy contributes heavily to fall risk legal blindness also contributes to fall risk B12 level 2023 wnl PT/OT tez completed - rehab recommended of note -- inpatient rehab advised when patient was at [facility] but patient refused spoke with pt's - she is agreeable to rehab placement for her orthostatic BPs were negative over the weekend (7) Hypothyroidism: Plan: TSH wnl cont synthroid (8) Hypertension: Plan: uncontrolled but improved with addition of low-dose amlodipine 2.5mg daily cont meto succ daily cont losartan daily (9) Dyslipidemia: Plan: cont statin (10) Iron deficiency anemia: Plan: ferritin 35 earlier this month transferrin sat <10% in fall 2023 cont ferrous sulfate stool heme negative here (11) Legally blind: Plan: noted contributes heavily to fall risk, etc Plan DVT proph - heparin SC BID (cautiously in light of recent SDH) voiding fine after cherry removed updated by phone 07/24 and 07/26/24 can d/c tele move to med/surg dispo - SNF placement Admission and Anticipated Discharge Date Admission Date: July 22, 2024 Subjective "I feel fine. No problem." Review of Systems Constitutional: Negative for antecedent/coincident fevers, chills, diaphoresis, cough, wheeze, sore throat, hemoptysis, chest pains, palpitations, pleurisy, nausea, vomiting, diarrhea, abdominal pain, pelvic pain, hematemesis, hematochezia, melena, hematuria, dysuria, frequency, urgency, headaches, dizziness, lightheadedness, visual changes, hearing changes, weakness, falls, syncope, trauma, travel history, sick contacts, or food/drug ingestions novel or new. All other review of systems are reported as negative by the patient on 07/28/2024. Physical Exam Constitutional: General: Comfortable, coherent, cooperative. Wide awake and alert. Not confused, lethargic, or obtunded. Patient speaks in complete, fluent, and articulate sentences without pause, interruption, cough, or wheeze. HEENT: Normocephalic, atraumatic. Pupils equally round and reactive to light. Extra-ocular muscles intact. No nystagmus, gaze paresis, anisocoria, miosis, mydriasis, hyphema, scleral injection, conjunctivitis, or pterygium. No rhinorrhea or otorrhea. No pharyngeal discharge or erythema. Neck: Supple, no stridor, bruit, goiter, hepatojugular reflux. Jugular venous pressure is estimated to be 8 cm above the sternal angle of Tyron, which is estimated to be 5 cm above the level of the right atrium. Lymph: No anterior/posterior cervical, supraclavicular/infraclavicular, axillary, epitrochlear, or inguinal adenopathy. Chest: Symmetric rise and fall with respirations. Lungs: Clear to auscultation and percussion. No audible expiratory wheeze, egophony, pectoriloquy, increase in tactile fremitus, or flatness/dullness to percussion at the bases. Heart: RRR, S1 and S2 noted. No S3 or S4 summation gallop noted. No tripartite friction rub. Grade II/ early systolic murmur @ LLSB without radiation to the carotids, axilla, or back, and which remains invariant in regards to the respiratory cycle. Abdomen: Soft, generalized tenderness, non-distended. No rebound, guarding, Sood's sign, or organomegaly. Bowel sounds sounds auscultated in all 4 quadrants. Extremities: No clubbing, cyanosis, or edema. 2+ pedal pulses bilaterally. Skin: No decubitus ulcer or enanthem or exanthem. Neurology: Alert and oriented to person, place, time, and situation. DTR+ and symmetric. 5/5 motor strength in all 4 extremities, both proximally and distally. No pronator drift. No facial droop. No tremors, tics, or myoclonus. Urology: No cherry. No urethral discharge. Psychiatry: No suicidal ideation. No homicidal ideation. Results & Data Results & Data Vital Signs (Past 12 Hours) Vital Signs Temp Pulse Resp BP BP Pulse Ox O2 Del Method 07/28/24 21:36 36.6 C 57 L 16 125/58 L 98 Room Air 07/28/24 14:07 36.4 C L 57 L 16 107/68 99 Room Air Laboratory Results 07/22/24 18:20 Aerobic Blood Culture - Final Blood No growth in Aerobic bottle after 5 days. Anaerobic Blood Culture - Final 07/22/24 18:20 Aerobic Blood Culture - Final Blood No growth in Aerobic bottle after 5 days. Anaerobic Blood Culture - Final No growth in Anaerobic bottle after 5 days. 07/28/24 07/28/24 07/28/24 20:56 17:48 17:30 Sodium Potassium Chloride Carbon Dioxide Anion Gap BUN Creatinine Est Cr Clr Drug Dosing eGFR BUN/Creatinine Ratio Glucose POC Glucose 227 H 174 H 63 L* Calcium 07/28/24 07/28/24 07/28/24 17:00 16:41 16:40 Sodium Potassium Chloride Carbon Dioxide Anion Gap BUN Creatinine Est Cr Clr Drug Dosing eGFR BUN/Creatinine Ratio Glucose POC Glucose 57 L* 57 L* 56 L* Calcium 07/28/24 07/28/24 07/28/24 11:22 07:43 07:01 Sodium 134 L Potassium 4.3 Chloride 99 Carbon Dioxide 31 Anion Gap 4 BUN 17 Creatinine 0.93 Est Cr Clr Drug Dosing 74.0 eGFR 85.10 BUN/Creatinine Ratio 18.3 Glucose 214 H POC Glucose 252 H 207 H Calcium 9.2 07/28/24 02:01 Sodium Potassium Chloride Carbon Dioxide Anion Gap BUN Creatinine Est Cr Clr Drug Dosing eGFR BUN/Creatinine Ratio Glucose POC Glucose 154 H Calcium PG Care Time/CCT Total # of Minutes Spent Total Time Spent with Patient: Total time spent is greater than 50% in coordination of care (as documented) at patient's floor/unit and/or counseling patient: Coding Level of Care Code 64109 SUB INP/OBS CARE 2/35MIN Diagnoses Diabetic ketoacidosis E11.10 Diabetes mellitus type 1, uncontrolled E10.65 History of subdural hematoma Z86.79 Metabolic encephalopathy G93.41 Paroxysmal atrial fibrillation I48.0 Recurrent falls R29.6 Acquired hypothyroidism E03.9 Hypothyroidism type: acquired Essential hypertension I10 Hypertension type: essential hypertension Dyslipidemia E78.5 Iron deficiency anemia D50.9 Legally blind H54.8 (7) Hypothyroidism Hypothyroidism type: acquired Qualified Code(s): E03.9 - Hypothyroidism, unspecified (8) Hypertension Hypertension type: essential hypertension Qualified Code(s): I10 - Essential (primary) hypertension
--- NOTE | 2024-07-29 09:16 | Pharmacy Report ---
Pharmacy Glycemic Short Note 2 - Date of Service July 29, 2024 - Glycemic Short BSG Results (Last 24 hours): 07/28/24 07/28/24 07/28/24 11:22 16:40 16:41 POC Glucose 252 H 56 L* 57 L* 07/28/24 07/28/24 07/28/24 17:00 17:30 17:48 POC Glucose 57 L* 63 L* 174 H 07/28/24 07/29/24 20:56 08:00 POC Glucose 227 H 261 H OUTPATIENT ANTIDIABETIC REGIMEN: * Lantus 17 units BID, Humalog 15 units w/ breakfast, 12 units w/Lunch, 7 units w/ supper + sliding scale. * A1c 8.6% 07/22/24 ASSESSMENT: 07/29: * Patient received 63 units of insulin yesterday, 24 of which were basal. BSGs were: [id number] mg/dL. * Did have a hypoglycemic episode at dinner last night. Thankfully patient was asymptomatic. Did require 2 orange juices, 4 glucose tabs, dinner meal, and amp of IV D50W to bring BSG up to 174 mg/dL. This is likely due to high insulin doses at breakfast and lunch stacking. Correction factor was loosened at that time. Will loosen carb ratio this morning to hopefully prevent any further hypoglycemia. * No change to basal dose this morning despite fasting BSG of 261 mg/dL. This is likely elevated from significant amount of carbs/dextrose required to correct hypoglycemia last evening. 07/28: * Kvng received 66 units of insulin yesterday, 22 of which were basal. BSGs were: 745-241-752-300 mg/dL. * Fasting BSG this AM was 207 mg/dL, well above goal. Will increase basal slightly this evening. * Novolog was tightened yesterday. Will continue with these parameters for now. Did show some signs of stacking last evening. Will monitor. * Tolerating T2DM diet. 07/26: * Patient received total of 43 units of insulin yesterday, of which 20 units were basal insulin * Fasting BSG 189 mg/dL - will titrate basal ~10% today * Continue same CF/CR 07/24: * Patient transitioned off of insulin at 1600 yesterday. Dextrose removed from fluid and received 1 unit of novolog for BSG > 168 mg/dL at bedtime. Had significant hypoglycemia early morning babysitter- lantus dose, novolog and fast overnight could all have contributed. * BSG 79 mg/dL on 0730 check. Will reduce basal dose ~35% to 20 units. This will be given with dinner in an attempt to move to evening dosing at recommendation of school vocational educator, as patient remembers this dose * Novolog parameters loosened and goal range adjusted to 140-180 mg/dL for now- monitor. 07/23: * Patient with history of type I diabetes admitted with DKA and started on an insulin infusion which is currently running @ 2.4 units/hr after being held for BSG below initial goal range of 250-350 mg/dL. * On most recent labs, carbon dioxide 22, anion gap 7. Will begin to transition from insulin drip. Patient currently has D51/2NS + 40 kcl @ 150 ml/hr which will continue until insulin infusion is discontinued. * Reviewed recent endocrinology visits, BSGs have been running in the 200s and basal was recently increased to 17 units BID. Will give 30 units of basal x 1. Insulin infusion to be d/c if rate < 2.5 units/hr and two BSGs within goal OR held per protocol and two hours have elapsed since lantus was given. Otherwise will plan to discontinue at 6 hours if these criteria not previous met, if appropriate. * Will begin Novolog ~ stress of 2 outpatient dose/between weight based 2/3. PLAN FOR INPATIENT GLYCEMIC CONTROL: * Basal insulin * Lantus 24 units once daily in evening * Bolus insulin * NovoLog per scale ACHS or Q6hrs while NPO * Goal Range: Low 110 mg/dL - High 140 mg/dL * Correction Factor: 30 mg/dL/unit * Nutritional / Prandial insulin per carb ratio of 1 unit per 8 grams CHO consumed
[2024-07-29] MEDS: INSULIN ASPART PER UNIT CHARGE SC SCH (12:18)
[2024-07-29 13:04] LABS: Basophils # (auto) 0.02 K/uL (0.00-0.20); Basophils % (auto) 0.3 %; Eosinophils # (auto) 0.22 K/uL (0.00-0.50); Eosinophils % (auto) 3.6 %; Hematocrit (blood only) 34.9 % (42.0-52.0); Hemoglobin 11.2 g/dl (14.0-18.0); Immature Granulocytes # (auto) 0.02 K/uL (0.01-0.20); Immature Granulocytes % (auto) 0.3 %; Lymphocytes # (auto) 1.08 K/uL (1.20-3.40); Lymphocytes % (auto) 17.9 %; Mean Corpuscular Hemoglobin 28.2 pg (25.0-34.0); Mean Corpuscular Hgb Conc 32.1 g/dL (32.0-36.0); Mean Corpuscular Volume 87.9 fL (80.0-100.0); Mean Platelet Volume 10.5 fL (9.4-12.4); Monocytes # (auto) 0.61 K/uL (0.11-0.59); Monocytes % (auto) 10.1 %; Neutrophils # (auto) 4.08 K/uL (1.40-6.50); Neutrophils % (auto) 67.8 %; Platelet Count 207 K/uL (130-400); RDW Coefficient of Variation 14.1 % (11.5-14.5); RDW Standard Deviation 45.5 fL (36.4-46.3); Red Blood Count 3.97 M/uL (4.70-6.10); White Blood Count 6.03 K/ul (4.8-10.8)
[2024-07-29 13:24] LABS: BUN Creatinine Ratio 21.9 (10-20); Calcium 9.1 mg/dl (8.6-10.3); Creatinine Clr Calc Pharmacy 60.4 ml/min; Potassium 4.8 mmol/L (3.5-5.1)
--- NOTE | 2024-07-29 18:23 | Hospitalist Progress Note ---
Date of Service July 29, 2024 Assessment & Plan (1) Diabetic ketoacidosis: Plan: present on admission resolved h/o noncompliance with insulin regimen recent stress of illness/injury (subdural hematoma) likely also to blame no infectious cause found - BioFire resp panel negative, no pneumonia on cxr, u/a not suspicious for UTI, etc. appreciate pharmacy glycemic team & their assistance insulin drip weaned off 07/23/24 basal-bolus SC regimen resumed at that time hemoglobin a1c 8.6% - has not had a hemoglobin a1c <7% dating back to at least 2018 had hypoglycemia several nights ago - pharmacy made insulin adjustments - no lows since BSGs remain labile - defer insulin adjustments to pharmacy glycemic team (2) Diabetes mellitus type 1, uncontrolled: Plan: see #1 above (3) History of subdural hematoma: Plan: right-sided 07/13/24 - 2nd to fall transferred to [facility] [place] was observed for 24 hours no surgical intervention needed CT head 07/22 negative for residual SDH told me he had had several falls at home on 07/22 before his admission for DKA Eliquis was been on hold since 07/13/24 fecal occult is negative was taking keppra for seizure prophylaxis as recommended by Melvi - now d/c had a lengthy discussion with the pt's about pros/cons & risks/benefits of resuming his Eliquis on 07/26/24 by phone stroke risk per CHADs-VASC calculator is at least 5% or so HAS-BLED risk score is 4-5% as well no clear cut right answer about resuming Eliquis however, given he had had falls AFTER the recent SDH - and he was very unsteady & nearly fell during his PT session today - I plan to continue to hold Eliquis for now we can revisit this in a few days from now plans to talk with their daughters about this complex issue as well (4) Metabolic encephalopathy: Plan: 2nd to DKA resolved recent SDH also likely contributed to acute met encephalopathy suspect he had concussion in the setting of his head trauma/SDH (5) Paroxysmal atrial fibrillation: Plan: had been in NSR since admission then converted to rate-controlled a.fib/a.flutter AM of 07/26/24 cont meto succ daily holding Eliquis due to #3 since 3/2/25 all HRs have been <100 at all times reasonable to d/c tele (6) Recurrent falls: Plan: suspect diabetic neuropathy contributes heavily to fall risk legal blindness also contributes to fall risk orthostatic BPs were negative over the weekend B12 level 2023 WNL PT/OT tez completed - rehab recommended of note -- inpatient rehab advised when patient was at [facility] but patient refused spoke with pt's - she is agreeable to rehab placement for her Case Management Service of [facility] faxed referrals out to [facility] and [facility] today, 07/29/2024. Stay tuned! (7) Hypothyroidism: Plan: TSH wnl cont synthroid (8) Hypertension: Plan: uncontrolled but improved with addition of low-dose amlodipine 2.5mg daily cont meto succ daily cont losartan daily (9) Dyslipidemia: Plan: cont statin (10) Iron deficiency anemia: Plan: ferritin 35 earlier this month transferrin sat <10% in fall 2023 cont ferrous sulfate stool heme negative here (11) Legally blind: Plan: noted contributes heavily to fall risk, etc Plan DVT proph - heparin SC BID (cautiously in light of recent SDH) voiding fine after cherry removed updated by phone 07/24 and 07/26/24 can d/c tele move to med/surg dispo - SNF placement Admission and Anticipated Discharge Date Admission Date: July 22, 2024 Subjective "I feel fine. No problem." Review of Systems Constitutional: Negative for antecedent/coincident fevers, chills, diaphoresis, cough, wheeze, sore throat, hemoptysis, chest pains, palpitations, pleurisy, nausea, vomiting, diarrhea, abdominal pain, pelvic pain, hematemesis, hematochezia, melena, hematuria, dysuria, frequency, urgency, headaches, dizziness, lightheadedness, visual changes, hearing changes, weakness, falls, syncope, trauma, travel history, sick contacts, or food/drug ingestions novel or new. All other review of systems are reported as negative by the patient on 07/29/2024. Physical Exam Constitutional: General: Comfortable, coherent, cooperative. Wide awake and alert. Not confused, lethargic, or obtunded. Patient speaks in complete, fluent, and articulate sentences without pause, interruption, cough, or wheeze. HEENT: Normocephalic, atraumatic. Pupils equally round and reactive to light. Extra-ocular muscles intact. No nystagmus, gaze paresis, anisocoria, miosis, mydriasis, hyphema, scleral injection, conjunctivitis, or pterygium. No rhinorrhea or otorrhea. No pharyngeal discharge or erythema. Neck: Supple, no stridor, bruit, goiter, hepatojugular reflux. Jugular venous pressure is estimated to be 8 cm above the sternal angle of Tyron, which is estimated to be 5 cm above the level of the right atrium. Lymph: No anterior/posterior cervical, supraclavicular/infraclavicular, axillary, epitrochlear, or inguinal adenopathy. Chest: Symmetric rise and fall with respirations. Lungs: Clear to auscultation and percussion. No audible expiratory wheeze, egophony, pectoriloquy, increase in tactile fremitus, or flatness/dullness to percussion at the bases. Heart: RRR, S1 and S2 noted. No S3 or S4 summation gallop noted. No tripartite friction rub. Grade II/ early systolic murmur @ LLSB without radiation to the carotids, axilla, or back, and which remains invariant in regards to the respiratory cycle. Abdomen: Soft, generalized tenderness, non-distended. No rebound, guarding, Sood's sign, or organomegaly. Bowel sounds sounds auscultated in all 4 quadrants. Extremities: No clubbing, cyanosis, or edema. 2+ pedal pulses bilaterally. Skin: No decubitus ulcer or enanthem or exanthem. Neurology: Alert and oriented to person, place, time, and situation. DTR+ and symmetric. 5/5 motor strength in all 4 extremities, both proximally and distally. No pronator drift. No facial droop. No tremors, tics, or myoclonus. Urology: No cherry. No urethral discharge. Psychiatry: No suicidal ideation. No homicidal ideation. Results & Data Results & Data Vital Signs (Past 12 Hours) Vital Signs Temp Pulse Resp BP Pulse Ox O2 Del Method 07/29/24 14:14 36.8 C 54 L 16 115/58 L 97 Room Air 07/29/24 07:27 36.7 C 68 18 124/53 L 97 Room Air Laboratory Results 07/29/24 07/29/24 07/29/24 16:43 12:53 12:52 WBC 6.03 RBC 3.97 L Hgb 11.2 L Hct 34.9 L MCV 87.9 MCH 28.2 MCHC 32.1 RDW Std Deviation 45.5 RDW Coeff of Roland 14.1 Plt Count 207 MPV 10.5 Immature Gran % (Auto) 0.3 Neut % (Auto) 67.8 Lymph % (Auto) 17.9 Mcduffie % (Auto) 10.1 Eos % (Auto) 3.6 Baso % (Auto) 0.3 Neut # (Auto) 4.08 Lymph # (Auto) 1.08 L Mcduffie # (Auto) 0.61 H Eos # (Auto) 0.22 Baso # (Auto) 0.02 Immature Gran # (Auto) 0.02 Sodium 130 L Potassium 4.8 Chloride 97 L Carbon Dioxide 30 Anion Gap 3 BUN 25 H Creatinine 1.14 Est Cr Clr Drug Dosing 60.4 eGFR 66.65 BUN/Creatinine Ratio 21.9 H Glucose 362 H* POC Glucose 217 H Lactate 2.4 H* Calcium 9.1 07/29/24 07/29/24 07/29/24 11:54 11:53 08:00 WBC RBC Hgb Hct MCV MCH MCHC RDW Std Deviation RDW Coeff of Roland Plt Count MPV Immature Gran % (Auto) Neut % (Auto) Lymph % (Auto) Mcduffie % (Auto) Eos % (Auto) Baso % (Auto) Neut # (Auto) Lymph # (Auto) Mcduffie # (Auto) Eos # (Auto) Baso # (Auto) Immature Gran # (Auto) Sodium Potassium Chloride Carbon Dioxide Anion Gap BUN Creatinine Est Cr Clr Drug Dosing eGFR BUN/Creatinine Ratio Glucose POC Glucose 298 H 331 H* 261 H Lactate Calcium 07/28/24 20:56 WBC RBC Hgb Hct MCV MCH MCHC RDW Std Deviation RDW Coeff of Roland Plt Count MPV Immature Gran % (Auto) Neut % (Auto) Lymph % (Auto) Mcduffie % (Auto) Eos % (Auto) Baso % (Auto) Neut # (Auto) Lymph # (Auto) Mcduffie # (Auto) Eos # (Auto) Baso # (Auto) Immature Gran # (Auto) Sodium Potassium Chloride Carbon Dioxide Anion Gap BUN Creatinine Est Cr Clr Drug Dosing eGFR BUN/Creatinine Ratio Glucose POC Glucose 227 H Lactate Calcium PG Care Time/CCT Total # of Minutes Spent Total Time Spent with Patient: Total time spent is greater than 50% in coordination of care (as documented) at patient's floor/unit and/or counseling patient: Coding Level of Care Code 04755 SUB INP/OBS CARE 2/35MIN Diagnoses Diabetic ketoacidosis E11.10 Diabetes mellitus type 1, uncontrolled E10.65 History of subdural hematoma Z86.79 Metabolic encephalopathy G93.41 Paroxysmal atrial fibrillation I48.0 Recurrent falls R29.6 Acquired hypothyroidism E03.9 Hypothyroidism type: acquired Essential hypertension I10 Hypertension type: essential hypertension Dyslipidemia E78.5 Iron deficiency anemia D50.9 Legally blind H54.8 (7) Hypothyroidism Hypothyroidism type: acquired Qualified Code(s): E03.9 - Hypothyroidism, unspecified (8) Hypertension Hypertension type: essential hypertension Qualified Code(s): I10 - Essential (primary) hypertension
[2024-07-30 07:35] VITALS: RESP 16; TEMP 99
[2024-07-30] MEDS: INSULIN ASPART PER UNIT CHARGE SC SCH ×3 (08:22→17:21)
--- NOTE | 2024-07-30 12:59 | Discharge Summary ---
Discharge Summary Date of Service July 30, 2024 Principal Dx & Hospital Course #1 = Principal Diagnosis (1) Diabetic ketoacidosis: DKA was present on admission date 07/22/2024. Long-term glycemic control remains poor with HbA1c 8.6% (07/22/2024, 2:41pm). Etiology of DKA was multi-factorial and included contributions from (A) noncompliance with insulin regimen, (B) dietary indiscretion, and/or (C) intercurrent illness including subdural hematoma. No infectious cause(s) found - [employer] resp panel (07/22/2024, 3:37pm) negative/normal, and no infiltrate on admission 07/22/2024, 5:21pm portable CXR, making acute viral/bacterial pneumonia unlikely; 07/22/2024, 3:12pm U/A negative for leukocyte esterase and nitrites, making acute UTI unlikely. DKA RESOLVED on 07/23/2024 with regular insulin drip weaned off and replaced with basal-bolus aspart insulin sliding scale SQ qac + qhs. (2) Diabetes mellitus type 1, uncontrolled: see #1 above (3) History of subdural hematoma: Acute right - sided subdural hematoma, described as: "A small right subdural hematoma is present, right occipital/high parietal, image 20, series 2, measuring up to 6.1 mm with no significant mass effect or calvarial fracture" (07/13/2024, 6:50pm CT brain without contrast). No surgical intervention needed. Repeat CT brain without contrast (07/22/2024, 1:40pm) negative for residual subdural hematoma. Patient's stated that the patient had had several falls at home on 07/22/2024, before his 07/22/2024 [facility] admission for acute DKA. Patient's home-scheduled Eliquis has been on hold since 07/13/2024. Fecal occult (07/24/2024, 1:22pm) was negative. Of note, patient had been taking keppra for seizure prophylaxis as recommended by Melvi - now d/c [facility] Hospitalist Dr. Kiran Odonnell had a lengthy discussion with the pt's about pros/cons & risks/benefits of resuming his Eliquis on 07/26/24 by phone: "Stroke risk per CHADs-VASC calculator is at least 5% or so HAS-BLED risk score is 4-5% as well No clear cut right answer about resuming Eliquis However, given he had had falls AFTER the recent SDH - and he was very unsteady & nearly fell during his PT session today - I plan to continue to hold Eliquis for now." Patient was subsequently discharged to [facility] today, 07/30/2024, OFF Eliquis as the risk of recurrent brain bleed with catastrophic / fatal consequences should patient fall down again, outweighs any potential benefit of stroke prophylaxis from patient resuming Eliquis on 07/30/2024. (4) Metabolic encephalopathy: 2nd to DKA resolved recent SDH also likely contributed to acute met encephalopathy suspect he had concussion in the setting of his head trauma/SDH (5) Paroxysmal atrial fibrillation: had been in NSR since admission then converted to rate-controlled a.fib/a.flutter AM of 07/26/24 cont meto succ daily holding Eliquis due to #3 since 07/26/24 all HRs have been <100 at all times reasonable to d/c tele (6) Recurrent falls: suspect diabetic neuropathy contributes heavily to fall risk legal blindness also contributes to fall risk orthostatic BPs were negative over the weekend B12 level 2023 WNL PT/OT tez completed - rehab recommended of note -- inpatient rehab advised when patient was at [facility] but patient refused spoke with pt's - she is agreeable to rehab placement for her Case Management Service of Ms. Jesika Johnson faxed referrals out to [facility] and [facility] today, 07/29/2024. Patient was subsequently discharged to [facility] on 07/30/2024. (7) Hypothyroidism: Patient appears euthyroid with no goiter, lid lag, or proptosis on exam with screening TSH normal at 0.479 uIU/mL (07/22/2024, 6:20pm) on home-scheduled synthroid 250ug PO daily. (8) Hypertension: Modestly controlled with discharge BP 154/60 (07/30/2024, 7:35am) on hospital- started amlodipine 2.5mg PO qam, home-scheduled losartan 25mg PO qam, and home- scheduled metoprolol 50mg PO qam. Patient will continue all 3 medications on hospital discharge to [facility] on 07/30/2024. (9) Dyslipidemia: Asymptomatic on home-scheduled atorvastatin 80mg PO qpm. Patient will continue this home-scheduled medication on hospital discharge to [facility] on 07/30/2024. (10) Iron deficiency anemia: cf., low iron 18 ug/dL (03/21/2024, 6:47am), normal TIBC 320 ug/dL (03/21/2024, 6:47am), and normal ferritin 47.6 ng/mL (03/21/2024, 6:47am). Patient received home-scheduled ferrous sulfate 325mg PO bid while in [facility]. Patient will continue this home-scheduled medication on hospital discharge to [facility] on 07/30/2024. (11) Legally blind: Contributes heavily to fall risk on a daily basis. Plan DVT proph - heparin SC BID (cautiously in light of recent SDH) Voiding well after cherry removed on 07/23/2024. Observe. Admission HPI Per Admitting Provider Kvng is a 74-year-old male with PMH of uncontrolled T1DM, DKA, osteoporosis, recurrent falls, CAD, paroxysmal atrial fibrillation (apixaban on hold), iron deficiency anemia, and subdermal hematoma. He presented on 07/[address] scan, but was found to have a BSG greater than 600 on arrival. Patient is a poor historian at this time. He is able to convey some recent events, such as his fall, which he reports occurred last Saturday where he hit the back of his head very hard, and had to go to [place] for brain bleed. No sick contacts to his knowledge. He is initially unsure why he came to the hospital today, and does not respond appropriately to all questioning. No family at bedside. However, the ED spoke with his , who reported increased confusion and recurrent falls at home over the past couple days. Patient reports that he not take his medicine today, such as his insulin. Patient is mildly hypotensive at 113/49 at time of admission; vitals otherwise stable. ED course: NSS 1000 mL IV x 2 IV insulin drip Difficult to obtain given patient's altered mental status, however: Patient endorses fatigue, headache, dizziness, and lightheadedness. Patient denies fever, chills, night-sweats, rashes, tick bites, chest pain, SOB, cough, abdominal pain, nausea, vomiting, diarrhea, dysuria, or burning with urination. Attempted to call patient's (Roselia) x 2, but was unable to reach. Left brief voicemail message requesting callback. While patient is currently altered, will plan to leave patient is a full code at this time, as he was a full code in February 2024 and during all prior visits. Discharge Exam Constitutional General: Comfortable, coherent, cooperative. Wide awake and alert. Not confused, lethargic, or obtunded. Patient speaks in complete, fluent, and articulate sentences without pause, interruption, cough, or wheeze. HEENT: Normocephalic, atraumatic. Pupils equally round and reactive to light. Extra-ocular muscles intact. No nystagmus, gaze paresis, anisocoria, miosis, mydriasis, hyphema, scleral injection, conjunctivitis, or pterygium. No rhinorrhea or otorrhea. No pharyngeal discharge or erythema. Neck: Supple, no stridor, bruit, goiter, hepatojugular reflux. Jugular venous pressure is estimated to be 8 cm above the sternal angle of Tyron, which is estimated to be 5 cm above the level of the right atrium. Lymph: No anterior/posterior cervical, supraclavicular/infraclavicular, axillary, epitrochlear, or inguinal adenopathy. Chest: Symmetric rise and fall with respirations. Lungs: Clear to auscultation and percussion. No audible expiratory wheeze, egophony, pectoriloquy, increase in tactile fremitus, or flatness/dullness to percussion at the bases. Heart: RRR, S1 and S2 noted. No S3 or S4 summation gallop noted. No tripartite friction rub. Grade II/ early systolic murmur @ LLSB without radiation to the carotids, axilla, or back, and which remains invariant in regards to the respiratory cycle. Abdomen: Soft, generalized tenderness, non-distended. No rebound, guarding, Sood's sign, or organomegaly. Bowel sounds sounds auscultated in all 4 sahron drants. Extremities: No clubbing, cyanosis, or edema. 2+ pedal pulses bilaterally. Skin: No decubitus ulcer or enanthem or exanthem. Neurology: Alert and oriented to person, place, time, and situation. DTR+ and symmetric. 5/5 motor strength in all 4 extremities, both proximally and distally. No pronator drift. No facial droop. No tremors, tics, or myoclonus. Urology: No cherry. No urethral discharge. Psychiatry: No suicidal ideation. No homicidal ideation. Discharge Plan Discharge Items Patient Disposition: Transfer Inpatient Rehab Fac Reason For Visit: DKA Discharge Diagnosis: Ambulatory dysfunction in need of acute inpatient rehab Condition on Discharge: Fair Activity: Resume your previous activity Non-emergency contact: Primary Care Provider Call non-emergency contact if: you have any medication questions Follow-up/Referrals: Belinda Wilcox MD [Primary Care Provider] - Diet: Carb Count or DM1, Heart Healthy, Low Fat and Low Sodium (2gm) Addtl Attending Provider Instructions: See your PCP Dr. Belinda Wilcox within 7 days of hospital discharge. Pending Studies at Discharge: No Stand-Alone Forms: My [facility] Skilled Items Patient informed of condition?: Yes DNR: No Discharge Level of Care: Acute rehab Communicable Disease: No Discharge Prognosis: Stable Lines: None Urinary Catheter: No Medications and DC Order Prescriptions: New insulin glargine [Lantus U-100 Insulin] 100 unit/mL Solution 27 unit SC DAILY@1800 Qty: 10 0RF amlodipine [Norvasc] 5 mg Tablet 2.5 mg PO QAM Qty: 30 0RF Continued (DME) pen needle, diabetic [BD Ultra-Fine Verito Pen Needle] 32 gauge x 5/32" needle See Rx Instructions .ROUTE .MEDSUPPLY Qty: 500 3RF Rx Instructions: Use 5 daily to inject insulin (DME) Dexcom G7 Sensor Device See Rx Instructions .Route Rx Instructions: As directed acetaminophen [Tylenol Extra Strength] 500 mg tablet 500 - 1,000 mg PO Q8H PRN (Reason: pain) Qty: 90 3RF atorvastatin 80 mg tablet 80 mg PO QPM Qty: 90 3RF Rx Instructions: for cholesterol cyanocobalamin (vitamin B-12) 1,000 mcg tablet 1,000 mcg PO QAM Qty: 90 3RF insulin lispro [Humalog KwikPen Insulin] 100 unit/mL insulin pen See Rx Instructions .ROUTE .COMPLEX MDD 75 units Qty: 75 3RF Rx Instructions: Lispro 15U w/ B, 12U L, 7U supper + additional per sliding scale levothyroxine 50 mcg tablet 50 mcg PO QAM Qty: 90 3RF levothyroxine 200 mcg tablet 200 mcg PO QAM Qty: 90 3RF metoprolol succinate 50 mg tablet extended release 24 hr 50 mg PO QAM Qty: 90 3RF cholecalciferol (vitamin D3) [Vitamin D3] 125 mcg (5,000 unit) tablet 250 mcg PO QAM Qty: 60 11RF Ocuvite Adult 50 Plus 250 mg (90 mg-160 mg) capsule 1 cap PO DAILY multivitamin [One Daily Multivitamin] Tablet 1 tab PO DAILY ferrous sulfate 324 mg (65 mg iron) tablet,delayed release (DR/EC) 324 mg PO BID levetiracetam 500 mg tablet 500 mg PO BID Patient Comments: CONFIRMED W/ PT'S ON 07/17/24 Rx Instructions: X7 DAYS (DME) Ketostix Strip See Rx Instructions .ROUTE .MEDSUPPLY Qty: 25 11RF Rx Instructions: Check if blood sugars are high > 4 to 6 hours Simbrinza 1-0.2 % Drops,Suspension 1 drp OPHTHALMIC (EYE) BID omeprazole 40 mg capsule,delayed release(DR/EC) 40 mg PO HS losartan 25 mg tablet 25 mg PO QAM docusate sodium [Colace] 100 mg capsule 200 mg PO HS escitalopram oxalate [Lexapro] 20 mg tablet 20 mg PO QAM thiamine HCl (vitamin B1) 100 mg Tablet 200 mg PO QAM Qty: 30 0RF Held Eliquis 5 mg tablet 5 mg PO BID Qty: 180 3RF Hold Instructions: Resume on 08/29/24. Discontinued insulin glargine [Lantus Solostar U-100 Insulin] 100 unit/mL (3 mL) insulin pen 17 unit subcut BID Patient Comments: CONFIRMED ON 07/17/24 W/ PT'S Rx Instructions: 17 UNITS AT LUNCH, 17 UNITS HS Discharge Orders: Discharge Order (Routine); Ordered 07/30/24 Ordered By: Rafiq Dixon Admission Data Admit Date/Time: 07/22/24 17:21 Attending Provider: Rafiq Dixon Admit Provider: Anthony Uribe Primary Care Provider: Belinda Wilcox Other Providers: Vian[facility] [place]; Anthony Uribe; [place]; [facility]; [facility] Stay Data Consultations 07/22/24 16:27 ED Decision to Admit Stat Pending Results Patient Have Any Pending Studies at Discharge: No Discharge Instructions Given to Patient (Per Discharging Provider) See your PCP Dr. Belinda Wilcox within 7 days of hospital discharge. Total Time Total Time Spent Total Time Spent (In Minutes): 35 minutes. Of this time period, 18 minutes were spent in coordinating patient's discharge. Coding Level of Care Code 05541 INP/OBS DISCH >30 MIN Diagnoses Diabetic ketoacidosis E11.10 Diabetes mellitus type 1, uncontrolled E10.65 History of subdural hematoma Z86.79 Metabolic encephalopathy G93.41 Paroxysmal atrial fibrillation I48.0 Recurrent falls R29.6 Acquired hypothyroidism E03.9 Hypothyroidism type: acquired Essential hypertension I10 Hypertension type: essential hypertension Dyslipidemia E78.5 Iron deficiency anemia D50.9 Legally blind H54.8
[2024-07-30 14:44] VITALS: BP 102/62; PULSE 66; O2SAT 99
[2024-07-30] MEDS: LANTUS PER UNIT CHARGE SC SCH (17:27)
[2024-07-31] MEDS ORDERED: INSULIN ASPART PER UNIT CHARGE SC SCH (07:30)
== END 2024-07-30 17:35 | DRG 637 ==
LOC: ED 14:05 → SUATTDRO 17:21 → 1E 17:21 → 2S 07-24 06:15 → 3W 07-27 20:51